=== PATIENT | male | born 1970 | race Caucasian/White ===

== ENCOUNTER → 2016-10-27 | Outpatient (CLI) | payer OTHER ==
--- NOTE | 2016-10-29 10:43 | PE ---
Nuclear medicine PET/CT HISTORY: Esophageal carcinoma Patient received 9.8 mCi F-18 FDG intravenously and delayed scanning performed from the skull base th rough the mid thighs. Localization and attenuation correction CT scan was performed Correlation to previous nuclear medicine PET/CT July FINDINGS: Neck and chest: There is a nodular density seen at the left costophrenic angle measuring 12 mm not pr esent on previous exam, no uptake seen. Some postinflammatory change present at the right lung base m edially similar to prior and may be postinflammatory and shows only mild uptake, SUV less than 2. Sim ilarly in the lingula peripherally there is a somewhat nodular area present measuring 11 mm not seen on prior PET/CT, no uptake seen. Distal esophageal thickening extending into the stomach is again not ed SUV 4-5. No mediastinal, axillary, or hilar adenopathy. Abdomen pelvis: No retroperitoneal adenopathy. There is a jejunal tube present in the left lower quad rant. Uptake in the anal region is likely physiologic. IMPRESSION: Metastatic disease is not evident. Hypermetabolic uptake compatible with patient's known esophageal carcinoma.
== END | disposition home or self-care (01) ==
LOC: RADPETMAIN 12:35
PROVIDERS: ATTEND Radiology Radiation Oncology
DX: C15.5 Malignant neoplasm of lower third of esophagus (principal)
CPT/HCPCS: 78815; A9552

== ENCOUNTER → 2016-11-20 | Outpatient (CLI) | payer OTHER ==
--- NOTE | 2016-11-20 17:28 | CT ---
EXAMINATION TYPE: CT abdomen pelvis w con DATE OF EXAM: 11/20/2016 5:02 PM COMPARISON: PET/CT October 27, 2016 HISTORY: History of esophageal cancer. Right upper quadrant pain x [address] DLP: 805.20 mGycm. Automated exposure control for dose reduction was used. TECHNIQUE: Helical acquisition of images was performed from the lung bases through the pelvis. CONTRAST: Performed with Oral Contrast and with IV Contrast, patient injected with 100 mL of Omnipaqu e 300. FINDINGS: The previously seen distal esophageal mural thickening extending into the stomach has incre ased in its dimensions, previously measuring 2.5 cm serosa to serosa in the AP dimension, now measuri ng 3.6 cm from serosa to serosa in the AP dimension. The transverse measurement exceeds 7 cm presentl y, showing mural thickening of the gastric cardia; this transverse dimension previously measured appr oximately 5.5 cm. There are small ill-defined opacities at the left lung base both anteriorly and posteriorly. Nonspeci fic, these appear to represent inflammatory change without aleksandr consolidation. Visualized pleural an d pericardial spaces are negative. The stomach is moderately distended, mildly more so than the previous study. The liver, biliary tree, pancreas, spleen, kidneys, adrenals, bowel and vasculature are unremarkable. Jejunostomy tube apprec iated, and unremarkable in appearance. In the pelvis, the vasculature is unremarkable. The solid and hollow viscera are also unremarkable. N o mass or mass effect. No adenopathy. Skeletal structures are unremarkable. IMPRESSION: 1. INTERVAL WORSENING WITH DISTAL ESOPHAGEAL THICKENING INCREASED SINCE THE PRIOR STUDY. 2. Mild inflammatory changes at the left lung base.
== END ==
LOC: RADCTMAIN 14:58
PROVIDERS: ATTEND Internal Medicine Hematology & Oncology
DX: R10.84 Generalized abdominal pain (principal)
CPT/HCPCS: 74177; Q9967

== ENCOUNTER 2016-11-23 11:27 | Day surgery (SDC) | payer OTHER ==
[2016-11-22 12:17] VITALS: BMI 25.7
[~2016-11-23 11:27] MED LIST: DEXAMETHASONE SOD PHOSPHATE 10 MG/ML 1 ML VIAL IV ONE; LACTATED RINGERS 1,000 ML IV SCH; MIDAZOLAM 2 MG/2 ML VIAL IV PRN; ONDANSETRON 4 MG/2 ML VIAL IVP ONE; SCOPOLAMINE 1.5MG/72HR PATCH TRANSDERM ONE; fentaNYL (PF) 50 MCG/ML 2 ML AMP IV PRN
[2016-11-23] MEDS ORDERED: LACTATED RINGERS 1,000 ML IV ONE (11:50)
[2016-11-23] MEDS ORDERED: LIDOCAINE 1% 20 ML VIAL (10MG/ML) FOR IV START INTRADERMA ONE (11:51)
[2016-11-23] MEDS ORDERED: ONDANSETRON 4 MG/2 ML VIAL IVP ONE (11:53)
[2016-11-23 11:59] VITALS: TEMP 98
[2016-11-23] MEDS ORDERED: PROPOFOL 10 MG/ML 20 ML VIAL IV ONE (12:48)
[2016-11-23] MEDS ORDERED: LIDOCAINE 1% INJ 10MG/ML (20 ML MDV) ONE (12:48)
--- NOTE | 2016-11-23 13:07 | P.PCN ---
Date of Procedure: 11/23/16 Procedure(s) Performed: BRIEF HISTORY: Patient is a 45-year-old, pleasant, white male, scheduled for an upper endoscopy as a part of follow-up of esophageal adenocarcinoma diagnosed in July 2016. He is status post neoadjuvant chemoradiation which ended about a month ago. He lost 40 pounds since the onset of his symptoms. He has been complaining of epigastric and right upper quadrant abdominal pain. He had a CT of the abdomen and pelvis done in the last week and was noted to have thickening of the distal esophagus. He is hence scheduled for an upper endoscopy as a follow-up. PROCEDURE PERFORMED: Esophagogastroduodenoscopy with biopsy. PREOPERATIVE DIAGNOSIS: Follow-up distal esophageal adenocarcinoma diagnosed in July 2016 status post chemoradiation therapy that ended a month ago. IV sedation per anesthesia. PROCEDURE: After informed consent was obtained, the patient was brought into the endoscopy unit. IV sedation was administered by Anesthesia under continuous monitoring. Initially the Olympus GIF-140 video endoscope was inserted into the mouth. Esophagus intubated without any difficulty. It was gradually advanced into the stomach and duodenum and carefully examined. The bulb and the second part of the duodenum appeared normal. The scope at this time was withdrawn to the stomach, adequately insufflated with air, and upon careful examination, mucosa of the antrum, body, cardia and the fundus appeared normal. The scope was then withdrawn into the esophagus. The GE junction was located at 40 cm from the incisors. There was a 1.5 cm polypoid mass noted in the distal esophagus just above the GE junction which was biopsied. There were changes consistent with radiation induced esophagitis extending from 30-40 cm from the incisors with mucosal erythema and exudates. At 25 cm from the incisors there were 2 small nodular areas identified and this was also biopsied. The proximal esophagus appeared normal and the patient tolerated the procedure well. IMPRESSION: 1. Distal esophageal polypoid mass measuring 1 cm in size, status post biopsies. 2. Radiation esophagitis. 3. 2 small nodules noted in the mid esophagus at 25 cm from the incisors status post biopsies. RECOMMENDATIONS: The findings of this examination were discussed with the patient as well as his family. He was advised to follow with the biopsy results and follow with , as scheduled.
[2016-11-23 13:35] VITALS: RESP 16
[2016-11-23 13:44] VITALS: BP 115/80; PULSE 99
== END 2016-11-23 13:51 | disposition home or self-care (01) ==
LOC: ORWHC2ENDO 11:27
PROVIDERS: ATTEND Internal Medicine Gastroenterology
DX: C15.5 Malignant neoplasm of lower third of esophagus (principal); K21.0 Gastro-esophageal reflux disease with esophagitis; K22.10 Ulcer of esophagus without bleeding; Z92.21 Personal history of antineoplastic chemotherapy; Z92.3 Personal history of irradiation; Z79.899 Other long term (current) drug therapy; Z88.5 Allergy status to narcotic agent; Z88.8 Allergy status to other drugs, medicaments and biological substances; Z93.1 Gastrostomy status
CPT/HCPCS: 88305; 88342; 43239; J2405; J2001; J2704

== ENCOUNTER → 2017-02-23 | Outpatient (CLI) | payer OTHER ==
--- NOTE | 2017-02-23 12:21 | PE ---
EXAMINATION TYPE: PET CT fusion skull to thigh DATE OF EXAM: 02/23/2017 CLINICAL HISTORY: EXAMINATION TYPE: PET CT fusion skull to thigh CLINICAL HISTORY: Esophageal cancer progress study with interval surgery December 21, 2016. TECHNIQUE: Following the intravenous administration of 13.78 mCi of F-18 FDG, whole body images are performed from the skull base to the midthigh. Images are reviewed on the computer in the coronal, axial, and sagittal planes. Reconstructed rotating images are created on independent workstation and reviewed on the computer. A non-contrast CT is performed in conjunction with the PET scan. COMPARISON: Prior PET/CT October [address] abdomen and pelvis November 20, 2016. FINDINGS: SKULL BASE AND NECK: No suspicious hypermetabolic uptake is seen in the neck suggest neck adenopathy . CHEST, MEDIASTINUM, AND HILAR REGION: There are postsurgical changes from total esophagectomy and gas tric pull-up procedure identified. No areas of suspicious hypermetabolic uptake are present in the th orax. ABDOMEN AND PELVIS: No suspicious hypermetabolic uptake is seen in the abdomen or pelvis. OSSEOUS STRUCTURES: No suspicious hypermetabolic uptake is seen in osseous structures. OTHER CT: Some coronary artery calcification is redemonstrated. There is tiny pericardial effusion an teriorly and inferiorly seen slightly more prominent versus prior studies. Small degree of bilateral gynecomastia is redemonstrated. Some central zone calcifications are seen in normal size prostate gland. There is some facet arthropathy in the lower lumbar spine. IMPRESSION: Interval surgery without abnormal hypermetabolic uptake to suggest residual or metastatic malignancy.
== END | disposition home or self-care (01) ==
LOC: RADPETMAIN 09:13
PROVIDERS: ATTEND Radiology Radiation Oncology
DX: C15.5 Malignant neoplasm of lower third of esophagus (principal); Z98.890 Other specified postprocedural states
CPT/HCPCS: 78815; A9552

== ENCOUNTER 2017-04-10 07:34 | Day surgery (SDC) | payer OTHER ==
[~2017-04-10 07:34] MED LIST changes: -DEXAMETHASONE SOD PHOSPHATE 10 MG/ML 1 ML VIAL IV ONE; -MIDAZOLAM 2 MG/2 ML VIAL IV PRN; -ONDANSETRON 4 MG/2 ML VIAL IVP ONE; -SCOPOLAMINE 1.5MG/72HR PATCH TRANSDERM ONE; -fentaNYL (PF) 50 MCG/ML 2 ML AMP IV PRN
[2017-04-10] MEDS ORDERED: DEXAMETHASONE SOD PHOSPHATE 10 MG/ML 1 ML VIAL IV ONE (08:49)
[2017-04-10 08:52] VITALS: TEMP 97.9
[2017-04-10] MEDS ORDERED: ONDANSETRON 4 MG/2 ML VIAL IVP STA (08:53)
[2017-04-10] MEDS ORDERED: fentaNYL (PF) 50 MCG/ML 2 ML AMP ONE (09:06)
[2017-04-10] MEDS ORDERED: PROPOFOL 10 MG/ML 20 ML VIAL IV ONE (09:06)
[2017-04-10] MEDS ORDERED: LIDOCAINE 1% INJ 10MG/ML (20 ML MDV) ONE (09:06)
[2017-04-10] MEDS ORDERED: LIDOCAINE 1% 20 ML VIAL (10MG/ML) FOR IV START INTRADERMA ONE (09:07)
--- NOTE | 2017-04-10 09:28 | P.PCN ---
Date of Procedure: 04/10/17 Preoperative Diagnosis: Postoperative Diagnosis: Procedure(s) Performed: BRIEF HISTORY: Patient is a 46-year-old, pleasant, white male, diagnosed with distal esophageal signet cell type adenocarcinoma in July 2016 following which she underwent neoadjuvant chemoradiation and subsequently total esophagectomy with gastric pull-through at [facility] in December 2016. According to the patient, the surgical margins at the anastomosis were positive for malignant cells. He was recently seen by Dr. Coyle, thoracic surgeon at [facility] who recommended an upper endoscopy with biopsies to evaluate further. Patient presently is asymptomatic. Denies any dysphagia. He has occasional passive regurgitation. PROCEDURE PERFORMED: Esophagogastroduodenoscopy with biopsy. PREOPERATIVE DIAGNOSIS: Follow-up distal esophageal adenocarcinoma diagnosed in July 2016 status post neoadjuvant chemoradiation and surgery in 2069. IV sedation per anesthesia. PROCEDURE: After informed consent was obtained, the patient was brought into the endoscopy unit. IV sedation was administered by Anesthesia under continuous monitoring. Initially the Olympus GIF-140 video endoscope was inserted into the mouth. Esophagus intubated without any difficulty. It was gradually advanced and at 19 cm from the incisors the gastroesophageal anastomosis was identified. The anastomotic site appeared normal. There was no mucosal abnormality, friability or masses identified. However multiple biopsies were done from the anastomosis. The scope at this time was advanced through the gastric pull- through into the antrum and to the duodenum. The bulb and the second part of the duodenum appeared normal. The scope at this time was withdrawn to the stomach, adequately insufflated with air, and upon careful examination, mucosa of the antrum, body, appeared normal. There was small amount of retained food noted in the stomach. Retroflexion was performed in the stomach and the gastroesophageal anastomosis was once again visualized and the mucosa just distal to the anastomosis including the gastric folds appeared normal. The scope was then withdrawn into the esophagus. The GE anastomosis was located at 19 cm from the incisors. The rest of the proximal esophagus appeared normal and the patient tolerated the procedure well. IMPRESSION: 1. Normal-appearing esophagogastric anastomosis at 19 cm from the incisors with no tumor recurrence, status post multiple biopsies. 2. Small amount of retained food in the stomach. RECOMMENDATIONS: The findings of this examination were discussed with the patient as well as his family. As requested by the patient said be sent to Dr. Coyle at [facility] directly. Implants: Indications for Procedure: Operative Findings: Description of Procedure:
[2017-04-10 09:49] VITALS: BP 110/71; PULSE 78; RESP 18
== END 2017-04-10 09:59 | disposition home or self-care (01) ==
LOC: ORWHC2ENDO 07:34
PROVIDERS: ATTEND Internal Medicine Gastroenterology
DX: Z09 Encounter for follow-up examination after completed treatment for conditions other than malignant neoplasm (principal); Z85.01 Personal history of malignant neoplasm of esophagus; K21.0 Gastro-esophageal reflux disease with esophagitis; K29.50 Unspecified chronic gastritis without bleeding; Z90.49 Acquired absence of other specified parts of digestive tract; J45.990 Exercise induced bronchospasm; Z79.891 Long term (current) use of opiate analgesic; Z79.899 Other long term (current) drug therapy; Z88.5 Allergy status to narcotic agent; Z88.8 Allergy status to other drugs, medicaments and biological substances
CPT/HCPCS: 88305; 88342; 43239; J1100; J2405; J2001; J3010; J2704

== ENCOUNTER → 2017-06-22 | Outpatient (CLI) | payer OTHER ==
--- NOTE | 2017-06-22 13:59 | PE ---
Nuclear medicine PET/CT HISTORY: Esophageal carcinoma subsequent Patient received 13 mCi F-18 FDG intravenously in delayed scanning performed from the skull base to t he mid thighs. Localization and attenuation correction CT scan was performed. Correlation to prior nuclear medicine PET/CT 02/23/2017 Neck and chest: Patient shows esophagectomy and gastric pull-through change. No evident adenopathy or suspicious hypermetabolic uptake. Subcentimeter nodularity in the left lower lobe is no longer evide nt. Subpleural nodule in the left upper lobe on axial image 79 is subcentimeter in size and stable. S ome left lower lobe atelectatic change is present. Minimal left pleural effusion may be present. Abdomen pelvis: No suspicious hypermetabolic uptake. The previously identified left-sided hydronephro sis and distal left ureteral calculus has resolved. Osseous structures are stable and unremarkable. IMPRESSION: Postop changes, recurrence is not evident. Additional findings above.
== END | disposition home or self-care (01) ==
LOC: RADPETMAIN 08:36
PROVIDERS: ATTEND Internal Medicine Hematology & Oncology
DX: C15.9 Malignant neoplasm of esophagus, unspecified (principal); Z98.890 Other specified postprocedural states
CPT/HCPCS: 78815; A9552

== ENCOUNTER 2017-06-27 11:54 | Day surgery (SDC) | payer OTHER ==
[2017-06-25 16:52] VITALS: BMI 26.6
[2017-06-27 12:17] VITALS: TEMP 97.9
[2017-06-27] MEDS ORDERED: LIDOCAINE 1% 20 ML VIAL (10MG/ML) FOR IV START INTRADERMA ONE (12:33)
[2017-06-27] MEDS ORDERED: LIDOCAINE 1% INJ 10MG/ML (20 ML MDV) ONE (12:42)
[2017-06-27] MEDS ORDERED: ONDANSETRON 4 MG/2 ML VIAL IVP ONE (12:42)
[2017-06-27] MEDS ORDERED: PROPOFOL 10 MG/ML 20 ML VIAL IV ONE (12:42)
[2017-06-27 13:14] VITALS: RESP 18
--- NOTE | 2017-06-27 13:30 | P.PCN ---
Date of Procedure: 06/27/17 Procedure(s) Performed: BRIEF HISTORY: Patient is a 46-year-old, pleasant, white male who was diagnosed with distal esophageal adenocarcinoma in July 2016, status post neoadjuvant chemoradiation followed by surgery in November of this year. He presents with the intermittent dysphagia to solids as well as passive regurgitation and hence is An upper endoscopy with a possible dilation today. PROCEDURE PERFORMED: Esophagogastroduodenoscopy. PREOPERATIVE DIAGNOSIS: Follow-up esophageal cancer status post surgery in November of this year, intermittent dysphagia and passive regurgitation. IV sedation per anesthesia. PROCEDURE: After informed consent was obtained, the patient was brought into the endoscopy unit. IV sedation was administered by Anesthesia under continuous monitoring. Initially the Olympus GIF-140 video endoscope was inserted into the mouth. Esophagus intubated without any difficulty. It was gradually advanced and there was evidence of a anastomosis located at 20 cm from the incisors which appeared widely patent. There was evidence of gastric pull-through surgery but there was large amount of retained food noted. The scope was advanced into the stomach and duodenum. The bulb and the second part of the duodenum appeared normal. The scope at this time was withdrawn to the stomach, adequately insufflated with air, and upon careful examination, mucosa of the antrum, body, had large amount of food consistent with gastroparesis. The scope was then withdrawn into the esophagus. The anastomosis appeared widely patent. The proximal to Bi esophagus appeared normal and the patient tolerated the procedure well. IMPRESSION: 1. Patent esophagogastric anastomosis with no evidence of stricture. 2. Gastroparesis related to recent esophageal surgery.. RECOMMENDATIONS: The findings of this examination were discussed with the patient as well as his family. He was advised to be on small frequent meals and Prilosec 20 mg daily..
[2017-06-27 13:31] VITALS: BP 101/68; PULSE 94
== END 2017-06-27 13:44 | disposition home or self-care (01) ==
LOC: ORWHC2ENDO 11:54
PROVIDERS: ATTEND Internal Medicine Gastroenterology
DX: K31.84 Gastroparesis (principal); R13.10 Dysphagia, unspecified; Z85.01 Personal history of malignant neoplasm of esophagus; Z92.21 Personal history of antineoplastic chemotherapy; Z92.3 Personal history of irradiation; J45.909 Unspecified asthma, uncomplicated; K21.9 Gastro-esophageal reflux disease without esophagitis; Z88.5 Allergy status to narcotic agent; Z88.8 Allergy status to other drugs, medicaments and biological substances; Z79.891 Long term (current) use of opiate analgesic; Z79.899 Other long term (current) drug therapy
CPT/HCPCS: 43235; J2405; J2001; J2704

== ENCOUNTER 2017-06-27 16:23 | Emergency (ER) | payer OTHER ==
[2017-06-27] MEDS ORDERED: SODIUM CHLORIDE 0.9% 500 ML IV STA (16:30)
[2017-06-27] MEDS ORDERED: ONDANSETRON 4 MG/2 ML VIAL IVP STA (16:42)
--- NOTE | 2017-06-27 16:53 | ED ---
Overdose HPI - General Chief Complaint: Overdose Stated Complaint: overdose Time Seen by Provider: 06/27/17 16:23 Source: patient, EMS, RN notes reviewed Mode of arrival: EMS Limitations: no limitations - History of Present Illness Initial Comments: This is a 46-year-old male with a history of esophageal and stomach cancer who just had a scope earlier today he went home after the scope procedure and did smoke some marijuana and took that a lot of pain medication. He apparently became unresponsive. EMS was called. Patient was found be pulseless and apneic per the initial caregivers CPR was started for about one to one half minutes. Patient was assisted by paramedics on 11 room through a narrow hallway he sat up by himself. He was given Narcan 1 mg in each nostril apparently prior to this. He was brought in for evaluation patient denies any intentional harm to himself. He is not recall some of the events. He denies any fevers chills or sweats he does have some nausea he was given Zofran and route. Also complains chest pain where the CPR was performed. He has no other complaints at this time. MD Complaint: accidental overdose - Related Data Home Medications Medication Instructions Recorded Confirmed ALPRAZolam [Xanax] 1 mg PO Q6HR PRN 11/22/16 06/27/17 Famotidine [Pepcid] 20 mg PO BID 11/22/16 06/27/17 traZODone HCL 150 mg PO HS 11/22/16 06/27/17 HYDROmorphone [Dilaudid] 2 mg PO Q4H PRN 04/05/17 06/27/17 Dexlansoprazole [Dexilant] 60 mg PO DAILY 06/25/17 06/27/17 fentaNYL 100MCG/HR PATCH 100 mcg TRANSDERM Q72H 06/25/17 06/27/17 [Duragesic 100MCG/HR] Prochlorperazine [Compazine] 10 mg PO Q6H PRN 06/27/17 06/27/17 Pseudoephedrine HCl [Sudafed] 60 mg PO Q6HR PRN 06/27/17 06/27/17 Allergies Allergy/AdvReac Type Severity Reaction Status Date / Time hydrocodone [From [place]] Allergy Nausea & Verified 06/27/17 16:54 Vomiting metoclopramide [From Reglan] Allergy body Verified 06/27/17 16:54 jerks, suicidal thoughts Review of Systems ROS Statement: Those systems with pertinent positive or pertinent negative responses have been documented in the HPI. ROS Other: All systems not noted in ROS Statement are negative. Past Medical History Past Medical History: Cancer Additional Past Medical History / Comment(s): EXCERCISE INDUCED ASTHMA. esophageal cancer, stomach cancer. History of Any Multi-Drug Resistant Organisms: None Reported Additional Past Surgical History / Comment(s): MULT SX FOR CLEFT LIP. GAGAN LASIK. BONE GRAFT Past Anesthesia/Blood Transfusion Reactions: Postoperative Nausea & Vomiting ( PONV) Past Psychological History: No Psychological Hx Reported Smoking Status: Never smoker Past Alcohol Use History: None Reported Past Drug Use History: Marijuana - Past Family History Mother Family Medical History: No Reported History General Exam - General Exam Comments Initial Comments: This is a well-developed well-nourished awake alert but somewhat lethargic male he is oriented 3 Limitations: no limitations General appearance: alert, in no apparent distress Head exam: Present: atraumatic, normocephalic, normal inspection Eye exam: Present: normal appearance, PERRL, EOMI. Absent: scleral icterus, conjunctival injection, periorbital swelling ENT exam: Present: normal exam, mucous membranes moist Neck exam: Present: normal inspection. Absent: tenderness, meningismus, lymphadenopathy Respiratory exam: Present: normal lung sounds bilaterally, chest wall tenderness. Absent: respiratory distress, wheezes, rales, rhonchi, stridor Cardiovascular Exam: Present: regular rate, normal rhythm, normal heart sounds. Absent: systolic murmur, diastolic murmur, rubs, gallop, clicks GI/Abdominal exam: Present: soft, normal bowel sounds. Absent: distended, tenderness, guarding, rebound, rigid Extremities exam: Present: normal inspection, full ROM, normal capillary refill. Absent: tenderness, pedal edema, joint swelling, calf tenderness Back exam: Present: normal inspection Neurological exam: Present: alert, oriented X3, CN II-XII intact Psychiatric exam: Present: normal affect, normal mood Skin exam: Present: warm, dry, intact, normal color. Absent: rash Course Vital Signs 06/27/17 06/27/17 06/27/17 16:25 17:35 19:05 Temperature 97.6 F Pulse Rate 100 104 H 97 Respiratory 18 18 18 Rate Blood Pressure 146/81 125/73 114/74 O2 Sat by Pulse 98 100 96 Oximetry Medical Decision Making - Medical Decision Making I did discuss the findings with the patient he is awake alert oriented 3 he will be discharged with family. - Lab Data Result diagrams: 06/27/17 16:37 06/27/17 16:37 Lab Results 06/27/17 06/27/17 06/27/17 Range/Units 16:37 16:37 16:37 WBC 4.0 (3.8-10.6) k/uL RBC 3.98 L (4.30-5.90) m/uL Hgb 10.2 L (13.0-17.5) gm/dL Hct 32.3 L (39.0-53.0) % MCV 80.9 (80.0-100.0) fL MCH 25.7 (25.0-35.0) pg MCHC 31.7 (31.0-37.0) g/dL RDW 17.1 H (11.5-15.5) % Plt Count 178 (150-450) k/uL Neutrophils % 72 % Lymphocytes % 21 % Monocytes % 4 % Eosinophils % 1 % Basophils % 0 % Neutrophils # 2.9 (1.3-7.7) k/uL Lymphocytes # 0.9 L (1.0-4.8) k/uL Monocytes # 0.2 (0-1.0) k/uL Eosinophils # 0.1 (0-0.7) k/uL Basophils # 0.0 (0-0.2) k/uL Hypochromasia Marked Anisocytosis Slight Sodium 138 (137-145) mmol/L Potassium 3.6 (3.5-5.1) mmol/L Chloride 104 (98-107) mmol/L Carbon Dioxide 25 (22-30) mmol/L Anion Gap 9 mmol/L BUN 12 (9-20) mg/dL Creatinine 0.80 (0.66-1.25) mg/dL Est GFR (MDRD) Af Amer >60 (>60 ml/min/1.73 sqM) Est GFR (MDRD) Non-Af >60 (>60 ml/min/1.73 sqM) Glucose 169 H (74-99) mg/dL Calcium 8.7 (8.4-10.2) mg/dL Magnesium 1.8 (1.6-2.3) mg/dL Total Bilirubin 0.2 (0.2-1.3) mg/dL AST 21 (17-59) U/L ALT 27 (21-72) U/L Alkaline Phosphatase 79 (38-126) U/L Total Creatine Kinase 45 L (55-170) U/L CK-MB (CK-2) <0.2 (0.0-2.4) ng/mL CK-MB (CK-2) Rel Index Troponin I <0.012 (0.000-0.034) ng/mL Total Protein 6.3 (6.3-8.2) g/dL Albumin 3.7 (3.5-5.0) g/dL Amylase <30 L (30-110) U/L Lipase 35 (23-300) U/L Salicylates <1.0 mg/dL Urine Opiates Screen (NotDetected) Ur Oxycodone Screen (NotDetected) Urine Methadone Screen (NotDetected) Ur Propoxyphene Screen (NotDetected) Acetaminophen <10.0 ug/mL Ur Barbiturates Screen (NotDetected) U Tricyclic Antidepress (NotDetected) Ur Phencyclidine Scrn (NotDetected) Ur Amphetamines Screen (NotDetected) U Methamphetamines Scrn (NotDetected) U Benzodiazepines Scrn (NotDetected) Urine Cocaine Screen (NotDetected) U Marijuana (THC) Screen (NotDetected) Serum Alcohol <10 mg/dL 06/27/17 Range/Units 18:00 WBC (3.8-10.6) k/uL RBC (4.30-5.90) m/uL Hgb (13.0-17.5) gm/dL Hct (39.0-53.0) % MCV (80.0-100.0) fL MCH (25.0-35.0) pg MCHC (31.0-37.0) g/dL RDW (11.5-15.5) % Plt Count (150-450) k/uL Neutrophils % % Lymphocytes % % Monocytes % % Eosinophils % % Basophils % % Neutrophils # (1.3-7.7) k/uL Lymphocytes # (1.0-4.8) k/uL Monocytes # (0-1.0) k/uL Eosinophils # (0-0.7) k/uL Basophils # (0-0.2) k/uL Hypochromasia Anisocytosis Sodium (137-145) mmol/L Potassium (3.5-5.1) mmol/L Chloride (98-107) mmol/L Carbon Dioxide (22-30) mmol/L Anion Gap mmol/L BUN (9-20) mg/dL Creatinine (0.66-1.25) mg/dL Est GFR (MDRD) Af Amer (>60 ml/min/1.73 sqM) Est GFR (MDRD) Non-Af (>60 ml/min/1.73 sqM) Glucose (74-99) mg/dL Calcium (8.4-10.2) mg/dL Magnesium (1.6-2.3) mg/dL Total Bilirubin (0.2-1.3) mg/dL AST (17-59) U/L ALT (21-72) U/L Alkaline Phosphatase (38-126) U/L Total Creatine Kinase (55-170) U/L CK-MB (CK-2) (0.0-2.4) ng/mL CK-MB (CK-2) Rel Index Troponin I (0.000-0.034) ng/mL Total Protein (6.3-8.2) g/dL Albumin (3.5-5.0) g/dL Amylase (30-110) U/L Lipase (23-300) U/L Salicylates mg/dL Urine Opiates Screen Not Detected (NotDetected) Ur Oxycodone Screen Not Detected (NotDetected) Urine Methadone Screen Not Detected (NotDetected) Ur Propoxyphene Screen Not Detected (NotDetected) Acetaminophen ug/mL Ur Barbiturates Screen Not Detected (NotDetected) U Tricyclic Antidepress Not Detected (NotDetected) Ur Phencyclidine Scrn Not Detected (NotDetected) Ur Amphetamines Screen Not Detected (NotDetected) U Methamphetamines Scrn Not Detected (NotDetected) U Benzodiazepines Scrn Detected H (NotDetected) Urine Cocaine Screen Not Detected (NotDetected) U Marijuana (THC) Screen Detected H (NotDetected) Serum Alcohol mg/dL - EKG Data EKG shows normal: sinus rhythm (Sinus tachycardia rate of 113. A 144 QRS 90 QT since QTC of 340/[address]-T wave changes.) - Radiology Data Radiology results: image reviewed Interpreted by me: I did review the imaging and reports no acute findings. Disposition Clinical Impression: Accidental medication overdose, Chest wall pain Disposition: HOME SELF-CARE Condition: Good Instructions: Opioid Overdose (ED), Chest Wall Pain (ED) Referrals: Suman Perez MD [Primary Care Provider] - 1-2 days
[2017-06-27 16:56] LABS: Anisocytosis Slight; Basophils % (A) 0 %; CH 24.7; CHCM 30.6; Eosinophils # (A) 0.1 k/uL (0-0.7); Eosinophils % (A) 1 %; HCT 32.3 % (39.0-53.0); HGB 10.2 gm/dL (13.0-17.5); Hypochromasia Marked; Luc # (Auto) 0.05; Luc % (Auto) 1; Lymphocytes # (A) 0.9 k/uL (1.0-4.8); Lymphocytes % (A) 21 %; MCH 25.7 pg (25.0-35.0); MCHC 31.7 g/dL (31.0-37.0); MCV 80.9 fL (80.0-100.0); Mean Platelet Volume 7.6; Monocytes # (A) 0.2 k/uL (0-1.0); Monocytes % (A) 4 %; Neutrophils # (A) 2.9 k/uL (1.3-7.7); Neutrophils % (A) 72 %; RBC 3.98 m/uL (4.30-5.90); RDW 17.1 % (11.5-15.5); WBC (Perox) 3.93
[2017-06-27 16:59] VITALS: RESP 18
[2017-06-27 17:00] LABS: ALT 27 U/L (21-72); AST 21 U/L (17-59); Acetaminophen <10.0 ug/mL; Alcohol <10 mg/dL; Alkaline Phosphatase 79 U/L (38-126); Amylase <30 U/L (30-110); Anion Gap 9 mmol/L; Blood Urea Nitrogen 12 mg/dL (9-20); Calcium 8.7 mg/dL (8.4-10.2); Carbon Dioxide 25 mmol/L (22-30); Chloride 104 mmol/L (98-107); Glucose 169 mg/dL (74-99); Magnesium 1.8 mg/dL (1.6-2.3); Non-African American GFR(MDRD) >60 (>60 ml/min/1.73 sqM); Potassium 3.6 mmol/L (3.5-5.1); Salicylate <1.0 mg/dL; Sodium 138 mmol/L (137-145); Total Bilirubin 0.2 mg/dL (0.2-1.3); Total Protein 6.3 g/dL (6.3-8.2)
[2017-06-27 17:02] LABS: Creatine Kinase 45 U/L (55-170)
[2017-06-27 17:16] LABS: Creatine Kinase MB <0.2 ng/mL (0.0-2.4); Troponin I <0.012 ng/mL (0.000-0.034)
--- NOTE | 2017-06-27 18:09 | XR ---
EXAMINATION TYPE: XR chest 2V DATE OF EXAM: 06/27/2017 HISTORY: cough. REFERENCE: NONE. FINDINGS: The heart is upper limits of normal in size. There is some linear stranding in the left reuben g base, likely representing platelike atelectasis. The lungs are otherwise clear. Pleural spaces are clear. IMPRESSION: 1. BORDERLINE CARDIOMEGALY. 2. PLATELIKE ATELECTASIS, LEFT LUNG BASE.
[2017-06-27 19:36] VITALS: BP 129/72; PULSE 103; TEMP 98
== END 2017-06-27 19:36 | disposition home or self-care (01) ==
LOC: EC 16:23
DX: T50.7X1A Poisoning by analeptics and opioid receptor antagonists, accidental (unintentional), initial encounter (principal); R07.89 Other chest pain; R11.0 Nausea; Z85.01 Personal history of malignant neoplasm of esophagus; Z85.028 Personal history of other malignant neoplasm of stomach; Z79.899 Other long term (current) drug therapy; Z88.5 Allergy status to narcotic agent; Z88.8 Allergy status to other drugs, medicaments and biological substances
CPT/HCPCS: 36415; 93005; 80053; 82150; 82550; 82553; 83690; 83735; 84484; 85025; 80306; 83520 ×2; 80320; 71020; 99284; 96374; 96361 ×2; J2405

== ENCOUNTER → 2017-10-26 | Outpatient (CLI) | payer OTHER ==
--- NOTE | 2017-10-29 07:26 | PE ---
EXAMINATION TYPE: PET CT fusion skull to thigh DATE OF EXAM: 10/26/2017 COMPARISON: 10/26/2017, 06/22/2017, 02/23/2017, 10/27/2016 and 08/04/2016. HISTORY: Esophageal carcinoma treated with gastric pull-through, radiation therapy most recently in 2016 and chemotherapy most recently in September 2016. Subsequent treatment strategy (PS) a re staging or treatment monitoring. TECHNIQUE: Following the intravenous administration of 13.082 mCi of F-18 FDG, whole body images are performed from the skull base to the midthigh. Images are reviewed on the computer in the coronal, axial, and sagittal planes. Reconstructed rotating images are created on independent workstation and reviewed on the computer. A localization and attenuation correction CT is performed in conjunction with the PET scan. SCAN: 5 FINDINGS: Background mediastinum: 1.73 Background abdomen: 2.66 SKULL BASE AND NECK: Uptake within the left true vocal cord with a maximum SUV of 2.35 is likely due to usage during the examination is versus only slightly above mediastinal background. No suspicious h ypermetabolic uptake. CHEST, MEDIASTINUM, AND HILAR REGION: New stopped solid pulmonary masses and more vague areas of grou ndglass consolidation are now seen throughout the lungs predominating within the right upper lobe wit h the largest measuring up to 3.5 x 2.5 cm in the right upper lobe on series 3 image 82 with a maximu m SUV of 5.67. Anterior to this another elongated opacity within the right upper lobe measures 3.7 x 1.9 cm with a maximum SUV of 5.46. At the level of the raul within the superior segment of the righ t lower lobe another opacity measures 2.7 x 2.1 cm and has a maximum SUV of 4.5. The subsolid nodule/ patchy opacities within the left lung are more ill-defined and most confluent anteriorly within the l eft upper lobe such as on series 3 image 83 with a maximum SUV of 2.82. No adenopathy or suspicious uptake within the gastric pull-through is seen within the mediastinum or chest. ABDOMEN AND PELVIS: A single loop of small bowel within the right paracentral mid abdomen at the leve l of the umbilicus has a maximum SUV of 4.58 but may relate to physiologic bowel uptake peristalsis. Bowel is nondilated with no evidence of obstruction. Prostate gland is heterogenous containing centra l zone calcifications. OSSEOUS STRUCTURES: No suspicious hypermetabolic uptake. OTHER CT: There is a Bochdalek hernia present with herniation of colon and mesenteric fat that appear s nonentrapped on CT with no proximal dilatation or bowel wall thickening. Again there is evidence of prior gastric pull-through surgery. Few calcifications are noted at the carotid bifurcations. Cardia c size, ascending thoracic aorta and main pulmonary artery are within normal limits. No suspicious hepatic lesions are identified given limitation of noncontrast CT. Gallbladder is unrem arkable. The spleen, adrenal glands, and pancreas have an unremarkable unenhanced morphology of the p ancreas displays severe parenchymal atrophy. Kidneys are symmetric without hydronephrosis. Abdominal aorta is of normal course and caliber. No suspicious osseous lesions are seen. IMPRESSION: 1. New bilateral multifocal subsolid pulmonary nodules and areas of groundglass opacity are seen chantel uring up to 3.7 cm on the right considering the hypermetabolic activity an morphology, more conspicuo us on the right, are concerning for metastasis. Other considerations are for less likely multifocal p neumonia/pneumonitis. Bronchoscopy should be considered for further evaluation. 2. No evidence of adenopathy within the chest, abdomen, or pelvis or suspicious uptake surrounding th e gastric pull-through. 3. Incidentally noted hypermetabolic activity within the left vocal cord and right paracentral small bowel may be related to usage during the examination and peristalsis respectively.
== END | disposition home or self-care (01) ==
LOC: RADPETMAIN 08:19
PROVIDERS: ATTEND Internal Medicine Hematology & Oncology
DX: C15.9 Malignant neoplasm of esophagus, unspecified (principal); R91.8 Other nonspecific abnormal finding of lung field
CPT/HCPCS: 78815; A9552

== ENCOUNTER → 2017-12-27 | Outpatient (CLI) | payer OTHER ==
--- NOTE | 2017-12-28 11:17 | CT ---
EXAMINATION TYPE: CT chest wo con DATE OF EXAM: 12/27/2017 COMPARISON: Nuclear medicine PET/CT 10/26/2017 HISTORY: Patient complains of mild chest pain on deep inspiration. CT DLP: 503 mGycm. Automated Exposure Control for Dose Reduction was Utilized. TECHNIQUE: CT scan of the thorax is performed without IV contrast. FINDINGS: Lack of contrast could compromise sensitivity. LUNGS: The lungs are remarkable for scattered areas of groundglass opacity bilaterally within the reuben gs which are present peripherally and is somewhat less confluent or resolved in some areas, new and a dditional areas. There is no pleural effusion or pneumothorax seen. The tracheobronchial tree is pat ent. MEDIASTINUM: Lack of IV contrast is noted to limit evaluation for mediastinal and especially hilar ad enopathy. There are no definitive greater than 1 cm hilar or mediastinal lymph nodes. No cardiomega ly or pericardial effusion is seen. Patient's neoesophagus and gastric pull-through procedure changes are again noted. OTHER: No additional significant abnormality is seen. IMPRESSION: Indeterminate areas of groundglass opacity are again scattered throughout the lungs, meta stasis, allergic alveolitis, multifocal pneumonia are all considerations.
== END ==
LOC: RADCTMAIN 19:19
PROVIDERS: ATTEND Thoracic Surgery (Cardiothoracic Vascular Surgery)
DX: R91.1 Solitary pulmonary nodule (principal)
CPT/HCPCS: 71250

== ENCOUNTER → 2018-04-28 | Outpatient (CLI) | payer OTHER ==
--- NOTE | 2018-04-28 13:43 | CT ---
EXAMINATION TYPE: CT chest w con DATE OF EXAM: 04/28/2018 COMPARISON: 12/27/2017 HISTORY: Follow up scan per patient. CT DLP: 274.5 mGycm Automated exposure control for dose reduction was used. CONTRAST: CT scan of the chest is performed with IV Contrast, patient injected with 100 mL of Isovue 300. FINDINGS: LUNGS: There is resolution of previously noted scattered groundglass infiltrates. Left basilar atelec tasis or parenchymal scarring noted. No evidence for a confluent infiltrate. No nodule or mass identi fied. There is no pleural effusion or pneumothorax seen. The tracheobronchial tree is patent. MEDIASTINUM: Esophagectomy with gastric pull-through again noted. No evidence for recurrent or residu al mass. There are no greater than 1 cm hilar or mediastinal lymph nodes. No pericardial effusion i s seen. Thoracic aorta is of normal caliber. The heart is not enlarged. UPPER ABDOMEN: No significant abnormality appreciated. OTHER: No additional significant abnormality is seen. IMPRESSION: 1. Postoperative changes of the gastric pull-through procedure without recurrent or residual disease. 2. Resolution of previously noted groundglass infiltrates throughout both lung martínez.
== END | disposition home or self-care (01) ==
LOC: RADCTMAIN 13:01
PROVIDERS: ATTEND Radiology Radiation Oncology
DX: C15.5 Malignant neoplasm of lower third of esophagus (principal); Z92.21 Personal history of antineoplastic chemotherapy; Z98.890 Other specified postprocedural states
CPT/HCPCS: 71260; Q9967

== ENCOUNTER 2018-06-27 09:36 | Day surgery (SDC) | payer OTHER ==
[2018-06-24 10:34] VITALS: BMI 25.5
[~2018-06-27 09:36] MED LIST changes: +LIDOCAINE 1% 20 ML VIAL (10MG/ML) FOR IV START INTRADERMA PRN
[2018-06-27 09:58] VITALS: RESP 16; TEMP 97.9
[2018-06-27] MEDS ORDERED: ONDANSETRON 4 MG/2 ML VIAL IVP ONE (10:08)
[2018-06-27] MEDS ORDERED: PROPOFOL 10 MG/ML 20 ML VIAL IV ONE (10:22)
[2018-06-27] MEDS ORDERED: LIDOCAINE 1% INJ 10MG/ML (20 ML MDV) ONE (10:22)
[2018-06-27] MEDS ORDERED: ePHEDrine SULFATE/0.9% NACL/PF 50 MG/5 ML SYRINGE IV ONE (10:22)
--- NOTE | 2018-06-27 10:39 | P.PCN ---
Date of Procedure: 06/27/18 Procedure(s) Performed: BRIEF HISTORY: Patient is a 47-year-old, pleasant, white male, scheduled for an upper endoscopy as a part of follow-up of esophageal adenocarcinoma diagnosed in July 2016. He status post neoadjuvant chemoradiation followed by distal esophagectomy with gastric pull-through in December 2016. Lately has been having intermittent episodes of nausea vomiting. He denies any dysphagia.. PROCEDURE PERFORMED: Esophagogastroduodenoscopy with biopsy. PREOPERATIVE DIAGNOSIS: Intermittent episodes of nausea/vomiting of 2 months duration/history of esophageal cancer status post neoadjuvant chemoradiation followed by surgery in December 2069. IV sedation per anesthesia. PROCEDURE: After informed consent was obtained, the patient was brought into the endoscopy unit. IV sedation was administered by Anesthesia under continuous monitoring. Initially the Olympus GIF-140 video endoscope was inserted into the mouth. Esophagus intubated without any difficulty. It was gradually advanced into the anastomosis that was located at 20 cm from the incisors which appeared normal. There was evidence of gastric pull-through surgery noted. Scope was advanced into the stomach and there was large amount of retained solid food noted suggestive of gastric varices. Despite multiple attempts I was not able to advance the scope into the duodenum because of retained food in the stomach. At this time stomach was adequately insufflated with air, and upon careful e xamination, the visualized mucosa of the antrum, body appeared normal. there were 2 small polyps noted in the proximal body of the stomach measuring about 3 mm and 5 mm in sizes actively both of which were biopsied. he scope was then withdrawn into the esophagus. The GE anastomosis as located at 20 cm from the incisors. There was no evidence of esophageal stricture. The rest of theesophagus appeared normal. There were no erosions or ulcerations seen and the patient tolerated the procedure well. IMPRESSION: 1. Normal-appearing GE anastomosis with no evidence of stricture or recurrent neoplasm 2. Retained food in the stomach suggestive of gastroparesis 3. Small polyps measuring 3 mm and 5 mm the proximal body the stomach status post biopsy. RECOMMENDATIONS: The findings of this examination were discussed with the patient as his f. He was advised to follow with the biopsy results. Intermittent nausea vomiting most likely is from gastroparesis related to esophageal surgery and he was advised to try small frequent meals And follow antireflux measures.
[2018-06-27 11:10] VITALS: BP 112/73; PULSE 89
== END 2018-06-27 11:31 | disposition home or self-care (01) ==
LOC: ORWHC2ENDO 09:36
PROVIDERS: ATTEND Internal Medicine Gastroenterology
DX: C16.9 Malignant neoplasm of stomach, unspecified (principal); K31.7 Polyp of stomach and duodenum; Z08 Encounter for follow-up examination after completed treatment for malignant neoplasm; K21.9 Gastro-esophageal reflux disease without esophagitis; J45.909 Unspecified asthma, uncomplicated; Z85.01 Personal history of malignant neoplasm of esophagus; Z92.21 Personal history of antineoplastic chemotherapy; Z92.3 Personal history of irradiation; Z79.899 Other long term (current) drug therapy; Z88.5 Allergy status to narcotic agent; Z79.891 Long term (current) use of opiate analgesic
CPT/HCPCS: 88305; 88342; 88341; 43239; J2405; J2001; J2704

== ENCOUNTER → 2018-06-27 | Outpatient (CLI) | payer OTHER ==
--- NOTE | 2018-06-28 17:25 | MR ---
EXAMINATION TYPE: MR brain wo/w con DATE OF EXAM: 06/27/2018 COMPARISON: NONE HISTORY: Espophageal CA, Syncope TECHNIQUE: Multiplanar, multisequence images of the brain and brainstem is performed without and with IV contras t, utilizing 7.5 mL intravenous Gadavist . FINDINGS: Diffusion weighted images demonstrate no evidence of a recent infarct or other diffusion ab normality. There is no extra-axial fluid collection or significant white matter signal abnormality. The ventricular system and cisternal spaces are normal in size and appearance. The brain volume is age appropriate. Midline structures demonstrate normal morphology. The craniocervical junction appears within normal limits. Post contrast images demonstrate no abnormal enhancement. The dural venous sinuses appear pa tent. The visualized sinuses display mild mucosal thickening of the ethmoid and maxillary sinuses and moderate mucosal thickening of the frontal sinuses. The sphenoid sinus and mastoid air cells are wel l aerated. Are clear and the globes are intact. IMPRESSION: 1. No abnormal postcontrast enhancement to suggest intracranial metastasis. 2. Moderate paranasal sinus disease. 3. No evidence of restricted diffusion to indicate acute or subacute infarct. No significant white ma tter change.
== END | disposition home or self-care (01) ==
LOC: RADMRIMAIN 13:49
PROVIDERS: ATTEND Nurse Practitioner Adult Health
DX: R55 Syncope and collapse (principal); C15.5 Malignant neoplasm of lower third of esophagus
CPT/HCPCS: 70553; A9585

== ENCOUNTER → 2018-06-28 | Outpatient (CLI) | payer OTHER ==
--- NOTE | 2018-07-01 13:15 | PE ---
Nuclear medicine PET/CT HISTORY: Esophageal carcinoma, subsequent Patient received 14.1 mCi F-18 FDG intravenously in delayed scanning was performed from the skull bas e to the mid thighs. Localization and attenuation correction CT scan was performed. Correlation to prior nuclear medicine PET/CT dated 10/26/2017 Neck And chest: Patient is status post esophagus projected December with gastric pull-through as on previo us exam. Groundglass opacities in the lungs are again noted, in the right lower lobe there is a decre ase in the extent, in the right upper lobe the apical abnormalities extend peripherally to the anteri or pleural surface, there is elevated SUV 5.9, more inferiorly there is some improvement in the right upper lobe, in the left upper lobe more confluent focus is present with SUV 4.2 although less extens norm as compared to prior exam, no pleural or pericardial effusion. Lower lobe subpleural hypermetabol ic uptake shows SUV of only 2.1-2.8 posteriorly. No mediastinal, axillary, or hilar adenopathy. Abdomen pelvis: No evident liver mass, no retroperitoneal adenopathy or ascites. No suspicious hyperm etabolic uptake. Diverticular change associated with the colon. Retained contrast material present wi thin the colon. Hydronephrosis noted within the left kidney has developed in the interval. Difficult to exclude a distal ureteral calculus. Right testis show some mild increased uptake, SUV 3.3, simila r to prior exam. Osseous structures: Focus of increased uptake is noted within the proximal right humerus medullary as pect, SUV is 2.3. Small focus of increased uptake at the medial aspect of the left clavicle shows an SUV of only 2.1. IMPRESSION: There is improvement in the volume of airspace abnormality seen within the lungs as veronkia red to prior exam. Interval left-sided hydronephrosis. Focal bone abnormalities are indeterminate, fo llow-up.
== END | disposition home or self-care (01) ==
LOC: RADPETMAIN 11:04
PROVIDERS: ATTEND Radiology Radiation Oncology
DX: M89.9 Disorder of bone, unspecified (principal); R91.8 Other nonspecific abnormal finding of lung field; N13.30 Unspecified hydronephrosis; C15.5 Malignant neoplasm of lower third of esophagus; Z92.21 Personal history of antineoplastic chemotherapy
CPT/HCPCS: 78815; A9552

== ENCOUNTER 2018-07-11 09:28 | Day surgery (SDC) | payer OTHER ==
[2018-07-09 17:09] VITALS: BMI 25.4
--- NOTE | 2018-07-11 07:41 | P.GSHP ---
History of Present Illness H&P Date: 07/11/18 Chief Complaint: Esophageal cancer 47-year-old male recently diagnosed with esophageal cancer. Patient undergoing chemotherapy for that. Here today for Port-A-Cath placement. Patient with worsening IV access. Past Medical History Past Medical History: Asthma, Cancer, GERD/Reflux Additional Past Medical History / Comment(s): EXCERCISE INDUCED ASTHMA (no current meds), ESOPHAGEAL & STOMACH CANCER (DIAGNOSED 07/2016, RECEIVED CHEMO & RADIATION - SEP TO OCTOBER 2016)., STOMACH PAIN. , PTS STATES NEW DIAGNOSIS OF STOMACH CANCER AND CANCER IN THE SPINE., SPITS UP SALIVA. History of Any Multi-Drug Resistant Organisms: None Reported Additional Past Surgical History / Comment(s): MULT SX FOR CLEFT LIP, LASIK , BONE GRAFT TAKEN FROM HIP TO HIS JAW (14YRS OLD), 1/4 OF STOMACH REMOVED AND ESOPHAGUS SURGERY FOR CANCER-(DECEMBER 2016 [facility]), EGD (06/27/18) Past Anesthesia/Blood Transfusion Reactions: Motion Sickness, Postoperative Nausea & Vomiting (PONV) Past Psychological History: Anxiety, Depression Smoking Status: Never smoker Past Alcohol Use History: Occasional Past Drug Use History: Marijuana Additional Drug Use History / Comment(s): uses marinol and RSO - Past Family History Mother Family Medical History: No Reported History Medications and Allergies Home Medications Medication Instructions Recorded Confirmed Type HYDROmorphone [Dilaudid] 2 mg PO BID PRN 04/05/17 07/09/18 History ALPRAZolam [Xanax] 0.5 mg PO TID PRN 06/24/18 07/09/18 History fentaNYL 25MCG/HR PATCH [Duragesic 25 mcg TRANSDERM Q72H 06/24/18 07/09/18 History 25MCG/HR] traZODone HCL 150 mg PO HS 06/24/18 07/09/18 History Esomeprazole Magnesium [NexIUM] 40 mg PO DAILY 07/09/18 07/09/18 History Famotidine [Pepcid AC] 10 mg PO BID 07/09/18 07/09/18 History Allergies Allergy/AdvReac Type Severity Reaction Status Date / Time hydrocodone [From Wendell] Allergy Nausea & Verified 07/09/18 16:44 Vomiting metoclopramide [From Reglan] Allergy body Verified 07/09/18 16:44 jerks, suicidal thoughts Surgical - Exam Physical exam: General: Well-developed, well-nourished HEENT: Normocephalic, sclerae nonicteric Abdomen: Nontender, nondistended Extremities: No edema Neuro: Alert and oriented Assessment and Plan (1) Esophageal cancer Narrative/Plan: Will proceed with Port-A-Cath placement at this time. Risks of bleeding, infection, DVT, pneumothorax, catheter malfunction, anesthesia related complications were discussed. The patient understands and wishes to proceed. Status: Acute Code(s): C15.9 - MALIGNANT NEOPLASM OF ESOPHAGUS, UNSPECIFIED SNOMED Code(s): 987724219
[~2018-07-11 09:28] MED LIST changes: +HEPARIN SODIUM,PORCINE 5,000 UNIT/ML 1 ML VIAL SQ ONE; -LIDOCAINE 1% 20 ML VIAL (10MG/ML) FOR IV START INTRADERMA PRN; +MORPHINE SULFATE 2 MG/ML SYRINGE IV PRN; +Pre Op ABX Message 1 EACH MISC MISCELLANE ONE
[2018-07-11 09:59] VITALS: TEMP 98.4
[2018-07-11] MEDS ORDERED: LIDOCAINE 1% 20 ML VIAL (10MG/ML) FOR IV START INTRADERMA ONE (10:30)
[2018-07-11] MEDS ORDERED: MIDAZOLAM 2 MG/2 ML VIAL IVP ONE (10:43)
[2018-07-11] MEDS ORDERED: ONDANSETRON 4 MG/2 ML VIAL IVP ONE (10:45)
[2018-07-11] MEDS ORDERED: SUCCINYLCHOLINE CHLORIDE 100 MG/5 ML SYR IV ONE (11:23)
[2018-07-11] MEDS ORDERED: LIDOCAINE 1% INJ 10MG/ML (20 ML MDV) ONE (11:23)
[2018-07-11] MEDS ORDERED: MIDAZOLAM 2 MG/2 ML VIAL ONE (11:23)
[2018-07-11] MEDS ORDERED: fentaNYL (PF) 50 MCG/ML 2 ML AMP ONE (11:23)
[2018-07-11] MEDS ORDERED: PROPOFOL 10 MG/ML 20 ML VIAL IV ONE (11:23)
[2018-07-11] MEDS ORDERED: LIDOCAINE 1% INJ 10MG/ML (20 ML MDV) SQ ONE (11:57)
[2018-07-11] MEDS ORDERED: HYDROcodone/APAP 5-325MG 1 EACH TAB PO PRN (12:32)
[2018-07-11] MEDS ORDERED: NALOXONE 0.4 MG/ML 1 ML VIAL IV PRN (12:32)
--- NOTE | 2018-07-11 12:33 | P.OP ---
Date of Procedure: 07/11/18 Procedure(s) Performed: PREOPERATIVE DIAGNOSIS: Esophageal cancer POSTOPERATIVE DIAGNOSIS: Same PROCEDURE: Port-A-Cath placement SURGEON: Randy EBL: Minimal ANESTHESIA: Sedation COMPLICATIONS: None OPERATIVE PROCEDURE: Patient was brought and placed on the operative table in the supine position. The patient was sedated per anesthesia that time. The chest and neck were prepped and draped in usual sterile fashion. The ultrasound probe was used to identify the location of the right internal jugular vein. The skin was localized with lidocaine. The Seldinger needle was advanced into the IJ under ultrasound guidance. The wire was advanced through the needle under fluoroscopic guidance into the superior vena cava. A port pocket was created in the right infraclavicular location. The catheter was tunneled from the wire entrance site to the port pocket. The port was then connected to the catheter. The dilator introducer was threaded over the guidewire. The guidewire and dilator were then removed. The catheter was advanced through the introducer and introducer was then removed. The tip was seen to be in the right atrial junction. Port was flushed with both saline and a Hep-Lock solution. There was good flow both in and out of the port. The port was sutured in underlying tissues using 3-0 silk sutures. The subcutaneous tissues were reapproximated using 3-0 Vicryl sutures and the skin at both locations using 4-0 Monocryl sutures. Skin glue was then then applied. DISPOSITION: Stable to recovery room
--- NOTE | 2018-07-11 12:41 | FL ---
EXAMINATION TYPE: FL guided central line placemt DATE OF EXAM: 07/11/2018 CLINICAL HISTORY: Esophageal cancer TECHNIQUE: Fluoroscopy. COMPARISON: None. FINDINGS: Fluoroscopic guidance was provided during Mediport catheter insertion procedure performed by Dr. Padilla. A total of 1 secs. Of fluoroscopic time was utilized during the procedure and single s pot fluoroscopic image is acquired. Single image acquired shows tip of catheter near cavoatrial junct ion. IMPRESSION: As Above.
--- NOTE | 2018-07-11 12:55 | XR ---
EXAMINATION TYPE: XR chest 1V confirm line [facility] DATE OF EXAM: 07/11/2018 COMPARISON: Chest x-ray June 27, 2017. CT chest April 28, 2018 HISTORY: Esophageal cancer status post Mediport placement TECHNIQUE: Single frontal view of the chest is obtained. FINDINGS: There is new right internal jugular Mediport catheter with tip terminating at cavoatrial ju nction. There is no focal air space opacity, pleural effusion, or pneumothorax seen. There is left i nfrahilar linear scarring redemonstrated The cardiac silhouette size is stable and upper limits of no rmal. Surgical clip right hilar region from esophagectomy and gastric pull-up is redemonstrated. The osseous structures are intact. IMPRESSION: New right internal jugular Mediport catheter terminating at cavoatrial junction. No siza ble pneumothorax.
[2018-07-11 13:10] VITALS: RESP 16
[2018-07-11 13:36] VITALS: BP 118/87; PULSE 99
== END 2018-07-11 14:03 | disposition home or self-care (01) ==
LOC: OR 09:28
PROVIDERS: ATTEND Surgery
DX: C15.9 Malignant neoplasm of esophagus, unspecified (principal); C79.51 Secondary malignant neoplasm of bone; Z85.028 Personal history of other malignant neoplasm of stomach; Z92.21 Personal history of antineoplastic chemotherapy; Z92.3 Personal history of irradiation; Z90.49 Acquired absence of other specified parts of digestive tract; Z90.3 Acquired absence of stomach [part of]; K21.9 Gastro-esophageal reflux disease without esophagitis; J45.909 Unspecified asthma, uncomplicated; F41.9 Anxiety disorder, unspecified; F32.9 Major depressive disorder, single episode, unspecified; Z79.899 Other long term (current) drug therapy; Z88.5 Allergy status to narcotic agent; Z88.8 Allergy status to other drugs, medicaments and biological substances
CPT/HCPCS: 77001; 36561; C1788; J2250; J1644; J2405; J2001; J3010; J1642; J0330; J2704

== ENCOUNTER → 2018-09-25 | Outpatient (CLI) | payer OTHER ==
--- NOTE | 2018-09-25 09:51 | MR ---
EXAMINATION TYPE: MR brain wo/w con DATE OF EXAM: 09/25/2018 COMPARISON: Prior brain MRI 06/27/2018 HISTORY: Nausea with vomiting / Esophageal Ca TECHNIQUE: Multiplanar, multisequence images of the brain and brainstem is performed without and with IV contras t, utilizing 7 mL intravenous Gadavist . FINDINGS: Diffusion weighted images demonstrate no evidence of a recent infarct or other diffusion ab normality. There is no extra-axial fluid collection or significant white matter signal abnormality. The ventricular system and cisternal spaces are normal in size and appearance. The brain volume is age appropriate. Midline structures demonstrate normal morphology. The craniocervical junction appears within normal limits. Post contrast images demonstrate no abnormal enhancement. The dural venous sinuses appear pa tent. The visualized sinuses are remarkable for inflammatory change in the maxillary sinuses, possibl e mucus retention cyst on the left, mucosal thickening in the ethmoid air cells and frontal sinuses a lso show inflammatory change similar to prior, and the globes are intact. IMPRESSION: Sinus disease. Stable unremarkable brain MRI
== END | disposition home or self-care (01) ==
LOC: RADMRIMAIN 08:41
PROVIDERS: ATTEND Internal Medicine Hematology & Oncology
DX: R11.2 Nausea with vomiting, unspecified (principal); C15.9 Malignant neoplasm of esophagus, unspecified
CPT/HCPCS: 70553; A9585

== ENCOUNTER → 2018-10-22 | Outpatient (CLI) | payer OTHER ==
[2018-10-22 14:36] LABS: Blood Urea Nitrogen 11 mg/dL (9-20)
--- NOTE | 2018-10-23 07:10 | CT ---
EXAMINATION TYPE: CT ChestAbdPelvis w con DATE OF EXAM: 10/22/2018 COMPARISON: Most recent PET/CT June 28, 2018 and older PETs. Most recent CT abdomen and pelvis No 2017. Most recent chest CT April 28, 2018. Older CTs. HISTORY: Esophageal cancer diagnosed July 2016 currently undergoing chemotherapy per patient. CT DLP: 765.7 mGycm. Automated Exposure Control for Dose Reduction was Utilized. CONTRAST: CT scan of the thorax, abdomen and pelvis is performed with oral and with IV Contrast, patient inject ed with 100 mL of Isovue M300. FINDINGS: LUNGS: Scattered throughout the lung there is redemonstration of multifocal areas of groundglass opac ity bilaterally with some progression from most recent PET/CT. These areas are new from the most rece nt chest CT April 28, 2018. No pleural effusion or pneumothorax is identified. No suspicious nodu les or masses are seen. MEDIASTINUM: There are no greater than 1 cm hilar or mediastinal lymph nodes. No cardiomegaly or p ericardial effusion is seen. There is redemonstration of surgical changes from total esophagectomy a nd gastric pull-up procedure with contrast pooling in the thoracic stomach which appears dilated with air debris level near thoracic inlet shows even more prominent most recent PET/CT. Debris appears ab ove the sutures. OTHER: There is new right-sided internal jugular Mediport catheter terminating near cavoatrial juncti on. LIVER/GB: No significant abnormality is appreciated. PANCREAS: No significant abnormality is seen. SPLEEN: No significant abnormality is seen. ADRENALS: No significant abnormality is seen. KIDNEYS: There is symmetric cortical medullary uptake and excretion from both kidneys on current stud y without hydronephrosis. BOWEL: The oral contrast only reaches level of mid jejunal loops in the left mid to lower abdomen. Th ere is some linear density redemonstrated near diaphragmatic hiatus for reference axial image 56. The re is transition near diaphragmatic hiatus to compressed antrum and first portion of duodenal sweep. Second through fourth portion of duodenal sweep show contrast opacification without narrowing or dila tation. Remainder of small and large bowel show no suspicious dilatation. GENITAL ORGANS: No gross abnormality seen. LYMPH NODES: No greater than 1cm abdominal or pelvic lymph nodes are appreciated. OSSEOUS STRUCTURES: Vague sclerotic focus L3 vertebra coronal image 60 for reference corresponding to axial image 79 is felt more prominent from most recent CT and new from November 20, 2016 CT and is PET positive. OTHER: No significant additional abnormality is seen. IMPRESSION: 1. Continued progression of multifocal groundglass opacities in bilateral lungs is suspicious for mul tifocal edema and/or infiltrates. Correlate clinically. Perhaps reflects abnormal response or reacti on to chemotherapy. 2. Continued dilatation of intrathoracic gastric pull-up after esophagectomy with debris in the most proximal portion near thoracic inlet, stenosis near diaphragmatic hiatus needs to BE considered. Adrienne elate clinically. 3. Osseous metastatic disease suspected as there is increasing sclerotic focus L3 vertebra that in re trospect is PET positive.
== END | disposition home or self-care (01) ==
LOC: RADPROMAIN 14:14
PROVIDERS: ATTEND Internal Medicine Hematology & Oncology
DX: J98.4 Other disorders of lung (principal); K31.89 Other diseases of stomach and duodenum; C15.9 Malignant neoplasm of esophagus, unspecified; Z90.49 Acquired absence of other specified parts of digestive tract
CPT/HCPCS: 82565; 84520; 71260; 74177; J1642; Q9967

== ENCOUNTER 2018-12-24 08:18 | Inpatient (IN) | payer OTHER ==
--- NOTE | 2018-12-24 09:05 | XR ---
EXAMINATION TYPE: XR chest 2V DATE OF EXAM: 12/24/2018 COMPARISON: 07/11/2018 HISTORY: Hypoxemia TECHNIQUE: Frontal and lateral views of the chest are obtained. FINDINGS: New multifocal airspace disease is seen within the right lung base, right infrahilar regio n, and perihilar regions. Small hiatal hernia suspected. Right-sided Mediport terminates in the right atrium. No sizable pneumothorax. Trace pleural effusions blunt the costophrenic angles. Minimal dege nerative changes of the thoracic spine are seen. IMPRESSION: New multifocal airspace disease concerning for multifocal pneumonia versus less likely c onfluent pulmonary edema.
[2018-12-24] MEDS ORDERED: ONDANSETRON 4 MG/2 ML VIAL IVP PRN (09:58)
[2018-12-24] MEDS ORDERED: VANCOMYCIN IV PER PHARMACY 1 EACH MISC MISCELLANE PRN (10:00)
[2018-12-24] MEDS: ACETAMINOPHEN TAB 325 MG TAB PO PRN (10:11)
[2018-12-24] MEDS: DEXTROSE 5%-0.45% NACL 1,000 ML IV SCH ×2 (10:12→16:09)
[2018-12-24 10:13] LABS: Anisocytosis Slight; Basophils % (A) 0 %; Eosinophils # (A) 0.1 k/uL (0-0.7); Eosinophils % (A) 0 %; HCT 32.4 % (39.0-53.0); HGB 10.4 gm/dL (13.0-17.5); Hypochromasia Slight; Lymphocytes # (A) 0.5 k/uL (1.0-4.8); Lymphocytes % (A) 4 %; MCH 30.1 pg (25.0-35.0); MCHC 32.2 g/dL (31.0-37.0); MCV 93.5 fL (80.0-100.0); Mean Platelet Volume 7.7; Monocytes # (A) 0.5 k/uL (0-1.0); Monocytes % (A) 3 %; Neutrophils # (A) 13.4 k/uL (1.3-7.7); Neutrophils % (A) 92 %; Platelet Count 169 k/uL (150-450); Poikilocytosis Slight; RBC 3.46 m/uL (4.30-5.90); RDW 18.1 % (11.5-15.5); WBC 14.6 k/uL (3.8-10.6)
[2018-12-24] MEDS ORDERED: VANCOMYCIN 1,250 MG in SODIUM CHLORIDE 0.9% 250 ML IVPB ONE ×2 (10:30→12:30)
[2018-12-24 10:36] LABS: ALT 25 U/L (21-72); AST 38 U/L (17-59); African American GFR (CKD) >90 (>60 ml/min/1.73 sqM); Albumin 3.4 g/dL (3.5-5.0); Alkaline Phosphatase 130 U/L (38-126); Anion Gap 6 mmol/L; Blood Urea Nitrogen 9 mg/dL (9-20); Calcium 8.3 mg/dL (8.4-10.2); Carbon Dioxide 28 mmol/L (22-30); Chloride 99 mmol/L (98-107); Glucose 117 mg/dL (74-99); Magnesium 2.1 mg/dL (1.6-2.3); Potassium 4.4 mmol/L (3.5-5.1); Sodium 133 mmol/L (137-145); Total Protein 6.1 g/dL (6.3-8.2)
[2018-12-24 10:39] LABS: Partial Thromboplastin Time 25.3 sec (22.0-30.0); Prothrombin Time 10.7 sec (9.0-12.0)
[2018-12-24] MEDS: CEFEPIME 2 GM in SODIUM CHLORIDE 0.9% 100 ML IVPB SCH ×2 (11:38→16:08)
[2018-12-24 12:44] LABS: Appearance,Urine Clear (Clear); Bilirubin,Urine Negative (Negative); Blood,Urine Negative (Negative); Color,Urine Yellow; Glucose,Urine (UA) Negative (Negative); Ketones,Urine Negative (Negative); Leukocyte Esterase,Urine Negative (Negative); Nitrite,Urine Negative (Negative); Protein,Urine Trace (Negative); Specific Gravity,Urine 1.008 (1.001-1.035)
[2018-12-24] MEDS ORDERED: IPRATROPIUM-ALBUTEROL 3 ML NEB INHALATION PRN (13:37)
--- NOTE | 2018-12-24 13:49 | P.HPIM ---
History of Present Illness H&P Date: 12/24/18 Chief Complaint: Fever on Chemotherapy Robe is a 48 year old patient of Dr. Lockwood who recently showed recurrent esophageal cancer. He presented to office this am for follow-up and was found febrile and hypoxic and sent to [facility] for further evaluation and management. Review of Systems A 14 point review of systems was assessed and completed and are all negative except for HPI Past Medical History Past Medical History: Asthma, Cancer, GERD/Reflux Additional Past Medical History / Comment(s): EXCERCISE INDUCED ASTHMA (no current meds), ESOPHAGEAL & STOMACH CANCER (DIAGNOSED 07/2016, RECEIVED CHEMO & RADIATION - SEP TO OCTOBER 2016)., STOMACH PAIN. , PTS STATES NEW DIAGNOSIS OF STOMACH CANCER AND CANCER IN THE SPINE., SPITS UP SALIVA. History of Any Multi-Drug Resistant Organisms: None Reported Additional Past Surgical History / Comment(s): MULT SX FOR CLEFT LIP, LASIK , BONE GRAFT TAKEN FROM HIP TO HIS JAW (14YRS OLD), 1/4 OF STOMACH REMOVED AND ESOPHAGUS SURGERY FOR CANCER-(DECEMBER 2016 [facility]), EGD (06/27/18) Past Anesthesia/Blood Transfusion Reactions: Motion Sickness, Postoperative Nausea & Vomiting (PONV) Past Psychological History: Anxiety, Depression Smoking Status: Never smoker Past Alcohol Use History: Occasional Past Drug Use History: Marijuana Additional Drug Use History / Comment(s): uses marinol and RSO - Past Family History Mother Family Medical History: No Reported History Medications and Allergies Home Medications Medication Instructions Recorded Confirmed Type traZODone HCL 150 mg PO HS 06/24/18 12/24/18 History Famotidine [Pepcid AC] 10 mg PO BID 07/09/18 12/24/18 History Esomeprazole Magnesium [NexIUM] 40 mg PO BID 12/24/18 12/24/18 History HYDROmorphone [Dilaudid] 2 mg PO TID 12/24/18 12/24/18 History LORazepam [Ativan] 0.5 mg PO TID 12/24/18 12/24/18 History Ondansetron Odt [Zofran ODT] 4 mg SL Q6HR 12/24/18 12/24/18 History Prochlorperazine [Compazine] 10 mg PO Q6H 12/24/18 12/24/18 History fentaNYL 75MCG/HR PATCH [Duragesic 75 mcg PO Q72H 12/24/18 12/24/18 History 75MCG/HR] Allergies Allergy/AdvReac Type Severity Reaction Status Date / Time hydrocodone [From [place]] Allergy Nausea & Verified 12/24/18 10:23 Vomiting metoclopramide [From [place]lan] Allergy body Verified 12/24/18 10:23 jerks, suicidal thoughts Physical Exam Vitals: Vital Signs Temp Pulse Resp BP Pulse Ox 12/24/18 12:43 100.4 F H 12/24/18 11:07 102.2 F H 12/24/18 09:13 103.1 F H 78 18 93/54 98 Intake and Output 12/23/18 12/24/18 12/24/18 22:59 06:59 14:59 Other: Voiding Method Urinal Weight 71.817 kg General: Alert and Oriented x3, No Acute Distress Head: Normocytic, Atraumatic Neck: Supple Mouth: No Lesions, No Thrush Eyes: Non-sclerotic No Palpable cervical, supraclavicular, axillary adenopathy Heart: Tachy Lungs: Clear to Ausculations, increased respiratory effort noted Abdomen: Soft, Non-Distended, Non-Tended, BSx4 Extremities: No Edema, Equal Strength Neurological: No Focal Defects: No sensory or motor deficits noted Psych: Calm and cooperative Results CBC & Chem 7: 12/25/18 06:37 12/25/18 06:37 Labs: Abnormal Lab Results - Last 24 Hours (Table) 12/24/18 12/24/18 12/24/18 Range/Units 10:00 10:00 11:45 WBC 14.6 H (3.8-10.6) k/uL RBC 3.46 L (4.30-5.90) m/uL Hgb 10.4 L (13.0-17.5) gm/dL Hct 32.4 L (39.0-53.0) % RDW 18.1 H (11.5-15.5) % Neutrophils # 13.4 H (1.3-7.7) k/uL Lymphocytes # 0.5 L (1.0-4.8) k/uL Sodium 133 L (137-145) mmol/L Creatinine 0.65 L (0.66-1.25) mg/dL Glucose 117 H (74-99) mg/dL Calcium 8.3 L (8.4-10.2) mg/dL Alkaline Phosphatase 130 H (38-126) U/L Total Protein 6.1 L (6.3-8.2) g/dL Albumin 3.4 L (3.5-5.0) g/dL Urine Protein Trace H (Negative) Thrombosis Risk Factor Assmnt - DVT/VTE Prophylaxis DVT/VTE Prophylaxis: Pharmacologic Prophylaxis ordered - Choose All That Apply Each Factor Represents 1 point: Age 41-60 years Thrombosis Risk Factor Assessment Total Risk Factor Score: 1 Thrombosis Risk Factor Assessment Level: Low Risk Assessment and Plan Plan: Assessment and Plan: Febrile on Chemotherapy: - Reeves Culture - Infectious Disease Consultation - Broad Spectrum antibiotics, concern for possible aspiration, swallow evaluation - Chest Xray Esophageal Cancer: Recurrent: - Currently on Chemotherapy with primary Oncologist Dr. Lockwood - He was due for chemo yesterday but did not feel well so did not receive - Treatment on hold until acute situation resolves Acute Hypoxic Respiratory Failure: - Component of Aspiration versus pneumonia versus lymphangenic spread - Chest xray ordered - Pulmonary consulted CBC and CMP daily Pain Medication from home reordered with bowel protocol VTE prophylaxis
[2018-12-24] MEDS: LORazepam 0.5 MG TAB PO SCH ×2 (16:07→22:03)
[2018-12-24] MEDS: PANTOPRAZOLE 40 MG TABLET PO SCH (16:07)
[2018-12-24] MEDS: HEPARIN SODIUM,PORCINE 5,000 UNIT/ML 1 ML VIAL SQ SCH (16:08)
[2018-12-24] MEDS: IPRATROPIUM-ALBUTEROL 3 ML NEB INHALATION SCH ×2 (16:45→19:15)
[2018-12-24] MEDS ORDERED: FUROSEMIDE 10 MG/ML 4 ML VIAL IV STA (19:22)
[2018-12-24] MEDS ORDERED: traZODone HCL 100 MG TAB PO SCH (21:00)
[2018-12-24] MEDS: FAMOTIDINE 20 MG TAB PO SCH (22:03)
[2018-12-24] MEDS: VANCOMYCIN 1,250 MG in SODIUM CHLORIDE 0.9% 250 ML IVPB SCH (22:03)
--- NOTE | 2018-12-24 22:59 | P.CONS ---
History of Present Illness - Reason for Consult Consult date: 12/24/18 - Chief Complaint Increasing weakness - History of Present Illness 48-year-old male who is known history of esophageal cancer status post the gastric pull-through procedure. Has completed his original course of chemotherapy and radiation therapy. Was having increasing difficulties and recent biopsies continue to show evidence of adenocarcinoma. He is receiving further courses of chemotherapy at this time. He however now presents to hospital with fever of 103 with chills and rigors and feeling poorly. He has minimal pulmonary symptoms with some cough without much sputum production and no hemoptysis. He relates since coming to Hospital his fever and chills are starting to improve. Does feel quite poorly overall. Review of Systems Has noted fever and chill HEENT:Denies headache or acute visual change. Denies sinus or mouth discomforts. Denies neck stiffness or pain. Denies significant oral cavity pain. Denies difficulty on swallowing. Lungs: Denies significant shortness of breath, cough, sputum production, or hemoptysis. Cardiovascular: Denies significant shortness of breath, chest pain, chest wall pain, orthopnea, dyspnea on exertion, syncope Gastrointestinal:Denies diarrhea, constipation, hematemesis, melena, hematochezia. No no significant change of bowel habit noticed. Did have a PEG tube for feedings at first. Is now on a regular diet. He does sleep with his head elevated and does not recall awakening with evidence of reflux. Did have emesis on a couple of occasions just within the last 24 hours. Musculoskeletal: denies significant myalgias or arthralgias. No new joint swelling. Denies new back pain. Skin: Denies new rash or lesions. No new ulcers or wounds are related.. Neuro: Denies headache or visual change. Denies any new onset weakness or difficulty with ambulation. Denies falls or seizures. Psychiatric:Denies anxiety or depression. Endocrine: 80 pound weight loss to date has fatigue Past Medical History Past Medical History: Asthma, Cancer, GERD/Reflux Additional Past Medical History / Comment(s): EXCERCISE INDUCED ASTHMA (no current meds), ESOPHAGEAL & STOMACH CANCER (DIAGNOSED 07/2016, RECEIVED CHEMO & RADIATION - SEP TO OCTOBER 2016)., STOMACH PAIN. , PTS STATES NEW DIAGNOSIS OF STOMACH CANCER AND CANCER IN THE SPINE., SPITS UP SALIVA. History of Any Multi-Drug Resistant Organisms: None Reported Additional Past Surgical History / Comment(s): MULT SX FOR CLEFT LIP, LASIK , BONE GRAFT TAKEN FROM HIP TO HIS JAW (14YRS OLD), 1/4 OF STOMACH REMOVED AND ESOPHAGUS SURGERY FOR CANCER-(DECEMBER 2016 [facility]), EGD (06/27/18) Past Anesthesia/Blood Transfusion Reactions: Motion Sickness, Postoperative Nausea & Vomiting (PONV) Past Psychological History: Anxiety, Depression Additional Psychological History / Comment(s): 48-year-old male. . Lives with his and they have 5 children. Is not a tobacco smoker. Medically disabled. Used to work as a channel sales director. No experience. Multiple tattoos Smoking Status: Never smoker Past Alcohol Use History: Occasional Past Drug Use History: Marijuana Additional Drug Use History / Comment(s): uses marinol and RSO - Past Family History Mother Family Medical History: No Reported History Medications and Allergies Home Medications and Allergies Comment(s): Current Medications Acetaminophen (Tylenol Tab) 650 mg PO Q6HR PRN PRN Reason: Fever and/ or Pain Last Admin: 12/24/18 10:11 Dose: 650 mg Documented by: Albuterol/Ipratropium (Duoneb 0.5 Mg-3 Mg/3 Ml Soln) 3 ml INHALATION RT-QID PRN PRN Reason: Shortness Of Breath Or Wheezing Albuterol/Ipratropium (Duoneb 0.5 Mg-3 Mg/3 Ml Soln) 3 ml INHALATION RT-QID [facility] Last Admin: 12/24/18 19:15 Dose: 3 ml Documented by: Famotidine (Pepcid) 10 mg PO BID [facility] Last Admin: 12/24/18 22:03 Dose: 10 mg Documented by: Fentanyl (Duragesic 75mcg/Hr Patch) 1 patch TRANSDERM Q72H [facility] Last Admin: 12/24/18 14:44 Dose: 1 patch Documented by: Heparin Sodium (Porcine) (Heparin) 5,000 unit SQ Q8HR [facility] Last Admin: 12/24/18 16:08 Dose: 5,000 unit Documented by: Dextrose/Sodium Chloride (Dextrose 5%-1/2ns Iv Soln) 1,000 mls @ 150 mls/hr IV .Q6H40M [facility] Last Admin: 12/24/18 16:09 Dose: 150 mls/hr Documented by: Cefepime HCl 2 gm/ Sodium (Chloride) 100 mls @ 200 mls/hr IVPB Q8HR [facility] Last Admin: 12/24/18 16:08 Dose: 200 mls/hr Documented by: Vancomycin HCl 1,250 mg/ (Sodium Chloride) 250 mls @ 125 mls/hr IVPB Q8H [facility] Last Admin: 12/24/18 22:03 Dose: 125 mls/hr Documented by: Lorazepam (Ativan) 0.5 mg PO TID [facility] Last Admin: 12/24/18 22:03 Dose: 0.5 mg Documented by: Ondansetron HCl (Zofran) 4 mg IVP Q6HR PRN PRN Reason: Nausea And Vomiting Last Admin: 12/24/18 10:11 Dose: 4 mg Documented by: Pantoprazole Sodium (Protonix) 40 mg PO AC-BID [facility] Last Admin: 12/24/18 16:07 Dose: 40 mg Documented by: Senna/Docusate Sodium (Senokot-S) 1 each PO BID [facility] Trazodone HCl (Desyrel) 150 mg PO [facility] Last Admin: 12/24/18 22:02 Dose: 150 mg Documented by: Home Medications Medication Instructions Recorded Confirmed Type traZODone HCL 150 mg PO 06/24/18 12/24/18 History Famotidine [Pepcid AC] 10 mg PO BID 07/09/18 12/24/18 History Esomeprazole Magnesium [NexIUM] 40 mg PO BID 12/24/18 12/24/18 History HYDROmorphone [Dilaudid] 2 mg PO TID 12/24/18 12/24/18 History LORazepam [Ativan] 0.5 mg PO TID 12/24/18 12/24/18 History Ondansetron Odt [Zofran ODT] 4 mg SL Q6HR 12/24/18 12/24/18 History Prochlorperazine [Compazine] 10 mg PO Q6H 12/24/18 12/24/18 History fentaNYL 75MCG/HR PATCH [Duragesic 75 mcg PO Q72H 12/24/18 12/24/18 History 75MCG/HR] Allergies Allergy/AdvReac Type Severity Reaction Status Date / Time hydrocodone [From [place]] Allergy Nausea & Verified 12/24/18 10:23 Vomiting metoclopramide [From Reglan] Allergy body Verified 12/24/18 10:23 jerks, suicidal thoughts Physical Exam Vitals: Vital Signs Temp Pulse Pulse Resp BP Pulse Ox 12/24/18 19:35 132 H 26 H 12/24/18 19:25 125 H 30 H 12/24/18 18:49 98.3 F 122 H 20 118/77 87 L 12/24/18 16:58 80 12/24/18 16:52 93 L 12/24/18 16:45 82 12/24/18 14:20 98.1 F 89 92/55 91 L 12/24/18 12:43 100.4 F H 12/24/18 11:07 102.2 F H 12/24/18 09:13 103.1 F H 78 18 93/54 98 Intake and Output 12/24/18 12/24/18 12/24/18 06:59 14:59 22:59 Output Total 1050 Balance -1050 Output: Urine 1050 Other: Voiding Method Urinal Weight 71.817 kg 48-year-old male feeling slightly better since admission since fever is starting to improve HEENT: Anicteric conjunctiva are pink and moist nasal mucosa grossly intact without significant lesions, there is no thrush. Neck: The neck is supple without significant lymphadenopathy or thyromegaly. Lungs: Symmetrical air entry is noted few basilar crackles few expiratory wheezes no bronchial sounds. Heart: Regular rate and rhythm with an audible S1-S2, no S3 no S4. There is no significant murmur click or rub, PMI was nondisplaced. Abdomen: Positive bowel sounds soft and nontender without palpable masses or organomegaly. There was no guarding or rebound. Prior PEG tube site is well- healed Extremities: The upper extremities have excellent pulses they are symmetric, no significant petechiae or telangiectasia. No splinter hemorrhages were noted. The lower extremities are free from significant edema. The peripheral pulses were 2+ and symmetric. Evidence of muscular wasting Neuro: Awake alert oriented to person place and time. There are no acute new gross focal sensory motor deficits. Results CBC & Chem 7: 12/24/18 10:00 12/24/18 10:00 Labs: Abnormal Lab Results - Last 24 Hours (Table) 12/24/18 12/24/18 12/24/18 Range/Units 10:00 10:00 11:45 WBC 14.6 H (3.8-10.6) k/uL RBC 3.46 L (4.30-5.90) m/uL Hgb 10.4 L (13.0-17.5) gm/dL Hct 32.4 L (39.0-53.0) % RDW 18.1 H (11.5-15.5) % Neutrophils # 13.4 H (1.3-7.7) k/uL Lymphocytes # 0.5 L (1.0-4.8) k/uL Sodium 133 L (137-145) mmol/L Creatinine 0.65 L (0.66-1.25) mg/dL Glucose 117 H (74-99) mg/dL Calcium 8.3 L (8.4-10.2) mg/dL Alkaline Phosphatase 130 H (38-126) U/L Total Protein 6.1 L (6.3-8.2) g/dL Albumin 3.4 L (3.5-5.0) g/dL Urine Protein Trace H (Negative) Laboratory Results WBC 14.6 k/uL (3.8-10.6) H 12/24/18 10:00 RBC 3.46 m/uL (4.30-5.90) L 12/24/18 10:00 Hgb 10.4 gm/dL (13.0-17.5) L 12/24/18 10:00 Hct 32.4 % (39.0-53.0) L 12/24/18 10:00 MCV 93.5 fL (80.0-100.0) 12/24/18 10:00 MCH 30.1 pg (25.0-35.0) 12/24/18 10:00 MCHC 32.2 g/dL (31.0-37.0) 12/24/18 10:00 RDW 18.1 % (11.5-15.5) H 12/24/18 10:00 Plt Count 169 k/uL (150-450) 12/24/18 10:00 Neutrophils % 92 % 12/24/18 10:00 Lymphocytes % 4 % 12/24/18 10:00 Monocytes % 3 % 12/24/18 10:00 Eosinophils % 0 % 12/24/18 10:00 Basophils % 0 % 12/24/18 10:00 Neutrophils # 13.4 k/uL (1.3-7.7) H 12/24/18 10:00 Lymphocytes # 0.5 k/uL (1.0-4.8) L 12/24/18 10:00 Monocytes # 0.5 k/uL (0-1.0) 12/24/18 10:00 Eosinophils # 0.1 k/uL (0-0.7) 12/24/18 10:00 Basophils # 0.0 k/uL (0-0.2) 12/24/18 10:00 Hypochromasia Slight 12/24/18 10:00 Poikilocytosis Slight 12/24/18 10:00 Anisocytosis Slight 12/24/18 10:00 PT 10.7 sec (9.0-12.0) 12/24/18 10:00 INR 1.0 (<1.2) 12/24/18 10:00 APTT 25.3 sec (22.0-30.0) 12/24/18 10:00 Sodium 133 mmol/L (137-145) L 12/24/18 10:00 Potassium 4.4 mmol/L (3.5-5.1) 12/24/18 10:00 Chloride 99 mmol/L (98-107) 12/24/18 10:00 Carbon Dioxide 28 mmol/L (22-30) 12/24/18 10:00 Anion Gap 6 mmol/L 12/24/18 10:00 BUN 9 mg/dL (9-20) 12/24/18 10:00 Creatinine 0.65 mg/dL (0.66-1.25) L 12/24/18 10:00 Est GFR (CKD-EPI)AfAm >90 (>60 ml/min/1.73 sqM) 12/24/18 10:00 Est GFR (CKD-EPI)NonAf >90 (>60 ml/min/1.73 sqM) 12/24/18 10:00 Glucose 117 mg/dL (74-99) H 12/24/18 10:00 Calcium 8.3 mg/dL (8.4-10.2) L 12/24/18 10:00 Magnesium 2.1 mg/dL (1.6-2.3) 12/24/18 10:00 Total Bilirubin 1.0 mg/dL (0.2-1.3) 12/24/18 10:00 AST 38 U/L (17-59) 12/24/18 10:00 ALT 25 U/L (21-72) 12/24/18 10:00 Alkaline Phosphatase 130 U/L (38-126) H 12/24/18 10:00 Total Protein 6.1 g/dL (6.3-8.2) L 12/24/18 10:00 Albumin 3.4 g/dL (3.5-5.0) L 12/24/18 10:00 Urine Color Yellow 12/24/18 11:45 Urine Appearance Clear (Clear) 12/24/18 11:45 Urine pH 7.0 (5.0-8.0) 12/24/18 11:45 Ur Specific [place] 1.008 (1.001-1.035) 12/24/18 11:45 Urine Protein Trace (Negative) H 12/24/18 11:45 Urine Glucose (UA) Negative (Negative) 12/24/18 11:45 Urine Ketones Negative (Negative) 12/24/18 11:45 Urine Blood Negative (Negative) 12/24/18 11:45 Urine Nitrite Negative (Negative) 12/24/18 11:45 Urine Bilirubin Negative (Negative) 12/24/18 11:45 Urine Urobilinogen 2.0 mg/dL (<2.0) 12/24/18 11:45 Ur Leukocyte Esterase Negative (Negative) 12/24/18 11:45 Influenza Type A RNA Not Detected (Not Detectd) 12/24/18 10:15 Influenza Type B (PCR) Not Detected (Not Detectd) 12/24/18 10:15 Assessment and Plan (1) Esophageal cancer Current Visit: No Status: Acute Code(s): C15.9 - MALIGNANT NEOPLASM OF ESOPHAGUS, UNSPECIFIED SNOMED Code(s): 272191806 (2) Fever Narrative/Plan: 48 -year-old male presents to Hospital feeling poorly with onset of increasing fever malaise and chills. The patient has a known history of esophageal cancer, status post gastric pull-through who has already received his original course of chemotherapy and radiation. But is now receiving further chemotherapy with evidence of ongoing adenocarcinoma. The patient is starting to feel somewhat better since admission and initiation of fluids and antibiotic therapy. The patient has had imaging studies including the computed tomography scan that is revealing some ongoing difficulties with pulmonary infiltrates. Patient is currently receiving cefepime and vancomycin and tolerating that well. We'll need to have further cultures to help further define his antibiotic therapy. He however is not neutropenic at this time. Would like to have the speech pathologist to evaluate the possibility of silent aspiration or reflux that could be causing the current pulmonary changes by computed tomography scan. Leukocytosis appears to be in the bases of the current infectious process. Current Visit: Yes Status: Acute Code(s): R50.9 - FEVER, UNSPECIFIED SNOMED Code(s): 872884591 (3) Pulmonary infiltrates Current Visit: Yes Status: Acute Code(s): R91.8 - OTHER NONSPECIFIC ABNORMAL FINDING OF LUNG FIELD SNOMED Code(s): 931956053
--- NOTE | 2018-12-24 23:56 | CONS ---
CONSULTATION DATE OF SERVICE: 12/24/2018 This is a pulmonary/critical care consultation for possible aspiration pneumonia. DATE: 12/24/2018 This is a patient was sent over to the hospital by Dr. Lockwood from the [facility]. He apparently was there to possibly have chemotherapy with but was too sick to receive chemotherapy. According to his or significant other, the patient has been having nausea and vomiting for the last 3 or 4 days and then possibly thought to have aspirated. The patient also develops profound shortness of breath. For that reason, the patient was sent to the hospital for admission. Chest x-ray reveals diffuse bilateral infiltrates and the thought was that he may have developed aspiration pneumonia. The patient states that the shortness of breath developed shortly after he started having nausea and vomiting about 3 or 4 days ago. He is coughing a bit. Not producing much phlegm. There has been some fever. He has also had some chills. Temperature up to about [address] Lockwood admitted the patient with orders. He started the patient on meropenem and vancomycin. I added some updrafts. I told the patient that he might have aspiration pneumonia. Another option would be fluid overload state or the possibility of a lymphangitic carcinomatosis throughout his lungs. Another option coarse to be chemotherapy induced lung injury. Nonetheless, the patient is feeling better. He is on oxygen therapy, receiving some IV fluids and some antibiotics. He is not currently nauseated. He states his shortness of breath is much improved. PAST MEDICAL HISTORY: Includes chronic bronchial asthma, gastroesophageal reflux disease and esophageal cancer. The patient apparently was diagnosed in late 2015, underwent surgery after some radiation therapy. The surgery was done by Dr. Poncho Infante at [facility]. He had an esophagectomy and gastric pull-through surgery. He has received chemo and radiation. More recently, the cancer is returned in the spine at L3 and also on the stomach. The patient apparently chronically does aspirate. SURGICAL HISTORY: Includes a multiple surgeries for cleft lip, Lasik eye surgery, bone graft taken from his hip at the area to his jaw when he was young and the major esophagectomy with gastric pull-through surgery. He also has had an EGD. He suffers from anxiety and depression as well. SOCIAL HISTORY: Negative for tobacco use. Denies alcohol. Denies significant alcohol. He does use marijuana. He also uses Marinol for appetite enhancement. Family history is not documented. . HOME MEDICATIONS: Apparently include trazodone, famotidine, Nexium, Dilaudid, Ativan. Zofran, Compazine, a fentanyl patch. ALLERGIES: Are REGLAN AND NOR[place]. REVIEW OF SYSTEMS: CONSTITUTIONAL: Weakness. NEUROLOGIC: Negative. HEENT negative. CARDIOVASCULAR: Negative. PULMONARY: Shortness of breath and possible aspiration. GASTROINTESTINAL: Chronic aspiration. negative. RHEUMATOLOGIC negative. IMMUNOLOGIC negative. ENDOCRINOLOGIC: Negative. DERMATOLOGIC negative. PHYSICAL EXAMINATION: VITAL SIGNS: Current vital signs are reviewed. Temperature is 100.4, T-max 103.1, heart rate 78, respiratory rate 18, blood pressure 93/54, mean 67 and room air saturation 98%. On 2 L he is 100%. GENERAL: Appears in no acute distress. HEENT examination is grossly unremarkable. Mucous membranes are dry. Nasal O2 was noted. NECK: Supple. Full range of motion. CARDIOVASCULAR EXAMINATION: Reveals regular rhythm and rate. S1, S2 normal. No S3 or S4 murmur. Heart rate 78. LUNGS: Diffuse coarse rhonchi. No wheezes. A few scattered crackles. Breath sounds equal. ABDOMEN: Soft. EXTREMITIES are intact. No cyanosis, clubbing, or edema. SKIN without rash. NEUROLOGIC EXAMINATION: Is brief but nonfocal. LABORATORY DATA: Includes a white count of 14.6, hemoglobin 10.4, hematocrit 32.4, platelet count 169,000. PT, INR is 10.7 and 1.0, PTT 25.3. Sodium 133, potassium is 4.4, chloride 99, CO2 28, anion gap is 6, BUN and creatinine were 9 and 0.65, glucose 117, calcium 8.3, alkaline phosphatase 130, albumin 3.4. The urine is negative. The influenza studies were negative. Chest x-ray shows multifocal airspace disease consistent with either pneumonia and/or fluid overload. In addition, the patient did have a chest x-ray. The chest CT scan on October 22 of this year which showed continued progression of multifocal ground-glass opacities in bilateral lung, suspicious for multifocal edema and/or infiltrates. The radiologist also thought this could relate to chemotherapy reaction and certainly lymphangitic metastasis would have to be considered as well. Medications are reviewed. We put him on some updrafts. He was placed on some Maxipime and vancomycin by Dr. Lockwood. His other medications are appropriate including proton pump inhibitor and antacid medications. ASSESSMENT: . 1. Shortness of breath, which may relate to underlying aspiration pneumonia and/or other etiologies such as chemotherapy induced lung injury and/or lymphangitic metastasis of this primary esophageal cancer. Another possibility will be fluid overload. The patient is currently being treated for all of that at this time. 2. Status post esophageal cancer diagnosed in late 2016. Subsequent to the esophagectomy with gastric pull-through surgery and chemo radiation therapy. The patient does have recurrent esophageal cancer in his stomach and L3 spine. 3. History of gastroesophageal reflux disease. 4. History of exercise-induced asthma. 5. History of acid reflux disease. PLAN: The patient is currently on good antibiotics and updrafts. He is on nasal O2. We will continue to follow. A repeat chest x-ray in the morning. No additional recommendations are made. I did have a long discussion with the patient and the patient's . CLAUDETTEL / MARINN: [id number] /
[2018-12-25] MEDS: CEFEPIME 2 GM in SODIUM CHLORIDE 0.9% 100 ML IVPB SCH ×4 (01:33→23:50)
[2018-12-25] MEDS: HEPARIN SODIUM,PORCINE 5,000 UNIT/ML 1 ML VIAL SQ SCH ×4 (01:34→23:50)
[2018-12-25] MEDS: ACETAMINOPHEN TAB 325 MG TAB PO PRN ×2 (01:34→22:32)
[2018-12-25] MEDS: VANCOMYCIN 1,250 MG in SODIUM CHLORIDE 0.9% 250 ML IVPB SCH ×3 (04:38→22:28)
[2018-12-25] MEDS: DEXTROSE 5%-0.45% NACL 1,000 ML IV SCH (05:40)
[2018-12-25] MEDS: LORazepam 0.5 MG TAB PO SCH ×2 (07:14→16:30)
[2018-12-25] MEDS: PANTOPRAZOLE 40 MG TABLET PO SCH ×2 (07:14→16:31)
[2018-12-25] MEDS: FAMOTIDINE 20 MG TAB PO SCH ×2 (07:15→21:55)
[2018-12-25] MEDS: SENNOSIDES-DOCUSATE SODIUM 1 EACH TAB PO SCH ×2 (07:15→21:55)
[2018-12-25 07:21] LABS: Anisocytosis Slight; Basophils % (A) 0 %; Eosinophils # (A) 0.1 k/uL (0-0.7); Eosinophils % (A) 1 %; HCT 32.2 % (39.0-53.0); HGB 9.9 gm/dL (13.0-17.5); Hypochromasia Slight; Lymphocytes # (A) 1.1 k/uL (1.0-4.8); Lymphocytes % (A) 9 %; MCH 29.1 pg (25.0-35.0); MCHC 30.9 g/dL (31.0-37.0); Monocytes # (A) 0.3 k/uL (0-1.0); Monocytes % (A) 3 %; Neutrophils # (A) 10.8 k/uL (1.3-7.7); Neutrophils % (A) 87 %; Platelet Count 179 k/uL (150-450); RBC 3.42 m/uL (4.30-5.90); RDW 17.7 % (11.5-15.5); WBC 12.4 k/uL (3.8-10.6)
[2018-12-25 07:39] LABS: Potassium 4.5 mmol/L (3.5-5.1)
[2018-12-25 07:40] LABS: ALT 24 U/L (21-72); AST 37 U/L (17-59); African American GFR (CKD) >90 (>60 ml/min/1.73 sqM); Albumin 3.1 g/dL (3.5-5.0); Alkaline Phosphatase 113 U/L (38-126); Anion Gap 4 mmol/L; Blood Urea Nitrogen 9 mg/dL (9-20); Carbon Dioxide 31 mmol/L (22-30); Chloride 102 mmol/L (98-107); Glucose 105 mg/dL (74-99); Sodium 137 mmol/L (137-145); Total Bilirubin 0.8 mg/dL (0.2-1.3); Total Protein 5.8 g/dL (6.3-8.2)
--- NOTE | 2018-12-25 08:11 | XR ---
EXAMINATION TYPE: XR chest 2V DATE OF EXAM: 12/25/2018 COMPARISON: 12/24/2018 HISTORY: 48 year-old male shortness of breath, pneumonia TECHNIQUE: PA and lateral views FINDINGS: Heart normal size. Multifocal patchy and confluent airspace opacities, right greater than left are mi nimally improved at the right base. Nodularity at the right base suspected nipple shadow but should b e reassessed at follow-up. Right anterior chest wall injection port catheter tip in the upper right a trium. IMPRESSION: Persistent multifocal airspace disease. Stable to slightly improved at the right base.
[2018-12-25] MEDS: IPRATROPIUM-ALBUTEROL 3 ML NEB INHALATION SCH ×6 (08:18→23:19)
[2018-12-25] MEDS ORDERED: FUROSEMIDE 10 MG/ML 4 ML VIAL IV STA ×2 (08:44→17:47)
--- NOTE | 2018-12-25 12:08 | P.HPIM ---
History of Present Illness H&P Date: 12/25/18 Chief Complaint: Fever, nausea, vomiting, on chemotherapy This is a 48-year-old gentleman with history of esophageal cancer, completed radiation and chemotherapy, history of gastric pull-through, recent biopsy reporting adenocarcinoma with chemotherapy resumed. T-max on admission 100.3, WBC 14.6, neutrophils normal, hemoglobin ,platelets, electrolytes essentially normal.Currently T-max 100.2, WBC improving, down to 12.4.. Maintained on IV fluid hydration of D5.45 MLS per hour, cefepime, vancomycin. Speech consulted to evaluate for silent aspiration(prior history of PEG tube which has been discontinued). Chest x-ray reported new multifocal airspace disease possible multifocal pneumonia versus pulmonary edema. F/U chest x-ray this morning with no significant change. On admission patient had been satting high 90s on room air. During the afternoon patient sats decreased to 93-94%. Last night, patient desatted to 70s to 80s %, A teamed called, received a dose of Lasix 40 IV push and placed on BiPAP. BiPAP weaned off currently on 15 L high flow nasal cannula this morning, maintaining O2 sats of 93%. No further nausea vomiting or diarrhea. Tolerating clear liquid diet. Review of Systems Review of systems: CONSTITUTIONAL: positive fever, malaise, and fatigue. HEENT: No recent visual problems or hearing problems. Denied any sore throat. CARDIOVASCULAR: No chest pain, no palpitations, no syncope. PULMONARY: Positive shortness of breath, occasional cough, no hemoptysis. Possible aspiration. GASTROINTESTINAL: No diarrhea, positive nausea, positive vomiting, no abdominal pain. Normoactive bowel sounds. NEUROLOGICAL: No headaches, diffuse weakness, no numbness. HEMATOLOGICAL: Denies any bleeding or petechiae. GENITOURINARY: Denies any burning micturition, frequency, or urgency. MUSCULOSKELETAL/RHEUMATOLOGICAL: Denies any joint pain, swelling, or any muscle pain. ENDOCRINE: Denies any polyuria or polydipsia. PSYCHIATRIC: anxiety, depression The rest of the 14 point review of systems is negative Past Medical History Past Medical History: Asthma, Cancer, GERD/Reflux Additional Past Medical History / Comment(s): EXCERCISE INDUCED ASTHMA (no current meds), ESOPHAGEAL & STOMACH CANCER (DIAGNOSED 07/2016, RECEIVED CHEMO & RADIATION - SEP TO OCTOBER 2016)., STOMACH PAIN. , PTS STATES NEW DIAGNOSIS OF STOMACH CANCER AND CANCER IN THE SPINE., SPITS UP SALIVA. History of Any Multi-Drug Resistant Organisms: None Reported Additional Past Surgical History / Comment(s): MULT SX FOR CLEFT LIP, LASIK , BONE GRAFT TAKEN FROM HIP TO HIS JAW (14YRS OLD), 1/4 OF STOMACH REMOVED AND ESOPHAGUS SURGERY FOR CANCER-(DECEMBER 2016 [facility] EGD (06/27/18) Past Anesthesia/Blood Transfusion Reactions: Motion Sickness, Postoperative Nausea & Vomiting (PONV) Past Psychological History: Anxiety, Depression Additional Psychological History / Comment(s): 48-year-old male. . Lives with his and they have 5 children. Is not a tobacco smoker. Medically disabled. Used to work as a superintendent maintenance. No experience. Multiple tattoos Smoking Status: Never smoker Past Alcohol Use History: Occasional Past Drug Use History: Marijuana Additional Drug Use History / Comment(s): uses marinol and RSO - Past Family History Mother Family Medical History: No Reported History Medications and Allergies Home Medications Medication Instructions Recorded Confirmed Type traZODone HCL 150 mg PO HS 06/24/18 12/24/18 History Famotidine [Pepcid AC] 10 mg PO BID 07/09/18 12/24/18 History Esomeprazole Magnesium [NexIUM] 40 mg PO BID 12/24/18 12/24/18 History HYDROmorphone [Dilaudid] 2 mg PO TID 12/24/18 12/24/18 History LORazepam [Ativan] 0.5 mg PO TID 12/24/18 12/24/18 History Ondansetron Odt [Zofran ODT] 4 mg SL Q6HR 12/24/18 12/24/18 History Prochlorperazine [Compazine] 10 mg PO Q6H 12/24/18 12/24/18 History fentaNYL 75MCG/HR PATCH [Duragesic 75 mcg PO Q72H 12/24/18 12/24/18 History 75MCG/HR] Allergies Allergy/AdvReac Type Severity Reaction Status Date / Time hydrocodone [From [place]] Allergy Nausea & Verified 12/24/18 10:23 Vomiting metoclopramide [From Reglan] Allergy body Verified 12/24/18 10:23 jerks, suicidal thoughts Physical Exam Vitals: Vital Signs Temp Pulse Pulse Resp BP Pulse Ox 12/25/18 06:55 99.2 F 95 20 117/73 93 L 12/25/18 04:17 98.4 F 12/25/18 01:06 100.2 F H 107 H 18 102/68 95 12/24/18 21:30 38 H 12/24/18 19:35 132 H 26 H 12/24/18 19:25 125 H 30 H 12/24/18 18:49 98.3 F 122 H 20 118/77 87 L 12/24/18 16:58 80 12/24/18 16:52 93 L 12/24/18 16:45 82 12/24/18 14:20 98.1 F 89 92/55 91 L 12/24/18 12:43 100.4 F H 12/24/18 11:07 102.2 F H 12/24/18 09:13 103.1 F H 78 18 93/54 98 Intake and Output 12/24/18 12/25/18 12/25/18 22:59 06:59 14:59 Output Total 1050 Balance -1050 Output: Urine 1050 Other: Voiding Method Urinal PHYSICAL EXAM: VITAL SIGNS: As above GENERAL: Sitting up in bed, respiratory effort increased HEENT: Conjunctivae normal. eyes normal. no oral sores, no thrush. NECK: No JVD. No thyroid enlargement. No LNs CARDIOVASCULAR: S1, S2 muffled. No murmur RESPIRATION: Breath sounds diminished in the bases. Fine right basilar crac kles. Occasional coarse rhonchi, no wheezing. ABDOMEN: Soft, nontender . No guarding. no masses palpable. Bowel sounds heard. LEGS: No edema. no swelling, no cyanosis, no clubbing. PSYCHIATRY: Alert and oriented -3, mood and affect normal. NERVOUS SYSTEM: Cranial N 2-12 grossly normal. Moves all 4 limbs. Diffuse weakness No focal deficits. Skin: no lesions, no rash Joints: No active swelling. No inflammation. Lymphatic system. No LN neck axilla or groin. Results CBC & Chem 7: 12/25/18 06:37 12/25/18 06:37 Labs: Abnormal Lab Results - Last 24 Hours (Table) 12/24/18 12/24/18 12/24/18 Range/Units 10:00 10:00 11:45 WBC 14.6 H (3.8-10.6) k/uL RBC 3.46 L (4.30-5.90) m/uL Hgb 10.4 L (13.0-17.5) gm/dL Hct 32.4 L (39.0-53.0) % MCHC (31.0-37.0) g/dL RDW 18.1 H (11.5-15.5) % Neutrophils # 13.4 H (1.3-7.7) k/uL Lymphocytes # 0.5 L (1.0-4.8) k/uL Sodium 133 L (137-145) mmol/L Carbon Dioxide (22-30) mmol/L Creatinine 0.65 L (0.66-1.25) mg/dL Glucose 117 H (74-99) mg/dL Calcium 8.3 L (8.4-10.2) mg/dL Alkaline Phosphatase 130 H (38-126) U/L Total Protein 6.1 L (6.3-8.2) g/dL Albumin 3.4 L (3.5-5.0) g/dL Urine Protein Trace H (Negative) 12/25/18 12/25/18 Range/Units 06:37 06:37 WBC 12.4 H (3.8-10.6) k/uL RBC 3.42 L (4.30-5.90) m/uL Hgb 9.9 L (13.0-17.5) gm/dL Hct 32.2 L (39.0-53.0) % MCHC 30.9 L (31.0-37.0) g/dL RDW 17.7 H (11.5-15.5) % Neutrophils # 10.8 H (1.3-7.7) k/uL Lymphocytes # (1.0-4.8) k/uL Sodium (137-145) mmol/L Carbon Dioxide 31 H (22-30) mmol/L Creatinine (0.66-1.25) mg/dL Glucose 105 H (74-99) mg/dL Calcium 8.0 L (8.4-10.2) mg/dL Alkaline Phosphatase (38-126) U/L Total Protein 5.8 L (6.3-8.2) g/dL Albumin 3.1 L (3.5-5.0) g/dL Urine Protein (Negative) Thrombosis Risk Factor Assmnt - Choose All That Apply Each Factor Represents 1 point: Age 41-60 years Thrombosis Risk Factor Assessment Total Risk Factor Score: 1 Thrombosis Risk Factor Assessment Level: Low Risk Assessment and Plan Assessment: -Shortness of breath, possibly aspiration pneumonia, possible PE, possible fluid overload-chemotherapy induced, possibly metastatic. -Hypoxic respiratory failure secondary to the above -Status post esophageal cancer with esophagectomy and gastric pull-through, status post chemo therapy and radiation. Recent biopsy reporting adenocarcinoma with chemotherapy resumed. -Fevers, -Leukocytosis, possibly infectious. Plan: Continue current medication regime ,monitoring and symptomatic treatment. Maintain nebulized bronchodilators, antibiotics .If swallow evaluation cleared, advance diet as tolerated. Additional Lasix 40 IV push [address] ordered, pending. Prognosis guarded given multiple complex medical issues. The impression and plan of care has been dictated as directed. : I performed a history and examination of this patient, discussed the same with the dictator. I agree with the dictator's note ,documented as a scribe. Any additional findings or plans will be noted. Time taken: 35 minutes
--- NOTE | 2018-12-25 12:08 | P.PN ---
Subjective Progress Note Date: 12/25/18 Principal diagnosis: Shortness of breath, factorial, related to suspected aspiration pneumonia, acute lung injury related to chemotherapy, or lymphangitic metastasis of the primary esophageal cancer On 12/25/2018 patient seen in follow-up on the medical surgical floor. Overnig ht patient's condition worsened, and his oxygen requirement has increased, last night rapid response team was called for worsening hypoxemia, and shortness of breath, patient was given a dose of IV Lasix, and placed on BiPAP support. His morning patient was switched over to a high flow nasal cannula, on which he remains at 15 L/m. He diuresed well overnight, and put out over a liter of urine, pulse ox on 15 L is 93%, patient is more comfortable, he is awake and alert, sitting up in the bed, in no acute distress. Afebrile, hemodynamically patient is stable, chest x-ray was obtained this morning showed persistent multifocal airspace disease, stable to slightly improved at the right base. A ntibiotics in the form of cefepime and vancomycin, and has not been able to produce a sputum sample, blood culture so far is negative. Blood work has been reviewed, showing a white blood cell count of 12.4, hemoglobin of 9.9, electrolytes were in medical with the exception of CO2 which has gone up to 31, B1 at 9 and creatinine is 0.67, patient was given additional dose of IV Lasix this morning, her clinical exam she looks fairly comfortable, no use of accessory muscles of breathing, no wheezing, no significant chest congestion. His proBNP came back at 787, not significantly elevated to suggest acute exacerbation of congestive heart failure. Influenza screen was negative, urinalysis was negative. Objective - Vital Signs Vital signs: Vital Signs Temp 99.2 F 12/25/18 06:55 Pulse 99 12/25/18 11:48 Resp 20 12/25/18 07:20 BP 117/73 12/25/18 06:55 Pulse Ox 93 L 12/25/18 06:55 Intake & Output 12/24/18 12/25/18 12/25/18 18:59 06:59 18:59 Output Total 1050 Balance -1050 Weight 71.817 kg Output: Urine 1050 Other: Voiding Method Urinal Urinal Urinal - Exam GENERAL EXAM: Alert, pleasant, 48-year-old white male seen liters per high flow nasal cannula comfortable in no apparent distress. HEAD: Normocephalic/atraumatic. EYES: Normal reaction of pupils, equal size. Conjunctiva pink, sclera white. NOSE: Clear with pink turbinates. THROAT: No erythema or exudates. NECK: No masses, no JVD, no thyroid enlargement, no adenopathy. CHEST: No chest wall deformity. Symmetrical expansion. LUNGS: Equal air entry with no crackles, wheeze, a few scattered rhonchi CVS: Regular rate and rhythm, normal S1 and S2, no gallops, no murmurs, no rubs ABDOMEN: Soft, nontender. No hepatosplenomegaly, normal bowel sounds, no guarding or rigidity. EXTREMITIES: No clubbing, no edema, no cyanosis, 2+ pulses and upper and lower extremities. MUSCULOSKELETAL: Muscle strength and tone normal. SPINE: No scoliosis or deformity SKIN: No rashes CENTRAL NERVOUS SYSTEM: Alert and oriented -3. No focal deficits, tone is normal in all 4 extremities. PSYCHIATRIC: Alert and oriented -3. Appropriate affect. Intact judgment and insight. - Labs CBC & Chem 7: 12/25/18 06:37 12/25/18 06:37 Labs: Abnormal Lab Results - Last 24 Hours (Table) 12/24/18 12/25/18 12/25/18 Range/Units 11:45 06:37 06:37 WBC 12.4 H (3.8-10.6) k/uL RBC 3.42 L (4.30-5.90) m/uL Hgb 9.9 L (13.0-17.5) gm/dL Hct 32.2 L (39.0-53.0) % MCHC 30.9 L (31.0-37.0) g/dL RDW 17.7 H (11.5-15.5) % Neutrophils # 10.8 H (1.3-7.7) k/uL Carbon Dioxide 31 H (22-30) mmol/L Glucose 105 H (74-99) mg/dL Calcium 8.0 L (8.4-10.2) mg/dL Total Protein 5.8 L (6.3-8.2) g/dL Albumin 3.1 L (3.5-5.0) g/dL Urine Protein Trace H (Negative) Microbiology - Last 24 Hours (Table) 12/24/18 09:40 Blood Culture - Preliminary Blood No Growth after 24 hours Assessment and Plan Plan: Assessment: #1. Acute hypoxemic respiratory failure related to possibility of underlying aspiration pneumonia, acute lung injury from chemotherapy, or metastatic esopha geal cancer. #2. Esophageal cancer diagnosed in 2016 status post esophagectomy with gastric pull-through and chemoradiation therapy #3. Sent recurrence of esophageal cancer with metastasis in his stomach and L3 spine #4. History of GERD #5. History of exercise-induced asthma #6. History of acid reflux disease #7. Mildly elevated BNP, patient was given a couple doses of Lasix, but clin ically does not look fluid overloaded. Doubt exacerbation of congestive heart failure Plan: Continue current antibiotic coverage, ID service is following and making recommendations, no significant chest congestion or phlegm production, not significantly bronchospastic on physical exam, will continue breathing treatments, today's chest x-ray has been reviewed, and shows slight improvement in the appearance of the right lower lung infiltrate, but for the most part it is stable, with the multifocal infiltrates, that could relate to underlying pneumonia, acute lung injury, possibility of metastatic esophageal cancer. ProBNP was noted, is not significantly elevated and doubt underlying heart failure or significant fluid overload. Maintain aspiration precautions, patient is awaiting CT angiogram of the chest to rule out pulmonary embolism, will await the results of those. Continue to follow I performed a history & physical examination of the patient and discussed their management with my nurse practitioner, Jennifer Rodriguez. I reviewed the nurse practitioner's note and agree with the documented findings and plan of care. Lung sounds are positive for scattered rhonchi. The findings and the impression was discussed with the patient. I attest to the documentation by the nurse pra ctitioner. Time with Patient: Less than 30
--- NOTE | 2018-12-25 13:11 | CT ---
EXAMINATION TYPE: CT angio chest DATE OF EXAM: 12/25/2018 COMPARISON: 10/22/2018 HISTORY: 48-year-old male hypoxia, Shortness of breath TECHNIQUE: Contiguous axial scanning of the chest performed with IV Contrast, patient injected with 1 00 mL of Isovue 370. Coronal and sagittal MIP reconstructions performed. CT DLP: 252.2 mGycm Automated exposure control for dose reduction was used. FINDINGS: Heart normal size without pericardial effusion. No flattening of the interventricular septum or reflu x of contrast into the hepatic veins. Aorta normal caliber with conventional arch vessel branching anatomy. Some prominent hilar lymph nodes measuring up to 1.1 cm, new from 10/22/2018 likely reactive. Satisfactory opacification of the pulmonary system. Excessive respiratory motion in the lower lungs. No definite pulmonary embolism is identified. Evidence of prior esophagectomy and gastric pull-through procedure. There is prominent retained fluid and debris within the gastric pull-through with moderate to severe edematous wall thickening. There is a subtle pneumatosis of difficult to exclude. Along the right posterior gastric wall, some curvili near hyperdensity demonstrated. Some type of ingested high-density material versus active bleeding. R efer to axial image 90 and sagittal image 64. Along with the pull-through, there is a sizable hernia containing the distal half of the transverse c olon and accompanying mesenteric fat. Moderate circumferential wall thickening of the proximal portion of the herniated transverse colon, r eference axial image 121. There is a new small right pleural effusion with extensive progression in patchy and confluent ground glass septal lines throughout the lungs. Right anterior chest wall injection port catheter near the cavoatrial junction. Visualized upper abdomen shows borderline size spleen at 13.5 cm. Bones: Endplate spondylosis mid to lower thoracic spine with accentuated lower thoracic kyphosis. IMPRESSION: 1. SOME RESPIRATORY MOTION IN THE LOWER LUNGS. NO DEFINITE PULMONARY EMBOLUS. 2. STATUS POST ESOPHAGECTOMY WITH GASTRIC PULL-THROUGH. THE PULL-THROUGH CONTAINS EXTENSIVE FLUID AND INGESTED DEBRIS AND THERE IS MODERATE TO SEVERE WALL THICKENING AND QUESTIONABLE AREAS OF PNEUMATOSI S. CONSIDER UNDERLYING INFECTIOUS GASTRITIS OR GASTRIC OUTLET OBSTRUCTION. AN ISCHEMIC ETIOLOGY CAN B E CORRELATED WITH LACTIC ACID LEVELS. 3. THERE IS CURVILINEAR HIGH DENSITY MATERIAL ALONG THE RIGHT POSTERIOR ASPECT OF THE GASTRIC PULL-TH ROUGH. UNCLEAR IF THIS REPRESENTS HIGH DENSITY INGESTED MATERIAL OR A FOCUS OF ACTIVE EXTRAVASATION/B LEEDING. CORRELATE WITH H&H. 4. NEW SMALL RIGHT PLEURAL EFFUSION AND SEVERE DIFFUSE GROUNDGLASS AND INTERSTITIAL LUNG DISEASE, FLO QUIROZ PROGRESSED FROM 10/22/2018. SOME DIFFERENTIAL CONSIDERATIONS INCLUDE NONCARDIOGENIC PULMONARY ED POLY, DAH/VASCULITIS, NSIP, HYPERSENSITIVITY PNEUMONITIS, DRUG REACTION, CHEMICAL PNEUMONITIS IN THE S ETTING OF ASPIRATION, AND ATYPICAL PNEUMONIAS. FURTHER CLINICAL CORRELATION WILL BE NEEDED. 5. ALONG WITH THE GASTRIC PULL-THROUGH, THERE IS A STABLE SIZABLE HERNIA INVOLVING THE DISTAL HALF OF THE TRANSVERSE COLON AND ACCOMPANYING MESENTERIC FAT. THE PROXIMAL HALF OF THIS HERNIATED COLON NOW SHOWS MODERATE WALL THICKENING SUGGESTING A NONSPECIFIC COLITIS. Critical findings called to nurse Moore on 4SSUR at 1:07pm.
--- NOTE | 2018-12-25 16:05 | P.PN ---
Subjective Progress Note Date: 12/25/18 Principal diagnosis: Hypoxia fever Robe had an a team called overnight for acute hypoxic respiratory failure requiring increased oxygen and bipap. he is now on hi flow. at bedside. CT scan chest ordered. Objective - Vital Signs Vital signs: Vital Signs Temp 99.2 F 12/25/18 06:55 Pulse 108 H 12/25/18 11:59 Resp 20 12/25/18 07:20 BP 117/73 12/25/18 06:55 Pulse Ox 93 L 12/25/18 06:55 Intake & Output 12/24/18 12/25/18 12/25/18 18:59 06:59 18:59 Intake Total 118 Output Total 1050 Balance -1050 118 Weight 71.817 kg Intake: Oral 118 Output: Urine 1050 Other: Voiding Method Urinal Urinal Urinal - Exam General: Alert and Oriented x3, No Acute Distress Head: Normocytic, Atraumatic Neck: Supple Mouth: No Lesions, No Thrush Eyes: Non-sclerotic No Palpable cervical, supraclavicular, axillary adenopathy Heart: Tachy Lungs:Diminished throughout , increased respiratory effort noted Abdomen: Soft, Non-Distended, Non-Tended, BSx4 Extremities: No Edema, Equal Strength Neurological: No Focal Defects: No sensory or motor deficits noted Psych: Calm and cooperative - Labs CBC & Chem 7: 12/25/18 06:37 12/25/18 06:37 Labs: Abnormal Lab Results - Last 24 Hours (Table) 12/25/18 12/25/18 Range/Units 06:37 06:37 WBC 12.4 H (3.8-10.6) k/uL RBC 3.42 L (4.30-5.90) m/uL Hgb 9.9 L (13.0-17.5) gm/dL Hct 32.2 L (39.0-53.0) % MCHC 30.9 L (31.0-37.0) g/dL RDW 17.7 H (11.5-15.5) % Neutrophils # 10.8 H (1.3-7.7) k/uL Carbon Dioxide 31 H (22-30) mmol/L Glucose 105 H (74-99) mg/dL Calcium 8.0 L (8.4-10.2) mg/dL Total Protein 5.8 L (6.3-8.2) g/dL Albumin 3.1 L (3.5-5.0) g/dL Microbiology - Last 24 Hours (Table) 12/24/18 11:30 Blood Culture - Preliminary Blood No Growth after 24 hours 12/24/18 09:40 Blood Culture - Preliminary Blood No Growth after 24 hours Assessment and Plan Plan: Assessment and Plan: Febrile on Chemotherapy: - Reeves Culture - Infectious Disease Consultation - Broad Spectrum antibiotics, concern for possible aspiration, swallow evaluation - Chest Xray Esophageal Cancer: Recurrent: - Currently on Chemotherapy with primary Oncologist Dr. Lockwood - He was due for chemo yesterday but did not feel well so did not receive - Treatment on hold until acute situation resolves Acute Hypoxic Respiratory Failure: Worsening - Component of Aspiration versus pneumonia versus lymphangenic spread - Chest xray ordered - Pulmonary consulted CT chest ordered to evaluate for PE versus spread CBC and CMP daily
[2018-12-25 19:22] LABS: Glucose,Whole Blood 147 mg/dL (75-99)
--- NOTE | 2018-12-25 23:31 | P.PN ---
Subjective Progress Note Date: 12/25/18 48-year-old male who is known history of esophageal cancer status post the gastric pull-through procedure. Has completed his original course of chemotherapy and radiation therapy. Was having increasing difficulties and recent biopsies continue to show evidence of adenocarcinoma. He is receiving further courses of chemotherapy at this time. He however now presents to hospital with fever of 103 with chills and rigors and feeling poorly. He has minimal pulmonary symptoms with some cough without much sputum production and no hemoptysis. He relates since coming to Hospital his fever and chills are starting to improve. 12/25/2018 Does feel quite poorly overall. Status has worsened he is more short of breath feels worse today. Requiring increasing amounts of oxygen. Patient still feels very poorly. Objective - Vital Signs Vital signs: Vital Signs Temp 99.7 F H 12/25/18 19:05 Pulse 100 12/25/18 23:20 Resp 27 H 12/25/18 19:05 BP 94/65 12/25/18 19:05 Pulse Ox 75 L 12/25/18 19:05 Intake & Output 12/25/18 12/25/18 12/26/18 06:59 18:59 06:59 Intake Total 118 Output Total 1050 Balance -1050 118 Intake: Oral 118 Output: Urine 1050 Other: Voiding Method Urinal Urinal Urinal - Exam 48-year-old male feeling now worse since admission with increasing shortness of breath HEENT: Anicteric conjunctiva are pink and moist nasal mucosa grossly intact without significant lesions, there is no thrush. Neck: The neck is supple without significant lymphadenopathy or thyromegaly. Lungs: Symmetrical air entry is noted few basilar crackles few expiratory wheezes no bronchial sounds. Heart: Regular rate and rhythm with an audible S1-S2, no S3 no S4. There is no significant murmur click or rub, PMI was nondisplaced. Abdomen: Positive bowel sounds soft and nontender without palpable masses or organomegaly. There was no guarding or rebound. Prior PEG tube site is well- healed Extremities: The upper extremities have excellent pulses they are symmetric, no significant petechiae or telangiectasia. No splinter hemorrhages were noted. The lower extremities are free from significant edema. The peripheral pulses we re 2+ and symmetric. Evidence of muscular wasting Neuro: Mildly sedated feeling poorly - Labs CBC & Chem 7: 12/25/18 06:37 12/25/18 06:37 Labs: Abnormal Lab Results - Last 24 Hours (Table) 12/25/18 12/25/18 12/25/18 Range/Units 06:37 06:37 19:07 WBC 12.4 H (3.8-10.6) k/uL RBC 3.42 L (4.30-5.90) m/uL Hgb 9.9 L (13.0-17.5) gm/dL Hct 32.2 L (39.0-53.0) % MCHC 30.9 L (31.0-37.0) g/dL RDW 17.7 H (11.5-15.5) % Neutrophils # 10.8 H (1.3-7.7) k/uL Carbon Dioxide 31 H (22-30) mmol/L Glucose 105 H (74-99) mg/dL POC Glucose (mg/dL) 147 H (75-99) mg/dL Calcium 8.0 L (8.4-10.2) mg/dL Total Protein 5.8 L (6.3-8.2) g/dL Albumin 3.1 L (3.5-5.0) g/dL Microbiology - Last 24 Hours (Table) 12/24/18 11:30 Blood Culture - Preliminary Blood No Growth after 24 hours 12/24/18 09:40 Blood Culture - Preliminary Blood No Growth after 24 hours Laboratory Results WBC 12.4 k/uL (3.8-10.6) H 12/25/18 06:37 RBC 3.42 m/uL (4.30-5.90) L 12/25/18 06:37 Hgb 9.9 gm/dL (13.0-17.5) L 12/25/18 06:37 Hct 32.2 % (39.0-53.0) L 12/25/18 06:37 MCV 94.0 fL (80.0-100.0) 12/25/18 06:37 MCH 29.1 pg (25.0-35.0) 12/25/18 06:37 MCHC 30.9 g/dL (31.0-37.0) L 12/25/18 06:37 RDW 17.7 % (11.5-15.5) H 12/25/18 06:37 Plt Count 179 k/uL (150-450) 12/25/18 06:37 Neutrophils % 87 % 12/25/18 06:37 Lymphocytes % 9 % 12/25/18 06:37 Monocytes % 3 % 12/25/18 06:37 Eosinophils % 1 % 12/25/18 06:37 Basophils % 0 % 12/25/18 06:37 Neutrophils # 10.8 k/uL (1.3-7.7) H 12/25/18 06:37 Lymphocytes # 1.1 k/uL (1.0-4.8) 12/25/18 06:37 Monocytes # 0.3 k/uL (0-1.0) 12/25/18 06:37 Eosinophils # 0.1 k/uL (0-0.7) 12/25/18 06:37 Basophils # 0.0 k/uL (0-0.2) 12/25/18 06:37 Hypochromasia Slight 12/25/18 06:37 Poikilocytosis Slight 12/24/18 10:00 Anisocytosis Slight 12/25/18 06:37 PT 10.7 sec (9.0-12.0) 12/24/18 10:00 INR 1.0 (<1.2) 12/24/18 10:00 APTT 25.3 sec (22.0-30.0) 12/24/18 10:00 Sodium 137 mmol/L (137-145) 12/25/18 06:37 Potassium 4.5 mmol/L (3.5-5.1) 12/25/18 06:37 Chloride 102 mmol/L (98-107) 12/25/18 06:37 Carbon Dioxide 31 mmol/L (22-30) H 12/25/18 06:37 Anion Gap 4 mmol/L 12/25/18 06:37 BUN 9 mg/dL (9-20) 12/25/18 06:37 Creatinine 0.67 mg/dL (0.66-1.25) 12/25/18 06:37 Est GFR (CKD-EPI)AfAm >90 (>60 ml/min/1.73 sqM) 12/25/18 06:37 Est GFR (CKD-EPI)NonAf >90 (>60 ml/min/1.73 sqM) 12/25/18 06:37 Glucose 105 mg/dL (74-99) H 12/25/18 06:37 POC Glucose (mg/dL) 147 mg/dL (75-99) H 12/25/18 19:07 POC Glu Bond Analyst Lois Sol 12/25/18 19:07 Calcium 8.0 mg/dL (8.4-10.2) L 12/25/18 06:37 Magnesium 2.0 mg/dL (1.6-2.3) 12/25/18 06:37 Total Bilirubin 0.8 mg/dL (0.2-1.3) 12/25/18 06:37 AST 37 U/L (17-59) 12/25/18 06:37 ALT 24 U/L (21-72) 12/25/18 06:37 Alkaline Phosphatase 113 U/L (38-126) 12/25/18 06:37 NT-Pro-B Natriuret Pep 787 pg/mL 12/25/18 06:37 Total Protein 5.8 g/dL (6.3-8.2) L 12/25/18 06:37 Albumin 3.1 g/dL (3.5-5.0) L 12/25/18 06:37 Urine Color Yellow 12/24/18 11:45 Urine Appearance Clear (Clear) 12/24/18 11:45 Urine pH 7.0 (5.0-8.0) 12/24/18 11:45 Ur Specific [place] 1.008 (1.001-1.035) 12/24/18 11:45 Urine Protein Trace (Negative) H 12/24/18 11:45 Urine Glucose (UA) Negative (Negative) 12/24/18 11:45 Urine Ketones Negative (Negative) 12/24/18 11:45 Urine Blood Negative (Negative) 12/24/18 11:45 Urine Nitrite Negative (Negative) 12/24/18 11:45 Urine Bilirubin Negative (Negative) 12/24/18 11:45 Urine Urobilinogen 2.0 mg/dL (<2.0) 12/24/18 11:45 Ur Leukocyte Esterase Negative (Negative) 12/24/18 11:45 Influenza Type A RNA Not Detected (Not Detectd) 12/24/18 10:15 Influenza Type B (PCR) Not Detected (Not Detectd) 12/24/18 10:15 Microbiology 12/24/18 11:30 Blood Blood Culture - Preliminary No Growth after 24 hours 12/24/18 09:40 Blood Blood Culture - Preliminary No Growth after 24 hours Assessment and Plan (1) Esophageal cancer Current Visit: No Status: Acute Code(s): C15.9 - MALIGNANT NEOPLASM OF ESOPHAGUS, UNSPECIFIED SNOMED Code(s): 205486579 (2) Fever Narrative/Plan: 48 -year-old male presents to Hospital feeling poorly with onset of increasing fever malaise and chills. The patient has a known history of esophageal cancer, status post gastric pull-through who has already received his original course of chemotherapy and radiation. But is now receiving further chemotherapy with evidence of ongoing adenocarcinoma. The patient is starting to feel somewhat better since admission and initiation of fluids and antibiotic therapy. The patient has had imaging studies including the computed tomography scan that is revealing some ongoing difficulties with pulmonary infiltrates. Patient is currently receiving cefepime and vancomycin and tolerating that well. We'll need to have further cultures to help further define his antibiotic therapy. He however is not neutropenic at this time. Would like to have the speech pathologist to evaluate the possibility of silent aspiration or reflux that could be causing the current pulmonary changes by computed tomography scan. Leukocytosis appears to be in the bases of the current infectious process. 12/25/2018 patient is had worsening of his status. Respiratory status is worsening. Concern as to ongoing aspiration as etiology for his current respiratory distress and pulmonary changes. CT angiogram requested. Pulmonary critical care evaluating There are multiple other concerns including lymphangitic spread of his malignancy, acute lung injury, acute lung injury from chemotherapy. We've asked for speech therapy to evaluate if he is having ongoing significant aspiration. Fever has responded antibiotic therapy await cultures to further direct antibiotic therapy. Current Visit: Yes Status: Acute Code(s): R50.9 - FEVER, UNSPECIFIED SNOMED Code(s): 588386445 (3) Pulmonary infiltrates Current Visit: Yes Status: Acute Code(s): R91.8 - OTHER NONSPECIFIC ABNORMAL FINDING OF LUNG FIELD SNOMED Code(s): 999356724
[2018-12-26] MEDS: IPRATROPIUM-ALBUTEROL 3 ML NEB INHALATION SCH ×6 (03:13→23:08)
[2018-12-26] MEDS ORDERED: VANCOMYCIN TROUGH DUE 1 EACH MISC MISCELLANE ONE (04:00)
[2018-12-26] MEDS: ACETAMINOPHEN TAB 325 MG TAB PO PRN ×2 (04:10→20:30)
[2018-12-26 04:21] LABS: Anisocytosis Slight; Basophils % (A) 0 %; Eosinophils # (A) 0.2 k/uL (0-0.7); Eosinophils % (A) 2 %; HCT 30.7 % (39.0-53.0); HGB 9.5 gm/dL (13.0-17.5); Hypochromasia Slight; Lymphocytes # (A) 0.8 k/uL (1.0-4.8); Lymphocytes % (A) 7 %; MCH 28.8 pg (25.0-35.0); MCHC 30.9 g/dL (31.0-37.0); MCV 93.2 fL (80.0-100.0); Mean Platelet Volume 8.3; Monocytes # (A) 0.2 k/uL (0-1.0); Monocytes % (A) 2 %; Neutrophils # (A) 9.1 k/uL (1.3-7.7); Neutrophils % (A) 88 %; Platelet Count 159 k/uL (150-450); RBC 3.29 m/uL (4.30-5.90); RDW 17.5 % (11.5-15.5); WBC 10.4 k/uL (3.8-10.6)
[2018-12-26 04:38] LABS: ALT 17 U/L (21-72); AST 35 U/L (17-59); African American GFR (CKD) >90 (>60 ml/min/1.73 sqM); Albumin 2.9 g/dL (3.5-5.0); Alkaline Phosphatase 108 U/L (38-126); Anion Gap 3 mmol/L; Blood Urea Nitrogen 9 mg/dL (9-20); Calcium 8.3 mg/dL (8.4-10.2); Carbon Dioxide 33 mmol/L (22-30); Chloride 98 mmol/L (98-107); Glucose 109 mg/dL (74-99); Magnesium 2.1 mg/dL (1.6-2.3); Potassium 4.3 mmol/L (3.5-5.1); Sodium 134 mmol/L (137-145); Total Bilirubin 0.7 mg/dL (0.2-1.3); Total Protein 5.5 g/dL (6.3-8.2)
[2018-12-26] MEDS: VANCOMYCIN 1,250 MG in SODIUM CHLORIDE 0.9% 250 ML IVPB SCH (06:43)
[2018-12-26] MEDS: PANTOPRAZOLE 40 MG TABLET PO SCH ×2 (06:44→17:11)
--- NOTE | 2018-12-26 07:26 | PN ---
PROGRESS NOTE DATE OF SERVICE: 12/26/2018 This is a pleasant 48-year-old gentleman with a history of esophageal cancer. He is status post esophagectomy and gastric pull-through surgery back in 2017. It was done by Dr. Poncho Mack at [facility]. Unfortunately, the patient has recurrence of his esophageal cancer with disease noted in his stomach and also in his L3 spine. Anyway, we have been seeing the patient for worsening respiratory status. His chest x- ray shows progressive diffuse interstitial and alveolar infiltrates with of unclear etiology. This could relate to aspiration pneumonia, chemotherapy induced lung injury, lymphangitic carcinomatosis or chemotherapy induced lung injury. Nonetheless, the patient's overall situation has declined and last night, I spoke to the charge nurse, Anabela, and we decided to move the patient to the ICU. We attempted BiPAP on the patient, but he could not tolerate it. For that reason, we used the AIRVO. Currently he is on AIRVO at 50 L/minute and his estimated FiO2 is 75%. With that, he seemed to be saturating relatively well and he does feel better. The patient does have a history of acid reflux disease, exercise-induced asthma, and history of esophageal cancer with mets as I mentioned to the stomach and L3 spine. The patient's chest x-ray does show diffuse pattern and we attempted use some Lasix thinking that some of what we are seeing was fluid overload, but I do not believe that was really the actual situation. Again, today he is feeling a bit better. I also did a CT angiogram to rule out PE and that was ruled out. Current vital signs are reviewed. His temperature is a 100 degrees, heart rate 97, respiratory rate 25, blood pressure 99/61, mean 73 and saturations are between 90% and 94% up to 97% on the AIRVO. He appears much more comfortable. In no acute distress. Occasionally he will have coughing episodes. HEENT: Examination is grossly unremarkable. The AIRVO cannulae are noted. NECK: Supple. Full range of motion. No adenopathy. CARDIOVASCULAR: Examination reveals heart rate hanging right around 100 beats per minute. It is regular. S1, S2 normal. LUNGS: Reveal diffuse coarse rhonchi. There is some bibasilar crackles. No wheezes. ABDOMEN: Soft. EXTREMITIES: Are intact. No cyanosis, clubbing, or edema. SKIN: Without rash. NEUROLOGIC: Examination is brief but nonfocal. Labs are reviewed. White count 10.4, hemoglobin 9.5, hematocrit 30.7, platelet count is a 159,000. Sodium 134, potassium 4.3, chloride 98, CO2 of 33, anion gap 3. BUN and creatinine were 9 and 0.54. Calcium 8.3. The rest of the labs look okay. Influenza studies were negative. A CT scan is reviewed. Medications are reviewed. Currently, he is on Maxipime, updrafts, and vancomycin. The other medications are all appropriate. ASSESSMENT: 1. Acute hypoxemic respiratory failure, possibly secondary to chronic aspiration pneumonia versus chemotherapy induced acute lung injury versus lymphangitic carcinomatosis. 2. History of esophageal cancer diagnosed back in 2016, status post esophagectomy with gastric pull-through surgery in 2017, followed by chemoradiation. 3. History of recurrent esophageal cancer with metastases to the stomach and L3 spine. 4. History of gastroesophageal reflux disease. 5. Exercise-induced asthma. 6. Probable chronic aspiration syndrome. PLAN: The patient is under aspiration precautions. Head of bed will be maintained at all times. The patient is currently on Maxipime and vancomycin. ID is seeing the patient. He is on updrafts as well. His overall prognosis is poor. We did move him here to the ICU because of deterioration last night. Additional recommendations and suggestions forthcoming. He is maintained on the AIRVO. The charge nurse did talk him about the intubation and mechanical ventilation. I believe he would also agree to a tracheostomy if it came to that. Again, his prognosis is poor in my opinion. A bronchoscopy might help elucidate was going on his lungs, but I think would end up requiring him to be intubated and mechanically ventilated. We will continue to follow. MMODL / IJN: [id number] /
[2018-12-26] MEDS: CEFEPIME 2 GM in SODIUM CHLORIDE 0.9% 100 ML IVPB SCH ×3 (09:35→23:23)
[2018-12-26] MEDS: HEPARIN SODIUM,PORCINE 5,000 UNIT/ML 1 ML VIAL SQ SCH ×3 (09:37→23:22)
[2018-12-26] MEDS: SENNOSIDES-DOCUSATE SODIUM 1 EACH TAB PO SCH ×2 (09:37→20:38)
[2018-12-26] MEDS: FAMOTIDINE 20 MG TAB PO SCH ×2 (09:37→20:32)
--- NOTE | 2018-12-26 10:06 | P.PN ---
Subjective Progress Note Date: 12/26/18 This is a 48-year-old gentleman with history of esophageal cancer, completed radiation and chemotherapy, history of gastric pull-through, recent biopsy reporting adenocarcinoma with chemotherapy resumed. T-max on admission 100.3, WBC 14.6, neutrophils normal, hemoglobin ,platelets, electrolytes essentially normal.Currently T-max 100.2, WBC improving, down to 12.4.. Maintained on IV fluid hydration of D5.45 MLS per hour, cefepime, vancomycin. Speech consulted to evaluate for silent aspiration(prior history of PEG tube which has been discontinued). Chest x-ray reported new multifocal airspace disease possible multifocal pneumonia versus pulmonary edema. F/U chest x-ray this morning with no significant change. On admission patient had been satting high 90s on room air. During the afternoon patient sats decreased to 93-94%. Last night, patient desatted to 70s to 80s %, A teamed called, received a dose of Lasix 40 IV push and placed on BiPAP. BiPAP weaned off currently on 15 L high flow nasal cannula this morning, maintaining O2 sats of 93%. No further nausea vomiting or diarrhea. Tolerating clear liquid diet. 12/26/2018 Tested negative for influenza, CT negative for PE, received a couple doses of Lasix for potential pulmonary edema, Swallow evaluation per speech therapy with no aspiration observed, universal aspiration precautions recommended..During the night, patient desatted, did not respond to BiPAP, transferred to ICU and placed on Airvo. Maintaining O2 sats of low 90s on 80% airvo. Maintained on IV antibiotics of vancomycin, Maxipime as per infectious disease. T-max 100.4,WBC WNL. Preliminary blood cultures negative at 24 hours .Continues on nebulized bronchodilators. Feels better this morning. Objective - Vital Signs Vital signs: Vital Signs Temp 100 F H 12/26/18 05:00 Pulse 98 12/26/18 07:46 Resp 21 12/26/18 07:00 BP 94/57 12/26/18 07:00 Pulse Ox 92 L 12/26/18 07:46 Intake & Output 12/25/18 12/26/18 12/26/18 18:59 06:59 18:59 Intake Total 118 660 10 Output Total 1150 Balance 118 -490 10 Weight 78.9 kg Intake: IV 660 10 .9 60 10 Cefepime 2 gm In Sodium 100 Chloride 0.9% 100 ml @ 200 mls/hr IVPB Q8HR [facility] Rx#:[id number] Vancomycin 1,250 mg In 500 Sodium Chloride 0.9% 250 ml @ 125 mls/hr IVPB Q8H [facility] Rx#:[id number] Oral 118 Output: Urine 1150 Other: Voiding Method Urinal Urinal - Exam VITAL SIGNS: As above GENERAL: Sitting up in bed, no acute distress, on AIRVO HEENT: Conjunctivae normal. eyes normal. NECK: Supple, No thyroid enlargement. No LNs CARDIOVASCULAR: S1, S2 regular. Mild tachycardia, No murmur RESPIRATION: Breath sounds diminished in the bases. Scattered Coarse rhonchi with fine bibasilar crackles, greater in the right. ABDOMEN: Soft, nontender . No guarding. no masses palpable. Bowel sounds heard. LEGS: No edema. no swelling, no cyanosis, no clubbing. PSYCHIATRY: Alert and oriented -3, mood and affect normal. NERVOUS SYSTEM: Cranial N 2-12 grossly normal. Moves all 4 limbs. Diffuse weakness No focal deficits. Skin: no lesions, no rash - Labs CBC & Chem 7: 12/26/18 04:07 12/26/18 04:07 Labs: Abnormal Lab Results - Last 24 Hours (Table) 12/25/18 12/26/18 12/26/18 Range/Units 19:07 04:07 04:07 RBC 3.29 L (4.30-5.90) m/uL Hgb 9.5 L (13.0-17.5) gm/dL Hct 30.7 L (39.0-53.0) % MCHC 30.9 L (31.0-37.0) g/dL RDW 17.5 H (11.5-15.5) % Neutrophils # 9.1 H (1.3-7.7) k/uL Lymphocytes # 0.8 L (1.0-4.8) k/uL Sodium 134 L (137-145) mmol/L Carbon Dioxide 33 H (22-30) mmol/L Creatinine 0.54 L (0.66-1.25) mg/dL Glucose 109 H (74-99) mg/dL POC Glucose (mg/dL) 147 H (75-99) mg/dL Calcium 8.3 L (8.4-10.2) mg/dL ALT 17 L (21-72) U/L Total Protein 5.5 L (6.3-8.2) g/dL Albumin 2.9 L (3.5-5.0) g/dL Microbiology - Last 24 Hours (Table) 12/24/18 11:30 Blood Culture - Preliminary Blood No Growth after 24 hours 12/24/18 09:40 Blood Culture - Preliminary Blood No Growth after 24 hours Assessment and Plan Assessment: -Acute Hypoxic respiratory failure secondary to chronic aspiration pneumonia, possible chemotherapy induced injury, possibly metastatic-lymphangitic -History of esophageal cancer with esophagectomy and gastric pull-through, status post chemo therapy and radiation. Recurrent esophageal cancer, Recent biopsy reporting adenocarcinoma with metastases to L3 spine and to the stomach, chemotherapy resumed. -Fevers, -Leukocytosis, possibly infectious. -Exercise-induced asthma Plan: Continue current medication regime ,monitoring and symptomatic treatment. Maintain nebulized bronchodilators, antibiotics . Follow cultures closely. Invasive Cardiologist/pulmonary discussing potential bronchoscopy with intubation/tracheostomy being discussed with patient. Prognosis guarded given multiple complex medical issues. The impression and plan of care has been dictated as directed. : I performed a history and examination of this patient, discussed the same with the dictator. I agree with the dictator's note ,documented as a scribe. Any additional findings or plans will be noted. Time taken: 35 minutes
--- NOTE | 2018-12-26 12:24 | P.PN ---
Subjective Progress Note Date: 12/26/18 Principal diagnosis: Hypoxia fever Patient has been transferred to ICU overnight for worsening hypoxia. Diuresis ordered per pulm and BNP monitoring. Objective - Vital Signs Vital signs: Vital Signs Temp 99.6 F 12/26/18 08:00 Pulse 100 12/26/18 11:50 Resp 19 12/26/18 11:00 BP 103/64 12/26/18 11:00 Pulse Ox 94 L 12/26/18 11:39 Intake & Output 12/25/18 12/26/18 12/26/18 18:59 06:59 18:59 Intake Total 118 660 250 Output Total 1150 500 Balance 118 -490 -250 Weight 78.9 kg Intake: IV 660 50 .9 60 50 Cefepime 2 gm In Sodium 100 Chloride 0.9% 100 ml @ 200 mls/hr IVPB Q8HR [facility] Rx#:[id number] Vancomycin 1,250 mg In 500 Sodium Chloride 0.9% 250 ml @ 125 mls/hr IVPB Q8H [facility] Rx#:[id number] Intake, IV Titration 100 Amount Cefepime 2 gm In Sodium 100 Chloride 0.9% 100 ml @ 200 mls/hr IVPB Q8HR [facility] Rx#:[id number] Oral 118 100 Output: Urine 1150 500 Other: Voiding Method Urinal Urinal Urinal # Voids 1 - Exam General: Alert and Oriented x3, mod distress Head: Normocytic, Atraumatic Neck: Supple Mouth: No Lesions, No Thrush Eyes: Non-sclerotic No Palpable cervical, supraclavicular, axillary adenopathy Heart: Tachy Lungs:Diminished throughout , increased respiratory effort noted Abdomen: Soft, Non-Distended, Non-Tended, BSx4 Extremities: No Edema, Equal Strength Neurological: No Focal Defects: No sensory or motor deficits noted Psych: Calm and cooperative - Labs CBC & Chem 7: 12/26/18 04:07 12/26/18 04:07 Labs: Abnormal Lab Results - Last 24 Hours (Table) 12/25/18 12/26/18 12/26/18 Range/Units 19:07 04:07 04:07 RBC 3.29 L (4.30-5.90) m/uL Hgb 9.5 L (13.0-17.5) gm/dL Hct 30.7 L (39.0-53.0) % MCHC 30.9 L (31.0-37.0) g/dL RDW 17.5 H (11.5-15.5) % Neutrophils # 9.1 H (1.3-7.7) k/uL Lymphocytes # 0.8 L (1.0-4.8) k/uL Sodium 134 L (137-145) mmol/L Carbon Dioxide 33 H (22-30) mmol/L Creatinine 0.54 L (0.66-1.25) mg/dL Glucose 109 H (74-99) mg/dL POC Glucose (mg/dL) 147 H (75-99) mg/dL Calcium 8.3 L (8.4-10.2) mg/dL ALT 17 L (21-72) U/L Total Protein 5.5 L (6.3-8.2) g/dL Albumin 2.9 L (3.5-5.0) g/dL Microbiology - Last 24 Hours (Table) 12/24/18 09:40 Blood Culture - Preliminary Blood No Growth after 48 hours 12/24/18 11:30 Blood Culture - Preliminary Blood No Growth after 24 hours Assessment and Plan Plan: Assessment and Plan: Febrile on Chemotherapy: - Reeves Culture - Infectious Disease Consultation - Broad Spectrum antibiotics, concern for possible aspiration, swallow evaluation - Chest Xray Esophageal Cancer: Recurrent: - Currently on Chemotherapy with primary Oncologist Dr. Lockwood - He was due for chemo yesterday but did not feel well so did not receive - Treatment on hold until acute situation resolves Acute Hypoxic Respiratory Failure: Worsening - Component of Aspiration versus pneumonia versus lymphangenic spread - Chest xray ordered - Pulmonary consulted CT chest reviewd Plan: - ICU and PUlm Care - Diuresis per ICU and Pulm - Aggressive Supportive Care CBC and CMP daily
[2018-12-26] MEDS: VANCOMYCIN 1,500 MG in SODIUM CHLORIDE 0.9% 250 ML IVPB SCH ×2 (15:44→23:23)
[2018-12-26] MEDS: methylPREDNISolone SOD SUCCI 125 MG/2 ML VIAL IV SCH ×2 (19:01→23:22)
[2018-12-26] MEDS: traZODone HCL 50 MG TAB PO SCH (20:32)
[2018-12-26] MEDS: HYDROmorphone 2 MG TAB PO PRN (21:05)
--- NOTE | 2018-12-26 22:29 | P.PN ---
Subjective Progress Note Date: 12/26/18 48-year-old male who is known history of esophageal cancer status post the gastric pull-through procedure. Has completed his original course of chemotherapy and radiation therapy. Was having increasing difficulties and recent biopsies continue to show evidence of adenocarcinoma. He is receiving further courses of chemotherapy at this time. He however now presents to hospital with fever of 103 with chills and rigors and feeling poorly. He has minimal pulmonary symptoms with some cough without much sputum production and no hemoptysis. He relates since coming to Hospital his fever and chills are starting to improve. 12/25/2018 Does feel quite poorly overall. Status has worsened he is more short of breath feels worse today. Requiring increasing amounts of oxygen. Patient still feels very poorly. 12/26/2018 patient's feeling better today off of BiPAP and on Airvo it's much more comfortable and is less short of breath. The BiPAP positive pressure causing nausea and emesis, now improved. Objective - Vital Signs Vital signs: Vital Signs Temp 99.3 F 12/26/18 16:00 Pulse 116 H 12/26/18 19:59 Resp 19 12/26/18 19:00 BP 99/64 12/26/18 19:00 Pulse Ox 93 L 12/26/18 21:16 Intake & Output 12/26/18 12/26/18 12/27/18 06:59 18:59 06:59 Intake Total 660 1295 10 Output Total 1150 800 650 Balance -490 495 -640 Weight 78.9 kg Intake: IV 660 470 10 .9 60 120 10 Cefepime 2 gm In Sodium 100 100 Chloride 0.9% 100 ml @ 200 mls/hr IVPB Q8HR [facility] Rx#:[id number] Vancomycin 1,250 mg In 500 250 Sodium Chloride 0.9% 250 ml @ 125 mls/hr IVPB Q8H [facility] Rx#:[id number] Intake, IV Titration 100 Amount Cefepime 2 gm In Sodium 100 Chloride 0.9% 100 ml @ 200 mls/hr IVPB Q8HR [facility] Rx#:[id number] Oral 725 Output: Urine 1150 500 650 Emesis 300 Other: Voiding Method Urinal Urinal # Voids 1 - Exam 48-year-old male feeling improved today less short of breath HEENT: Anicteric conjunctiva are pink and moist nasal mucosa grossly intact without significant lesions, there is no thrush. Neck: The neck is supple without significant lymphadenopathy or thyromegaly. Lungs: Symmetrical air entry is noted few basilar crackles few expiratory wheezes no bronchial sounds. Heart: Regular rate and rhythm with an audible S1-S2, no S3 no S4. There is no significant murmur click or rub, PMI was nondisplaced. Abdomen: Positive bowel sounds soft and nontender without palpable masses or organomegaly. There was no guarding or rebound. Prior PEG tube site is well- healed Extremities: The upper extremities have excellent pulses they are symmetric, no significant petechiae or telangiectasia. No splinter hemorrhages were noted. The lower extremities are free from significant edema. The peripheral pulses were 2+ and symmetric. Evidence of muscular wasting Neuro:feeling better today - Labs CBC & Chem 7: 12/26/18 04:07 12/26/18 04:07 Labs: Abnormal Lab Results - Last 24 Hours (Table) 12/26/18 12/26/18 Range/Units 04:07 04:07 RBC 3.29 L (4.30-5.90) m/uL Hgb 9.5 L (13.0-17.5) gm/dL Hct 30.7 L (39.0-53.0) % MCHC 30.9 L (31.0-37.0) g/dL RDW 17.5 H (11.5-15.5) % Neutrophils # 9.1 H (1.3-7.7) k/uL Lymphocytes # 0.8 L (1.0-4.8) k/uL Sodium 134 L (137-145) mmol/L Carbon Dioxide 33 H (22-30) mmol/L Creatinine 0.54 L (0.66-1.25) mg/dL Glucose 109 H (74-99) mg/dL Calcium 8.3 L (8.4-10.2) mg/dL ALT 17 L (21-72) U/L Total Protein 5.5 L (6.3-8.2) g/dL Albumin 2.9 L (3.5-5.0) g/dL Microbiology - Last 24 Hours (Table) 12/24/18 11:30 Blood Culture - Preliminary Blood No Growth after 48 hours 12/24/18 09:40 Blood Culture - Preliminary Blood No Growth after 48 hours Laboratory Results WBC 10.4 k/uL (3.8-10.6) 12/26/18 04:07 RBC 3.29 m/uL (4.30-5.90) L 12/26/18 04:07 Hgb 9.5 gm/dL (13.0-17.5) L 12/26/18 04:07 Hct 30.7 % (39.0-53.0) L 12/26/18 04:07 MCV 93.2 fL (80.0-100.0) 12/26/18 04:07 MCH 28.8 pg (25.0-35.0) 12/26/18 04:07 MCHC 30.9 g/dL (31.0-37.0) L 12/26/18 04:07 RDW 17.5 % (11.5-15.5) H 12/26/18 04:07 Plt Count 159 k/uL (150-450) 12/26/18 04:07 Neutrophils % 88 % 12/26/18 04:07 Lymphocytes % 7 % 12/26/18 04:07 Monocytes % 2 % 12/26/18 04:07 Eosinophils % 2 % 12/26/18 04:07 Basophils % 0 % 12/26/18 04:07 Neutrophils # 9.1 k/uL (1.3-7.7) H 12/26/18 04:07 Lymphocytes # 0.8 k/uL (1.0-4.8) L 12/26/18 04:07 Monocytes # 0.2 k/uL (0-1.0) 12/26/18 04:07 Eosinophils # 0.2 k/uL (0-0.7) 12/26/18 04:07 Basophils # 0.0 k/uL (0-0.2) 12/26/18 04:07 Hypochromasia Slight 12/26/18 04:07 Poikilocytosis Slight 12/24/18 10:00 Anisocytosis Slight 12/26/18 04:07 PT 10.7 sec (9.0-12.0) 12/24/18 10:00 INR 1.0 (<1.2) 12/24/18 10:00 APTT 25.3 sec (22.0-30.0) 12/24/18 10:00 Sodium 134 mmol/L (137-145) L 12/26/18 04:07 Potassium 4.3 mmol/L (3.5-5.1) 12/26/18 04:07 Chloride 98 mmol/L (98-107) 12/26/18 04:07 Carbon Dioxide 33 mmol/L (22-30) H 12/26/18 04:07 Anion Gap 3 mmol/L 12/26/18 04:07 BUN 9 mg/dL (9-20) 12/26/18 04:07 Creatinine 0.54 mg/dL (0.66-1.25) L 12/26/18 04:07 Est GFR (CKD-EPI)AfAm >90 (>60 ml/min/1.73 sqM) 12/26/18 04:07 Est GFR (CKD-EPI)NonAf >90 (>60 ml/min/1.73 sqM) 12/26/18 04:07 Glucose 109 mg/dL (74-99) H 12/26/18 04:07 POC Glucose (mg/dL) 147 mg/dL (75-99) H 12/25/18 19:07 POC Glu Chip Unloader Lois Sol 12/25/18 19:07 Calcium 8.3 mg/dL (8.4-10.2) L 12/26/18 04:07 Magnesium 2.1 mg/dL (1.6-2.3) 12/26/18 04:07 Total Bilirubin 0.7 mg/dL (0.2-1.3) 12/26/18 04:07 AST 35 U/L (17-59) 12/26/18 04:07 ALT 17 U/L (21-72) L 12/26/18 04:07 Alkaline Phosphatase 108 U/L (38-126) 12/26/18 04:07 NT-Pro-B Natriuret Pep 787 pg/mL 12/25/18 06:37 Total Protein 5.5 g/dL (6.3-8.2) L 12/26/18 04:07 Albumin 2.9 g/dL (3.5-5.0) L 12/26/18 04:07 Urine Color Yellow 12/24/18 11:45 Urine Appearance Clear (Clear) 12/24/18 11:45 Urine pH 7.0 (5.0-8.0) 12/24/18 11:45 Ur Specific Corn[place] 1.008 (1.001-1.035) 12/24/18 11:45 Urine Protein Trace (Negative) H 12/24/18 11:45 Urine Glucose (UA) Negative (Negative) 12/24/18 11:45 Urine Ketones Negative (Negative) 12/24/18 11:45 Urine Blood Negative (Negative) 12/24/18 11:45 Urine Nitrite Negative (Negative) 12/24/18 11:45 Urine Bilirubin Negative (Negative) 12/24/18 11:45 Urine Urobilinogen 2.0 mg/dL (<2.0) 12/24/18 11:45 Ur Leukocyte Esterase Negative (Negative) 12/24/18 11:45 Vancomycin Trough 13.3 ug/mL 12/26/18 04:07 Influenza Type A RNA Not Detected (Not Detectd) 12/24/18 10:15 Influenza Type B (PCR) Not Detected (Not Detectd) 12/24/18 10:15 Microbiology 12/24/18 11:30 Blood Blood Culture - Preliminary No Growth after 48 hours 12/24/18 09:40 Blood Blood Culture - Preliminary No Growth after 48 hours Assessment and Plan (1) Esophageal cancer Current Visit: No Status: Acute Code(s): C15.9 - MALIGNANT NEOPLASM OF ESOPHAGUS, UNSPECIFIED SNOMED Code(s): 354808818 (2) Fever Narrative/Plan: 48 -year-old male presents to Hospital feeling poorly with onset of increasing fever malaise and chills. The patient has a known history of es ophageal cancer, status post gastric pull-through who has already received his original course of chemotherapy and radiation. But is now receiving further chemotherapy with evidence of ongoing adenocarcinoma. The patient is starting to feel somewhat better since admission and initiation of fluids and antibiotic therapy. The patient has had imaging studies including the computed tomography scan that is revealing some ongoing difficulties with pulmonary infiltrates. Patient is currently receiving cefepime and vancomycin and tolerating that well. We'll need to have further cultures to help further define his antibiotic therapy. He however is not neutropenic at this time. Would like to have the speech pathologist to evaluate the possibility of silent aspiration or reflux that could be causing the current pulmonary changes by computed tomography scan. Leukocytosis appears to be in the bases of the current infectious process. 12/25/2018 patient is had worsening of his status. Respiratory status is worsening. Concern as to ongoing aspiration as etiology for his current respiratory distress and pulmonary changes. CT angiogram requested. Pulmonary critical care evaluating There are multiple other concerns including lymphangitic spread of his malignancy, acute lung injury, acute lung injury from chemotherapy. We've asked for speech therapy to evaluate if he is having ongoing significant aspiration. Fever has responded antibiotic therapy await cultures to further direct anti biotic therapy. 12/26/2018 patient's respiratory status is now stabilized on high flow oxygen. His nausea is improved no further emesis. Ongoing evaluation as to the etiology of his pulmonary infiltrates, however ongoing aspiration is of great concern. His fevers improved. We'll continue current antibiotic therapy while evaluations continue. Current Visit: Yes Status: Acute Code(s): R50.9 - FEVER, UNSPECIFIED SNOMED Code(s): 460135676 (3) Pulmonary infiltrates Current Visit: Yes Status: Acute Code(s): R91.8 - OTHER NONSPECIFIC ABNORMAL FINDING OF LUNG FIELD SNOMED Code(s): 397081238
[2018-12-27] MEDS: IPRATROPIUM-ALBUTEROL 3 ML NEB INHALATION SCH ×6 (03:07→23:11)
[2018-12-27 05:11] LABS: Anisocytosis Slight; Basophils % (A) 0 %; Eosinophils % (A) 0 %; HCT 32.4 % (39.0-53.0); Hypochromasia Moderate; Lymphocytes # (A) 0.3 k/uL (1.0-4.8); Lymphocytes % (A) 4 %; MCH 29.2 pg (25.0-35.0); Mean Platelet Volume 7.6; Monocytes # (A) 0.1 k/uL (0-1.0); Monocytes % (A) 1 %; Neutrophils # (A) 9.1 k/uL (1.3-7.7); Neutrophils % (A) 95 %; Platelet Count 167 k/uL (150-450); Poikilocytosis Slight; RBC 3.44 m/uL (4.30-5.90); RDW 17.6 % (11.5-15.5); WBC 9.6 k/uL (3.8-10.6)
[2018-12-27] MEDS: HYDROmorphone 2 MG TAB PO PRN ×2 (05:13→13:29)
[2018-12-27 05:27] LABS: ALT 19 U/L (21-72); AST 32 U/L (17-59); African American GFR (CKD) >90 (>60 ml/min/1.73 sqM); Albumin 2.9 g/dL (3.5-5.0); Alkaline Phosphatase 117 U/L (38-126); Anion Gap 5 mmol/L; Blood Urea Nitrogen 11 mg/dL (9-20); Calcium 8.6 mg/dL (8.4-10.2); Carbon Dioxide 31 mmol/L (22-30); Chloride 102 mmol/L (98-107); Glucose 139 mg/dL (74-99); Magnesium 2.4 mg/dL (1.6-2.3); Sodium 138 mmol/L (137-145); Total Bilirubin 0.5 mg/dL (0.2-1.3); Total Protein 5.7 g/dL (6.3-8.2)
--- NOTE | 2018-12-27 06:32 | XR ---
EXAMINATION TYPE: XR chest 1V portable DATE OF EXAM: 12/27/2018 HISTORY: SOB. REFERENCE: Previous study dated 12/25/2018. FINDINGS: The right internal jugular catheter is in place. Its tip is at the cavoatrial junction. Artifact projects over the left upper chest. There is worsening alveolar and interstitial airspace disease present bilaterally. There are small ef fusions. The heart is mildly enlarged. IMPRESSION: WORSENING INTERSTITIAL AND AIRSPACE DISEASE MAY REFLECT PULMONARY EDEMA OR ATYPICAL PNEUMONIA.
[2018-12-27] MEDS: VANCOMYCIN 1,500 MG in SODIUM CHLORIDE 0.9% 250 ML IVPB SCH ×3 (07:00→22:36)
[2018-12-27] MEDS: PANTOPRAZOLE 40 MG TABLET PO SCH ×2 (07:01→17:34)
[2018-12-27] MEDS: CEFEPIME 2 GM in SODIUM CHLORIDE 0.9% 100 ML IVPB SCH ×3 (07:01→23:59)
[2018-12-27] MEDS: SENNOSIDES-DOCUSATE SODIUM 1 EACH TAB PO SCH ×2 (08:36→20:44)
[2018-12-27] MEDS: methylPREDNISolone SOD SUCCI 125 MG/2 ML VIAL IV SCH ×3 (08:36→23:57)
[2018-12-27] MEDS: FAMOTIDINE 20 MG TAB PO SCH ×2 (08:36→20:45)
[2018-12-27] MEDS: HEPARIN SODIUM,PORCINE 5,000 UNIT/ML 1 ML VIAL SQ SCH ×3 (08:36→23:57)
--- NOTE | 2018-12-27 10:24 | PN ---
PROGRESS NOTE DATE OF SERVICE: 12/27/2018 Mr. Pearce is a 48-year-old gentleman with a history of esophageal cancer. He is status post esophagectomy with gastric pull-through surgery back in [address] Poncho Mack at [facility]. Unfortunately, the patient has developed recurrence of his cancer in the stomach and also the L3 spine. He was admitted with a diagnosis of worsening respiratory status, thought to be secondary to aspiration. Another possibility would be lymphangitic carcinomatosis versus chemotherapy induced lung injury. Anyway, the patient developed worsening respiratory status on the floor. He was moved to the ICU a couple days ago. He could not tolerate BiPAP. He is currently on AIRVO at 60 L/minute with an estimated FiO2 of 90%. We did keep him n.p.o. He was seen by Oncology and they thought he might have chemotherapy induced acute lung injury and started him on steroids. Since that time, he seems to be doing a bit better. Yesterday, we made him n.p.o. because he was having chronic aspiration. He remains on vancomycin and Maxipime. His O2 as mentioned above. He is on a 0.9 IV at KVO. We are going to increase that to 75 mL an hour. I told the nurse that we could start feeding Robe again but to go slow with clear liquids or full liquid diet. The patient himself thinks he is feeling better. PHYSICAL EXAMINATION: VITAL SIGNS: Current vital signs include temperature 98, heart rate 95, respiratory rate 20, blood pressure 102/70, mean 80 and saturations in the mid 90s. Appears in no acute distress. Mildly tachypneic. No audible wheezing. No conversational dyspnea. AIRVO cannula in place. HEENT examination is grossly unremarkable. NECK: Supple. Full range of motion. No adenopathy. Cardiovascular examination reveals regular rhythm rate. S1, S2 normal. Heart rate 95. LUNGS: Reveal diffuse coarse rhonchi and crackles. Breath sounds equal bilaterally but diminished throughout. He is mildly restricted in his breathing. ABDOMEN: Soft. Bowel sounds are heard. EXTREMITIES are intact. No cyanosis, clubbing, or edema. SKIN without rash. NEUROLOGIC examination is brief but nonfocal. LABORATORY DATA: White count 9.6, hemoglobin 10, hematocrit 32.4, platelet count normal. Sodium 138, potassium 4, chloride 102, CO2 31, anion gap is 5, BUN and creatinine were 11 and 0.43. Magnesium 2.4, ALT 19. The rest of his labs look okay. Microbiologic studies including blood and sputum are negative. Chest x-ray shows worsening bilateral infiltrates. Medications are reviewed. Everything seems to be appropriate. He is on Solu-Medrol 60 mg q.8. He is on a fentanyl patch. He is getting cefepime and vancomycin. He is on breathing treatments. ASSESSMENT: 1. Acute hypoxemic respiratory failure, possibly secondary to either chronic aspiration pneumonia versus chemotherapy induced acute lung injury versus lymphangitic carcinomatosis. 2. History of esophageal cancer diagnosed back in 2016, status post esophagectomy with gastric pull-through surgery in 2017 followed by chemo radiation. 3. History of recurrent esophageal cancer with METS to the stomach and L3 spine. 4. History of gastroesophageal reflux disease. 5. History of exercise-induced asthma. 6. Probable chronic aspiration syndrome. PLAN: We will attempt to feed the patient again. Will increase a 0.9 IV to 75 mL an hour. He will remain on vancomycin and Maxipime. He is on Solu-Medrol 60 mg q.8h. No additional recommendations are made. He is currently on the AIRVO. Clinically, he feels better although physiologically he is no better. Additional recommendations and suggestions are forthcoming. Prognosis is guarded. MMODL / IJN: [id number] /
[2018-12-27] MEDS: SODIUM CHLORIDE 0.9% 1,000 ML IV SCH ×2 (11:26→23:57)
--- NOTE | 2018-12-27 12:06 | P.PN ---
Subjective This is a 48-year-old gentleman with history of esophageal cancer, completed radiation and chemotherapy, history of gastric pull-through, recent biopsy reporting adenocarcinoma with chemotherapy resumed. T-max on admission 100.3, WBC 14.6, neutrophils normal, hemoglobin ,platelets, electrolytes essentially normal.Currently T-max 100.2, WBC improving, down to 12.4.. Maintained on IV fluid hydration of D5.45 MLS per hour, cefepime, vancomycin. Speech consulted to evaluate for silent aspiration(prior history of PEG tube which has been discontinued). Chest x-ray reported new multifocal airspace disease possible multifocal pneumonia versus pulmonary edema. F/U chest x-ray this morning with no significant change. On admission patient had been satting high 90s on room air. During the afternoon patient sats decreased to 93-94%. Last night, patient desatted to 70s to 80s %, A teamed called, received a dose of Lasix 40 IV push and placed on BiPAP. BiPAP weaned off currently on 15 L high flow nasal cannula this morning, maintaining O2 sats of 93%. No further nausea vomiting or diarrhea. Tolerating clear liquid diet. 12/26/2018 Tested negative for influenza, CT negative for PE, received a couple doses of Lasix for potential pulmonary edema, Swallow evaluation per speech therapy with no aspiration observed, universal aspiration precautions recommended..During the night, patient desatted, did not respond to BiPAP, transferred to ICU and placed on Airvo. Maintaining O2 sats of low 90s on 80% airvo. Maintained on IV antibiotics of vancomycin, Maxipime as per infectious disease. T-max 100.4,WBC WNL. Preliminary blood cultures negative at 24 hours .Continues on nebulized bronchodilators. Feels better this morning. Above notes per nurse practitioner. 12/27/2018: She remains on high flow nasal cannula oxygen. Pulse ox is 92%. He remains on IV vancomycin plus Maxipime for antibiotic coverage. Solu-Medrol was started yesterday and seems to help. He remains nothing by mouth for suspected chronic aspiration. His is at bedside. Chest x-ray today shows worsening interstitial airspace disease. Clinically he feels better. Staff report he is doing better. Objective - Vital Signs Vital signs: Vital Signs Temp 98.0 F 12/27/18 08:00 Pulse 91 12/27/18 11:45 Resp 23 12/27/18 11:00 BP 96/79 12/27/18 11:00 Pulse Ox 92 L 12/27/18 11:07 Intake & Output 12/26/18 12/27/18 12/27/18 18:59 06:59 18:59 Intake Total 1295 470 595 Output Total 800 1250 0 Balance 495 -780 595 Weight 78 kg Intake: IV 470 470 595 .9 120 120 245 Cefepime 2 gm In Sodium 100 100 100 Chloride 0.9% 100 ml @ 200 mls/hr IVPB Q8HR [facility] Rx#:[id number] Vancomycin 1,250 mg In 250 250 250 Sodium Chloride 0.9% 250 ml @ 125 mls/hr IVPB Q8H [facility] Rx#:[id number] Intake, IV Titration 100 Amount Cefepime 2 gm In Sodium 100 Chloride 0.9% 100 ml @ 200 mls/hr IVPB Q8HR [facility] Rx#:[id number] Oral 725 Output: Urine 500 1250 0 Emesis 300 Other: Voiding Method Urinal Urinal # Voids 1 - Exam General: The patient is awake and alert, in minimal distress with high flow oxygen in place. Neck: The neck is supple, there is no thyromegaly, lymphadenopathy, tenderness or JVD. Cardiovascular: S1S2 is normal, There is a regular rate and rhythm. No murmur, rub or gallop is appreciated. Respiratory: Lungs are coarse with the bilateral rhonchi. There is improved aeration of the left lung today. Breath sounds are generally diminished. Gastrointestinal: Soft, non-distended, non-tender abdomen without masses or organomegaly noted. There is no rebound or guarding present. Bowel sounds are unremarkable. Musculoskeletal: Normal ROM, no tenderness, There is no pedal edema. There is no calf tenderness or swelling. No cords were appreciated. Neurological: CN II-XII intact, there are no obvious motor or sensory deficits. Coordination appears grossly intact. Speech is normal. Skin: Skin is warm and dry and no rashes or lesions are noted. - Labs CBC & Chem 7: 12/27/18 04:45 12/27/18 04:45 Labs: Abnormal Lab Results - Last 24 Hours (Table) 12/27/18 12/27/18 Range/Units 04:45 04:45 RBC 3.44 L (4.30-5.90) m/uL Hgb 10.0 L (13.0-17.5) gm/dL Hct 32.4 L (39.0-53.0) % RDW 17.6 H (11.5-15.5) % Neutrophils # 9.1 H (1.3-7.7) k/uL Lymphocytes # 0.3 L (1.0-4.8) k/uL Carbon Dioxide 31 H (22-30) mmol/L Creatinine 0.43 L (0.66-1.25) mg/dL Glucose 139 H (74-99) mg/dL Magnesium 2.4 H (1.6-2.3) mg/dL ALT 19 L (21-72) U/L Total Protein 5.7 L (6.3-8.2) g/dL Albumin 2.9 L (3.5-5.0) g/dL Microbiology - Last 24 Hours (Table) 12/24/18 09:40 Blood Culture - Preliminary Blood No Growth after 72 hours 12/26/18 03:35 Sputum Culture - Preliminary Sputum 12/24/18 11:30 Blood Culture - Preliminary Blood No Growth after 48 hours Assessment and Plan (1) Acute respiratory failure with hypoxia Current Visit: Yes Status: Acute Code(s): J96.01 - ACUTE RESPIRATORY FAILURE WITH HYPOXIA SNOMED Code(s): 52760656 (2) Acute pneumonitis Current Visit: Yes Status: Acute Code(s): J18.9 - PNEUMONIA, UNSPECIFIED ORGANISM SNOMED Code(s): 482544114 (3) Aspiration pneumonia Current Visit: Yes Status: Acute Code(s): J69.0 - PNEUMONITIS DUE TO INHALATION OF FOOD AND VOMIT SNOMED Code(s): 071408927 (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 Wait on further recommendations from hematology/oncology., Infectious disease He'll be reevaluated in the next 24 hours.
--- NOTE | 2018-12-27 13:38 | P.PN ---
Subjective Progress Note Date: 12/27/18 The pt feels better subjectively, but FiO2 requirement continues to be high. he is tolerating clears. No obvious bleeding/f/n/v Objective - Vital Signs Vital signs: Vital Signs Temp 98.2 F 12/27/18 12:00 Pulse 101 H 12/27/18 13:00 Resp 21 12/27/18 13:00 BP 110/73 12/27/18 13:00 Pulse Ox 92 L 12/27/18 13:00 Intake & Output 12/26/18 12/27/18 12/27/18 18:59 06:59 18:59 Intake Total 1295 470 845 Output Total 800 1250 450 Balance 495 -780 395 Weight 78 kg Intake: IV 470 470 745 .9 120 120 395 Cefepime 2 gm In Sodium 100 100 100 Chloride 0.9% 100 ml @ 200 mls/hr IVPB Q8HR [facility] Rx#:[id number] Vancomycin 1,250 mg In 250 250 250 Sodium Chloride 0.9% 250 ml @ 125 mls/hr IVPB Q8H [facility] Rx#:[id number] Intake, IV Titration 100 Amount Cefepime 2 gm In Sodium 100 Chloride 0.9% 100 ml @ 200 mls/hr IVPB Q8HR [facility] Rx#:[id number] Oral 725 100 Output: Urine 500 1250 450 Emesis 300 Other: Voiding Method Urinal Urinal # Voids 1 - Constitutional General appearance: Present: no acute distress - EENT Eyes: Present: EOMI ENT: Present: hearing grossly normal, normal oropharynx - Respiratory Respiratory: bilateral: diminished, rales (R > L) - Cardiovascular Rhythm: regular Heart sounds: normal: S1, S2 - Gastrointestinal General gastrointestinal: Present: normal bowel sounds, soft - Integumentary Integumentary: Present: normal - Neurologic Neurologic: Present: CNII-XII intact - Musculoskeletal Musculoskeletal: Present: generalized weakness, strength equal bilaterally - Psychiatric Psychiatric: Present: A&O x's 3, appropriate affect - Labs CBC & Chem 7: 12/27/18 04:45 12/27/18 04:45 Labs: Abnormal Lab Results - Last 24 Hours (Table) 12/27/18 12/27/18 Range/Units 04:45 04:45 RBC 3.44 L (4.30-5.90) m/uL Hgb 10.0 L (13.0-17.5) gm/dL Hct 32.4 L (39.0-53.0) % RDW 17.6 H (11.5-15.5) % Neutrophils # 9.1 H (1.3-7.7) k/uL Lymphocytes # 0.3 L (1.0-4.8) k/uL Carbon Dioxide 31 H (22-30) mmol/L Creatinine 0.43 L (0.66-1.25) mg/dL Glucose 139 H (74-99) mg/dL Magnesium 2.4 H (1.6-2.3) mg/dL ALT 19 L (21-72) U/L Total Protein 5.7 L (6.3-8.2) g/dL Albumin 2.9 L (3.5-5.0) g/dL Microbiology - Last 24 Hours (Table) 12/24/18 09:40 Blood Culture - Preliminary Blood No Growth after 72 hours 12/26/18 03:35 Sputum Culture - Preliminary Sputum 12/24/18 11:30 Blood Culture - Preliminary Blood No Growth after 48 hours Assessment and Plan (1) Acute pneumonitis Narrative/Plan: The pt feels better, but FiO2 requirement is still high. CXR shows persistent b/l infiltrate with possibly progression. Thus fluid overload is less likely as the pt has had diuresis. Aspiration pneumonia is more likely, with chemo induced pneumonitis another possibility. At this time, it is not possible to dictinguish between the 2 , but the former is clinically more likely. In addition, pneumonitis with his regimen is overall rare. Case d/w pt, Nsg, and ID. Continue Abx, per ID. Continue steroids to cover for the latter possibility Current Visit: Yes Status: Acute Code(s): J18.9 - PNEUMONIA, UNSPECIFIED ORGANISM SNOMED Code(s): 246511530 (2) Acute respiratory failure with hypoxia Narrative/Plan: As above. Continue current management per Pulm Current Visit: Yes Status: Acute Code(s): J96.01 - ACUTE RESPIRATORY FAILURE WITH HYPOXIA SNOMED Code(s): 29897521 (3) Esophageal cancer Narrative/Plan: Treatment on hold till acute condition resolves sufficiently. If pt is not responding to current treatment, then lymphangitic spread will need to be considered Current Visit: No Status: Acute Code(s): C15.9 - MALIGNANT NEOPLASM OF [place], UNSPECIFIED SNOMED Code(s): 895466466
--- NOTE | 2018-12-27 17:03 | P.PN ---
Subjective Progress Note Date: 12/27/18 48-year-old male who is known history of esophageal cancer status post the gastric pull-through procedure. Has completed his original course of chemotherapy and radiation therapy. Was having increasing difficulties and recent biopsies continue to show evidence of adenocarcinoma. He is receiving further courses of chemotherapy at this time. He however now presents to hospital with fever of 103 with chills and rigors and feeling poorly. He has minimal pulmonary symptoms with some cough without much sputum production and no hemoptysis. He relates since coming to Hospital his fever and chills are starting to improve. 12/25/2018 Does feel quite poorly overall. Status has worsened he is more short of breath feels worse today. Requiring increasing amounts of oxygen. Patient still feels very poorly. 12/26/2018 patient's feeling better today off of BiPAP and on Airvo it's much more comfortable and is less short of breath. The BiPAP positive pressure causing nausea and emesis, now improved. 12/27/2018 patient has bouts of nausea which worsens the SOB. Denies fever ,Airvo is well tolerated. Objective - Vital Signs Vital signs: Vital Signs Temp 98.2 F 12/27/18 12:00 Pulse 100 12/27/18 15:00 Resp 21 12/27/18 15:00 BP 101/73 12/27/18 15:00 Pulse Ox 90 L 12/27/18 15:00 Intake & Output 12/26/18 12/27/18 12/27/18 18:59 06:59 18:59 Intake Total 5977 901 1732 Output Total 800 1250 850 Balance 495 -780 245 Weight 78 kg Intake: IV 470 470 995 .9 120 120 545 Cefepime 2 gm In Sodium 100 100 200 Chloride 0.9% 100 ml @ 200 mls/hr IVPB Q8HR [facility] Rx#:[id number] Vancomycin 1,250 mg In 250 250 250 Sodium Chloride 0.9% 250 ml @ 125 mls/hr IVPB Q8H [facility] Rx#:[id number] Intake, IV Titration 100 Amount Cefepime 2 gm In Sodium 100 Chloride 0.9% 100 ml @ 200 mls/hr IVPB Q8HR [facility] Rx#:[id number] Oral 725 100 Output: Urine 500 1250 850 Emesis 300 Other: Voiding Method Urinal Urinal # Voids 1 - Exam 48-year-old male feeling improved today less short of breath HEENT: Anicteric conjunctiva are pink and moist nasal mucosa grossly intact without significant lesions, there is no thrush. Neck: The neck is supple without significant lymphadenopathy or thyromegaly. Lungs: Symmetrical air entry is noted few basilar crackles few expiratory wheezes no bronchial sounds. Heart: Regular rate and rhythm with an audible S1-S2, no S3 no S4. There is no significant murmur click or rub, PMI was nondisplaced. Abdomen: Positive bowel sounds soft and nontender without palpable masses or organomegaly. There was no guarding or rebound. Prior PEG tube site is well- healed Extremities: The upper extremities have excellent pulses they are symmetric, no significant petechiae or telangiectasia. No splinter hemorrhages were noted. The lower extremities are free from significant edema. The peripheral pulses were 2+ and symmetric. Evidence of muscular wasting Neuro:feeling better today - Labs CBC & Chem 7: 12/27/18 04:45 12/27/18 04:45 Labs: Abnormal Lab Results - Last 24 Hours (Table) 12/27/18 12/27/18 Range/Units 04:45 04:45 RBC 3.44 L (4.30-5.90) m/uL Hgb 10.0 L (13.0-17.5) gm/dL Hct 32.4 L (39.0-53.0) % RDW 17.6 H (11.5-15.5) % Neutrophils # 9.1 H (1.3-7.7) k/uL Lymphocytes # 0.3 L (1.0-4.8) k/uL Carbon Dioxide 31 H (22-30) mmol/L Creatinine 0.43 L (0.66-1.25) mg/dL Glucose 139 H (74-99) mg/dL Magnesium 2.4 H (1.6-2.3) mg/dL ALT 19 L (21-72) U/L Total Protein 5.7 L (6.3-8.2) g/dL Albumin 2.9 L (3.5-5.0) g/dL Microbiology - Last 24 Hours (Table) 12/26/18 03:35 Gram Stain - Final Sputum Sputum Culture - Final 12/24/18 11:30 Blood Culture - Preliminary Blood No Growth after 72 hours 12/24/18 09:40 Blood Culture - Preliminary Blood No Growth after 72 hours Laboratory Results WBC 9.6 k/uL (3.8-10.6) 12/27/18 04:45 RBC 3.44 m/uL (4.30-5.90) L 12/27/18 04:45 Hgb 10.0 gm/dL (13.0-17.5) L 12/27/18 04:45 Hct 32.4 % (39.0-53.0) L 12/27/18 04:45 MCV 94.0 fL (80.0-100.0) 12/27/18 04:45 MCH 29.2 pg (25.0-35.0) 12/27/18 04:45 MCHC 31.0 g/dL (31.0-37.0) 12/27/18 04:45 RDW 17.6 % (11.5-15.5) H 12/27/18 04:45 Plt Count 167 k/uL (150-450) 12/27/18 04:45 Neutrophils % 95 % 12/27/18 04:45 Lymphocytes % 4 % 12/27/18 04:45 Monocytes % 1 % 12/27/18 04:45 Eosinophils % 0 % 12/27/18 04:45 Basophils % 0 % 12/27/18 04:45 Neutrophils # 9.1 k/uL (1.3-7.7) H 12/27/18 04:45 Lymphocytes # 0.3 k/uL (1.0-4.8) L 12/27/18 04:45 Monocytes # 0.1 k/uL (0-1.0) 12/27/18 04:45 Eosinophils # 0.0 k/uL (0-0.7) 12/27/18 04:45 Basophils # 0.0 k/uL (0-0.2) 12/27/18 04:45 Hypochromasia Moderate 12/27/18 04:45 Poikilocytosis Slight 12/27/18 04:45 Anisocytosis Slight 12/27/18 04:45 PT 10.7 sec (9.0-12.0) 12/24/18 10:00 INR 1.0 (<1.2) 12/24/18 10:00 APTT 25.3 sec (22.0-30.0) 12/24/18 10:00 Sodium 138 mmol/L (137-145) 12/27/18 04:45 Potassium 4.0 mmol/L (3.5-5.1) 12/27/18 04:45 Chloride 102 mmol/L (98-107) 12/27/18 04:45 Carbon Dioxide 31 mmol/L (22-30) H 12/27/18 04:45 Anion Gap 5 mmol/L 12/27/18 04:45 BUN 11 mg/dL (9-20) 12/27/18 04:45 Creatinine 0.43 mg/dL (0.66-1.25) L 12/27/18 04:45 Est GFR (CKD-EPI)AfAm >90 (>60 ml/min/1.73 sqM) 12/27/18 04:45 Est GFR (CKD-EPI)NonAf >90 (>60 ml/min/1.73 sqM) 12/27/18 04:45 Glucose 139 mg/dL (74-99) H 12/27/18 04:45 POC Glucose (mg/dL) 147 mg/dL (75-99) H 12/25/18 19:07 POC Glu Chest Painting Leader Lois Sol 12/25/18 19:07 Calcium 8.6 mg/dL (8.4-10.2) 12/27/18 04:45 Magnesium 2.4 mg/dL (1.6-2.3) H 12/27/18 04:45 Total Bilirubin 0.5 mg/dL (0.2-1.3) 12/27/18 04:45 AST 32 U/L (17-59) 12/27/18 04:45 ALT 19 U/L (21-72) L 12/27/18 04:45 Alkaline Phosphatase 117 U/L (38-126) 12/27/18 04:45 NT-Pro-B Natriuret Pep 787 pg/mL 12/25/18 06:37 Total Protein 5.7 g/dL (6.3-8.2) L 12/27/18 04:45 Albumin 2.9 g/dL (3.5-5.0) L 12/27/18 04:45 Urine Color Yellow 12/24/18 11:45 Urine Appearance Clear (Clear) 12/24/18 11:45 Urine pH 7.0 (5.0-8.0) 12/24/18 11:45 Ur Specific [place] 1.008 (1.001-1.035) 12/24/18 11:45 Urine Protein Trace (Negative) H 12/24/18 11:45 Urine Glucose (UA) Negative (Negative) 12/24/18 11:45 Urine Ketones Negative (Negative) 12/24/18 11:45 Urine Blood Negative (Negative) 12/24/18 11:45 Urine Nitrite Negative (Negative) 12/24/18 11:45 Urine Bilirubin Negative (Negative) 12/24/18 11:45 Urine Urobilinogen 2.0 mg/dL (<2.0) 12/24/18 11:45 Ur Leukocyte Esterase Negative (Negative) 12/24/18 11:45 Vancomycin Trough 13.3 ug/mL 12/26/18 04:07 Influenza Type A RNA Not Detected (Not Detectd) 12/24/18 10:15 Influenza Type B (PCR) Not Detected (Not Detectd) 12/24/18 10:15 Microbiology 12/26/18 03:35 Sputum Gram Stain - Final 12/26/18 03:35 Sputum Sputum Culture - Final 12/24/18 11:30 Blood Blood Culture - Preliminary No Growth after 72 hours 12/24/18 09:40 Blood Blood Culture - Preliminary No Growth after 72 hours Assessment and Plan (1) Esophageal cancer Current Visit: No Status: Acute Code(s): C15.9 - MALIGNANT NEOPLASM OF ESOPHAGUS, UNSPECIFIED SNOMED Code(s): 797146695 (2) Fever Narrative/Plan: 48 -year-old male presents to Hospital feeling poorly with onset of increasing fever malaise and chills. The patient has a known history of esophageal cancer, status post gastric pull-through who has already received his original course of chemotherapy and radiation. But is now receiving further chemotherapy with evidence of ongoing adenocarcinoma. The patient is starting to feel somewhat better since admission and initiation of fluids and antibiotic therapy. The patient has had imaging studies including the computed tomography scan that is revealing some ongoing difficulties with pulmonary infiltrates. Patient is currently receiving cefepime and vancomycin and tolerating that well. We'll need to have further cultures to help further define his antibiotic therapy. He however is not neutropenic at this time. Would like to have the speech pathologist to evaluate the possibility of silent aspiration or reflux that could be causing the current pulmonary changes by computed tomography scan. Leukocytosis appears to be in the bases of the current infectious process. 12/25/2018 patient is had worsening of his status. Respiratory status is worsening. Concern as to ongoing aspiration as etiology for his current respir atory distress and pulmonary changes. CT angiogram requested. Pulmonary critical care evaluating There are multiple other concerns including lymphangitic spread of his malignancy, acute lung injury, acute lung injury from chemotherapy. We've asked for speech therapy to evaluate if he is having ongoing significant aspiration. Fever has responded antibiotic therapy await cultures to further direct antibiotic therapy. 12/26/2018 patient's respiratory status is now stabilized on high flow oxygen. His nausea is improved no further emesis. Ongoing evaluation as to the etiology of his pulmonary infiltrates, however ongoing aspiration is of great concern. His fevers improved. We'll continue current antibiotic therapy while evaluations continue. December 27, 2018 patient is stable today. He is without other new acute complaints. Does have occasional waves of nausea which became more short of breath other than this he has no new complaints today. He is afebrile. Continues to struggle with his intake. We have asked for protein supplements to try to improve his strength. Current Visit: Yes Status: Acute Code(s): R50.9 - FEVER, UNSPECIFIED SNOMED Code(s): 602603136 (3) Pulmonary infiltrates Current Visit: Yes Status: Acute Code(s): R91.8 - OTHER NONSPECIFIC ABNORMAL FINDING OF LUNG FIELD SNOMED Code(s): 487102193
[2018-12-27] MEDS: SYMBICORT 160-4.5 MCG INHALER INHALATION SCH (19:28)
[2018-12-27] MEDS: traZODone HCL 50 MG TAB PO SCH ×2 (20:44→22:35)
[2018-12-28] MEDS: LORazepam 2 MG/ML INJ IV PRN ×3 (02:12→21:45)
[2018-12-28] MEDS: IPRATROPIUM-ALBUTEROL 3 ML NEB INHALATION SCH ×6 (03:12→23:16)
[2018-12-28 04:04] LABS: Anisocytosis Slight; Basophils % (A) 0 %; Eosinophils % (A) 0 %; HCT 34.4 % (39.0-53.0); HGB 10.8 gm/dL (13.0-17.5); Hypochromasia Moderate; Lymphocytes # (A) 0.6 k/uL (1.0-4.8); Lymphocytes % (A) 3 %; MCH 29.5 pg (25.0-35.0); MCHC 31.3 g/dL (31.0-37.0); MCV 94.3 fL (80.0-100.0); Mean Platelet Volume 7.6; Monocytes # (A) 0.4 k/uL (0-1.0); Monocytes % (A) 2 %; Neutrophils # (A) 17.1 k/uL (1.3-7.7); Neutrophils % (A) 95 %; Platelet Count 208 k/uL (150-450); Poikilocytosis Slight; RBC 3.65 m/uL (4.30-5.90); RDW 17.7 % (11.5-15.5); WBC 18.1 k/uL (3.8-10.6)
[2018-12-28 04:15] LABS: ALT 13 U/L (21-72); AST 33 U/L (17-59); African American GFR (CKD) >90 (>60 ml/min/1.73 sqM); Albumin 3.1 g/dL (3.5-5.0); Alkaline Phosphatase 134 U/L (38-126); Anion Gap 5 mmol/L; Blood Urea Nitrogen 13 mg/dL (9-20); Calcium 8.8 mg/dL (8.4-10.2); Carbon Dioxide 29 mmol/L (22-30); Chloride 105 mmol/L (98-107); Glucose 134 mg/dL (74-99); Magnesium 2.5 mg/dL (1.6-2.3); Potassium 4.1 mmol/L (3.5-5.1); Sodium 139 mmol/L (137-145); Total Bilirubin 0.4 mg/dL (0.2-1.3); Total Protein 5.9 g/dL (6.3-8.2)
[2018-12-28] MEDS ORDERED: VANCOMYCIN TROUGH DUE 1 EACH MISC MISCELLANE ONE (06:00)
--- NOTE | 2018-12-28 06:29 | XR ---
EXAMINATION TYPE: XR chest 1V portable DATE OF EXAM: 12/28/2018 HISTORY: SOB. REFERENCE: Previous study dated 12/27/2018. FINDINGS: Right internal jugular catheter remains in place, unchanged in appearance. There is worsening airspace disease present on the right. There may be mild worsening on the left. He art size is obscured. Both CP angles are blunted. IMPRESSION: WORSENING BIBASILAR AIRSPACE DISEASE.
[2018-12-28] MEDS: VANCOMYCIN 1,500 MG in SODIUM CHLORIDE 0.9% 250 ML IVPB SCH ×3 (06:40→22:00)
[2018-12-28 07:01] LABS: ABG Base Excess 5.3 mmol/L; ABG HCO3 29 mmol/L (21-25); ABG Oxygen Saturation 84.2 % (94-97); ABG PCO2 40 mmHg (35-45); ABG PH 7.47 (7.35-7.45); ABG TCO2 30 mmol/L (19-24); Allen Test Performed? Yes
[2018-12-28 07:03] LABS: ABG PO2 49 mmHg (83-108)
[2018-12-28] MEDS: PANTOPRAZOLE 40 MG TABLET PO SCH ×2 (07:31→16:41)
[2018-12-28] MEDS ORDERED: VANCOMYCIN 1,500 MG in SODIUM CHLORIDE 0.9% 250 ML IVPB ONE (08:15)
[2018-12-28] MEDS: HEPARIN SODIUM,PORCINE 5,000 UNIT/ML 1 ML VIAL SQ SCH ×3 (08:16→23:39)
[2018-12-28] MEDS: CEFEPIME 2 GM in SODIUM CHLORIDE 0.9% 100 ML IVPB SCH ×3 (08:16→23:35)
[2018-12-28] MEDS: methylPREDNISolone SOD SUCCI 125 MG/2 ML VIAL IV SCH ×3 (08:16→23:39)
[2018-12-28] MEDS: SENNOSIDES-DOCUSATE SODIUM 1 EACH TAB PO SCH ×2 (08:17→21:33)
[2018-12-28] MEDS: FAMOTIDINE 20 MG TAB PO SCH ×2 (08:17→21:33)
[2018-12-28] MEDS: SYMBICORT 160-4.5 MCG INHALER INHALATION SCH (08:46)
--- NOTE | 2018-12-28 10:34 | P.PN ---
Subjective This is a 48-year-old gentleman with history of esophageal cancer, completed radiation and chemotherapy, history of gastric pull-through, recent biopsy reporting adenocarcinoma with chemotherapy resumed. T-max on admission 100.3, WBC 14.6, neutrophils normal, hemoglobin ,platelets, electrolytes essentially normal.Currently T-max 100.2, WBC improving, down to 12.4.. Maintained on IV fluid hydration of D5.45 MLS per hour, cefepime, vancomycin. Speech consulted to evaluate for silent aspiration(prior history of PEG tube which has been discontinued). Chest x-ray reported new multifocal airspace disease possible multifocal pneumonia versus pulmonary edema. F/U chest x-ray this morning with no significant change. On admission patient had been satting high 90s on room air. During the afternoon patient sats decreased to 93-94%. Last night, patient desatted to 70s to 80s %, A teamed called, received a dose of Lasix 40 IV push and placed on BiPAP. BiPAP weaned off currently on 15 L high flow nasal cannula this morning, maintaining O2 sats of 93%. No further nausea vomiting or diarrhea. Tolerating clear liquid diet. 12/26/2018 Tested negative for influenza, CT negative for PE, received a couple doses of Lasix for potential pulmonary edema, Swallow evaluation per speech therapy with no aspiration observed, universal aspiration precautions recommended..During the night, patient desatted, did not respond to BiPAP, transferred to ICU and placed on Airvo. Maintaining O2 sats of low 90s on 80% airvo. Maintained on IV antibiotics of vancomycin, Maxipime as per infectious disease. T-max 100.4,WBC WNL. Preliminary blood cultures negative at 24 hours .Continues on nebulized bronchodilators. Feels better this morning. Above notes per nurse practitioner. 12/27/2018: She remains on high flow nasal cannula oxygen. Pulse ox is 92%. He remains on IV vancomycin plus Maxipime for antibiotic coverage. Solu-Medrol was started yesterday and seems to help. He remains nothing by mouth for suspected chronic aspiration. His is at bedside. Chest x-ray today shows worsening interstitial airspace disease. Clinically he feels better. Staff report he is doing better. 12/28/2018: Patient's chest x-ray shortness of breath continue worsen. He is unable to move significantly not descending. He remains on Airvo. His remains at bedside. I discussed this case with Dr. Wade, he is considering bronchoscopy, but fears that he would end up being intubated and unable to ween.Exact cause of his symptoms are unknown without multifactorial due to aspiration pneumonia, chemical pneumonitis due to chemotherapy, and other factors. Objective - Vital Signs Vital signs: Vital Signs Temp 98.2 F 12/28/18 08:00 Pulse 102 H 12/28/18 10:00 Resp 26 H 12/28/18 10:00 BP 132/88 12/28/18 10:00 Pulse Ox 87 L 12/28/18 10:00 Intake & Output 12/27/18 12/28/18 12/28/18 18:59 06:59 18:59 Intake Total 1570 1025 650 Output Total 850 850 0 Balance 720 175 650 Weight 78.4 kg Intake: IV 1470 1025 400 .9 770 675 300 Cefepime 2 gm In Sodium 200 100 100 Chloride 0.9% 100 ml @ 200 mls/hr IVPB Q8HR [facility] Rx#:[id number] Vanco 250 250 Vancomycin 1,250 mg In 250 Sodium Chloride 0.9% 250 ml @ 125 mls/hr IVPB Q8H [facility] Rx#:[id number] Intake, IV Titration 250 Amount Vancomycin 1,500 mg In 250 Sodium Chloride 0.9% 250 ml @ 125 mls/hr IVPB ONCE [facility] Rx#:[id number] Oral 100 Output: Urine 850 850 0 Other: Voiding Method Urinal Urinal - Exam General: The patient is somnolent in minimal distress with high flow oxygen in place. Neck: The neck is supple, there is no thyromegaly, lymphadenopathy, tenderness or JVD. Cardiovascular: S1S2 is normal, There is a regular rate and rhythm. No murmur, rub or gallop is appreciated. Respiratory: Lungs are coarse with the bilateral rhonchi. There is improved aeration of the left lung today. Breath sounds are generally diminished. Gastrointestinal: Soft, non-distended, non-tender abdomen without masses or organomegaly noted. There is no rebound or guarding present. Bowel sounds are unremarkable. Musculoskeletal: Normal ROM, no tenderness, There is no pedal edema. There is no calf tenderness or swelling. No cords were appreciated. Neurological: CN II-XII intact, there are no obvious motor or sensory deficits. Coordination appears grossly intact. Speech is normal. Skin: Skin is warm and dry and no rashes or lesions are noted. - Labs CBC & Chem 7: 12/28/18 03:30 12/28/18 03:30 Labs: Abnormal Lab Results - Last 24 Hours (Table) 12/28/18 12/28/18 12/28/18 Range/Units 03:30 03:30 06:59 WBC 18.1 H (3.8-10.6) k/uL RBC 3.65 L (4.30-5.90) m/uL Hgb 10.8 L (13.0-17.5) gm/dL Hct 34.4 L (39.0-53.0) % RDW 17.7 H (11.5-15.5) % Neutrophils # 17.1 H (1.3-7.7) k/uL Lymphocytes # 0.6 L (1.0-4.8) k/uL ABG pH 7.47 H (7.35-7.45) ABG pO2 49 L* (83-108) mmHg ABG HCO3 29 H (21-25) mmol/L ABG Total CO2 30 H (19-24) mmol/L ABG O2 Saturation 84.2 L (94-97) % Creatinine 0.47 L (0.66-1.25) mg/dL Glucose 134 H (74-99) mg/dL Magnesium 2.5 H (1.6-2.3) mg/dL ALT 13 L (21-72) U/L Alkaline Phosphatase 134 H (38-126) U/L Total Protein 5.9 L (6.3-8.2) g/dL Albumin 3.1 L (3.5-5.0) g/dL Microbiology - Last 24 Hours (Table) 12/26/18 03:35 Gram Stain - Final Sputum Sputum Culture - Final 12/24/18 11:30 Blood Culture - Preliminary Blood No Growth after 72 hours 12/24/18 09:40 Blood Culture - Preliminary Blood No Growth after 72 hours Assessment and Plan (1) Acute respiratory failure with hypoxia Current Visit: Yes Status: Acute Code(s): J96.01 - ACUTE RESPIRATORY FAILURE WITH HYPOXIA SNOMED Code(s): 51589889 (2) Acute pneumonitis Current Visit: Yes Status: Acute Code(s): J18.9 - PNEUMONIA, UNSPECIFIED O RGANISM SNOMED Code(s): 149661293 (3) Aspiration pneumonia Current Visit: Yes Status: Acute Code(s): J69.0 - PNEUMONITIS DUE TO INHALATION OF FOOD AND VOMIT SNOMED Code(s): 517737653 (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 Wait on further recommendations from hematology/oncology., Infectious disease He'll be reevaluated in the next 24 hours. Currently, he seems to be deteriorating, despite maximum medical interventions.
--- NOTE | 2018-12-28 10:38 | PN ---
PROGRESS NOTE DATE OF SERVICE: December 28, 2018. A 48-year-old male with a history of esophageal cancer. He is status post esophagectomy with gastric pull-through surgery back in 2017. The diagnosis was made in 2015. He was sent to [facility] and saw Dr. Poncho Mack who did the surgery. Unfortunately, more recently, the patient has developed recurrence of his esophageal cancer with metastasis to the stomach and L3 spine. The patient was admitted to the hospital on December 24 with a diagnosis of worsening respiratory status. Initially, it was thought to be related to aspiration and still probably is to some extent. Other possibilities would include lymphangitic carcinomatosis versus chemotherapy induced acute lung injury. Anyway, the patient is doing worse on the floor and I moved him to the ICU. He could not tolerate BiPAP. We chose instead the patient use AIRVO. Currently, he is at 60 L/minute with an estimated FiO2 of 94%. The patient is getting a 0.9 IV at 75 mL an hour. Blood gases done earlier today showed a PO2 of 49, pCO2 of 40 and a pH 7.47. He is currently on cefepime and vancomycin. His culture data has all been negative thus far. He clinically does not look horrible. The patient actually states that he is feeling a bit better. He just has these coughing jags at which time he desaturates. Yesterday, he seemed to be doing better on the steroids. PHYSICAL EXAMINATION: VITAL SIGNS: Current vital signs reviewed. Temperature is 98.2. Heart rate 99, respiratory rate 26, blood pressure 108/73, mean 84. Saturation 93% on the AIRVO. GENERAL: Appears in no acute distress. HEENT examination is grossly unremarkable. Mucous membranes are moist. No oral lesions. NECK: Supple. Full range of motion. No adenopathy or thyromegaly. NECK veins are flat. CARDIOVASCULAR examination reveals regular rhythm and rate. S1, S2 normal. No S3, S4, or murmur. LUNGS: Diminished breath sounds throughout. He has got some coarse rhonchi bilaterally. Some mild expiratory wheezes are appreciated as well. No crackles. Breath sounds are equal but diminished throughout. ABDOMEN: Soft. Bowel sounds are heard. EXTREMITIES are intact. No cyanosis, clubbing, or edema. SKIN without rash. NEUROLOGIC examination is brief but nonfocal. LABS: Reviewed. White count 18.1, hemoglobin 10.8, hematocrit 34.4, platelet count 208,000. Sodium 139, potassium 4.1, chloride 105, CO2 29, BUN and creatinine were 13 and 0.47. The rest of the labs are reviewed. Chest x-ray shows worsening infiltrate. Medications are reviewed. The samson medications include Symbicort, albuterol and Atrovent updrafts, cefepime and vancomycin and Solu-Medrol. ASSESSMENT: 1. Acute hypoxemic respiratory failure, possibly secondary to either chronic aspiration pneumonia versus chemotherapy induced acute lung injury versus lymphangitic carcinomatosis. 2. History of esophageal cancer diagnosed back in 2016, status post status post esophagectomy with gastric pull-through surgery done in 2017, followed by chemo/radiation. 3. History of recurrent esophageal cancer with METS to the stomach and L3 spine. 4. History of gastroesophageal reflux disease. 5. History of exercise-induced asthma. 6. Chronic aspiration syndrome. PLAN: The patient's Symbicort will be switched to Perforomist and Pulmicort. The patient will continue on all the other medications. Additional recommendations and suggestions are forthcoming. The Solu-Medrol has seemed to help a bit. Microbiologic studies including blood and sputum are all negative. We will continue to follow. Prognosis is guarded. MMODL / IJN: [id number] /
[2018-12-28] MEDS: SODIUM CHLORIDE 0.9% 1,000 ML IV SCH (13:39)
--- NOTE | 2018-12-28 16:22 | P.PN ---
Subjective Progress Note Date: 12/28/18 48-year-old male who is known history of esophageal cancer status post the gastric pull-through procedure. Has completed his original course of chemotherapy and radiation therapy. Was having increasing difficulties and recent biopsies continue to show evidence of adenocarcinoma. He is receiving further courses of chemotherapy at this time. He however now presents to hospital with fever of 103 with chills and rigors and feeling poorly. He has minimal pulmonary symptoms with some cough without much sputum production and no hemoptysis. He relates since coming to Hospital his fever and chills are starting to improve. 12/25/2018 Does feel quite poorly overall. Status has worsened he is more short of breath feels worse today. Requiring increasing amounts of oxygen. Patient still feels very poorly. 12/26/2018 patient's feeling better today off of BiPAP and on Airvo it's much more comfortable and is less short of breath. The BiPAP positive pressure causing nausea and emesis, now improved. 12/27/2018 patient has bouts of nausea which worsens the SOB. Denies fever ,Airvo is well tolerated. December 28, 2018 patient remains on high flow oxygen, is very tired and is easily agitated. Status is not showing much improvement. Patient's is present. Objective - Vital Signs Vital signs: Vital Signs Temp 98.0 F 12/28/18 16:00 Pulse 106 H 12/28/18 16:00 Resp 25 H 12/28/18 16:00 BP 133/84 12/28/18 16:00 Pulse Ox 91 L 12/28/18 16:00 Intake & Output 12/27/18 12/28/18 12/28/18 18:59 06:59 18:59 Intake Total 1570 1025 1200 Output Total 850 850 400 Balance 720 175 800 Weight 78.4 kg 78.4 kg Intake: IV 1470 1025 950 .9 770 675 750 Cefepime 2 gm In Sodium 200 100 200 Chloride 0.9% 100 ml @ 200 mls/hr IVPB Q8HR [facility] Rx#:[id number] Vanco 250 250 Vancomycin 1,250 mg In 250 Sodium Chloride 0.9% 250 ml @ 125 mls/hr IVPB Q8H [facility] Rx#:[id number] Intake, IV Titration 250 Amount Vancomycin 1,500 mg In 250 Sodium Chloride 0.9% 250 ml @ 125 mls/hr IVPB ONCE ONE Rx#:[id number] Oral 100 Output: Urine 850 850 400 Other: Voiding Method Urinal Urinal - Exam 48-year-old male ot improved still very short of breath dyspneic with talking or any motion HEENT: Anicteric conjunctiva are pink and moist nasal mucosa grossly intact without significant lesions, there is no thrush. Neck: The neck is supple without significant lymphadenopathy or thyromegaly. Lungs: Symmetrical air entry is noted few basilar crackles few expiratory wheezes no bronchial sounds. Heart: Regular rate and rhythm with an audible S1-S2, no S3 no S4. There is no significant murmur click or rub, PMI was nondisplaced. Abdomen: Positive bowel sounds soft and nontender without palpable masses or organomegaly. There was no guarding or rebound. Prior PEG tube site is well- healed Extremities: The upper extremities have excellent pulses they are symmetric, no significant petechiae or telangiectasia. No splinter hemorrhages were noted. The lower extremities are free from significant edema. The peripheral pulses were 2+ and symmetric. Evidence of muscular wasting Neuro:feeling better today - Labs CBC & Chem 7: 12/28/18 03:30 12/28/18 03:30 Labs: Abnormal Lab Results - Last 24 Hours (Table) 12/28/18 12/28/18 12/28/18 Range/Units 03:30 03:30 06:59 WBC 18.1 H (3.8-10.6) k/uL RBC 3.65 L (4.30-5.90) m/uL Hgb 10.8 L (13.0-17.5) gm/dL Hct 34.4 L (39.0-53.0) % RDW 17.7 H (11.5-15.5) % Neutrophils # 17.1 H (1.3-7.7) k/uL Lymphocytes # 0.6 L (1.0-4.8) k/uL ABG pH 7.47 H (7.35-7.45) ABG pO2 49 L* (83-108) mmHg ABG HCO3 29 H (21-25) mmol/L ABG Total CO2 30 H (19-24) mmol/L ABG O2 Saturation 84.2 L (94-97) % Creatinine 0.47 L (0.66-1.25) mg/dL Glucose 134 H (74-99) mg/dL Magnesium 2.5 H (1.6-2.3) mg/dL ALT 13 L (21-72) U/L Alkaline Phosphatase 134 H (38-126) U/L Total Protein 5.9 L (6.3-8.2) g/dL Albumin 3.1 L (3.5-5.0) g/dL Microbiology - Last 24 Hours (Table) 12/24/18 11:30 Blood Culture - Preliminary Blood No Growth after 96 hours 12/24/18 09:40 Blood Culture - Preliminary Blood No Growth after 96 hours 12/26/18 03:35 Gram Stain - Final Sputum Sputum Culture - Final Laboratory Results WBC 18.1 k/uL (3.8-10.6) H 12/28/18 03:30 RBC 3.65 m/uL (4.30-5.90) L 12/28/18 03:30 Hgb 10.8 gm/dL (13.0-17.5) L 12/28/18 03:30 Hct 34.4 % (39.0-53.0) L 12/28/18 03:30 MCV 94.3 fL (80.0-100.0) 12/28/18 03:30 MCH 29.5 pg (25.0-35.0) 12/28/18 03:30 MCHC 31.3 g/dL (31.0-37.0) 12/28/18 03:30 RDW 17.7 % (11.5-15.5) H 12/28/18 03:30 Plt Count 208 k/uL (150-450) 12/28/18 03:30 Neutrophils % 95 % 12/28/18 03:30 Lymphocytes % 3 % 12/28/18 03:30 Monocytes % 2 % 12/28/18 03:30 Eosinophils % 0 % 12/28/18 03:30 Basophils % 0 % 12/28/18 03:30 Neutrophils # 17.1 k/uL (1.3-7.7) H 12/28/18 03:30 Lymphocytes # 0.6 k/uL (1.0-4.8) L 12/28/18 03:30 Monocytes # 0.4 k/uL (0-1.0) 12/28/18 03:30 Eosinophils # 0.0 k/uL (0-0.7) 12/28/18 03:30 Basophils # 0.0 k/uL (0-0.2) 12/28/18 03:30 Hypochromasia Moderate 12/28/18 03:30 Poikilocytosis Slight 12/28/18 03:30 Anisocytosis Slight 12/28/18 03:30 PT 10.7 sec (9.0-12.0) 12/24/18 10:00 INR 1.0 (<1.2) 12/24/18 10:00 APTT 25.3 sec (22.0-30.0) 12/24/18 10:00 Sample Site LRAD 12/28/18 06:59 ABG pH 7.47 (7.35-7.45) H 12/28/18 06:59 ABG pCO2 40 mmHg (35-45) 12/28/18 06:59 ABG pO2 49 mmHg (83-108) L* 12/28/18 06:59 ABG HCO3 29 mmol/L (21-25) H 12/28/18 06:59 ABG Total CO2 30 mmol/L (19-24) H 12/28/18 06:59 ABG O2 Saturation 84.2 % (94-97) L 12/28/18 06:59 ABG Base Excess 5.3 mmol/L 12/28/18 06:59 Jose Test Yes 12/28/18 06:59 FiO2 95 % 12/28/18 06:59 Sodium 139 mmol/L (137-145) 12/28/18 03:30 Potassium 4.1 mmol/L (3.5-5.1) 12/28/18 03:30 Chloride 105 mmol/L (98-107) 12/28/18 03:30 Carbon Dioxide 29 mmol/L (22-30) 12/28/18 03:30 Anion Gap 5 mmol/L 12/28/18 03:30 BUN 13 mg/dL (9-20) 12/28/18 03:30 Creatinine 0.47 mg/dL (0.66-1.25) L 12/28/18 03:30 Est GFR (CKD-EPI)AfAm >90 (>60 ml/min/1.73 sqM) 12/28/18 03:30 Est GFR (CKD-EPI)NonAf >90 (>60 ml/min/1.73 sqM) 12/28/18 03:30 Glucose 134 mg/dL (74-99) H 12/28/18 03:30 POC Glucose (mg/dL) 147 mg/dL (75-99) H 12/25/18 19:07 POC Glu Outpatient Admitting Clerk Lois Sol 12/25/18 19:07 Calcium 8.8 mg/dL (8.4-10.2) 12/28/18 03:30 Magnesium 2.5 mg/dL (1.6-2.3) H 12/28/18 03:30 Total Bilirubin 0.4 mg/dL (0.2-1.3) 12/28/18 03:30 AST 33 U/L (17-59) 12/28/18 03:30 ALT 13 U/L (21-72) L 12/28/18 03:30 Alkaline Phosphatase 134 U/L (38-126) H 12/28/18 03:30 NT-Pro-B Natriuret Pep 787 pg/mL 12/25/18 06:37 Total Protein 5.9 g/dL (6.3-8.2) L 12/28/18 03:30 Albumin 3.1 g/dL (3.5-5.0) L 12/28/18 03:30 Urine Color Yellow 12/24/18 11:45 Urine Appearance Clear (Clear) 12/24/18 11:45 Urine pH 7.0 (5.0-8.0) 12/24/18 11:45 Ur Specific [place] 1.008 (1.001-1.035) 12/24/18 11:45 Urine Protein Trace (Negative) H 12/24/18 11:45 Urine Glucose (UA) Negative (Negative) 12/24/18 11:45 Urine Ketones Negative (Negative) 12/24/18 11:45 Urine Blood Negative (Negative) 12/24/18 11:45 Urine Nitrite Negative (Negative) 12/24/18 11:45 Urine Bilirubin Negative (Negative) 12/24/18 11:45 Urine Urobilinogen 2.0 mg/dL (<2.0) 12/24/18 11:45 Ur Leukocyte Esterase Negative (Negative) 12/24/18 11:45 Vancomycin Trough 19.1 ug/mL 12/28/18 03:30 Influenza Type A RNA Not Detected (Not Detectd) 12/24/18 10:15 Influenza Type B (PCR) Not Detected (Not Detectd) 12/24/18 10:15 Microbiology 12/24/18 11:30 Blood Blood Culture - Preliminary No Growth after 96 hours 12/24/18 09:40 Blood Blood Culture - Preliminary No Growth after 96 hours 12/26/18 03:35 Sputum Gram Stain - Final 12/26/18 03:35 Sputum Sputum Culture - Final Assessment and Plan (1) Esophageal cancer Current Visit: No Status: Acute Code(s): C15.9 - MALIGNANT NEOPLASM OF ESOPHAGUS, UNSPECIFIED SNOMED Code(s): 488997616 (2) Fever Narrative/Plan: 48 -year-old male presents to Hospital feeling poorly with onset of increasing fever malaise and chills. The patient has a known history of esophageal cancer, status post gastric pull-through who has already received his original course of chemotherapy and radiation. But is now receiving further ch emotherapy with evidence of ongoing adenocarcinoma. The patient is starting to feel somewhat better since admission and initiation of fluids and antibiotic therapy. The patient has had imaging studies including the computed tomography scan that is revealing some ongoing difficulties with pulmonary infiltrates. Patient is currently receiving cefepime and vancomycin and tolerating that well. We'll need to have further cultures to help further define his antibiotic therapy. He however is not neutropenic at this time. Would like to have the speech pathologist to evaluate the possibility of silent aspiration or reflux that could be causing the current pulmonary changes by computed tomography scan. Leukocytosis appears to be in the bases of the current infectious process. 12/25/2018 patient is had worsening of his status. Respiratory status is worsening. Concern as to ongoing aspiration as etiology for his current respiratory distress and pulmonary changes. CT angiogram requested. Pulmonary critical care evaluating There are multiple other concerns including lymphangitic spread of his malignancy, acute lung injury, acute lung injury from chemotherapy. We've asked for speech therapy to evaluate if he is having ongoing significant aspiration. Fever has responded antibiotic therapy await cultures to further direct antibiotic therapy. 12/26/2018 patient's respiratory status is now stabilized on high flow oxygen. His nausea is improved no further emesis. Ongoing evaluation as to the etiology of his pulmonary infiltrates, however ongoing aspiration is of great concern. His fevers improved. We'll continue current antibiotic therapy while evaluations continue. December 27, 2018 patient is stable today. He is without other new acute complaints. Does have occasional waves of nausea which became more short of breath other than this he has no new complaints today. He is afebrile. Continues to struggle with his intake. We have asked for protein supplements to try to improve his strength. December 28, 2018 patient is not improving. He's been made fully nothing by mouth again. Respiratory status is not improving despite the high flow oxygen which is now been increased to even a higher level. The patient is dyspneic with any activity. I did discuss with the that it is likely in the next short period of time if he does not improve he will require intubation mechanical ve ntilation. And with his status likely would not be able to come well enough to ever come off the ventilator. She does understand relates that would give her an opportunity to be able to say goodbye as well as the family. Current Visit: Yes Status: Acute Code(s): R50.9 - FEVER, UNSPECIFIED SNOMED Code(s): 675916010 (3) Pulmonary infiltrates Current Visit: Yes Status: Acute Code(s): R91.8 - OTHER NONSPECIFIC ABNORMAL FINDING OF LUNG FIELD SNOMED Code(s): 724325138
--- NOTE | 2018-12-28 17:01 | P.PN ---
Subjective Progress Note Date: 12/28/18 The patient continues to be quite symptomatically in terms of his respiration. He has not had any significant improvement in terms of oxygenation. He continues to desaturate very quickly with even conversation. Generalized weakness persists. Oral intake is quite poor. No obvious bleeding. Objective - Vital Signs Vital signs: Vital Signs Temp 98.0 F 12/28/18 16:00 Pulse 116 H 12/28/18 16:26 Resp 25 H 12/28/18 16:00 BP 133/84 12/28/18 16:00 Pulse Ox 91 L 12/28/18 16:00 Intake & Output 12/27/18 12/28/18 12/28/18 18:59 06:59 18:59 Intake Total 1570 1025 1200 Output Total 850 850 400 Balance 720 175 800 Weight 78.4 kg 78.4 kg Intake: IV 1470 1025 950 .9 770 675 750 Cefepime 2 gm In Sodium 200 100 200 Chloride 0.9% 100 ml @ 200 mls/hr IVPB Q8HR [facility] Rx#:[id number] Vanco 250 250 Vancomycin 1,250 mg In 250 Sodium Chloride 0.9% 250 ml @ 125 mls/hr IVPB Q8H [facility] Rx#:[id number] Intake, IV Titration 250 Amount Vancomycin 1,500 mg In 250 Sodium Chloride 0.9% 250 ml @ 125 mls/hr IVPB ONCE ONE Rx#:[id number] Oral 100 Output: Urine 850 850 400 Other: Voiding Method Urinal Urinal - Constitutional General appearance: Present: mild distress - EENT Eyes: Present: EOMI ENT: Present: hearing grossly normal, normal oropharynx - Respiratory Respiratory: bilateral: diminished, rales - Cardiovascular Rhythm: regular Heart sounds: normal: S1, S2 - Gastrointestinal General gastrointestinal: Present: normal bowel sounds, soft - Integumentary Integumentary: Present: normal - Neurologic Neurologic: Present: CNII-XII intact - Musculoskeletal Musculoskeletal: Present: generalized weakness, strength equal bilaterally - Psychiatric Psychiatric Comment(s): Patient is oriented, but is quite anxious. Focus and Comprehension may be somewhat diminished. Psychiatric: Present: A&O x's 3 - Labs CBC & Chem 7: 12/28/18 03:30 12/28/18 03:30 Labs: Abnormal Lab Results - Last 24 Hours (Table) 12/28/18 12/28/18 12/28/18 Range/Units 03:30 03:30 06:59 WBC 18.1 H (3.8-10.6) k/uL RBC 3.65 L (4.30-5.90) m/uL Hgb 10.8 L (13.0-17.5) gm/dL Hct 34.4 L (39.0-53.0) % RDW 17.7 H (11.5-15.5) % Neutrophils # 17.1 H (1.3-7.7) k/uL Lymphocytes # 0.6 L (1.0-4.8) k/uL ABG pH 7.47 H (7.35-7.45) ABG pO2 49 L* (83-108) mmHg ABG HCO3 29 H (21-25) mmol/L ABG Total CO2 30 H (19-24) mmol/L ABG O2 Saturation 84.2 L (94-97) % Creatinine 0.47 L (0.66-1.25) mg/dL Glucose 134 H (74-99) mg/dL Magnesium 2.5 H (1.6-2.3) mg/dL ALT 13 L (21-72) U/L Alkaline Phosphatase 134 H (38-126) U/L Total Protein 5.9 L (6.3-8.2) g/dL Albumin 3.1 L (3.5-5.0) g/dL Microbiology - Last 24 Hours (Table) 12/24/18 11:30 Blood Culture - Preliminary Blood No Growth after 96 hours 12/24/18 09:40 Blood Culture - Preliminary Blood No Growth after 96 hours 12/26/18 03:35 Gram Stain - Final Sputum Sputum Culture - Final Assessment and Plan (1) Acute pneumonitis Narrative/Plan: The patient's history status continues to be quite tenuous despite aggressive management, including high flow oxygen, antibiotics, breathing treatments, and high-dose steroids. Chest x-rays continued to show some worsening infiltrative changes. I discussed with the patient, that if he is not responding to current care, then he may not have acutely reversible conditions such as aspiration pneumonia, or hypersensitivity pneumonitis due to chemotherapy. In that case t here would be significant concern for rapidly progressive lymphangitic carcinomatosis. To confirm diagnosis the patient would need a bronchoscopy, but that procedure would likely have a high risk of progressive respiratory failure and need for ventilation. 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 The patient stated that he understood the above, but his responses indicated that comprehension may not be totally satisfactory. Continue current aggressive care. If The patient is not improving, would need to discuss CODE STATUS and wishes regarding ventilator support with him and his family. Current Visit: Yes Status: Acute Code(s): J18.9 - PNEUMONIA, UNSPECIFIED ORGANISM SNOMED Code(s): 631805681 (2) Acute respiratory failure with hypoxia Narrative/Plan: As above Current Visit: Yes Status: Acute Code(s): J96.01 - ACUTE RESPIRATORY FAILURE WITH HYPOXIA SNOMED Code(s): 79570168 (3) Esophageal cancer Narrative/Plan: The patient has recurrent, stage IV disease. He was on FOLFOX most recently. As noted, there was some concern for hypersensitivity pneumonitis due to chemotherapy but this is quite red. He was empirically placed on high-dose IV antibiotics for the same. If the patient does have rapidly progressive lymphangitic carcinomatosis, then effective treatment options can be quite limited. I will review his prior treatment regimens, to see what options there may be, if any, in that case. Current Visit: No Status: Acute Code(s): C15.9 - MALIGNANT NEOPLASM OF ESOPHAGUS, UNSPECIFIED SNOMED Code(s): 512208895
[2018-12-28] MEDS: FORMOTEROL FUMARATE 20 MCG/2 ML NEBU INHALATION SCH (19:25)
[2018-12-28] MEDS ORDERED: BUDESONIDE 0.5 MG/2 ML NEBU INHALATION SCH (20:00)
[2018-12-28] MEDS: traZODone HCL 50 MG TAB PO SCH (21:39)
[2018-12-28] MEDS: BUDESONIDE 1 MG/2 ML NEBU INHALATION SCH (22:57)
[2018-12-29] MEDS: SODIUM CHLORIDE 0.9% 1,000 ML IV SCH ×2 (02:00→15:42)
[2018-12-29] MEDS: IPRATROPIUM-ALBUTEROL 3 ML NEB INHALATION SCH ×6 (03:17→23:40)
[2018-12-29 03:43] LABS: Anisocytosis Slight; Basophils % (A) 0 %; Eosinophils # (A) 0.1 k/uL (0-0.7); Eosinophils % (A) 1 %; HCT 34.3 % (39.0-53.0); HGB 10.5 gm/dL (13.0-17.5); Hypochromasia Moderate; Lymphocytes # (A) 0.4 k/uL (1.0-4.8); Lymphocytes % (A) 2 %; MCH 28.5 pg (25.0-35.0); MCHC 30.5 g/dL (31.0-37.0); MCV 93.6 fL (80.0-100.0); Mean Platelet Volume 7.5; Monocytes # (A) 0.4 k/uL (0-1.0); Monocytes % (A) 2 %; Neutrophils # (A) 14.2 k/uL (1.3-7.7); Neutrophils % (A) 94 %; Platelet Count 184 k/uL (150-450); Poikilocytosis Slight; RBC 3.67 m/uL (4.30-5.90); RDW 17.6 % (11.5-15.5); WBC 15.1 k/uL (3.8-10.6)
[2018-12-29 03:52] LABS: ALT 18 U/L (21-72); AST 30 U/L (17-59); African American GFR (CKD) >90 (>60 ml/min/1.73 sqM); Alkaline Phosphatase 141 U/L (38-126); Anion Gap 3 mmol/L; Blood Urea Nitrogen 21 mg/dL (9-20); Calcium 8.6 mg/dL (8.4-10.2); Carbon Dioxide 29 mmol/L (22-30); Chloride 109 mmol/L (98-107); Glucose 122 mg/dL (74-99); Magnesium 2.7 mg/dL (1.6-2.3); Potassium 4.3 mmol/L (3.5-5.1); Sodium 141 mmol/L (137-145); Total Bilirubin 0.4 mg/dL (0.2-1.3); Total Protein 5.7 g/dL (6.3-8.2)
[2018-12-29] MEDS: VANCOMYCIN 1,500 MG in SODIUM CHLORIDE 0.9% 250 ML IVPB SCH ×3 (06:01→23:58)
[2018-12-29] MEDS: LORazepam 2 MG/ML INJ IV PRN ×2 (06:32→10:00)
[2018-12-29] MEDS ORDERED: PROPOFOL 10 MG/ML 20 ML VIAL IV ONE (07:28)
[2018-12-29] MEDS ORDERED: SUCCINYLCHOLINE CHLORIDE VIAL 200 MG/10 ML VIAL IV ONE (07:28)
[2018-12-29] MEDS: FORMOTEROL FUMARATE 20 MCG/2 ML NEBU INHALATION SCH ×2 (08:04→19:23)
[2018-12-29] MEDS: BUDESONIDE 1 MG/2 ML NEBU INHALATION SCH ×2 (08:04→19:23)
[2018-12-29] MEDS: CEFEPIME 2 GM in SODIUM CHLORIDE 0.9% 100 ML IVPB SCH ×2 (08:11→16:47)
[2018-12-29] MEDS: methylPREDNISolone SOD SUCCI 125 MG/2 ML VIAL IV SCH ×2 (08:14→18:12)
[2018-12-29] MEDS: HEPARIN SODIUM,PORCINE 5,000 UNIT/ML 1 ML VIAL SQ SCH ×2 (08:19→18:11)
--- NOTE | 2018-12-29 08:32 | XR ---
EXAMINATION TYPE: XR chest 1V portable DATE OF EXAM: 12/29/2018 COMPARISON: 12/28/2018 INDICATION: Short of breath TECHNIQUE: Single frontal view of the chest is obtained. FINDINGS: The heart size is mildly prominent. The pulmonary vasculature is prominent and somewhat indistinct. There is diffuse increase in bowel opacification through the right lung. Left mid and lower lung fiel d infiltrate is present. Findings can be related to pulmonary edema. Pneumonia could be considered. S ome air bronchograms are present. Consider ARDS. Right central venous catheter is present with the tip in the proximal right atrium. EKG leads overlie the chest. IMPRESSION: 1. Clinical correlation recommended for stable bilateral pneumonia, ARDS, or pulmonary edema
[2018-12-29] MEDS: PANTOPRAZOLE 40 MG TABLET PO SCH (09:34)
[2018-12-29] MEDS: SENNOSIDES-DOCUSATE SODIUM 1 EACH TAB PO SCH ×2 (09:34→21:05)
[2018-12-29] MEDS: FLUCONAZOLE IN NACL,ISO-OSM 100 MG in SALINE 1 50ML.BAG IVPB SCH (10:39)
--- NOTE | 2018-12-29 11:46 | P.PN ---
Subjective Progress Note Date: 12/29/18 Principal diagnosis: Difficulty in breathing, nausea and vomiting. Metastatic esophageal adenocarcinoma In follow-up today patient's significant other is at the bedside, he continues on high flow O2, difficulty completing a sentence without shortness of breath, no appetite, no recent vomiting, abdominal distention, no recent bowel movement, weak and fatigued. Objective - Vital Signs Vital signs: Vital Signs Temp 97.4 F L 12/29/18 08:00 Pulse 112 H 12/29/18 11:00 Resp 27 H 12/29/18 11:00 BP 146/100 12/29/18 11:00 Pulse Ox 86 L 12/29/18 11:00 Intake & Output 12/28/18 12/29/18 12/29/18 18:59 06:59 18:59 Intake Total 1600 1250 450 Output Total 400 550 200 Balance 1200 700 250 Weight 78.4 kg 79.3 kg 79.3 kg Intake: IV 1100 1250 400 .9 900 900 300 Cefepime 2 gm In Sodium 200 100 100 Chloride 0.9% 100 ml @ 200 mls/hr IVPB Q8HR [facility] Rx#:[id number] Vanco 250 Intake, IV Titration 500 50 Amount Fluconazole in NaCl,Iso- 50 Osm 100 mg In Saline 1 50ml.bag @ 50 mls/hr IVPB DAILY [facility] Rx#:[id number] Vancomycin 1,500 mg In 500 Sodium Chloride 0.9% 250 ml @ 125 mls/hr IVPB ONCE ONE Rx#:[id number] Output: Urine 400 550 200 Other: Voiding Method Urinal Urinal # Voids 1 - Constitutional General appearance: Present: cooperative, severe distress, thin - EENT Eyes: Present: anicteric sclerae, EOMI ENT: Present: hearing grossly normal - Respiratory Details: High flow O2, weak inspiratory effort. Respiratory: bilateral: diminished - Cardiovascular Heart sounds: normal: S1, S2 Abnormal Heart Sounds: Absent: systolic murmur, diastolic murmur, rub, S3 Gallop, S4 Gallop, click, other - Gastrointestinal General gastrointestinal: Present: normal bowel sounds, soft. Absent: absent bowel sounds, decreased bowel sounds, distended, hepatomegaly, hyperactive bowel sounds, organomegaly, rigid, scaphoid, splenomegaly, tenderness, umbilical hernia, ventral hernia - Integumentary Integumentary: Present: pale - Neurologic Neurologic: Present: CNII-XII intact - Musculoskeletal Musculoskeletal: Present: generalized weakness - Psychiatric Psychiatric: Present: A&O x's 3, appropriate affect, intact judgment & insight - Labs CBC & Chem 7: 12/29/18 03:30 12/29/18 03:30 Labs: Abnormal Lab Results - Last 24 Hours (Table) 12/29/18 12/29/18 Range/Units 03:30 03:30 WBC 15.1 H (3.8-10.6) k/uL RBC 3.67 L (4.30-5.90) m/uL Hgb 10.5 L (13.0-17.5) gm/dL Hct 34.3 L (39.0-53.0) % MCHC 30.5 L (31.0-37.0) g/dL RDW 17.6 H (11.5-15.5) % Neutrophils # 14.2 H (1.3-7.7) k/uL Lymphocytes # 0.4 L (1.0-4.8) k/uL Chloride 109 H (98-107) mmol/L BUN 21 H (9-20) mg/dL Creatinine 0.52 L (0.66-1.25) mg/dL Glucose 122 H (74-99) mg/dL Magnesium 2.7 H (1.6-2.3) mg/dL ALT 18 L (21-72) U/L Alkaline Phosphatase 141 H (38-126) U/L Total Protein 5.7 L (6.3-8.2) g/dL Albumin 3.0 L (3.5-5.0) g/dL Microbiology - Last 24 Hours (Table) 12/24/18 11:30 Blood Culture - Preliminary Blood No Growth after 96 hours 12/24/18 09:40 Blood Culture - Preliminary Blood No Growth after 96 hours - Imaging and Cardiology Chest x-ray: report reviewed Assessment and Plan (1) Acute respiratory failure with hypoxia Narrative/Plan: Differential diagnosis includes aspiration pneumonia versus chemotherapy induced pneumonitis versus lymphangitic spread of malignancy. Patient is being treated for aspiration pneumonia with antibiotics, Infectious Disease is following. Patient is on steroids for possible pneumonitis. Patient's chest x-ray today is reported as stable. On examination though, patient status appears unchanged. Continue on high flow O2. Critical care team closely monitoring patient. Current Visit: Yes Status: Acute Priority: High Code(s): J96.01 - ACUTE RESPIRATORY FAILURE WITH HYPOXIA SNOMED Code(s): 89262877 (2) Metastasis from esophageal cancer Narrative/Plan: It was discussed with patient and concerns about his slow response to therapies for treatment of aspiration pneumonia or pneumonitis, and the concern for a lymphangitic carcinomatosis type spread of disease in the lungs. Patient would require bronchoscopy and biopsy to confirm the latter. Patient is in no condition for procedure at this time. While it is reasonable to continue treatment for both at this time it was recommended that they discuss CODE STATUS and medical interventions that they would want should patient require mechanical ventilation. Reviewed the lack of response of lymphangitic carcinomatosis to treatments as they are unable to treat malignancy fast enough to provide a person with any meaningful relief of symptoms or quality of life. All questions answered to the best of our ability. Patient's stated that at this time they would prefer intubation to allow family to visit patient. We encouraged visitation now while patient is alert and mostly oriented. Current Visit: Yes Status: Acute Priority: High Code(s): C79.9 - SECONDARY MALIGNANT NEOPLASM OF UNSPECIFIED SITE; C15.9 - MALIGNANT NEOPLASM OF ESOPHAGUS, UNSPECIFIED SNOMED Code(s): 645908355 Plan: Doctor attests: I performed a history and physical examination of this patient with dictator. I have developed impression and plan, I agree with dictators note, documented as a scribe.
[2018-12-29 12:04] LABS: Glucose,Whole Blood 108 mg/dL (75-99)
[2018-12-29 12:36] LABS: ALT 23 U/L (21-72); AST 36 U/L (17-59); African American GFR (CKD) >90 (>60 ml/min/1.73 sqM); Albumin 3.2 g/dL (3.5-5.0); Alkaline Phosphatase 145 U/L (38-126); Anion Gap 6 mmol/L; Blood Urea Nitrogen 22 mg/dL (9-20); Calcium 8.7 mg/dL (8.4-10.2); Carbon Dioxide 27 mmol/L (22-30); Chloride 109 mmol/L (98-107); Glucose 117 mg/dL (74-99); Magnesium 2.6 mg/dL (1.6-2.3); Phosphorus 3.2 mg/dL (2.5-4.5); Potassium 4.2 mmol/L (3.5-5.1); Sodium 142 mmol/L (137-145); Total Bilirubin 0.6 mg/dL (0.2-1.3); Triglycerides 160 mg/dL (<150)
[2018-12-29] MEDS ORDERED: [UNRECOGNIZED DRUG - REMARK] IV ONE ×7 (13:00)
[2018-12-29] MEDS ORDERED: LORazepam 2 MG/ML INJ IV ONE (14:18)
--- NOTE | 2018-12-29 14:37 | P.PN ---
Subjective Progress Note Date: 12/29/18 This is a 48-year-old male patient with known history of esophageal cancer status post gastric pull-through procedure that was done back in 2016. The patient has completed systemic chemotherapy and radiation therapy. The patient was having on and off issues with aspiration. The patient is in the [facility] unit because of an acute hypoxic respiratory failure and development of diffuse bilateral pulmonary infiltrates that has obviously progressed and gotten worse since 2 months ago and furthermore since he came into the hospital. Currently the patient is nothing by mouth. A bedside swallow evaluation was done and the patient was cleared for swallowing. Nevertheless after being given a small portion he had another emesis and emesis during which she would've had aspirated and the patient's toxemia got worse to the point where the patient desaturated low 70s. At the same time he is having on and off panic attacks. We managed to give this patient a high flow oxygen and the patient is currently on Airvo and 100% nonrebreather mask was also added to maintain a saturation of 88% and above . I had a lengthy discussion with the patient and his and I am very close and suggesting intubation mechanical ventilation. I kept the patient nothing by mouth. Due to his recurrent emesis and concern of aspiration, I'm suggesting initiating TPN on this patient for enteral feeding and nutritional support. Meanwhile, he has some oropharyngeal candidiasis for which she will be started on Diflucan. He is on a combination of cefepime and vancomycin. ID is on the case. Cultures of been all negative. Chest x-ray showing diffuse bilateral pulmonary infiltrates consistent with bilateral pulmonary pneumonia. The white cell count is at 15.1. T Objective - Vital Signs Vital signs: Vital Signs Temp 97.4 F L 12/29/18 12:00 Pulse 110 H 12/29/18 14:00 Resp 36 H 12/29/18 14:00 BP 146/103 12/29/18 14:00 Pulse Ox 89 L 12/29/18 14:00 Intake & Output 12/28/18 12/29/18 12/29/18 18:59 06:59 18:59 Intake Total 1600 1250 750 Output Total 400 550 200 Balance 1200 700 550 Weight 78.4 kg 79.3 kg 79.3 kg Intake: IV 1100 1250 700 .9 900 900 600 Cefepime 2 gm In Sodium 200 100 100 Chloride 0.9% 100 ml @ 200 mls/hr IVPB Q8HR [facility] Rx#:[id number] Vanco 250 Intake, IV Titration 500 50 Amount Fluconazole in NaCl,Iso- 50 Osm 100 mg In Saline 1 50ml.bag @ 50 mls/hr IVPB DAILY [facility] Rx#:[id number] Vancomycin 1,500 mg In 500 Sodium Chloride 0.9% 250 ml @ 125 mls/hr IVPB ONCE ONE Rx#:[id number] Output: Urine 400 550 200 Other: Voiding Method Urinal Urinal # Voids 1 - Exam General: Alert and Oriented x3, the patient is currently in a consider amount of respiratory distress especially with limited amount of activity. While at rest, he is able to tolerate the high flow oxygen and the 100% nonrebreather without any major difficulties. He is not using accessory muscles of breathing. Head: Normocytic, Atraumatic Neck: Supple, Neck was supple and without jugular venous distension, thyromegal y, or carotid bruits. Carotids were easily palpable bilaterally. There was no adenopathy., There is oropharyngeal candidiasis Mouth: No Lesions, No Thrush, the mucous membranes are extremely dry Eyes: Non-sclerotic No Palpable cervical, supraclavicular, axillary adenopathy Heart: Cardiac exam revealed the PMI to be normally situated and sized. The rhythm was regular and no extrasystoles were noted during several minutes of auscultation. The first and second heart sounds were normal and physiologic splitting of the second heart sound was noted. There were no murmurs, rubs, clicks, or gallops. Lungs: The patient is crackles in the mid and lower lung martínez bilaterally left base more than right. Vessels are equal and symmetrical otherwise. Abdomen: Soft, Non-Distended, Non-Tended, BSx4 Extremities: No Edema, Equal Strength Neurological: No Focal Defects: No sensory or motor deficits noted Psych: Calm and cooperative - Labs CBC & Chem 7: 12/29/18 03:30 12/29/18 11:45 Labs: Abnormal Lab Results - Last 24 Hours (Table) 12/29/18 12/29/18 12/29/18 Range/Units 03:30 03:30 11:45 WBC 15.1 H (3.8-10.6) k/uL RBC 3.67 L (4.30-5.90) m/uL Hgb 10.5 L (13.0-17.5) gm/dL Hct 34.3 L (39.0-53.0) % MCHC 30.5 L (31.0-37.0) g/dL RDW 17.6 H (11.5-15.5) % Neutrophils # 14.2 H (1.3-7.7) k/uL Lymphocytes # 0.4 L (1.0-4.8) k/uL Chloride 109 H 109 H (98-107) mmol/L BUN 21 H 22 H (9-20) mg/dL Creatinine 0.52 L 0.47 L (0.66-1.25) mg/dL Glucose 122 H 117 H (74-99) mg/dL POC Glucose (mg/dL) (75-99) mg/dL Magnesium 2.7 H 2.6 H (1.6-2.3) mg/dL ALT 18 L (21-72) U/L Alkaline Phosphatase 141 H 145 H (38-126) U/L Total Protein 5.7 L 6.0 L (6.3-8.2) g/dL Albumin 3.0 L 3.2 L (3.5-5.0) g/dL Triglycerides 160 H (<150) mg/dL 12/29/18 Range/Units 12:00 WBC (3.8-10.6) k/uL RBC (4.30-5.90) m/uL Hgb (13.0-17.5) gm/dL Hct (39.0-53.0) % MCHC (31.0-37.0) g/dL RDW (11.5-15.5) % Neutrophils # (1.3-7.7) k/uL Lymphocytes # (1.0-4.8) k/uL Chloride (98-107) mmol/L BUN (9-20) mg/dL Creatinine (0.66-1.25) mg/dL Glucose (74-99) mg/dL POC Glucose (mg/dL) 108 H (75-99) mg/dL Magnesium (1.6-2.3) mg/dL ALT (21-72) U/L Alkaline Phosphatase (38-126) U/L Total Protein (6.3-8.2) g/dL Albumin (3.5-5.0) g/dL Triglycerides (<150) mg/dL Microbiology - Last 24 Hours (Table) 12/24/18 11:30 Blood Culture - Preliminary Blood No Growth after 120 hours 12/24/18 09:40 Blood Culture - Preliminary Blood No Growth after 120 hours Assessment and Plan Plan: 1 acute hypoxic respiratory failure with development of diffuse breath and pulmonary infiltrates, most likely secondary to recurrent aspiration/aspiration pneumonia/acute lung injury secondary to aspiration. Malignancy is felt to be less likely due to the rapid progression of this pulmonary infiltrates. The patient is currently on high flow oxygen in addition to 100% nonrebreather facemask to maintain a saturation above 88% 2 metastatic esophageal cancer currently on FOLFOX systemic chemotherapy 3 recurrent aspiration with poor tolerability of oral intake and the patient is having frequent emesis 4 patient remains nothing by mouth, unable to meet caloric requirements secondary to above 5 leukocytosis 6 oropharyngeal candidiasis 7 severe generalized anxiety contributing to his ongoing shortness of breath Plan Condition is extremely critical. There is a high likelihood that the patient will fail high flow oxygen and he may require intubation mechanical ventilation. I made this very clear to the patient and his family. Meanwhile, we'll going to continue current antibiotic coverage. We'll add Diflucan. Continued IV Solu-Medrol. Aspiration precautions. We'll keep the patient nothing by mouth for now. Bedside swallow evaluation was done. However, in regards to his recurrent emesis and aspiration, I would hold off on any oral intake to prevent any ongoing aspiration proceed with TPN for nutritional support. Dietary consultation will place for TPN recommendations. The patient has a portable use the port for TPN administration. We'll monitor the white count. Condition is critical and the patient will be kept in ICU for further monitoring. Evaluation was on a more than 30 minutes. Time with Patient: Greater than 30
[2018-12-29] MEDS: INSULIN ASPART (NovoLOG) 100 UNIT/ML VIAL SQ SCH ×2 (14:55→18:33)
[2018-12-29] MEDS: PANTOPRAZOLE 40 MG/10 ML VIAL IVP SCH ×2 (15:00→21:05)
--- NOTE | 2018-12-29 15:52 | P.PN ---
Subjective Progress Note Date: 12/29/18 This is a 48-year-old gentleman with history of esophageal cancer, completed radiation and chemotherapy, history of gastric pull-through, recent biopsy reporting adenocarcinoma with chemotherapy resumed. T-max on admission 100.3, WBC 14.6, neutrophils normal, hemoglobin ,platelets, electrolytes essentially normal.Currently T-max 100.2, WBC improving, down to 12.4.. Maintained on IV fluid hydration of D5.45 MLS per hour, cefepime, vancomycin. Speech consulted to evaluate for silent aspiration(prior history of PEG tube which has been discontinued). Chest x-ray reported new multifocal airspace disease possible multifocal pneumonia versus pulmonary edema. F/U chest x-ray this morning with no significant change. On admission patient had been satting high 90s on room air. During the afternoon patient sats decreased to 93-94%. Last night, patient desatted to 70s to 80s %, A teamed called, received a dose of Lasix 40 IV push and placed on BiPAP. BiPAP weaned off currently on 15 L high flow nasal cannula this morning, maintaining O2 sats of 93%. No further nausea vomiting or diarrhea. Tolerating clear liquid diet. 12/26/2018 Tested negative for influenza, CT negative for PE, received a couple doses of Lasix for potential pulmonary edema, Swallow evaluation per speech therapy with no aspiration observed, universal aspiration precautions recommended..During the night, patient desatted, did not respond to BiPAP, transferred to ICU and placed on Airvo. Maintaining O2 sats of low 90s on 80% airvo. Maintained on IV antibiotics of vancomycin, Maxipime as per infectious disease. T-max 100.4,WBC WNL. Preliminary blood cultures negative at 24 hours .Continues on nebulized bronchodilators. Feels better this morning. 12/27/2018: She remains on high flow nasal cannula oxygen. Pulse ox is 92%. He remains on IV vancomycin plus Maxipime for antibiotic coverage. Solu-Medrol was started yesterday and seems to help. He remains nothing by mouth for suspected chronic aspiration. His is at bedside. Chest x-ray today shows worsening interstitial airspace disease. Clinically he feels better. Staff report he is doing better. 12/28/2018: Patient's chest x-ray shortness of breath continue worsen. He is unable to move significantly not descending. He remains on Airvo. His remains at bedside. I discussed this case with Dr. Wade, he is considering bronchoscopy, but fears that he would end up being intubated and unable to ween.Exact cause of his symptoms are unknown without multifactorial due to aspiration pneumonia, chemical pneumonitis due to chemotherapy, and other factors. 12/29/2018 Maintained on vancomycin and cefepime as per ID. Remains airvo de pendent, maintaining O2 sats of 95% on 60%. chest x-ray reporting stable bilateral pneumonia, ARDS, or pulmonary edema; diffuse increase in opacification to the right lung. Recurrent emesis , aspiration risks changed to NPO, TPN ordered. Blood sugars controlled. Oral thrush, Diflucan initiated. T-max 99.9, WBC down to 15.1. Objective - Vital Signs Vital signs: Vital Signs Temp 99.3 F 12/29/18 04:00 Pulse 113 H 12/29/18 08:05 Resp 34 H 12/29/18 07:00 BP 142/97 12/29/18 07:00 Pulse Ox 92 L 12/29/18 07:09 Intake & Output 12/28/18 12/29/18 12/29/18 18:59 06:59 18:59 Intake Total 1600 1250 75 Output Total 400 550 0 Balance 1200 700 75 Weight 78.4 kg 79.3 kg Intake: IV 1100 1250 75 .9 900 900 75 Cefepime 2 gm In Sodium 200 100 Chloride 0.9% 100 ml @ 200 mls/hr IVPB Q8HR [facility] Rx#:[id number] Vanco 250 Intake, IV Titration 500 Amount Vancomycin 1,500 mg In 500 Sodium Chloride 0.9% 250 ml @ 125 mls/hr IVPB ONCE ONE Rx#:[id number] Output: Urine 400 550 0 Other: Voiding Method Urinal Urinal - Exam VITAL SIGNS: As above GENERAL: Sitting up in bed, minimal distress, on AIRVO HEENT: Conjunctivae normal. eyes normal. NECK: Supple, No thyroid enlargement. No LNs CARDIOVASCULAR: S1, S2 regular. Mild tachycardia, No murmur, no rub, no gallop RESPIRATION: Breath sounds diminished with Scattered Coarse rhonchi with fine bibasilar crackles, greater in the left ABDOMEN: Soft, nondistended, nontender . No guarding. no masses palpable. Bowel sounds heard. LEGS: No edema. no swelling, no cyanosis, no clubbing. No calf tenderness. PSYCHIATRY: Alert and oriented -3, mood and affect normal. NERVOUS SYSTEM: Cranial N 2-12 grossly normal. Moves all 4 limbs. Diffuse weakness No focal deficits. Skin: Warm, dry, no lesions, no rash - Labs CBC & Chem 7: 12/29/18 03:30 12/29/18 11:45 Labs: Abnormal Lab Results - Last 24 Hours (Table) 12/29/18 12/29/18 Range/Units 03:30 03:30 WBC 15.1 H (3.8-10.6) k/uL RBC 3.67 L (4.30-5.90) m/uL Hgb 10.5 L (13.0-17.5) gm/dL Hct 34.3 L (39.0-53.0) % MCHC 30.5 L (31.0-37.0) g/dL RDW 17.6 H (11.5-15.5) % Neutrophils # 14.2 H (1.3-7.7) k/uL Lymphocytes # 0.4 L (1.0-4.8) k/uL Chloride 109 H (98-107) mmol/L BUN 21 H (9-20) mg/dL Creatinine 0.52 L (0.66-1.25) mg/dL Glucose 122 H (74-99) mg/dL Magnesium 2.7 H (1.6-2.3) mg/dL ALT 18 L (21-72) U/L Alkaline Phosphatase 141 H (38-126) U/L Total Protein 5.7 L (6.3-8.2) g/dL Albumin 3.0 L (3.5-5.0) g/dL Microbiology - Last 24 Hours (Table) 12/24/18 11:30 Blood Culture - Preliminary Blood No Growth after 96 hours 12/24/18 09:40 Blood Culture - Preliminary Blood No Growth after 96 hours Assessment and Plan Assessment: (1) Acute respiratory failure with hypoxia, multifactorial, secondary to recurrent aspiration, acute pneumonitis, chronic aspiration pneumonia, possible chemotherapy induced injury, possible metastatic lymphangitic Current Visit: Yes Status: Acute Code(s): J96.01 - ACUTE RESPIRATORY FAILURE WITH HYPOXIA SNOMED Code(s): 23376960 (2) Acute pneumonitis Current Visit: Yes Status: Acute Code(s): J18.9 - PNEUMONIA, UNSPECIFIED ORGANISM SNOMED Code(s): 287688785 (3) Aspiration pneumonia Current Visit: Yes Status: Acute Code(s): J69.0 - PNEUMONITIS DUE TO INHALATION OF FOOD AND VOMIT SNOMED Code(s): 159435981 (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 Recurrent esophageal cancer recent biopsy reporting adenocarcinoma with metastasis to L3 spine; reports and to the stomach, chemotherapy resumed Current Visit: No Status: Acute Code(s): C15.9 - MALIGNANT NEOPLASM OF ESOPHAGUS, UNSPECIFIED SNOMED Code(s): 869041328 (7) Exercise-induced asthma (8) oral candidiasis (9) anxiety Plan: Continue current medication regime ,monitoring and symptomatic treatment. Strict aspiration precautions .Continue on antibiotics, nebulized bronc hodilators, IV steroids. TPN ordered with NovoLog sliding scale ordered accordingly .IVPB Diflucan. Follow cultures closely. Follow closely with multiple consults .Prognosis guarded given multiple complex medical issues. The impression and plan of care has been dictated as directed. : I performed a history and examination of this patient, discussed the same with the dictator. I agree with the dictator's note ,documented as a scribe. Any additional findings or plans will be noted. Time taken: 35 minutes
--- NOTE | 2018-12-29 17:24 | XR ---
EXAMINATION TYPE: XR chest 1V portable DATE OF EXAM: 12/29/2018 COMPARISON: Today HISTORY: Intubation TECHNIQUE: Single frontal view of the chest is obtained. FINDINGS: There is right-sided central venous catheter with the tip in the right atrium. There is pu lmonary edema. There is mild blunting of the costophrenic angles. There is nasogastric tube with the tip behind the heart. There is possible hiatal hernia. NG tube is not clearly in the stomach. There i s endotracheal tube with the tip 5 cm from the raul. IMPRESSION: Pulmonary edema is moderately severe and not significantly different than exam this morn ing at 6:00 PM. I would consider both RDS and congestive heart failure.
[2018-12-29] MEDS ORDERED: CISATRACURIUM 2 MG/ML 5 ML VIAL IV ONE ×2 (17:46→18:36)
--- NOTE | 2018-12-29 17:52 | XR ---
EXAMINATION TYPE: XR chest 1V portable DATE OF EXAM: 12/29/2018 COMPARISON: Today HISTORY: Central line placement TECHNIQUE: Single frontal view of the chest is obtained. FINDINGS: There is severe pulmonary edema. There is right central venous catheter with the tip over the right atrium. There is left jugular catheter with tip in the superior vena cava. Endotracheal tub e is 5 cm from the raul. There is slight blunting of the costophrenic angles. There are chest leads . IMPRESSION: Pulmonary edema. No change compared to exam half-hour ago. Small pleural effusions.
[2018-12-29 17:56] LABS: Glucose,Whole Blood 179 mg/dL (75-99)
[2018-12-29] MEDS ORDERED: FAT EMULSION 20% 250 ML in EMPTY BAG 1 BAG IV SCH (18:00)
[2018-12-29 18:01] LABS: Allen Test Performed? Yes
[2018-12-29 18:03] LABS: ABG Base Excess 10.7 mmol/L; ABG HCO3 15 mmol/L (21-25); ABG PO2 133 mmHg (83-108); ABG TCO2 15 mmol/L (19-24)
[2018-12-29 18:04] LABS: ABG Oxygen Saturation 98.1 % (94-97); ABG PCO2 26 mmHg (35-45); ABG PH 7.36 (7.35-7.45)
--- NOTE | 2018-12-29 18:20 | PCN ---
PROCEDURE NOTE TRIPLE LUMEN CATHETER PLACEMENT: PREOP DIAGNOSES: Acute bilateral pneumonia/aspiration/hypoxic respiratory failure. POSTOP DIAGNOSES: Acute bilateral pneumonia/aspiration/hypoxic respiratory failure. Indication Hemodynamic monitoring/Intravenous access. A time-out was completed verifying correct patient, procedure, site, positioning, and implant(s) or special equipment if applicable. The patient was placed in a dependent position appropriate for triple lumen catheter placement based on the vein to be cannulated. The patient's left neck was prepped and draped in sterile fashion. 1% Lidocaine was used to anesthetize the surrounding skin area. A triple lumen 9F Cordis catheter was introduced into the internal jugular vein using Seldinger technique. The catheter was threaded smoothly over the guide wire and appropriate blood return was obtained. Each lumen of the catheter was evacuated of air and flushed with sterile saline. The catheter was then sutured in place to the skin and a sterile dressing applied. Perfusion to the extremity distal to the point of catheter insertion was checked and found to be adequate. The procedure was done without any complications. MMODL / IJN: [id number] /
--- NOTE | 2018-12-29 18:20 | PCN ---
PROCEDURE NOTE PREOP DIAGNOSES: Acute bilateral pneumonia/aspiration/hypoxic respiratory failure. POSTOP DIAGNOSES: Acute bilateral pneumonia/aspiration/hypoxic respiratory failure. PROCEDURE PERFORMED: Intubation ENDOTRACHEAL INTUBATION: Respiratory compromise. A time-out was completed verifying correct patient, procedure, site, positioning, and implant(s) or special equipment if applicable. The patient was positioned appropriately and a #4 MAC blade and a #7.5 endotracheal tube was placed under direct laryngoscopy. The tube was anchored at 22 cm at the teeth. Correct placement was confirmed by presence of bilateral breath sounds without air sounds in the abdomen on auscultation. An end-tidal CO2 monitor was also used to confirm tracheal placement of the ET tube. A chest x-ray was ordered to assess for pneumothorax and verify endotracheal tube placement. The patient tolerated the procedure well and there were no complications. MMODL / IJN: [id number] /
--- NOTE | 2018-12-29 18:26 | PCN ---
PROCEDURE NOTE ARTERIAL LINE PLACEMENT: PREOP DIAGNOSES: Acute bilateral pneumonia/aspiration/hypoxic respiratory failure. POSTOP DIAGNOSES: Acute bilateral pneumonia/aspiration/hypoxic respiratory failure. Indications: Hemodynamic monitoring. A time-out was completed verifying correct patient, procedure, site, positioning, and implant(s) or special equipment if applicable. Jose's test was performed to ensure adequate perfusion. The patient's left wrist was prepped and draped in sterile fashion. 1% Lidocaine was used to anesthetize the area. An 18G Arrow arterial line was introduced into the radial artery. The catheter was threaded over the guide wire and the needle was removed with appropriate pulsatile blood return. Blood loss was minimal. The catheter was then sutured in place to the skin and a sterile dressing applied. Perfusion to the extremity distal to the point of catheter insertion was checked and found to be adequate. The patient tolerated the procedure well and there were no complications. MMODL / IJN: [id number] /
[2018-12-29] MEDS: MEROPENEM 1 GM in SODIUM CHLORIDE 0.9% 100 ML IVPB SCH (18:34)
[2018-12-29] MEDS: CISATRACURIUM 200 MG in SODIUM CHLORIDE 0.9% 180 ML IV SCH (19:11)
[2018-12-29] MEDS: PROPOFOL 1,000 MG in EMPTY BAG 1 BAG IV SCH ×2 (20:15→23:16)
[2018-12-29] MEDS: traZODone HCL 50 MG TAB PO SCH (20:59)
[2018-12-29] MEDS ORDERED: FAMOTIDINE 20 MG/2 ML VIAL IV SCH (21:00)
[2018-12-29] MEDS: ARTIFICIAL TEARS-HYPROMELLOSE DROPS 15 ML BTL BOTH EYES SCH (21:04)
[2018-12-29] MEDS: HYDROmorphone 1 MG/ML 1 ML SYRINGE IVP PRN (21:05)
--- NOTE | 2018-12-29 21:31 | P.PN ---
Subjective Progress Note Date: 12/29/18 48-year-old male who is known history of esophageal cancer status post the gastric pull-through procedure. Has completed his original course of chemotherapy and radiation therapy. Was having increasing difficulties and recent biopsies continue to show evidence of adenocarcinoma. He is receiving further courses of chemotherapy at this time. He however now presents to hospital with fever of 103 with chills and rigors and feeling poorly. He has minimal pulmonary symptoms with some cough without much sputum production and no hemoptysis. He relates since coming to Hospital his fever and chills are starting to improve. 12/25/2018 Does feel quite poorly overall. Status has worsened he is more short of breath feels worse today. Requiring increasing amounts of oxygen. Patient still feels very poorly. 12/26/2018 patient's feeling better today off of BiPAP and on Airvo it's much more comfortable and is less short of breath. The BiPAP positive pressure causing nausea and emesis, now improved. 12/27/2018 patient has bouts of nausea which worsens the SOB. Denies fever ,Airvo is well tolerated. December 28, 2018 patient remains on high flow oxygen, is very tired and is easily agitated. Status is not showing much improvement. Patient's is present. 12/29/2018 patient's status has worsened and is now been intubated he sedated and mechanically ventilated, A-line and central line had been placed. Despite 100% oxygen, PEEP of 15 oxygenation is still marginal. Objective - Vital Signs Vital signs: Vital Signs Temp 97.4 F L 12/29/18 12:00 Pulse 140 H 12/29/18 19:45 Resp 9 L 12/29/18 19:45 BP 155/104 12/29/18 19:45 Pulse Ox 94 L 12/29/18 19:45 Intake & Output 12/29/18 12/29/18 12/30/18 06:59 18:59 06:59 Intake Total 1250 1460 315 Output Total 550 425 395 Balance 700 1035 -80 Weight 79.3 kg 79.3 kg Intake: IV 1250 1350 285 .9 900 900 225 Cefepime 2 gm In Sodium 100 200 Chloride 0.9% 100 ml @ 200 mls/hr IVPB Q8HR [facility] Rx#:[id number] Mvi, Adult No.4 with Vit 60 K 10 ml Trace (Conc-1Ml/ Dose) 1 ml Sodium Acetate 35 meq Potassium Chloride 10 meq Potassium Phosphate 15 mmol Calcium Gluconate 1 gm In Amino Acid 5%-D15w 1,000 ml @ 30 mls/hr IV .Q24H [facility] Rx#:[id number] Vanco 250 250 Intake, IV Titration 110 30 Amount Fluconazole in NaCl,Iso- 50 Osm 100 mg In Saline 1 50ml.bag @ 50 mls/hr IVPB DAILY [facility] Rx#:[id number] Mvi, Adult No.4 with Vit 30 K 10 ml Trace (Conc-1Ml/ Dose) 1 ml Sodium Acetate 35 meq Potassium Chloride 10 meq Potassium Phosphate 15 mmol Calcium Gluconate 1 gm In Amino Acid 5%-D15w 1,000 ml @ 30 mls/hr IV .Q24H [facility] Rx#:[id number] Sodium Acetate 35 meq 60 Potassium Chloride 10 meq Potassium Phosphate 15 mmol Calcium Gluconate 1 gm In Amino Acid 5%-D15w 1,000 ml @ 85 mls/hr IV . BY DURATION [facility] Rx#: [id number] Output: Urine 550 425 395 Other: Voiding Method Urinal Indwelling Catheter # Voids 1 ABP, PAP, CO, CI - Last Documented Arterial Blood Pressure 117/66 - Exam 48-year-old male has now been intubated is sedated and mechanically Ventilated HEENT: Anicteric conjunctiva are pink and moist nasal mucosa grossly intact without significant lesions, there is no thrush. Neck: no lymphadenopathy endotracheal tube Lungs: Symmetrical air entry is noted coarse scattered crackles patient is h aving some gasping respirations with each breath Heart: Regular rate and rhythm with an audible S1-S2, no S3 no S4. There is no significant murmur click or rub, PMI was nondisplaced. Abdomen: Positive bowel sounds soft and nontender without palpable masses or organomegaly. There was no guarding or rebound. Prior PEG tube site is well- healed Extremities: The upper extremities have excellent pulses they are symmetric, no significant petechiae or telangiectasia. No splinter hemorrhages were noted. The lower extremities are free from significant edema. The peripheral pulses were 2+ and symmetric. Evidence of muscular wasting Neuro:sedated - Labs CBC & Chem 7: 12/29/18 03:30 12/29/18 11:45 Labs: Abnormal Lab Results - Last 24 Hours (Table) 12/29/18 12/29/18 12/29/18 Range/Units 03:30 03:30 11:45 WBC 15.1 H (3.8-10.6) k/uL RBC 3.67 L (4.30-5.90) m/uL Hgb 10.5 L (13.0-17.5) gm/dL Hct 34.3 L (39.0-53.0) % MCHC 30.5 L (31.0-37.0) g/dL RDW 17.6 H (11.5-15.5) % Neutrophils # 14.2 H (1.3-7.7) k/uL Lymphocytes # 0.4 L (1.0-4.8) k/uL ABG pCO2 (35-45) mmHg ABG pO2 (83-108) mmHg ABG HCO3 (21-25) mmol/L ABG Total CO2 (19-24) mmol/L ABG O2 Saturation (94-97) % Chloride 109 H 109 H (98-107) mmol/L BUN 21 H 22 H (9-20) mg/dL Creatinine 0.52 L 0.47 L (0.66-1.25) mg/dL Glucose 122 H 117 H (74-99) mg/dL POC Glucose (mg/dL) (75-99) mg/dL Magnesium 2.7 H 2.6 H (1.6-2.3) mg/dL ALT 18 L (21-72) U/L Alkaline Phosphatase 141 H 145 H (38-126) U/L Total Protein 5.7 L 6.0 L (6.3-8.2) g/dL Albumin 3.0 L 3.2 L (3.5-5.0) g/dL Triglycerides 160 H (<150) mg/dL 12/29/18 12/29/18 12/29/18 Range/Units 12:00 17:54 17:58 WBC (3.8-10.6) k/uL RBC (4.30-5.90) m/uL Hgb (13.0-17.5) gm/dL Hct (39.0-53.0) % MCHC (31.0-37.0) g/dL RDW (11.5-15.5) % Neutrophils # (1.3-7.7) k/uL Lymphocytes # (1.0-4.8) k/uL ABG pCO2 26 L (35-45) mmHg ABG pO2 133 H (83-108) mmHg ABG HCO3 15 L (21-25) mmol/L ABG Total CO2 15 L (19-24) mmol/L ABG O2 Saturation 98.1 H (94-97) % Chloride (98-107) mmol/L BUN (9-20) mg/dL Creatinine (0.66-1.25) mg/dL Glucose (74-99) mg/dL POC Glucose (mg/dL) 108 H 179 H (75-99) mg/dL Magnesium (1.6-2.3) mg/dL ALT (21-72) U/L Alkaline Phosphatase (38-126) U/L Total Protein (6.3-8.2) g/dL Albumin (3.5-5.0) g/dL Triglycerides (<150) mg/dL Microbiology - Last 24 Hours (Table) 12/24/18 11:30 Blood Culture - Preliminary Blood No Growth after 120 hours 12/24/18 09:40 Blood Culture - Preliminary l ood No Growth after 120 hours Microbiology 12/24/18 11:30 Blood Blood Culture - Preliminary No Growth after 120 hours 12/24/18 09:40 Blood Blood Culture - Preliminary No Growth after 120 hours 12/26/18 03:35 Sputum Gram Stain - Final 12/26/18 03:35 Sputum Sputum Culture - Final Assessment and Plan (1) Esophageal cancer Current Visit: No Status: Acute Code(s): C15.9 - MALIGNANT NEOPLASM OF ESOPHAGUS, UNSPECIFIED SNOMED Code(s): 158566010 (2) Fever Narrative/Plan: 48 -year-old male presents to Hospital feeling poorly with onset of increasing fever malaise and chills. The patient has a known history of esophageal cancer, status post gastric pull-through who has already received his original course of chemotherapy and radiation. But is now receiving further chemotherapy with evidence of ongoing adenocarcinoma. The patient is starting to feel somewhat better since admission and initiation of fluids and antibiotic therapy. The patient has had imaging studies including the computed tomography scan that is revealing some ongoing difficulties with pulmonary infiltrates. Patient is currently receiving cefepime and vancomycin and tolerating that well. We'll need to have further cultures to help further define his antibiotic thera py. He however is not neutropenic at this time. Would like to have the speech pathologist to evaluate the possibility of silent aspiration or reflux that could be causing the current pulmonary changes by computed tomography scan. Leukocytosis appears to be in the bases of the current infectious process. 12/25/2018 patient is had worsening of his status. Respiratory status is worsening. Concern as to ongoing aspiration as etiology for his current respiratory distress and pulmonary changes. CT angiogram requested. Pulmonary critical care evaluating There are multiple other concerns including lymphangitic spread of his malignancy, acute lung injury, acute lung injury from chemotherapy. We've asked for speech therapy to evaluate if he is having ongoing significant aspiration. Fever has responded antibiotic therapy await cultures to further direct antibiotic therapy. 12/26/2018 patient's respiratory status is now stabilized on high flow oxygen. His nausea is improved no further emesis. Ongoing evaluation as to the etiology of his pulmonary infiltrates, however ongoing aspiration is of great concern. His fevers improved. We'll continue current antibiotic therapy while evalua tions continue. December 27, 2018 patient is stable today. He is without other new acute complaints. Does have occasional waves of nausea which became more short of breath other than this he has no new complaints today. He is afebrile. Continues to struggle with his intake. We have asked for protein supplements to try to improve his strength. December 28, 2018 patient is not improving. He's been made fully nothing by mouth again. Respiratory status is not improving despite the high flow oxygen which is now been increased to even a higher level. The patient is dyspneic with any activity. I did discuss with the that it is likely in the next short period of time if he does not improve he will require intubation mechanical ventilation. And with his status likely would not be able to come well enough to ever come off the ventilator. She does understand relates that would give her an opportunity to be able to say goodbye as well as the family. 12/29/2018 the patient continues to decline. He is now been intubated, sedated and mechanically ventilated. Marginal oxygenation only is being achieved with 100% oxygen PEEP of 15. Pulmonary critical care is hopeful that once he is stabilized his oxygenation will start to improve. given the patient is likely having ongoing aspiration event Prognosis is very poor. Current Visit: Yes Status: Acute Code(s): R50.9 - FEVER, UNSPECIFIED SNOMED Code(s): 182137277 (3) Pulmonary infiltrates Current Visit: Yes Status: Acute Code(s): R91.8 - OTHER NONSPECIFIC ABNORMAL FINDING OF LUNG FIELD SNOMED Code(s): 759148629
[2018-12-29] MEDS ORDERED: SODIUM CHLORIDE 0.9% 1,000 ML IV ONE ×2 (22:27→23:15)
[2018-12-29] MEDS: NOREPINEPHRINE 4 MG in SODIUM CHLORIDE 0.9% 250 ML IV SCH (23:58)
[2018-12-29 23:59] LABS: Glucose,Whole Blood 172 mg/dL (75-99)
[2018-12-30] MEDS: HEPARIN SODIUM,PORCINE 5,000 UNIT/ML 1 ML VIAL SQ SCH ×4 (00:16→23:08)
[2018-12-30] MEDS: methylPREDNISolone SOD SUCCI 125 MG/2 ML VIAL IV SCH ×4 (00:17→23:08)
[2018-12-30] MEDS: INSULIN ASPART (NovoLOG) 100 UNIT/ML VIAL SQ SCH ×5 (00:17→23:35)
[2018-12-30] MEDS: MEROPENEM 1 GM in SODIUM CHLORIDE 0.9% 100 ML IVPB SCH ×5 (00:33→23:37)
[2018-12-30] MEDS: IPRATROPIUM-ALBUTEROL 3 ML NEB INHALATION SCH ×6 (03:26→23:15)
[2018-12-30 05:13] LABS: ABG Oxygen Saturation 97.8 % (94-97); ABG PO2 229 mmHg (83-108); Allen Test Performed? Yes
[2018-12-30] MEDS: NOREPINEPHRINE 4 MG in SODIUM CHLORIDE 0.9% 250 ML IV SCH (05:27)
[2018-12-30] MEDS: PROPOFOL 1,000 MG in EMPTY BAG 1 BAG IV SCH ×4 (05:27→23:07)
[2018-12-30] MEDS: ARTIFICIAL TEARS-HYPROMELLOSE DROPS 15 ML BTL BOTH EYES SCH ×7 (05:28→23:08)
[2018-12-30 05:30] LABS: ABG PCO2 >120 mmHg (35-45); ABG PH <7.00 (7.35-7.45)
[2018-12-30] MEDS: SODIUM CHLORIDE 0.9% 1,000 ML IV SCH ×2 (05:30→21:26)
[2018-12-30 05:56] LABS: Glucose,Whole Blood 170 mg/dL (75-99)
[2018-12-30 06:03] LABS: African American GFR (CKD) >90 (>60 ml/min/1.73 sqM); Anion Gap 0 mmol/L; Blood Urea Nitrogen 24 mg/dL (9-20); Calcium 8.3 mg/dL (8.4-10.2); Carbon Dioxide 33 mmol/L (22-30); Chloride 110 mmol/L (98-107); Glucose 191 mg/dL (74-99); Magnesium 2.7 mg/dL (1.6-2.3); Phosphorus 6.5 mg/dL (2.5-4.5); Sodium 143 mmol/L (137-145)
[2018-12-30 06:13] LABS: ABG Oxygen Saturation 97.2 % (94-97); ABG PO2 139 mmHg (83-108); Allen Test Performed? Yes
--- NOTE | 2018-12-30 06:16 | XR ---
EXAM: XR Chest, 1 View. CLINICAL HISTORY: Tube placement TECHNIQUE: Frontal view of the chest. COMPARISON: 12/29/18 at 1714 hrs. FINDINGS: Endotracheal tube appears retracted or repositioned, with the tip approximately 7.5 cm above the raul. Enteric tube is unchanged in position, with the tip above the diaphragm, likely in a large hiatal hernia. Left IJ central venous catheter tip is in the distal SVC. Right anterior chest wall Port-A-Cath with catheter tip at SVC/RA junction. Slight interval improvement in diffuse pulmonary edema when compared to the prior exam performed yesterday evening. Persistent interstitial opacities are seen bilaterally, right more than left. Bibasilar atelectasis, without evidence of acute airspace consolidation. Small bilateral pleural effusions. No pneumothorax. Heart size normal. No mediastinal widening or shift. No acute osseous abnormality. IMPRESSION: Retracted or repositioned endotracheal tube with tip now 7.5 cm above the raul. Remaining tubes and catheters are unchanged in position. Interval improvement in pulmonary edema.
[2018-12-30] MEDS: VANCOMYCIN 1,500 MG in SODIUM CHLORIDE 0.9% 250 ML IVPB SCH ×3 (06:17→23:06)
[2018-12-30 06:18] LABS: ABG PCO2 >120 mmHg (35-45); ABG PH <7.00 (7.35-7.45)
[2018-12-30 06:25] LABS: Potassium 6.2 mmol/L (3.5-5.1)
[2018-12-30] MEDS ORDERED: SODIUM BICARB 8.4% 50 ML SYR (1 MEQ/ML) IV STA (06:32)
[2018-12-30] MEDS ORDERED: DEXTROSE 50% SYRINGE 50 ML IVP STA (06:33)
[2018-12-30] MEDS ORDERED: INSULIN REGULAR 100 UNIT/ML VIAL IV ONE (06:33)
[2018-12-30 06:37] LABS: Anisocytosis Slight; HCT 39.7 % (39.0-53.0); HGB 11.2 gm/dL (13.0-17.5); Hypochromasia Marked; MCH 28.7 pg (25.0-35.0); MCHC 28.2 g/dL (31.0-37.0); Macrocytosis Moderate; Mean Platelet Volume 8.6; Platelet Count 233 k/uL (150-450); Poikilocytosis Slight; RBC 3.91 m/uL (4.30-5.90); RDW 17.9 % (11.5-15.5)
[2018-12-30 06:46] LABS: MCV 101.7 fL (80.0-100.0); WBC 52.7 k/uL (3.8-10.6)
[2018-12-30 06:58] LABS: Allen Test Performed? Yes
[2018-12-30 07:03] LABS: ABG Base Excess 3.9 mmol/L; ABG HCO3 33 mmol/L (21-25); ABG Oxygen Saturation 97.3 % (94-97); ABG PO2 122 mmHg (83-108); ABG TCO2 36 mmol/L (19-24)
[2018-12-30 07:05] LABS: ABG PCO2 101 mmHg (35-45); ABG PH 7.12 (7.35-7.45)
[2018-12-30] MEDS: BUDESONIDE 1 MG/2 ML NEBU INHALATION SCH ×2 (07:26→20:12)
[2018-12-30] MEDS: FORMOTEROL FUMARATE 20 MCG/2 ML NEBU INHALATION SCH ×2 (07:26→20:12)
--- NOTE | 2018-12-30 07:59 | P.PN ---
Subjective Progress Note Date: 12/30/18 On 12/30/2018 I'm seeing this patient for a follow-up. The patient got intubated yesterday afternoon and he was placed on propofol for sedation, Nimbex for paralysis and the patient was laced on a volume control mode of ventilation with tidal volume of 325 with a rate of 24 and an FiO2 of 20% with a PEEP of 15. Initial blood gases were satisfactory. Subsequent blood gas from earlier this morning showed severe respiratory acidosis with a pH of 6.88 and a pCO2 of about 100. PO2 was adequate at above 200. At that point further adjustments were done on the mechanical ventilator. His current vent setting includes a tidal volume of 400 which was subsequently dropped down to 380 cc with a respiratory rate of 38. PEEP currently is at 14 with an FiO2 of 80%. Chest x-ray showing diffuse but the pulmonary infiltrates typical of bilateral pneumonia/ARDS. Static pressures around 34-35. A son this severe metabolic acidosis, the patient had developed some acute hyperkalemia. Potassium level came up to 6.2 and this was treated with 2 A of sodium bicarb and the patient was given D50 and insulin and repeat potassium level is pending for now. No EKG changes. He was in sinus tachycardia with gradually improved. He is hypotensive. The hypertension involved throughout the night and the patient became progressively more hypotensive and currently is on 0.2 g per KG per minute of norepinephrine infusion. Also, his white cell count came up to 52. Meanwhile, the patient was modified in terms of antibiotic coverage and placed on a combination of Merrem and vancomycin. The patient was also started on Diflucan regarding some oropharyngeal candidiasis. TPN is running through his MediPort he had the patient also has a left IJ triple-lumen catheter. This was inserted yesterday post intubation. ET tube was on and off leaking and the cuff was reinflated an adequate positioning has been done. ET tube is still high in the trachea and this is to be further pushed in. He is on IV Solu-Medrol 60 mg every 8 hours. No diarrhea. Abdomen is soft. Afebrile. Repeat cultures are to be sent today. Family has been updated on his condition. Conditions remains extremely critical for now. Objective - Vital Signs Vital signs: Vital Signs Temp 97.4 F L 12/30/18 05:45 Pulse 106 H 12/30/18 07:26 Resp 38 H 12/30/18 07:00 BP 90/63 12/29/18 23:15 Pulse Ox 97 12/30/18 07:00 Intake & Output 12/29/18 12/30/18 12/30/18 18:59 06:59 18:59 Intake Total 1460 4406.263 105 Output Total 425 832 27 Balance 1035 3574.263 78 Weight 79.3 kg 77.1 kg Intake: IV 1350 3755 105 .9 900 2825 75 Cefepime 2 gm In Sodium 200 Chloride 0.9% 100 ml @ 200 mls/hr IVPB Q8HR [facility] Rx#:[id number] Meropenem 1 gm In Sodium 100 Chloride 0.9% 100 ml @ 200 mls/hr IVPB Q8HR [facility] Rx#:[id number] Mvi, Adult No.4 with Vit 330 30 K 10 ml Trace (Conc-1Ml/ Dose) 1 ml Sodium Acetate 35 meq Potassium Chloride 10 meq Potassium Phosphate 15 mmol Calcium Gluconate 1 gm In Amino Acid 5%-D15w 1,000 ml @ 30 mls/hr IV .Q24H [facility] Rx#:[id number] Vanco 250 500 Intake, IV Titration 110 621.263 Amount Cisatracurium 200 mg In 55.034 Sodium Chloride 0.9% 180 ml @ 1 MCG/KG/MIN 4.758 mls/hr IV .Q24H [facility] Rx#: [id number] Fluconazole in NaCl,Iso- 50 Osm 100 mg In Saline 1 50ml.bag @ 50 mls/hr IVPB DAILY [facility] Rx#:[id number] Mvi, Adult No.4 with Vit 30 K 10 ml Trace (Conc-1Ml/ Dose) 1 ml Sodium Acetate 35 meq Potassium Chloride 10 meq Potassium Phosphate 15 mmol Calcium Gluconate 1 gm In Amino Acid 5%-D15w 1,000 ml @ 30 mls/hr IV .Q24H [facility] Rx#:[id number] Norepinephrine 4 mg In 336.229 Sodium Chloride 0.9% 250 ml @ 0.05 MCG/KG/MIN 15. 107 mls/hr IV .[id number] [facility] Rx#:[id number] Propofol 1,000 mg In 200 Empty Bag 1 bag @ Titrate IV .Q0M [facility] Rx#: [id number] Sodium Acetate 35 meq 60 Potassium Chloride 10 meq Potassium Phosphate 15 mmol Calcium Gluconate 1 gm In Amino Acid 5%-D15w 1,000 ml @ 85 mls/hr IV . BY DURATION [facility] Rx#: [id number] Other 30 Output: Urine 425 832 27 Other: Voiding Method Indwelling Catheter Indwelling Catheter # Voids 1 ABP, PAP, CO, CI - Last Documented Arterial Blood Pressure 92/53 - Exam General: Intubated, sedated, paralyzed, calm and comfortable and symptoms with the mechanical ventilator. Orogastric and orotracheal tube are both in place. The patient also has a left IJ triple-lumen catheter and a Mediport over the anterior chest area. No evidence of any leaks around the oral tracheal tube at this point in time. Head: Normocytic, Atraumatic Neck: Supple, Neck was supple and without jugular venous distension, thyromegaly, or carotid bruits. Carotids were easily palpable bilaterally. There was no adenopathy., There is oropharyngeal candidiasis Mouth: No Lesions, No Thrush, the mucous membranes are extremely dry Eyes: Non-sclerotic No Palpable cervical, supraclavicular, axillary adenopathy Heart: Cardiac exam revealed the PMI to be normally situated and sized. The rhythm was regular and no extrasystoles were noted during several minutes of auscultation. The first and second heart sounds were normal and physiologic splitting of the second heart sound was noted. There were no murmurs, rubs, clicks, or gallops. Lungs: The patient is crackles in the mid and lower lung martínez bilaterally left base more than right. Vessels are equal and symmetrical otherwise. Abdomen: Soft, Non-Distended, Non-Tended, BSx4 Extremities: No Edema, Equal Strength Neurological: An adequate neurologic exam cannot be done as the patient is currently sedated intubated paralyzed Psych: Unable to perform due to the above-mentioned Examination of the skin revealed no evidence of significant rashes, suspicious appearing nevi or other concerning lesions. - Labs CBC & Chem 7: 12/30/18 05:20 12/30/18 05:20 Labs: Abnormal Lab Results - Last 24 Hours (Table) 12/29/18 12/29/18 12/29/18 Range/Units 11:45 12:00 17:54 WBC (3.8-10.6) k/uL RBC (4.30-5.90) m/uL Hgb (13.0-17.5) gm/dL MCV (80.0-100.0) fL MCHC (31.0-37.0) g/dL RDW (11.5-15.5) % ABG pH (7.35-7.45) ABG pCO2 (35-45) mmHg ABG pO2 (83-108) mmHg ABG HCO3 (21-25) mmol/L ABG Total CO2 (19-24) mmol/L ABG O2 Saturation (94-97) % Potassium (3.5-5.1) mmol/L Chloride 109 H (98-107) mmol/L Carbon Dioxide (22-30) mmol/L BUN 22 H (9-20) mg/dL Creatinine 0.47 L (0.66-1.25) mg/dL Glucose 117 H (74-99) mg/dL POC Glucose (mg/dL) 108 H 179 H (75-99) mg/dL Calcium (8.4-10.2) mg/dL Phosphorus (2.5-4.5) mg/dL Magnesium 2.6 H (1.6-2.3) mg/dL Alkaline Phosphatase 145 H (38-126) U/L Total Protein 6.0 L (6.3-8.2) g/dL Albumin 3.2 L (3.5-5.0) g/dL Triglycerides 160 H (<150) mg/dL 12/29/18 12/29/18 12/30/18 Range/Units 17:58 23:55 05:11 WBC (3.8-10.6) k/uL RBC (4.30-5.90) m/uL Hgb (13.0-17.5) gm/dL MCV (80.0-100.0) fL MCHC (31.0-37.0) g/dL RDW (11.5-15.5) % ABG pH <7.00 L* (7.35-7.45) ABG pCO2 26 L >120 H* (35-45) mmHg ABG pO2 133 H 229 H (83-108) mmHg ABG HCO3 15 L (21-25) mmol/L ABG Total CO2 15 L (19-24) mmol/L ABG O2 Saturation 98.1 H 97.8 H (94-97) % Potassium (3.5-5.1) mmol/L Chloride (98-107) mmol/L Carbon Dioxide (22-30) mmol/L BUN (9-20) mg/dL Creatinine (0.66-1.25) mg/dL Glucose (74-99) mg/dL POC Glucose (mg/dL) 172 H (75-99) mg/dL Calcium (8.4-10.2) mg/dL Phosphorus (2.5-4.5) mg/dL Magnesium (1.6-2.3) mg/dL Alkaline Phosphatase (38-126) U/L Total Protein (6.3-8.2) g/dL Albumin (3.5-5.0) g/dL Triglycerides (<150) mg/dL 12/30/18 12/30/18 12/30/18 Range/Units 05:20 05:20 05:42 WBC 52.7 H* (3.8-10.6) k/uL RBC 3.91 L (4.30-5.90) m/uL Hgb 11.2 L (13.0-17.5) gm/dL MCV 101.7 H D (80.0-100.0) fL MCHC 28.2 L (31.0-37.0) g/dL RDW 17.9 H (11.5-15.5) % ABG pH (7.35-7.45) ABG pCO2 (35-45) mmHg ABG pO2 (83-108) mmHg ABG HCO3 (21-25) mmol/L ABG Total CO2 (19-24) mmol/L ABG O2 Saturation (94-97) % Potassium 6.2 H* (3.5-5.1) mmol/L Chloride 110 H (98-107) mmol/L Carbon Dioxide 33 H (22-30) mmol/L BUN 24 H (9-20) mg/dL Creatinine (0.66-1.25) mg/dL Glucose 191 H (74-99) mg/dL POC Glucose (mg/dL) 170 H (75-99) mg/dL Calcium 8.3 L (8.4-10.2) mg/dL Phosphorus 6.5 H (2.5-4.5) mg/dL Magnesium 2.7 H (1.6-2.3) mg/dL Alkaline Phosphatase (38-126) U/L Total Protein (6.3-8.2) g/dL Albumin (3.5-5.0) g/dL Triglycerides (<150) mg/dL 12/30/18 12/30/18 Range/Units 06:05 06:55 WBC (3.8-10.6) k/uL RBC (4.30-5.90) m/uL Hgb (13.0-17.5) gm/dL MCV (80.0-100.0) fL MCHC (31.0-37.0) g/dL RDW (11.5-15.5) % ABG pH <7.00 L* 7.12 L* (7.35-7.45) ABG pCO2 >120 H* 101 H* (35-45) mmHg ABG pO2 139 H 122 H (83-108) mmHg ABG HCO3 33 H (21-25) mmol/L ABG Total CO2 36 H (19-24) mmol/L ABG O2 Saturation 97.2 H 97.3 H (94-97) % Potassium (3.5-5.1) mmol/L Chloride (98-107) mmol/L Carbon Dioxide (22-30) mmol/L BUN (9-20) mg/dL Creatinine (0.66-1.25) mg/dL Glucose (74-99) mg/dL POC Glucose (mg/dL) (75-99) mg/dL Calcium (8.4-10.2) mg/dL Phosphorus (2.5-4.5) mg/dL Magnesium (1.6-2.3) mg/dL Alkaline Phosphatase (38-126) U/L Total Protein (6.3-8.2) g/dL Albumin (3.5-5.0) g/dL Triglycerides (<150) mg/dL Microbiology - Last 24 Hours (Table) 12/29/18 23:54 Sputum Culture - Preliminary Sputum 12/24/18 11:30 Blood Culture - Preliminary Blood No Growth after 120 hours 12/24/18 09:40 Blood Culture - Preliminary Blood No Growth after 120 hours Assessment and Plan Plan: 1 acute hypoxic respiratory failure/ARDS with diffuse bilateral pulmonary infiltrates currently intubated on a mechanical ventilator. The patient presented with ongoing aspiration and subsequently developed diffuse bilateral pulmonary infiltrates and currently the patient is intubated sedated and paralyzed on a mechanical ventilator. Repeat cultures is pending for now. The patient on low tidal volume ventilation with permissive hypercapnia. 2 metastatic esophageal cancer currently on FOLFOX systemic chemotherapy might the patient has local recurrence in his stomach and metastases to his lumbar spine right 3 recurrent aspiration with poor tolerability of oral intake and the patient is having frequent emesis 4 patient remains nothing by mouth, unable to meet caloric requirements secondary to above 5 leukocytosis, severe in the white cell count is up to 52 6 oropharyngeal candidiasis, currently on IV Diflucan 7 severe respiratory acidosis improved with some further adjustments in the tidal volume and the respiratory rate. Currently the patient is undergoing permissive hypercapnia. 8 acute hyperkalemia secondary to severe metabolic acidosis, potassium level is being followed up 9 generalized anxiety disorder 10 shock with profound hypotension and patient is currently pressor dependent. Consider septic shock secondary to above-mentioned comorbidities. Plan Condition is extremely critical. Intubated, sedated, paralyzed, undergoing permissive hypercapnia with low tidal volume ventilation, we'll monitor the acid-base status. We'll monitored acidosis. We'll monitor the potassium level and bicarb was given. Continue current antibiotic coverage. Obtain daniel cultures including sputum and blood. Continue Merrem vancomycin and Diflucan for now. Continue TPN for now. The patient was given IV fluids and currently normal saline is running at the rate of 75 mL hour. Patient is currently on pressors which are going to try to gradually wean. He is currently running at high-dose pressors. He is on IV Solu Medrol which will be continued. He is on broad-spectrum antibiotics. He is on TPN. Condition is critical. High mortality risk based above-mentioned morbidities. We'll continue to follow. And based on echocardiogram was ordered for today to assess his LV function. This evaluation was on a more than 30 minutes. Case was discussed with the family and the at the bedside. She is aware of his poor prognosis. Time with Patient: Greater than 30
[2018-12-30] MEDS: NOREPINEPHRINE 32 MG in SODIUM CHLORIDE 0.9% 218 ML IV SCH (08:30)
[2018-12-30] MEDS: PANTOPRAZOLE 40 MG/10 ML VIAL IVP SCH ×2 (09:30→21:25)
[2018-12-30] MEDS: CHLORHEXIDINE GLUCONATE 15 ML CUP MUCOUS MEM SCH ×2 (09:31→21:28)
[2018-12-30] MEDS: SENNOSIDES-DOCUSATE SODIUM 1 EACH TAB PO SCH ×2 (09:36→21:23)
[2018-12-30] MEDS: FLUCONAZOLE IN NACL,ISO-OSM 100 MG in SALINE 1 50ML.BAG IVPB SCH (09:49)
[2018-12-30 11:54] LABS: Glucose,Whole Blood 199 mg/dL (75-99)
--- NOTE | 2018-12-30 14:16 | P.PN ---
Subjective Progress Note Date: 12/30/18 Principal diagnosis: Difficulty in breathing, nausea and vomiting. Metastatic esophageal adenocarcinoma. Respiratory failure In follow-up today patient is sedated and mechanically ventilated. His is at the bedside. Patient is not demonstrating any signs or symptoms of pain or discomfort. Objective - Vital Signs Vital signs: Vital Signs Temp 35.8 F L 12/30/18 11:30 Pulse 110 H 12/30/18 13:30 Resp 38 H 12/30/18 13:30 BP 90/63 12/30/18 09:45 Pulse Ox 97 12/30/18 13:30 Intake & Output 12/29/18 12/30/18 12/30/18 18:59 06:59 18:59 Intake Total 1460 4406.263 943.153 Output Total 425 832 437 Balance 1035 3574.263 506.153 Weight 79.3 kg 77.1 kg 77.1 kg Intake: IV 1350 3755 855 .9 900 2825 450 Cefepime 2 gm In Sodium 200 Chloride 0.9% 100 ml @ 200 mls/hr IVPB Q8HR [facility] Rx#:[id number] Fluconazole in NaCl,Iso- 50 Osm 100 mg In Saline 1 50ml.bag @ 50 mls/hr IVPB DAILY [facility] Rx#:[id number] Meropenem 1 gm In Sodium 100 100 Chloride 0.9% 100 ml @ 200 mls/hr IVPB Q8HR [facility] Rx#:[id number] Mvi, Adult No.4 with Vit 330 180 K 10 ml Trace (Conc-1Ml/ Dose) 1 ml Sodium Acetate 35 meq Potassium Chloride 10 meq Potassium Phosphate 15 mmol Calcium Gluconate 1 gm In Amino Acid 5%-D15w 1,000 ml @ 30 mls/hr IV .Q24H [facility] Rx#:[id number] Sodium Chloride 0.9% 1, 75 000 ml @ 75 mls/hr IV . [id number] [facility] Rx#:[id number] Vanco 250 500 Intake, IV Titration 110 621.263 28.153 Amount Cisatracurium 200 mg In 55.034 Sodium Chloride 0.9% 180 ml @ 1 MCG/KG/MIN 4.758 mls/hr IV .Q24H [facility] Rx#: [id number] Fluconazole in NaCl,Iso- 50 Osm 100 mg In Saline 1 50ml.bag @ 50 mls/hr IVPB DAILY [facility] Rx#:[id number] Mvi, Adult No.4 with Vit 30 K 10 ml Trace (Conc-1Ml/ Dose) 1 ml Sodium Acetate 35 meq Potassium Chloride 10 meq Potassium Phosphate 15 mmol Calcium Gluconate 1 gm In Amino Acid 5%-D15w 1,000 ml @ 30 mls/hr IV .Q24H [facility] Rx#:[id number] Norepinephrine 32 mg In 28.153 Sodium Chloride 0.9% 218 ml @ 0.05 MCG/KG/MIN 1. 807 mls/hr IV .Q24H [facility] Rx#:[id number] Norepinephrine 4 mg In 336.229 Sodium Chloride 0.9% 250 ml @ 0.05 MCG/KG/MIN 15. 107 mls/hr IV .[id number] [facility] Rx#:[id number] Propofol 1,000 mg In 200 Empty Bag 1 bag @ Titrate IV .Q0M [facility] Rx#: [id number] Sodium Acetate 35 meq 60 Potassium Chloride 10 meq Potassium Phosphate 15 mmol Calcium Gluconate 1 gm In Amino Acid 5%-D15w 1,000 ml @ 85 mls/hr IV . BY DURATION [facility] Rx#: [id number] Oral 60 Other 30 Output: Urine 425 832 437 Other: Voiding Method Indwelling Catheter Indwelling Catheter Indwelling Catheter # Voids 1 ABP, PAP, CO, CI - Last Documented Arterial Blood Pressure 95/58 - Exam Well-developed, thin male laying in bed, he is sedated, no significant edema in the lower extremities is noted, S1 and S2, peripheral pulses are palpable, weak. - Labs CBC & Chem 7: 12/30/18 05:20 12/30/18 09:03 Labs: Abnormal Lab Results - Last 24 Hours (Table) 12/29/18 12/29/18 12/29/18 Range/Units 17:54 17:58 23:55 WBC (3.8-10.6) k/uL RBC (4.30-5.90) m/uL Hgb (13.0-17.5) gm/dL MCV (80.0-100.0) fL MCHC (31.0-37.0) g/dL RDW (11.5-15.5) % ABG pH (7.35-7.45) ABG pCO2 26 L (35-45) mmHg ABG pO2 133 H (83-108) mmHg ABG HCO3 15 L (21-25) mmol/L ABG Total CO2 15 L (19-24) mmol/L ABG O2 Saturation 98.1 H (94-97) % Potassium (3.5-5.1) mmol/L Chloride (98-107) mmol/L Carbon Dioxide (22-30) mmol/L BUN (9-20) mg/dL Glucose (74-99) mg/dL POC Glucose (mg/dL) 179 H 172 H (75-99) mg/dL Calcium (8.4-10.2) mg/dL Phosphorus (2.5-4.5) mg/dL Magnesium (1.6-2.3) mg/dL Triglycerides (<150) mg/dL 12/30/18 12/30/18 12/30/18 Range/Units 05:11 05:20 05:20 WBC 52.7 H* (3.8-10.6) k/uL RBC 3.91 L (4.30-5.90) m/uL Hgb 11.2 L (13.0-17.5) gm/dL MCV 101.7 H D (80.0-100.0) fL MCHC 28.2 L (31.0-37.0) g/dL RDW 17.9 H (11.5-15.5) % ABG pH <7.00 L* (7.35-7.45) ABG pCO2 >120 H* (35-45) mmHg ABG pO2 229 H (83-108) mmHg ABG HCO3 (21-25) mmol/L ABG Total CO2 (19-24) mmol/L ABG O2 Saturation 97.8 H (94-97) % Potassium 6.2 H* (3.5-5.1) mmol/L Chloride 110 H (98-107) mmol/L Carbon Dioxide 33 H (22-30) mmol/L BUN 24 H (9-20) mg/dL Glucose 191 H (74-99) mg/dL POC Glucose (mg/dL) (75-99) mg/dL Calcium 8.3 L (8.4-10.2) mg/dL Phosphorus 6.5 H (2.5-4.5) mg/dL Magnesium 2.7 H (1.6-2.3) mg/dL Triglycerides (<150) mg/dL 12/30/18 12/30/18 12/30/18 Range/Units 05:20 05:42 06:05 WBC (3.8-10.6) k/uL RBC (4.30-5.90) m/uL Hgb (13.0-17.5) gm/dL MCV (80.0-100.0) fL MCHC (31.0-37.0) g/dL RDW (11.5-15.5) % ABG pH <7.00 L* (7.35-7.45) ABG pCO2 >120 H* (35-45) mmHg ABG pO2 139 H (83-108) mmHg ABG HCO3 (21-25) mmol/L ABG Total CO2 (19-24) mmol/L ABG O2 Saturation 97.2 H (94-97) % Potassium (3.5-5.1) mmol/L Chloride (98-107) mmol/L Carbon Dioxide (22-30) mmol/L BUN (9-20) mg/dL Glucose (74-99) mg/dL POC Glucose (mg/dL) 170 H (75-99) mg/dL Calcium (8.4-10.2) mg/dL Phosphorus (2.5-4.5) mg/dL Magnesium (1.6-2.3) mg/dL Triglycerides 278 H (<150) mg/dL 12/30/18 12/30/18 12/30/18 Range/Units 06:55 09:03 11:52 WBC (3.8-10.6) k/uL RBC (4.30-5.90) m/uL Hgb (13.0-17.5) gm/dL MCV (80.0-100.0) fL MCHC (31.0-37.0) g/dL RDW (11.5-15.5) % ABG pH 7.12 L* (7.35-7.45) ABG pCO2 101 H* (35-45) mmHg ABG pO2 122 H (83-108) mmHg ABG HCO3 33 H (21-25) mmol/L ABG Total CO2 36 H (19-24) mmol/L ABG O2 Saturation 97.3 H (94-97) % Potassium 5.8 H (3.5-5.1) mmol/L Chloride (98-107) mmol/L Carbon Dioxide (22-30) mmol/L BUN (9-20) mg/dL Glucose (74-99) mg/dL POC Glucose (mg/dL) 199 H (75-99) mg/dL Calcium (8.4-10.2) mg/dL Phosphorus (2.5-4.5) mg/dL Magnesium (1.6-2.3) mg/dL Triglycerides (<150) mg/dL Microbiology - Last 24 Hours (Table) 12/24/18 11:30 Blood Culture - Final Blood No Growth after 144 hours 12/24/18 09:40 Blood Culture - Final Blood No Growth after 144 hours 12/29/18 23:54 Gram Stain - Preliminary Sputum Sputum Culture - Preliminary Assessment and Plan (1) Acute respiratory failure with hypoxia Narrative/Plan: Patient is now mechanically ventilated. Defer management to the Critical Care team. Differential diagnosis includes aspiration pneumonia versus chemotherapy induced pneumonitis versus lymphangitic spread of malignancy. Patient is being treated for aspiration pneumonia with antibiotics, Infectious Disease is following. Patient is on steroids for possible pneumonitis. Patient's chest x-ray today is reported as stable. On examination though, patient status appears unchanged. Current Visit: Yes Status: Acute Priority: High Code(s): J96.01 - ACUTE RESPIRATORY FAILURE WITH HYPOXIA SNOMED Code(s): 54479249 (2) Metastasis from esophageal cancer Narrative/Plan: Yesterday's discussion: It was discussed with patient and concerns about slow response to therapies for treatment of aspiration pneumonia or pneumonitis, and the concern for a lymphangitic carcinomatosis type spread of disease in the lungs. Patient would require bronchoscopy and biopsy to confirm the latter. Patient is in no condition for procedure at this time. While it is reasonable to continue treatment for both at this time it was recommended that they discuss CODE STATUS and medical interventions that they would want should patient require mechanical ventilation. Reviewed the lack of response of lymphangitic carcinomatosis to treatments as they are unable to treat malignancy fast enough to provide a person with any meaningful relief of symptoms or quality of life. This discussion was reinforced today. Patient's is requesting 48 hours of critical care treatment and observation with further decisions to be made at that time. Agree with patient's . Current Visit: Yes Status: Acute Priority: High Code(s): C79.9 - SECONDARY MALIGNANT NEOPLASM OF UNSPECIFIED SITE; C15.9 - MALIGNANT NEOPLASM OF ESOPHAGUS, UNSPECIFIED SNOMED Code(s): 775045323
[2018-12-30 17:04] LABS: ABG Base Excess 1.9 mmol/L; ABG HCO3 31 mmol/L (21-25); ABG PO2 126 mmHg (83-108); ABG TCO2 34 mmol/L (19-24); Allen Test Performed? Yes
[2018-12-30 17:10] LABS: ABG PCO2 93 mmHg (35-45); ABG PH 7.13 (7.35-7.45)
[2018-12-30 17:24] LABS: Glucose,Whole Blood 184 mg/dL (75-99)
--- NOTE | 2018-12-30 17:24 | P.PN ---
Subjective Progress Note Date: 12/30/18 This is a 48-year-old gentleman with history of esophageal cancer, completed radiation and chemotherapy, history of gastric pull-through, recent biopsy reporting adenocarcinoma with chemotherapy resumed. T-max on admission 100.3, WBC 14.6, neutrophils normal, hemoglobin ,platelets, electrolytes essentially normal.Currently T-max 100.2, WBC improving, down to 12.4.. Maintained on IV fluid hydration of D5.45 MLS per hour, cefepime, vancomycin. Speech consulted to evaluate for silent aspiration(prior history of PEG tube which has been discontinued). Chest x-ray reported new multifocal airspace disease possible multifocal pneumonia versus pulmonary edema. F/U chest x-ray this morning with no significant change. On admission patient had been satting high 90s on room air. During the afternoon patient sats decreased to 93-94%. Last night, patient desatted to 70s to 80s %, A teamed called, received a dose of Lasix 40 IV push and placed on BiPAP. BiPAP weaned off currently on 15 L high flow nasal cannula this morning, maintaining O2 sats of 93%. No further nausea vomiting or diarrhea. Tolerating clear liquid diet. 12/26/2018 Tested negative for influenza, CT negative for PE, received a couple doses of Lasix for potential pulmonary edema, Swallow evaluation per speech therapy with no aspiration observed, universal aspiration precautions recommended..During the night, patient desatted, did not respond to BiPAP, transferred to ICU and placed on Airvo. Maintaining O2 sats of low 90s on 80% airvo. Maintained on IV antibiotics of vancomycin, Maxipime as per infectious disease. T-max 100.4,WBC WNL. Preliminary blood cultures negative at 24 hours .Continues on nebulized bronchodilators. Feels better this morning. 12/27/2018: She remains on high flow nasal cannula oxygen. Pulse ox is 92%. He remains on IV vancomycin plus Maxipime for antibiotic coverage. Solu-Medrol was started yesterday and seems to help. He remains nothing by mouth for suspected chronic aspiration. His is at bedside. Chest x-ray today shows worsening interstitial airspace disease. Clinically he feels better. Staff report he is doing better. 12/28/2018: Patient's chest x-ray shortness of breath continue worsen. He is unable to move significantly not descending. He remains on Airvo. His remains at bedside. I discussed this case with Dr. Wade, he is considering bronchoscopy, but fears that he would end up being intubated and unable to ween.Exact cause of his symptoms are unknown without multifactorial due to aspiration pneumonia, chemical pneumonitis due to chemotherapy, and other factors. 12/29/2018 Maintained on vancomycin and cefepime as per ID. Remains airvo de pendent, maintaining O2 sats of 95% on 60%. chest x-ray reporting stable bilateral pneumonia, ARDS, or pulmonary edema; diffuse increase in opacification to the right lung. Recurrent emesis , aspiration risks changed to NPO, TPN ordered. Blood sugars controlled. Oral thrush, Diflucan initiated. T-max 99.9, WBC down to 15.1. 12/30/2018 respiratory status continued to deteriorate yesterday and patient required intubation yesterday afternoon. Chest x-ray reporting slight improvement in diffuse pulmonary edema, persistent interstitial opacity's bilaterally right more than left, bibasilar atelectasis. ABGs reflected severe respiratory acidosis this morning. FiO2 has been weaned down to 70%, PEEP has been weaned down to 14. Mild sinus tachycardia. Currently on pressor support of Levophed 40 mcgs, and on chemical paralysis with Nimbex. Right pupil fixed and dilated, unstable at this time for transfer to CT. potassium elevated at 6.2 received sodium bicarb D50, insulin, down to 5.8. Afebrile, White count up to 52, on Merrem ,Vancomycin and Diflucan. Repeat cultures sent. Maintained on TPN. Continues on nebulized bronchodilators, IV steroids. Objective - Vital Signs Vital signs: Vital Signs Temp 35.1 F L 12/30/18 09:45 Pulse 105 H 12/30/18 10:55 Resp 38 H 12/30/18 10:30 BP 90/63 12/30/18 09:45 Pulse Ox 98 12/30/18 10:30 Intake & Output 12/29/18 12/30/18 12/30/18 18:59 06:59 18:59 Intake Total 1460 4406.263 658.153 Output Total 425 832 202 Balance 1035 3574.263 456.153 Weight 79.3 kg 77.1 kg Intake: IV 1350 3755 570 .9 900 2825 300 Cefepime 2 gm In Sodium 200 Chloride 0.9% 100 ml @ 200 mls/hr IVPB Q8HR [facility] Rx#:[id number] Fluconazole in NaCl,Iso- 50 Osm 100 mg In Saline 1 50ml.bag @ 50 mls/hr IVPB DAILY [facility] Rx#:[id number] Meropenem 1 gm In Sodium 100 100 Chloride 0.9% 100 ml @ 200 mls/hr IVPB Q8HR [facility] Rx#:[id number] Mvi, Adult No.4 with Vit 330 120 K 10 ml Trace (Conc-1Ml/ Dose) 1 ml Sodium Acetate 35 meq Potassium Chloride 10 meq Potassium Phosphate 15 mmol Calcium Gluconate 1 gm In Amino Acid 5%-D15w 1,000 ml @ 30 mls/hr IV .Q24H [facility] Rx#:[id number] Vanco 250 500 Intake, IV Titration 110 621.263 28.153 Amount Cisatracurium 200 mg In 55.034 Sodium Chloride 0.9% 180 ml @ 1 MCG/KG/MIN 4.758 mls/hr IV .Q24H [facility] Rx#: [id number] Fluconazole in NaCl,Iso- 50 Osm 100 mg In Saline 1 50ml.bag @ 50 mls/hr IVPB DAILY [facility] Rx#:[id number] Mvi, Adult No.4 with Vit 30 K 10 ml Trace (Conc-1Ml/ Dose) 1 ml Sodium Acetate 35 meq Potassium Chloride 10 meq Potassium Phosphate 15 mmol Calcium Gluconate 1 gm In Amino Acid 5%-D15w 1,000 ml @ 30 mls/hr IV .Q24H [facility] Rx#:[id number] Norepinephrine 32 mg In 28.153 Sodium Chloride 0.9% 218 ml @ 0.05 MCG/KG/MIN 1. 807 mls/hr IV .Q24H [facility] Rx#:[id number] Norepinephrine 4 mg In 336.229 Sodium Chloride 0.9% 250 ml @ 0.05 MCG/KG/MIN 15. 107 mls/hr IV .[id number] [facility] Rx#:[id number] Propofol 1,000 mg In 200 Empty Bag 1 bag @ Titrate IV .Q0M [facility] Rx#: [id number] Sodium Acetate 35 meq 60 Potassium Chloride 10 meq Potassium Phosphate 15 mmol Calcium Gluconate 1 gm In Amino Acid 5%-D15w 1,000 ml @ 85 mls/hr IV . BY DURATION [facility] Rx#: [id number] Oral 60 Other 30 Output: Urine 425 832 202 Other: Voiding Method Indwelling Catheter Indwelling Catheter # Voids 1 ABP, PAP, CO, CI - Last Documented Arterial Blood Pressure 105/65 - Exam VITAL SIGNS: As above GENERAL: Lying in bed, calm, intubated, sedated and chemically paralyzed HEENT: Conjunctivae normal. Right pupil > left, responds to light. OG present, oral mucosa dry NECK: Supple, No JVD,No LNs CARDIOVASCULAR: S1, S2 regular. Mild tachycardia, No murmur, no rub, no gallop RESPIRATION: Breath sounds diminished with bibasilar crackles, greater in the left ABDOMEN: Soft, nondistended, nontender. No guarding. no masses palpable. Bowel sounds heard. LEGS: No edema. no swelling, no cyanosis, no clubbing. NERVOUS SYSTEM: Unable to evaluate at this time, as patient intubated sedated and paralyzed Skin: Warm, dry, no lesions, no rash - Labs CBC & Chem 7: 12/30/18 05:20 12/30/18 15:46 Labs: Abnormal Lab Results - Last 24 Hours (Table) 12/29/18 12/29/18 12/29/18 Range/Units 11:45 12:00 17:54 WBC (3.8-10.6) k/uL RBC (4.30-5.90) m/uL Hgb (13.0-17.5) gm/dL MCV (80.0-100.0) fL MCHC (31.0-37.0) g/dL RDW (11.5-15.5) % ABG pH (7.35-7.45) ABG pCO2 (35-45) mmHg ABG pO2 (83-108) mmHg ABG HCO3 (21-25) mmol/L ABG Total CO2 (19-24) mmol/L ABG O2 Saturation (94-97) % Potassium (3.5-5.1) mmol/L Chloride 109 H (98-107) mmol/L Carbon Dioxide (22-30) mmol/L BUN 22 H (9-20) mg/dL Creatinine 0.47 L (0.66-1.25) mg/dL Glucose 117 H (74-99) mg/dL POC Glucose (mg/dL) 108 H 179 H (75-99) mg/dL Calcium (8.4-10.2) mg/dL Phosphorus (2.5-4.5) mg/dL Magnesium 2.6 H (1.6-2.3) mg/dL Alkaline Phosphatase 145 H (38-126) U/L Total Protein 6.0 L (6.3-8.2) g/dL Albumin 3.2 L (3.5-5.0) g/dL Triglycerides 160 H (<150) mg/dL 12/29/18 12/29/18 12/30/18 Range/Units 17:58 23:55 05:11 WBC (3.8-10.6) k/uL RBC (4.30-5.90) m/uL Hgb (13.0-17.5) gm/dL MCV (80.0-100.0) fL MCHC (31.0-37.0) g/dL RDW (11.5-15.5) % ABG pH <7.00 L* (7.35-7.45) ABG pCO2 26 L >120 H* (35-45) mmHg ABG pO2 133 H 229 H (83-108) mmHg ABG HCO3 15 L (21-25) mmol/L ABG Total CO2 15 L (19-24) mmol/L ABG O2 Saturation 98.1 H 97.8 H (94-97) % Potassium (3.5-5.1) mmol/L Chloride (98-107) mmol/L Carbon Dioxide (22-30) mmol/L BUN (9-20) mg/dL Creatinine (0.66-1.25) mg/dL Glucose (74-99) mg/dL POC Glucose (mg/dL) 172 H (75-99) mg/dL Calcium (8.4-10.2) mg/dL Phosphorus (2.5-4.5) mg/dL Magnesium (1.6-2.3) mg/dL Alkaline Phosphatase (38-126) U/L Total Protein (6.3-8.2) g/dL Albumin (3.5-5.0) g/dL Triglycerides (<150) mg/dL 12/30/18 12/30/18 12/30/18 Range/Units 05:20 05:20 05:20 WBC 52.7 H* (3.8-10.6) k/uL RBC 3.91 L (4.30-5.90) m/uL Hgb 11.2 L (13.0-17.5) gm/dL MCV 101.7 H D (80.0-100.0) fL MCHC 28.2 L (31.0-37.0) g/dL RDW 17.9 H (11.5-15.5) % ABG pH (7.35-7.45) ABG pCO2 (35-45) mmHg ABG pO2 (83-108) mmHg ABG HCO3 (21-25) mmol/L ABG Total CO2 (19-24) mmol/L ABG O2 Saturation (94-97) % Potassium 6.2 H* (3.5-5.1) mmol/L Chloride 110 H (98-107) mmol/L Carbon Dioxide 33 H (22-30) mmol/L BUN 24 H (9-20) mg/dL Creatinine (0.66-1.25) mg/dL Glucose 191 H (74-99) mg/dL POC Glucose (mg/dL) (75-99) mg/dL Calcium 8.3 L (8.4-10.2) mg/dL Phosphorus 6.5 H (2.5-4.5) mg/dL Magnesium 2.7 H (1.6-2.3) mg/dL Alkaline Phosphatase (38-126) U/L Total Protein (6.3-8.2) g/dL Albumin (3.5-5.0) g/dL Triglycerides 278 H (<150) mg/dL 12/30/18 12/30/18 12/30/18 Range/Units 05:42 06:05 06:55 WBC (3.8-10.6) k/uL RBC (4.30-5.90) m/uL Hgb (13.0-17.5) gm/dL MCV (80.0-100.0) fL MCHC (31.0-37.0) g/dL RDW (11.5-15.5) % ABG pH <7.00 L* 7.12 L* (7.35-7.45) ABG pCO2 >120 H* 101 H* (35-45) mmHg ABG pO2 139 H 122 H (83-108) mmHg ABG HCO3 33 H (21-25) mmol/L ABG Total CO2 36 H (19-24) mmol/L ABG O2 Saturation 97.2 H 97.3 H (94-97) % Potassium (3.5-5.1) mmol/L Chloride (98-107) mmol/L Carbon Dioxide (22-30) mmol/L BUN (9-20) mg/dL Creatinine (0.66-1.25) mg/dL Glucose (74-99) mg/dL POC Glucose (mg/dL) 170 H (75-99) mg/dL Calcium (8.4-10.2) mg/dL Phosphorus (2.5-4.5) mg/dL Magnesium (1.6-2.3) mg/dL Alkaline Phosphatase (38-126) U/L Total Protein (6.3-8.2) g/dL Albumin (3.5-5.0) g/dL Triglycerides (<150) mg/dL 12/30/18 Range/Units 09:03 WBC (3.8-10.6) k/uL RBC (4.30-5.90) m/uL Hgb (13.0-17.5) gm/dL MCV (80.0-100.0) fL MCHC (31.0-37.0) g/dL RDW (11.5-15.5) % ABG pH (7.35-7.45) ABG pCO2 (35-45) mmHg ABG pO2 (83-108) mmHg ABG HCO3 (21-25) mmol/L ABG Total CO2 (19-24) mmol/L ABG O2 Saturation (94-97) % Potassium 5.8 H (3.5-5.1) mmol/L Chloride (98-107) mmol/L Carbon Dioxide (22-30) mmol/L BUN (9-20) mg/dL Creatinine (0.66-1.25) mg/dL Glucose (74-99) mg/dL POC Glucose (mg/dL) (75-99) mg/dL Calcium (8.4-10.2) mg/dL Phosphorus (2.5-4.5) mg/dL Magnesium (1.6-2.3) mg/dL Alkaline Phosphatase (38-126) U/L Total Protein (6.3-8.2) g/dL Albumin (3.5-5.0) g/dL Triglycerides (<150) mg/dL Microbiology - Last 24 Hours (Table) 12/29/18 23:54 Gram Stain - Preliminary Sputum Sputum Culture - Preliminary 12/24/18 11:30 Blood Culture - Preliminary Blood No Growth after 120 hours 12/24/18 09:40 Blood Culture - Preliminary Blood No Growth after 120 hours Assessment and Plan Assessment: (1) Acute hypoxic respiratory failure, ARDS, ventilator dependent, chemically paralyzed, secondary to aspiration pneumonia,possible chemotherapy induced injury, possible metastatic lymphangitic (2) septic shock with severe leukocytosis, pressor dependent, multi-factorial; related to multiple comorbidities Current Visit: Yes Status: Acute Code(s): J96.01 - ACUTE RESPIRATORY FAILURE WITH HYPOXIA SNOMED Code(s): 94919049 (3) Acute pneumonitis, chemotherapy induced Current Visit: Yes Status: Acute Code(s): J18.9 - PNEUMONIA, UNSPECIFIED ORGANISM SNOMED Code(s): 909912092 (3) Aspiration pneumonia Current Visit: Yes Status: Acute Code(s): J69.0 - PNEUMONITIS DUE TO INHALATION OF FOOD AND VOMIT SNOMED Code(s): 772844666 (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 Recurrent esophageal cancer recent biopsy reporting adenocarcinoma with metastasis to L3 spine and to the stomach, chemotherapy resumed Current Visit: No Status: Acute Code(s): C15.9 - MALIGNANT NEOPLASM OF ESOPHAGUS, UNSPECIFIED SNOMED Code(s): 632800619 (7) Exercise-induced asthma (8) oral candidiasis (9) anxiety (10) hyperkalemia, secondary to metabolic acidosis (11) TPN Plan: Continue current medication regime ,monitoring and symptomatic treatment. Pancultured, maintain IV antibiotics of Merrem, vancomycin and Diflucan as per infectious disease. Continue nebulized bronchodilators, IV steroids, TPN. IV fluid hydration with weaning of pressors in progress.Continues on chemical paralysis with nimbex. Unstable for travel for brain CT/radiology studies. Prognosis is extremely guarded at this time. Currently dealing with a cuff leak/ETT very positional.Strict aspiration precautions . Follow closely with multiple consults . Discussed poor prognosis with at bedside, requesting full support for another 24 hours. The impression and plan of care has been dictated as directed. : I performed a history and examination of this patient, discussed the same with the dictator. I agree with the dictator's note ,documented as a scribe. Any additional findings or plans will be noted. Time taken: 35 minutes
[2018-12-30 19:50] LABS: Glucose,Whole Blood 190 mg/dL (75-99)
--- NOTE | 2018-12-30 20:17 | XR ---
EXAMINATION TYPE: XR chest 1V portable DATE OF EXAM: 12/30/2018 COMPARISON: Today HISTORY: Check tube placement TECHNIQUE: Single frontal view of the chest is obtained. FINDINGS: Endotracheal tube is approximately 1.5 cm from the raul. There is pulmonary edema. There is right central venous catheter with tip in the superior vena cava. There is nasogastric tube in th e tip is probably in the gastric fundus. There are chest leads. There is no pneumothorax. IMPRESSION: Endotracheal tube is low and could be pulled back 2 cm. There is pulmonary edema slightly improved compared to exam this morning at 6:00 AM.
[2018-12-30 20:57] LABS: ABG Base Excess 4.5 mmol/L; ABG HCO3 32 mmol/L (21-25); ABG PCO2 69 mmHg (35-45); ABG PH 7.27 (7.35-7.45); ABG PO2 101 mmHg (83-108); ABG TCO2 34 mmol/L (19-24)
[2018-12-30] MEDS: traZODone HCL 50 MG TAB PO SCH (21:23)
[2018-12-30] MEDS: CISATRACURIUM 200 MG in SODIUM CHLORIDE 0.9% 180 ML IV SCH (21:28)
--- NOTE | 2018-12-30 21:42 | P.PN ---
Subjective Progress Note Date: 12/30/18 48-year-old male who is known history of esophageal cancer status post the gastric pull-through procedure. Has completed his original course of chemotherapy and radiation therapy. Was having increasing difficulties and recent biopsies continue to show evidence of adenocarcinoma. He is receiving further courses of chemotherapy at this time. He however now presents to hospital with fever of 103 with chills and rigors and feeling poorly. He has minimal pulmonary symptoms with some cough without much sputum production and no hemoptysis. He relates since coming to Hospital his fever and chills are starting to improve. 12/25/2018 Does feel quite poorly overall. Status has worsened he is more short of breath feels worse today. Requiring increasing amounts of oxygen. Patient still feels very poorly. 12/26/2018 patient's feeling better today off of BiPAP and on Airvo it's much more comfortable and is less short of breath. The BiPAP positive pressure causing nausea and emesis, now improved. 12/27/2018 patient has bouts of nausea which worsens the SOB. Denies fever ,Airvo is well tolerated. December 28, 2018 patient remains on high flow oxygen, is very tired and is easily agitated. Status is not showing much improvement. Patient's is present. 12/29/2018 patient's status has worsened and is now been intubated he sedated and mechanically ventilated, A-line and central line had been placed. Despite 100% oxygen, PEEP of 15 oxygenation is still marginal. 12/30/2018 patient remains critically ill, intubated sedated and mechanically ventilated on vasopressor therapy. However FiO2 has decreased from last night. Objective - Vital Signs Vital signs: Vital Signs Temp 35.8 F L 12/30/18 11:30 Pulse 104 H 12/30/18 20:14 Resp 19 12/30/18 19:15 BP 90/63 12/30/18 18:30 Pulse Ox 94 L 12/30/18 19:15 Intake & Output 12/30/18 12/30/18 12/31/18 06:59 18:59 06:59 Intake Total 4406.263 2151.790 145 Output Total 832 1007 150 Balance 3574.263 1144.790 -5 Weight 77.1 kg 77.1 kg Intake: IV 3755 1830 145 .9 2825 450 Fluconazole in NaCl,Iso- 50 Osm 100 mg In Saline 1 50ml.bag @ 50 mls/hr IVPB DAILY [facility] Rx#:[id number] Meropenem 1 gm In Sodium 100 100 Chloride 0.9% 100 ml @ 200 mls/hr IVPB Q8HR [facility] Rx#:[id number] Mvi, Adult No.4 with Vit 280 70 K 10 ml Trace (Conc-1Ml/ Dose) 1 ml Sodium Acetate 35 meq Calcium Gluconate 1 gm In Amino Acid 5%- D15w 1,000 ml @ 70 mls/hr IV .BY DURATION [facility] Rx#: [id number] Mvi, Adult No.4 with Vit 330 250 K 10 ml Trace (Conc-1Ml/ Dose) 1 ml Sodium Acetate 35 meq Potassium Chloride 10 meq Potassium Phosphate 15 mmol Calcium Gluconate 1 gm In Amino Acid 5%-D15w 1,000 ml @ 30 mls/hr IV .Q24H [facility] Rx#:[id number] Sodium Chloride 0.9% 1, 450 75 000 ml @ 75 mls/hr IV . [id number] [facility] Rx#:[id number] Vanco 500 250 Intake, IV Titration 621.263 261.790 Amount Cisatracurium 200 mg In 55.034 11.895 Sodium Chloride 0.9% 180 ml @ 1 MCG/KG/MIN 4.758 mls/hr IV .Q24H [facility] Rx#: [id number] Mvi, Adult No.4 with Vit 30 K 10 ml Trace (Conc-1Ml/ Dose) 1 ml Sodium Acetate 35 meq Potassium Chloride 10 meq Potassium Phosphate 15 mmol Calcium Gluconate 1 gm In Amino Acid 5%-D15w 1,000 ml @ 30 mls/hr IV .Q24H [facility] Rx#:[id number] Norepinephrine 32 mg In 103.194 Sodium Chloride 0.9% 218 ml @ 0.05 MCG/KG/MIN 1. 807 mls/hr IV .Q24H [facility] Rx#:[id number] Norepinephrine 4 mg In 336.229 Sodium Chloride 0.9% 250 ml @ 0.05 MCG/KG/MIN 15. 107 mls/hr IV .[id number] [facility] Rx#:[id number] Propofol 1,000 mg In 200 146.701 Empty Bag 1 bag @ Titrate IV .Q0M [facility] Rx#: [id number] Oral 60 Other 30 Output: Urine 832 1007 150 Other: Voiding Method Indwelling Catheter Indwelling Catheter ABP, PAP, CO, CI - Last Documented Arterial Blood Pressure 110/61 - Exam 48-year-old male has now been intubated is sedated and mechanically Ventilated now paralyzed HEENT: Anicteric conjunctiva are pink and moist nasal mucosa grossly intact without significant lesions, there is no thrush. Neck: no lymphadenopathy endotracheal tube Lungs: Symmetrical air entry is noted coarse scattered crackles patient is having some gasping respirations with each breath Heart: Regular rate and rhythm with an audible S1-S2, no S3 no S4. There is no significant murmur click or rub, PMI was nondisplaced. Abdomen: Positive bowel sounds soft and nontender without palpable masses or o rganomegaly. There was no guarding or rebound. Prior PEG tube site is well- healed Extremities: The upper extremities have excellent pulses they are symmetric, no significant petechiae or telangiectasia. No splinter hemorrhages were noted. The lower extremities are free from significant edema. The peripheral pulses were 2+ and symmetric. Evidence of muscular wasting Neuro:sedated, paralyzed - Labs CBC & Chem 7: 12/30/18 05:20 12/30/18 15:46 Labs: Abnormal Lab Results - Last 24 Hours (Table) 12/29/18 12/30/18 12/30/18 Range/Units 23:55 05:11 05:20 WBC (3.8-10.6) k/uL RBC (4.30-5.90) m/uL Hgb (13.0-17.5) gm/dL MCV (80.0-100.0) fL MCHC (31.0-37.0) g/dL RDW (11.5-15.5) % ABG pH <7.00 L* (7.35-7.45) ABG pCO2 >120 H* (35-45) mmHg ABG pO2 229 H (83-108) mmHg ABG HCO3 (21-25) mmol/L ABG Total CO2 (19-24) mmol/L ABG O2 Saturation 97.8 H (94-97) % Potassium 6.2 H* (3.5-5.1) mmol/L Chloride 110 H (98-107) mmol/L Carbon Dioxide 33 H (22-30) mmol/L BUN 24 H (9-20) mg/dL Glucose 191 H (74-99) mg/dL POC Glucose (mg/dL) 172 H (75-99) mg/dL Calcium 8.3 L (8.4-10.2) mg/dL Phosphorus 6.5 H (2.5-4.5) mg/dL Magnesium 2.7 H (1.6-2.3) mg/dL Triglycerides (<150) mg/dL 12/30/18 12/30/18 12/30/18 Range/Units 05:20 05:20 05:42 WBC 52.7 H* (3.8-10.6) k/uL RBC 3.91 L (4.30-5.90) m/uL Hgb 11.2 L (13.0-17.5) gm/dL MCV 101.7 H D (80.0-100.0) fL MCHC 28.2 L (31.0-37.0) g/dL RDW 17.9 H (11.5-15.5) % ABG pH (7.35-7.45) ABG pCO2 (35-45) mmHg ABG pO2 (83-108) mmHg ABG HCO3 (21-25) mmol/L ABG Total CO2 (19-24) mmol/L ABG O2 Saturation (94-97) % Potassium (3.5-5.1) mmol/L Chloride (98-107) mmol/L Carbon Dioxide (22-30) mmol/L BUN (9-20) mg/dL Glucose (74-99) mg/dL POC Glucose (mg/dL) 170 H (75-99) mg/dL Calcium (8.4-10.2) mg/dL Phosphorus (2.5-4.5) mg/dL Magnesium (1.6-2.3) mg/dL Triglycerides 278 H (<150) mg/dL 12/30/18 12/30/18 12/30/18 Range/Units 06:05 06:55 09:03 WBC (3.8-10.6) k/uL RBC (4.30-5.90) m/uL Hgb (13.0-17.5) gm/dL MCV (80.0-100.0) fL MCHC (31.0-37.0) g/dL RDW (11.5-15.5) % ABG pH <7.00 L* 7.12 L* (7.35-7.45) ABG pCO2 >120 H* 101 H* (35-45) mmHg ABG pO2 139 H 122 H (83-108) mmHg ABG HCO3 33 H (21-25) mmol/L ABG Total CO2 36 H (19-24) mmol/L ABG O2 Saturation 97.2 H 97.3 H (94-97) % Potassium 5.8 H (3.5-5.1) mmol/L Chloride (98-107) mmol/L Carbon Dioxide (22-30) mmol/L BUN (9-20) mg/dL Glucose (74-99) mg/dL POC Glucose (mg/dL) (75-99) mg/dL Calcium (8.4-10.2) mg/dL Phosphorus (2.5-4.5) mg/dL Magnesium (1.6-2.3) mg/dL Triglycerides (<150) mg/dL 12/30/18 12/30/18 12/30/18 Range/Units 11:52 15:46 17:02 WBC (3.8-10.6) k/uL RBC (4.30-5.90) m/uL Hgb (13.0-17.5) gm/dL MCV (80.0-100.0) fL MCHC (31.0-37.0) g/dL RDW (11.5-15.5) % ABG pH 7.13 L* (7.35-7.45) ABG pCO2 93 H* (35-45) mmHg ABG pO2 126 H (83-108) mmHg ABG HCO3 31 H (21-25) mmol/L ABG Total CO2 34 H (19-24) mmol/L ABG O2 Saturation (94-97) % Potassium 5.3 H (3.5-5.1) mmol/L Chloride (98-107) mmol/L Carbon Dioxide (22-30) mmol/L BUN (9-20) mg/dL Glucose (74-99) mg/dL POC Glucose (mg/dL) 199 H (75-99) mg/dL Calcium (8.4-10.2) mg/dL Phosphorus (2.5-4.5) mg/dL Magnesium (1.6-2.3) mg/dL Triglycerides (<150) mg/dL 12/30/18 12/30/18 Range/Units 17:09 19:46 WBC (3.8-10.6) k/uL RBC (4.30-5.90) m/uL Hgb (13.0-17.5) gm/dL MCV (80.0-100.0) fL MCHC (31.0-37.0) g/dL RDW (11.5-15.5) % ABG pH (7.35-7.45) ABG pCO2 (35-45) mmHg ABG pO2 (83-108) mmHg ABG HCO3 (21-25) mmol/L ABG Total CO2 (19-24) mmol/L ABG O2 Saturation (94-97) % Potassium (3.5-5.1) mmol/L Chloride (98-107) mmol/L Carbon Dioxide (22-30) mmol/L BUN (9-20) mg/dL Glucose (74-99) mg/dL POC Glucose (mg/dL) 184 H 190 H (75-99) mg/dL Calcium (8.4-10.2) mg/dL Phosphorus (2.5-4.5) mg/dL Magnesium (1.6-2.3) mg/dL Triglycerides (<150) mg/dL Microbiology - Last 24 Hours (Table) 12/24/18 11:30 Blood Culture - Final Blood No Growth after 144 hours 12/24/18 09:40 Blood Culture - Final Blood No Growth after 144 hours 12/29/18 23:54 Gram Stain - Preliminary Sputum Sputum Culture - Preliminary Laboratory Results WBC 52.7 k/uL (3.8-10.6) H* 12/30/18 05:20 RBC 3.91 m/uL (4.30-5.90) L 12/30/18 05:20 Hgb 11.2 gm/dL (13.0-17.5) L 12/30/18 05:20 Hct 39.7 % (39.0-53.0) 12/30/18 05:20 MCV 101.7 fL (80.0-100.0) H D 12/30/18 05:20 MCH 28.7 pg (25.0-35.0) 12/30/18 05:20 MCHC 28.2 g/dL (31.0-37.0) L 12/30/18 05:20 RDW 17.9 % (11.5-15.5) H 12/30/18 05:20 Plt Count 233 k/uL (150-450) 12/30/18 05:20 Neutrophils % 94 % 12/29/18 03:30 Lymphocytes % 2 % 12/29/18 03:30 Monocytes % 2 % 12/29/18 03:30 Eosinophils % 1 % 12/29/18 03:30 Basophils % 0 % 12/29/18 03:30 Neutrophils # 14.2 k/uL (1.3-7.7) H 12/29/18 03:30 Lymphocytes # 0.4 k/uL (1.0-4.8) L 12/29/18 03:30 Monocytes # 0.4 k/uL (0-1.0) 12/29/18 03:30 Eosinophils # 0.1 k/uL (0-0.7) 12/29/18 03:30 Basophils # 0.0 k/uL (0-0.2) 12/29/18 03:30 Hypochromasia Marked 12/30/18 05:20 Poikilocytosis Slight 12/30/18 05:20 Anisocytosis Slight 12/30/18 05:20 Macrocytosis Moderate 12/30/18 05:20 PT 10.7 sec (9.0-12.0) 12/24/18 10:00 INR 1.0 (<1.2) 12/24/18 10:00 APTT 25.3 sec (22.0-30.0) 12/24/18 10:00 Sample Site derek 12/30/18 20:52 ABG pH 7.27 (7.35-7.45) L 12/30/18 20:52 ABG pCO2 69 mmHg (35-45) H 12/30/18 20:52 ABG pO2 101 mmHg (83-108) 12/30/18 20:52 ABG HCO3 32 mmol/L (21-25) H 12/30/18 20:52 ABG Total CO2 34 mmol/L (19-24) H 12/30/18 20:52 ABG O2 Saturation 97.0 % (94-97) 12/30/18 20:52 ABG Base Excess 4.5 mmol/L 12/30/18 20:52 Jose Test n/a 12/30/18 20:52 FiO2 60 % 12/30/18 20:52 Sodium 143 mmol/L (137-145) 12/30/18 05:20 Potassium 5.3 mmol/L (3.5-5.1) H 12/30/18 15:46 Chloride 110 mmol/L (98-107) H 12/30/18 05:20 Carbon Dioxide 33 mmol/L (22-30) H 12/30/18 05:20 Anion Gap 0 mmol/L 12/30/18 05:20 BUN 24 mg/dL (9-20) H 12/30/18 05:20 Creatinine 0.71 mg/dL (0.66-1.25) 12/30/18 05:20 Est GFR (CKD-EPI)AfAm >90 (>60 ml/min/1.73 sqM) 12/30/18 05:20 Est GFR (CKD-EPI)NonAf >90 (>60 ml/min/1.73 sqM) 12/30/18 05:20 Glucose 191 mg/dL (74-99) H 12/30/18 05:20 POC Glucose (mg/dL) 190 mg/dL (75-99) H 12/30/18 19:46 POC Glu Spindle Frame Carver ID Angy Bowden 12/30/18 19:46 Calcium 8.3 mg/dL (8.4-10.2) L 12/30/18 05:20 Ionized Calcium Darron 4.9 mg/dL (4.5-5.3) 12/29/18 11:45 Phosphorus 6.5 mg/dL (2.5-4.5) H 12/30/18 05:20 Magnesium 2.7 mg/dL (1.6-2.3) H 12/30/18 05:20 Total Bilirubin 0.6 mg/dL (0.2-1.3) 12/29/18 11:45 AST 36 U/L (17-59) 12/29/18 11:45 ALT 23 U/L (21-72) 12/29/18 11:45 Alkaline Phosphatase 145 U/L (38-126) H 12/29/18 11:45 NT-Pro-B Natriuret Pep 787 pg/mL 12/25/18 06:37 Total Protein 6.0 g/dL (6.3-8.2) L 12/29/18 11:45 Albumin 3.2 g/dL (3.5-5.0) L 12/29/18 11:45 Triglycerides 278 mg/dL (<150) H 12/30/18 05:20 Urine Color Yellow 12/24/18 11:45 Urine Appearance Clear (Clear) 12/24/18 11:45 Urine pH 7.0 (5.0-8.0) 12/24/18 11:45 Ur Specific Byron 1.008 (1.001-1.035) 12/24/18 11:45 Urine Protein Trace (Negative) H 12/24/18 11:45 Urine Glucose (UA) Negative (Negative) 12/24/18 11:45 Urine Ketones Negative (Negative) 12/24/18 11:45 Urine Blood Negative (Negative) 12/24/18 11:45 Urine Nitrite Negative (Negative) 12/24/18 11:45 Urine Bilirubin Negative (Negative) 12/24/18 11:45 Urine Urobilinogen 2.0 mg/dL (<2.0) 12/24/18 11:45 Ur Leukocyte Esterase Negative (Negative) 12/24/18 11:45 Vancomycin Trough 19.1 ug/mL 12/28/18 03:30 Influenza Type A RNA Not Detected (Not Detectd) 12/24/18 10:15 Influenza Type B (PCR) Not Detected (Not Detectd) 12/24/18 10:15 Microbiology 12/24/18 11:30 Blood Blood Culture - Final No Growth after 144 hours 12/24/18 09:40 Blood Blood Culture - Final No Growth after 144 hours 12/29/18 23:54 Sputum Gram Stain - Preliminary 12/29/18 23:54 Sputum Sputum Culture - Preliminary 12/26/18 03:35 Sputum Gram Stain - Final 12/26/18 03:35 Sputum Sputum Culture - Final Assessment and Plan (1) Esophageal cancer Current Visit: No Status: Acute Code(s): C15.9 - MALIGNANT NEOPLASM OF ESOPHAGUS, UNSPECIFIED SNOMED Code(s): 155117407 (2) Fever Narrative/Plan: 48 -year-old male presents to Hospital feeling poorly with onset of increasing fever malaise and chills. The patient has a known history of esophageal cancer, status post gastric pull-through who has already received his original course of chemotherapy and radiation. But is now receiving further chemotherapy with evidence of ongoing adenocarcinoma. The patient is starting to feel somewhat better since admission and initiation of fluids and antibiotic therapy. The patient has had imaging studies including the computed tomography scan that is revealing some ongoing difficulties with pulmonary infiltrates. Patient is currently receiving cefepime and vancomycin and tolerating that well. We'll need to have further cultures to help further define his antibiotic therapy. He however is not neutropenic at this time. Would like to have the speech pathologist to evaluate the possibility of silent aspiration or reflux that could be causing the current pulmonary changes by computed tomography scan. Leukocytosis appears to be in the bases of the current infectious process. 12/25/2018 patient is had worsening of his status. Respiratory status is worsening. Concern as to ongoing aspiration as etiology for his current re spiratory distress and pulmonary changes. CT angiogram requested. Pulmonary critical care evaluating There are multiple other concerns including lymphangitic spread of his malignancy, acute lung injury, acute lung injury from chemotherapy. We've asked for speech therapy to evaluate if he is having ongoing significant aspiration. Fever has responded antibiotic therapy await cultures to further direct antibiotic therapy. 12/26/2018 patient's respiratory status is now stabilized on high flow oxygen. His nausea is improved no further emesis. Ongoing evaluation as to the etiology of his pulmonary infiltrates, however ongoing aspiration is of great concern. His fevers improved. We'll continue current antibiotic therapy while evaluations continue. December 27, 2018 patient is stable today. He is without other new acute complaints. Does have occasional waves of nausea which became more short of breath other than this he has no new complaints today. He is afebrile. Continues to struggle with his intake. We have asked for protein supplements to try to improve his strength. December 28, 2018 patient is not improving. He's been made fully nothing by mouth again. Respiratory status is not improving despite the high flow oxygen which is now been increased to even a higher level. The patient is dyspneic with any activity. I did discuss with the that it is likely in the next short period of time if he does not improve he will require intubation mechanical ventilation. And with his status likely would not be able to come well enough to ever come off the ventilator. She does understand relates that would give her an opportunity to be able to say goodbye as well as the family. 12/29/2018 the patient continues to decline. He is now been intubated, sedated and mechanically ventilated. Marginal oxygenation only is being achieved with 100% oxygen PEEP of 15. Pulmonary critical care is hopeful that once he is stabilized his oxygenation will start to improve. given the patient is likely having ongoing aspiration event Prognosis is very poor. 12/30/2018 patient's status has further decline. He is now paralyzed and on vasopressor therapy. Family will monitor for a day or so. If there is no improvement we'll likely discontinue current aggressive therapy in face of his progressive malignancy. Continue current antimicrobials with meropenem, fluconazole. Current Visit: Yes Status: Acute Code(s): R50.9 - FEVER, UNSPECIFIED SNOMED Code(s): 531570376 (3) Pulmonary infiltrates Current Visit: Yes Status: Acute Code(s): R91.8 - OTHER NONSPECIFIC ABNORMAL FINDING OF LUNG FIELD SNOMED Code(s): 202840673
[2018-12-30 23:35] LABS: Glucose,Whole Blood 210 mg/dL (75-99)
[2018-12-31] MEDS: PROPOFOL 1,000 MG in EMPTY BAG 1 BAG IV SCH ×6 (02:30→23:42)
[2018-12-31] MEDS: IPRATROPIUM-ALBUTEROL 3 ML NEB INHALATION SCH ×5 (03:10→19:52)
[2018-12-31 04:16] LABS: ABG Base Excess 5.9 mmol/L; ABG HCO3 32 mmol/L (21-25); ABG Oxygen Saturation 97.3 % (94-97); ABG PCO2 64 mmHg (35-45); ABG PH 7.31 (7.35-7.45); ABG PO2 115 mmHg (83-108); ABG TCO2 34 mmol/L (19-24)
[2018-12-31 04:27] LABS: Anisocytosis Slight; Basophils % (A) 0 %; Eosinophils % (A) 0 %; HCT 35.6 % (39.0-53.0); HGB 10.4 gm/dL (13.0-17.5); Hypochromasia Marked; Lymphocytes # (A) 0.4 k/uL (1.0-4.8); Lymphocytes % (A) 2 %; MCH 28.7 pg (25.0-35.0); MCHC 29.1 g/dL (31.0-37.0); MCV 98.4 fL (80.0-100.0); Macrocytosis Slight; Mean Platelet Volume 9.7; Monocytes # (A) 0.7 k/uL (0-1.0); Monocytes % (A) 3 %; Neutrophils # (A) 18.1 k/uL (1.3-7.7); Neutrophils % (A) 94 %; Platelet Count 128 k/uL (150-450); Poikilocytosis Slight; RBC 3.62 m/uL (4.30-5.90); RDW 18.4 % (11.5-15.5); WBC 19.4 k/uL (3.8-10.6)
[2018-12-31 04:36] LABS: African American GFR (CKD) >90 (>60 ml/min/1.73 sqM); Anion Gap -1 mmol/L; Blood Urea Nitrogen 23 mg/dL (9-20); Calcium 8.2 mg/dL (8.4-10.2); Carbon Dioxide 35 mmol/L (22-30); Chloride 110 mmol/L (98-107); Glucose 186 mg/dL (74-99); Magnesium 2.5 mg/dL (1.6-2.3); Phosphorus 2.1 mg/dL (2.5-4.5); Potassium 4.7 mmol/L (3.5-5.1); Sodium 144 mmol/L (137-145)
[2018-12-31 04:42] LABS: Allen Test Performed? no
[2018-12-31] MEDS: ARTIFICIAL TEARS-HYPROMELLOSE DROPS 15 ML BTL BOTH EYES SCH ×6 (04:53→23:26)
[2018-12-31] MEDS ORDERED: VANCOMYCIN TROUGH DUE 1 EACH MISC MISCELLANE ONE (06:00)
[2018-12-31] MEDS ORDERED: Phosphorus Replacement Protoco 1 EACH MISC MISCELLANE PRN (06:00)
[2018-12-31 06:31] LABS: Glucose,Whole Blood 221 mg/dL (75-99)
[2018-12-31] MEDS: NOREPINEPHRINE 32 MG in SODIUM CHLORIDE 0.9% 218 ML IV SCH (06:44)
[2018-12-31] MEDS ORDERED: SODIUM PHOSPHATE 10 MMOL in SODIUM CHLORIDE 0.9% 100 ML IVPB ONE (07:00)
[2018-12-31] MEDS: FORMOTEROL FUMARATE 20 MCG/2 ML NEBU INHALATION SCH ×2 (07:20→19:52)
[2018-12-31] MEDS: BUDESONIDE 1 MG/2 ML NEBU INHALATION SCH ×2 (07:20→19:52)
[2018-12-31] MEDS: INSULIN ASPART (NovoLOG) 100 UNIT/ML VIAL SQ SCH ×4 (08:05→23:48)
[2018-12-31] MEDS: VANCOMYCIN 1,500 MG in SODIUM CHLORIDE 0.9% 250 ML IVPB SCH ×3 (08:22→23:25)
[2018-12-31 08:23] LABS: Glucose,Whole Blood 161 mg/dL (75-99)
[2018-12-31] MEDS: HEPARIN SODIUM,PORCINE 5,000 UNIT/ML 1 ML VIAL SQ SCH ×3 (08:40→23:43)
[2018-12-31] MEDS: methylPREDNISolone SOD SUCCI 125 MG/2 ML VIAL IV SCH ×3 (08:43→23:44)
[2018-12-31] MEDS: PANTOPRAZOLE 40 MG/10 ML VIAL IVP SCH ×2 (08:48→20:24)
[2018-12-31] MEDS: MEROPENEM 1 GM in SODIUM CHLORIDE 0.9% 100 ML IVPB SCH ×3 (08:51→23:28)
[2018-12-31] MEDS: SENNOSIDES-DOCUSATE SODIUM 1 EACH TAB PO SCH ×2 (08:57→20:23)
[2018-12-31] MEDS: CHLORHEXIDINE GLUCONATE 15 ML CUP MUCOUS MEM SCH ×2 (08:58→20:24)
[2018-12-31] MEDS ORDERED: BISACODYL 10 MG SUPP RECTAL STA (09:08)
[2018-12-31] MEDS: FLUCONAZOLE IN NACL,ISO-OSM 100 MG in SALINE 1 50ML.BAG IVPB SCH (10:31)
[2018-12-31 11:47] LABS: Glucose,Whole Blood 165 mg/dL (75-99)
--- NOTE | 2018-12-31 13:08 | P.PN ---
Subjective Progress Note Date: 12/31/18 Principal diagnosis: Difficulty in breathing, nausea and vomiting. Metastatic esophageal adenocarcinoma. Respiratory failure In follow-up today patient remains sedated and mechanically ventilated, no signs or symptoms of distress or pain noted, family is at bedside Objective - Vital Signs Vital signs: Vital Signs Temp 98.8 F 12/31/18 00:00 Pulse 99 12/31/18 11:43 Resp 38 H 12/31/18 10:00 BP 90/63 12/31/18 08:45 Pulse Ox 98 12/31/18 10:00 Intake & Output 12/30/18 12/31/18 12/31/18 18:59 06:59 18:59 Intake Total 2151.790 3422.767 832.497 Output Total 1207 980 495 Balance 899.759 9522.767 337.497 Weight 77.1 kg Intake: IV 1830 1940 780 .9 450 Fluconazole in NaCl,Iso- 50 Osm 100 mg In Saline 1 50ml.bag @ 50 mls/hr IVPB DAILY [facility] Rx#:[id number] Meropenem 1 gm In Sodium 100 100 200 Chloride 0.9% 100 ml @ 200 mls/hr IVPB Q8HR [facility] Rx#:[id number] Mvi, Adult No.4 with Vit 280 840 280 K 10 ml Trace (Conc-1Ml/ Dose) 1 ml Sodium Acetate 35 meq Calcium Gluconate 1 gm In Amino Acid 5%- D15w 1,000 ml @ 70 mls/hr IV .BY DURATION [facility] Rx#: [id number] Mvi, Adult No.4 with Vit 250 K 10 ml Trace (Conc-1Ml/ Dose) 1 ml Sodium Acetate 35 meq Potassium Chloride 10 meq Potassium Phosphate 15 mmol Calcium Gluconate 1 gm In Amino Acid 5%-D15w 1,000 ml @ 30 mls/hr IV .Q24H [facility] Rx#:[id number] Sodium Chloride 0.9% 1, 450 750 300 000 ml @ 75 mls/hr IV . [id number] [facility] Rx#:[id number] Vanco 250 250 Intake, IV Titration 828.922 5825.767 52.497 Amount Cisatracurium 200 mg In 11.895 64.074 52.497 Sodium Chloride 0.9% 180 ml @ 1 MCG/KG/MIN 4.758 mls/hr IV .Q24H [facility] Rx#: [id number] Mvi, Adult No.4 with Vit 1038.5 K 10 ml Trace (Conc-1Ml/ Dose) 1 ml Sodium Acetate 35 meq Calcium Gluconate 1 gm In Amino Acid 5%- D15w 1,000 ml @ 70 mls/hr IV .BY DURATION [facility] Rx#: [id number] Norepinephrine 32 mg In 103.194 109.531 Sodium Chloride 0.9% 218 ml @ 0.05 MCG/KG/MIN 1. 807 mls/hr IV .Q24H [facility] Rx#:[id number] Propofol 1,000 mg In 146.701 270.662 Empty Bag 1 bag @ Titrate IV .Q0M [facility] Rx#: [id number] Oral 60 Output: Gastric Drainage 200 Urine 1007 980 295 Oral Regurgitation 200 Other: Voiding Method Indwelling Catheter Indwelling Catheter Indwelling Catheter ABP, PAP, CO, CI - Last Documented Arterial Blood Pressure 125/74 - Exam Well-developed, thin male laying in bed, he is sedated, no significant edema in the lower extremities is noted, S1 and S2, peripheral pulses are palpable, skin is warm and dry, bowel sounds are hypoactive, mild distention - Labs CBC & Chem 7: 12/31/18 04:00 12/31/18 04:00 Labs: Abnormal Lab Results - Last 24 Hours (Table) 12/30/18 12/30/18 12/30/18 Range/Units 15:46 17:02 17:09 WBC (3.8-10.6) k/uL RBC (4.30-5.90) m/uL Hgb (13.0-17.5) gm/dL Hct (39.0-53.0) % MCHC (31.0-37.0) g/dL RDW (11.5-15.5) % Plt Count (150-450) k/uL Neutrophils # (1.3-7.7) k/uL Lymphocytes # (1.0-4.8) k/uL ABG pH 7.13 L* (7.35-7.45) ABG pCO2 93 H* (35-45) mmHg ABG pO2 126 H (83-108) mmHg ABG HCO3 31 H (21-25) mmol/L ABG Total CO2 34 H (19-24) mmol/L ABG O2 Saturation (94-97) % Potassium 5.3 H (3.5-5.1) mmol/L Chloride (98-107) mmol/L Carbon Dioxide (22-30) mmol/L BUN (9-20) mg/dL Creatinine (0.66-1.25) mg/dL Glucose (74-99) mg/dL POC Glucose (mg/dL) 184 H (75-99) mg/dL Calcium (8.4-10.2) mg/dL Phosphorus (2.5-4.5) mg/dL Magnesium (1.6-2.3) mg/dL 12/30/18 12/30/18 12/30/18 Range/Units 19:46 20:52 23:31 WBC (3.8-10.6) k/uL RBC (4.30-5.90) m/uL Hgb (13.0-17.5) gm/dL Hct (39.0-53.0) % MCHC (31.0-37.0) g/dL RDW (11.5-15.5) % Plt Count (150-450) k/uL Neutrophils # (1.3-7.7) k/uL Lymphocytes # (1.0-4.8) k/uL ABG pH 7.27 L (7.35-7.45) ABG pCO2 69 H (35-45) mmHg ABG pO2 (83-108) mmHg ABG HCO3 32 H (21-25) mmol/L ABG Total CO2 34 H (19-24) mmol/L ABG O2 Saturation (94-97) % Potassium (3.5-5.1) mmol/L Chloride (98-107) mmol/L Carbon Dioxide (22-30) mmol/L BUN (9-20) mg/dL Creatinine (0.66-1.25) mg/dL Glucose (74-99) mg/dL POC Glucose (mg/dL) 190 H 210 H (75-99) mg/dL Calcium (8.4-10.2) mg/dL Phosphorus (2.5-4.5) mg/dL Magnesium (1.6-2.3) mg/dL 12/31/18 12/31/18 12/31/18 Range/Units 04:00 04:00 04:14 WBC 19.4 H (3.8-10.6) k/uL RBC 3.62 L (4.30-5.90) m/uL Hgb 10.4 L (13.0-17.5) gm/dL Hct 35.6 L (39.0-53.0) % MCHC 29.1 L (31.0-37.0) g/dL RDW 18.4 H (11.5-15.5) % Plt Count 128 L (150-450) k/uL Neutrophils # 18.1 H (1.3-7.7) k/uL Lymphocytes # 0.4 L (1.0-4.8) k/uL ABG pH 7.31 L (7.35-7.45) ABG pCO2 64 H (35-45) mmHg ABG pO2 115 H (83-108) mmHg ABG HCO3 32 H (21-25) mmol/L ABG Total CO2 34 H (19-24) mmol/L ABG O2 Saturation 97.3 H (94-97) % Potassium (3.5-5.1) mmol/L Chloride 110 H (98-107) mmol/L Carbon Dioxide 35 H (22-30) mmol/L BUN 23 H (9-20) mg/dL Creatinine 0.60 L (0.66-1.25) mg/dL Glucose 186 H (74-99) mg/dL POC Glucose (mg/dL) (75-99) mg/dL Calcium 8.2 L (8.4-10.2) mg/dL Phosphorus 2.1 L (2.5-4.5) mg/dL Magnesium 2.5 H (1.6-2.3) mg/dL 12/31/18 12/31/18 12/31/18 Range/Units 06:04 08:03 11:45 WBC (3.8-10.6) k/uL RBC (4.30-5.90) m/uL Hgb (13.0-17.5) gm/dL Hct (39.0-53.0) % MCHC (31.0-37.0) g/dL RDW (11.5-15.5) % Plt Count (150-450) k/uL Neutrophils # (1.3-7.7) k/uL Lymphocytes # (1.0-4.8) k/uL ABG pH (7.35-7.45) ABG pCO2 (35-45) mmHg ABG pO2 (83-108) mmHg ABG HCO3 (21-25) mmol/L ABG Total CO2 (19-24) mmol/L ABG O2 Saturation (94-97) % Potassium (3.5-5.1) mmol/L Chloride (98-107) mmol/L Carbon Dioxide (22-30) mmol/L BUN (9-20) mg/dL Creatinine (0.66-1.25) mg/dL Glucose (74-99) mg/dL POC Glucose (mg/dL) 221 H 161 H 165 H (75-99) mg/dL Calcium (8.4-10.2) mg/dL Phosphorus (2.5-4.5) mg/dL Magnesium (1.6-2.3) mg/dL Microbiology - Last 24 Hours (Table) 12/24/18 11:30 Blood Culture - Final Blood No Growth after 144 hours 12/24/18 09:40 Blood Culture - Final Blood No Growth after 144 hours Assessment and Plan (1) Acute respiratory failure with hypoxia Narrative/Plan: Defer management to the Critical Care team. Blood gases significantly improved. Differential diagnosis includes aspiration pneumonia versus chemotherapy induced pneumonitis versus lymphangitic spread of malignancy. Patient is being treated for aspiration pneumonia with antibiotics, Infectious Disease is following. Patient is on steroids for possible pneumonitis. Patient's chest x-ray today is, once again, reported as stable. Pending patient's recovery to see if bronchoscopy with lung biopsy is appropriate to rule out lymphangitic spread of malignancy. 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 Await recommendations of Critical Care team. On 12/30/18 Patient's requested 48 hours of critical care treatment and observation with further decisions to be made. Agree with patient's . Current Visit: Yes Status: Acute Priority: High Code(s): C79.9 - SECONDARY MALIGNANT NEOPLASM OF UNSPECIFIED SITE; C15.9 - MALIGNANT NEOPLASM OF ESOPHAGUS, UNSPECIFIED SNOMED Code(s): 931053971
[2018-12-31 13:54] LABS: Glucose,Whole Blood 189 mg/dL (75-99)
--- NOTE | 2018-12-31 15:29 | P.PN ---
Subjective Progress Note Date: 12/31/18 On 12/31/2018 I'm seeing patient for a follow-up. The patient remains intubated sedated and paralyzed. ET tube was repositioned yesterday and the leak is completed subsided. The patient is intubated by #7.5 ET tube. The patient remains on mechanical ventilation. Was still doing permissive hypercapnia. Earlier this morning the patient wasn't tidal volume of 380 with a rate of 38, November 23 with an FiO2 of 60%. Chest x-ray from today shows no interval change. The patient could use of diffuse breath and pulmonary infiltrates and no evidence of any pneumothorax. ET tube is around a 1 cm above the raul. The patient's blood gases from today showed a pH of 7.31 with a pCO2 of 64 and pO2 of 115. Based on this, I dropped the FiO2 down to 50% and PEEP down to 12. He is still maintaining a saturation above 90%. Hemodynamically is doing better. The patient is currently off pressors. In fact norepinephrine infusion was discontinued this morning at a later stage had to be placed back on 2 mics per minute of norepinephrine infusion to support his blood pressure. He is afebrile. He is on broad-spectrum antibiotic coverage with a combination of Merrem and vancomycin. He is also on IV Diflucan. Cultures of been all negative. The white cell count is 19. Normal electrolytes. Normal and adequate urine output. IV fluids are running at 100 mL an hour which will be cut down to KVO. The patient is in a positive fluid balance for now. And there has been at least several liters fluid positivity over the past 24-48 hours. The patient is on TPN for nutritional support. He remains nothing by mouth for now based on his ability to tolerate oral feeds due to ongoing regurgitation aspiration. He remains on IV Solu-Medrol. Repeat cultures of been all negative. Objective - Vital Signs Vital signs: Vital Signs Temp 98.8 F 12/31/18 00:00 Pulse 106 H 12/31/18 15:11 Resp 38 H 12/31/18 13:30 BP 90/63 12/31/18 13:30 Pulse Ox 93 L 12/31/18 13:30 Intake & Output 12/30/18 12/31/18 12/31/18 18:59 06:59 18:59 Intake Total 2151.790 3422.767 1202.497 Output Total 1207 980 815 Balance 888.649 3867.767 387.497 Weight 77.1 kg Intake: IV 1830 1940 1050 .9 450 Fluconazole in NaCl,Iso- 50 Osm 100 mg In Saline 1 50ml.bag @ 50 mls/hr IVPB DAILY [facility] Rx#:[id number] Meropenem 1 gm In Sodium 100 100 200 Chloride 0.9% 100 ml @ 200 mls/hr IVPB Q8HR [facility] Rx#:[id number] Mvi, Adult No.4 with Vit 280 840 490 K 10 ml Trace (Conc-1Ml/ Dose) 1 ml Sodium Acetate 35 meq Calcium Gluconate 1 gm In Amino Acid 5%- D15w 1,000 ml @ 70 mls/hr IV .BY DURATION [facility] Rx#: [id number] Mvi, Adult No.4 with Vit 250 K 10 ml Trace (Conc-1Ml/ Dose) 1 ml Sodium Acetate 35 meq Potassium Chloride 10 meq Potassium Phosphate 15 mmol Calcium Gluconate 1 gm In Amino Acid 5%-D15w 1,000 ml @ 30 mls/hr IV .Q24H [facility] Rx#:[id number] Sodium Chloride 0.9% 1, 450 750 360 000 ml @ 20 mls/hr IV . Q24H [facility] Rx#:[id number] Vanco 250 250 Intake, IV Titration 373.549 2090.767 152.497 Amount Cisatracurium 200 mg In 11.895 64.074 52.497 Sodium Chloride 0.9% 180 ml @ 1 MCG/KG/MIN 4.758 mls/hr IV .Q24H [facility] Rx#: [id number] Mvi, Adult No.4 with Vit 1038.5 K 10 ml Trace (Conc-1Ml/ Dose) 1 ml Sodium Acetate 35 meq Calcium Gluconate 1 gm In Amino Acid 5%- D15w 1,000 ml @ 70 mls/hr IV .BY DURATION [facility] Rx#: [id number] Norepinephrine 32 mg In 103.194 109.531 Sodium Chloride 0.9% 218 ml @ 0.05 MCG/KG/MIN 1. 807 mls/hr IV .Q24H [facility] Rx#:[id number] Propofol 1,000 mg In 146.701 270.662 100 Empty Bag 1 bag @ Titrate IV .Q0M [facility] Rx#: [id number] Oral 60 Output: Gastric Drainage 200 Urine 1007 980 615 Oral Regurgitation 200 Other: Voiding Method Indwelling Catheter Indwelling Catheter Indwelling Catheter ABP, PAP, CO, CI - Last Documented Arterial Blood Pressure 84/54 - Exam General: Intubated, sedated, paralyzed, calm and comfortable and symptoms with the mechanical ventilator. Orogastric and orotracheal tube are both in place. The patient also has a left IJ triple-lumen catheter and a Mediport over the anterior chest area. No evidence of any leaks around the oral tracheal tube at this point in time. Head: Normocytic, Atraumatic Neck: Supple, Neck was supple and without jugular venous distension, thyromegaly, or carotid bruits. Carotids were easily palpable bilaterally. There was no adenopathy., There is oropharyngeal candidiasis Mouth: No Lesions, No Thrush, the mucous membranes are extremely dry Eyes: Non-sclerotic No Palpable cervical, supraclavicular, axillary adenopathy Heart: Cardiac exam revealed the PMI to be normally situated and sized. The rhythm was regular and no extrasystoles were noted during several minutes of auscultation. The first and second heart sounds were normal and physiologic splitting of the second heart sound was noted. There were no murmurs, rubs, clicks, or gallops. Lungs: The patient is crackles in the mid and lower lung martínez bilaterally left base more than right. Vessels are equal and symmetrical otherwise. Abdomen: Soft, Non-Distended, Non-Tended, BSx4 Extremities: There is development of edema in the upper and lower extremity is bilaterally, there is some limited edema, pulses are equal and symmetrical in all 4 extremities without any cyanosis or clubbing. Neurological: An adequate neurologic exam cannot be done as the patient is currently sedated intubated paralyzed Psych: Unable to perform due to the above-mentioned Examination of the skin revealed no evidence of significant rashes, suspicious appearing nevi or other concerning lesions. - Labs CBC & Chem 7: 12/31/18 04:00 12/31/18 04:00 Labs: Abnormal Lab Results - Last 24 Hours (Table) 12/30/18 12/30/18 12/30/18 Range/Units 15:46 17:02 17:09 WBC (3.8-10.6) k/uL RBC (4.30-5.90) m/uL Hgb (13.0-17.5) gm/dL Hct (39.0-53.0) % MCHC (31.0-37.0) g/dL RDW (11.5-15.5) % Plt Count (150-450) k/uL Neutrophils # (1.3-7.7) k/uL Lymphocytes # (1.0-4.8) k/uL ABG pH 7.13 L* (7.35-7.45) ABG pCO2 93 H* (35-45) mmHg ABG pO2 126 H (83-108) mmHg ABG HCO3 31 H (21-25) mmol/L ABG Total CO2 34 H (19-24) mmol/L ABG O2 Saturation (94-97) % Potassium 5.3 H (3.5-5.1) mmol/L Chloride (98-107) mmol/L Carbon Dioxide (22-30) mmol/L BUN (9-20) mg/dL Creatinine (0.66-1.25) mg/dL Glucose (74-99) mg/dL POC Glucose (mg/dL) 184 H (75-99) mg/dL Calcium (8.4-10.2) mg/dL Phosphorus (2.5-4.5) mg/dL Magnesium (1.6-2.3) mg/dL 12/30/18 12/30/18 12/30/18 Range/Units 19:46 20:52 23:31 WBC (3.8-10.6) k/uL RBC (4.30-5.90) m/uL Hgb (13.0-17.5) gm/dL Hct (39.0-53.0) % MCHC (31.0-37.0) g/dL RDW (11.5-15.5) % Plt Count (150-450) k/uL Neutrophils # (1.3-7.7) k/uL Lymphocytes # (1.0-4.8) k/uL ABG pH 7.27 L (7.35-7.45) ABG pCO2 69 H (35-45) mmHg ABG pO2 (83-108) mmHg ABG HCO3 32 H (21-25) mmol/L ABG Total CO2 34 H (19-24) mmol/L ABG O2 Saturation (94-97) % Potassium (3.5-5.1) mmol/L Chloride (98-107) mmol/L Carbon Dioxide (22-30) mmol/L BUN (9-20) mg/dL Creatinine (0.66-1.25) mg/dL Glucose (74-99) mg/dL POC Glucose (mg/dL) 190 H 210 H (75-99) mg/dL Calcium (8.4-10.2) mg/dL Phosphorus (2.5-4.5) mg/dL Magnesium (1.6-2.3) mg/dL 12/31/18 12/31/18 12/31/18 Range/Units 04:00 04:00 04:14 WBC 19.4 H (3.8-10.6) k/uL RBC 3.62 L (4.30-5.90) m/uL Hgb 10.4 L (13.0-17.5) gm/dL Hct 35.6 L (39.0-53.0) % MCHC 29.1 L (31.0-37.0) g/dL RDW 18.4 H (11.5-15.5) % Plt Count 128 L (150-450) k/uL Neutrophils # 18.1 H (1.3-7.7) k/uL Lymphocytes # 0.4 L (1.0-4.8) k/uL ABG pH 7.31 L (7.35-7.45) ABG pCO2 64 H (35-45) mmHg ABG pO2 115 H (83-108) mmHg ABG HCO3 32 H (21-25) mmol/L ABG Total CO2 34 H (19-24) mmol/L ABG O2 Saturation 97.3 H (94-97) % Potassium (3.5-5.1) mmol/L Chloride 110 H (98-107) mmol/L Carbon Dioxide 35 H (22-30) mmol/L BUN 23 H (9-20) mg/dL Creatinine 0.60 L (0.66-1.25) mg/dL Glucose 186 H (74-99) mg/dL POC Glucose (mg/dL) (75-99) mg/dL Calcium 8.2 L (8.4-10.2) mg/dL Phosphorus 2.1 L (2.5-4.5) mg/dL Magnesium 2.5 H (1.6-2.3) mg/dL 12/31/18 12/31/18 12/31/18 Range/Units 06:04 08:03 11:45 WBC (3.8-10.6) k/uL RBC (4.30-5.90) m/uL Hgb (13.0-17.5) gm/dL Hct (39.0-53.0) % MCHC (31.0-37.0) g/dL RDW (11.5-15.5) % Plt Count (150-450) k/uL Neutrophils # (1.3-7.7) k/uL Lymphocytes # (1.0-4.8) k/uL ABG pH (7.35-7.45) ABG pCO2 (35-45) mmHg ABG pO2 (83-108) mmHg ABG HCO3 (21-25) mmol/L ABG Total CO2 (19-24) mmol/L ABG O2 Saturation (94-97) % Potassium (3.5-5.1) mmol/L Chloride (98-107) mmol/L Carbon Dioxide (22-30) mmol/L BUN (9-20) mg/dL Creatinine (0.66-1.25) mg/dL Glucose (74-99) mg/dL POC Glucose (mg/dL) 221 H 161 H 165 H (75-99) mg/dL Calcium (8.4-10.2) mg/dL Phosphorus (2.5-4.5) mg/dL Magnesium (1.6-2.3) mg/dL 12/31/18 Range/Units 13:52 WBC (3.8-10.6) k/uL RBC (4.30-5.90) m/uL Hgb (13.0-17.5) gm/dL Hct (39.0-53.0) % MCHC (31.0-37.0) g/dL RDW (11.5-15.5) % Plt Count (150-450) k/uL Neutrophils # (1.3-7.7) k/uL Lymphocytes # (1.0-4.8) k/uL ABG pH (7.35-7.45) ABG pCO2 (35-45) mmHg ABG pO2 (83-108) mmHg ABG HCO3 (21-25) mmol/L ABG Total CO2 (19-24) mmol/L ABG O2 Saturation (94-97) % Potassium (3.5-5.1) mmol/L Chloride (98-107) mmol/L Carbon Dioxide (22-30) mmol/L BUN (9-20) mg/dL Creatinine (0.66-1.25) mg/dL Glucose (74-99) mg/dL POC Glucose (mg/dL) 189 H (75-99) mg/dL Calcium (8.4-10.2) mg/dL Phosphorus (2.5-4.5) mg/dL Magnesium (1.6-2.3) mg/dL Microbiology - Last 24 Hours (Table) 12/29/18 23:54 Gram Stain - Preliminary Sputum Sputum Culture - Preliminary Yeast species 12/24/18 11:30 Blood Culture - Final Blood No Growth after 144 hours 12/24/18 09:40 Blood Culture - Final Blood No Growth after 144 hours Assessment and Plan Plan: 1 acute hypoxic respiratory failure/ARDS with diffuse bilateral pulmonary infiltrates currently intubated on a mechanical ventilator. The patient presented with ongoing aspiration and subsequently developed diffuse bilateral pulmonary infiltrates and currently the patient is intubated sedated and paralyzed on a mechanical ventilator. The patient remains on low tidal volume ventilation with permissive hypercapnia. There is been some limited improvement in the oxygenation. The necessity ventilator changes will be done for today. Chest x-ray findings are essentially unchanged and the patient has no significan t repositioning of the orotracheal tube. 2 metastatic esophageal cancer currently on FOLFOX systemic chemotherapy might the patient has local recurrence in his stomach and metastases to his lumbar sp ine 3 recurrent aspiration with poor tolerability of oral intake and the patient is having frequent emesis 4 patient remains nothing by mouth, unable to meet caloric requirements secondary to above, currently on TPN for nutritional support 5 leukocytosis, with a white cell count of 19 6 oropharyngeal candidiasis, currently on IV Diflucan 7 severe respiratory acidosis improved with some further adjustments in the tidal volume and the respiratory rate. Currently the patient is undergoing pe rmissive hypercapnia. 8 acute hyperkalemia secondary to severe metabolic acidosis, potassium level is being followed up 9 generalized anxiety disorder 10 shock with profound hypotension improved on few mics of norepinephrine infusion for blood pressure support. Plan Condition is extremely critical. Down the FiO2 down to 50%. The PEEP down to 12. Keep the Patient Sedated and Paralyzed for Now. Cut down the IV Fluids to KVO. Wean off Pressors and Discontinue the Norepinephrine Infusion. Continue TPN for Nutritional Support. Continue Same Antibiotic Coverage. Continue IV Solu Medrol. Echocardiogram Was Ordered for Today and There Is Also Still Pending for Now. Condition Remains Extremely Critical. Prognosis Poor Based on the Above-Mentioned Comorbidities Specially the Presence of Ascitic Esophageal Cancer. Family Is Updated. We'll Continue to Follow. This Evaluation Was Done and the More Than 30 Minutes.
[2018-12-31] MEDS: SODIUM CHLORIDE 0.9% 1,000 ML IV SCH ×2 (15:51→20:10)
--- NOTE | 2018-12-31 17:21 | P.PN ---
Subjective Progress Note Date: 12/31/18 This is a 48-year-old gentleman with history of esophageal cancer, completed radiation and chemotherapy, history of gastric pull-through, recent biopsy reporting adenocarcinoma with chemotherapy resumed. T-max on admission 100.3, WBC 14.6, neutrophils normal, hemoglobin ,platelets, electrolytes essentially normal.Currently T-max 100.2, WBC improving, down to 12.4.. Maintained on IV fluid hydration of D5.45 MLS per hour, cefepime, vancomycin. Speech consulted to evaluate for silent aspiration(prior history of PEG tube which has been discontinued). Chest x-ray reported new multifocal airspace disease possible multifocal pneumonia versus pulmonary edema. F/U chest x-ray this morning with no significant change. On admission patient had been satting high 90s on room air. During the afternoon patient sats decreased to 93-94%. Last night, patient desatted to 70s to 80s %, A teamed called, received a dose of Lasix 40 IV push and placed on BiPAP. BiPAP weaned off currently on 15 L high flow nasal cannula this morning, maintaining O2 sats of 93%. No further nausea vomiting or diarrhea. Tolerating clear liquid diet. 12/26/2018 Tested negative for influenza, CT negative for PE, received a couple doses of Lasix for potential pulmonary edema, Swallow evaluation per speech therapy with no aspiration observed, universal aspiration precautions recommended..During the night, patient desatted, did not respond to BiPAP, transferred to ICU and placed on Airvo. Maintaining O2 sats of low 90s on 80% airvo. Maintained on IV antibiotics of vancomycin, Maxipime as per infectious disease. T-max 100.4,WBC WNL. Preliminary blood cultures negative at 24 hours .Continues on nebulized bronchodilators. Feels better this morning. 12/27/2018: She remains on high flow nasal cannula oxygen. Pulse ox is 92%. He remains on IV vancomycin plus Maxipime for antibiotic coverage. Solu-Medrol was started yesterday and seems to help. He remains nothing by mouth for suspected chronic aspiration. His is at bedside. Chest x-ray today shows worsening interstitial airspace disease. Clinically he feels better. Staff report he is doing better. 12/28/2018: Patient's chest x-ray shortness of breath continue worsen. He is unable to move significantly not descending. He remains on Airvo. His remains at bedside. I discussed this case with Dr. Wade, he is considering bronchoscopy, but fears that he would end up being intubated and unable to ween.Exact cause of his symptoms are unknown without multifactorial due to aspiration pneumonia, chemical pneumonitis due to chemotherapy, and other factors. 12/29/2018 Maintained on vancomycin and cefepime as per ID. Remains airvo de pendent, maintaining O2 sats of 95% on 60%. chest x-ray reporting stable bilateral pneumonia, ARDS, or pulmonary edema; diffuse increase in opacification to the right lung. Recurrent emesis , aspiration risks changed to NPO, TPN ordered. Blood sugars controlled. Oral thrush, Diflucan initiated. T-max 99.9, WBC down to 15.1. 12/30/2018 respiratory status continued to deteriorate yesterday and patient required intubation yesterday afternoon. Chest x-ray reporting slight improvement in diffuse pulmonary edema, persistent interstitial opacity's bilaterally right more than left, bibasilar atelectasis. ABGs reflected severe respiratory acidosis this morning. FiO2 has been weaned down to 70%, PEEP has been weaned down to 14. Mild sinus tachycardia. Currently on pressor support of Levophed 40 mcgs, and on chemical paralysis with Nimbex. Right pupil fixed and dilated, unstable at this time for transfer to CT. potassium elevated at 6.2 received sodium bicarb D50, insulin, down to 5.8. Afebrile, White count up to 52, on Merrem ,Vancomycin and Diflucan. Repeat cultures sent. Maintained on TPN. Continues on nebulized bronchodilators, IV steroids 12/31/18 Maintained on Nimbex drip, ABGs improved with FiO2 decreased to 50% and PEEP down to 12%,cuff leak resolved with ETT repositioned.Levophed weaned down to 2 mcgs. Maintained on TPN. Continues on nebulized bronchodilators, IV s teroids. Aggressive fluid resuscitation decreased, positive fluid balance with extremity edema .Afebrile,cultures negative. Objective - Vital Signs Vital signs: Vital Signs Temp 98.8 F 12/31/18 00:00 Pulse 104 H 12/31/18 13:30 Resp 38 H 12/31/18 13:30 BP 90/63 12/31/18 13:30 Pulse Ox 93 L 12/31/18 13:30 Intake & Output 12/30/18 12/31/18 12/31/18 18:59 06:59 18:59 Intake Total 2151.790 3422.767 1202.497 Output Total 1207 980 815 Balance 846.738 5722.767 387.497 Weight 77.1 kg Intake: IV 1830 1940 1050 .9 450 Fluconazole in NaCl,Iso- 50 Osm 100 mg In Saline 1 50ml.bag @ 50 mls/hr IVPB DAILY [facility] Rx#:[id number] Meropenem 1 gm In Sodium 100 100 200 Chloride 0.9% 100 ml @ 200 mls/hr IVPB Q8HR [facility] Rx#:[id number] Mvi, Adult No.4 with Vit 280 840 490 K 10 ml Trace (Conc-1Ml/ Dose) 1 ml Sodium Acetate 35 meq Calcium Gluconate 1 gm In Amino Acid 5%- D15w 1,000 ml @ 70 mls/hr IV .BY DURATION [facility] Rx#: [id number] Mvi, Adult No.4 with Vit 250 K 10 ml Trace (Conc-1Ml/ Dose) 1 ml Sodium Acetate 35 meq Potassium Chloride 10 meq Potassium Phosphate 15 mmol Calcium Gluconate 1 gm In Amino Acid 5%-D15w 1,000 ml @ 30 mls/hr IV .Q24H [facility] Rx#:[id number] Sodium Chloride 0.9% 1, 450 750 360 000 ml @ 20 mls/hr IV . Q24H [facility] Rx#:[id number] Vanco 250 250 Intake, IV Titration 299.006 0443.767 152.497 Amount Cisatracurium 200 mg In 11.895 64.074 52.497 Sodium Chloride 0.9% 180 ml @ 1 MCG/KG/MIN 4.758 mls/hr IV .Q24H [facility] Rx#: [id number] Mvi, Adult No.4 with Vit 1038.5 K 10 ml Trace (Conc-1Ml/ Dose) 1 ml Sodium Acetate 35 meq Calcium Gluconate 1 gm In Amino Acid 5%- D15w 1,000 ml @ 70 mls/hr IV .BY DURATION [facility] Rx#: [id number] Norepinephrine 32 mg In 103.194 109.531 Sodium Chloride 0.9% 218 ml @ 0.05 MCG/KG/MIN 1. 807 mls/hr IV .Q24H [facility] Rx#:[id number] Propofol 1,000 mg In 146.701 270.662 100 Empty Bag 1 bag @ Titrate IV .Q0M [facility] Rx#: [id number] Oral 60 Output: Gastric Drainage 200 Urine 1007 980 615 Oral Regurgitation 200 Other: Voiding Method Indwelling Catheter Indwelling Catheter Indwelling Catheter ABP, PAP, CO, CI - Last Documented Arterial Blood Pressure 84/54 - Exam VITAL SIGNS: As above GENERAL: Lying in bed, calm, intubated, sedated and chemically paralyzed HEENT: Conjunctivae normal. Pupils equal, reactive. OG present, oral mucosa dry NECK: Supple, No JVD,No LNs CARDIOVASCULAR: S1, S2 regular. Mild tachycardia, No murmur, no rub, no gallop RESPIRATION: Breath sounds diminished with bibasilar crackles, greater in the left ABDOMEN: Soft, nondistended, nontender. no masses palpable. Bowel sounds heard. LEGS: positive edema. no cyanosis, no clubbing. NERVOUS SYSTEM: Unable to evaluate at this time, as patient intubated sedated and paralyzed Microbiology 12/29/18 23:54 Sputum Gram Stain - Preliminary 12/29/18 23:54 Sputum Sputum Culture - Preliminary Yeast species 12/24/18 11:30 Blood Blood Culture - Final No Growth after 144 hours 12/24/18 09:40 Blood Blood Culture - Final No Growth after 144 hours 12/26/18 03:35 Sputum Gram Stain - Final 12/26/18 03:35 Sputum Sputum Culture - Final - Labs CBC & Chem 7: 12/31/18 04:00 12/31/18 04:00 Labs: Abnormal Lab Results - Last 24 Hours (Table) 12/30/18 12/30/18 12/30/18 Range/Units 15:46 17:02 17:09 WBC (3.8-10.6) k/uL RBC (4.30-5.90) m/uL Hgb (13.0-17.5) gm/dL Hct (39.0-53.0) % MCHC (31.0-37.0) g/dL RDW (11.5-15.5) % Plt Count (150-450) k/uL Neutrophils # (1.3-7.7) k/uL Lymphocytes # (1.0-4.8) k/uL ABG pH 7.13 L* (7.35-7.45) ABG pCO2 93 H* (35-45) mmHg ABG pO2 126 H (83-108) mmHg ABG HCO3 31 H (21-25) mmol/L ABG Total CO2 34 H (19-24) mmol/L ABG O2 Saturation (94-97) % Potassium 5.3 H (3.5-5.1) mmol/L Chloride (98-107) mmol/L Carbon Dioxide (22-30) mmol/L BUN (9-20) mg/dL Creatinine (0.66-1.25) mg/dL Glucose (74-99) mg/dL POC Glucose (mg/dL) 184 H (75-99) mg/dL Calcium (8.4-10.2) mg/dL Phosphorus (2.5-4.5) mg/dL Magnesium (1.6-2.3) mg/dL 12/30/18 12/30/18 12/30/18 Range/Units 19:46 20:52 23:31 WBC (3.8-10.6) k/uL RBC (4.30-5.90) m/uL Hgb (13.0-17.5) gm/dL Hct (39.0-53.0) % MCHC (31.0-37.0) g/dL RDW (11.5-15.5) % Plt Count (150-450) k/uL Neutrophils # (1.3-7.7) k/uL Lymphocytes # (1.0-4.8) k/uL ABG pH 7.27 L (7.35-7.45) ABG pCO2 69 H (35-45) mmHg ABG pO2 (83-108) mmHg ABG HCO3 32 H (21-25) mmol/L ABG Total CO2 34 H (19-24) mmol/L ABG O2 Saturation (94-97) % Potassium (3.5-5.1) mmol/L Chloride (98-107) mmol/L Carbon Dioxide (22-30) mmol/L BUN (9-20) mg/dL Creatinine (0.66-1.25) mg/dL Glucose (74-99) mg/dL POC Glucose (mg/dL) 190 H 210 H (75-99) mg/dL Calcium (8.4-10.2) mg/dL Phosphorus (2.5-4.5) mg/dL Magnesium (1.6-2.3) mg/dL 12/31/18 12/31/18 12/31/18 Range/Units 04:00 04:00 04:14 WBC 19.4 H (3.8-10.6) k/uL RBC 3.62 L (4.30-5.90) m/uL Hgb 10.4 L (13.0-17.5) gm/dL Hct 35.6 L (39.0-53.0) % MCHC 29.1 L (31.0-37.0) g/dL RDW 18.4 H (11.5-15.5) % Plt Count 128 L (150-450) k/uL Neutrophils # 18.1 H (1.3-7.7) k/uL Lymphocytes # 0.4 L (1.0-4.8) k/uL ABG pH 7.31 L (7.35-7.45) ABG pCO2 64 H (35-45) mmHg ABG pO2 115 H (83-108) mmHg ABG HCO3 32 H (21-25) mmol/L ABG Total CO2 34 H (19-24) mmol/L ABG O2 Saturation 97.3 H (94-97) % Potassium (3.5-5.1) mmol/L Chloride 110 H (98-107) mmol/L Carbon Dioxide 35 H (22-30) mmol/L BUN 23 H (9-20) mg/dL Creatinine 0.60 L (0.66-1.25) mg/dL Glucose 186 H (74-99) mg/dL POC Glucose (mg/dL) (75-99) mg/dL Calcium 8.2 L (8.4-10.2) mg/dL Phosphorus 2.1 L (2.5-4.5) mg/dL Magnesium 2.5 H (1.6-2.3) mg/dL 12/31/18 12/31/18 12/31/18 Range/Units 06:04 08:03 11:45 WBC (3.8-10.6) k/uL RBC (4.30-5.90) m/uL Hgb (13.0-17.5) gm/dL Hct (39.0-53.0) % MCHC (31.0-37.0) g/dL RDW (11.5-15.5) % Plt Count (150-450) k/uL Neutrophils # (1.3-7.7) k/uL Lymphocytes # (1.0-4.8) k/uL ABG pH (7.35-7.45) ABG pCO2 (35-45) mmHg ABG pO2 (83-108) mmHg ABG HCO3 (21-25) mmol/L ABG Total CO2 (19-24) mmol/L ABG O2 Saturation (94-97) % Potassium (3.5-5.1) mmol/L Chloride (98-107) mmol/L Carbon Dioxide (22-30) mmol/L BUN (9-20) mg/dL Creatinine (0.66-1.25) mg/dL Glucose (74-99) mg/dL POC Glucose (mg/dL) 221 H 161 H 165 H (75-99) mg/dL Calcium (8.4-10.2) mg/dL Phosphorus (2.5-4.5) mg/dL Magnesium (1.6-2.3) mg/dL 12/31/18 Range/Units 13:52 WBC (3.8-10.6) k/uL RBC (4.30-5.90) m/uL Hgb (13.0-17.5) gm/dL Hct (39.0-53.0) % MCHC (31.0-37.0) g/dL RDW (11.5-15.5) % Plt Count (150-450) k/uL Neutrophils # (1.3-7.7) k/uL Lymphocytes # (1.0-4.8) k/uL ABG pH (7.35-7.45) ABG pCO2 (35-45) mmHg ABG pO2 (83-108) mmHg ABG HCO3 (21-25) mmol/L ABG Total CO2 (19-24) mmol/L ABG O2 Saturation (94-97) % Potassium (3.5-5.1) mmol/L Chloride (98-107) mmol/L Carbon Dioxide (22-30) mmol/L BUN (9-20) mg/dL Creatinine (0.66-1.25) mg/dL Glucose (74-99) mg/dL POC Glucose (mg/dL) 189 H (75-99) mg/dL Calcium (8.4-10.2) mg/dL Phosphorus (2.5-4.5) mg/dL Magnesium (1.6-2.3) mg/dL Microbiology - Last 24 Hours (Table) 12/29/18 23:54 Gram Stain - Preliminary Sputum Sputum Culture - Preliminary Yeast species 12/24/18 11:30 Blood Culture - Final Blood No Growth after 144 hours 12/24/18 09:40 Blood Culture - Final Blood No Growth after 144 hours Assessment and Plan Assessment: (1) Acute hypoxic respiratory failure, ARDS, ventilator dependent, chemically paralyzed, secondary to aspiration pneumonia,possible chemotherapy induced injury, possible metastatic lymphangitic (2) septic shock with severe leukocytosis, pressor dependent, multi-factorial; related to multiple comorbidities Current Visit: Yes Status: Acute Code(s): J96.01 - ACUTE RESPIRATORY FAILURE WITH HYPOXIA SNOMED Code(s): 92731861 (3) Acute pneumonitis, chemotherapy induced Current Visit: Yes Status: Acute Code(s): J18.9 - PNEUMONIA, UNSPECIFIED ORGANISM SNOMED Code(s): 453890409 (3) Aspiration pneumonia Current Visit: Yes Status: Acute Code(s): J69.0 - PNEUMONITIS DUE TO INHALATION OF FOOD AND VOMIT SNOMED Code(s): 258101102 (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 Recurrent esophageal cancer recent biopsy reporting adenocarcinoma with metastasis to L3 spine and to the stomach, chemotherapy resumed Current Visit: No Status: Acute Code(s): C15.9 - MALIGNANT NEOPLASM OF ESOPHAGUS, UNSPECIFIED SNOMED Code(s): 405589502 (7) Exercise-induced asthma (8) oral candidiasis (9) anxiety (10) hyperkalemia, secondary to metabolic acidosis (11) TPN Plan: Continue current medication regime ,monitoring and symptomatic treatment. Echo pending. Follow cultures closely, maintain IV antibiotics as per infecti ous disease. Continue nebulized bronchodilators, IV steroids, TPN. IV fluids decreased. Weaning of pressors in progress.Continues on chemical paralysis with nimbex. Prognosis is extremely guarded at this time. Strict aspiration precautions . Follow closely with multiple consults. Prognosis extremely guarded given multiple complex medical issues. The impression and plan of care has been dictated as directed. : I performed a history and examination of this patient, discussed the same with the dictator. I agree with the dictator's note ,documented as a scribe. Any additional findings or plans will be noted. Time taken: 35 minutes
[2018-12-31 17:55] LABS: Glucose,Whole Blood 197 mg/dL (75-99)
[2018-12-31] MEDS: CISATRACURIUM 200 MG in SODIUM CHLORIDE 0.9% 180 ML IV SCH (19:02)
[2018-12-31] MEDS: traZODone HCL 50 MG TAB PO SCH (20:23)
[2018-12-31] MEDS: HYDROmorphone 1 MG/ML 1 ML SYRINGE IVP PRN (20:25)
[2018-12-31 23:59] LABS: Glucose,Whole Blood 146 mg/dL (75-99)
[2019-01-01] MEDS: IPRATROPIUM-ALBUTEROL 3 ML NEB INHALATION SCH ×7 (00:47→23:55)
[2019-01-01] MEDS: HYDROmorphone 1 MG/ML 1 ML SYRINGE IVP PRN ×5 (01:27→20:03)
[2019-01-01] MEDS: PROPOFOL 1,000 MG in EMPTY BAG 1 BAG IV SCH ×8 (01:29→23:54)
[2019-01-01] MEDS: ARTIFICIAL TEARS-HYPROMELLOSE DROPS 15 ML BTL BOTH EYES SCH ×6 (04:03→23:39)
[2019-01-01 04:39] LABS: Anisocytosis Slight; Basophils % (A) 0 %; Eosinophils % (A) 0 %; HCT 31.9 % (39.0-53.0); HGB 9.6 gm/dL (13.0-17.5); Hypochromasia Marked; Lymphocytes # (A) 0.4 k/uL (1.0-4.8); Lymphocytes % (A) 4 %; MCH 29.1 pg (25.0-35.0); MCHC 29.9 g/dL (31.0-37.0); MCV 97.3 fL (80.0-100.0); Macrocytosis Slight; Mean Platelet Volume 9.6; Monocytes # (A) 0.3 k/uL (0-1.0); Monocytes % (A) 2 %; Neutrophils # (A) 11.9 k/uL (1.3-7.7); Neutrophils % (A) 94 %; Platelet Count 104 k/uL (150-450); Poikilocytosis Slight; RBC 3.28 m/uL (4.30-5.90); RDW 18.6 % (11.5-15.5); WBC 12.7 k/uL (3.8-10.6)
[2019-01-01 04:48] LABS: African American GFR (CKD) >90 (>60 ml/min/1.73 sqM); Anion Gap 0 mmol/L; Blood Urea Nitrogen 26 mg/dL (9-20); Calcium 8.3 mg/dL (8.4-10.2); Carbon Dioxide 34 mmol/L (22-30); Chloride 108 mmol/L (98-107); Glucose 167 mg/dL (74-99); Magnesium 2.6 mg/dL (1.6-2.3); Phosphorus 1.9 mg/dL (2.5-4.5); Potassium 4.4 mmol/L (3.5-5.1); Sodium 142 mmol/L (137-145)
[2019-01-01 05:20] LABS: ABG Base Excess 8.7 mmol/L; ABG HCO3 34 mmol/L (21-25); ABG Oxygen Saturation 91.8 % (94-97); ABG PCO2 60 mmHg (35-45); ABG PH 7.36 (7.35-7.45); ABG PO2 67 mmHg (83-108); ABG TCO2 36 mmol/L (19-24); Allen Test Performed? Yes
[2019-01-01] MEDS: VANCOMYCIN 1,500 MG in SODIUM CHLORIDE 0.9% 250 ML IVPB SCH ×3 (06:18→23:38)
[2019-01-01] MEDS: NOREPINEPHRINE 32 MG in SODIUM CHLORIDE 0.9% 218 ML IV SCH (06:24)
[2019-01-01 06:25] LABS: Glucose,Whole Blood 174 mg/dL (75-99)
[2019-01-01] MEDS: INSULIN ASPART (NovoLOG) 100 UNIT/ML VIAL SQ SCH ×4 (06:30→23:41)
[2019-01-01] MEDS: HEPARIN SODIUM,PORCINE 5,000 UNIT/ML 1 ML VIAL SQ SCH ×3 (07:02→23:40)
[2019-01-01] MEDS: FORMOTEROL FUMARATE 20 MCG/2 ML NEBU INHALATION SCH ×2 (07:38→19:48)
[2019-01-01] MEDS: BUDESONIDE 1 MG/2 ML NEBU INHALATION SCH ×2 (07:38→19:48)
--- NOTE | 2019-01-01 07:51 | XR ---
EXAMINATION TYPE: XR chest 1V portable DATE OF EXAM: 01/01/2019 COMPARISON: 12/30/2018 INDICATION: Pneumonitis TECHNIQUE: Single frontal view of the chest is obtained. FINDINGS: The heart size is normal. The pulmonary vasculature is prominent. There is diffuse increased lung markings at the lung bases. Correlate for pneumonia. Pulmonary edema could be considered. There is some improvement from the comparison study. Small left pleural effusion is suspected. Endotracheal tube tip is 1.4 cm from the raul and can be pulled back from this location. A left anam tral venous catheter is present with the tip in the superior vena cava region. A right central venous catheter port has tip within the right atrium. Nasogastric tube is present with the tip near the gas troesophageal junction which is stable in position from prior study. This could be advanced for more typical placement. IMPRESSION: 1. Mild improvement of bibasilar infiltrates. 2. Small left pleural effusion. 3. Endotracheal tube tip appears to be low-lying and can be pulled back from this location. 4. Nasogastric tube tip in the distal esophagus region and could be advanced for more typical for [employer]. A [place] level critical message alert has been initiated for Asa Ortiz via the [employer] Critical Results System on 01/01/2019 7:49 AM. This message alert has been sent to Asa Ortiz via the preferences provided by the clinician for the receipt of Radiology Critical Findings. Message ID [id number].
[2019-01-01] MEDS ORDERED: FUROSEMIDE 10 MG/ML 4 ML VIAL IV STA (08:50)
[2019-01-01] MEDS: SODIUM PHOSPHATE 10 MMOL in SODIUM CHLORIDE 0.9% 100 ML IVPB SCH ×2 (09:40→09:41)
[2019-01-01] MEDS: FLUCONAZOLE IN NACL,ISO-OSM 100 MG in SALINE 1 50ML.BAG IVPB SCH (09:56)
[2019-01-01] MEDS: CHLORHEXIDINE GLUCONATE 15 ML CUP MUCOUS MEM SCH ×2 (09:56→20:38)
[2019-01-01] MEDS: methylPREDNISolone SOD SUCCI 125 MG/2 ML VIAL IV SCH ×3 (09:57→23:39)
[2019-01-01] MEDS: PANTOPRAZOLE 40 MG/10 ML VIAL IVP SCH ×2 (09:57→20:37)
[2019-01-01] MEDS: SENNOSIDES-DOCUSATE SODIUM 1 EACH TAB PO SCH ×2 (09:58→20:38)
[2019-01-01] MEDS: MEROPENEM 1 GM in SODIUM CHLORIDE 0.9% 100 ML IVPB SCH ×3 (09:59→23:39)
[2019-01-01] MEDS: CISATRACURIUM 200 MG in SODIUM CHLORIDE 0.9% 180 ML IV SCH ×2 (10:09→23:54)
--- NOTE | 2019-01-01 11:08 | P.PN ---
Subjective Progress Note Date: 01/01/19 The patient remains sedated on the ventilator. He is still requiring PEEP of 12 mm, with FiO2 now 50%. No fevers or chills. Mild generalized anasarca noted. He is tolerating tube feeds Objective - Vital Signs Vital signs: Vital Signs Temp 98.1 F 01/01/19 08:00 Pulse 100 01/01/19 10:00 Resp 33 H 01/01/19 10:00 BP 90/63 01/01/19 10:00 Pulse Ox 93 L 01/01/19 10:00 Intake & Output 12/31/18 01/01/19 01/01/19 18:59 06:59 18:59 Intake Total 2258.167 2841.746 929.094 Output Total 1190 865 235 Balance 9264.707 1885.746 694.094 Weight 86 kg Intake: IV 1850 1430 740 Fluconazole in NaCl,Iso- 50 Osm 100 mg In Saline 1 50ml.bag @ 50 mls/hr IVPB DAILY [facility] Rx#:[id number] Meropenem 1 gm In Sodium 300 100 100 Chloride 0.9% 100 ml @ 200 mls/hr IVPB Q8HR [facility] Rx#:[id number] Mvi, Adult No.4 with Vit 840 840 280 K 10 ml Trace (Conc-1Ml/ Dose) 1 ml Sodium Acetate 35 meq Calcium Gluconate 1 gm In Amino Acid 5%- D15w 1,000 ml @ 70 mls/hr IV .BY DURATION [facility] Rx#: [id number] Sodium Chloride 0.9% 1, 460 240 60 000 ml @ 20 mls/hr IV . Q24H [facility] Rx#:[id number] Vanco 250 250 250 Intake, IV Titration 284.212 0720.746 189.094 Amount Cisatracurium 200 mg In 52.497 75.176 89.094 Sodium Chloride 0.9% 180 ml @ 1 MCG/KG/MIN 4.758 mls/hr IV .Q24H [facility] Rx#: [id number] Mvi, Adult No.4 with Vit 1038.5 K 10 ml Trace (Conc-1Ml/ Dose) 1 ml Sodium Acetate 35 meq Calcium Gluconate 1 gm In Amino Acid 5%- D15w 1,000 ml @ 70 mls/hr IV .BY DURATION [facility] Rx#: [id number] Norepinephrine 32 mg In 60.143 Sodium Chloride 0.9% 218 ml @ 0.05 MCG/KG/MIN 1. 807 mls/hr IV .Q24H [facility] Rx#:[id number] Propofol 1,000 mg In 295.527 298.070 100 Empty Bag 1 bag @ Titrate IV .Q0M [facility] Rx#: [id number] Output: Gastric Drainage 200 Urine 990 865 235 Other: Voiding Method Indwelling Catheter Indwelling Catheter # Bowel Movements 1 ABP, PAP, CO, CI - Last Documented Arterial Blood Pressure 134/71 - Constitutional General appearance: Present: no acute distress - Respiratory Respiratory: bilateral: diminished, rales - Cardiovascular Rhythm: regular Heart sounds: normal: S1, S2 - Gastrointestinal General gastrointestinal: Present: normal bowel sounds, soft - Integumentary Integumentary: Present: normal - Musculoskeletal Musculoskeletal Comment(s): 1+ upper and lower extremity edema Musculoskeletal: Present: generalized weakness - Labs CBC & Chem 7: 01/01/19 04:00 01/01/19 04:00 Labs: Abnormal Lab Results - Last 24 Hours (Table) 12/31/18 12/31/18 12/31/18 Range/Units 11:45 13:52 17:40 WBC (3.8-10.6) k/uL RBC (4.30-5.90) m/uL Hgb (13.0-17.5) gm/dL Hct (39.0-53.0) % MCHC (31.0-37.0) g/dL RDW (11.5-15.5) % Plt Count (150-450) k/uL Neutrophils # (1.3-7.7) k/uL Lymphocytes # (1.0-4.8) k/uL ABG pCO2 (35-45) mmHg ABG pO2 (83-108) mmHg ABG HCO3 (21-25) mmol/L ABG Total CO2 (19-24) mmol/L ABG O2 Saturation (94-97) % Chloride (98-107) mmol/L Carbon Dioxide (22-30) mmol/L BUN (9-20) mg/dL Creatinine (0.66-1.25) mg/dL Glucose (74-99) mg/dL POC Glucose (mg/dL) 165 H 189 H 197 H (75-99) mg/dL Calcium (8.4-10.2) mg/dL Phosphorus (2.5-4.5) mg/dL Magnesium (1.6-2.3) mg/dL 12/31/18 01/01/19 01/01/19 Range/Units 23:45 04:00 04:00 WBC 12.7 H (3.8-10.6) k/uL RBC 3.28 L (4.30-5.90) m/uL Hgb 9.6 L (13.0-17.5) gm/dL Hct 31.9 L (39.0-53.0) % MCHC 29.9 L (31.0-37.0) g/dL RDW 18.6 H (11.5-15.5) % Plt Count 104 L (150-450) k/uL Neutrophils # 11.9 H (1.3-7.7) k/uL Lymphocytes # 0.4 L (1.0-4.8) k/uL ABG pCO2 (35-45) mmHg ABG pO2 (83-108) mmHg ABG HCO3 (21-25) mmol/L ABG Total CO2 (19-24) mmol/L ABG O2 Saturation (94-97) % Chloride 108 H (98-107) mmol/L Carbon Dioxide 34 H (22-30) mmol/L BUN 26 H (9-20) mg/dL Creatinine 0.46 L (0.66-1.25) mg/dL Glucose 167 H (74-99) mg/dL POC Glucose (mg/dL) 146 H (75-99) mg/dL Calcium 8.3 L (8.4-10.2) mg/dL Phosphorus 1.9 L (2.5-4.5) mg/dL Magnesium 2.6 H (1.6-2.3) mg/dL 01/01/19 01/01/19 Range/Units 05:15 06:21 WBC (3.8-10.6) k/uL RBC (4.30-5.90) m/uL Hgb (13.0-17.5) gm/dL Hct (39.0-53.0) % MCHC (31.0-37.0) g/dL RDW (11.5-15.5) % Plt Count (150-450) k/uL Neutrophils # (1.3-7.7) k/uL Lymphocytes # (1.0-4.8) k/uL ABG pCO2 60 H (35-45) mmHg ABG pO2 67 L (83-108) mmHg ABG HCO3 34 H (21-25) mmol/L ABG Total CO2 36 H (19-24) mmol/L ABG O2 Saturation 91.8 L (94-97) % Chloride (98-107) mmol/L Carbon Dioxide (22-30) mmol/L BUN (9-20) mg/dL Creatinine (0.66-1.25) mg/dL Glucose (74-99) mg/dL POC Glucose (mg/dL) 174 H (75-99) mg/dL Calcium (8.4-10.2) mg/dL Phosphorus (2.5-4.5) mg/dL Magnesium (1.6-2.3) mg/dL Microbiology - Last 24 Hours (Table) 12/31/18 20:40 Gram Stain - Preliminary Sputum Sputum Culture - Preliminary 12/29/18 23:54 Gram Stain - Preliminary Sputum Sputum Culture - Preliminary Yeast species Assessment and Plan (1) Acute respiratory failure with hypoxia Narrative/Plan: Patient is currently on the ventilator. The case discussed [facility]. Initially under pressures was quite high and the patient is requiring higher FiO2 was and PEEP. This has improved though PEEP is still 12 mm. FiO2 was down to 50%. Chest x-ray shows mild improvement especially in the bases office infiltrative changes. Continue current management according to the critical care service. Current Visit: Yes Status: Acute Priority: High Code(s): J96.01 - ACUTE RESPIRATORY FAILURE WITH HYPOXIA SNOMED Code(s): 28119916 (2) Acute pneumonitis Narrative/Plan: Case discussed with the patient's , as well as critical care service. The differentials, as noted, were aspiration pneumonitis with ARDS, chemotherapy related pneumonitis, or lymphangitic carcinomatosis. DR Ortiz feels that based on the clinical picture, aspiration pneumonitis with ARDS is most likely. In that situation, there is a higher likelihood that the patient's especially failure can be reversed. Rapidly progressive lymphangitic carcinomatosis would carry the worse prognosis. If the patient's parameters are not improving, it was discussed that bronchoscopy would be considered to check for malignancy. Current Visit: Yes Status: Acute Code(s): J18.9 - PNEUMONIA, UNSPECIFIED ORGANISM SNOMED Code(s): 424187541 (3) Esophageal cancer Narrative/Plan: Treatment on hold, until and unless acute situation resolves sufficiently. Current Visit: No Status: Acute Code(s): C15.9 - MALIGNANT NEOPLASM OF ESOPHAGUS, UNSPECIFIED SNOMED Code(s): 100965964
[2019-01-01 12:17] LABS: Creatine Kinase <20 U/L (55-170); Triglycerides 110 mg/dL (<150)
[2019-01-01 12:54] LABS: Glucose,Whole Blood 157 mg/dL (75-99)
--- NOTE | 2019-01-01 15:10 | P.PN ---
Subjective Progress Note Date: 01/01/19 This is a 48-year-old gentleman with history of esophageal cancer, completed radiation and chemotherapy, history of gastric pull-through, recent biopsy reporting adenocarcinoma with chemotherapy resumed. T-max on admission 100.3, WBC 14.6, neutrophils normal, hemoglobin ,platelets, electrolytes essentially normal.Currently T-max 100.2, WBC improving, down to 12.4.. Maintained on IV fluid hydration of D5.45 MLS per hour, cefepime, vancomycin. Speech consulted to evaluate for silent aspiration(prior history of PEG tube which has been discontinued). Chest x-ray reported new multifocal airspace disease possible multifocal pneumonia versus pulmonary edema. F/U chest x-ray this morning with no significant change. On admission patient had been satting high 90s on room air. During the afternoon patient sats decreased to 93-94%. Last night, patient desatted to 70s to 80s %, A teamed called, received a dose of Lasix 40 IV push and placed on BiPAP. BiPAP weaned off currently on 15 L high flow nasal cannula this morning, maintaining O2 sats of 93%. No further nausea vomiting or diarrhea. Tolerating clear liquid diet. 12/26/2018 Tested negative for influenza, CT negative for PE, received a couple doses of Lasix for potential pulmonary edema, Swallow evaluation per speech therapy with no aspiration observed, universal aspiration precautions recommended..During the night, patient desatted, did not respond to BiPAP, transferred to ICU and placed on Airvo. Maintaining O2 sats of low 90s on 80% airvo. Maintained on IV antibiotics of vancomycin, Maxipime as per infectious disease. T-max 100.4,WBC WNL. Preliminary blood cultures negative at 24 hours .Continues on nebulized bronchodilators. Feels better this morning. 12/27/2018: She remains on high flow nasal cannula oxygen. Pulse ox is 92%. He remains on IV vancomycin plus Maxipime for antibiotic coverage. Solu-Medrol was started yesterday and seems to help. He remains nothing by mouth for suspected chronic aspiration. His is at bedside. Chest x-ray today shows worsening interstitial airspace disease. Clinically he feels better. Staff report he is doing better. 12/28/2018: Patient's chest x-ray shortness of breath continue worsen. He is unable to move significantly not descending. He remains on Airvo. His remains at bedside. I discussed this case with Dr. Wade, he is considering bronchoscopy, but fears that he would end up being intubated and unable to ween.Exact cause of his symptoms are unknown without multifactorial due to aspiration pneumonia, chemical pneumonitis due to chemotherapy, and other factors. 12/29/2018 Maintained on vancomycin and cefepime as per ID. Remains airvo de pendent, maintaining O2 sats of 95% on 60%. chest x-ray reporting stable bilateral pneumonia, ARDS, or pulmonary edema; diffuse increase in opacification to the right lung. Recurrent emesis , aspiration risks changed to NPO, TPN ordered. Blood sugars controlled. Oral thrush, Diflucan initiated. T-max 99.9, WBC down to 15.1. 12/30/2018 respiratory status continued to deteriorate yesterday and patient required intubation yesterday afternoon. Chest x-ray reporting slight improvement in diffuse pulmonary edema, persistent interstitial opacity's bilaterally right more than left, bibasilar atelectasis. ABGs reflected severe respiratory acidosis this morning. FiO2 has been weaned down to 70%, PEEP has been weaned down to 14. Mild sinus tachycardia. Currently on pressor support of Levophed 40 mcgs, and on chemical paralysis with Nimbex. Right pupil fixed and dilated, unstable at this time for transfer to CT. potassium elevated at 6.2 received sodium bicarb D50, insulin, down to 5.8. Afebrile, White count up to 52, on Merrem ,Vancomycin and Diflucan. Repeat cultures sent. Maintained on TPN. Continues on nebulized bronchodilators, IV steroids 12/31/18 Maintained on Nimbex drip, ABGs improved with FiO2 decreased to 50% and PEEP down to 12%,cuff leak resolved with ETT repositioned.Levophed weaned down to 2 mcgs. Maintained on TPN. Continues on nebulized bronchodilators, IV s teroids. Aggressive fluid resuscitation decreased, positive fluid balance with extremity edema .Afebrile,cultures negative. 01/01/2019 sputum culture report and Fabi glabrata and Fabi albicans, repeat sputum culture pending. Maintained on IV antibiotics of vancomycin and Merrem.afebrile,WBC decreased to 12.7.Attempted Nimbex weaning, not tolerated, peak pressure reading, and oxygenating, desatted into the 80s.Nimbex resumed. patient was maintaining O2 sats in the high 80s, ABGs noted, including PO2 of 67. Vent changes: Rate decreased, FiO2 increased to 60%,complete maintained and 12. chest x-ray reporting mild improvement of bibasilar infiltrates. IV fluids decreased yesterday,continues on 0.9 at KVO, as well as TPN.24 hour I&O reflecting a negative fluid balance.Positive bowel movement this morning. Objective - Vital Signs Vital signs: Vital Signs Temp 98.1 F 01/01/19 08:00 Pulse 97 01/01/19 08:30 Resp 38 H 01/01/19 08:30 BP 90/63 01/01/19 08:30 Pulse Ox 91 L 01/01/19 08:30 Intake & Output 12/31/18 01/01/19 01/01/19 18:59 06:59 18:59 Intake Total 2258.167 2841.746 430 Output Total 1190 865 135 Balance 6079.912 9838.746 295 Weight 86 kg Intake: IV 1850 1430 430 Meropenem 1 gm In Sodium 300 100 Chloride 0.9% 100 ml @ 200 mls/hr IVPB Q8HR [facility] Rx#:[id number] Mvi, Adult No.4 with Vit 840 840 140 K 10 ml Trace (Conc-1Ml/ Dose) 1 ml Sodium Acetate 35 meq Calcium Gluconate 1 gm In Amino Acid 5%- D15w 1,000 ml @ 70 mls/hr IV .BY DURATION [facility] Rx#: [id number] Sodium Chloride 0.9% 1, 460 240 40 000 ml @ 20 mls/hr IV . Q24H [facility] Rx#:[id number] Vanco 250 250 250 Intake, IV Titration 400.099 4298.746 Amount Cisatracurium 200 mg In 52.497 75.176 Sodium Chloride 0.9% 180 ml @ 1 MCG/KG/MIN 4.758 mls/hr IV .Q24H [facility] Rx#: [id number] Mvi, Adult No.4 with Vit 1038.5 K 10 ml Trace (Conc-1Ml/ Dose) 1 ml Sodium Acetate 35 meq Calcium Gluconate 1 gm In Amino Acid 5%- D15w 1,000 ml @ 70 mls/hr IV .BY DURATION [facility] Rx#: [id number] Norepinephrine 32 mg In 60.143 Sodium Chloride 0.9% 218 ml @ 0.05 MCG/KG/MIN 1. 807 mls/hr IV .Q24H [facility] Rx#:[id number] Propofol 1,000 mg In 295.527 298.070 Empty Bag 1 bag @ Titrate IV .Q0M [facility] Rx#: [id number] Output: Gastric Drainage 200 Urine 990 865 135 Other: Voiding Method Indwelling Catheter Indwelling Catheter # Bowel Movements 1 ABP, PAP, CO, CI - Last Documented Arterial Blood Pressure 112/60 - Exam VITAL SIGNS: As above GENERAL: Lying in bed, calm, intubated, sedated and chemically paralyzed HEENT: Conjunctivae normal. Pupils equal, OG present, oral mucosa dry NECK: Supple, No JVD,No LNs CARDIOVASCULAR: S1, S2 regular. Mild tachycardia, No murmur, no rub, no gallop RESPIRATION: Breath sounds diminished with bibasilar crackles, greater in the left ABDOMEN: Soft, nondistended, nontender. no masses palpable. Bowel sounds heard. LEGS: positive edema. no cyanosis, no clubbing. NERVOUS SYSTEM: Unable to evaluate at this time, as patient intubated sedated and paralyzed Microbiology 12/29/18 23:54 Sputum Gram Stain - Final 12/29/18 23:54 Sputum Sputum Culture - Final Fabi glabrata Fabi albicans 12/31/18 20:40 Sputum Gram Stain - Preliminary 12/31/18 20:40 Sputum Sputum Culture - Preliminary 12/24/18 11:30 Blood Blood Culture - Final No Growth after 144 hours 12/24/18 09:40 Blood Blood Culture - Final No Growth after 144 hours 12/26/18 03:35 Sputum Gram Stain - Final 12/26/18 03:35 Sputum Sputum Culture - Final - Labs CBC & Chem 7: 01/01/19 04:00 01/01/19 04:00 Labs: Abnormal Lab Results - Last 24 Hours (Table) 12/31/18 12/31/18 12/31/18 Range/Units 11:45 13:52 17:40 WBC (3.8-10.6) k/uL RBC (4.30-5.90) m/uL Hgb (13.0-17.5) gm/dL Hct (39.0-53.0) % MCHC (31.0-37.0) g/dL RDW (11.5-15.5) % Plt Count (150-450) k/uL Neutrophils # (1.3-7.7) k/uL Lymphocytes # (1.0-4.8) k/uL ABG pCO2 (35-45) mmHg ABG pO2 (83-108) mmHg ABG HCO3 (21-25) mmol/L ABG Total CO2 (19-24) mmol/L ABG O2 Saturation (94-97) % Chloride (98-107) mmol/L Carbon Dioxide (22-30) mmol/L BUN (9-20) mg/dL Creatinine (0.66-1.25) mg/dL Glucose (74-99) mg/dL POC Glucose (mg/dL) 165 H 189 H 197 H (75-99) mg/dL Calcium (8.4-10.2) mg/dL Phosphorus (2.5-4.5) mg/dL Magnesium (1.6-2.3) mg/dL 12/31/18 01/01/19 01/01/19 Range/Units 23:45 04:00 04:00 WBC 12.7 H (3.8-10.6) k/uL RBC 3.28 L (4.30-5.90) m/uL Hgb 9.6 L (13.0-17.5) gm/dL Hct 31.9 L (39.0-53.0) % MCHC 29.9 L (31.0-37.0) g/dL RDW 18.6 H (11.5-15.5) % Plt Count 104 L (150-450) k/uL Neutrophils # 11.9 H (1.3-7.7) k/uL Lymphocytes # 0.4 L (1.0-4.8) k/uL ABG pCO2 (35-45) mmHg ABG pO2 (83-108) mmHg ABG HCO3 (21-25) mmol/L ABG Total CO2 (19-24) mmol/L ABG O2 Saturation (94-97) % Chloride 108 H (98-107) mmol/L Carbon Dioxide 34 H (22-30) mmol/L BUN 26 H (9-20) mg/dL Creatinine 0.46 L (0.66-1.25) mg/dL Glucose 167 H (74-99) mg/dL POC Glucose (mg/dL) 146 H (75-99) mg/dL Calcium 8.3 L (8.4-10.2) mg/dL Phosphorus 1.9 L (2.5-4.5) mg/dL Magnesium 2.6 H (1.6-2.3) mg/dL 01/01/19 01/01/19 Range/Units 05:15 06:21 WBC (3.8-10.6) k/uL RBC (4.30-5.90) m/uL Hgb (13.0-17.5) gm/dL Hct (39.0-53.0) % MCHC (31.0-37.0) g/dL RDW (11.5-15.5) % Plt Count (150-450) k/uL Neutrophils # (1.3-7.7) k/uL Lymphocytes # (1.0-4.8) k/uL ABG pCO2 60 H (35-45) mmHg ABG pO2 67 L (83-108) mmHg ABG HCO3 34 H (21-25) mmol/L ABG Total CO2 36 H (19-24) mmol/L ABG O2 Saturation 91.8 L (94-97) % Chloride (98-107) mmol/L Carbon Dioxide (22-30) mmol/L BUN (9-20) mg/dL Creatinine (0.66-1.25) mg/dL Glucose (74-99) mg/dL POC Glucose (mg/dL) 174 H (75-99) mg/dL Calcium (8.4-10.2) mg/dL Phosphorus (2.5-4.5) mg/dL Magnesium (1.6-2.3) mg/dL Microbiology - Last 24 Hours (Table) 12/31/18 20:40 Gram Stain - Preliminary Sputum Sputum Culture - Preliminary 12/29/18 23:54 Gram Stain - Preliminary Sputum Sputum Culture - Preliminary Yeast species Assessment and Plan Assessment: (1) Acute hypoxic respiratory failure, ARDS, ventilator dependent, chemically paralyzed, secondary to aspiration pneumonia,possible chemotherapy induced injury, possible metastatic lymphangitic (2) septic shock with severe leukocytosis, pressor dependent, multi-factorial; related to multiple comorbidities Current Visit: Yes Status: Acute Code(s): J96.01 - ACUTE RESPIRATORY FAILURE WITH HYPOXIA SNOMED Code(s): 72439506 (3) Acute pneumonitis, chemotherapy induced Current Visit: Yes Status: Acute Code(s): J18.9 - PNEUMONIA, UNSPECIFIED OR GANISM SNOMED Code(s): 709519068 (3) Aspiration pneumonia,sputum culture reporting Fabi glabrata and Fabi albicans, repeat sputum culture pending Current Visit: Yes Status: Acute Code(s): J69.0 - PNEUMONITIS DUE TO INHALATION OF FOOD AND VOMIT SNOMED Code(s): 466581351 (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 Recurrent esophageal cancer recent biopsy reporting adenocarcinoma with metastasis to L3 spine and to the stomach, chemotherapy resumed Current Visit: No Status: Acute Code(s): C15.9 - MALIGNANT NEOPLASM OF ESOPHAGUS, UNSPECIFIED SNOMED Code(s): 773724711 (7) Exercise-induced asthma (8) oral candidiasis (9) anxiety (10) hyperkalemia, secondary to metabolic acidosis (11) TPN Plan: Continue current medication regime ,monitoring and symptomatic treatment. strict aspiration precautions. TPN,IV antibiotics. Continue nebulized bronchodilators, IV steroids. Continues on chemical paralysis with nimbex. Prognosis is extremely guarded at this time. Follow closely with multiple consults. Prognosis extremely guarded given multiple complex medical issues. The impression and plan of care has been dictated as directed. : I performed a history and examination of this patient, discussed the same with the dictator. I agree with the dictator's note ,documented as a scribe. Any additional findings or plans will be noted. Time taken: 35 minutes
--- NOTE | 2019-01-01 17:03 | P.PN ---
Subjective Progress Note Date: 01/01/19 On 01/01/2019 I'm seeing this patient for a follow-up. The patient remains intubated sedated and paralyzed. The patient is on Nimbex infusion. The patient is also on a propofol infusion. The patient is intubated. The patient is on a tidal volume of 380 with a rate of 78 with an FiO2 of 60% and a PEEP of 12. Morning blood gases showed a pH of 7.36 with a pCO2 of 60 and pO2 of 67. As such, I do not see any further room for weaning especially that his oxygenation is borderline at this point in time. Chest x-ray findings are stable. There is diffuse breath and pulmonary infiltrates. ET tube was seen around 1 cm above the raul and for that reason I detected to 2 by another 1 cm. There is no evidence of any air leak around the 2. The patient is synchronous with the mechanical ventilator. He was given a brief trial of paralytics during which she became somewhat asynchronous and he had a episode of desaturation. Based on this, the paralytic was restarted and the patient is back on Nimbex with a [id number]-yx-emla being 4 out of 4. The patient is on TPN for nutritional support at the rate of 70 mL an hour. Propofol is running at 70 g per KG per minute. His triglyceride levels and CPK will be checked. The patient is off levo fed for now. He is hemodynamically stable. Afebrile. He is on IV Merrem, vancomycin and Diflucan. Family is at the bedside. There've been updated on a regular basis. The net fluid balance over the past 24 hours is +3.3 L. He is going to be started on diuretics today and I gave her the first dose of Lasix 40 mg IV and I'm going to maintain on 40 mg IV push Lasix every 12 hours. Note that he is hemodynamically improved and the patient is not requiring any pressors for now. His sputum and out the 20s. Because of the negative. White blood count of 12.7. Hemoglobin is at 9.6. Renal with Function is stable with a creatinine of 0.4. Objective - Vital Signs Vital signs: Vital Signs Temp 97.5 F L 01/01/19 16:00 Pulse 99 01/01/19 16:00 Resp 17 01/01/19 16:00 BP 90/63 01/01/19 14:30 Pulse Ox 93 L 01/01/19 16:00 Intake & Output 12/31/18 01/01/19 01/01/19 18:59 06:59 18:59 Intake Total 2258.167 2841.746 1977.459 Output Total 1917 908 8703 Balance 8824.017 9636.746 -92.541 Weight 86 kg Intake: IV 1850 1430 1630 Fluconazole in NaCl,Iso- 50 Osm 100 mg In Saline 1 50ml.bag @ 50 mls/hr IVPB DAILY [facility] Rx#:[id number] Meropenem 1 gm In Sodium 300 100 200 Chloride 0.9% 100 ml @ 200 mls/hr IVPB Q8HR [facility] Rx#:[id number] Mvi, Adult No.4 with Vit 840 840 700 K 10 ml Trace (Conc-1Ml/ Dose) 1 ml Sodium Acetate 35 meq Calcium Gluconate 1 gm In Amino Acid 5%- D15w 1,000 ml @ 70 mls/hr IV .BY DURATION [facility] Rx#: [id number] Sodium Chloride 0.9% 1, 460 240 180 000 ml @ 20 mls/hr IV . Q24H [facility] Rx#:[id number] Vanco 250 250 500 Intake, IV Titration 530.865 7674.746 347.459 Amount Cisatracurium 200 mg In 52.497 75.176 94.724 Sodium Chloride 0.9% 180 ml @ 1 MCG/KG/MIN 4.758 mls/hr IV .Q24H [facility] Rx#: [id number] Mvi, Adult No.4 with Vit 1038.5 K 10 ml Trace (Conc-1Ml/ Dose) 1 ml Sodium Acetate 35 meq Calcium Gluconate 1 gm In Amino Acid 5%- D15w 1,000 ml @ 70 mls/hr IV .BY DURATION [facility] Rx#: [id number] Norepinephrine 32 mg In 60.143 Sodium Chloride 0.9% 218 ml @ 0.05 MCG/KG/MIN 1. 807 mls/hr IV .Q24H [facility] Rx#:[id number] Propofol 1,000 mg In 295.527 298.070 252.735 Empty Bag 1 bag @ Titrate IV .Q0M [facility] Rx#: [id number] Output: Gastric Drainage 200 Urine 604 686 6326 Other: Voiding Method Indwelling Catheter Indwelling Catheter Indwelling Catheter # Bowel Movements 1 ABP, PAP, CO, CI - Last Documented Arterial Blood Pressure 117/60 - Exam General: Intubated, sedated, paralyzed, calm and comfortable and symptoms with the mechanical ventilator. Orogastric and orotracheal tube are both in place. The patient also has a left IJ triple-lumen catheter and a Mediport over the anterior chest area. No evidence of any leaks around the oral tracheal tube at this point in time. Head: Normocytic, Atraumatic Neck: Supple, Neck was supple and without jugular venous distension, thyromegaly, or carotid bruits. Carotids were easily palpable bilaterally. There was no adenopathy., There is oropharyngeal candidiasis Mouth: No Lesions, No Thrush, the mucous membranes are extremely dry Eyes: Non-sclerotic No Palpable cervical, supraclavicular, axillary adenopathy Heart: Cardiac exam revealed the PMI to be normally situated and sized. The rhythm was regular and no extrasystoles were noted during several minutes of auscultation. The first and second heart sounds were normal and physiologic splitting of the second heart sound was noted. There were no murmurs, rubs, clicks, or gallops. Lungs: The patient is crackles in the mid and lower lung martínez bilaterally left base more than right. Vessels are equal and symmetrical otherwise. Abdomen: Soft, Non-Distended, Non-Tended, BSx4 Extremities: There is development of edema in the upper and lower extremity is bilaterally, there is some limited edema, pulses are equal and symmetrical in all 4 extremities without any cyanosis or clubbing. Neurological: An adequate neurologic exam cannot be done as the patient is currently sedated intubated paralyzed Psych: Unable to perform due to the above-mentioned Examination of the skin revealed no evidence of significant rashes, suspicious appearing nevi or other concerning lesions. - Labs CBC & Chem 7: 01/01/19 04:00 01/01/19 04:00 Labs: Abnormal Lab Results - Last 24 Hours (Table) 12/31/18 12/31/18 01/01/19 Range/Units 17:40 23:45 04:00 WBC (3.8-10.6) k/uL RBC (4.30-5.90) m/uL Hgb (13.0-17.5) gm/dL Hct (39.0-53.0) % MCHC (31.0-37.0) g/dL RDW (11.5-15.5) % Plt Count (150-450) k/uL Neutrophils # (1.3-7.7) k/uL Lymphocytes # (1.0-4.8) k/uL ABG pCO2 (35-45) mmHg ABG pO2 (83-108) mmHg ABG HCO3 (21-25) mmol/L ABG Total CO2 (19-24) mmol/L ABG O2 Saturation (94-97) % Chloride 108 H (98-107) mmol/L Carbon Dioxide 34 H (22-30) mmol/L BUN 26 H (9-20) mg/dL Creatinine 0.46 L (0.66-1.25) mg/dL Glucose 167 H (74-99) mg/dL POC Glucose (mg/dL) 197 H 146 H (75-99) mg/dL Calcium 8.3 L (8.4-10.2) mg/dL Phosphorus 1.9 L (2.5-4.5) mg/dL Magnesium 2.6 H (1.6-2.3) mg/dL Creatine Kinase (55-170) U/L 01/01/19 01/01/19 01/01/19 Range/Units 04:00 04:00 05:15 WBC 12.7 H (3.8-10.6) k/uL RBC 3.28 L (4.30-5.90) m/uL Hgb 9.6 L (13.0-17.5) gm/dL Hct 31.9 L (39.0-53.0) % MCHC 29.9 L (31.0-37.0) g/dL RDW 18.6 H (11.5-15.5) % Plt Count 104 L (150-450) k/uL Neutrophils # 11.9 H (1.3-7.7) k/uL Lymphocytes # 0.4 L (1.0-4.8) k/uL ABG pCO2 60 H (35-45) mmHg ABG pO2 67 L (83-108) mmHg ABG HCO3 34 H (21-25) mmol/L ABG Total CO2 36 H (19-24) mmol/L ABG O2 Saturation 91.8 L (94-97) % Chloride (98-107) mmol/L Carbon Dioxide (22-30) mmol/L BUN (9-20) mg/dL Creatinine (0.66-1.25) mg/dL Glucose (74-99) mg/dL POC Glucose (mg/dL) (75-99) mg/dL Calcium (8.4-10.2) mg/dL Phosphorus (2.5-4.5) mg/dL Magnesium (1.6-2.3) mg/dL Creatine Kinase <20 L (55-170) U/L 01/01/19 01/01/19 Range/Units 06:21 12:50 WBC (3.8-10.6) k/uL RBC (4.30-5.90) m/uL Hgb (13.0-17.5) gm/dL Hct (39.0-53.0) % MCHC (31.0-37.0) g/dL RDW (11.5-15.5) % Plt Count (150-450) k/uL Neutrophils # (1.3-7.7) k/uL Lymphocytes # (1.0-4.8) k/uL ABG pCO2 (35-45) mmHg ABG pO2 (83-108) mmHg ABG HCO3 (21-25) mmol/L ABG Total CO2 (19-24) mmol/L ABG O2 Saturation (94-97) % Chloride (98-107) mmol/L Carbon Dioxide (22-30) mmol/L BUN (9-20) mg/dL Creatinine (0.66-1.25) mg/dL Glucose (74-99) mg/dL POC Glucose (mg/dL) 174 H 157 H (75-99) mg/dL Calcium (8.4-10.2) mg/dL Phosphorus (2.5-4.5) mg/dL Magnesium (1.6-2.3) mg/dL Creatine Kinase (55-170) U/L Microbiology - Last 24 Hours (Table) 12/29/18 23:54 Gram Stain - Final Sputum Sputum Culture - Final Fabi glabrata Fabi albicans 12/31/18 20:40 Gram Stain - Preliminary Sputum Sputum Culture - Preliminary Assessment and Plan Plan: 1 acute hypoxic respiratory failure/ARDS with diffuse bilateral pulmonary infiltrates currently intubated on a mechanical ventilator. The patient presented with ongoing aspiration and subsequently developed diffuse bilateral pulmonary infiltrates and currently the patient is intubated sedated and paralyzed on a mechanical ventilator. The patient remains on low tidal volume ventilation with permissive hypercapnia. The patient remains on the same vent setting. Not a whole lot of improvement since yesterday and that has been s omewhat stability and his pulmonary status with I'm unable to wean down the FiO2 over the PEEP any further. Chest x-ray findings are stable. He is in significant positive fluid overload and the patient will be started on diuretics for now. He was given a dose of diuretics in the form of IV Lasix 40 mg artery this morning with good response. Hemodynamically stable and his off pressors for now. 2 metastatic esophageal cancer currently on FOLFOX systemic chemotherapy might the patient has local recurrence in his stomach and metastases to his lumbar spine 3 recurrent aspiration with poor tolerability of oral intake and the patient is having frequent emesis 4 patient remains nothing by mouth, unable to meet caloric requirements secondary to above, currently on TPN for nutritional support 5 leukocytosis, with a white cell count of 12 6 oropharyngeal candidiasis, currently on IV Diflucan 7 severe respiratory acidosis improved with some further adjustments in the tidal volume and the respiratory rate. Currently the patient is undergoing permissive hypercapnia. 8 acute hyperkalemia secondary to severe metabolic acidosis, potassium level is being followed up 9 generalized anxiety disorder 10 shock with profound hypotension, recovered and the patient his normalized and the patient is off pressors. Plan Condition is extremely critical. She was given a paralytic holiday which failed. The patient became hypoxic and he desaturated. Based on that, he was placed back on Nimbex infusion. Continue no propofol. Check CPK. Check triglycerides. Start Lasix 40 mg every 8 hours. Repeat gas in the morning pH chest x-ray in the morning. ET tube was pulled up by around 1 cm. No evidence of any air leak. Continue same antibiotic coverage. Continue TPN. We'll continue to follow. Condition is critical. Prognosis poor based on the above- mentioned comorbidities. We'll continue to follow. Critically care evaluation that was done more than 30 minutes. Time with Patient: Greater than 30
[2019-01-01] MEDS: FUROSEMIDE 10 MG/ML 4 ML VIAL IV SCH ×2 (17:50→23:39)
[2019-01-01 18:41] LABS: Glucose,Whole Blood 188 mg/dL (75-99)
[2019-01-01] MEDS: SODIUM CHLORIDE 0.9% 1,000 ML IV SCH (20:38)
[2019-01-01] MEDS: traZODone HCL 50 MG TAB PO SCH (20:43)
[2019-01-01 23:29] LABS: Glucose,Whole Blood 159 mg/dL (75-99)
[2019-01-02] MEDS: HYDROmorphone 1 MG/ML 1 ML SYRINGE IVP PRN ×6 (02:29→20:50)
[2019-01-02] MEDS: PROPOFOL 1,000 MG in EMPTY BAG 1 BAG IV SCH ×3 (02:31→20:35)
[2019-01-02] MEDS: IPRATROPIUM-ALBUTEROL 3 ML NEB INHALATION SCH ×6 (04:20→23:33)
[2019-01-02] MEDS: ARTIFICIAL TEARS-HYPROMELLOSE DROPS 15 ML BTL BOTH EYES SCH ×6 (04:22→23:34)
[2019-01-02 05:22] LABS: ABG Base Excess 18.7 mmol/L; ABG Oxygen Saturation 94.3 % (94-97); ABG PCO2 70 mmHg (35-45); ABG PO2 78 mmHg (83-108); ABG TCO2 46 mmol/L (19-24); Allen Test Performed? Yes
[2019-01-02 05:24] LABS: ABG HCO3 44 mmol/L (21-25)
[2019-01-02] MEDS ORDERED: VANCOMYCIN TROUGH DUE 1 EACH MISC MISCELLANE ONE (06:00)
[2019-01-02 06:21] LABS: Glucose,Whole Blood 168 mg/dL (75-99)
[2019-01-02] MEDS: INSULIN ASPART (NovoLOG) 100 UNIT/ML VIAL SQ SCH ×3 (06:27→18:20)
[2019-01-02 06:39] LABS: Anisocytosis Slight; Basophils % (A) 0 %; Eosinophils # (A) 0.1 k/uL (0-0.7); Eosinophils % (A) 0 %; HCT 34.6 % (39.0-53.0); HGB 10.6 gm/dL (13.0-17.5); Hypochromasia Marked; Lymphocytes # (A) 0.4 k/uL (1.0-4.8); Lymphocytes % (A) 3 %; MCH 29.2 pg (25.0-35.0); MCHC 30.6 g/dL (31.0-37.0); MCV 95.5 fL (80.0-100.0); Macrocytosis Slight; Mean Platelet Volume 10.4; Monocytes # (A) 0.4 k/uL (0-1.0); Monocytes % (A) 3 %; Neutrophils # (A) 13.8 k/uL (1.3-7.7); Neutrophils % (A) 94 %; Platelet Count 121 k/uL (150-450); Poikilocytosis Slight; RBC 3.63 m/uL (4.30-5.90); RDW 18.5 % (11.5-15.5); WBC 14.7 k/uL (3.8-10.6)
[2019-01-02] MEDS: NOREPINEPHRINE 32 MG in SODIUM CHLORIDE 0.9% 218 ML IV SCH (06:47)
[2019-01-02 06:52] LABS: African American GFR (CKD) >90 (>60 ml/min/1.73 sqM); Albumin 2.7 g/dL (3.5-5.0); Blood Urea Nitrogen 29 mg/dL (9-20); Calcium 8.5 mg/dL (8.4-10.2); Chloride 99 mmol/L (98-107); Glucose 158 mg/dL (74-99); Magnesium 2.4 mg/dL (1.6-2.3); Phosphorus 3.1 mg/dL (2.5-4.5); Potassium 4.2 mmol/L (3.5-5.1); Sodium 142 mmol/L (137-145)
[2019-01-02 06:59] LABS: Anion Gap 2 mmol/L
[2019-01-02 07:03] LABS: Carbon Dioxide 41 mmol/L (22-30)
[2019-01-02] MEDS: FORMOTEROL FUMARATE 20 MCG/2 ML NEBU INHALATION SCH ×2 (07:57→20:05)
[2019-01-02] MEDS: BUDESONIDE 1 MG/2 ML NEBU INHALATION SCH ×2 (07:57→20:07)
[2019-01-02] MEDS: FLUCONAZOLE IN NACL,ISO-OSM 100 MG in SALINE 1 50ML.BAG IVPB SCH (08:07)
[2019-01-02] MEDS: VANCOMYCIN 1,500 MG in SODIUM CHLORIDE 0.9% 250 ML IVPB SCH (08:07)
[2019-01-02] MEDS: MEROPENEM 1 GM in SODIUM CHLORIDE 0.9% 100 ML IVPB SCH ×3 (08:07→23:33)
[2019-01-02] MEDS: methylPREDNISolone SOD SUCCI 125 MG/2 ML VIAL IV SCH ×3 (08:08→23:33)
[2019-01-02] MEDS: PANTOPRAZOLE 40 MG/10 ML VIAL IVP SCH ×2 (08:08→20:49)
[2019-01-02] MEDS: HEPARIN SODIUM,PORCINE 5,000 UNIT/ML 1 ML VIAL SQ SCH ×3 (08:08→23:33)
[2019-01-02] MEDS: FUROSEMIDE 10 MG/ML 4 ML VIAL IV SCH ×3 (08:08→23:35)
[2019-01-02] MEDS: SENNOSIDES-DOCUSATE SODIUM 1 EACH TAB PO SCH ×2 (08:09→20:49)
--- NOTE | 2019-01-02 08:13 | XR ---
EXAMINATION TYPE: XR chest 1V portable DATE OF EXAM: 01/02/2019 COMPARISON: 01/01/2019 HISTORY: SOB, Follow Up FINDINGS: Indwelling tubes and catheters are unchanged. Reticular nodular infiltrates persist bilaterally as well as bilateral pleural effusions. Stable appearance of the cardio-mediastinal structures at this time. Pleural effusion unchanged. IMPRESSION: 1. Stable portable chest. Clinical correlation and follow up until resolution is recommended.
[2019-01-02] MEDS: CHLORHEXIDINE GLUCONATE 15 ML CUP MUCOUS MEM SCH ×2 (08:15→20:51)
[2019-01-02 12:06] LABS: Glucose,Whole Blood 152 mg/dL (75-99)
--- NOTE | 2019-01-02 12:43 | P.GSCN ---
History of Present Illness Consult date: 01/02/19 Reason for Consult: Respiratory failure History of present illness: Patient somewhat known to my service. I'm familiar with the patient's history from the patient's who is a patient of mine. He was admitted with respiratory failure. Etiology thought to represent aspiration pneumonia with subsequent ARDS. We're consulted for tracheostomy placement. Patient currently on 60% FiO2 with a PEEP of 12. Some air leak from the endotracheal tube currently. Review of Systems ROS unobtainable: due to endotracheal tube Past Medical History Past Medical History: Asthma, Cancer, GERD/Reflux Additional Past Medical History / Comment(s): EXCERCISE INDUCED ASTHMA (no current meds), ESOPHAGEAL & STOMACH CANCER (DIAGNOSED 07/2016, RECEIVED CHEMO & RADIATION - SEP TO OCTOBER 2016)., STOMACH PAIN. , PTS STATES NEW DIAGNOSIS OF STOMACH CANCER AND CANCER IN THE SPINE., SPITS UP SALIVA. History of Any Multi-Drug Resistant Organisms: None Reported Additional Past Surgical History / Comment(s): MULT SX FOR CLEFT LIP, LASIK , BONE GRAFT TAKEN FROM HIP TO HIS JAW (14YRS OLD), 1/4 OF STOMACH REMOVED AND ESOPHAGUS SURGERY FOR CANCER-(DECEMBER 2016 [facility]), EGD (06/27/18) Past Anesthesia/Blood Transfusion Reactions: Motion Sickness, Postoperative Nausea & Vomiting (PONV) Past Psychological History: Anxiety, Depression Smoking Status: Never smoker Past Alcohol Use History: Occasional Past Drug Use History: Marijuana Additional Drug Use History / Comment(s): uses marinol and RSO - Past Family History Mother Family Medical History: No Reported History Medications and Allergies Home Medications Medication Instructions Recorded Confirmed Type traZODone HCL 150 mg PO HS 06/24/18 12/24/18 History Famotidine [Pepcid AC] 10 mg PO BID 07/09/18 12/24/18 History Esomeprazole Magnesium [NexIUM] 40 mg PO BID 12/24/18 12/24/18 History HYDROmorphone [Dilaudid] 2 mg PO TID 12/24/18 12/24/18 History LORazepam [Ativan] 0.5 mg PO TID 12/24/18 12/24/18 History Ondansetron Odt [Zofran ODT] 4 mg SL Q6HR 12/24/18 12/24/18 History Prochlorperazine [Compazine] 10 mg PO Q6H 12/24/18 12/24/18 History fentaNYL 75MCG/HR PATCH [Duragesic 75 mcg PO Q72H 12/24/18 12/24/18 History 75MCG/HR] Allergies Allergy/AdvReac Type Severity Reaction Status Date / Time hydrocodone [From [place]] Allergy Nausea & Verified 12/24/18 10:23 Vomiting metoclopramide [From [place]] Allergy body Verified 12/24/18 10:23 jerks, suicidal thoughts Surgical - Exam Vital Signs Temp Pulse Resp BP Pulse Ox 103.1 F H 78 18 93/54 98 12/24/18 09:13 12/24/18 09:13 12/24/18 09:13 12/24/18 09:13 12/24/18 09:13 Physical exam: General: Well-developed, well-nourished HEENT: Normocephalic, sclerae nonicteric Abdomen: Nontender, nondistended, previous laparoscopic scars Extremities: No edema Neuro: Alert and oriented Results - Labs 01/02/19 06:30 01/02/19 06:30 Abnormal Lab Results - Last 24 Hours (Table) 01/01/19 01/01/19 01/01/19 Range/Units 12:50 18:39 23:26 WBC (3.8-10.6) k/uL RBC (4.30-5.90) m/uL Hgb (13.0-17.5) gm/dL Hct (39.0-53.0) % MCHC (31.0-37.0) g/dL RDW (11.5-15.5) % Plt Count (150-450) k/uL Neutrophils # (1.3-7.7) k/uL Lymphocytes # (1.0-4.8) k/uL ABG pCO2 (35-45) mmHg ABG pO2 (83-108) mmHg ABG HCO3 (21-25) mmol/L ABG Total CO2 (19-24) mmol/L Carbon Dioxide (22-30) mmol/L BUN (9-20) mg/dL Creatinine (0.66-1.25) mg/dL Glucose (74-99) mg/dL POC Glucose (mg/dL) 157 H 188 H 159 H (75-99) mg/dL Magnesium (1.6-2.3) mg/dL Albumin (3.5-5.0) g/dL 01/02/19 01/02/19 01/02/19 Range/Units 05:18 06:18 06:30 WBC (3.8-10.6) k/uL RBC (4.30-5.90) m/uL Hgb (13.0-17.5) gm/dL Hct (39.0-53.0) % MCHC (31.0-37.0) g/dL RDW (11.5-15.5) % Plt Count (150-450) k/uL Neutrophils # (1.3-7.7) k/uL Lymphocytes # (1.0-4.8) k/uL ABG pCO2 70 H (35-45) mmHg ABG pO2 78 L (83-108) mmHg ABG HCO3 44 H* (21-25) mmol/L ABG Total CO2 46 H (19-24) mmol/L Carbon Dioxide 41 H* (22-30) mmol/L BUN 29 H (9-20) mg/dL Creatinine 0.47 L (0.66-1.25) mg/dL Glucose 158 H (74-99) mg/dL POC Glucose (mg/dL) 168 H (75-99) mg/dL Magnesium 2.4 H (1.6-2.3) mg/dL Albumin 2.7 L (3.5-5.0) g/dL 01/02/19 01/02/19 Range/Units 06:30 12:01 WBC 14.7 H (3.8-10.6) k/uL RBC 3.63 L (4.30-5.90) m/uL Hgb 10.6 L (13.0-17.5) gm/dL Hct 34.6 L (39.0-53.0) % MCHC 30.6 L (31.0-37.0) g/dL RDW 18.5 H (11.5-15.5) % Plt Count 121 L (150-450) k/uL Neutrophils # 13.8 H (1.3-7.7) k/uL Lymphocytes # 0.4 L (1.0-4.8) k/uL ABG pCO2 (35-45) mmHg ABG pO2 (83-108) mmHg ABG HCO3 (21-25) mmol/L ABG Total CO2 (19-24) mmol/L Carbon Dioxide (22-30) mmol/L BUN (9-20) mg/dL Creatinine (0.66-1.25) mg/dL Glucose (74-99) mg/dL POC Glucose (mg/dL) 152 H (75-99) mg/dL Magnesium (1.6-2.3) mg/dL Albumin (3.5-5.0) g/dL Microbiology - Last 24 Hours (Table) 12/31/18 20:40 Gram Stain - Preliminary Sputum Sputum Culture - Preliminary Fabi albicans Yeast species 12/29/18 23:54 Gram Stain - Final Sputum Sputum Culture - Final Fabi glabrata Fabi albicans Diabetes panel 01/02/19 Range/Units 06:30 Sodium 142 (137-145) mmol/L Potassium 4.2 (3.5-5.1) mmol/L Chloride 99 (98-107) mmol/L Carbon Dioxide 41 H* (22-30) mmol/L BUN 29 H (9-20) mg/dL Creatinine 0.47 L (0.66-1.25) mg/dL Glucose 158 H (74-99) mg/dL Calcium 8.5 (8.4-10.2) mg/dL Albumin 2.7 L (3.5-5.0) g/dL Calcium panel 01/02/19 Range/Units 06:30 Calcium 8.5 (8.4-10.2) mg/dL Phosphorus 3.1 (2.5-4.5) mg/dL Albumin 2.7 L (3.5-5.0) g/dL Pituitary panel 01/02/19 Range/Units 06:30 Sodium 142 (137-145) mmol/L Potassium 4.2 (3.5-5.1) mmol/L Chloride 99 (98-107) mmol/L Carbon Dioxide 41 H* (22-30) mmol/L BUN 29 H (9-20) mg/dL Creatinine 0.47 L (0.66-1.25) mg/dL Glucose 158 H (74-99) mg/dL Calcium 8.5 (8.4-10.2) mg/dL Adrenal panel 01/02/19 Range/Units 06:30 Sodium 142 (137-145) mmol/L Potassium 4.2 (3.5-5.1) mmol/L Chloride 99 (98-107) mmol/L Carbon Dioxide 41 H* (22-30) mmol/L BUN 29 H (9-20) mg/dL Creatinine 0.47 L (0.66-1.25) mg/dL Glucose 158 H (74-99) mg/dL Calcium 8.5 (8.4-10.2) mg/dL Albumin 2.7 L (3.5-5.0) g/dL Assessment and Plan (1) Acute respiratory failure with hypoxia Narrative/Plan: 48-year-old male with ARDS related to aspiration pneumonia. Patient with history of recurrent esophageal cancer. We'll plan tracheostomy. Final decision on timing of the procedure will be based on discussions between anesthesia and pulmonary. We may decide to hold off until the patient's respiratory status improved slightly. Risks of bleeding, infection, malposition, pneumothorax, tracheal injury, and . The patient's understands and wishes to proceed. Current Visit: Yes Status: Acute Priority: High Code(s): J96.01 - ACUTE RESPIRATORY FAILURE WITH HYPOXIA SNOMED Code(s): 69792219
--- NOTE | 2019-01-02 13:27 | P.PN ---
Subjective Progress Note Date: 01/02/19 This is a 48-year-old gentleman with history of esophageal cancer, completed radiation and chemotherapy, history of gastric pull-through, recent biopsy reporting adenocarcinoma with chemotherapy resumed. T-max on admission 100.3, WBC 14.6, neutrophils normal, hemoglobin ,platelets, electrolytes essentially normal.Currently T-max 100.2, WBC improving, down to 12.4.. Maintained on IV fluid hydration of D5.45 MLS per hour, cefepime, vancomycin. Speech consulted to evaluate for silent aspiration(prior history of PEG tube which has been discontinued). Chest x-ray reported new multifocal airspace disease possible multifocal pneumonia versus pulmonary edema. F/U chest x-ray this morning with no significant change. On admission patient had been satting high 90s on room air. During the afternoon patient sats decreased to 93-94%. Last night, patient desatted to 70s to 80s %, A teamed called, received a dose of Lasix 40 IV push and placed on BiPAP. BiPAP weaned off currently on 15 L high flow nasal cannula this morning, maintaining O2 sats of 93%. No further nausea vomiting or diarrhea. Tolerating clear liquid diet. 12/26/2018 Tested negative for influenza, CT negative for PE, received a couple doses of Lasix for potential pulmonary edema, Swallow evaluation per speech therapy with no aspiration observed, universal aspiration precautions recommended..During the night, patient desatted, did not respond to BiPAP, transferred to ICU and placed on Airvo. Maintaining O2 sats of low 90s on 80% airvo. Maintained on IV antibiotics of vancomycin, Maxipime as per infectious disease. T-max 100.4,WBC WNL. Preliminary blood cultures negative at 24 hours .Continues on nebulized bronchodilators. Feels better this morning. 12/27/2018: She remains on high flow nasal cannula oxygen. Pulse ox is 92%. He remains on IV vancomycin plus Maxipime for antibiotic coverage. Solu-Medrol was started yesterday and seems to help. He remains nothing by mouth for suspected chronic aspiration. His is at bedside. Chest x-ray today shows worsening interstitial airspace disease. Clinically he feels better. Staff report he is doing better. 12/28/2018: Patient's chest x-ray shortness of breath continue worsen. He is unable to move significantly not descending. He remains on Airvo. His remains at bedside. I discussed this case with Dr. Wade, he is considering bronchoscopy, but fears that he would end up being intubated and unable to ween.Exact cause of his symptoms are unknown without multifactorial due to aspiration pneumonia, chemical pneumonitis due to chemotherapy, and other factors. 12/29/2018 Maintained on vancomycin and cefepime as per ID. Remains airvo de pendent, maintaining O2 sats of 95% on 60%. chest x-ray reporting stable bilateral pneumonia, ARDS, or pulmonary edema; diffuse increase in opacification to the right lung. Recurrent emesis , aspiration risks changed to NPO, TPN ordered. Blood sugars controlled. Oral thrush, Diflucan initiated. T-max 99.9, WBC down to 15.1. 12/30/2018 respiratory status continued to deteriorate yesterday and patient required intubation yesterday afternoon. Chest x-ray reporting slight improvement in diffuse pulmonary edema, persistent interstitial opacity's bilaterally right more than left, bibasilar atelectasis. ABGs reflected severe respiratory acidosis this morning. FiO2 has been weaned down to 70%, PEEP has been weaned down to 14. Mild sinus tachycardia. Currently on pressor support of Levophed 40 mcgs, and on chemical paralysis with Nimbex. Right pupil fixed and dilated, unstable at this time for transfer to CT. potassium elevated at 6.2 received sodium bicarb D50, insulin, down to 5.8. Afebrile, White count up to 52, on Merrem ,Vancomycin and Diflucan. Repeat cultures sent. Maintained on TPN. Continues on nebulized bronchodilators, IV steroids 12/31/18 Maintained on Nimbex drip, ABGs improved with FiO2 decreased to 50% and PEEP down to 12%,cuff leak resolved with ETT repositioned.Levophed weaned down to 2 mcgs. Maintained on TPN. Continues on nebulized bronchodilators, IV s teroids. Aggressive fluid resuscitation decreased, positive fluid balance with extremity edema .Afebrile,cultures negative. 01/01/2019 sputum culture report and Fabi glabrata and Fabi albicans, repeat sputum culture pending. Maintained on IV antibiotics of vancomycin and Merrem.afebrile,WBC decreased to 12.7.Attempted Nimbex weaning, not tolerated, peak pressure reading, and oxygenating, desatted into the 80s.Nimbex resumed. patient was maintaining O2 sats in the high 80s, ABGs noted, including PO2 of 67. Vent changes: Rate decreased, FiO2 increased to 60%,complete maintained and 12. chest x-ray reporting mild improvement of bibasilar infiltrates. IV fluids decreased yesterday,continues on 0.9 at KVO, as well as TPN.24 hour I&O reflecting a negative fluid balance.Positive bowel movement this morning. 01/02/2019 Remains vent dependent on FiO2 of 60%/+12 Peep. Maintained on Nimbex and Diprovan. Dr. Padilla consulted regarding tracheostomy. Telemetry sinus rhythm to sinus tach. Objective - Vital Signs Vital signs: Vital Signs Temp 97.8 F 01/02/19 08:00 Pulse 96 01/02/19 08:38 Resp 34 H 01/02/19 08:30 BP 90/63 01/02/19 00:30 Pulse Ox 95 01/02/19 08:30 Intake & Output 01/01/19 01/02/19 01/02/19 18:59 06:59 18:59 Intake Total 2257.459 1781.585 580 Output Total 2480 2535 475 Balance -222.541 -753.415 105 Weight 83.9 kg Intake: IV 1810 1340 580 Fluconazole in NaCl,Iso- 50 50 Osm 100 mg In Saline 1 50ml.bag @ 50 mls/hr IVPB DAILY [facility] Rx#:[id number] Meropenem 1 gm In Sodium 200 100 100 Chloride 0.9% 100 ml @ 200 mls/hr IVPB Q8HR [facility] Rx#:[id number] Mvi, Adult No.4 with Vit 840 910 140 K 10 ml Trace (Conc-1Ml/ Dose) 1 ml Sodium Acetate 35 meq Calcium Gluconate 1 gm In Amino Acid 5%- D15w 1,000 ml @ 70 mls/hr IV .BY DURATION [facility] Rx#: [id number] Sodium Chloride 0.9% 1, 220 80 40 000 ml @ 20 mls/hr IV . Q24H [facility] Rx#:[id number] Vanco 500 250 250 Intake, IV Titration 447.459 381.585 Amount Cisatracurium 200 mg In 94.724 87.071 Sodium Chloride 0.9% 180 ml @ 1 MCG/KG/MIN 4.758 mls/hr IV .Q24H [facility] Rx#: [id number] Propofol 1,000 mg In 352.735 294.514 Empty Bag 1 bag @ Titrate IV .Q0M [facility] Rx#: [id number] Oral 60 Output: Urine 2480 8755 475 Other: Voiding Method Indwelling Catheter Indwelling Catheter ABP, PAP, CO, CI - Last Documented Arterial Blood Pressure 133/65 - Exam VITAL SIGNS: As above GENERAL: Lying in bed, calm, intubated, sedated and chemically paralyzed HEENT: Conjunctivae normal. Pupils equal, OG present, oral mucosa dry NECK: Supple, No JVD,No LNs CARDIOVASCULAR: S1, S2 regular. Mild tachycardia, No murmur, no rub, no gallop RESPIRATION: Breath sounds diminished with improving bibasilar crackles, greater in the left ABDOMEN: Soft, nondistended, nontender. no masses palpable. Bowel sounds heard. EXTREMITIES: positive edema. no cyanosis, no clubbing. Mild anasarca NERVOUS SYSTEM: Unable to evaluate at this time, as patient intubated sedated and paralyzed Microbiology 12/29/18 23:54 Sputum Gram Stain - Final 12/29/18 23:54 Sputum Sputum Culture - Final Fabi glabrata Fabi albicans 12/31/18 20:40 Sputum Gram Stain - Preliminary 12/31/18 20:40 Sputum Sputum Culture - Preliminary 12/24/18 11:30 Blood Blood Culture - Final No Growth after 144 hours 12/24/18 09:40 Blood Blood Culture - Final No Growth after 144 hours 12/26/18 03:35 Sputum Gram Stain - Final 12/26/18 03:35 Sputum Sputum Culture - Final - Labs CBC & Chem 7: 01/02/19 06:30 01/02/19 06:30 Labs: Abnormal Lab Results - Last 24 Hours (Table) 01/01/19 01/01/19 01/01/19 Range/Units 04:00 12:50 18:39 WBC (3.8-10.6) k/uL RBC (4.30-5.90) m/uL Hgb (13.0-17.5) gm/dL Hct (39.0-53.0) % MCHC (31.0-37.0) g/dL RDW (11.5-15.5) % Plt Count (150-450) k/uL Neutrophils # (1.3-7.7) k/uL Lymphocytes # (1.0-4.8) k/uL ABG pCO2 (35-45) mmHg ABG pO2 (83-108) mmHg ABG HCO3 (21-25) mmol/L ABG Total CO2 (19-24) mmol/L Carbon Dioxide (22-30) mmol/L BUN (9-20) mg/dL Creatinine (0.66-1.25) mg/dL Glucose (74-99) mg/dL POC Glucose (mg/dL) 157 H 188 H (75-99) mg/dL Magnesium (1.6-2.3) mg/dL Creatine Kinase <20 L (55-170) U/L Albumin (3.5-5.0) g/dL 01/01/19 01/02/19 01/02/19 Range/Units 23:26 05:18 06:18 WBC (3.8-10.6) k/uL RBC (4.30-5.90) m/uL Hgb (13.0-17.5) gm/dL Hct (39.0-53.0) % MCHC (31.0-37.0) g/dL RDW (11.5-15.5) % Plt Count (150-450) k/uL Neutrophils # (1.3-7.7) k/uL Lymphocytes # (1.0-4.8) k/uL ABG pCO2 70 H (35-45) mmHg ABG pO2 78 L (83-108) mmHg ABG HCO3 44 H* (21-25) mmol/L ABG Total CO2 46 H (19-24) mmol/L Carbon Dioxide (22-30) mmol/L BUN (9-20) mg/dL Creatinine (0.66-1.25) mg/dL Glucose (74-99) mg/dL POC Glucose (mg/dL) 159 H 168 H (75-99) mg/dL Magnesium (1.6-2.3) mg/dL Creatine Kinase (55-170) U/L Albumin (3.5-5.0) g/dL 01/02/19 01/02/19 Range/Units 06:30 06:30 WBC 14.7 H (3.8-10.6) k/uL RBC 3.63 L (4.30-5.90) m/uL Hgb 10.6 L (13.0-17.5) gm/dL Hct 34.6 L (39.0-53.0) % MCHC 30.6 L (31.0-37.0) g/dL RDW 18.5 H (11.5-15.5) % Plt Count 121 L (150-450) k/uL Neutrophils # 13.8 H (1.3-7.7) k/uL Lymphocytes # 0.4 L (1.0-4.8) k/uL ABG pCO2 (35-45) mmHg ABG pO2 (83-108) mmHg ABG HCO3 (21-25) mmol/L ABG Total CO2 (19-24) mmol/L Carbon Dioxide 41 H* (22-30) mmol/L BUN 29 H (9-20) mg/dL Creatinine 0.47 L (0.66-1.25) mg/dL Glucose 158 H (74-99) mg/dL POC Glucose (mg/dL) (75-99) mg/dL Magnesium 2.4 H (1.6-2.3) mg/dL Creatine Kinase (55-170) U/L Albumin 2.7 L (3.5-5.0) g/dL Microbiology - Last 24 Hours (Table) 12/29/18 23:54 Gram Stain - Final Sputum Sputum Culture - Final Fabi glabrata Fabi albicans Assessment and Plan Assessment: (1) Acute hypoxic respiratory failure, ventilator dependent, chemically paralyzed, secondary to aspiration pneumonia, acute pneumonitis with ARDS, possible chemotherapy induced injury, possible metastatic lymphangitic (2) septic shock with severe leukocytosis, pressor dependent, multi-factorial; related to multiple comorbidities Current Visit: Yes Status: Acute Code(s): J96.01 - ACUTE RESPIRATORY FAILURE WITH HYPOXIA SNOMED Code(s): 21109630 (3) Acute pneumonitis with ARDS, possibly chemotherapy induced Current Visit: Yes Status: Acute Code(s): J18.9 - PNEUMONIA, UNSPECIFIED ORGANISM SNOMED Code(s): 984391885 (3) Aspiration pneumonia,sputum culture reporting Fabi glabrata and Fabi albicans, repeat sputum culture pending Current Visit: Yes Status: Acute Code(s): J69.0 - PNEUMONITIS DUE TO INHALATION OF FOOD AND VOMIT SNOMED Code(s): 368155209 (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 Recurrent esophageal cancer recent biopsy reporting adenocarcinoma with metastasis to L3 spine and to the stomach, chemotherapy resumed Current Visit: No Status: Acute Code(s): C15.9 - MALIGNANT NEOPLASM OF ESOPHAGUS, UNSPECIFIED SNOMED Code(s): 227656793 (7) Exercise-induced asthma (8) oral candidiasis (9) anxiety (10) hyperkalemia, secondary to metabolic acidosis (11) chronic recurrent aspiration , on TPN (12) leukocytosis (13) oral candidasis Plan: Continue current medication regime ,monitoring and symptomatic treatment. strict aspiration precautions. Tracheostomy pending. Maintain IV antibiotics,nebulized bronchodilators, IV steroids and IV diuretics. Continues on chemical paralysis with nimbex. at bedside, updated, questions addressed, support given. Follow closely with multiple consults. Prognosis extremely guarded given multiple complex medical issues. The impression and plan of care has been dictated as directed. : I performed a history and examination of this patient, discussed the same with the dictator. I agree with the dictator's note ,documented as a scribe. Any additional findings or plans will be noted. Time taken: 35 minutes
--- NOTE | 2019-01-02 13:59 | P.PN ---
Subjective Progress Note Date: 01/02/19 On 01/02/2019, the patient remains intubated in the mechanical ventilator and he remains sedated and paralyzed. No major improvement or change since yesterday. He remains on a low tidal volume ventilation with a tidal volume of 380 and FiO2 of percent with a PEEP of 12 and the rate of 34. Blood gases showed a pH of 7.4 with a pCO2 of 70 and pO2 of 78. Chest x-ray findings are essentially unchanged . Airway Pressures remain unchanged. The patient was started on diuretics. He is on IV Lasix 40 mg every 12 hours. Is producing good urine output and he is in a negative fluid balance. He has already achieved a liter of negativity since yesterday. I'm hoping that we will going to achieve a more negative fluid balance over the next 24 hours. He is not on any pressors. He is hemodynamically stable. He is afebrile. Remains on the same antibiotic coverage. He is on a combination of Merrem, vancomycin and Diflucan. He remains on propofol. He remains on Nimbex drip. He is receiving TPN for nutritional support. Cardiac rhythm is sinus. We are contemplating a tracheostomy tube insertion and for that reason a surgical consultation was placed. Discussed this with the family and they seem to be quite agreeable regarding this procedure. Objective - Vital Signs Vital signs: Vital Signs Temp 36.6 F L 01/02/19 12:00 Pulse 100 01/02/19 12:00 Resp 34 H 01/02/19 12:00 BP 90/63 01/02/19 00:30 Pulse Ox 94 L 01/02/19 12:00 Intake & Output 01/01/19 01/02/19 01/02/19 18:59 06:59 18:59 Intake Total 2257.459 1781.585 836.842 Output Total 2480 7515 1175 Balance -222.541 -753.415 -338.158 Weight 83.9 kg 83.9 kg Intake: IV 1810 1340 760 Fluconazole in NaCl,Iso- 50 50 Osm 100 mg In Saline 1 50ml.bag @ 50 mls/hr IVPB DAILY [facility] Rx#:[id number] Meropenem 1 gm In Sodium 200 100 100 Chloride 0.9% 100 ml @ 200 mls/hr IVPB Q8HR [facility] Rx#:[id number] Mvi, Adult No.4 with Vit 840 910 280 K 10 ml Trace (Conc-1Ml/ Dose) 1 ml Sodium Acetate 35 meq Calcium Gluconate 1 gm In Amino Acid 5%- D15w 1,000 ml @ 70 mls/hr IV .BY DURATION [facility] Rx#: [id number] Sodium Chloride 0.9% 1, 220 80 80 000 ml @ 20 mls/hr IV . Q24H [facility] Rx#:[id number] Vanco 500 250 250 Intake, IV Titration 447.459 381.585 76.842 Amount Cisatracurium 200 mg In 94.724 87.071 76.842 Sodium Chloride 0.9% 180 ml @ 1 MCG/KG/MIN 4.758 mls/hr IV .Q24H [facility] Rx#: [id number] Propofol 1,000 mg In 352.735 294.514 Empty Bag 1 bag @ Titrate IV .Q0M [facility] Rx#: [id number] Oral 60 Output: Urine 2480 2535 1175 Other: Voiding Method Indwelling Catheter Indwelling Catheter Indwelling Catheter ABP, PAP, CO, CI - Last Documented Arterial Blood Pressure 169/82 - Exam General: Intubated, sedated, paralyzed, calm and comfortable and symptoms with the mechanical ventilator. Orogastric and orotracheal tube are both in place. The patient also has a left IJ triple-lumen catheter and a Mediport over the anterior chest area. No evidence of any leaks around the oral tracheal tube at this point in time. Head: Normocytic, Atraumatic Neck: Supple, Neck was supple and without jugular venous distension, thyromegaly, or carotid bruits. Carotids were easily palpable bilaterally. There was no adenopathy., There is oropharyngeal candidiasis Mouth: No Lesions, No Thrush, the mucous membranes are extremely dry Eyes: Non-sclerotic No Palpable cervical, supraclavicular, axillary adenopathy Heart: Cardiac exam revealed the PMI to be normally situated and sized. The rhythm was regular and no extrasystoles were noted during several minutes of auscultation. The first and second heart sounds were normal and physiologic splitting of the second heart sound was noted. There were no murmurs, rubs, clicks, or gallops. Lungs: The patient is crackles in the mid and lower lung martínez bilaterally left base more than right. Vessels are equal and symmetrical otherwise. Abdomen: Soft, Non-Distended, Non-Tended, BSx4 Extremities: There is development of edema in the upper and lower extremity is bilaterally, there is some limited edema, pulses are equal and symmetrical in all 4 extremities without any cyanosis or clubbing. Neurological: An adequate neurologic exam cannot be done as the patient is currently sedated intubated paralyzed Psych: Unable to perform due to the above-mentioned Examination of the skin revealed no evidence of significant rashes, suspicious appearing nevi or other concerning lesions. - Labs CBC & Chem 7: 01/02/19 06:30 01/02/19 06:30 Labs: Abnormal Lab Results - Last 24 Hours (Table) 01/01/19 01/01/19 01/02/19 Range/Units 18:39 23:26 05:18 WBC (3.8-10.6) k/uL RBC (4.30-5.90) m/uL Hgb (13.0-17.5) gm/dL Hct (39.0-53.0) % MCHC (31.0-37.0) g/dL RDW (11.5-15.5) % Plt Count (150-450) k/uL Neutrophils # (1.3-7.7) k/uL Lymphocytes # (1.0-4.8) k/uL ABG pCO2 70 H (35-45) mmHg ABG pO2 78 L (83-108) mmHg ABG HCO3 44 H* (21-25) mmol/L ABG Total CO2 46 H (19-24) mmol/L Carbon Dioxide (22-30) mmol/L BUN (9-20) mg/dL Creatinine (0.66-1.25) mg/dL Glucose (74-99) mg/dL POC Glucose (mg/dL) 188 H 159 H (75-99) mg/dL Magnesium (1.6-2.3) mg/dL Albumin (3.5-5.0) g/dL 01/02/19 01/02/19 01/02/19 Range/Units 06:18 06:30 06:30 WBC 14.7 H (3.8-10.6) k/uL RBC 3.63 L (4.30-5.90) m/uL Hgb 10.6 L (13.0-17.5) gm/dL Hct 34.6 L (39.0-53.0) % MCHC 30.6 L (31.0-37.0) g/dL RDW 18.5 H (11.5-15.5) % Plt Count 121 L (150-450) k/uL Neutrophils # 13.8 H (1.3-7.7) k/uL Lymphocytes # 0.4 L (1.0-4.8) k/uL ABG pCO2 (35-45) mmHg ABG pO2 (83-108) mmHg ABG HCO3 (21-25) mmol/L ABG Total CO2 (19-24) mmol/L Carbon Dioxide 41 H* (22-30) mmol/L BUN 29 H (9-20) mg/dL Creatinine 0.47 L (0.66-1.25) mg/dL Glucose 158 H (74-99) mg/dL POC Glucose (mg/dL) 168 H (75-99) mg/dL Magnesium 2.4 H (1.6-2.3) mg/dL Albumin 2.7 L (3.5-5.0) g/dL 01/02/19 Range/Units 12:01 WBC (3.8-10.6) k/uL RBC (4.30-5.90) m/uL Hgb (13.0-17.5) gm/dL Hct (39.0-53.0) % MCHC (31.0-37.0) g/dL RDW (11.5-15.5) % Plt Count (150-450) k/uL Neutrophils # (1.3-7.7) k/uL Lymphocytes # (1.0-4.8) k/uL ABG pCO2 (35-45) mmHg ABG pO2 (83-108) mmHg ABG HCO3 (21-25) mmol/L ABG Total CO2 (19-24) mmol/L Carbon Dioxide (22-30) mmol/L BUN (9-20) mg/dL Creatinine (0.66-1.25) mg/dL Glucose (74-99) mg/dL POC Glucose (mg/dL) 152 H (75-99) mg/dL Magnesium (1.6-2.3) mg/dL Albumin (3.5-5.0) g/dL Microbiology - Last 24 Hours (Table) 12/31/18 20:40 Gram Stain - Preliminary Sputum Sputum Culture - Preliminary Fabi albicans Yeast species 12/29/18 23:54 Gram Stain - Final Sputum Sputum Culture - Final Fabi glabrata Fabi albicans Assessment and Plan Plan: 1 acute hypoxic respiratory failure/ARDS with diffuse bilateral pulmonary infiltrates currently intubated on a mechanical ventilator. The patient prese nted with ongoing aspiration and subsequently developed diffuse bilateral pulmonary infiltrates and currently the patient is intubated sedated and paralyzed on a mechanical ventilator. The patient remains on low tidal volume ventilation with permissive hypercapnia. No significant changes condition compared to yesterday. The patient remains borderline oxygenation while being on an FiO2 of 60 with a PEEP of 12. Remains sedated and paralyzed. Contemplating tracheostomy tube insertion and surgical consultation will be obtained. Chest x-ray findings are stable. Remains on low tidal volume ve ntilation. Remains on systemic steroids. 2 metastatic esophageal cancer currently on FOLFOX systemic chemotherapy might the patient has local recurrence in his stomach and metastases to his lumbar s pine 3 recurrent aspiration with poor tolerability of oral intake and the patient is having frequent emesis 4 patient remains nothing by mouth, unable to meet caloric requirements secondary to above, currently on TPN for nutritional support 5 leukocytosis,, improved 6 oropharyngeal candidiasis, currently on IV Diflucan 7 severe respiratory acidosis improved with some further adjustments in the tidal volume and the respiratory rate. Currently the patient is undergoing permissive hypercapnia. 8 acute hyperkalemia secondary to severe metabolic acidosis, potassium level is being followed up 9 generalized anxiety disorder 10 shock with profound hypotension, recovered rs. Plan Condition is extremely critical. We'll give the patient paralytic holiday. Keep sedation. Surgical consultation for a to consider insertion. Continue TPN. Continue vent support. Continue same antibiotic coverage. Continue diuretics. We'll continue to follow. Prognosis poor based above-mentioned co morbidities. Evaluation was done and more than 30 minutes including discussion with the family, oncology, general surgery and anesthesia. Time with Patient: Greater than 30
[2019-01-02] MEDS: VANCOMYCIN 1,250 MG in SODIUM CHLORIDE 0.9% 250 ML IVPB SCH ×2 (15:04→23:33)
--- NOTE | 2019-01-02 15:57 | P.PN ---
Subjective Progress Note Date: 01/02/19 The patient remains sedated on the vent. He continues to require high PEEP, and is currently on FiO2 of 60%. No obvious bleeding, fevers or chills. Objective - Vital Signs Vital signs: Vital Signs Temp 36.6 F L 01/02/19 12:00 Pulse 95 01/02/19 15:29 Resp 34 H 01/02/19 12:00 BP 90/63 01/02/19 00:30 Pulse Ox 94 L 01/02/19 12:00 Intake & Output 01/01/19 01/02/19 01/02/19 18:59 06:59 18:59 Intake Total 2257.459 1781.585 836.842 Output Total 2480 2535 1175 Balance -222.541 -753.415 -338.158 Weight 83.9 kg 83.9 kg Intake: IV 1810 1340 760 Fluconazole in NaCl,Iso- 50 50 Osm 100 mg In Saline 1 50ml.bag @ 50 mls/hr IVPB DAILY [facility] Rx#:[id number] Meropenem 1 gm In Sodium 200 100 100 Chloride 0.9% 100 ml @ 200 mls/hr IVPB Q8HR [facility] Rx#:[id number] Mvi, Adult No.4 with Vit 840 910 280 K 10 ml Trace (Conc-1Ml/ Dose) 1 ml Sodium Acetate 35 meq Calcium Gluconate 1 gm In Amino Acid 5%- D15w 1,000 ml @ 70 mls/hr IV .BY DURATION [facility] Rx#: [id number] Sodium Chloride 0.9% 1, 220 80 80 000 ml @ 20 mls/hr IV . Q24H [facility] Rx#:[id number] Vanco 500 250 250 Intake, IV Titration 447.459 381.585 76.842 Amount Cisatracurium 200 mg In 94.724 87.071 76.842 Sodium Chloride 0.9% 180 ml @ 1 MCG/KG/MIN 4.758 mls/hr IV .Q24H [facility] Rx#: [id number] Propofol 1,000 mg In 352.735 294.514 Empty Bag 1 bag @ Titrate IV .Q0M [facility] Rx#: [id number] Oral 60 Output: Urine 2480 2535 1175 Other: Voiding Method Indwelling Catheter Indwelling Catheter Indwelling Catheter ABP, PAP, CO, CI - Last Documented Arterial Blood Pressure 169/82 - Constitutional General appearance: Present: no acute distress - Respiratory Respiratory: bilateral: rales - Cardiovascular Rhythm: regular Heart sounds: normal: S1, S2 - Gastrointestinal General gastrointestinal: Present: normal bowel sounds, soft - Integumentary Integumentary: Present: normal - Musculoskeletal Musculoskeletal: Present: generalized weakness - Psychiatric Psychiatric Comment(s): Sedated, on ventilator - Labs CBC & Chem 7: 01/02/19 06:30 01/02/19 06:30 Labs: Abnormal Lab Results - Last 24 Hours (Table) 01/01/19 01/01/19 01/02/19 Range/Units 18:39 23:26 05:18 WBC (3.8-10.6) k/uL RBC (4.30-5.90) m/uL Hgb (13.0-17.5) gm/dL Hct (39.0-53.0) % MCHC (31.0-37.0) g/dL RDW (11.5-15.5) % Plt Count (150-450) k/uL Neutrophils # (1.3-7.7) k/uL Lymphocytes # (1.0-4.8) k/uL ABG pCO2 70 H (35-45) mmHg ABG pO2 78 L (83-108) mmHg ABG HCO3 44 H* (21-25) mmol/L ABG Total CO2 46 H (19-24) mmol/L Carbon Dioxide (22-30) mmol/L BUN (9-20) mg/dL Creatinine (0.66-1.25) mg/dL Glucose (74-99) mg/dL POC Glucose (mg/dL) 188 H 159 H (75-99) mg/dL Magnesium (1.6-2.3) mg/dL Albumin (3.5-5.0) g/dL 01/02/19 01/02/19 01/02/19 Range/Units 06:18 06:30 06:30 WBC 14.7 H (3.8-10.6) k/uL RBC 3.63 L (4.30-5.90) m/uL Hgb 10.6 L (13.0-17.5) gm/dL Hct 34.6 L (39.0-53.0) % MCHC 30.6 L (31.0-37.0) g/dL RDW 18.5 H (11.5-15.5) % Plt Count 121 L (150-450) k/uL Neutrophils # 13.8 H (1.3-7.7) k/uL Lymphocytes # 0.4 L (1.0-4.8) k/uL ABG pCO2 (35-45) mmHg ABG pO2 (83-108) mmHg ABG HCO3 (21-25) mmol/L ABG Total CO2 (19-24) mmol/L Carbon Dioxide 41 H* (22-30) mmol/L BUN 29 H (9-20) mg/dL Creatinine 0.47 L (0.66-1.25) mg/dL Glucose 158 H (74-99) mg/dL POC Glucose (mg/dL) 168 H (75-99) mg/dL Magnesium 2.4 H (1.6-2.3) mg/dL Albumin 2.7 L (3.5-5.0) g/dL 01/02/19 Range/Units 12:01 WBC (3.8-10.6) k/uL RBC (4.30-5.90) m/uL Hgb (13.0-17.5) gm/dL Hct (39.0-53.0) % MCHC (31.0-37.0) g/dL RDW (11.5-15.5) % Plt Count (150-450) k/uL Neutrophils # (1.3-7.7) k/uL Lymphocytes # (1.0-4.8) k/uL ABG pCO2 (35-45) mmHg ABG pO2 (83-108) mmHg ABG HCO3 (21-25) mmol/L ABG Total CO2 (19-24) mmol/L Carbon Dioxide (22-30) mmol/L BUN (9-20) mg/dL Creatinine (0.66-1.25) mg/dL Glucose (74-99) mg/dL POC Glucose (mg/dL) 152 H (75-99) mg/dL Magnesium (1.6-2.3) mg/dL Albumin (3.5-5.0) g/dL Microbiology - Last 24 Hours (Table) 12/31/18 20:40 Gram Stain - Preliminary Sputum Sputum Culture - Preliminary Fabi albicans Yeast species 12/29/18 23:54 Gram Stain - Final Sputum Sputum Culture - Final Fabi glabrata Fabi albicans Assessment and Plan (1) Acute respiratory failure with hypoxia Narrative/Plan: The patient continues on ventilator support. He is on FiO2 of 60% today, ve rsus 50% yesterday, he continues to require PEEP greater than 10 mm. Case again discussed with pulmonary medicine. Clinically the picture is most consistent with ARDS, likely due to aspiration. Clinically lymphangitic cancer is supposed to be less likely and therefore it is felt that bronchoscopy, at this time, would not change attendant and would have some risk of causing decompensation. Multiple discussions have been had with the family, but this time want to continue aggressive supportive care. Therefore surgery has been consulted for possible tracheostomy placement Current Visit: Yes Status: Acute Priority: High Code(s): J96.01 - ACUTE RESPIRATORY FAILURE WITH HYPOXIA SNOMED Code(s): 27571445 (2) Acute pneumonitis Narrative/Plan: The possible differentials as noted previously, with ARDS due to aspiration being most likely. Continue current management for CCM, with aggressive ventilator support, and antibiotics. Current Visit: Yes Status: Acute Code(s): J18.9 - PNEUMONIA, UNSPECIFIED ORGANISM SNOMED Code(s): 338649640 (3) Esophageal cancer Narrative/Plan: Her treatment on hold until the patient is able to recover sufficiently from his acute condition Current Visit: No Status: Acute Code(s): C15.9 - MALIGNANT NEOPLASM OF ESOPHAGUS, UNSPECIFIED SNOMED Code(s): 708480926
[2019-01-02 18:13] LABS: Glucose,Whole Blood 162 mg/dL (75-99)
[2019-01-02] MEDS: CISATRACURIUM 200 MG in SODIUM CHLORIDE 0.9% 180 ML IV SCH (20:42)
[2019-01-02] MEDS: SODIUM CHLORIDE 0.9% 1,000 ML IV SCH (20:42)
[2019-01-02] MEDS: traZODone HCL 50 MG TAB PO SCH (20:50)
[2019-01-02] MEDS: 1: MVI, ADULT NO.4 WITH VIT K 10 ML, TRACE (CONC-1ML/DOSE) 1 ML, CALCIUM GLUCONATE 1 GM, IV SCH ×5 (21:44)
[2019-01-03 00:05] LABS: Glucose,Whole Blood 146 mg/dL (75-99)
[2019-01-03] MEDS: INSULIN ASPART (NovoLOG) 100 UNIT/ML VIAL SQ SCH ×4 (00:08→19:13)
[2019-01-03] MEDS: HYDROmorphone 1 MG/ML 1 ML SYRINGE IVP PRN ×8 (00:13→21:22)
[2019-01-03] MEDS: PROPOFOL 1,000 MG in EMPTY BAG 1 BAG IV SCH ×5 (00:33→21:00)
[2019-01-03] MEDS: NOREPINEPHRINE 32 MG in SODIUM CHLORIDE 0.9% 218 ML IV SCH ×3 (01:53→23:52)
[2019-01-03] MEDS: IPRATROPIUM-ALBUTEROL 3 ML NEB INHALATION SCH ×6 (03:53→23:26)
[2019-01-03] MEDS: ARTIFICIAL TEARS-HYPROMELLOSE DROPS 15 ML BTL BOTH EYES SCH ×6 (04:19→23:33)
[2019-01-03 04:37] LABS: Anisocytosis Slight; Basophils % (A) 0 %; Eosinophils % (A) 0 %; HCT 30.9 % (39.0-53.0); HGB 9.2 gm/dL (13.0-17.5); Hypochromasia Marked; Lymphocytes # (A) 0.4 k/uL (1.0-4.8); Lymphocytes % (A) 4 %; MCH 28.2 pg (25.0-35.0); MCHC 29.9 g/dL (31.0-37.0); MCV 94.4 fL (80.0-100.0); Mean Platelet Volume 10.4; Monocytes # (A) 0.4 k/uL (0-1.0); Monocytes % (A) 4 %; Neutrophils # (A) 9.3 k/uL (1.3-7.7); Neutrophils % (A) 91 %; Platelet Count 118 k/uL (150-450); RBC 3.28 m/uL (4.30-5.90); RDW 18.5 % (11.5-15.5); WBC 10.3 k/uL (3.8-10.6)
[2019-01-03 04:51] LABS: African American GFR (CKD) >90 (>60 ml/min/1.73 sqM); Blood Urea Nitrogen 31 mg/dL (9-20); Calcium 8.2 mg/dL (8.4-10.2); Chloride 94 mmol/L (98-107); Glucose 162 mg/dL (74-99); Magnesium 2.3 mg/dL (1.6-2.3); Phosphorus 3.3 mg/dL (2.5-4.5); Potassium 4.1 mmol/L (3.5-5.1); Sodium 140 mmol/L (137-145)
[2019-01-03 04:57] LABS: Anion Gap -2 mmol/L
[2019-01-03 04:58] LABS: Carbon Dioxide 48 mmol/L (22-30)
[2019-01-03 05:23] LABS: ABG Base Excess 24.5 mmol/L; ABG PCO2 70 mmHg (35-45); ABG PH 7.45 (7.35-7.45); ABG PO2 81 mmHg (83-108); ABG TCO2 51 mmol/L (19-24); Allen Test Performed? Yes
[2019-01-03 05:25] LABS: ABG HCO3 49 mmol/L (21-25)
[2019-01-03 06:27] LABS: Glucose,Whole Blood 153 mg/dL (75-99)
[2019-01-03] MEDS: VANCOMYCIN 1,250 MG in SODIUM CHLORIDE 0.9% 250 ML IVPB SCH ×3 (06:42→22:37)
[2019-01-03] MEDS: FORMOTEROL FUMARATE 20 MCG/2 ML NEBU INHALATION SCH ×2 (07:29→19:35)
[2019-01-03] MEDS: BUDESONIDE 1 MG/2 ML NEBU INHALATION SCH ×2 (07:29→19:35)
[2019-01-03] MEDS: FUROSEMIDE 10 MG/ML 4 ML VIAL IV SCH (09:29)
[2019-01-03] MEDS: SENNOSIDES-DOCUSATE SODIUM 1 EACH TAB PO SCH ×2 (09:29→20:31)
[2019-01-03] MEDS: HEPARIN SODIUM,PORCINE 5,000 UNIT/ML 1 ML VIAL SQ SCH ×3 (09:31→23:33)
[2019-01-03] MEDS: methylPREDNISolone SOD SUCCI 125 MG/2 ML VIAL IV SCH ×2 (09:34→16:13)
[2019-01-03] MEDS: FLUCONAZOLE IN NACL,ISO-OSM 100 MG in SALINE 1 50ML.BAG IVPB SCH (09:40)
[2019-01-03] MEDS: MEROPENEM 1 GM in SODIUM CHLORIDE 0.9% 100 ML IVPB SCH ×3 (09:41→23:34)
[2019-01-03] MEDS: CHLORHEXIDINE GLUCONATE 15 ML CUP MUCOUS MEM SCH ×2 (10:00→20:31)
[2019-01-03] MEDS: PANTOPRAZOLE 40 MG/10 ML VIAL IVP SCH ×2 (10:00→20:31)
[2019-01-03] MEDS ORDERED: ALTEPLASE 2 MG VIAL (CATHFLO) IV STA ×2 (10:07→11:17)
--- NOTE | 2019-01-03 10:37 | P.PN ---
Subjective Stable on ventilator, paralyzed and sedated Objective - Vital Signs Vital signs: Vital Signs Temp 36.5 F L 01/03/19 08:00 Pulse 94 01/03/19 10:00 Resp 35 H 01/03/19 10:00 BP 114/81 01/03/19 10:00 Pulse Ox 90 L 01/03/19 10:00 Intake & Output 01/02/19 01/03/19 01/03/19 18:59 06:59 18:59 Intake Total 2102.993 1767.263 456.475 Output Total 2800 4135 565 Balance -697.007 -2367.737 -108.525 Weight 83.9 kg 82.1 kg Intake: IV 1830 1373 312 Calcium Gluconate 1 gm 560 770 70 Potassium Phosphate 15 mmol In Amino Acid 5%- D15w 1,000 ml @ 70 mls/hr IV .BY DURATION [facility] Rx#: [id number] Fluconazole in NaCl,Iso- 50 50 Osm 100 mg In Saline 1 50ml.bag @ 50 mls/hr IVPB DAILY [facility] Rx#:[id number] Meropenem 1 gm In Sodium 200 100 100 Chloride 0.9% 100 ml @ 200 mls/hr IVPB Q8HR [facility] Rx#:[id number] Mvi, Adult No.4 with Vit 280 K 10 ml Trace (Conc-1Ml/ Dose) 1 ml Sodium Acetate 35 meq Calcium Gluconate 1 gm In Amino Acid 5%- D15w 1,000 ml @ 70 mls/hr IV .BY DURATION [facility] Rx#: [id number] Sodium Chloride 0.9% 1, 240 220 80 000 ml @ 20 mls/hr IV . Q24H [facility] Rx#:[id number] Vanco 500 Vancomycin 1,250 mg In 250 Sodium Chloride 0.9% 250 ml @ 125 mls/hr IVPB Q8H [facility] Rx#:[id number] pressure bag 33 12 Intake, IV Titration 272.993 394.263 144.475 Amount Cisatracurium 200 mg In 172.993 119.902 66.89 Sodium Chloride 0.9% 180 ml @ 1 MCG/KG/MIN 4.758 mls/hr IV .Q24H [facility] Rx#: [id number] Propofol 1,000 mg In 100 274.361 77.585 Empty Bag 1 bag @ Titrate IV .Q0M [facility] Rx#: [id number] Output: Urine 2800 3235 565 Emesis 900 Other: Voiding Method Indwelling Catheter Indwelling Catheter # Bowel Movements 1 ABP, PAP, CO, CI - Last Documented Arterial Blood Pressure 108/53 - Constitutional General appearance: Present: thin - EENT Eyes: Present: PERRLA - Respiratory Respiratory: bilateral: CTA - Cardiovascular Heart sounds: normal: S1, S2 - Gastrointestinal General gastrointestinal: Present: soft - Additional findings Additional findings: Extremities warm & perfused - Labs CBC & Chem 7: 01/03/19 04:30 01/03/19 04:30 Labs: Abnormal Lab Results - Last 24 Hours (Table) 01/02/19 01/02/19 01/03/19 Range/Units 12:01 18:11 00:01 RBC (4.30-5.90) m/uL Hgb (13.0-17.5) gm/dL Hct (39.0-53.0) % MCHC (31.0-37.0) g/dL RDW (11.5-15.5) % Plt Count (150-450) k/uL Neutrophils # (1.3-7.7) k/uL Lymphocytes # (1.0-4.8) k/uL ABG pCO2 (35-45) mmHg ABG pO2 (83-108) mmHg ABG HCO3 (21-25) mmol/L ABG Total CO2 (19-24) mmol/L Chloride (98-107) mmol/L Carbon Dioxide (22-30) mmol/L BUN (9-20) mg/dL Creatinine (0.66-1.25) mg/dL Glucose (74-99) mg/dL POC Glucose (mg/dL) 152 H 162 H 146 H (75-99) mg/dL Calcium (8.4-10.2) mg/dL 01/03/19 01/03/19 01/03/19 Range/Units 04:30 04:30 05: RBC 3.28 L (4.30-5.90) m/uL Hgb 9.2 L (13.0-17.5) gm/dL Hct 30.9 L (39.0-53.0) % MCHC 29.9 L (31.0-37.0) g/dL RDW 18.5 H (11.5-15.5) % Plt Count 118 L (150-450) k/uL Neutrophils # 9.3 H (1.3-7.7) k/uL Lymphocytes # 0.4 L (1.0-4.8) k/uL ABG pCO2 70 H (35-45) mmHg ABG pO2 81 L (83-108) mmHg ABG HCO3 49 H* (21-25) mmol/L ABG Total CO2 51 H (19-24) mmol/L Chloride 94 L (98-107) mmol/L Carbon Dioxide 48 H* (22-30) mmol/L BUN 31 H (9-20) mg/dL Creatinine 0.54 L (0.66-1.25) mg/dL Glucose 162 H (74-99) mg/dL POC Glucose (mg/dL) (75-99) mg/dL Calcium 8.2 L (8.4-10.2) mg/dL 01/03/19 Range/Units 06:13 RBC (4.30-5.90) m/uL Hgb (13.0-17.5) gm/dL Hct (39.0-53.0) % MCHC (31.0-37.0) g/dL RDW (11.5-15.5) % Plt Count (150-450) k/uL Neutrophils # (1.3-7.7) k/uL Lymphocytes # (1.0-4.8) k/uL ABG pCO2 (35-45) mmHg ABG pO2 (83-108) mmHg ABG HCO3 (21-25) mmol/L ABG Total CO2 (19-24) mmol/L Chloride (98-107) mmol/L Carbon Dioxide (22-30) mmol/L BUN (9-20) mg/dL Creatinine (0.66-1.25) mg/dL Glucose (74-99) mg/dL POC Glucose (mg/dL) 153 H (75-99) mg/dL Calcium (8.4-10.2) mg/dL Microbiology - Last 24 Hours (Table) 12/31/18 20:40 Gram Stain - Preliminary Sputum Sputum Culture - Preliminary Fabi albicans Yeast species - Imaging and Cardiology Chest x-ray: image reviewed Assessment and Plan (1) Acute respiratory failure with hypoxia Narrative/Plan: Stable , on 60% FIO2 and ventilator, paralyzed and sedated Current Visit: Yes Status: Acute Priority: High Code(s): J96.01 - ACUTE RESPIRATORY FAILURE WITH HYPOXIA SNOMED Code(s): 82492820 (2) Fever Narrative/Plan: Resolved, on Meropenam+Vancomycin Current Visit: Yes Status: Acute Code(s): R50.9 - FEVER, UNSPECIFIED SNOMED Code(s): 026186769 (3) Pulmonary infiltrates Narrative/Plan: ARDS, no definate infectious process Current Visit: Yes Status: Acute Code(s): R91.8 - OTHER NONSPECIFIC ABNORMAL FINDING OF LUNG FIELD SNOMED Code(s): 913581525 (4) Esophageal cancer Narrative/Plan: Metastatic, on FOLFOX Chemotherapy. The patient has incurable disease and overall prognosis is poor Current Visit: No Status: Acute Code(s): C15.9 - MALIGNANT NEOPLASM OF ESOPHAGUS, UNSPECIFIED SNOMED Code(s): 620159456 Plan: 1- Continue ventilator per Dr Ortiz 2- Continue Antibiotics for now 3- Reviewed lab results with 4- Continue TPN 5- Tracheostomy placement soon 6- No treatment of cancer at present 7- Overall prognosis remains poor , has incurable metastatic Esophageal carcinoma
--- NOTE | 2019-01-03 10:58 | P.PN ---
Progress Note - Text Progress Note Date: 01/03/19 The patient range in the ICU. Apparently his sedation has been held today. His condition has remained stable. We will remain on standby in case trach and PEG as needed.
--- NOTE | 2019-01-03 11:25 | P.PN ---
Subjective PER MY BAGGAGE PORTER HEAD This is a 48-year-old gentleman with history of esophageal cancer, completed radiation and chemotherapy, history of gastric pull-through, recent biopsy reporting adenocarcinoma with chemotherapy resumed. T-max on admission 100.3, WBC 14.6, neutrophils normal, hemoglobin ,platelets, electrolytes essentially normal.Currently T-max 100.2, WBC improving, down to 12.4.. Maintained on IV fluid hydration of D5.45 MLS per hour, cefepime, vancomycin. Speech consulted to evaluate for silent aspiration(prior history of PEG tube which has been discontinued). Chest x-ray reported new multifocal airspace disease possible multifocal pneumonia versus pulmonary edema. F/U chest x-ray this morning with no significant change. On admission patient had been satting high 90s on room air. During the afternoon patient sats decreased to 93-94%. Last night, patient desatted to 70s to 80s %, A teamed called, received a dose of Lasix 40 IV push and placed on BiPAP. BiPAP weaned off currently on 15 L high flow nasal cannula this morning, maintaining O2 sats of 93%. No further nausea vomiting or diarrhea. Tolerating clear liquid diet. 12/26/2018 Tested negative for influenza, CT negative for PE, received a couple doses of Lasix for potential pulmonary edema, Swallow evaluation per speech therapy with no aspiration observed, universal aspiration precautions recommended..During the night, patient desatted, did not respond to BiPAP, t ransferred to ICU and placed on Airvo. Maintaining O2 sats of low 90s on 80% airvo. Maintained on IV antibiotics of vancomycin, Maxipime as per infectious disease. T-max 100.4,WBC WNL. Preliminary blood cultures negative at 24 hours .Continues on nebulized bronchodilators. Feels better this morning. BY DR Louis 12/27/2018: She remains on high flow nasal cannula oxygen. Pulse ox is 92%. He remains on IV vancomycin plus Maxipime for antibiotic coverage. Solu-Medrol was started yesterday and seems to help. He remains nothing by mouth for suspected chronic aspiration. His is at bedside. Chest x-ray today shows worsening interstitial airspace disease. Clinically he feels better. Staff report he is doing better. 12/28/2018: Patient's chest x-ray shortness of breath continue worsen. He is unable to move significantly not descending. He remains on Airvo. His remains at bedside. I discussed this case with Dr. Wade, he is considering bronchoscopy, but fears that he would end up being intubated and unable to ween.Exact cause of his symptoms are unknown without multifactorial due to aspiration pneumonia, chemical pneumonitis due to chemotherapy, and other factors. 12/29/2018 Maintained on vancomycin and cefepime as per ID. Remains airvo dependent, maintaining O2 sats of 95% on 60%. chest x-ray reporting stable bilateral pneumonia, ARDS, or pulmonary edema; diffuse increase in opacification to the right lung. Recurrent emesis , aspiration risks changed to NPO, TPN ordered. Blood sugars controlled. Oral thrush, Diflucan initiated. T-max 99.9, WBC down to 15.1. PER MY BAGGAGE PORTER HEAD 12/30/2018 respiratory status continued to deteriorate yesterday and patient required intubation yesterday afternoon. Chest x-ray reporting slight improvement in diffuse pulmonary edema, persistent interstitial opacity's bilaterally right more than left, bibasilar atelectasis. ABGs reflected severe respiratory acidosis this morning. FiO2 has been weaned down to 70%, PEEP has been weaned down to 14. Mild sinus tachycardia. Currently on pressor support of Levophed 40 mcgs, and on chemical paralysis with Nimbex. Right pupil fixed and dilated, unstable at this time for transfer to CT. potassium elevated at 6.2 received sodium bicarb D50, insulin, down to 5.8. Afebrile, White count up to 52, on Merrem ,Vancomycin and Diflucan. Repeat cultures sent. Maintained on TPN. Continues on nebulized bronchodilators, IV steroids 12/31/18 Maintained on Nimbex drip, ABGs improved with FiO2 decreased to 50% and PEEP down to 12%,cuff leak resolved with ETT repositioned.Levophed weaned down to 2 mcgs. Maintained on TPN. Continues on nebulized bronchodilators, IV steroids. Aggressive fluid resuscitation decreased, positive fluid balance with extremity edema .Afebrile,cultures negative. 01/01/2019 sputum culture report and Fabi glabrata and Fabi albicans, repeat sputum culture pending. Maintained on IV antibiotics of vancomycin and Merrem.afebrile,WBC decreased to 12.7.Attempted Nimbex weaning, not tolerated, peak pressure reading, and oxygenating, desatted into the 80s.Nimbex resumed. patient was maintaining O2 sats in the high 80s, ABGs noted, including PO2 of 67. Vent changes: Rate decreased, FiO2 increased to 60%,complete maintained and 12. chest x-ray reporting mild improvement of bibasilar infiltrates. IV fluids decreased yesterday,continues on 0.9 at KVO, as well as TPN.24 hour I&O reflecting a negative fluid balance.Positive bowel movement this morning. 01/02/2019 Remains vent dependent on FiO2 of 60%/+12 Peep. Maintained on Nimbex and Diprovan. Dr. Padilla consulted regarding tracheostomy. Telemetry sinus rhythm to sinus tach. BY DR Louis 01/03/2019: Patient remains in the intensive care unit, intubated, sedated and mechanically ventilated. His current PEEP is 12. FiO2 is still 60%. HEENT been able to wean off the paralytic agent. He remains on fluconazole, meropenem and vancomycin for antibiotic coverage. His is at bedside. Telemetry continues to show sinus rhythm. Achy ostomy is planned for the near future based on his status. He is slightly improved today compared to yesterday. Objective - Vital Signs Vital signs: Vital Signs Temp 36.5 F L 01/03/19 08:00 Pulse 94 01/03/19 10:00 Resp 35 H 01/03/19 10:00 BP 114/81 01/03/19 10:00 Pulse Ox 90 L 01/03/19 10:00 Intake & Output 01/02/19 01/03/19 01/03/19 18:59 06:59 18:59 Intake Total 2102.993 1767.263 456.475 Output Total 2800 4135 565 Balance -697.007 -2367.737 -108.525 Weight 83.9 kg 82.1 kg Intake: IV 1830 1373 312 Calcium Gluconate 1 gm 560 770 70 Potassium Phosphate 15 mmol In Amino Acid 5%- D15w 1,000 ml @ 70 mls/hr IV .BY DURATION [facility] Rx#: [id number] Fluconazole in NaCl,Iso- 50 50 Osm 100 mg In Saline 1 50ml.bag @ 50 mls/hr IVPB DAILY [facility] Rx#:[id number] Meropenem 1 gm In Sodium 200 100 100 Chloride 0.9% 100 ml @ 200 mls/hr IVPB Q8HR [facility] Rx#:[id number] Mvi, Adult No.4 with Vit 280 K 10 ml Trace (Conc-1Ml/ Dose) 1 ml Sodium Acetate 35 meq Calcium Gluconate 1 gm In Amino Acid 5%- D15w 1,000 ml @ 70 mls/hr IV .BY DURATION [facility] Rx#: [id number] Sodium Chloride 0.9% 1, 240 220 80 000 ml @ 20 mls/hr IV . Q24H [facility] Rx#:[id number] Vanco 500 Vancomycin 1,250 mg In 250 Sodium Chloride 0.9% 250 ml @ 125 mls/hr IVPB Q8H [facility] Rx#:[id number] pressure bag 33 12 Intake, IV Titration 272.993 394.263 144.475 Amount Cisatracurium 200 mg In 172.993 119.902 66.89 Sodium Chloride 0.9% 180 ml @ 1 MCG/KG/MIN 4.758 mls/hr IV .Q24H [facility] Rx#: [id number] Propofol 1,000 mg In 100 274.361 77.585 Empty Bag 1 bag @ Titrate IV .Q0M [facility] Rx#: [id number] Output: Urine 2800 3235 565 Emesis 900 Other: Voiding Method Indwelling Catheter Indwelling Catheter # Bowel Movements 1 ABP, PAP, CO, CI - Last Documented Arterial Blood Pressure 108/53 - Exam HEENT: Conjunctivae normal. Pupils equal, OG present, oral mucosa dry NECK: Supple, No JVD,No LNs CARDIOVASCULAR: S1, S2 regular. Sinus rhythm at this time No murmur, no rub, no gallop RESPIRATION: Breath sounds diminished with improving bibasilar crackles, seen equal today ABDOMEN: Soft, nondistended, nontender. no masses palpable. Bowel sounds heard. EXTREMITIES: positive edema. no cyanosis, no clubbing. Mild anasarca NERVOUS SYSTEM: Unable to evaluate at this time, as patient intubated sedated and paralyzed - Labs CBC & Chem 7: 01/03/19 04:30 01/03/19 04:30 Labs: Abnormal Lab Results - Last 24 Hours (Table) 01/02/19 01/02/19 01/03/19 Range/Units 12:01 18:11 00:01 RBC (4.30-5.90) m/uL Hgb (13.0-17.5) gm/dL Hct (39.0-53.0) % MCHC (31.0-37.0) g/dL RDW (11.5-15.5) % Plt Count (150-450) k/uL Neutrophils # (1.3-7.7) k/uL Lymphocytes # (1.0-4.8) k/uL ABG pCO2 (35-45) mmHg ABG pO2 (83-108) mmHg ABG HCO3 (21-25) mmol/L ABG Total CO2 (19-24) mmol/L Chloride (98-107) mmol/L Carbon Dioxide (22-30) mmol/L BUN (9-20) mg/dL Creatinine (0.66-1.25) mg/dL Glucose (74-99) mg/dL POC Glucose (mg/dL) 152 H 162 H 146 H (75-99) mg/dL Calcium (8.4-10.2) mg/dL 01/03/19 01/03/19 01/03/19 Range/Units 04:30 04:30 05:19 RBC 3.28 L (4.30-5.90) m/uL Hgb 9.2 L (13.0-17.5) gm/dL Hct 30.9 L (39.0-53.0) % MCHC 29.9 L (31.0-37.0) g/dL RDW 18.5 H (11.5-15.5) % Plt Count 118 L (150-450) k/uL Neutrophils # 9.3 H (1.3-7.7) k/uL Lymphocytes # 0.4 L (1.0-4.8) k/uL ABG pCO2 70 H (35-45) mmHg ABG pO2 81 L (83-108) mmHg ABG HCO3 49 H* (21-25) mmol/L ABG Total CO2 51 H (19-24) mmol/L Chloride 94 L (98-107) mmol/L Carbon Dioxide 48 H* (22-30) mmol/L BUN 31 H (9-20) mg/dL Creatinine 0.54 L (0.66-1.25) mg/dL Glucose 162 H (74-99) mg/dL POC Glucose (mg/dL) (75-99) mg/dL Calcium 8.2 L (8.4-10.2) mg/dL 01/03/19 Range/Units 06:13 RBC (4.30-5.90) m/uL Hgb (13.0-17.5) gm/dL Hct (39.0-53.0) % MCHC (31.0-37.0) g/dL RDW (11.5-15.5) % Plt Count (150-450) k/uL Neutrophils # (1.3-7.7) k/uL Lymphocytes # (1.0-4.8) k/uL ABG pCO2 (35-45) mmHg ABG pO2 (83-108) mmHg ABG HCO3 (21-25) mmol/L ABG Total CO2 (19-24) mmol/L Chloride (98-107) mmol/L Carbon Dioxide (22-30) mmol/L BUN (9-20) mg/dL Creatinine (0.66-1.25) mg/dL Glucose (74-99) mg/dL POC Glucose (mg/dL) 153 H (75-99) mg/dL Calcium (8.4-10.2) mg/dL Microbiology - Last 24 Hours (Table) 12/31/18 20:40 Gram Stain - Preliminary Sputum Sputum Culture - Preliminary Fabi albicans Yeast species Assessment and Plan (1) Acute respiratory failure with hypoxia Current Visit: Yes Status: Acute Priority: High Code(s): J96.01 - ACUTE RESPIRATORY FAILURE WITH HYPOXIA SNOMED Code(s): 97854955 (2) Acute pneumonitis Current Visit: Yes Status: Acute Code(s): J18.9 - PNEUMONIA, UNSPECIFIED ORGANISM SNOMED Code(s): 089865137 (3) Aspiration pneumonia Current Visit: Yes Status: Acute Code(s): J69.0 - PNEUMONITIS DUE TO INHALATION OF FOOD AND VOMIT SNOMED Code(s): 091181172 (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 Current Visit: Yes Status: Acute Code(s): C79.89 - SECONDARY MALIGNANT NEOPLASM OF OTHER SPECIFIED SITES SNOMED Code(s): 474258053 (5) Metastasis from esophageal cancer Current Visit: Yes Status: Acute Priority: High Code(s): C79.9 - SECONDARY MALIGNANT NEOPLASM OF UNSPECIFIED SITE; C15.9 - MALIGNANT NEOPLASM OF ESOPHAGUS, UNSPECIFIED SNOMED Code(s): 248532489 (6) Esophageal cancer Current Visit: No Status: Acute Code(s): C15.9 - MALIGNANT NEOPLASM OF ESOPHAGUS, UNSPECIFIED SNOMED Code(s): 787976917 (7) ARDS (adult respiratory distress syndrome) Current Visit: Yes Status: Acute Code(s): J80 - ACUTE RESPIRATORY DISTRESS SYNDROME SNOMED Code(s): 44747788 (8) Oral candidiasis Current Visit: Yes Status: Acute Code(s): B37.0 - CANDIDAL STOMATITIS SNOMED Code(s): 41907431 Plan: Continue on antibiotics per infectious disease and oxygenation treatment per critical care/pulmonology. Wait on further recommendations from hematology/oncology., Infectious disease/ genreral surgery for possible trach He'll be reevaluated in the next 24 hours.
[2019-01-03 12:14] LABS: Glucose,Whole Blood 106 mg/dL (75-99)
--- NOTE | 2019-01-03 12:25 | XR ---
EXAMINATION TYPE: XR chest 1V portable DATE OF EXAM: 01/03/2019 COMPARISON: 01/02/2019 INDICATION: Tube placement TECHNIQUE: Single frontal view of the chest is obtained. FINDINGS: The heart size is normal. The pulmonary vasculature is normal. There is diffuse increased lung markings lower lung martínez. This is stable from comparison. Small le ft pleural effusion is stable. Endotracheal tube tip is above the raul. Nasogastric tube is within the distal esophagus, stable in position from prior study. Left central venous catheter is present with tip in superior vena cava re gion. Port is present on the right with the superior vena cava region. IMPRESSION: 1. Bilateral lower lobe infiltrates, stable. 2. Multiple lines and catheters discussed above. 3. Small left pleural effusion
[2019-01-03] MEDS ORDERED: predniSONE 20 MG TAB PO SCH (12:30)
--- NOTE | 2019-01-03 12:31 | P.PN ---
Subjective Progress Note Date: 01/03/19 On 01/03/2019, the patient was seen in follow-up. Doing essentially the same without any significant interval warp changer the past 24 hours. Afebrile hemodynamically stable. Remains sedated and paralyzed. Unable to wean off the paralytic as the patient becomes a significant stenosis with a mechanical ventilator and he would desaturate. He is still on the same vent setting with a PEEP of 12 with an FiO2 of 60% tidal volume of 380 the rate of 34. He remains sedated with propofol and paralyzed. He is receiving TPN for nutritional support. No significant orotracheal secretions. Chest x-ray findings are essentially the same with diffuse breath and pulmonary infiltrates. No evidence of any pneumothorax. He is diuresing with IV Lasix. He is receiving Lasix 40 mg every 12 hours. The patient is not fluid balance over the past 24 hours has been -3.064 L and he still reducing adequate amount of urine output. His blood gases from this morning showed a pH of 7.45 with a pCO2 of 70 and pO2 of 81 and this was not an FiO2 of 60%. Static airway pressure is 35. No orotracheal secretions. He is on a combination of meropenem and vancomycin and Diflucan. OG tube is in place without any significant output at this point in time. Edema in the lower extremities is improving. Cardiac rhythm is sinus. Objective - Vital Signs Vital signs: Vital Signs Temp 36.5 F L 01/03/19 08:00 Pulse 89 01/03/19 12:00 Resp 35 H 01/03/19 10:00 BP 114/81 01/03/19 10:00 Pulse Ox 90 L 01/03/19 10:00 Intake & Output 01/02/19 01/03/19 01/03/19 18:59 06:59 18:59 Intake Total 2102.993 1767.263 456.475 Output Total 2800 4135 565 Balance -697.007 -2367.737 -108.525 Weight 83.9 kg 82.1 kg Intake: IV 1830 1373 312 Calcium Gluconate 1 gm 560 770 70 Potassium Phosphate 15 mmol In Amino Acid 5%- D15w 1,000 ml @ 70 mls/hr IV .BY DURATION [facility] Rx#: [id number] Fluconazole in NaCl,Iso- 50 50 Osm 100 mg In Saline 1 50ml.bag @ 50 mls/hr IVPB DAILY [facility] Rx#:[id number] Meropenem 1 gm In Sodium 200 100 100 Chloride 0.9% 100 ml @ 200 mls/hr IVPB Q8HR [facility] Rx#:[id number] Mvi, Adult No.4 with Vit 280 K 10 ml Trace (Conc-1Ml/ Dose) 1 ml Sodium Acetate 35 meq Calcium Gluconate 1 gm In Amino Acid 5%- D15w 1,000 ml @ 70 mls/hr IV .BY DURATION [facility] Rx#: [id number] Sodium Chloride 0.9% 1, 240 220 80 000 ml @ 20 mls/hr IV . Q24H [facility] Rx#:[id number] Vanco 500 Vancomycin 1,250 mg In 250 Sodium Chloride 0.9% 250 ml @ 125 mls/hr IVPB Q8H [facility] Rx#:[id number] pressure bag 33 12 Intake, IV Titration 272.993 394.263 144.475 Amount Cisatracurium 200 mg In 172.993 119.902 66.89 Sodium Chloride 0.9% 180 ml @ 1 MCG/KG/MIN 4.758 mls/hr IV .Q24H [facility] Rx#: [id number] Norepinephrine 32 mg In 0 Sodium Chloride 0.9% 218 ml @ 0.05 MCG/KG/MIN 1. 807 mls/hr IV .Q24H [facility] Rx#:[id number] Propofol 1,000 mg In 100 274.361 77.585 Empty Bag 1 bag @ Titrate IV .Q0M [facility] Rx#: [id number] Output: Urine 2800 3235 565 Emesis 900 Other: Voiding Method Indwelling Catheter Indwelling Catheter # Bowel Movements 1 ABP, PAP, CO, CI - Last Documented Arterial Blood Pressure 108/53 - Exam General: Intubated, sedated, paralyzed, calm and comfortable and symptoms with the mechanical ventilator. Orogastric and orotracheal tube are both in place. The patient also has a left IJ triple-lumen catheter and a Mediport over the anterior chest area. No evidence of any leaks around the oral tracheal tube at this point in time. Head: Normocytic, Atraumatic Neck: Supple, Neck was supple and without jugular venous distension, thyromegaly, or carotid bruits. Carotids were easily palpable bilaterally. There was no adenopathy., There is oropharyngeal candidiasis Mouth: No Lesions, No Thrush, the mucous membranes are extremely dry Eyes: Non-sclerotic No Palpable cervical, supraclavicular, axillary adenopathy Heart: Cardiac exam revealed the PMI to be normally situated and sized. The rhythm was regular and no extrasystoles were noted during several minutes of auscultation. The first and second heart sounds were normal and physiologic splitting of the second heart sound was noted. There were no murmurs, rubs, clicks, or gallops. Lungs: The patient is crackles in the mid and lower lung martínez bilaterally left base more than right. Vessels are equal and symmetrical otherwise. Abdomen: Soft, Non-Distended, Non-Tended, BSx4 Extremities: There is development of edema in the upper and lower extremity is bilaterally, there is some limited edema, pulses are equal and symmetrical in all 4 extremities without any cyanosis or clubbing. Neurological: An adequate neurologic exam cannot be done as the patient is curre ntly sedated intubated paralyzed Psych: Unable to perform due to the above-mentioned Examination of the skin revealed no evidence of significant rashes, suspicious appearing nevi or other concerning lesions. - Labs CBC & Chem 7: 01/03/19 04:30 01/03/19 04:30 Labs: Abnormal Lab Results - Last 24 Hours (Table) 01/02/19 01/03/19 01/03/19 Range/Units 18:11 00:01 04:30 RBC 3.28 L (4.30-5.90) m/uL Hgb 9.2 L (13.0-17.5) gm/dL Hct 30.9 L (39.0-53.0) % MCHC 29.9 L (31.0-37.0) g/dL RDW 18.5 H (11.5-15.5) % Plt Count 118 L (150-450) k/uL Neutrophils # 9.3 H (1.3-7.7) k/uL Lymphocytes # 0.4 L (1.0-4.8) k/uL ABG pCO2 (35-45) mmHg ABG pO2 (83-108) mmHg ABG HCO3 (21-25) mmol/L ABG Total CO2 (19-24) mmol/L Chloride (98-107) mmol/L Carbon Dioxide (22-30) mmol/L BUN (9-20) mg/dL Creatinine (0.66-1.25) mg/dL Glucose (74-99) mg/dL POC Glucose (mg/dL) 162 H 146 H (75-99) mg/dL Calcium (8.4-10.2) mg/dL 01/03/19 01/03/19 01/03/19 Range/Units 04:30 05:19 06:13 RBC (4.30-5.90) m/uL Hgb (13.0-17.5) gm/dL Hct (39.0-53.0) % MCHC (31.0-37.0) g/dL RDW (11.5-15.5) % Plt Count (150-450) k/uL Neutrophils # (1.3-7.7) k/uL Lymphocytes # (1.0-4.8) k/uL ABG pCO2 70 H (35-45) mmHg ABG pO2 81 L (83-108) mmHg ABG HCO3 49 H* (21-25) mmol/L ABG Total CO2 51 H (19-24) mmol/L Chloride 94 L (98-107) mmol/L Carbon Dioxide 48 H* (22-30) mmol/L BUN 31 H (9-20) mg/dL Creatinine 0.54 L (0.66-1.25) mg/dL Glucose 162 H (74-99) mg/dL POC Glucose (mg/dL) 153 H (75-99) mg/dL Calcium 8.2 L (8.4-10.2) mg/dL 01/03/19 Range/Units 12:10 RBC (4.30-5.90) m/uL Hgb (13.0-17.5) gm/dL Hct (39.0-53.0) % MCHC (31.0-37.0) g/dL RDW (11.5-15.5) % Plt Count (150-450) k/uL Neutrophils # (1.3-7.7) k/uL Lymphocytes # (1.0-4.8) k/uL ABG pCO2 (35-45) mmHg ABG pO2 (83-108) mmHg ABG HCO3 (21-25) mmol/L ABG Total CO2 (19-24) mmol/L Chloride (98-107) mmol/L Carbon Dioxide (22-30) mmol/L BUN (9-20) mg/dL Creatinine (0.66-1.25) mg/dL Glucose (74-99) mg/dL POC Glucose (mg/dL) 106 H (75-99) mg/dL Calcium (8.4-10.2) mg/dL Microbiology - Last 24 Hours (Table) 12/31/18 20:40 Gram Stain - Final Sputum Sputum Culture - Final Fabi albicans Fabi glabrata Assessment and Plan Plan: 1 acute hypoxic respiratory failure/ARDS with diffuse bilateral pulmonary infiltrates currently intubated on a mechanical ventilator. The patient presented with ongoing aspiration and subsequently developed diffuse bilateral pulmonary infiltrates and currently the patient is intubated sedated and paral yzed on a mechanical ventilator. The patient remains on low tidal volume ventilation with permissive hypercapnia. No significant changes condition compared to yesterday. The patient remains borderline oxygenation while being on an FiO2 of 60 with a PEEP of 12. Remains sedated and paralyzed. Con templating tracheostomy tube insertion and surgical consultation will be obtained. A surgical consultation has been obtained. Nevertheless, he was deemed to be high risk for tracheostomy and operating room because of his high PEEP and FiO2 requirements. Based on that, the procedure was postponed. Surgeries on the case and was still contemplating tracheostomy tube insertion once his FiO2 is further lowered. The blood gases from today, the chest x-ray from today, the airway and the lung mechanics remain unchanged the patient continues to be in ARDS, sedated and paralyzed. 2 metastatic esophageal cancer currently on FOLFOX systemic chemotherapy might the patient has local recurrence in his stomach and metastases to his lumbar spine 3 recurrent aspiration with poor tolerability of oral intake and the patient is having frequent emesis 4 patient remains nothing by mouth, unable to meet caloric requirements secondary to above, currently on TPN for nutritional support 5 leukocytosis,, improved 6 oropharyngeal candidiasis, currently on IV Diflucan 7 severe respiratory acidosis improved with some further adjustments in the tidal volume and the respiratory rate. Currently the patient is undergoing permissive hypercapnia. 8 metabolic alkalosis. 2 hypercapnic respiratory failure 9 generalized anxiety disorder 10 shock with profound hypotension, recovered and the patient is currently being diuresed with IV Lasix attempting a negative fluid balance. Plan Condition is extremely critical. Continue same treatment. Unable to wean off paralytics. Continue vent support. Attempt to wean down the FiO2 as possible. Tracheostomy tube once the FiO2 is further lowers. Continue vent support for now. Continue IV diuretics. Continue IV antibiotics. We'll continue to karen toth. Evaluation was done and more than 30 minutes. This is a critically care evaluation. Prognosis poor. We'll continue treatment based on family's wishes. Time with Patient: Greater than 30
[2019-01-03] MEDS: CISATRACURIUM 200 MG in SODIUM CHLORIDE 0.9% 180 ML IV SCH ×2 (12:33→22:40)
[2019-01-03 12:54] LABS: ABG Base Excess 26.4 mmol/L; ABG Oxygen Saturation 96.3 % (94-97); ABG PCO2 64 mmHg (35-45); ABG PO2 86 mmHg (83-108); ABG TCO2 52 mmol/L (19-24); Allen Test Performed? Yes
[2019-01-03 12:57] LABS: ABG HCO3 50 mmol/L (21-25)
[2019-01-03] MEDS: 1: MVI, ADULT NO.4 WITH VIT K 10 ML, TRACE (CONC-1ML/DOSE) 1 ML, CALCIUM GLUCONATE 1 GM, IV SCH ×11 (13:00→17:37)
[2019-01-03 18:57] LABS: Glucose,Whole Blood 150 mg/dL (75-99)
[2019-01-03] MEDS: SODIUM CHLORIDE 0.9% 1,000 ML IV SCH (20:30)
[2019-01-03] MEDS: traZODone HCL 50 MG TAB PO SCH (20:31)
[2019-01-03] MEDS ORDERED: FUROSEMIDE 10 MG/ML 4 ML VIAL IV SCH (21:00)
[2019-01-04 00:07] LABS: Glucose,Whole Blood 136 mg/dL (75-99)
[2019-01-04] MEDS: INSULIN ASPART (NovoLOG) 100 UNIT/ML VIAL SQ SCH ×4 (00:09→19:07)
[2019-01-04] MEDS: methylPREDNISolone SOD SUCCI 125 MG/2 ML VIAL IV SCH ×3 (00:09→16:41)
[2019-01-04] MEDS: PROPOFOL 1,000 MG in EMPTY BAG 1 BAG IV SCH ×6 (00:39→22:52)
[2019-01-04] MEDS: HYDROmorphone 1 MG/ML 1 ML SYRINGE IVP PRN ×6 (02:37→22:54)
[2019-01-04] MEDS: IPRATROPIUM-ALBUTEROL 3 ML NEB INHALATION SCH ×7 (03:43→22:57)
[2019-01-04 04:20] LABS: ABG Base Excess 16.6 mmol/L; ABG Oxygen Saturation 94.6 % (94-97); ABG PH 7.34 (7.35-7.45); ABG PO2 86 mmHg (83-108); ABG TCO2 45 mmol/L (19-24); Allen Test Performed? Yes
[2019-01-04 04:21] LABS: ABG HCO3 42 mmol/L (21-25); ABG PCO2 79 mmHg (35-45)
[2019-01-04] MEDS: ARTIFICIAL TEARS-HYPROMELLOSE DROPS 15 ML BTL BOTH EYES SCH ×5 (04:59→20:15)
[2019-01-04 05:05] LABS: African American GFR (CKD) >90 (>60 ml/min/1.73 sqM); Blood Urea Nitrogen 27 mg/dL (9-20); Calcium 8.5 mg/dL (8.4-10.2); Chloride 97 mmol/L (98-107); Glucose 157 mg/dL (74-99); Magnesium 2.5 mg/dL (1.6-2.3); Phosphorus 3.8 mg/dL (2.5-4.5); Sodium 140 mmol/L (137-145)
[2019-01-04 05:11] LABS: Anion Gap 1 mmol/L
[2019-01-04 05:12] LABS: Carbon Dioxide 42 mmol/L (22-30)
[2019-01-04 05:14] LABS: Anisocytosis Slight; HCT 34.2 % (39.0-53.0); HGB 10.3 gm/dL (13.0-17.5); Hypochromasia Marked; MCH 29.4 pg (25.0-35.0); MCV 97.9 fL (80.0-100.0); Macrocytosis Slight; Mean Platelet Volume 8.9; Platelet Count 127 k/uL (150-450); RBC 3.49 m/uL (4.30-5.90); RDW 18.6 % (11.5-15.5)
[2019-01-04 05:39] LABS: Band Neutrophils % 3 %; Neutrophils % (M) 82 %; Nucleated Red Blood Cells 0 /100 WBC (0-0); Total Cells Counted 100
[2019-01-04 05:50] LABS: Glucose,Whole Blood 156 mg/dL (75-99)
[2019-01-04] MEDS ORDERED: VANCOMYCIN TROUGH DUE 1 EACH MISC MISCELLANE ONE (06:00)
[2019-01-04] MEDS: VANCOMYCIN 1,250 MG in SODIUM CHLORIDE 0.9% 250 ML IVPB SCH ×3 (06:19→22:51)
[2019-01-04] MEDS: 1: MVI, ADULT NO.4 WITH VIT K 10 ML, TRACE (CONC-1ML/DOSE) 1 ML, CALCIUM GLUCONATE 1 GM, IV SCH ×12 (07:14→22:22)
[2019-01-04] MEDS: FORMOTEROL FUMARATE 20 MCG/2 ML NEBU INHALATION SCH ×2 (07:25→19:37)
[2019-01-04] MEDS: BUDESONIDE 1 MG/2 ML NEBU INHALATION SCH ×2 (07:25→19:37)
--- NOTE | 2019-01-04 07:51 | XR ---
EXAMINATION TYPE: XR chest 1V portable DATE OF EXAM: 01/04/2019 COMPARISON: Prior chest x-ray 01/03/2019 HISTORY: Intubated TECHNIQUE: Single frontal view of the chest is obtained. FINDINGS: Endotracheal tube is overlying the tracheal air column, Port-A-Cath and left jugular centr al venous catheter are stable. Gastric tube shows the distal tip above the level of the hemidiaphragm , there may be hiatal hernia present. Basilar increased density with blunting the costophrenic angles persists. Bilateral airspace disease, mixed interstitial pattern noted. No pneumothorax. IMPRESSION: Correlate for pneumonia, congestive heart failure, ARDS and interstitial pneumonitis
[2019-01-04] MEDS: MEROPENEM 1 GM in SODIUM CHLORIDE 0.9% 100 ML IVPB SCH ×2 (08:56→16:40)
[2019-01-04] MEDS: SENNOSIDES-DOCUSATE SODIUM 1 EACH TAB PO SCH ×2 (09:00→20:13)
[2019-01-04] MEDS: HEPARIN SODIUM,PORCINE 5,000 UNIT/ML 1 ML VIAL SQ SCH ×2 (09:02→16:40)
[2019-01-04] MEDS: PANTOPRAZOLE 40 MG/10 ML VIAL IVP SCH ×2 (09:04→20:15)
[2019-01-04] MEDS: FUROSEMIDE 10 MG/ML 4 ML VIAL IV SCH (09:08)
[2019-01-04] MEDS: CHLORHEXIDINE GLUCONATE 15 ML CUP MUCOUS MEM SCH ×2 (09:12→20:15)
[2019-01-04] MEDS: FLUCONAZOLE IN NACL,ISO-OSM 100 MG in SALINE 1 50ML.BAG IVPB SCH (09:17)
[2019-01-04] MEDS ORDERED: PHENYLEPHRINE-0.9% NACL SYG 1 MG/10 ML SYRINGE ONE (09:47)
[2019-01-04] MEDS ORDERED: ROCURONIUM BROMIDE 10 MG/ML 10 ML VIAL IV ONE (09:47)
[2019-01-04] MEDS ORDERED: fentaNYL (PF) 50 MCG/ML 2 ML AMP ONE (09:47)
[2019-01-04] MEDS ORDERED: LACTATED RINGERS 1,000 ML IV ONE (10:17)
--- NOTE | 2019-01-04 11:29 | P.PN ---
Subjective Progress Note Date: 01/04/19 I'm also covering Dr. Lockwood in this evaluation On 01/03/2019, the patient is still on a mechanical ventilator. I'm going to recommend proceeding with a tracheostomy tube today and I discussed this with the anesthesiologist in general surgery. I think it's important to proceed with a tracheostomy knowing that the patient seems to be vent dependent and he is not doing any significant progress over the past 3 days. He remains in the same mechanical ventilator setting and is in a volume cycled with a tidal volume of 380 at the rate of 34 with an FiO2 of 60% and PEEP of 12. Blood gases from [facility] was noted and there is no much room for improvement or weaning. His peak pressures around 36. Static airway pressures are 34. Unchanged from yesterday's evaluation. The pH is at 7.34 with a pCO2 of 79 and pO2 of 86. He has developed some metabolic alkalosis as the patient is being diuresis with IV Lasix. He is receiving Lasix 40 mg IV push every 12 hours. The neck fluid balance is -2.4 liters over the past 24 hours. The patient is developing a component of metabolic alkalosis. Diamox will be even to counteract this metabolic alkalosis. ET tube is in a good location. Chest x-ray findings are unchanged. Receiving TPN for nutritional support. Receiving IV Solu Medrol. Receiving a combination but open and vancomycin and Diflucan. Cardiac rhythm is sinus. He is afebrile. Remains sedated with propofol and paralyzed with Nimbex. No other significant policy change clerk the past 24 hours. The plan is to proceed with a tracheostomy tube insertion today Objective - Vital Signs Vital signs: Vital Signs Temp 97.6 F 01/04/19 04:00 Pulse 101 H 01/04/19 09:30 Resp 34 H 01/04/19 09:30 BP 108/68 01/03/19 18:30 Pulse Ox 92 L 01/04/19 09:30 Intake & Output 01/03/19 01/04/19 01/04/19 18:59 06:59 18:59 Intake Total 4052.146 1166.746 1102 Output Total 1720 3930 1187 Balance -339.807 -2083.254 -85 Weight 79.8 kg Intake: IV 1103 1466 1102 Calcium Gluconate 1 gm 70 Potassium Phosphate 15 mmol In Amino Acid 5%- D15w 1,000 ml @ 70 mls/hr IV .BY DURATION [facility] Rx#: [id number] Fluconazole in NaCl,Iso- 50 Osm 100 mg In Saline 1 50ml.bag @ 50 mls/hr IVPB DAILY [facility] Rx#:[id number] Meropenem 1 gm In Sodium 200 100 Chloride 0.9% 100 ml @ 200 mls/hr IVPB Q8HR [facility] Rx#:[id number] Mvi, Adult No.4 with Vit 70 770 280 K 10 ml Trace (Conc-1Ml/ Dose) 1 ml Calcium Gluconate 1 gm Potassium Phosphate 15 mmol In Amino Acid 5%-D15w 1,000 ml @ 70 mls/hr IV .BY DURATION [facility] Rx#: [id number] Mvi, Adult No.4 with Vit 140 K 10 ml Trace (Conc-1Ml/ Dose) 1 ml Sodium Acetate 35 meq Calcium Gluconate 1 gm In Amino Acid 5%- D15w 1,000 ml @ 70 mls/hr IV .BY DURATION [facility] Rx#: [id number] Mvi, Adult No.4 with Vit 70 70 K 10 ml Trace (Conc-1Ml/ Dose) 1 ml Sodium Acetate 35 meq Potassium Chloride 10 meq Potassium Phosphate 15 mmol Calcium Gluconate 1 gm In Amino Acid 5%-D15w 1,000 ml @ 30 mls/hr IV .Q24H [facility] Rx#:[id number] Sodium Chloride 0.9% 1, 220 240 60 000 ml @ 20 mls/hr IV . Q24H [facility] Rx#:[id number] Vanco 250 Vancomycin 1,250 mg In 250 Sodium Chloride 0.9% 250 ml @ 125 mls/hr IVPB Q8H [facility] Rx#:[id number] pressure bag 33 36 12 Intake, IV Titration 277.193 380.746 Amount Cisatracurium 200 mg In 76.049 168.473 Sodium Chloride 0.9% 180 ml @ 1 MCG/KG/MIN 4.758 mls/hr IV .Q24H [facility] Rx#: [id number] Norepinephrine 32 mg In 1.144 12.273 Sodium Chloride 0.9% 218 ml @ 0.05 MCG/KG/MIN 1. 807 mls/hr IV .Q24H [facility] Rx#:[id number] Propofol 1,000 mg In 200.000 200.000 Empty Bag 1 bag @ Titrate IV .Q0M [facility] Rx#: [id number] Output: Gastric Drainage 140 Urine 1720 3790 1185 Estimated Blood Loss 2 Other: Voiding Method Indwelling Catheter Indwelling Catheter # Voids 1 # Bowel Movements 1 ABP, PAP, CO, CI - Last Documented Arterial Blood Pressure 146/69 - Exam General: Intubated, sedated, paralyzed, calm and comfortable and symptoms with the mechanical ventilator. Orogastric and orotracheal tube are both in place. The patient also has a left IJ triple-lumen catheter and a Mediport over the anterior chest area. No evidence of any leaks around the oral tracheal tube at this point in time. Head: Normocytic, Atraumatic Neck: Supple, Neck was supple and without jugular venous distension, thyromegaly, or carotid bruits. Carotids were easily palpable bilaterally. There was no adenopathy., There is oropharyngeal candidiasis Mouth: No Lesions, No Thrush, the mucous membranes are extremely dry Eyes: Non-sclerotic No Palpable cervical, supraclavicular, axillary adenopathy Heart: Cardiac exam revealed the PMI to be normally situated and sized. The rhythm was regular and no extrasystoles were noted during several minutes of auscultation. The first and second heart sounds were normal and physiologic splitting of the second heart sound was noted. There were no murmurs, rubs, clicks, or gallops. Lungs: The patient is crackles in the mid and lower lung martínez bilaterally left base more than right. Vessels are equal and symmetrical otherwise. Abdomen: Soft, Non-Distended, Non-Tended, BSx4 Extremities: There is development of edema in the upper and lower extremity is bilaterally, there is some limited edema, pulses are equal and symmetrical in all 4 extremities without any cyanosis or clubbing. Neurological: An adequate neurologic exam cannot be done as the patient is currently sedated intubated paralyzed Psych: Unable to perform due to the above-mentioned Examination of the skin revealed no evidence of significant rashes, suspicious appearing nevi or other concerning lesions. - Labs CBC & Chem 7: 01/04/19 04:26 01/04/19 04:26 Labs: Abnormal Lab Results - Last 24 Hours (Table) 01/03/19 01/03/19 01/03/19 Range/Units 12:10 12:45 18:54 WBC (3.8-10.6) k/uL RBC (4.30-5.90) m/uL Hgb (13.0-17.5) gm/dL Hct (39.0-53.0) % MCHC (31.0-37.0) g/dL RDW (11.5-15.5) % Plt Count (150-450) k/uL Neutrophils # (Manual) (1.3-7.7) k/uL ABG pH 7.50 H (7.35-7.45) ABG pCO2 64 H (35-45) mmHg ABG HCO3 50 H* (21-25) mmol/L ABG Total CO2 52 H (19-24) mmol/L Chloride (98-107) mmol/L Carbon Dioxide (22-30) mmol/L BUN (9-20) mg/dL Creatinine (0.66-1.25) mg/dL Glucose (74-99) mg/dL POC Glucose (mg/dL) 106 H 150 H (75-99) mg/dL Magnesium (1.6-2.3) mg/dL 01/04/19 01/04/19 01/04/19 Range/Units 00:04 04:14 04:26 WBC 12.0 H (3.8-10.6) k/uL RBC 3.49 L (4.30-5.90) m/uL Hgb 10.3 L (13.0-17.5) gm/dL Hct 34.2 L (39.0-53.0) % MCHC 30.0 L (31.0-37.0) g/dL RDW 18.6 H (11.5-15.5) % Plt Count 127 L (150-450) k/uL Neutrophils # (Manual) 10.20 H (1.3-7.7) k/uL ABG pH 7.34 L (7.35-7.45) ABG pCO2 79 H* (35-45) mmHg ABG HCO3 42 H* (21-25) mmol/L ABG Total CO2 45 H (19-24) mmol/L Chloride (98-107) mmol/L Carbon Dioxide (22-30) mmol/L BUN (9-20) mg/dL Creatinine (0.66-1.25) mg/dL Glucose (74-99) mg/dL POC Glucose (mg/dL) 136 H (75-99) mg/dL Magnesium (1.6-2.3) mg/dL 01/04/19 01/04/19 Range/Units 04:26 05:47 WBC (3.8-10.6) k/uL RBC (4.30-5.90) m/uL Hgb (13.0-17.5) gm/dL Hct (39.0-53.0) % MCHC (31.0-37.0) g/dL RDW (11.5-15.5) % Plt Count (150-450) k/uL Neutrophils # (Manual) (1.3-7.7) k/uL ABG pH (7.35-7.45) ABG pCO2 (35-45) mmHg ABG HCO3 (21-25) mmol/L ABG Total CO2 (19-24) mmol/L Chloride 97 L (98-107) mmol/L Carbon Dioxide 42 H* (22-30) mmol/L BUN 27 H (9-20) mg/dL Creatinine 0.60 L (0.66-1.25) mg/dL Glucose 157 H (74-99) mg/dL POC Glucose (mg/dL) 156 H (75-99) mg/dL Magnesium 2.5 H (1.6-2.3) mg/dL Microbiology - Last 24 Hours (Table) 12/31/18 20:40 Gram Stain - Final Sputum Sputum Culture - Final Fabi albicans Fabi glabrata Assessment and Plan Plan: 1 acute hypoxic respiratory failure/ARDS with diffuse bilateral pulmonary infiltrates currently intubated on a mechanical ventilator. The patient is sedated. The patient is paralyzed. The patient is on low volume ventilation with permissive hypercapnia and secondary metabolic alkalosis which has gotten worse and the patient is being diuresis with IV Lasix. Blood gas was noted. Chest x-ray was noted. No improvement in the airway pressures including peak and static. No improvement a chest x-ray findings. No significant change in his oxygenation. We are going to proceed with a tracheostomy tube insertion. 2 metastatic esophageal cancer currently on FOLFOX systemic chemotherapy might the patient has local recurrence in his stomach and metastases to his lumbar spine 3 recurrent aspiration with poor tolerability of oral intake and the patient is having frequent emesis 4 patient remains nothing by mouth, unable to meet caloric requirements secondar y to above, currently on TPN for nutritional support 5 leukocytosis,, improved 6 oropharyngeal candidiasis, currently on IV Diflucan 7 severe respiratory acidosis improved with some further adjustments in the tidal volume and the respiratory rate. Currently the patient is undergoing permissive hypercapnia. 8 metabolic alkalosis. 2 hypercapnic respiratory failure 9 generalized anxiety disorder 10 shock with profound hypotension, recovered and the patient is currently being diuresed with IV Lasix attempting a negative fluid balance. Plan Condition is extremely critical. Continue same treatment. Drop down the IV Lasix to once a day. Give the patient Diamox to 250 mg every 12 hours. Keep the patient sedated. Keep the patient paralyzed. Continue TPN. Continue IV Solu Medrol. Continue same antibiotic coverage. We will going to proceed with a tracheostomy tube today and further recommendations are to follow. Family has been updated on the condition. Discussed the case with anesthesia. Discussed the case with general surgery. Condition is still critical. We'll continue to follow and make further recommendations. Evaluation was done more than 30 minutes. There is a critically care evaluation.
[2019-01-04 12:03] LABS: Glucose,Whole Blood 167 mg/dL (75-99)
[2019-01-04 13:31] LABS: ABG Base Excess 11.6 mmol/L; ABG HCO3 38 mmol/L (21-25); ABG Oxygen Saturation 93.8 % (94-97); ABG PH 7.32 (7.35-7.45); ABG PO2 82 mmHg (83-108); ABG TCO2 40 mmol/L (19-24); Allen Test Performed? Yes
[2019-01-04 13:34] LABS: ABG PCO2 73 mmHg (35-45)
[2019-01-04] MEDS: LORazepam 2 MG/ML INJ IV PRN ×2 (14:26→22:35)
--- NOTE | 2019-01-04 14:34 | XR ---
EXAMINATION TYPE: XR chest 1V portable DATE OF EXAM: 01/04/2019 COMPARISON: 01/04/2019 INDICATION: Status post tracheostomy TECHNIQUE: Single frontal view of the chest is obtained. FINDINGS: The heart size is normal. The pulmonary vasculature is normal. Bibasilar infiltrates are present. Endotracheal tube is been removed. Tracheostomy is been placed at T2. Tip is above the raul. Left c entral venous catheter is present with tip in superior vena cava region. A right central venous anselmo ter port is present with the tip near the proximal right atrium. Small left pleural effusion is prese nt. IMPRESSION: 1. Bibasilar infiltrates and small left pleural effusion. 2. Lines and catheters discussed above. 3. Tracheostomy tube placement
[2019-01-04] MEDS: CISATRACURIUM 200 MG in SODIUM CHLORIDE 0.9% 180 ML IV SCH (16:36)
[2019-01-04 18:15] LABS: Glucose,Whole Blood 128 mg/dL (75-99)
[2019-01-04] MEDS: traZODone HCL 50 MG TAB PO SCH (20:13)
[2019-01-04] MEDS: SODIUM CHLORIDE 0.9% 1,000 ML IV SCH (20:15)
[2019-01-04 20:56] LABS: ABG Base Excess 9.4 mmol/L; ABG HCO3 37 mmol/L (21-25); ABG Oxygen Saturation 92.5 % (94-97); ABG PH 7.25 (7.35-7.45); ABG PO2 77 mmHg (83-108); ABG TCO2 39 mmol/L (19-24); Allen Test Performed? Yes
[2019-01-04 21:06] LABS: ABG PCO2 84 mmHg (35-45)
[2019-01-04] MEDS ORDERED: 1: MVI, ADULT NO.4 WITH VIT K 10 ML, TRACE (CONC-1ML/DOSE) 1 ML, CALCIUM GLUCONATE 1 GM, IV SCH ×7 (23:00)
[2019-01-04 23:53] LABS: Glucose,Whole Blood 141 mg/dL (75-99)
[2019-01-05] MEDS: HEPARIN SODIUM,PORCINE 5,000 UNIT/ML 1 ML VIAL SQ SCH ×4 (00:19→23:59)
[2019-01-05] MEDS: methylPREDNISolone SOD SUCCI 125 MG/2 ML VIAL IV SCH ×4 (00:19→23:57)
[2019-01-05] MEDS: MEROPENEM 1 GM in SODIUM CHLORIDE 0.9% 100 ML IVPB SCH ×4 (00:19→23:57)
[2019-01-05] MEDS: INSULIN ASPART (NovoLOG) 100 UNIT/ML VIAL SQ SCH ×5 (00:20→23:57)
[2019-01-05] MEDS: ARTIFICIAL TEARS-HYPROMELLOSE DROPS 15 ML BTL BOTH EYES SCH ×7 (00:21→23:59)
[2019-01-05] MEDS: HYDROmorphone 1 MG/ML 1 ML SYRINGE IVP PRN ×6 (00:27→20:31)
[2019-01-05] MEDS: PROPOFOL 1,000 MG in EMPTY BAG 1 BAG IV SCH ×7 (01:42→21:00)
[2019-01-05] MEDS: NOREPINEPHRINE 32 MG in SODIUM CHLORIDE 0.9% 218 ML IV SCH (01:45)
[2019-01-05] MEDS: IPRATROPIUM-ALBUTEROL 3 ML NEB INHALATION SCH ×6 (02:45→23:25)
[2019-01-05 03:53] LABS: ABG Base Excess 7.7 mmol/L; ABG HCO3 36 mmol/L (21-25); ABG Oxygen Saturation 92.2 % (94-97); ABG PO2 81 mmHg (83-108); ABG TCO2 39 mmol/L (19-24)
[2019-01-05 04:19] LABS: Allen Test Performed? no
[2019-01-05 04:55] LABS: Anisocytosis Slight; Basophils # (A) 0.1 k/uL (0-0.2); Basophils % (A) 1 %; Eosinophils # (A) 0.1 k/uL (0-0.7); Eosinophils % (A) 1 %; HCT 37.1 % (39.0-53.0); HGB 10.7 gm/dL (13.0-17.5); Hypochromasia Marked; Lymphocytes # (A) 0.3 k/uL (1.0-4.8); Lymphocytes % (A) 1 %; MCHC 28.9 g/dL (31.0-37.0); MCV 100.5 fL (80.0-100.0); Macrocytosis Slight; Mean Platelet Volume 9.5; Monocytes # (A) 0.5 k/uL (0-1.0); Monocytes % (A) 2 %; Neutrophils % (A) 95 %; Platelet Count 154 k/uL (150-450); RBC 3.69 m/uL (4.30-5.90); RDW 18.3 % (11.5-15.5); WBC 21.1 k/uL (3.8-10.6)
[2019-01-05 05:16] LABS: African American GFR (CKD) >90 (>60 ml/min/1.73 sqM); Blood Urea Nitrogen 27 mg/dL (9-20); Chloride 104 mmol/L (98-107); Glucose 145 mg/dL (74-99); Sodium 142 mmol/L (137-145)
[2019-01-05 05:17] LABS: Magnesium 2.5 mg/dL (1.6-2.3); Phosphorus 3.4 mg/dL (2.5-4.5); Potassium 4.7 mmol/L (3.5-5.1)
[2019-01-05] MEDS: LORazepam 2 MG/ML INJ IV PRN (05:46)
[2019-01-05 05:49] LABS: Anion Gap 0 mmol/L; Calcium 8.8 mg/dL (8.4-10.2); Carbon Dioxide 38 mmol/L (22-30)
[2019-01-05 05:50] LABS: Glucose,Whole Blood 137 mg/dL (75-99)
[2019-01-05] MEDS ORDERED: VANCOMYCIN TROUGH DUE 1 EACH MISC MISCELLANE ONE (06:00)
[2019-01-05] MEDS: BUDESONIDE 1 MG/2 ML NEBU INHALATION SCH ×2 (07:11→19:25)
[2019-01-05] MEDS: FORMOTEROL FUMARATE 20 MCG/2 ML NEBU INHALATION SCH ×2 (07:11→19:25)
[2019-01-05] MEDS: VANCOMYCIN 1,250 MG in SODIUM CHLORIDE 0.9% 250 ML IVPB SCH ×3 (07:24→23:22)
--- NOTE | 2019-01-05 08:28 | XR ---
EXAMINATION TYPE: XR chest 1V portable DATE OF EXAM: 01/05/2019 COMPARISON: 01/04/2019 INDICATION: Tube placement TECHNIQUE: Single frontal view of the chest is obtained. FINDINGS: The heart size is normal. The pulmonary vasculature is normal. Mild increased bibasilar infiltrates are present. Small left pleural effusion is present. These findi ngs are stable from the comparison. Tracheostomy tube left central venous catheter and right central venous port are stable in position IMPRESSION: 1. Bibasilar infiltrates and small left pleural effusion stable from comparison
[2019-01-05 08:41] LABS: ABG Base Excess 10.4 mmol/L; ABG HCO3 38 mmol/L (21-25); ABG Oxygen Saturation 94.4 % (94-97); ABG PH 7.26 (7.35-7.45); ABG PO2 81 mmHg (83-108); ABG TCO2 40 mmol/L (19-24); Allen Test Performed? Yes
[2019-01-05] MEDS: FUROSEMIDE 10 MG/ML 4 ML VIAL IV SCH (09:03)
[2019-01-05] MEDS: CHLORHEXIDINE GLUCONATE 15 ML CUP MUCOUS MEM SCH ×2 (09:03→20:58)
[2019-01-05] MEDS: SENNOSIDES-DOCUSATE SODIUM 1 EACH TAB PO SCH ×2 (09:03→19:45)
[2019-01-05] MEDS: PANTOPRAZOLE 40 MG/10 ML VIAL IVP SCH ×2 (09:03→20:59)
[2019-01-05] MEDS: FLUCONAZOLE IN NACL,ISO-OSM 100 MG in SALINE 1 50ML.BAG IVPB SCH (11:06)
--- NOTE | 2019-01-05 11:24 | P.PN ---
Subjective Progress Note Date: 01/05/19 I'm also covering Dr. Lockwood in this evaluation On 01/05/2019, I'm seeing this patient for a follow-up. The patient is post tracheostomy tube insertion that was done yesterday without any complications. We are trying to wean him off the Nimbex for now. We were able to get it off yesterday yet briefly he required minimal paralysis to maintain synchrony. Note that this morning, the patient was quite comfortable. I changed him to VC loss mode with a tidal volume of 400 and the rate of 34 with an FiO2 of 55% and PEEP of 12. He is I time is 1. the patient is having some leaks around the trac heostomy tube and he is losing some volumes. This is probably in the form of 50 mL and for that reason I increased the tidal volume to counteract for that. His static pressures remains below 35. His blood gases on the current vent settings shows a pH of 7. episodes of 84 and pO2 of 81. The patient's chest x-ray shows no changes. Tracheostomy tube is in a good location. White cell count is up to 21. Nevertheless he does not have any fever. The orogastric tube has been removed. The patient has TPN for nutritional support. We will still being diuresis with IV Lasix. He was given Diamox for metabolic alkalosis. His serum bicarbs at 38. He is on IV Lasix. The fluid balance is -2.4 L over the past 24 hours. The patient is receiving Lasix 40 mg IV push every 24 hours. He remains on broad-spectrum antibiotics. He remains on IV Solu-Medrol. His cardiac rhythm is sinus. He is on a combination of propofol for sedation index was being is less for paralysis. Tracheostomy tube is in place for now. This is a Bivona tracheostomy tube #8 with a foamy cuff Objective - Vital Signs Vital signs: Vital Signs Temp 98.0 F 01/05/19 08:00 Pulse 98 01/05/19 11:16 Resp 35 H 01/05/19 11:00 BP 108/68 01/03/19 18:30 Pulse Ox 92 L 01/05/19 11:00 Intake & Output 01/04/19 01/05/19 01/05/19 18:59 06:59 18:59 Intake Total 3208.327 1913.917 707.738 Output Total 2617 1605 940 Balance 591.327 308.917 -232.262 Weight 79.8 kg Intake: IV 2800 1466 615 Fluconazole in NaCl,Iso- 50 Osm 100 mg In Saline 1 50ml.bag @ 50 mls/hr IVPB DAILY [facility] Rx#:[id number] Meropenem 1 gm In Sodium 100 100 Chloride 0.9% 100 ml @ 200 mls/hr IVPB Q8HR [facility] Rx#:[id number] Mvi, Adult No.4 with Vit 1194 840 350 K 10 ml Trace (Conc-1Ml/ Dose) 1 ml Calcium Gluconate 1 gm Potassium Chloride 20 meq Sodium Chloride 2.5MEQ/ml Vial 30 meq In Amino Acid 5%- D15w 1,000 ml @ 70 mls/hr IV .BY DURATION [facility] Rx#: [id number] Mvi, Adult No.4 with Vit 280 K 10 ml Trace (Conc-1Ml/ Dose) 1 ml Calcium Gluconate 1 gm Potassium Phosphate 15 mmol In Amino Acid 5%-D15w 1,000 ml @ 70 mls/hr IV .BY DURATION [facility] Rx#: [id number] Mvi, Adult No.4 with Vit 70 K 10 ml Trace (Conc-1Ml/ Dose) 1 ml Sodium Acetate 35 meq Calcium Gluconate 1 gm In Amino Acid 5%- D15w 1,000 ml @ 70 mls/hr IV .BY DURATION [facility] Rx#: [id number] Sodium Chloride 0.9% 1, 220 240 100 000 ml @ 20 mls/hr IV . Q24H [facility] Rx#:[id number] Vancomycin 1,250 mg In 250 250 Sodium Chloride 0.9% 250 ml @ 125 mls/hr IVPB Q8H [facility] Rx#:[id number] pressure bag 36 36 15 Intake, IV Titration 408.327 447.917 92.738 Amount Cisatracurium 200 mg In 208.327 60.587 4.758 Sodium Chloride 0.9% 180 ml @ 1 MCG/KG/MIN 4.758 mls/hr IV .Q24H [facility] Rx#: [id number] Propofol 1,000 mg In 200.000 387.330 87.98 Empty Bag 1 bag @ Titrate IV .Q0M [facility] Rx#: [id number] Output: Urine 2615 1605 940 Estimated Blood Loss 2 Other: Voiding Method Indwelling Catheter Indwelling Catheter Indwelling Catheter ABP, PAP, CO, CI - Last Documented Arterial Blood Pressure 140/63 - Exam General: The patient has a Bivona #8 tracheostomy tube in his neck. There is some minimal amount of leak around the tracheostomy tube. Otherwise the patient is calm and comfortable and symptoms with the mechanical ventilator. Orogastric and orotracheal tube are both in place. The patient also has a left IJ triple- lumen catheter and a Mediport over the anterior chest area. No evidence of any leaks around the oral tracheal tube at this point in time. Head: Normocytic, Atraumatic Neck: Supple, Neck was supple and without jugular venous distension, thyromegaly , or carotid bruits. Carotids were easily palpable bilaterally. There was no adenopathy., There is oropharyngeal candidiasis Mouth: No Lesions, No Thrush, the mucous membranes are extremely dry Eyes: Non-sclerotic No Palpable cervical, supraclavicular, axillary adenopathy Heart: Cardiac exam revealed the PMI to be normally situated and sized. The rhythm was regular and no extrasystoles were noted during several minutes of auscultation. The first and second heart sounds were normal and physiologic splitting of the second heart sound was noted. There were no murmurs, rubs, clicks, or gallops. Lungs: The patient is crackles in the mid and lower lung martínez bilaterally left base more than right. Vessels are equal and symmetrical otherwise. Abdomen: Soft, Non-Distended, Non-Tended, BSx4 Extremities: There is development of edema in the upper and lower extremity is bilaterally, there is some limited edema, pulses are equal and symmetrical in all 4 extremities without any cyanosis or clubbing. Neurological: An adequate neurologic exam cannot be done as the patient is currently sedated intubated paralyzed Psych: Unable to perform due to the above-mentioned Examination of the skin revealed no evidence of significant rashes, suspicious appearing nevi or other concerning lesions. - Labs CBC & Chem 7: 01/05/19 04:50 01/05/19 04:50 Labs: Abnormal Lab Results - Last 24 Hours (Table) 01/04/19 01/04/19 01/04/19 Range/Units 11:59 13:21 18:12 WBC (3.8-10.6) k/uL RBC (4.30-5.90) m/uL Hgb (13.0-17.5) gm/dL Hct (39.0-53.0) % MCV (80.0-100.0) fL MCHC (31.0-37.0) g/dL RDW (11.5-15.5) % Neutrophils # (1.3-7.7) k/uL Lymphocytes # (1.0-4.8) k/uL ABG pH 7.32 L (7.35-7.45) ABG pCO2 73 H* (35-45) mmHg ABG pO2 82 L (83-108) mmHg ABG HCO3 38 H (21-25) mmol/L ABG Total CO2 40 H (19-24) mmol/L ABG O2 Saturation 93.8 L (94-97) % Carbon Dioxide (22-30) mmol/L BUN (9-20) mg/dL Creatinine (0.66-1.25) mg/dL Glucose (74-99) mg/dL POC Glucose (mg/dL) 167 H 128 H (75-99) mg/dL Magnesium (1.6-2.3) mg/dL Albumin (3.5-5.0) g/dL 01/04/19 01/04/19 01/05/19 Range/Units 20:53 23:49 03:51 WBC (3.8-10.6) k/uL RBC (4.30-5.90) m/uL Hgb (13.0-17.5) gm/dL Hct (39.0-53.0) % MCV (80.0-100.0) fL MCHC (31.0-37.0) g/dL RDW (11.5-15.5) % Neutrophils # (1.3-7.7) k/uL Lymphocytes # (1.0-4.8) k/uL ABG pH 7.25 L 7.17 L* (7.35-7.45) ABG pCO2 84 H* 100 H* (35-45) mmHg ABG pO2 77 L 81 L (83-108) mmHg ABG HCO3 37 H 36 H (21-25) mmol/L ABG Total CO2 39 H 39 H (19-24) mmol/L ABG O2 Saturation 92.5 L 92.2 L (94-97) % Carbon Dioxide (22-30) mmol/L BUN (9-20) mg/dL Creatinine (0.66-1.25) mg/dL Glucose (74-99) mg/dL POC Glucose (mg/dL) 141 H (75-99) mg/dL Magnesium (1.6-2.3) mg/dL Albumin (3.5-5.0) g/dL 01/05/19 01/05/19 01/05/19 Range/Units 04:50 04:50 04:50 WBC 21.1 H (3.8-10.6) k/uL RBC 3.69 L (4.30-5.90) m/uL Hgb 10.7 L (13.0-17.5) gm/dL Hct 37.1 L (39.0-53.0) % MCV 100.5 H (80.0-100.0) fL MCHC 28.9 L (31.0-37.0) g/dL RDW 18.3 H (11.5-15.5) % Neutrophils # 20.0 H (1.3-7.7) k/uL Lymphocytes # 0.3 L (1.0-4.8) k/uL ABG pH (7.35-7.45) ABG pCO2 (35-45) mmHg ABG pO2 (83-108) mmHg ABG HCO3 (21-25) mmol/L ABG Total CO2 (19-24) mmol/L ABG O2 Saturation (94-97) % Carbon Dioxide 38 H (22-30) mmol/L BUN 27 H (9-20) mg/dL Creatinine 0.53 L (0.66-1.25) mg/dL Glucose 145 H (74-99) mg/dL POC Glucose (mg/dL) (75-99) mg/dL Magnesium 2.5 H (1.6-2.3) mg/dL Albumin 2.8 L (3.5-5.0) g/dL 01/05/19 01/05/19 Range/Units 05:48 08:38 WBC (3.8-10.6) k/uL RBC (4.30-5.90) m/uL Hgb (13.0-17.5) gm/dL Hct (39.0-53.0) % MCV (80.0-100.0) fL MCHC (31.0-37.0) g/dL RDW (11.5-15.5) % Neutrophils # (1.3-7.7) k/uL Lymphocytes # (1.0-4.8) k/uL ABG pH 7.26 L (7.35-7.45) ABG pCO2 84 H* (35-45) mmHg ABG pO2 81 L (83-108) mmHg ABG HCO3 38 H (21-25) mmol/L ABG Total CO2 40 H (19-24) mmol/L ABG O2 Saturation (94-97) % Carbon Dioxide (22-30) mmol/L BUN (9-20) mg/dL Creatinine (0.66-1.25) mg/dL Glucose (74-99) mg/dL POC Glucose (mg/dL) 137 H (75-99) mg/dL Magnesium (1.6-2.3) mg/dL Albumin (3.5-5.0) g/dL Assessment and Plan Plan: 1 acute hypoxic respiratory failure/ARDS with diffuse bilateral pulmonary infiltrates currently intubated on a mechanical ventilator. The patient is postop tracheostomy tube insertion and the patient has a #[address] Bivona [address] tube in place. Necessity ventilator changes been done. Currently the patient is in a FiO2 of 55% with a PEEP of 12. He is able to maintain adequate oxygenation and ventilation. We'll attempt to completely discontinue the Prilo sec for now. No may need to use fentanyl in combination with propofol to achieve the sedation. The chest x-ray findings are essentially unchanged for now. He remains hemodynamics is stable. 2 metastatic esophageal cancer currently on FOLFOX systemic chemotherapy might the patient has local recurrence in his stomach and metastases to his lumbar spine 3 recurrent aspiration with poor tolerability of oral intake and the patient is having frequent emesis 4 patient remains nothing by mouth, unable to meet caloric requirements secondary to above, currently on TPN for nutritional support 5 leukocytosis, 6 oropharyngeal candidiasis, currently on IV Diflucan 7 severe respiratory acidosis improved with some further adjustments in the tidal volume and the respiratory rate. Currently the patient is undergoing permissive hypercapnia. 8 metabolic alkalosis chest secondary to hypercapnic respiratory failure. The patient also developed worsening metabolic alkalosis because of diuresis and the patient was given Diamox. 9 generalized anxiety disorder 10 shock with profound hypotension, recovered and the patient is currently being diuresed with IV Lasix attempting a negative fluid balance. Plan Condition is extremely critical. Continue same treatment. Drop down the IV Lasix to once a day. Continue TPN. Continue same antibiotic coverage. Continue IV Solu-Medrol. Necessity vent changes were done. Repeat chest x-ray in the morning. Attempt to wean off and completely discontinue the Nimbex and will use fentanyl in combination with propofol for sedation. We'll continue to follow. Condition is extremely critical patient's outcome is poor baseline above-mentioned comorbidities. This critically care evaluation was done and more than 30 minutes. Time with Patient: Greater than 30
--- NOTE | 2019-01-05 11:50 | XR ---
EXAMINATION TYPE: XR chest 1V DATE OF EXAM: 01/05/2019 COMPARISON: 01/05/2019 earlier exam INDICATION: Trach placement TECHNIQUE: Single frontal view of the chest is obtained. FINDINGS: The heart size is normal. The pulmonary vasculature is normal. Mild bibasilar infiltrates are present. Small loculated effusion may be on the left. Port is present on the right with the tip in the proximal right atrium. Left central venous catheter is present with the tip in superior vena cava region. Tracheostomy tube is in the midline. Tip is 4.7 cm above the raul. IMPRESSION: 1. Bibasilar infiltrates. Small left and minimal right pleural effusions may be present. 2. Tracheostomy tube appears in the midline. 3. Lines and catheters discussed above
--- NOTE | 2019-01-05 12:10 | P.PN ---
Subjective PER MY SEAMER This is a 48-year-old gentleman with history of esophageal cancer, completed radiation and chemotherapy, history of gastric pull-through, recent biopsy reporting adenocarcinoma with chemotherapy resumed. T-max on admission 100.3, WBC 14.6, neutrophils normal, hemoglobin ,platelets, electrolytes essentially normal.Currently T-max 100.2, WBC improving, down to 12.4.. Maintained on IV fluid hydration of D5.45 MLS per hour, cefepime, vancomycin. Speech consulted to evaluate for silent aspiration(prior history of PEG tube which has been discontinued). Chest x-ray reported new multifocal airspace disease possible multifocal pneumonia versus pulmonary edema. F/U chest x-ray this morning with no significant change. On admission patient had been satting high 90s on room air. During the afternoon patient sats decreased to 93-94%. Last night, patient desatted to 70s to 80s %, A teamed called, received a dose of Lasix 40 IV push and placed on BiPAP. BiPAP weaned off currently on 15 L high flow nasal cannula this morning, maintaining O2 sats of 93%. No further nausea vomiting or diarrhea. Tolerating clear liquid diet. 12/26/2018 Tested negative for influenza, CT negative for PE, received a couple doses of Lasix for potential pulmonary edema, Swallow evaluation per speech therapy with no aspiration observed, universal aspiration precautions recommended..During the night, patient desatted, did not respond to BiPAP, t ransferred to ICU and placed on Airvo. Maintaining O2 sats of low 90s on 80% airvo. Maintained on IV antibiotics of vancomycin, Maxipime as per infectious disease. T-max 100.4,WBC WNL. Preliminary blood cultures negative at 24 hours .Continues on nebulized bronchodilators. Feels better this morning. BY DR Louis 12/27/2018: She remains on high flow nasal cannula oxygen. Pulse ox is 92%. He remains on IV vancomycin plus Maxipime for antibiotic coverage. Solu-Medrol was started yesterday and seems to help. He remains nothing by mouth for suspected chronic aspiration. His is at bedside. Chest x-ray today shows worsening interstitial airspace disease. Clinically he feels better. Staff report he is doing better. 12/28/2018: Patient's chest x-ray shortness of breath continue worsen. He is unable to move significantly not descending. He remains on Airvo. His remains at bedside. I discussed this case with Dr. Wade, he is considering bronchoscopy, but fears that he would end up being intubated and unable to ween.Exact cause of his symptoms are unknown without multifactorial due to aspiration pneumonia, chemical pneumonitis due to chemotherapy, and other factors. 12/29/2018 Maintained on vancomycin and cefepime as per ID. Remains airvo dependent, maintaining O2 sats of 95% on 60%. chest x-ray reporting stable bilateral pneumonia, ARDS, or pulmonary edema; diffuse increase in opacification to the right lung. Recurrent emesis , aspiration risks changed to NPO, TPN ordered. Blood sugars controlled. Oral thrush, Diflucan initiated. T-max 99.9, WBC down to 15.1. PER MY SEAMER 12/30/2018 respiratory status continued to deteriorate yesterday and patient required intubation yesterday afternoon. Chest x-ray reporting slight improvement in diffuse pulmonary edema, persistent interstitial opacity's bilaterally right more than left, bibasilar atelectasis. ABGs reflected severe respiratory acidosis this morning. FiO2 has been weaned down to 70%, PEEP has been weaned down to 14. Mild sinus tachycardia. Currently on pressor support of Levophed 40 mcgs, and on chemical paralysis with Nimbex. Right pupil fixed and dilated, unstable at this time for transfer to CT. potassium elevated at 6.2 received sodium bicarb D50, insulin, down to 5.8. Afebrile, White count up to 52, on Merrem ,Vancomycin and Diflucan. Repeat cultures sent. Maintained on TPN. Continues on nebulized bronchodilators, IV steroids 12/31/18 Maintained on Nimbex drip, ABGs improved with FiO2 decreased to 50% and PEEP down to 12%,cuff leak resolved with ETT repositioned.Levophed weaned down to 2 mcgs. Maintained on TPN. Continues on nebulized bronchodilators, IV steroids. Aggressive fluid resuscitation decreased, positive fluid balance with extremity edema .Afebrile,cultures negative. 01/01/2019 sputum culture report and Fabi glabrata and Fabi albicans, repeat sputum culture pending. Maintained on IV antibiotics of vancomycin and Merrem.afebrile,WBC decreased to 12.7.Attempted Nimbex weaning, not tolerated, peak pressure reading, and oxygenating, desatted into the 80s.Nimbex resumed. patient was maintaining O2 sats in the high 80s, ABGs noted, including PO2 of 67. Vent changes: Rate decreased, FiO2 increased to 60%,complete maintained and 12. chest x-ray reporting mild improvement of bibasilar infiltrates. IV fluids decreased yesterday,continues on 0.9 at KVO, as well as TPN.24 hour I&O reflecting a negative fluid balance.Positive bowel movement this morning. 01/02/2019 Remains vent dependent on FiO2 of 60%/+12 Peep. Maintained on Nimbex and Diprovan. Dr. Padilla consulted regarding tracheostomy. Telemetry sinus rhythm to sinus tach. BY DR Louis 01/03/2019: Patient remains in the intensive care unit, intubated, sedated and mechanically ventilated. His current PEEP is 12. FiO2 is still 60%. HEENT been able to wean off the paralytic agent. He remains on fluconazole, meropenem and vancomycin for antibiotic coverage. His is at bedside. Telemetry continues to show sinus rhythm. Achy ostomy is planned for the near future based on his status. He is slightly improved today compared to yesterday. 01/05/2019: Patient remains in intensive care unit. He is sedated and paralyzed once again. He remains on mechanical ventilation, now through the tracheostomy tube. Tracheostomy was placed yesterday. His is at bedside, care disc ussed with her briefly. ICU nurse was also present. He remains on fluconazole, meropenem, and vancomycin for antibiotic coverage. propofol, Cistacuium and fentanyl for sedation and paralyzation. He also is now on TPN Objective - Vital Signs Vital signs: Vital Signs Temp 98.0 F 01/05/19 08:00 Pulse 98 01/05/19 11:16 Resp 35 H 01/05/19 11:00 BP 108/68 01/03/19 18:30 Pulse Ox 92 L 01/05/19 11:00 Intake & Output 01/04/19 01/05/19 01/05/19 18:59 06:59 18:59 Intake Total 3208.327 1913.917 707.738 Output Total 2617 1605 940 Balance 591.327 308.917 -232.262 Weight 79.8 kg Intake: IV 2800 1466 615 Fluconazole in NaCl,Iso- 50 Osm 100 mg In Saline 1 50ml.bag @ 50 mls/hr IVPB DAILY [facility] Rx#:[id number] Meropenem 1 gm In Sodium 100 100 Chloride 0.9% 100 ml @ 200 mls/hr IVPB Q8HR [facility] Rx#:[id number] Mvi, Adult No.4 with Vit 1194 840 350 K 10 ml Trace (Conc-1Ml/ Dose) 1 ml Calcium Gluconate 1 gm Potassium Chloride 20 meq Sodium Chloride 2.5MEQ/ml Vial 30 meq In Amino Acid 5%- D15w 1,000 ml @ 70 mls/hr IV .BY DURATION [facility] Rx#: [id number] Mvi, Adult No.4 with Vit 280 K 10 ml Trace (Conc-1Ml/ Dose) 1 ml Calcium Gluconate 1 gm Potassium Phosphate 15 mmol In Amino Acid 5%-D15w 1,000 ml @ 70 mls/hr IV .BY DURATION [facility] Rx#: [id number] Mvi, Adult No.4 with Vit 70 K 10 ml Trace (Conc-1Ml/ Dose) 1 ml Sodium Acetate 35 meq Calcium Gluconate 1 gm In Amino Acid 5%- D15w 1,000 ml @ 70 mls/hr IV .BY DURATION [facility] Rx#: [id number] Sodium Chloride 0.9% 1, 220 240 100 000 ml @ 20 mls/hr IV . Q24H [facility] Rx#:[id number] Vancomycin 1,250 mg In 250 250 Sodium Chloride 0.9% 250 ml @ 125 mls/hr IVPB Q8H [facility] Rx#:[id number] pressure bag 36 36 15 Intake, IV Titration 408.327 447.917 92.738 Amount Cisatracurium 200 mg In 208.327 60.587 4.758 Sodium Chloride 0.9% 180 ml @ 1 MCG/KG/MIN 4.758 mls/hr IV .Q24H [facility] Rx#: [id number] Propofol 1,000 mg In 200.000 387.330 87.98 Empty Bag 1 bag @ Titrate IV .Q0M [facility] Rx#: [id number] Output: Urine 2615 1605 940 Estimated Blood Loss 2 Other: Voiding Method Indwelling Catheter Indwelling Catheter Indwelling Catheter ABP, PAP, CO, CI - Last Documented Arterial Blood Pressure 140/63 - Exam HEENT: Conjunctivae normal. Pupils equal, oral mucosa dry NECK: Supple, No JVD, tracheostomy tube is intact CARDIOVASCULAR: S1, S2 regular. Sinus rhythm at this time No murmur, no rub, no gallop RESPIRATION: Breath sounds diminished with improving bibasilar crackles, seen equal today ABDOMEN: Soft, nondistended, nontender. no masses palpable. Bowel sounds heard. EXTREMITIES: positive edema. no cyanosis, no clubbing. Mild anasarca NERVOUS SYSTEM: Unable to evaluate at this time, as patient intubated sedated and paralyzed - Labs CBC & Chem 7: 01/05/19 04:50 01/05/19 04:50 Labs: Abnormal Lab Results - Last 24 Hours (Table) 01/04/19 01/04/19 01/04/19 Range/Units 13:21 18:12 20:53 WBC (3.8-10.6) k/uL RBC (4.30-5.90) m/uL Hgb (13.0-17.5) gm/dL Hct (39.0-53.0) % MCV (80.0-100.0) fL MCHC (31.0-37.0) g/dL RDW (11.5-15.5) % Neutrophils # (1.3-7.7) k/uL Lymphocytes # (1.0-4.8) k/uL ABG pH 7.32 L 7.25 L (7.35-7.45) ABG pCO2 73 H* 84 H* (35-45) mmHg ABG pO2 82 L 77 L (83-108) mmHg ABG HCO3 38 H 37 H (21-25) mmol/L ABG Total CO2 40 H 39 H (19-24) mmol/L ABG O2 Saturation 93.8 L 92.5 L (94-97) % Carbon Dioxide (22-30) mmol/L BUN (9-20) mg/dL Creatinine (0.66-1.25) mg/dL Glucose (74-99) mg/dL POC Glucose (mg/dL) 128 H (75-99) mg/dL Magnesium (1.6-2.3) mg/dL Albumin (3.5-5.0) g/dL 01/04/19 01/05/19 01/05/19 Range/Units 23:49 03:51 04:50 WBC (3.8-10.6) k/uL RBC (4.30-5.90) m/uL Hgb (13.0-17.5) gm/dL Hct (39.0-53.0) % MCV (80.0-100.0) fL MCHC (31.0-37.0) g/dL RDW (11.5-15.5) % Neutrophils # (1.3-7.7) k/uL Lymphocytes # (1.0-4.8) k/uL ABG pH 7.17 L* (7.35-7.45) ABG pCO2 100 H* (35-45) mmHg ABG pO2 81 L (83-108) mmHg ABG HCO3 36 H (21-25) mmol/L ABG Total CO2 39 H (19-24) mmol/L ABG O2 Saturation 92.2 L (94-97) % Carbon Dioxide 38 H (22-30) mmol/L BUN 27 H (9-20) mg/dL Creatinine 0.53 L (0.66-1.25) mg/dL Glucose 145 H (74-99) mg/dL POC Glucose (mg/dL) 141 H (75-99) mg/dL Magnesium 2.5 H (1.6-2.3) mg/dL Albumin (3.5-5.0) g/dL 01/05/19 01/05/19 01/05/19 Range/Units 04:50 04:50 05:48 WBC 21.1 H (3.8-10.6) k/uL RBC 3.69 L (4.30-5.90) m/uL Hgb 10.7 L (13.0-17.5) gm/dL Hct 37.1 L (39.0-53.0) % MCV 100.5 H (80.0-100.0) fL MCHC 28.9 L (31.0-37.0) g/dL RDW 18.3 H (11.5-15.5) % Neutrophils # 20.0 H (1.3-7.7) k/uL Lymphocytes # 0.3 L (1.0-4.8) k/uL ABG pH (7.35-7.45) ABG pCO2 (35-45) mmHg ABG pO2 (83-108) mmHg ABG HCO3 (21-25) mmol/L ABG Total CO2 (19-24) mmol/L ABG O2 Saturation (94-97) % Carbon Dioxide (22-30) mmol/L BUN (9-20) mg/dL Creatinine (0.66-1.25) mg/dL Glucose (74-99) mg/dL POC Glucose (mg/dL) 137 H (75-99) mg/dL Magnesium (1.6-2.3) mg/dL Albumin 2.8 L (3.5-5.0) g/dL 01/05/19 Range/Units 08:38 WBC (3.8-10.6) k/uL RBC (4.30-5.90) m/uL Hgb (13.0-17.5) gm/dL Hct (39.0-53.0) % MCV (80.0-100.0) fL MCHC (31.0-37.0) g/dL RDW (11.5-15.5) % Neutrophils # (1.3-7.7) k/uL Lymphocytes # (1.0-4.8) k/uL ABG pH 7.26 L (7.35-7.45) ABG pCO2 84 H* (35-45) mmHg ABG pO2 81 L (83-108) mmHg ABG HCO3 38 H (21-25) mmol/L ABG Total CO2 40 H (19-24) mmol/L ABG O2 Saturation (94-97) % Carbon Dioxide (22-30) mmol/L BUN (9-20) mg/dL Creatinine (0.66-1.25) mg/dL Glucose (74-99) mg/dL POC Glucose (mg/dL) (75-99) mg/dL Magnesium (1.6-2.3) mg/dL Albumin (3.5-5.0) g/dL Assessment and Plan (1) Acute respiratory failure with hypoxia Current Visit: Yes Status: Acute Priority: High Code(s): J96.01 - ACUTE RESPIRATORY FAILURE WITH HYPOXIA SNOMED Code(s): 58895531 (2) Acute pneumonitis Current Visit: Yes Status: Acute Code(s): J18.9 - PNEUMONIA, UNSPECIFIED ORGANISM SNOMED Code(s): 018455482 (3) Aspiration pneumonia Current Visit: Yes Status: Acute Code(s): J69.0 - PNEUMONITIS DUE TO INHALATION OF FOOD AND VOMIT SNOMED Code(s): 309381758 (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 Current Visit: Yes Status: Acute Code(s): C79.89 - SECONDARY MALIGNANT NEOPLASM OF OTHER SPECIFIED SITES SNOMED Code(s): 231399474 (5) Metastasis from esophageal cancer Current Visit: Yes Status: Acute Priority: High Code(s): C79.9 - SECONDARY MALIGNANT NEOPLASM OF UNSPECIFIED SITE; C15.9 - MALIGNANT NEOPLASM OF ESOPHAGUS, UNSPECIFIED SNOMED Code(s): 276268742 (6) Esophageal cancer Current Visit: No Status: Acute Code(s): C15.9 - MALIGNANT NEOPLASM OF ESOPHAGUS, UNSPECIFIED SNOMED Code(s): 999863492 (7) ARDS (adult respiratory distress syndrome) Current Visit: Yes Status: Acute Code(s): J80 - ACUTE RESPIRATORY DISTRESS SYNDROME SNOMED Code(s): 18506740 (8) Oral candidiasis Current Visit: Yes Status: Acute Code(s): B37.0 - CANDIDAL STOMATITIS SNOMED Code(s): 75042948 Plan: Continue on antibiotics per infectious disease and oxygenation treatment per critical care/pulmonology. He'll be reevaluated in the next 24 hours. We will continue to follow him through his
[2019-01-05 12:12] LABS: Glucose,Whole Blood 142 mg/dL (75-99)
--- NOTE | 2019-01-05 13:06 | P.PN ---
Subjective Progress Note Date: 01/05/19 Principal diagnosis: Hypoxia fever Remains stable on ventilator, trach. and parents at bedside. Remains sedated Objective - Vital Signs Vital signs: Vital Signs Temp 98.0 F 01/05/19 08:00 Pulse 98 01/05/19 08:00 Resp 34 H 01/05/19 08:00 BP 108/68 01/03/19 18:30 Pulse Ox 93 L 01/05/19 08:00 Intake & Output 01/04/19 01/05/19 01/05/19 18:59 06:59 18:59 Intake Total 3208.327 1913.917 278.738 Output Total 2617 1605 230 Balance 591.327 308.917 48.738 Weight 79.8 kg Intake: IV 2800 1466 186 Meropenem 1 gm In Sodium 100 Chloride 0.9% 100 ml @ 200 mls/hr IVPB Q8HR [facility] Rx#:[id number] Mvi, Adult No.4 with Vit 1194 840 140 K 10 ml Trace (Conc-1Ml/ Dose) 1 ml Calcium Gluconate 1 gm Potassium Chloride 20 meq Sodium Chloride 2.5MEQ/ml Vial 30 meq In Amino Acid 5%- D15w 1,000 ml @ 70 mls/hr IV .BY DURATION [facility] Rx#: [id number] Mvi, Adult No.4 with Vit 280 K 10 ml Trace (Conc-1Ml/ Dose) 1 ml Calcium Gluconate 1 gm Potassium Phosphate 15 mmol In Amino Acid 5%-D15w 1,000 ml @ 70 mls/hr IV .BY DURATION [facility] Rx#: [id number] Mvi, Adult No.4 with Vit 70 K 10 ml Trace (Conc-1Ml/ Dose) 1 ml Sodium Acetate 35 meq Calcium Gluconate 1 gm In Amino Acid 5%- D15w 1,000 ml @ 70 mls/hr IV .BY DURATION [facility] Rx#: [id number] Sodium Chloride 0.9% 1, 220 240 40 000 ml @ 20 mls/hr IV . Q24H [facility] Rx#:[id number] Vancomycin 1,250 mg In 250 250 Sodium Chloride 0.9% 250 ml @ 125 mls/hr IVPB Q8H [facility] Rx#:[id number] pressure bag 36 36 6 Intake, IV Titration 408.327 447.917 92.738 Amount Cisatracurium 200 mg In 208.327 60.587 4.758 Sodium Chloride 0.9% 180 ml @ 1 MCG/KG/MIN 4.758 mls/hr IV .Q24H [facility] Rx#: [id number] Propofol 1,000 mg In 200.000 387.330 87.98 Empty Bag 1 bag @ Titrate IV .Q0M [facility] Rx#: [id number] Output: Urine 2615 1605 230 Estimated Blood Loss 2 Other: Voiding Method Indwelling Catheter Indwelling Catheter ABP, PAP, CO, CI - Last Documented Arterial Blood Pressure 119/52 - Exam General: Trach and intubated Sedated Head: Normocytic, Atraumatic Neck: Supple Mouth: No Lesions, No Thrush Eyes: Non-sclerotic Heart: Tachy Lungs:Diminished throughout Abdomen: Soft Extremities: Upper and lower edema - Labs CBC & Chem 7: 01/05/19 04:50 01/05/19 04:50 Labs: Abnormal Lab Results - Last 24 Hours (Table) 01/04/19 01/04/19 01/04/19 Range/Units 11:59 13:21 18:12 WBC (3.8-10.6) k/uL RBC (4.30-5.90) m/uL Hgb (13.0-17.5) gm/dL Hct (39.0-53.0) % MCV (80.0-100.0) fL MCHC (31.0-37.0) g/dL RDW (11.5-15.5) % Neutrophils # (1.3-7.7) k/uL Lymphocytes # (1.0-4.8) k/uL ABG pH 7.32 L (7.35-7.45) ABG pCO2 73 H* (35-45) mmHg ABG pO2 82 L (83-108) mmHg ABG HCO3 38 H (21-25) mmol/L ABG Total CO2 40 H (19-24) mmol/L ABG O2 Saturation 93.8 L (94-97) % Carbon Dioxide (22-30) mmol/L BUN (9-20) mg/dL Creatinine (0.66-1.25) mg/dL Glucose (74-99) mg/dL POC Glucose (mg/dL) 167 H 128 H (75-99) mg/dL Magnesium (1.6-2.3) mg/dL 01/04/19 01/04/19 01/05/19 Range/Units 20:53 23:49 03:51 WBC (3.8-10.6) k/uL RBC (4.30-5.90) m/uL Hgb (13.0-17.5) gm/dL Hct (39.0-53.0) % MCV (80.0-100.0) fL MCHC (31.0-37.0) g/dL RDW (11.5-15.5) % Neutrophils # (1.3-7.7) k/uL Lymphocytes # (1.0-4.8) k/uL ABG pH 7.25 L 7.17 L* (7.35-7.45) ABG pCO2 84 H* 100 H* (35-45) mmHg ABG pO2 77 L 81 L (83-108) mmHg ABG HCO3 37 H 36 H (21-25) mmol/L ABG Total CO2 39 H 39 H (19-24) mmol/L ABG O2 Saturation 92.5 L 92.2 L (94-97) % Carbon Dioxide (22-30) mmol/L BUN (9-20) mg/dL Creatinine (0.66-1.25) mg/dL Glucose (74-99) mg/dL POC Glucose (mg/dL) 141 H (75-99) mg/dL Magnesium (1.6-2.3) mg/dL 01/05/19 01/05/19 01/05/19 Range/Units 04:50 04:50 05:48 WBC 21.1 H (3.8-10.6) k/uL RBC 3.69 L (4.30-5.90) m/uL Hgb 10.7 L (13.0-17.5) gm/dL Hct 37.1 L (39.0-53.0) % MCV 100.5 H (80.0-100.0) fL MCHC 28.9 L (31.0-37.0) g/dL RDW 18.3 H (11.5-15.5) % Neutrophils # 20.0 H (1.3-7.7) k/uL Lymphocytes # 0.3 L (1.0-4.8) k/uL ABG pH (7.35-7.45) ABG pCO2 (35-45) mmHg ABG pO2 (83-108) mmHg ABG HCO3 (21-25) mmol/L ABG Total CO2 (19-24) mmol/L ABG O2 Saturation (94-97) % Carbon Dioxide 38 H (22-30) mmol/L BUN 27 H (9-20) mg/dL Creatinine 0.53 L (0.66-1.25) mg/dL Glucose 145 H (74-99) mg/dL POC Glucose (mg/dL) 137 H (75-99) mg/dL Magnesium 2.5 H (1.6-2.3) mg/dL 01/05/19 Range/Units 08:38 WBC (3.8-10.6) k/uL RBC (4.30-5.90) m/uL Hgb (13.0-17.5) gm/dL Hct (39.0-53.0) % MCV (80.0-100.0) fL MCHC (31.0-37.0) g/dL RDW (11.5-15.5) % Neutrophils # (1.3-7.7) k/uL Lymphocytes # (1.0-4.8) k/uL ABG pH 7.26 L (7.35-7.45) ABG pCO2 84 H* (35-45) mmHg ABG pO2 81 L (83-108) mmHg ABG HCO3 38 H (21-25) mmol/L ABG Total CO2 40 H (19-24) mmol/L ABG O2 Saturation (94-97) % Carbon Dioxide (22-30) mmol/L BUN (9-20) mg/dL Creatinine (0.66-1.25) mg/dL Glucose (74-99) mg/dL POC Glucose (mg/dL) (75-99) mg/dL Magnesium (1.6-2.3) mg/dL Assessment and Plan Plan: Assessment and Plan: Febrile on Chemotherapy: - Reeves Culture - Infectious Disease Consultation - Broad Spectrum antibiotics, concern for possible aspiration, swallow evaluation - Chest Xray Esophageal Cancer: Recurrent: - Currently on Chemotherapy with primary Oncologist Dr. Lockwood - He was due for chemo yesterday but did not feel well so did not receive - Treatment on hold until acute situation resolves Vent-Dependent Respiratory Failure Acute Hypoxic Respiratory Failure: - Per ICU Care - Intubated sedated trach collar Plan: - Trach, Vent support - Emotional support provided to and will have social services from [place] discuss finacial worries with her tomorrow - ICU and PUlm Care - Aggressive Supportive Care
[2019-01-05] MEDS: fentaNYL (PF) 1,000 MCG in SODIUM CHLORIDE 0.9% 80 ML IV SCH ×2 (13:15→23:15)
[2019-01-05] MEDS: 1: MVI, ADULT NO.4 WITH VIT K 10 ML, TRACE (CONC-1ML/DOSE) 1 ML, CALCIUM GLUCONATE 1 GM, IV SCH ×18 (13:23→15:31)
[2019-01-05 15:43] LABS: ABG Base Excess 14.7 mmol/L; ABG Oxygen Saturation 95.4 % (94-97); ABG PH 7.31 (7.35-7.45); ABG PO2 85 mmHg (83-108); ABG TCO2 44 mmol/L (19-24); Allen Test Performed? Yes
[2019-01-05 15:45] LABS: ABG HCO3 41 mmol/L (21-25); ABG PCO2 82 mmHg (35-45)
[2019-01-05 17:58] LABS: Glucose,Whole Blood 139 mg/dL (75-99)
[2019-01-05] MEDS: CISATRACURIUM 200 MG in SODIUM CHLORIDE 0.9% 180 ML IV SCH (19:02)
[2019-01-05] MEDS: traZODone HCL 50 MG TAB PO SCH (19:45)
[2019-01-05] MEDS: SODIUM CHLORIDE 0.9% 1,000 ML IV SCH (20:59)
[2019-01-05 23:38] LABS: Glucose,Whole Blood 158 mg/dL (75-99)
[2019-01-06] MEDS: HYDROmorphone 1 MG/ML 1 ML SYRINGE IVP PRN ×3 (00:08→13:52)
[2019-01-06] MEDS: PROPOFOL 1,000 MG in EMPTY BAG 1 BAG IV SCH ×6 (00:08→21:26)
[2019-01-06] MEDS: IPRATROPIUM-ALBUTEROL 3 ML NEB INHALATION SCH ×6 (03:09→23:28)
[2019-01-06] MEDS: ARTIFICIAL TEARS-HYPROMELLOSE DROPS 15 ML BTL BOTH EYES SCH ×3 (03:32→12:29)
[2019-01-06] MEDS: 1: MVI, ADULT NO.4 WITH VIT K 10 ML, TRACE (CONC-1ML/DOSE) 1 ML, CALCIUM GLUCONATE 1 GM, IV SCH ×12 (04:31→21:29)
[2019-01-06 04:46] LABS: Anisocytosis Slight; Basophils # (A) 0.1 k/uL (0-0.2); Basophils % (A) 1 %; Eosinophils # (A) 0.1 k/uL (0-0.7); Eosinophils % (A) 0 %; HCT 34.3 % (39.0-53.0); HGB 10.2 gm/dL (13.0-17.5); Hypochromasia Marked; Lymphocytes # (A) 0.5 k/uL (1.0-4.8); Lymphocytes % (A) 3 %; MCH 29.6 pg (25.0-35.0); MCHC 29.8 g/dL (31.0-37.0); MCV 99.5 fL (80.0-100.0); Macrocytosis Slight; Mean Platelet Volume 9.7; Monocytes # (A) 0.5 k/uL (0-1.0); Monocytes % (A) 3 %; Neutrophils # (A) 15.9 k/uL (1.3-7.7); Neutrophils % (A) 93 %; Platelet Count 152 k/uL (150-450); RBC 3.45 m/uL (4.30-5.90); RDW 18.3 % (11.5-15.5); WBC 17.1 k/uL (3.8-10.6)
[2019-01-06 04:48] LABS: ABG Base Excess 16.3 mmol/L; ABG Oxygen Saturation 95.5 % (94-97); ABG PH 7.28 (7.35-7.45); ABG PO2 92 mmHg (83-108); ABG TCO2 46 mmol/L (19-24); Allen Test Performed? Yes
[2019-01-06 05:09] LABS: ABG PCO2 93 mmHg (35-45)
[2019-01-06 05:24] LABS: Ionized Calcium 5.2 mg/dL (4.5-5.3)
[2019-01-06 05:32] LABS: African American GFR (CKD) >90 (>60 ml/min/1.73 sqM); Blood Urea Nitrogen 28 mg/dL (9-20); Calcium 8.9 mg/dL (8.4-10.2); Chloride 100 mmol/L (98-107); Glucose 154 mg/dL (74-99); Magnesium 2.5 mg/dL (1.6-2.3); Phosphorus 2.8 mg/dL (2.5-4.5); Potassium 4.5 mmol/L (3.5-5.1); Sodium 141 mmol/L (137-145)
[2019-01-06 05:36] LABS: Glucose,Whole Blood 145 mg/dL (75-99)
[2019-01-06 05:39] LABS: Anion Gap -1 mmol/L
[2019-01-06 05:45] LABS: Carbon Dioxide 42 mmol/L (22-30)
[2019-01-06] MEDS: INSULIN ASPART (NovoLOG) 100 UNIT/ML VIAL SQ SCH ×3 (05:46→18:26)
[2019-01-06] MEDS: NOREPINEPHRINE 32 MG in SODIUM CHLORIDE 0.9% 218 ML IV SCH (06:21)
[2019-01-06] MEDS: VANCOMYCIN 1,250 MG in SODIUM CHLORIDE 0.9% 250 ML IVPB SCH ×3 (06:43→23:28)
[2019-01-06] MEDS: BUDESONIDE 1 MG/2 ML NEBU INHALATION SCH ×2 (07:16→19:10)
[2019-01-06] MEDS: FORMOTEROL FUMARATE 20 MCG/2 ML NEBU INHALATION SCH ×2 (07:16→19:10)
[2019-01-06] MEDS: MEROPENEM 1 GM in SODIUM CHLORIDE 0.9% 100 ML IVPB SCH ×2 (08:20→15:51)
[2019-01-06] MEDS: methylPREDNISolone SOD SUCCI 125 MG/2 ML VIAL IV SCH ×2 (08:20→15:51)
[2019-01-06] MEDS: HEPARIN SODIUM,PORCINE 5,000 UNIT/ML 1 ML VIAL SQ SCH ×2 (08:20→15:51)
--- NOTE | 2019-01-06 08:20 | XR ---
EXAMINATION TYPE: XR chest 1V portable DATE OF EXAM: 01/06/2019 CLINICAL HISTORY: Difficulty breathing progress study. TECHNIQUE: Single AP portable upright view of the chest is obtained. COMPARISON: Chest x-ray from one day earlier and older studies. FINDINGS: A tracheostomy tube, left internal jugular central venous catheter, and right internal jug ular Mediport catheter all stable in appearance. Cardiac silhouette size is stable and within normal limits. There is bibasilar reticulonodular opacit ies with left-sided effusion redemonstrated. Osseous structures are intact. IMPRESSION: Overall stable findings, persistent small left pleural effusion and bibasilar reticulon odular infiltrate and/or edema.
[2019-01-06] MEDS: FUROSEMIDE 10 MG/ML 4 ML VIAL IV SCH (08:21)
[2019-01-06] MEDS: CHLORHEXIDINE GLUCONATE 15 ML CUP MUCOUS MEM SCH ×2 (08:21→21:28)
[2019-01-06] MEDS: SENNOSIDES-DOCUSATE SODIUM 1 EACH TAB PO SCH ×2 (08:21→22:15)
[2019-01-06] MEDS: FLUCONAZOLE IN NACL,ISO-OSM 100 MG in SALINE 1 50ML.BAG IVPB SCH (08:21)
[2019-01-06] MEDS: PANTOPRAZOLE 40 MG/10 ML VIAL IVP SCH ×2 (08:21→21:28)
[2019-01-06 08:37] LABS: ABG PCO2 100 mmHg (35-45); ABG PH 7.17 (7.35-7.45)
[2019-01-06 08:38] LABS: ABG PCO2 84 mmHg (35-45)
[2019-01-06] MEDS: fentaNYL (PF) 1,000 MCG in SODIUM CHLORIDE 0.9% 80 ML IV SCH ×2 (08:40→22:49)
[2019-01-06 10:17] LABS: ABG Base Excess 21.8 mmol/L; ABG Oxygen Saturation 92.7 % (94-97); ABG PO2 65 mmHg (83-108); ABG TCO2 49 mmol/L (19-24); Allen Test Performed? Yes
[2019-01-06] MEDS ORDERED: ANIDULAFUNGIN 200 MG in SODIUM CHLORIDE 0.9% 200 ML IVPB ONE (10:30)
[2019-01-06 10:38] LABS: ABG HCO3 47 mmol/L (21-25)
[2019-01-06 12:17] LABS: Glucose,Whole Blood 167 mg/dL (75-99)
--- NOTE | 2019-01-06 13:37 | P.PN ---
Subjective Progress Note Date: 01/06/19 This is a 48-year-old gentleman with history of esophageal cancer, completed radiation and chemotherapy, history of gastric pull-through, recent biopsy reporting adenocarcinoma with chemotherapy resumed. T-max on admission 100.3, WBC 14.6, neutrophils normal, hemoglobin ,platelets, electrolytes essentially normal.Currently T-max 100.2, WBC improving, down to 12.4.. Maintained on IV fluid hydration of D5.45 MLS per hour, cefepime, vancomycin. Speech consulted to evaluate for silent aspiration(prior history of PEG tube which has been discontinued). Chest x-ray reported new multifocal airspace disease possible multifocal pneumonia versus pulmonary edema. F/U chest x-ray this morning with no significant change. On admission patient had been satting high 90s on room air. During the afternoon patient sats decreased to 93-94%. Last night, patient desatted to 70s to 80s %, A teamed called, received a dose of Lasix 40 IV push and placed on BiPAP. BiPAP weaned off currently on 15 L high flow nasal cannula this morning, maintaining O2 sats of 93%. No further nausea vomiting or diarrhea. Tolerating clear liquid diet. 12/26/2018 Tested negative for influenza, CT negative for PE, received a couple doses of Lasix for potential pulmonary edema, Swallow evaluation per speech therapy with no aspiration observed, universal aspiration precautions recommended..During the night, patient desatted, did not respond to BiPAP, transferred to ICU and placed on Airvo. Maintaining O2 sats of low 90s on 80% airvo. Maintained on IV antibiotics of vancomycin, Maxipime as per infectious disease. T-max 100.4,WBC WNL. Preliminary blood cultures negative at 24 hours .Continues on nebulized bronchodilators. Feels better this morning. 12/27/2018: She remains on high flow nasal cannula oxygen. Pulse ox is 92%. He remains on IV vancomycin plus Maxipime for antibiotic coverage. Solu-Medrol was started yesterday and seems to help. He remains nothing by mouth for suspected chronic aspiration. His is at bedside. Chest x-ray today shows worsening interstitial airspace disease. Clinically he feels better. Staff report he is doing better. 12/28/2018: Patient's chest x-ray shortness of breath continue worsen. He is unable to move significantly not descending. He remains on Airvo. His remains at bedside. I discussed this case with Dr. Wade, he is considering bronchoscopy, but fears that he would end up being intubated and unable to ween.Exact cause of his symptoms are unknown without multifactorial due to aspiration pneumonia, chemical pneumonitis due to chemotherapy, and other factors. 12/29/2018 Maintained on vancomycin and cefepime as per ID. Remains airvo de pendent, maintaining O2 sats of 95% on 60%. chest x-ray reporting stable bilateral pneumonia, ARDS, or pulmonary edema; diffuse increase in opacification to the right lung. Recurrent emesis , aspiration risks changed to NPO, TPN ordered. Blood sugars controlled. Oral thrush, Diflucan initiated. T-max 99.9, WBC down to 15.1. 12/30/2018 respiratory status continued to deteriorate yesterday and patient required intubation yesterday afternoon. Chest x-ray reporting slight improvement in diffuse pulmonary edema, persistent interstitial opacity's bilaterally right more than left, bibasilar atelectasis. ABGs reflected severe respiratory acidosis this morning. FiO2 has been weaned down to 70%, PEEP has been weaned down to 14. Mild sinus tachycardia. Currently on pressor support of Levophed 40 mcgs, and on chemical paralysis with Nimbex. Right pupil fixed and dilated, unstable at this time for transfer to CT. potassium elevated at 6.2 received sodium bicarb D50, insulin, down to 5.8. Afebrile, White count up to 52, on Merrem ,Vancomycin and Diflucan. Repeat cultures sent. Maintained on TPN. Continues on nebulized bronchodilators, IV steroids 12/31/18 Maintained on Nimbex drip, ABGs improved with FiO2 decreased to 50% and PEEP down to 12%,cuff leak resolved with ETT repositioned.Levophed weaned down to 2 mcgs. Maintained on TPN. Continues on nebulized bronchodilators, IV s teroids. Aggressive fluid resuscitation decreased, positive fluid balance with extremity edema .Afebrile,cultures negative. 01/01/2019 sputum culture report and Fabi glabrata and Fabi albicans, repeat sputum culture pending. Maintained on IV antibiotics of vancomycin and Merrem.afebrile,WBC decreased to 12.7.Attempted Nimbex weaning, not tolerated, peak pressure reading, and oxygenating, desatted into the 80s.Nimbex resumed. patient was maintaining O2 sats in the high 80s, ABGs noted, including PO2 of 67. Vent changes: Rate decreased, FiO2 increased to 60%,complete maintained and 12. chest x-ray reporting mild improvement of bibasilar infiltrates. IV fluids decreased yesterday,continues on 0.9 at KVO, as well as TPN.24 hour I&O reflecting a negative fluid balance.Positive bowel movement this morning. 01/02/2019 Remains vent dependent on FiO2 of 60%/+12 Peep. Maintained on Nimbex and Diprovan. Dr. Padilla consulted regarding tracheostomy. Telemetry sinus rhythm to sinus tach. 01/03/2019: Patient remains in the intensive care unit, intubated, sedated and mechanically ventilated. His current PEEP is 12. FiO2 is still 60%. HEENT been able to wean off the paralytic agent. He remains on fluconazole, meropenem and vancomycin for antibiotic coverage. His is at bedside. Telemetry continues to show sinus rhythm. Achy ostomy is planned for the near future ba sed on his status. He is slightly improved today compared to yesterday. 01/05/2019: Patient remains in intensive care unit. He is sedated and paralyzed once again. He remains on mechanical ventilation, now through the tracheostomy tube. Tracheostomy was placed yesterday. His is at bedside, care discussed with her briefly. ICU nurse was also present. He remains on fluconazole, meropenem, and vancomycin for antibiotic coverage. propofol, Cistacuium and fentanyl for sedation and paralyzation. He also is now on TPN 01/06/19 maintained on vent support with FiO2 50%/+12 of PEEP via trach.. ABGs noted, rate and tidal volume adjusted ,mild cuff leak. Chest x-ray reporting stable persistent small left pleural effusion and bibasilar reticulonodular infiltrates/edema. Nimbex has been weaned off, maintained on both Diprovan and fentanyl. Continues on fluconazole, vancomycin and Maxipime as per ID. telemetry sinus rhythm to sinus tach. Afebrile. Objective - Vital Signs Vital signs: Vital Signs Temp 98.3 F 01/06/19 08:00 Pulse 98 01/06/19 08:30 Resp 31 H 01/06/19 08:30 BP 108/68 01/03/19 18:30 Pulse Ox 95 01/06/19 08:30 Intake & Output 01/05/19 01/06/19 01/06/19 18:59 06:59 18:59 Intake Total 2027.078 3188.309 854.145 Output Total 2195 1530 650 Balance -233.245 364.309 204.145 Weight 79.8 kg 79.3 kg Intake: IV 1596 1466 679 Calcium Gluconate 1 gm 210 210 Potassium Phosphate 10 mmol Sodium Chloride 2. 5MEQ/ml Vial 25 meq In Amino Acid 5%-D15w 1,000 ml @ 70 mls/hr IV .BY DURATION [facility] Rx#: [id number] Fluconazole in NaCl,Iso- 50 50 Osm 100 mg In Saline 1 50ml.bag @ 50 mls/hr IVPB DAILY [facility] Rx#:[id number] Meropenem 1 gm In Sodium 200 100 100 Chloride 0.9% 100 ml @ 200 mls/hr IVPB Q8HR [facility] Rx#:[id number] Mvi, Adult No.4 with Vit 840 630 K 10 ml Trace (Conc-1Ml/ Dose) 1 ml Calcium Gluconate 1 gm Potassium Chloride 20 meq Sodium Chloride 2.5MEQ/ml Vial 30 meq In Amino Acid 5%- D15w 1,000 ml @ 70 mls/hr IV .BY DURATION [facility] Rx#: [id number] Sodium Chloride 0.9% 1, 220 240 60 000 ml @ 20 mls/hr IV . Q24H [facility] Rx#:[id number] Vancomycin 1,250 mg In 250 250 250 Sodium Chloride 0.9% 250 ml @ 125 mls/hr IVPB Q8H [facility] Rx#:[id number] pressure bag 36 36 9 Intake, IV Titration 365.755 428.309 175.145 Amount Cisatracurium 200 mg In 4.758 Sodium Chloride 0.9% 180 ml @ 1 MCG/KG/MIN 4.758 mls/hr IV .Q24H [facility] Rx#: [id number] Propofol 1,000 mg In 334.663 374.843 100.000 Empty Bag 1 bag @ Titrate IV .Q0M [facility] Rx#: [id number] fentaNYL (PF) 1,000 mcg 26.334 53.466 75.145 In Sodium Chloride 0.9% 80 ml @ 1 MCG/KG/HR 7.98 mls/hr IV .[id number] [facility] Rx #:[id number] Output: Urine 2195 1530 650 Other: Voiding Method Indwelling Catheter Indwelling Catheter ABP, PAP, CO, CI - Last Documented Arterial Blood Pressure 141/56 - Exam VITAL SIGNS: As above GENERAL: Lying in bed, calm, intubated, sedated HEENT: Conjunctivae normal. Pupils equal, oral mucosa dry NECK: Supple, tracheostomy tube present CARDIOVASCULAR: S1, S2 regular. Mild tachycardia, No murmur, no rub, no gallop RESPIRATION: Breath sounds diminished with improving bibasilar crackles ABDOMEN: Soft, nondistended, nontender. no masses palpable. Bowel sounds heard. EXTREMITIES: positive edema. no cyanosis, no clubbing. Mild anasarca NERVOUS SYSTEM: Unable to evaluate at this time, as patient intubated sedated Microbiology 12/31/18 20:40 Sputum Gram Stain - Final 12/31/18 20:40 Sputum Sputum Culture - Final Fabi albicans Fabi glabrata 12/29/18 23:54 Sputum Gram Stain - Final 12/29/18 23:54 Sputum Sputum Culture - Final Fabi glabrata Fabi albicans 12/24/18 11:30 Blood Blood Culture - Final No Growth after 144 hours 12/24/18 09:40 Blood Blood Culture - Final No Growth after 144 hours 12/26/18 03:35 Sputum Gram Stain - Final 12/26/18 03:35 Sputum Sputum Culture - Final - Labs CBC & Chem 7: 01/06/19 04:40 01/06/19 04:40 Labs: Abnormal Lab Results - Last 24 Hours (Table) 01/05/19 01/05/19 01/05/19 Range/Units 03:51 04:50 08:38 WBC (3.8-10.6) k/uL RBC (4.30-5.90) m/uL Hgb (13.0-17.5) gm/dL Hct (39.0-53.0) % MCHC (31.0-37.0) g/dL RDW (11.5-15.5) % Neutrophils # (1.3-7.7) k/uL Lymphocytes # (1.0-4.8) k/uL ABG pH 7.17 L* (7.35-7.45) ABG pCO2 100 H* 84 H* (35-45) mmHg ABG HCO3 (21-25) mmol/L ABG Total CO2 (19-24) mmol/L Carbon Dioxide (22-30) mmol/L BUN (9-20) mg/dL Creatinine (0.66-1.25) mg/dL Glucose (74-99) mg/dL POC Glucose (mg/dL) (75-99) mg/dL Magnesium (1.6-2.3) mg/dL Albumin 2.8 L (3.5-5.0) g/dL 01/05/19 01/05/19 01/05/19 Range/Units 12:08 15:34 17:55 WBC (3.8-10.6) k/uL RBC (4.30-5.90) m/uL Hgb (13.0-17.5) gm/dL Hct (39.0-53.0) % MCHC (31.0-37.0) g/dL RDW (11.5-15.5) % Neutrophils # (1.3-7.7) k/uL Lymphocytes # (1.0-4.8) k/uL ABG pH 7.31 L (7.35-7.45) ABG pCO2 82 H* (35-45) mmHg ABG HCO3 41 H* (21-25) mmol/L ABG Total CO2 44 H (19-24) mmol/L Carbon Dioxide (22-30) mmol/L BUN (9-20) mg/dL Creatinine (0.66-1.25) mg/dL Glucose (74-99) mg/dL POC Glucose (mg/dL) 142 H 139 H (75-99) mg/dL Magnesium (1.6-2.3) mg/dL Albumin (3.5-5.0) g/dL 01/05/19 01/06/19 01/06/19 Range/Units 23:35 04:40 04:40 WBC 17.1 H (3.8-10.6) k/uL RBC 3.45 L (4.30-5.90) m/uL Hgb 10.2 L (13.0-17.5) gm/dL Hct 34.3 L (39.0-53.0) % MCHC 29.8 L (31.0-37.0) g/dL RDW 18.3 H (11.5-15.5) % Neutrophils # 15.9 H (1.3-7.7) k/uL Lymphocytes # 0.5 L (1.0-4.8) k/uL ABG pH (7.35-7.45) ABG pCO2 (35-45) mmHg ABG HCO3 (21-25) mmol/L ABG Total CO2 (19-24) mmol/L Carbon Dioxide 42 H* (22-30) mmol/L BUN 28 H (9-20) mg/dL Creatinine 0.43 L (0.66-1.25) mg/dL Glucose 154 H (74-99) mg/dL POC Glucose (mg/dL) 158 H (75-99) mg/dL Magnesium 2.5 H (1.6-2.3) mg/dL Albumin (3.5-5.0) g/dL 01/06/19 01/06/19 Range/Units 04:45 05:35 WBC (3.8-10.6) k/uL RBC (4.30-5.90) m/uL Hgb (13.0-17.5) gm/dL Hct (39.0-53.0) % MCHC (31.0-37.0) g/dL RDW (11.5-15.5) % Neutrophils # (1.3-7.7) k/uL Lymphocytes # (1.0-4.8) k/uL ABG pH 7.28 L (7.35-7.45) ABG pCO2 93 H* (35-45) mmHg ABG HCO3 43 H* (21-25) mmol/L ABG Total CO2 46 H (19-24) mmol/L Carbon Dioxide (22-30) mmol/L BUN (9-20) mg/dL Creatinine (0.66-1.25) mg/dL Glucose (74-99) mg/dL POC Glucose (mg/dL) 145 H (75-99) mg/dL Magnesium (1.6-2.3) mg/dL Albumin (3.5-5.0) g/dL Assessment and Plan Assessment: (1) Acute hypoxic respiratory failure, ventilator dependent, chemically paralyzed, secondary to aspiration pneumonia, acute pneumonitis with ARDS, possible chemotherapy induced injury, possible metastatic lymphangitic (2) septic shock with severe leukocytosis, pressor dependent, multi-factorial; related to multiple comorbidities Current Visit: Yes Status: Acute Code(s): J96.01 - ACUTE RESPIRATORY FAILURE WITH HYPOXIA SNOMED Code(s): 18145160 (3) Acute pneumonitis with ARDS, possibly chemotherapy induced Current Visit: Yes Status: Acute Code(s): J18.9 - PNEUMONIA, UNSPECIFIED ORGANISM SNOMED Code(s): 004316416 (3) Aspiration pneumonia,sputum culture reporting Fabi glabrata and Fabi albicans Current Visit: Yes Status: Acute Code(s): J69.0 - PNEUMONITIS DUE TO INHALATION OF FOOD AND VOMIT SNOMED Code(s): 023935545 (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 Recurrent esophageal cancer recent biopsy reporting adenocarcinoma with metastasis to L3 spine and to the stomach, chemotherapy resumed Current Visit: No Status: Acute Code(s): C15.9 - MALIGNANT NEOPLASM OF ESOPHAGUS, UNSPECIFIED SNOMED Code(s): 198752278 (7) oral candidiasis (8) anxiety (9) chronic recurrent aspiration , on TPN (10) leukocytosis (11) oral candidasis Plan: Continue current medication regime ,monitoring and symptomatic treatment. strict aspiration precautions. Continue on IV antibiotics as per ID. Nebulized bronchodilators, IV steroids ,IV diuretics,as per Intentivist. at bedside, updated, questions addressed, support given. Follow closely with multiple consults. Prognosis extremely guarded given multiple complex medical issues.Maintain supportive care. The impression and plan of care has been dictated as directed. : I performed a history and examination of this patient, discussed the same with the dictator. I agree with the dictator's note ,documented as a scribe. Any additional findings or plans will be noted. Time taken: 35 minutes
--- NOTE | 2019-01-06 13:42 | P.PN ---
Subjective Progress Note Date: 01/06/19 Principal diagnosis: Acute hypoxic respiratory failure/ARDS with diffuse bilateral pulmonary infiltrates. On 01/05/2019, I'm seeing this patient for a follow-up. The patient is post tracheostomy tube insertion that was done yesterday without any complications. We are trying to wean him off the Nimbex for now. We were able to get it off yesterday yet briefly he required minimal paralysis to maintain synchrony. Note that this morning, the patient was quite comfortable. I changed him to VC loss mode with a tidal volume of 400 and the rate of 34 with an FiO2 of 55% and PEEP of 12. He is I time is 1. the patient is having some leaks around the tracheostomy tube and he is losing some volumes. This is probably in the form of 50 mL and for that reason I increased the tidal volume to counteract for that. His static pressures remains below 35. His blood gases on the current vent settings shows a pH of 7. episodes of 84 and pO2 of 81. The patient's chest x-ray shows no changes. Tracheostomy tube is in a good location. White cell count is up to 21. Nevertheless he does not have any fever. The orogastric tube has been removed. The patient has TPN for nutritional support. We will still being diuresis with IV Lasix. He was given Diamox for metabolic alkalosis. His serum bicarbs at 38. He is on IV Lasix. The fluid balance is - 2.4 L over the past 24 hours. The patient is receiving Lasix 40 mg IV push every 24 hours. He remains on broad-spectrum antibiotics. He remains on IV Solu-Medrol. His cardiac rhythm is sinus. He is on a combination of propofol for sedation index was being is less for paralysis. Tracheostomy tube is in place for now. This is a Bivona tracheostomy tube #8 with a foamy cuff Reevaluated today on 01/06/2019, patient remains on mechanical ventilation, off levo fed, off Nimbex, ventilator settings are tidal volume of 500, assist control rate of 30, FiO2 55%, and PEEP of 12. Patient is on fentanyl at 75 mcg/h, his also on propofol at 75 mcg/kg/m. He is also on TPN, continues to have significant leak from the tracheostomy site, and were making up for the leak by increasing his tidal volume from 400-500. He is actually getting about 400 mL of tidal volume. Repeat ABG showed a pO2 of 65 is CO2 of 76 pH of 7.40. CBC showed WBC count of 17 hemoglobin of 10.2. Chest x-ray showed small left pleural effusion and bibasilar reticulonodular infiltrates and/or edema. Patient is fully sedated, and his ventilator settings were adjusted accordingly. Objective - Vital Signs Vital signs: Vital Signs Temp 98.3 F 01/06/19 08:00 Pulse 90 01/06/19 12:00 Resp 32 H 01/06/19 12:00 BP 108/68 01/03/19 18:30 Pulse Ox 95 01/06/19 12:00 Intake & Output 01/05/19 01/06/19 01/06/19 18:59 06:59 18:59 Intake Total 7621.702 8400.309 1393.145 Output Total 2195 1530 2350 Balance -233.245 364.309 -956.855 Weight 79.8 kg 79.3 kg Intake: IV 1596 1466 1218 Anidulafungin 200 mg In 260 Sodium Chloride 0.9% 200 ml @ 84 mls/hr IVPB ONCE ONE Rx#:[id number] Calcium Gluconate 1 gm 210 420 Potassium Phosphate 10 mmol Sodium Chloride 2. 5MEQ/ml Vial 25 meq In Amino Acid 5%-D15w 1,000 ml @ 70 mls/hr IV .BY DURATION [facility] Rx#: [id number] Fluconazole in NaCl,Iso- 50 50 Osm 100 mg In Saline 1 50ml.bag @ 50 mls/hr IVPB DAILY [facility] Rx#:[id number] Meropenem 1 gm In Sodium 200 100 100 Chloride 0.9% 100 ml @ 200 mls/hr IVPB Q8HR [facility] Rx#:[id number] Mvi, Adult No.4 with Vit 840 630 K 10 ml Trace (Conc-1Ml/ Dose) 1 ml Calcium Gluconate 1 gm Potassium Chloride 20 meq Sodium Chloride 2.5MEQ/ml Vial 30 meq In Amino Acid 5%- D15w 1,000 ml @ 70 mls/hr IV .BY DURATION [facility] Rx#: [id number] Sodium Chloride 0.9% 1, 220 240 120 000 ml @ 20 mls/hr IV . Q24H [facility] Rx#:[id number] Vancomycin 1,250 mg In 250 250 250 Sodium Chloride 0.9% 250 ml @ 125 mls/hr IVPB Q8H [facility] Rx#:[id number] pressure bag 36 36 18 Intake, IV Titration 365.755 428.309 175.145 Amount Cisatracurium 200 mg In 4.758 Sodium Chloride 0.9% 180 ml @ 1 MCG/KG/MIN 4.758 mls/hr IV .Q24H [facility] Rx#: [id number] Propofol 1,000 mg In 334.663 374.843 100.000 Empty Bag 1 bag @ Titrate IV .Q0M [facility] Rx#: [id number] fentaNYL (PF) 1,000 mcg 26.334 53.466 75.145 In Sodium Chloride 0.9% 80 ml @ 1 MCG/KG/HR 7.98 mls/hr IV .[id number] [facility] Rx #:[id number] Output: Urine 2195 1530 2350 Other: Voiding Method Indwelling Catheter Indwelling Catheter Indwelling Catheter ABP, PAP, CO, CI - Last Documented Arterial Blood Pressure 143/60 - Exam General: Revealed a 48-year-old white male sedated, on propofol and on fentanyl drip, on mechanical ventilation, in no distres Head: Normocytic, Atraumatic Neck: Supple, Neck was supple and without jugular venous distension, thyromegaly, or carotid bruits. Carotids were easily palpable bilaterally. Tracheostomy seems to be intact, Mouth: Normal mucous membranes, moist, no thrush noted. Neck: No Palpable cervical, tracheostomy is intact. No neck masses. Heart: Normal S1 and S2, no gallop. No murmur. heart sound was noted. There were no murmurs, rubs, clicks, or gallops. Lungs: Crackles and rhonchi at the bases. No wheezing. Symmetrical chest expansion. No chest wall tenderness Abdomen: Soft nontender no megaly no rebound no guarding. Extremities: No clubbing edema or cyanosis, good pulses bilaterally Neurological: Cannot be assessed, patient is fully sedated Psych: Unable to perform due to the above-mentioned Examination of the skin revealed no evidence of significant rashes, suspicious appearing nevi or other concerning lesions. - Labs CBC & Chem 7: 01/06/19 04:40 01/06/19 04:40 Labs: Abnormal Lab Results - Last 24 Hours (Table) 01/05/19 01/05/19 01/05/19 Range/Units 03:51 08:38 15:34 WBC (3.8-10.6) k/uL RBC (4.30-5.90) m/uL Hgb (13.0-17.5) gm/dL Hct (39.0-53.0) % MCHC (31.0-37.0) g/dL RDW (11.5-15.5) % Neutrophils # (1.3-7.7) k/uL Lymphocytes # (1.0-4.8) k/uL ABG pH 7.17 L* 7.31 L (7.35-7.45) ABG pCO2 100 H* 84 H* 82 H* (35-45) mmHg ABG pO2 (83-108) mmHg ABG HCO3 41 H* (21-25) mmol/L ABG Total CO2 44 H (19-24) mmol/L ABG O2 Saturation (94-97) % Carbon Dioxide (22-30) mmol/L BUN (9-20) mg/dL Creatinine (0.66-1.25) mg/dL Glucose (74-99) mg/dL POC Glucose (mg/dL) (75-99) mg/dL Magnesium (1.6-2.3) mg/dL 01/05/19 01/05/19 01/06/19 Range/Units 17:55 23:35 04:40 WBC (3.8-10.6) k/uL RBC (4.30-5.90) m/uL Hgb (13.0-17.5) gm/dL Hct (39.0-53.0) % MCHC (31.0-37.0) g/dL RDW (11.5-15.5) % Neutrophils # (1.3-7.7) k/uL Lymphocytes # (1.0-4.8) k/uL ABG pH (7.35-7.45) ABG pCO2 (35-45) mmHg ABG pO2 (83-108) mmHg ABG HCO3 (21-25) mmol/L ABG Total CO2 (19-24) mmol/L ABG O2 Saturation (94-97) % Carbon Dioxide 42 H* (22-30) mmol/L BUN 28 H (9-20) mg/dL Creatinine 0.43 L (0.66-1.25) mg/dL Glucose 154 H (74-99) mg/dL POC Glucose (mg/dL) 139 H 158 H (75-99) mg/dL Magnesium 2.5 H (1.6-2.3) mg/dL 01/06/19 01/06/19 01/06/19 Range/Units 04:40 04:45 05:35 WBC 17.1 H (3.8-10.6) k/uL RBC 3.45 L (4.30-5.90) m/uL Hgb 10.2 L (13.0-17.5) gm/dL Hct 34.3 L (39.0-53.0) % MCHC 29.8 L (31.0-37.0) g/dL RDW 18.3 H (11.5-15.5) % Neutrophils # 15.9 H (1.3-7.7) k/uL Lymphocytes # 0.5 L (1.0-4.8) k/uL ABG pH 7.28 L (7.35-7.45) ABG pCO2 93 H* (35-45) mmHg ABG pO2 (83-108) mmHg ABG HCO3 43 H* (21-25) mmol/L ABG Total CO2 46 H (19-24) mmol/L ABG O2 Saturation (94-97) % Carbon Dioxide (22-30) mmol/L BUN (9-20) mg/dL Creatinine (0.66-1.25) mg/dL Glucose (74-99) mg/dL POC Glucose (mg/dL) 145 H (75-99) mg/dL Magnesium (1.6-2.3) mg/dL 01/06/19 01/06/19 Range/Units 10:15 12:01 WBC (3.8-10.6) k/uL RBC (4.30-5.90) m/uL Hgb (13.0-17.5) gm/dL Hct (39.0-53.0) % MCHC (31.0-37.0) g/dL RDW (11.5-15.5) % Neutrophils # (1.3-7.7) k/uL Lymphocytes # (1.0-4.8) k/uL ABG pH (7.35-7.45) ABG pCO2 76 H* (35-45) mmHg ABG pO2 65 L (83-108) mmHg ABG HCO3 47 H* (21-25) mmol/L ABG Total CO2 49 H (19-24) mmol/L ABG O2 Saturation 92.7 L (94-97) % Carbon Dioxide (22-30) mmol/L BUN (9-20) mg/dL Creatinine (0.66-1.25) mg/dL Glucose (74-99) mg/dL POC Glucose (mg/dL) 167 H (75-99) mg/dL Magnesium (1.6-2.3) mg/dL Assessment and Plan Assessment: Impression: 1 acute hypoxic respiratory failure/ARDS with bilateral pulmonary infiltrates, underlying pneumonia/aspiration pneumonia is not entirely ruled out. It is very likely considering his presentation. 2 metastatic esophageal cancer 3 recurrent episodes of aspiration pneumonia 4 oropharyngeal candidiasis, improving on Diflucan. 5 history of generalized anxiety disorder 6 acute septic shock and acute hypotension on presentation, most likely related to sepsis, most likely source is pneumonia. Recommendation: Continue present supportive care measures including mechanical ventilation, nutritional support/TPN, continue same antibiotics coverage, continue Solu- Medrol, adjust ventilator settings on a daily basis based on the ABG and based on the overall clinical picture. Continue propofol and fentanyl for now, patient is not ready for any form of weaning at this point. Family was updated on his condition, even touch bases on CODE STATUS, however no decision was made at this point Regarding CODE STATUS. We'll continue to follow. Prognosis is extremely poor and guarded. Critical care time is 40 minutes. Time with Patient: Greater than 30
[2019-01-06] MEDS ORDERED: VANCOMYCIN TROUGH DUE 1 EACH MISC MISCELLANE ONE (14:00)
[2019-01-06 18:37] LABS: Glucose,Whole Blood 160 mg/dL (75-99)
--- NOTE | 2019-01-06 19:05 | P.PN ---
Subjective Progress Note Date: 01/06/19 Principal diagnosis: Difficulty in breathing, nausea and vomiting. Metastatic esophageal adenocarcinoma. Respiratory failure Patient seen today in follow-up. is at the bedside. Patient has had a trach placed, remains sedated and mechanically ventilated, vasopressors dosing has waned and waxed per nursing, patient is on PPN Objective - Vital Signs Vital signs: Vital Signs Temp 98.6 F 01/06/19 16:00 Pulse 81 01/06/19 18:00 Resp 30 H 01/06/19 18:00 BP 108/68 01/03/19 18:30 Pulse Ox 94 L 01/06/19 18:00 Intake & Output 01/05/19 01/06/19 01/06/19 18:59 06:59 18:59 Intake Total 7561.315 5896.309 2401.145 Output Total 2195 1530 2875 Balance -233.245 364.309 -473.855 Weight 79.8 kg 79.3 kg Intake: IV 1596 1466 2126 Anidulafungin 200 mg In 260 Sodium Chloride 0.9% 200 ml @ 84 mls/hr IVPB ONCE ONE Rx#:[id number] Calcium Gluconate 1 gm 210 840 Potassium Phosphate 10 mmol Sodium Chloride 2. 5MEQ/ml Vial 25 meq In Amino Acid 5%-D15w 1,000 ml @ 70 mls/hr IV .BY DURATION [facility] Rx#: [id number] Fluconazole in NaCl,Iso- 50 50 Osm 100 mg In Saline 1 50ml.bag @ 50 mls/hr IVPB DAILY [facility] Rx#:[id number] Meropenem 1 gm In Sodium 200 100 200 Chloride 0.9% 100 ml @ 200 mls/hr IVPB Q8HR [facility] Rx#:[id number] Mvi, Adult No.4 with Vit 840 630 K 10 ml Trace (Conc-1Ml/ Dose) 1 ml Calcium Gluconate 1 gm Potassium Chloride 20 meq Sodium Chloride 2.5MEQ/ml Vial 30 meq In Amino Acid 5%- D15w 1,000 ml @ 70 mls/hr IV .BY DURATION [facility] Rx#: [id number] Sodium Chloride 0.9% 1, 220 240 240 000 ml @ 20 mls/hr IV . Q24H [facility] Rx#:[id number] Vancomycin 1,250 mg In 250 250 500 Sodium Chloride 0.9% 250 ml @ 125 mls/hr IVPB Q8H [facility] Rx#:[id number] pressure bag 36 36 36 Intake, IV Titration 365.755 428.309 275.145 Amount Cisatracurium 200 mg In 4.758 Sodium Chloride 0.9% 180 ml @ 1 MCG/KG/MIN 4.758 mls/hr IV .Q24H [facility] Rx#: [id number] Norepinephrine 32 mg In 0 Sodium Chloride 0.9% 218 ml @ 0.05 MCG/KG/MIN 1. 807 mls/hr IV .Q24H [facility] Rx#:[id number] Propofol 1,000 mg In 334.663 374.843 200.000 Empty Bag 1 bag @ Titrate IV .Q0M [facility] Rx#: [id number] fentaNYL (PF) 1,000 mcg 26.334 53.466 75.145 In Sodium Chloride 0.9% 80 ml @ 1 MCG/KG/HR 7.98 mls/hr IV .[id number] [facility] Rx #:[id number] Output: Urine 2195 1530 2875 Other: Voiding Method Indwelling Catheter Indwelling Catheter Indwelling Catheter ABP, PAP, CO, CI - Last Documented Arterial Blood Pressure 134/58 - Exam Well-developed, thin male laying in bed, he is sedated, no significant edema in the lower extremities is noted, S1 and S2, peripheral pulses are palpable, skin is warm and dry, bowel sounds are hypoactive, abdomen is soft - Labs CBC & Chem 7: 01/06/19 04:40 01/06/19 04:40 Labs: Abnormal Lab Results - Last 24 Hours (Table) 01/05/19 01/05/19 01/05/19 Range/Units 03:51 08:38 23:35 WBC (3.8-10.6) k/uL RBC (4.30-5.90) m/uL Hgb (13.0-17.5) gm/dL Hct (39.0-53.0) % MCHC (31.0-37.0) g/dL RDW (11.5-15.5) % Neutrophils # (1.3-7.7) k/uL Lymphocytes # (1.0-4.8) k/uL ABG pH 7.17 L* (7.35-7.45) ABG pCO2 100 H* 84 H* (35-45) mmHg ABG pO2 (83-108) mmHg ABG HCO3 (21-25) mmol/L ABG Total CO2 (19-24) mmol/L ABG O2 Saturation (94-97) % Carbon Dioxide (22-30) mmol/L BUN (9-20) mg/dL Creatinine (0.66-1.25) mg/dL Glucose (74-99) mg/dL POC Glucose (mg/dL) 158 H (75-99) mg/dL Magnesium (1.6-2.3) mg/dL 01/06/19 01/06/19 01/06/19 Range/Units 04:40 04:40 04:45 WBC 17.1 H (3.8-10.6) k/uL RBC 3.45 L (4.30-5.90) m/uL Hgb 10.2 L (13.0-17.5) gm/dL Hct 34.3 L (39.0-53.0) % MCHC 29.8 L (31.0-37.0) g/dL RDW 18.3 H (11.5-15.5) % Neutrophils # 15.9 H (1.3-7.7) k/uL Lymphocytes # 0.5 L (1.0-4.8) k/uL ABG pH 7.28 L (7.35-7.45) ABG pCO2 93 H* (35-45) mmHg ABG pO2 (83-108) mmHg ABG HCO3 43 H* (21-25) mmol/L ABG Total CO2 46 H (19-24) mmol/L ABG O2 Saturation (94-97) % Carbon Dioxide 42 H* (22-30) mmol/L BUN 28 H (9-20) mg/dL Creatinine 0.43 L (0.66-1.25) mg/dL Glucose 154 H (74-99) mg/dL POC Glucose (mg/dL) (75-99) mg/dL Magnesium 2.5 H (1.6-2.3) mg/dL 01/06/19 01/06/19 01/06/19 Range/Units 05:35 10:15 12:01 WBC (3.8-10.6) k/uL RBC (4.30-5.90) m/uL Hgb (13.0-17.5) gm/dL Hct (39.0-53.0) % MCHC (31.0-37.0) g/dL RDW (11.5-15.5) % Neutrophils # (1.3-7.7) k/uL Lymphocytes # (1.0-4.8) k/uL ABG pH (7.35-7.45) ABG pCO2 76 H* (35-45) mmHg ABG pO2 65 L (83-108) mmHg ABG HCO3 47 H* (21-25) mmol/L ABG Total CO2 49 H (19-24) mmol/L ABG O2 Saturation 92.7 L (94-97) % Carbon Dioxide (22-30) mmol/L BUN (9-20) mg/dL Creatinine (0.66-1.25) mg/dL Glucose (74-99) mg/dL POC Glucose (mg/dL) 145 H 167 H (75-99) mg/dL Magnesium (1.6-2.3) mg/dL 01/06/19 Range/Units 18:22 WBC (3.8-10.6) k/uL RBC (4.30-5.90) m/uL Hgb (13.0-17.5) gm/dL Hct (39.0-53.0) % MCHC (31.0-37.0) g/dL RDW (11.5-15.5) % Neutrophils # (1.3-7.7) k/uL Lymphocytes # (1.0-4.8) k/uL ABG pH (7.35-7.45) ABG pCO2 (35-45) mmHg ABG pO2 (83-108) mmHg ABG HCO3 (21-25) mmol/L ABG Total CO2 (19-24) mmol/L ABG O2 Saturation (94-97) % Carbon Dioxide (22-30) mmol/L BUN (9-20) mg/dL Creatinine (0.66-1.25) mg/dL Glucose (74-99) mg/dL POC Glucose (mg/dL) 160 H (75-99) mg/dL Magnesium (1.6-2.3) mg/dL Assessment and Plan (1) Acute respiratory failure with hypoxia Narrative/Plan: Patient is now had a trach placed, remains in respiratory failure and mechanically ventilated. Defer management to the Critical Care team. Current Visit: Yes Status: Acute Priority: High Code(s): J96.01 - ACUTE RESPIRATORY FAILURE WITH HYPOXIA SNOMED Code(s): 34690795 (2) Metastasis from esophageal cancer Narrative/Plan: I had a long discussion today with patient's . We reviewed, again, the differential diagnoses. Differential diagnosis includes aspiration pneumonia, chemotherapy induced pneumonitis or lymphangitic spread of malignancy. Patient is being treated for aspiration pneumonia with antibiotics, Infectious Disease is following. Patient is on steroids for possible pneumonitis and he is getting further away from treatment. Unfortunately, patient's has not had any significant improvement in his overall condition. This was discussed previously that if patient was treated for aspiration pneumonia and treated for pneumonitis without significant improvement then the likely reasoning for his respiratory failure would be lymphangitic spread of malignancy. We had discussed bronchoscopy with lung biopsy to definitively define if the patient has lymphangitic spread of malignancy but, he is not improved enough over the last 1 3 days to have that procedure. I reminded patient that when we first discussed his case, just prior to his being intubated, she had wanted to do what was best for patient. At that time agreed to 48 hours of critical care treatment then she was going to make further decisions. Patient was bringing different concerns, I will address these. I will also review the case with all of the providers involved to get their opinion on what is being seen. I will meet again with tomorrow and summarize. Current Visit: Yes Status: Acute Priority: High Code(s): C79.9 - SECONDARY MALIGNANT NEOPLASM OF UNSPECIFIED SITE; C15.9 - MALIGNANT NEOPLASM OF ESOPHAGUS, UNSPECIFIED SNOMED Code(s): 956213152
[2019-01-06] MEDS: traZODone HCL 50 MG TAB PO SCH (22:16)
--- NOTE | 2019-01-06 22:35 | P.PN ---
Subjective Progress Note Date: 01/06/19 48-year-old male who is known history of esophageal cancer status post the gastric pull-through procedure. Has completed his original course of chemotherapy and radiation therapy. Was having increasing difficulties and recent biopsies continue to show evidence of adenocarcinoma. He is receiving further courses of chemotherapy at this time. He however now presents to hospital with fever of 103 with chills and rigors and feeling poorly. He has minimal pulmonary symptoms with some cough without much sputum production and no hemoptysis. He relates since coming to Hospital his fever and chills are starting to improve. 12/25/2018 Does feel quite poorly overall. Status has worsened he is more short of breath feels worse today. Requiring increasing amounts of oxygen. Patient still feels very poorly. 12/26/2018 patient's feeling better today off of BiPAP and on Airvo it's much more comfortable and is less short of breath. The BiPAP positive pressure causing nausea and emesis, now improved. 12/27/2018 patient has bouts of nausea which worsens the SOB. Denies fever ,Airvo is well tolerated. December 28, 2018 patient remains on high flow oxygen, is very tired and is easily agitated. Status is not showing much improvement. Patient's is present. 12/29/2018 patient's status has worsened and is now been intubated he sedated and mechanically ventilated, A-line and central line had been placed. Despite 100% oxygen, PEEP of 15 oxygenation is still marginal. 12/30/2018 patient remains critically ill, intubated sedated and mechanically ventilated on vasopressor therapy. However FiO2 has decreased from last night. 01/06/2019 patient has now had tracheotomy placed and remains sedated, FiO2 has decreased. However Little improvement overall has been noted. Objective - Vital Signs Vital signs: Vital Signs Temp 98.6 F 01/06/19 16:00 Pulse 87 01/06/19 19:35 Resp 30 H 01/06/19 19:00 BP 108/68 01/03/19 18:30 Pulse Ox 93 L 01/06/19 19:00 Intake & Output 01/06/19 01/06/19 01/07/19 06:59 18:59 06:59 Intake Total 0035.052 6907.145 93 Output Total 1530 2875 75 Balance 364.309 -473.855 18 Weight 79.3 kg Intake: IV 1466 2126 93 Anidulafungin 200 mg In 260 Sodium Chloride 0.9% 200 ml @ 84 mls/hr IVPB ONCE ONE Rx#:[id number] Calcium Gluconate 1 gm 210 840 70 Potassium Phosphate 10 mmol Sodium Chloride 2. 5MEQ/ml Vial 25 meq In Amino Acid 5%-D15w 1,000 ml @ 70 mls/hr IV .BY DURATION [facility] Rx#: [id number] Fluconazole in NaCl,Iso- 50 Osm 100 mg In Saline 1 50ml.bag @ 50 mls/hr IVPB DAILY [facility] Rx#:[id number] Meropenem 1 gm In Sodium 100 200 Chloride 0.9% 100 ml @ 200 mls/hr IVPB Q8HR [facility] Rx#:[id number] Mvi, Adult No.4 with Vit 630 K 10 ml Trace (Conc-1Ml/ Dose) 1 ml Calcium Gluconate 1 gm Potassium Chloride 20 meq Sodium Chloride 2.5MEQ/ml Vial 30 meq In Amino Acid 5%- D15w 1,000 ml @ 70 mls/hr IV .BY DURATION [facility] Rx#: [id number] Sodium Chloride 0.9% 1, 240 240 20 000 ml @ 20 mls/hr IV . Q24H [facility] Rx#:[id number] Vancomycin 1,250 mg In 250 500 Sodium Chloride 0.9% 250 ml @ 125 mls/hr IVPB Q8H [facility] Rx#:[id number] pressure bag 36 36 3 Intake, IV Titration 428.309 275.145 Amount Norepinephrine 32 mg In 0 Sodium Chloride 0.9% 218 ml @ 0.05 MCG/KG/MIN 1. 807 mls/hr IV .Q24H [facility] Rx#:[id number] Propofol 1,000 mg In 374.843 200.000 Empty Bag 1 bag @ Titrate IV .Q0M [facility] Rx#: [id number] fentaNYL (PF) 1,000 mcg 53.466 75.145 In Sodium Chloride 0.9% 80 ml @ 1 MCG/KG/HR 7.98 mls/hr IV .[id number] [facility] Rx #:[id number] Output: Urine 1530 2875 75 Other: Voiding Method Indwelling Catheter Indwelling Catheter ABP, PAP, CO, CI - Last Documented Arterial Blood Pressure 134/56 - Exam 48-year-old male has now been intubated is sedated and mechanically Ventilated HEENT: Anicteric conjunctiva are pink and moist nasal mucosa grossly intact without significant lesions, there is no thrush. Neck: no lymphadenopathy tracheostomy tube in place Lungs: Symmetrical air entry is noted coarse scattered crackles patient is having some gasping respirations with each breath Heart: Regular rate and rhythm with an audible S1-S2, no S3 no S4. There is no significant murmur click or rub, PMI was nondisplaced. Abdomen: Positive bowel sounds soft and nontender without palpable masses or organomegaly. There was no guarding or rebound. Prior PEG tube site is well- healed Extremities: The upper extremities have excellent pulses they are symmetric, no significant petechiae or telangiectasia. No splinter hemorrhages were noted. The lower extremities are free from significant edema. The peripheral pulses were 2+ and symmetric. Evidence of muscular wasting Neuro:sedated, no longer paralyzed - Labs CBC & Chem 7: 01/06/19 04:40 01/06/19 04:40 Labs: Abnormal Lab Results - Last 24 Hours (Table) 01/05/19 01/05/19 01/05/19 Range/Units 03:51 08:38 23:35 WBC (3.8-10.6) k/uL RBC (4.30-5.90) m/uL Hgb (13.0-17.5) gm/dL Hct (39.0-53.0) % MCHC (31.0-37.0) g/dL RDW (11.5-15.5) % Neutrophils # (1.3-7.7) k/uL Lymphocytes # (1.0-4.8) k/uL ABG pH 7.17 L* (7.35-7.45) ABG pCO2 100 H* 84 H* (35-45) mmHg ABG pO2 (83-108) mmHg ABG HCO3 (21-25) mmol/L ABG Total CO2 (19-24) mmol/L ABG O2 Saturation (94-97) % Carbon Dioxide (22-30) mmol/L BUN (9-20) mg/dL Creatinine (0.66-1.25) mg/dL Glucose (74-99) mg/dL POC Glucose (mg/dL) 158 H (75-99) mg/dL Magnesium (1.6-2.3) mg/dL 01/06/19 01/06/19 01/06/19 Range/Units 04:40 04:40 04:45 WBC 17.1 H (3.8-10.6) k/uL RBC 3.45 L (4.30-5.90) m/uL Hgb 10.2 L (13.0-17.5) gm/dL Hct 34.3 L (39.0-53.0) % MCHC 29.8 L (31.0-37.0) g/dL RDW 18.3 H (11.5-15.5) % Neutrophils # 15.9 H (1.3-7.7) k/uL Lymphocytes # 0.5 L (1.0-4.8) k/uL ABG pH 7.28 L (7.35-7.45) ABG pCO2 93 H* (35-45) mmHg ABG pO2 (83-108) mmHg ABG HCO3 43 H* (21-25) mmol/L ABG Total CO2 46 H (19-24) mmol/L ABG O2 Saturation (94-97) % Carbon Dioxide 42 H* (22-30) mmol/L BUN 28 H (9-20) mg/dL Creatinine 0.43 L (0.66-1.25) mg/dL Glucose 154 H (74-99) mg/dL POC Glucose (mg/dL) (75-99) mg/dL Magnesium 2.5 H (1.6-2.3) mg/dL 01/06/19 01/06/19 01/06/19 Range/Units 05:35 10:15 12:01 WBC (3.8-10.6) k/uL RBC (4.30-5.90) m/uL Hgb (13.0-17.5) gm/dL Hct (39.0-53.0) % MCHC (31.0-37.0) g/dL RDW (11.5-15.5) % Neutrophils # (1.3-7.7) k/uL Lymphocytes # (1.0-4.8) k/uL ABG pH (7.35-7.45) ABG pCO2 76 H* (35-45) mmHg ABG pO2 65 L (83-108) mmHg ABG HCO3 47 H* (21-25) mmol/L ABG Total CO2 49 H (19-24) mmol/L ABG O2 Saturation 92.7 L (94-97) % Carbon Dioxide (22-30) mmol/L BUN (9-20) mg/dL Creatinine (0.66-1.25) mg/dL Glucose (74-99) mg/dL POC Glucose (mg/dL) 145 H 167 H (75-99) mg/dL Magnesium (1.6-2.3) mg/dL 01/06/19 Range/Units 18:22 WBC (3.8-10.6) k/uL RBC (4.30-5.90) m/uL Hgb (13.0-17.5) gm/dL Hct (39.0-53.0) % MCHC (31.0-37.0) g/dL RDW (11.5-15.5) % Neutrophils # (1.3-7.7) k/uL Lymphocytes # (1.0-4.8) k/uL ABG pH (7.35-7.45) ABG pCO2 (35-45) mmHg ABG pO2 (83-108) mmHg ABG HCO3 (21-25) mmol/L ABG Total CO2 (19-24) mmol/L ABG O2 Saturation (94-97) % Carbon Dioxide (22-30) mmol/L BUN (9-20) mg/dL Creatinine (0.66-1.25) mg/dL Glucose (74-99) mg/dL POC Glucose (mg/dL) 160 H (75-99) mg/dL Magnesium (1.6-2.3) mg/dL Laboratory Results WBC 17.1 k/uL (3.8-10.6) H 01/06/19 04:40 RBC 3.45 m/uL (4.30-5.90) L 01/06/19 04:40 Hgb 10.2 gm/dL (13.0-17.5) L 01/06/19 04:40 Hct 34.3 % (39.0-53.0) L 01/06/19 04:40 MCV 99.5 fL (80.0-100.0) 01/06/19 04:40 MCH 29.6 pg (25.0-35.0) 01/06/19 04:40 MCHC 29.8 g/dL (31.0-37.0) L 01/06/19 04:40 RDW 18.3 % (11.5-15.5) H 01/06/19 04:40 Plt Count 152 k/uL (150-450) 01/06/19 04:40 Neutrophils % 93 % 01/06/19 04:40 Neutrophils % (Manual) 82 % 01/04/19 04:26 Band Neutrophils % 3 % 01/04/19 04:26 Lymphocytes % 3 % 01/06/19 04:40 Lymphocytes % (Manual) 10 % 01/04/19 04:26 Monocytes % 3 % 01/06/19 04:40 Monocytes % (Manual) 5 % 01/04/19 04:26 Eosinophils % 0 % 01/06/19 04:40 Basophils % 1 % 01/06/19 04:40 Neutrophils # 15.9 k/uL (1.3-7.7) H 01/06/19 04:40 Neutrophils # (Manual) 10.20 k/uL (1.3-7.7) H 01/04/19 04:26 Lymphocytes # 0.5 k/uL (1.0-4.8) L 01/06/19 04:40 Lymphocytes # (Manual) 1.20 k/uL (1.0-4.8) 01/04/19 04:26 Monocytes # 0.5 k/uL (0-1.0) 01/06/19 04:40 Monocytes # (Manual) 0.60 k/uL (0-1.0) 01/04/19 04:26 Eosinophils # 0.1 k/uL (0-0.7) 01/06/19 04:40 Basophils # 0.1 k/uL (0-0.2) 01/06/19 04:40 Nucleated RBCs 0 /100 WBC (0-0) 01/04/19 04:26 Manual Slide Review Performed 01/04/19 04:26 Hypochromasia Marked 01/06/19 04:40 Poikilocytosis Slight 01/02/19 06:30 Anisocytosis Slight 01/06/19 04:40 Macrocytosis Slight 01/06/19 04:40 PT 10.7 sec (9.0-12.0) 12/24/18 10:00 INR 1.0 (<1.2) 12/24/18 10:00 APTT 25.3 sec (22.0-30.0) 12/24/18 10:00 Sample Site derek 01/06/19 10:15 ABG pH 7.40 (7.35-7.45) 01/06/19 10:15 ABG pCO2 76 mmHg (35-45) H* 01/06/19 10:15 ABG pO2 65 mmHg (83-108) L 01/06/19 10:15 ABG HCO3 47 mmol/L (21-25) H* 01/06/19 10:15 ABG Total CO2 49 mmol/L (19-24) H 01/06/19 10:15 ABG O2 Saturation 92.7 % (94-97) L 01/06/19 10:15 ABG Base Excess 21.8 mmol/L 01/06/19 10:15 Jose Test Yes 01/06/19 10:15 FiO2 55 % 01/06/19 10:15 Sodium 141 mmol/L (137-145) 01/06/19 04:40 Potassium 4.5 mmol/L (3.5-5.1) 01/06/19 04:40 Chloride 100 mmol/L (98-107) 01/06/19 04:40 Carbon Dioxide 42 mmol/L (22-30) H* 01/06/19 04:40 Anion Gap -1 mmol/L 01/06/19 04:40 BUN 28 mg/dL (9-20) H 01/06/19 04:40 Creatinine 0.43 mg/dL (0.66-1.25) L 01/06/19 04:40 Est GFR (CKD-EPI)AfAm >90 (>60 ml/min/1.73 sqM) 01/06/19 04:40 Est GFR (CKD-EPI)NonAf >90 (>60 ml/min/1.73 sqM) 01/06/19 04:40 Glucose 154 mg/dL (74-99) H 01/06/19 04:40 POC Glucose (mg/dL) 160 mg/dL (75-99) H 01/06/19 18:22 POC Glu [employer] ID Angi Comer 01/06/19 18:22 Calcium 8.9 mg/dL (8.4-10.2) 01/06/19 04:40 Ionized Calcium [place] 5.2 mg/dL (4.5-5.3) 01/06/19 04:40 Phosphorus 2.8 mg/dL (2.5-4.5) 01/06/19 04:40 Magnesium 2.5 mg/dL (1.6-2.3) H 01/06/19 04:40 Total Bilirubin 0.6 mg/dL (0.2-1.3) 12/29/18 11:45 AST 36 U/L (17-59) 12/29/18 11:45 ALT 23 U/L (21-72) 12/29/18 11:45 Alkaline Phosphatase 145 U/L (38-126) H 12/29/18 11:45 Creatine Kinase <20 U/L (55-170) L 01/01/19 04:00 NT-Pro-B Natriuret Pep 787 pg/mL 12/25/18 06:37 Total Protein 6.0 g/dL (6.3-8.2) L 12/29/18 11:45 Albumin 2.8 g/dL (3.5-5.0) L 01/05/19 04:50 Triglycerides 110 mg/dL (<150) 01/01/19 04:00 Urine Color Yellow 12/24/18 11:45 Urine Appearance Clear (Clear) 12/24/18 11:45 Urine pH 7.0 (5.0-8.0) 12/24/18 11:45 Ur Specific [place] 1.008 (1.001-1.035) 12/24/18 11:45 Urine Protein Trace (Negative) H 12/24/18 11:45 Urine Glucose (UA) Negative (Negative) 12/24/18 11:45 Urine Ketones Negative (Negative) 12/24/18 11:45 Urine Blood Negative (Negative) 12/24/18 11:45 Urine Nitrite Negative (Negative) 12/24/18 11:45 Urine Bilirubin Negative (Negative) 12/24/18 11:45 Urine Urobilinogen 2.0 mg/dL (<2.0) 12/24/18 11:45 Ur Leukocyte Esterase Negative (Negative) 12/24/18 11:45 Vancomycin Trough 18.6 ug/mL 01/06/19 13:59 Influenza Type A RNA Not Detected (Not Detectd) 12/24/18 10:15 Influenza Type B (PCR) Not Detected (Not Detectd) 12/24/18 10:15 Microbiology 12/31/18 20:40 Sputum Gram Stain - Final 12/31/18 20:40 Sputum Sputum Culture - Final Fabi albicans Fabi glabrata 12/29/18 23:54 Sputum Gram Stain - Final 12/29/18 23:54 Sputum Sputum Culture - Final Fabi glabrata Fabi albicans 12/24/18 11:30 Blood Blood Culture - Final No Growth after 144 hours 12/24/18 09:40 Blood Blood Culture - Final No Growth after 144 hours 12/26/18 03:35 Sputum Gram Stain - Final 12/26/18 03:35 Sputum Sputum Culture - Final Assessment and Plan (1) Esophageal cancer Current Visit: No Status: Acute Code(s): C15.9 - MALIGNANT NEOPLASM OF ESOPHAGUS, UNSPECIFIED SNOMED Code(s): 883083376 (2) Fever Narrative/Plan: 48 -year-old male presents to Hospital feeling poorly with onset of increasing fever malaise and chills. The patient has a known history of esophageal cancer, status post gastric pull-through who has already received his original course of chemotherapy and radiation. But is now receiving further chemotherapy with evidence of ongoing adenocarcinoma. The patient is starting to feel somewhat better since admission and initiation of fluids and antibiotic therapy. The patient has had imaging studies including the computed tomography scan that is revealing some ongoing difficulties with pulmonary infiltrates. Patient is currently receiving cefepime and vancomycin and tolerating that well. We'll need to have further cultures to help further define his antibiotic therapy. He however is not neutropenic at this time. Would like to have the speech pathologist to evaluate the possibility of silent aspiration or reflux that could be causing the current pulmonary changes by computed tomography scan. Leukocytosis appears to be in the bases of the current infectious process. 12/25/2018 patient is had worsening of his status. Respiratory status is worsening. Concern as to ongoing aspiration as etiology for his current respiratory distress and pulmonary changes. CT angiogram requested. Pulmonary critical care evaluating There are multiple other concerns including lymphangitic spread of his malignancy, acute lung injury, acute lung injury from chemotherapy. We've asked for speech therapy to evaluate if he is having ongoing significant aspiration. Fever has responded antibiotic therapy await cultures to further direct antibiotic therapy. 12/26/2018 patient's respiratory status is now stabilized on high flow oxygen. His nausea is improved no further emesis. Ongoing evaluation as to the etiology of his pulmonary infiltrates, however ongoing aspiration is of great concern. His fevers improved. We'll continue current antibiotic therapy while evaluations continue. December 27, 2018 patient is stable today. He is without other new acute complaints. Does have occasional waves of nausea which became more short of breath other than this he has no new complaints today. He is afebrile. Continues to struggle with his intake. We have asked for protein supplements to try to improve his strength. December 28, 2018 patient is not improving. He's been made fully nothing by mouth again. Respiratory status is not improving despite the high flow oxygen which is now been increased to even a higher level. The patient is dyspneic with any acti vity. I did discuss with the that it is likely in the next short period of time if he does not improve he will require intubation mechanical ventilation. And with his status likely would not be able to come well enough to ever come off the ventilator. She does understand relates that would give her an opportunity to be able to say goodbye as well as the family. 12/29/2018 the patient continues to decline. He is now been intubated, sedated and mechanically ventilated. Marginal oxygenation only is being achieved with 100% oxygen PEEP of 15. Pulmonary critical care is hopeful that once he is stabilized his oxygenation will start to improve. given the patient is likely having ongoing aspiration event Prognosis is very poor. 12/30/2018 patient's status has further decline. He is now paralyzed and on vasopressor therapy. Family will monitor for a day or so. If there is no improvement we'll likely discontinue current aggressive therapy in face of his progressive malignancy. Continue current antimicrobials with meropenem, fluconazole. 12/29/2018 patient is noted tracheostomy tube placed which is allowed removal of paralysis. Antimicrobial therapy continues of meropenem, fluconazole was transitioned to Eraxis given the isolation of Fabi glabrata. The case is discussed with oncology, they clarify the patient has active malignancy and receiving chemotherapy up until the time of the admission. Given therapy was put on hold because of his poor functional status. There is no evidence the patient was cancer free. There is ongoing concern that the patient's lack of improvement from his pulmonary status is from lymphangitic spread into the lungs. Current Visit: Yes Status: Acute Code(s): R50.9 - FEVER, UNSPECIFIED SNOMED Code(s): 116207952 (3) Pulmonary infiltrates Current Visit: Yes Status: Acute Code(s): R91.8 - OTHER NONSPECIFIC ABNORMAL FINDING OF LUNG FIELD SNOMED Code(s): 400534396
[2019-01-06] MEDS: SODIUM CHLORIDE 0.9% 1,000 ML IV SCH (22:53)
[2019-01-06 23:53] LABS: Glucose,Whole Blood 151 mg/dL (75-99)
[2019-01-07] MEDS: methylPREDNISolone SOD SUCCI 125 MG/2 ML VIAL IV SCH ×3 (00:11→16:44)
[2019-01-07] MEDS: INSULIN ASPART (NovoLOG) 100 UNIT/ML VIAL SQ SCH ×4 (00:12→18:00)
[2019-01-07] MEDS: PROPOFOL 1,000 MG in EMPTY BAG 1 BAG IV SCH ×4 (00:13→23:46)
[2019-01-07] MEDS: HEPARIN SODIUM,PORCINE 5,000 UNIT/ML 1 ML VIAL SQ SCH ×3 (00:15→16:44)
[2019-01-07] MEDS: MEROPENEM 1 GM in SODIUM CHLORIDE 0.9% 100 ML IVPB SCH ×3 (00:15→16:46)
[2019-01-07] MEDS: IPRATROPIUM-ALBUTEROL 3 ML NEB INHALATION SCH ×5 (03:31→19:20)
[2019-01-07] MEDS: HYDROmorphone 1 MG/ML 1 ML SYRINGE IVP PRN ×5 (04:51→22:55)
[2019-01-07 05:19] LABS: Anisocytosis Slight; Basophils % (A) 0 %; Eosinophils % (A) 0 %; HCT 32.7 % (39.0-53.0); HGB 9.9 gm/dL (13.0-17.5); Hypochromasia Marked; Lymphocytes # (A) 0.5 k/uL (1.0-4.8); Lymphocytes % (A) 4 %; MCH 29.2 pg (25.0-35.0); MCHC 30.2 g/dL (31.0-37.0); MCV 96.7 fL (80.0-100.0); Macrocytosis Slight; Mean Platelet Volume 9.1; Monocytes # (A) 0.4 k/uL (0-1.0); Monocytes % (A) 3 %; Neutrophils # (A) 11.6 k/uL (1.3-7.7); Neutrophils % (A) 92 %; Platelet Count 166 k/uL (150-450); RBC 3.39 m/uL (4.30-5.90); RDW 18.7 % (11.5-15.5); WBC 12.6 k/uL (3.8-10.6)
[2019-01-07 06:09] LABS: Glucose,Whole Blood 152 mg/dL (75-99)
[2019-01-07 06:16] LABS: African American GFR (CKD) >90 (>60 ml/min/1.73 sqM); Blood Urea Nitrogen 28 mg/dL (9-20); Calcium 7.4 mg/dL (8.4-10.2); Chloride 105 mmol/L (98-107); Glucose 147 mg/dL (74-99); Phosphorus 1.4 mg/dL (2.5-4.5); Potassium 3.3 mmol/L (3.5-5.1); Sodium 144 mmol/L (137-145)
[2019-01-07] MEDS: LORazepam 2 MG/ML INJ IV PRN ×2 (06:19→11:47)
[2019-01-07 06:24] LABS: Anion Gap 1 mmol/L; Carbon Dioxide 38 mmol/L (22-30)
[2019-01-07] MEDS: NOREPINEPHRINE 32 MG in SODIUM CHLORIDE 0.9% 218 ML IV SCH (07:15)
[2019-01-07 07:16] LABS: ABG Base Excess 19.8 mmol/L; ABG Oxygen Saturation 98.7 % (94-97); ABG PCO2 59 mmHg (35-45); ABG PH 7.48 (7.35-7.45); ABG PO2 139 mmHg (83-108); ABG TCO2 45 mmol/L (19-24)
[2019-01-07] MEDS: BUDESONIDE 1 MG/2 ML NEBU INHALATION SCH ×2 (07:21→19:20)
[2019-01-07] MEDS: FORMOTEROL FUMARATE 20 MCG/2 ML NEBU INHALATION SCH ×2 (07:21→19:20)
[2019-01-07] MEDS ORDERED: Potassium Replacement Protocol 1 EACH MISC MISCELLANE PRN (07:24)
[2019-01-07 07:30] LABS: ABG HCO3 43 mmol/L (21-25); Allen Test Performed? no
[2019-01-07] MEDS: VANCOMYCIN 1,250 MG in SODIUM CHLORIDE 0.9% 250 ML IVPB SCH ×3 (07:59→23:46)
[2019-01-07] MEDS: ANIDULAFUNGIN 100 MG in SODIUM CHLORIDE 0.9% 100 ML IVPB SCH (08:00)
[2019-01-07] MEDS: CHLORHEXIDINE GLUCONATE 15 ML CUP MUCOUS MEM SCH ×2 (08:00→20:28)
[2019-01-07] MEDS: FUROSEMIDE 10 MG/ML 4 ML VIAL IV SCH (08:00)
[2019-01-07] MEDS: POTASSIUM CHLORIDE 20 MEQ in WATER FOR INJECTION 1 100ML.BAG IVPB SCH ×2 (08:00→10:21)
[2019-01-07] MEDS: SENNOSIDES-DOCUSATE SODIUM 1 EACH TAB PO SCH ×2 (08:01→21:20)
[2019-01-07] MEDS: PANTOPRAZOLE 40 MG/10 ML VIAL IVP SCH ×2 (08:01→20:27)
--- NOTE | 2019-01-07 08:09 | P.OP ---
Date of Procedure: 01/04/19 Preoperative Diagnosis: Respiratory failure Postoperative Diagnosis: Respiratory failure Procedure(s) Performed: Tracheostomy Anesthesia: GEOVANNA Surgeon: Srinivasa Jensen Estimated Blood Loss (ml): 5 Pathology: none sent Condition: stable Disposition: PACU Description of Procedure: Patient's placed on the operating table in the supine position. He received general anesthesia. His neck was prepped and draped in sterile fashion. A standard Rolo incision was made proximal to 2 cm above the sternal notch. Using left cautery the subcu tissue divided. The platysma was divided. The strap muscle were divided in the midline. The thyroid gland was exposed. This was divided midline using left cautery. The trachea the exposed. The endotracheal tube was placed the right mainstem bronchus. And then using the left cautery the tracheotomy performed between the second and third tracheal rings. A #8 Prolene a ventral tube was then placed into the trachea after the endotracheal tube was brought back. The tracheostomy tube was then connected to the ventilator. End-tidal CO2 was confirmed. The patient had good tidal mobilized. At this point the retractors withdrawn. Skin was closed with interrupted 3-0 nylon suture. Umbilical tape was used to hold the tracheostomy placed. Patient was sent to the ICU in stable condition.
[2019-01-07] MEDS: POTASSIUM PHOSPHATE 10 MMOL in SODIUM CHLORIDE 0.9% 100 ML IV SCH ×3 (08:32→12:51)
--- NOTE | 2019-01-07 08:43 | XR ---
EXAMINATION TYPE: XR chest 1V portable DATE OF EXAM: 01/07/2019 COMPARISON: 01/06/2019 INDICATION: Fluid status trach placement TECHNIQUE: Single frontal view of the chest is obtained. FINDINGS: The heart size is normal. The pulmonary vasculature is normal. Mild bibasilar infiltrates are present. This is improved from comparison. Small left pleural effusion appears stable. Right-sided port and left central venous catheter position is unchanged. Tracheostomy tube is in the midline. IMPRESSION: 1. Improving bibasilar infiltrates. 2. Stable small left pleural effusion. 3. Lines and catheters stable in position.
[2019-01-07 12:00] LABS: Glucose,Whole Blood 144 mg/dL (75-99)
--- NOTE | 2019-01-07 12:34 | P.PN ---
Subjective Progress Note Date: 01/07/19 Principal diagnosis: Acute hypoxic respiratory failure/ARDS with diffuse bilateral pulmonary infiltrates. On 01/05/2019, I'm seeing this patient for a follow-up. The patient is post tracheostomy tube insertion that was done yesterday without any complications. We are trying to wean him off the Nimbex for now. We were able to get it off yesterday yet briefly he required minimal paralysis to maintain synchrony. Note that this morning, the patient was quite comfortable. I changed him to VC loss mode with a tidal volume of 400 and the rate of 34 with an FiO2 of 55% and PEEP of 12. He is I time is 1. the patient is having some leaks around the tracheostomy tube and he is losing some volumes. This is probably in the form of 50 mL and for that reason I increased the tidal volume to counteract for that. His static pressures remains below 35. His blood gases on the current vent settings shows a pH of 7. episodes of 84 and pO2 of 81. The patient's chest x-ray shows no changes. Tracheostomy tube is in a good location. White cell count is up to 21. Nevertheless he does not have any fever. The orogastric tube has been removed. The patient has TPN for nutritional support. We will still being diuresis with IV Lasix. He was given Diamox for metabolic alkalosis. His serum bicarbs at 38. He is on IV Lasix. The fluid balance is - 2.4 L over the past 24 hours. The patient is receiving Lasix 40 mg IV push every 24 hours. He remains on broad-spectrum antibiotics. He remains on IV Solu-Medrol. His cardiac rhythm is sinus. He is on a combination of propofol for sedation index was being is less for paralysis. Tracheostomy tube is in place for now. This is a Bivona tracheostomy tube #8 with a foamy cuff Reevaluated today on 01/06/2019, patient remains on mechanical ventilation, off levo fed, off Nimbex, ventilator settings are tidal volume of 500, assist control rate of 30, FiO2 55%, and PEEP of 12. Patient is on fentanyl at 75 mcg/h, his also on propofol at 75 mcg/kg/m. He is also on TPN, continues to have significant leak from the tracheostomy site, and were making up for the leak by increasing his tidal volume from 400-500. He is actually getting about 400 mL of tidal volume. Repeat ABG showed a pO2 of 65 is CO2 of 76 pH of 7.40. CBC showed WBC count of 17 hemoglobin of 10.2. Chest x-ray showed small left pleural effusion and bibasilar reticulonodular infiltrates and/or edema. Patient is fully sedated, and his ventilator settings were adjusted accordingly. Reevaluated today on 01/07/2019, remains on mechanical ventilation, presently off norepinephrine for the last 1 hour. His ventilator settings are assist control rate of 30 tidal volume of 500, FiO2 of 50%, PEEP of 12. Patient is presently off norepinephrine, remains on fentanyl at 1 mcg/kg/h, and he is on propofol at 50 mcg/kg/m. Remains on TPN, labs including ABG showed a pO2 of 139 pCO2 of 59 pH of 7.48. His WBC count is 12.6 hemoglobin is 9.9 electrolytes were reviewed his bicarb is elevated at 38, BUN is 28 creatinine 0.32. Patient continues to have about 100 mL leak per tidal volume through the tracheostomy. And were making up for this volume loss by increasing his tidal volume up to 500 and he seems to be getting about 400 mL of tidal volume. FiO2 was cut down to 50%, and the plan is to cut down the PEEP hopefully to 10 or maybe 8. Family is at bedside, and clearly the patient is nowhere near weaning but will try to give him a sedation holiday today, and at least assess mental status. We will hold propofol and fentanyl for a short of time and assess mental status. Chest x-ray is showing some improvement especially in the left lower lobe infiltrate and left pleural effusion. Remains on antibiotics for presumptive aspiration pneumonia. Objective - Vital Signs Vital signs: Vital Signs Temp 98.9 F 01/07/19 08:00 Pulse 80 01/07/19 11:00 Resp 31 H 01/07/19 11:00 BP 94/52 01/07/19 07:30 Pulse Ox 93 L 01/07/19 11:00 Intake & Output 01/06/19 01/07/19 01/07/19 18:59 06:59 18:59 Intake Total 2401.145 6197.472 5522 Output Total 2875 1030 1725 Balance -473.855 887.271 -313 Weight 79.6 kg Intake: IV 2126 1493 1312 Anidulafungin 100 mg In 100 Sodium Chloride 0.9% 100 ml @ 84 mls/hr IVPB DAILY [facility] Rx#:[id number] Anidulafungin 200 mg In 260 Sodium Chloride 0.9% 200 ml @ 84 mls/hr IVPB ONCE ONE Rx#:[id number] Calcium Gluconate 1 gm 840 850 350 Potassium Phosphate 10 mmol Sodium Chloride 2. 5MEQ/ml Vial 25 meq In Amino Acid 5%-D15w 1,000 ml @ 70 mls/hr IV .BY DURATION [facility] Rx#: [id number] Fluconazole in NaCl,Iso- 50 Osm 100 mg In Saline 1 50ml.bag @ 50 mls/hr IVPB DAILY [facility] Rx#:[id number] Meropenem 1 gm In Sodium 200 100 100 Chloride 0.9% 100 ml @ 200 mls/hr IVPB Q8HR [facility] Rx#:[id number] Potassium Chloride 20 meq 200 In Water For Injection 1 100ml.bag @ 50 mls/hr IVPB Q2H [facility] Rx#: [id number] Potassium Phosphate 10 200 mmol In Sodium Chloride 0 .9% 100 ml @ 50 mls/hr IV Q2H [facility] Rx#:[id number] Sodium Chloride 0.9% 1, 240 260 100 000 ml @ 20 mls/hr IV . Q24H [facility] Rx#:[id number] Vanco 250 Vancomycin 1,250 mg In 500 250 Sodium Chloride 0.9% 250 ml @ 125 mls/hr IVPB Q8H [facility] Rx#:[id number] pressure bag 36 33 12 Intake, IV Titration 275.145 424.271 100 Amount Norepinephrine 32 mg In 0 24.948 Sodium Chloride 0.9% 218 ml @ 0.05 MCG/KG/MIN 1. 807 mls/hr IV .Q24H [facility] Rx#:[id number] Propofol 1,000 mg In 200.000 299.323 100 Empty Bag 1 bag @ Titrate IV .Q0M [facility] Rx#: [id number] fentaNYL (PF) 1,000 mcg 75.145 100 In Sodium Chloride 0.9% 80 ml @ 1 MCG/KG/HR 7.98 mls/hr IV .[id number] [facility] Rx #:[id number] Output: Urine 2875 1030 1725 Other: Voiding Method Indwelling Catheter Indwelling Catheter Indwelling Catheter # Voids 1 ABP, PAP, CO, CI - Last Documented Arterial Blood Pressure 111/51 - Exam General: Revealed a 48-year-old white male sedated, on mechanical ventilation, remains on fentanyl and propofol drip Head: Atraumatic, normocephalic Neck: Supple, Neck was supple and without jugular venous distension, thyromegaly, or carotid bruits. Carotids were easily palpable bilaterally. Tracheostomy seems to be intact, Mouth: Normal mucous membranes, moist, no thrush noted. Neck: No Palpable cervical, tracheostomy is intact. No neck masses. Heart: Normal S1 and S2, no gallop. No murmur. heart sound was noted. There were no murmurs, rubs, clicks, or gallops. Lungs: Crackles and rhonchi at the bases. No wheezing. Symmetrical chest expansion. No chest wall tenderness Abdomen: Soft nontender no megaly no rebound no guarding. Extremities: No clubbing edema or cyanosis, good pulses bilaterally Neurological: Cannot be assessed, patient is fully sedated, however plan to hold propofol and fentanyl today and assess mental status fully if we Psych: Unable to perform due to the above-mentioned Examination of the skin revealed no evidence of significant rashes, suspicious appearing nevi or other concerning lesions. - Labs CBC & Chem 7: 01/07/19 04:55 01/07/19 04:55 Labs: Abnormal Lab Results - Last 24 Hours (Table) 01/06/19 01/06/19 01/07/19 Range/Units 18:22 23:50 04:55 WBC (3.8-10.6) k/uL RBC (4.30-5.90) m/uL Hgb (13.0-17.5) gm/dL Hct (39.0-53.0) % MCHC (31.0-37.0) g/dL RDW (11.5-15.5) % Neutrophils # (1.3-7.7) k/uL Lymphocytes # (1.0-4.8) k/uL ABG pH (7.35-7.45) ABG pCO2 (35-45) mmHg ABG pO2 (83-108) mmHg ABG HCO3 (21-25) mmol/L ABG Total CO2 (19-24) mmol/L ABG O2 Saturation (94-97) % Potassium 3.3 L (3.5-5.1) mmol/L Carbon Dioxide 38 H (22-30) mmol/L BUN 28 H (9-20) mg/dL Creatinine 0.32 L (0.66-1.25) mg/dL Glucose 147 H (74-99) mg/dL POC Glucose (mg/dL) 160 H 151 H (75-99) mg/dL Calcium 7.4 L (8.4-10.2) mg/dL Phosphorus 1.4 L (2.5-4.5) mg/dL 01/07/19 01/07/19 01/07/19 Range/Units 04:55 06:06 07:10 WBC 12.6 H (3.8-10.6) k/uL RBC 3.39 L (4.30-5.90) m/uL Hgb 9.9 L (13.0-17.5) gm/dL Hct 32.7 L (39.0-53.0) % MCHC 30.2 L (31.0-37.0) g/dL RDW 18.7 H (11.5-15.5) % Neutrophils # 11.6 H (1.3-7.7) k/uL Lymphocytes # 0.5 L (1.0-4.8) k/uL ABG pH 7.48 H (7.35-7.45) ABG pCO2 59 H (35-45) mmHg ABG pO2 139 H (83-108) mmHg ABG HCO3 43 H* (21-25) mmol/L ABG Total CO2 45 H (19-24) mmol/L ABG O2 Saturation 98.7 H (94-97) % Potassium (3.5-5.1) mmol/L Carbon Dioxide (22-30) mmol/L BUN (9-20) mg/dL Creatinine (0.66-1.25) mg/dL Glucose (74-99) mg/dL POC Glucose (mg/dL) 152 H (75-99) mg/dL Calcium (8.4-10.2) mg/dL Phosphorus (2.5-4.5) mg/dL 01/07/19 Range/Units 11:56 WBC (3.8-10.6) k/uL RBC (4.30-5.90) m/uL Hgb (13.0-17.5) gm/dL Hct (39.0-53.0) % MCHC (31.0-37.0) g/dL RDW (11.5-15.5) % Neutrophils # (1.3-7.7) k/uL Lymphocytes # (1.0-4.8) k/uL ABG pH (7.35-7.45) ABG pCO2 (35-45) mmHg ABG pO2 (83-108) mmHg ABG HCO3 (21-25) mmol/L ABG Total CO2 (19-24) mmol/L ABG O2 Saturation (94-97) % Potassium (3.5-5.1) mmol/L Carbon Dioxide (22-30) mmol/L BUN (9-20) mg/dL Creatinine (0.66-1.25) mg/dL Glucose (74-99) mg/dL POC Glucose (mg/dL) 144 H (75-99) mg/dL Calcium (8.4-10.2) mg/dL Phosphorus (2.5-4.5) mg/dL Assessment and Plan Assessment: Impression: 1 acute hypoxic respiratory failure/ARDS with bilateral pulmonary infiltrates, underlying pneumonia/aspiration pneumonia is not entirely ruled out. It is very likely considering his presentation. 2 metastatic esophageal cancer 3 recurrent episodes of aspiration pneumonia 4 oropharyngeal candidiasis, improving on Diflucan. 5 history of generalized anxiety disorder 6 acute septic shock and acute hypotension on presentation, most likely related to sepsis, most likely source is pneumonia. Recommendation: Continue ventilatory support, nutritional support, antibiotics, steroids, adjust ventilator settings accordingly hopefully go down the FiO2 and titrate the PEEP down to 8, assess mental status off sedation today, not ready for weaning at this point yet. Continue GI and DVT prophylaxis, CODE STATUS was discussed again with the family, and the patient is presently DO NOT RESUSCITATE. Prognosis remains extremely poor and guarded, critical care time is 34 minutes. Time with Patient: Greater than 30
[2019-01-07 16:29] LABS: ALT 56 U/L (21-72); AST 49 U/L (17-59); African American GFR (CKD) >90 (>60 ml/min/1.73 sqM); Albumin 2.3 g/dL (3.5-5.0); Alkaline Phosphatase 120 U/L (38-126); Blood Urea Nitrogen 29 mg/dL (9-20); Calcium 8.3 mg/dL (8.4-10.2); Chloride 100 mmol/L (98-107); Glucose 145 mg/dL (74-99); Sodium 141 mmol/L (137-145); Total Bilirubin 0.7 mg/dL (0.2-1.3); Total Protein 4.7 g/dL (6.3-8.2)
--- NOTE | 2019-01-07 16:33 | P.PN ---
Subjective Progress Note Date: 01/07/19 This is a 48-year-old gentleman with history of esophageal cancer, completed radiation and chemotherapy, history of gastric pull-through, recent biopsy reporting adenocarcinoma with chemotherapy resumed. T-max on admission 100.3, WBC 14.6, neutrophils normal, hemoglobin ,platelets, electrolytes essentially normal.Currently T-max 100.2, WBC improving, down to 12.4.. Maintained on IV fluid hydration of D5.45 MLS per hour, cefepime, vancomycin. Speech consulted to evaluate for silent aspiration(prior history of PEG tube which has been discontinued). Chest x-ray reported new multifocal airspace disease possible multifocal pneumonia versus pulmonary edema. F/U chest x-ray this morning with no significant change. On admission patient had been satting high 90s on room air. During the afternoon patient sats decreased to 93-94%. Last night, patient desatted to 70s to 80s %, A teamed called, received a dose of Lasix 40 IV push and placed on BiPAP. BiPAP weaned off currently on 15 L high flow nasal cannula this morning, maintaining O2 sats of 93%. No further nausea vomiting or diarrhea. Tolerating clear liquid diet. 12/26/2018 Tested negative for influenza, CT negative for PE, received a couple doses of Lasix for potential pulmonary edema, Swallow evaluation per speech therapy with no aspiration observed, universal aspiration precautions recommended..During the night, patient desatted, did not respond to BiPAP, transferred to ICU and placed on Airvo. Maintaining O2 sats of low 90s on 80% airvo. Maintained on IV antibiotics of vancomycin, Maxipime as per infectious disease. T-max 100.4,WBC WNL. Preliminary blood cultures negative at 24 hours .Continues on nebulized bronchodilators. Feels better this morning. 12/27/2018: She remains on high flow nasal cannula oxygen. Pulse ox is 92%. He remains on IV vancomycin plus Maxipime for antibiotic coverage. Solu-Medrol was started yesterday and seems to help. He remains nothing by mouth for suspected chronic aspiration. His is at bedside. Chest x-ray today shows worsening interstitial airspace disease. Clinically he feels better. Staff report he is doing better. 12/28/2018: Patient's chest x-ray shortness of breath continue worsen. He is unable to move significantly not descending. He remains on Airvo. His remains at bedside. I discussed this case with Dr. Wade, he is considering bronchoscopy, but fears that he would end up being intubated and unable to ween.Exact cause of his symptoms are unknown without multifactorial due to aspiration pneumonia, chemical pneumonitis due to chemotherapy, and other factors. 12/29/2018 Maintained on vancomycin and cefepime as per ID. Remains airvo de pendent, maintaining O2 sats of 95% on 60%. chest x-ray reporting stable bilateral pneumonia, ARDS, or pulmonary edema; diffuse increase in opacification to the right lung. Recurrent emesis , aspiration risks changed to NPO, TPN ordered. Blood sugars controlled. Oral thrush, Diflucan initiated. T-max 99.9, WBC down to 15.1. 12/30/2018 respiratory status continued to deteriorate yesterday and patient required intubation yesterday afternoon. Chest x-ray reporting slight improvement in diffuse pulmonary edema, persistent interstitial opacity's bilaterally right more than left, bibasilar atelectasis. ABGs reflected severe respiratory acidosis this morning. FiO2 has been weaned down to 70%, PEEP has been weaned down to 14. Mild sinus tachycardia. Currently on pressor support of Levophed 40 mcgs, and on chemical paralysis with Nimbex. Right pupil fixed and dilated, unstable at this time for transfer to CT. potassium elevated at 6.2 received sodium bicarb D50, insulin, down to 5.8. Afebrile, White count up to 52, on Merrem ,Vancomycin and Diflucan. Repeat cultures sent. Maintained on TPN. Continues on nebulized bronchodilators, IV steroids 12/31/18 Maintained on Nimbex drip, ABGs improved with FiO2 decreased to 50% and PEEP down to 12%,cuff leak resolved with ETT repositioned.Levophed weaned down to 2 mcgs. Maintained on TPN. Continues on nebulized bronchodilators, IV s teroids. Aggressive fluid resuscitation decreased, positive fluid balance with extremity edema .Afebrile,cultures negative. 01/01/2019 sputum culture report and Fabi glabrata and Fabi albicans, repeat sputum culture pending. Maintained on IV antibiotics of vancomycin and Merrem.afebrile,WBC decreased to 12.7.Attempted Nimbex weaning, not tolerated, peak pressure reading, and oxygenating, desatted into the 80s.Nimbex resumed. patient was maintaining O2 sats in the high 80s, ABGs noted, including PO2 of 67. Vent changes: Rate decreased, FiO2 increased to 60%,complete maintained and 12. chest x-ray reporting mild improvement of bibasilar infiltrates. IV fluids decreased yesterday,continues on 0.9 at KVO, as well as TPN.24 hour I&O reflecting a negative fluid balance.Positive bowel movement this morning. 01/02/2019 Remains vent dependent on FiO2 of 60%/+12 Peep. Maintained on Nimbex and Diprovan. Dr. Padilla consulted regarding tracheostomy. Telemetry sinus rhythm to sinus tach. 01/03/2019: Patient remains in the intensive care unit, intubated, sedated and mechanically ventilated. His current PEEP is 12. FiO2 is still 60%. HEENT been able to wean off the paralytic agent. He remains on fluconazole, meropenem and vancomycin for antibiotic coverage. His is at bedside. Telemetry continues to show sinus rhythm. Achy ostomy is planned for the near future ba sed on his status. He is slightly improved today compared to yesterday. 01/05/2019: Patient remains in intensive care unit. He is sedated and paralyzed once again. He remains on mechanical ventilation, now through the tracheostomy tube. Tracheostomy was placed yesterday. His is at bedside, care discussed with her briefly. ICU nurse was also present. He remains on fluconazole, meropenem, and vancomycin for antibiotic coverage. propofol, Cistacuium and fentanyl for sedation and paralyzation. He also is now on TPN 01/06/19 maintained on vent support with FiO2 50%/+12 of PEEP via trach.. ABGs noted, rate and tidal volume adjusted ,mild cuff leak. Chest x-ray reporting stable persistent small left pleural effusion and bibasilar reticulonodular infiltrates/edema. Nimbex has been weaned off, maintained on both Diprovan and fentanyl. Continues on fluconazole, vancomycin and Maxipime as per ID. telemetry sinus rhythm to sinus tach. Afebrile. 01/07/2019 continues on IV antibiotics. Chest x-ray and ABGs Better. FiO2 decreased to 50%/+5 of PEEP. Desatted and FiO2 increased back to 55%. Fluctuating hypotension, on and off Levophed. Attempting to assess mentation with fentanyl and Diprovan being weaned off. Family meeting this afternoon with oncology. Objective - Vital Signs Vital signs: Vital Signs Temp 97.4 F L 01/07/19 04:30 Pulse 78 01/07/19 07:35 Resp 30 H 01/07/19 07:30 BP 94/52 01/07/19 07:30 Pulse Ox 98 01/07/19 07:30 Intake & Output 01/06/19 01/07/19 01/07/19 18:59 06:59 18:59 Intake Total 2401.145 1917.271 729 Output Total 2875 1030 475 Balance -473.855 887.271 254 Weight 79.6 kg Intake: IV 2126 1493 729 Anidulafungin 100 mg In 100 Sodium Chloride 0.9% 100 ml @ 84 mls/hr IVPB DAILY [facility] Rx#:[id number] Anidulafungin 200 mg In 260 Sodium Chloride 0.9% 200 ml @ 84 mls/hr IVPB ONCE ONE Rx#:[id number] Calcium Gluconate 1 gm 840 850 210 Potassium Phosphate 10 mmol Sodium Chloride 2. 5MEQ/ml Vial 25 meq In Amino Acid 5%-D15w 1,000 ml @ 70 mls/hr IV .BY DURATION [facility] Rx#: [id number] Fluconazole in NaCl,Iso- 50 Osm 100 mg In Saline 1 50ml.bag @ 50 mls/hr IVPB DAILY [facility] Rx#:[id number] Meropenem 1 gm In Sodium 200 100 100 Chloride 0.9% 100 ml @ 200 mls/hr IVPB Q8HR [facility] Rx#:[id number] Sodium Chloride 0.9% 1, 240 260 60 000 ml @ 20 mls/hr IV . Q24H [facility] Rx#:[id number] Vanco 250 Vancomycin 1,250 mg In 500 250 Sodium Chloride 0.9% 250 ml @ 125 mls/hr IVPB Q8H [facility] Rx#:[id number] pressure bag 36 33 9 Intake, IV Titration 275.145 424.271 Amount Norepinephrine 32 mg In 0 24.948 Sodium Chloride 0.9% 218 ml @ 0.05 MCG/KG/MIN 1. 807 mls/hr IV .Q24H [facility] Rx#:[id number] Propofol 1,000 mg In 200.000 299.323 Empty Bag 1 bag @ Titrate IV .Q0M [facility] Rx#: [id number] fentaNYL (PF) 1,000 mcg 75.145 100 In Sodium Chloride 0.9% 80 ml @ 1 MCG/KG/HR 7.98 mls/hr IV .[id number] [facility] Rx #:[id number] Output: Urine 2875 1030 475 Other: Voiding Method Indwelling Catheter Indwelling Catheter # Voids 1 ABP, PAP, CO, CI - Last Documented Arterial Blood Pressure 101/48 - Exam VITAL SIGNS: As above GENERAL: Lying in bed, calm, intubated, sedated HEENT: Conjunctivae normal. Pupils equal, oral mucosa dry NECK: Supple, tracheostomy tube present CARDIOVASCULAR: S1, S2 regular. Mild tachycardia, No murmur, no rub, no gallop RESPIRATION: Breath sounds diminished with improving bibasilar crackles ABDOMEN: Soft, nondistended, nontender. no masses palpable. Bowel sounds heard. EXTREMITIES: positive edema. no cyanosis, no clubbing. Mild anasarca NERVOUS SYSTEM: Unable to evaluate at this time, as patient intubated sedated Microbiology 12/31/18 20:40 Sputum Gram Stain - Final 12/31/18 20:40 Sputum Sputum Culture - Final Fabi albicans Fabi glabrata 12/29/18 23:54 Sputum Gram Stain - Final 12/29/18 23:54 Sputum Sputum Culture - Final Fabi glabrata Fabi albicans 12/24/18 11:30 Blood Blood Culture - Final No Growth after 144 hours 12/24/18 09:40 Blood Blood Culture - Final No Growth after 144 hours 12/26/18 03:35 Sputum Gram Stain - Final 12/26/18 03:35 Sputum Sputum Culture - Final - Labs CBC & Chem 7: 01/07/19 04:55 01/07/19 04:55 Labs: Abnormal Lab Results - Last 24 Hours (Table) 01/06/19 01/06/19 01/06/19 Range/Units 10:15 12:01 18:22 WBC (3.8-10.6) k/uL RBC (4.30-5.90) m/uL Hgb (13.0-17.5) gm/dL Hct (39.0-53.0) % MCHC (31.0-37.0) g/dL RDW (11.5-15.5) % Neutrophils # (1.3-7.7) k/uL Lymphocytes # (1.0-4.8) k/uL ABG pH (7.35-7.45) ABG pCO2 76 H* (35-45) mmHg ABG pO2 65 L (83-108) mmHg ABG HCO3 47 H* (21-25) mmol/L ABG Total CO2 49 H (19-24) mmol/L ABG O2 Saturation 92.7 L (94-97) % Potassium (3.5-5.1) mmol/L Carbon Dioxide (22-30) mmol/L BUN (9-20) mg/dL Creatinine (0.66-1.25) mg/dL Glucose (74-99) mg/dL POC Glucose (mg/dL) 167 H 160 H (75-99) mg/dL Calcium (8.4-10.2) mg/dL Phosphorus (2.5-4.5) mg/dL 01/06/19 01/07/19 01/07/19 Range/Units 23:50 04:55 04:55 WBC 12.6 H (3.8-10.6) k/uL RBC 3.39 L (4.30-5.90) m/uL Hgb 9.9 L (13.0-17.5) gm/dL Hct 32.7 L (39.0-53.0) % MCHC 30.2 L (31.0-37.0) g/dL RDW 18.7 H (11.5-15.5) % Neutrophils # 11.6 H (1.3-7.7) k/uL Lymphocytes # 0.5 L (1.0-4.8) k/uL ABG pH (7.35-7.45) ABG pCO2 (35-45) mmHg ABG pO2 (83-108) mmHg ABG HCO3 (21-25) mmol/L ABG Total CO2 (19-24) mmol/L ABG O2 Saturation (94-97) % Potassium 3.3 L (3.5-5.1) mmol/L Carbon Dioxide 38 H (22-30) mmol/L BUN 28 H (9-20) mg/dL Creatinine 0.32 L (0.66-1.25) mg/dL Glucose 147 H (74-99) mg/dL POC Glucose (mg/dL) 151 H (75-99) mg/dL Calcium 7.4 L (8.4-10.2) mg/dL Phosphorus 1.4 L (2.5-4.5) mg/dL 01/07/19 01/07/19 Range/Units 06:06 07:10 WBC (3.8-10.6) k/uL RBC (4.30-5.90) m/uL Hgb (13.0-17.5) gm/dL Hct (39.0-53.0) % MCHC (31.0-37.0) g/dL RDW (11.5-15.5) % Neutrophils # (1.3-7.7) k/uL Lymphocytes # (1.0-4.8) k/uL ABG pH 7.48 H (7.35-7.45) ABG pCO2 59 H (35-45) mmHg ABG pO2 139 H (83-108) mmHg ABG HCO3 43 H* (21-25) mmol/L ABG Total CO2 45 H (19-24) mmol/L ABG O2 Saturation 98.7 H (94-97) % Potassium (3.5-5.1) mmol/L Carbon Dioxide (22-30) mmol/L BUN (9-20) mg/dL Creatinine (0.66-1.25) mg/dL Glucose (74-99) mg/dL POC Glucose (mg/dL) 152 H (75-99) mg/dL Calcium (8.4-10.2) mg/dL Phosphorus (2.5-4.5) mg/dL Assessment and Plan Assessment: (1) Acute hypoxic respiratory failure, ventilator dependent, chemically paralyzed, secondary to aspiration pneumonia, acute pneumonitis with ARDS, possible chemotherapy induced injury, possible metastatic lymphangitic (2) acute septic shock with severe leukocytosis, pressor dependent, multi- factorial; related to multiple comorbidities Current Visit: Yes Status: Acute Code(s): J96.01 - ACUTE RESPIRATORY FAILURE WITH HYPOXIA SNOMED Code(s): 32366982 (3) Acute pneumonitis with ARDS, possibly chemotherapy induced Current Visit: Yes Status: Acute Code(s): J18.9 - PNEUMONIA, UNSPECIFIED ORGANISM SNOMED Code(s): 759476778 (3) Aspiration pneumonia,sputum culture reporting Fabi glabrata and Fabi albicans Current Visit: Yes Status: Acute Code(s): J69.0 - PNEUMONITIS DUE TO INHALATION OF FOOD AND VOMIT SNOMED Code(s): 004755808 (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 Recurrent esophageal cancer recent biopsy reporting adenocarcinoma with metastasis to L3 spine and to the stomach, chemotherapy resumed Current Visit: No Status: Acute Code(s): C15.9 - MALIGNANT NEOPLASM OF ESOPHAGUS, UNSPECIFIED SNOMED Code(s): 076588100 (7) oral candidiasis (8) anxiety (9) chronic recurrent aspiration , on TPN (10) leukocytosis (11) oral candidasis Plan: Continue current medication regime ,monitoring and symptomatic treatment. strict aspiration precautions. Continue on TPN, IV antibiotics, Nebulized bronchodilators, IV steroids ,IV diuretics, pressors. Weaning off sedation to evaluate mental status. CMP and ammonia level ordered .Daily Dulcolax suppositories untill BM, then prn- last BM 2- 3 days ago.Prognosis extremely guarded given multiple complex medical issues.Maintain supportive care. The impression and plan of care has been dictated as directed. : I performed a history and examination of this patient, discussed the same with the dictator. I agree with the dictator's note ,documented as a scribe. Any additional findings or plans will be noted. Time taken: 35 minutes
[2019-01-07 16:35] LABS: Anion Gap 0 mmol/L
--- NOTE | 2019-01-07 16:36 | P.PN ---
Subjective Progress Note Date: 01/07/19 Principal diagnosis: Difficulty in breathing, nausea and vomiting. Metastatic esophageal adenocarcinoma. Respiratory failure In follow-up today patient remains sedated, he has a tracheostomy, on ventilator. Patient's and his 2 daughters are here for a discussion. Objective - Vital Signs Vital signs: Vital Signs Temp 98.2 F 01/07/19 12:00 Pulse 100 01/07/19 14:00 Resp 31 H 01/07/19 14:00 BP 94/52 01/07/19 07:30 Pulse Ox 94 L 01/07/19 14:00 Intake & Output 01/06/19 01/07/19 01/07/19 18:59 06:59 18:59 Intake Total 2401.145 4364.479 0590 Output Total 2875 1030 2100 Balance -473.855 887.271 -309 Weight 79.6 kg Intake: IV 2126 1493 1691 Anidulafungin 100 mg In 100 Sodium Chloride 0.9% 100 ml @ 84 mls/hr IVPB DAILY [facility] Rx#:[id number] Anidulafungin 200 mg In 260 Sodium Chloride 0.9% 200 ml @ 84 mls/hr IVPB ONCE ONE Rx#:[id number] Calcium Gluconate 1 gm 840 850 560 Potassium Phosphate 10 mmol Sodium Chloride 2. 5MEQ/ml Vial 25 meq In Amino Acid 5%-D15w 1,000 ml @ 70 mls/hr IV .BY DURATION [facility] Rx#: [id number] Fluconazole in NaCl,Iso- 50 Osm 100 mg In Saline 1 50ml.bag @ 50 mls/hr IVPB DAILY [facility] Rx#:[id number] Meropenem 1 gm In Sodium 200 100 100 Chloride 0.9% 100 ml @ 200 mls/hr IVPB Q8HR [facility] Rx#:[id number] Potassium Chloride 20 meq 200 In Water For Injection 1 100ml.bag @ 50 mls/hr IVPB Q2H [facility] Rx#: [id number] Potassium Phosphate 10 300 mmol In Sodium Chloride 0 .9% 100 ml @ 50 mls/hr IV Q2H [facility] Rx#:[id number] Sodium Chloride 0.9% 1, 240 260 160 000 ml @ 20 mls/hr IV . Q24H [facility] Rx#:[id number] Vanco 250 Vancomycin 1,250 mg In 500 250 Sodium Chloride 0.9% 250 ml @ 125 mls/hr IVPB Q8H [facility] Rx#:[id number] pressure bag 36 33 21 Intake, IV Titration 275.145 424.271 100 Amount Norepinephrine 32 mg In 0 24.948 Sodium Chloride 0.9% 218 ml @ 0.05 MCG/KG/MIN 1. 807 mls/hr IV .Q24H [facility] Rx#:[id number] Propofol 1,000 mg In 200.000 299.323 100 Empty Bag 1 bag @ Titrate IV .Q0M [facility] Rx#: [id number] fentaNYL (PF) 1,000 mcg 75.145 100 In Sodium Chloride 0.9% 80 ml @ 1 MCG/KG/HR 7.98 mls/hr IV .[id number] [facility] Rx #:[id number] Output: Urine 2875 1030 2100 Other: Voiding Method Indwelling Catheter Indwelling Catheter Indwelling Catheter # Voids 1 ABP, PAP, CO, CI - Last Documented Arterial Blood Pressure 180/80 - Exam Well-developed, thin male laying in bed, he is sedated, no significant edema in the lower extremities is noted, S1 and S2, peripheral pulses are pal pable, skin is warm and dry, bowel sounds are hypoactive, abdomen is soft - Labs CBC & Chem 7: 01/07/19 04:55 01/07/19 04:55 Labs: Abnormal Lab Results - Last 24 Hours (Table) 01/06/19 01/06/19 01/07/19 Range/Units 18:22 23:50 04:55 WBC (3.8-10.6) k/uL RBC (4.30-5.90) m/uL Hgb (13.0-17.5) gm/dL Hct (39.0-53.0) % MCHC (31.0-37.0) g/dL RDW (11.5-15.5) % Neutrophils # (1.3-7.7) k/uL Lymphocytes # (1.0-4.8) k/uL ABG pH (7.35-7.45) ABG pCO2 (35-45) mmHg ABG pO2 (83-108) mmHg ABG HCO3 (21-25) mmol/L ABG Total CO2 (19-24) mmol/L ABG O2 Saturation (94-97) % Potassium 3.3 L (3.5-5.1) mmol/L Carbon Dioxide 38 H (22-30) mmol/L BUN 28 H (9-20) mg/dL Creatinine 0.32 L (0.66-1.25) mg/dL Glucose 147 H (74-99) mg/dL POC Glucose (mg/dL) 160 H 151 H (75-99) mg/dL Calcium 7.4 L (8.4-10.2) mg/dL Phosphorus 1.4 L (2.5-4.5) mg/dL 01/07/19 01/07/19 01/07/19 Range/Units 04:55 06:06 07:10 WBC 12.6 H (3.8-10.6) k/uL RBC 3.39 L (4.30-5.90) m/uL Hgb 9.9 L (13.0-17.5) gm/dL Hct 32.7 L (39.0-53.0) % MCHC 30.2 L (31.0-37.0) g/dL RDW 18.7 H (11.5-15.5) % Neutrophils # 11.6 H (1.3-7.7) k/uL Lymphocytes # 0.5 L (1.0-4.8) k/uL ABG pH 7.48 H (7.35-7.45) ABG pCO2 59 H (35-45) mmHg ABG pO2 139 H (83-108) mmHg ABG HCO3 43 H* (21-25) mmol/L ABG Total CO2 45 H (19-24) mmol/L ABG O2 Saturation 98.7 H (94-97) % Potassium (3.5-5.1) mmol/L Carbon Dioxide (22-30) mmol/L BUN (9-20) mg/dL Creatinine (0.66-1.25) mg/dL Glucose (74-99) mg/dL POC Glucose (mg/dL) 152 H (75-99) mg/dL Calcium (8.4-10.2) mg/dL Phosphorus (2.5-4.5) mg/dL 01/07/19 Range/Units 11:56 WBC (3.8-10.6) k/uL RBC (4.30-5.90) m/uL Hgb (13.0-17.5) gm/dL Hct (39.0-53.0) % MCHC (31.0-37.0) g/dL RDW (11.5-15.5) % Neutrophils # (1.3-7.7) k/uL Lymphocytes # (1.0-4.8) k/uL ABG pH (7.35-7.45) ABG pCO2 (35-45) mmHg ABG pO2 (83-108) mmHg ABG HCO3 (21-25) mmol/L ABG Total CO2 (19-24) mmol/L ABG O2 Saturation (94-97) % Potassium (3.5-5.1) mmol/L Carbon Dioxide (22-30) mmol/L BUN (9-20) mg/dL Creatinine (0.66-1.25) mg/dL Glucose (74-99) mg/dL POC Glucose (mg/dL) 144 H (75-99) mg/dL Calcium (8.4-10.2) mg/dL Phosphorus (2.5-4.5) mg/dL Assessment and Plan (1) Acute respiratory failure with hypoxia Current Visit: Yes Status: Acute Priority: High Code(s): J96.01 - ACUTE RESPIRATORY FAILURE WITH HYPOXIA SNOMED Code(s): 65231101 (2) Metastasis from esophageal cancer Narrative/Plan: We reviewed, the differential diagnoses, aspiration pneumonia, chemotherapy induced pneumonitis or lymphangitic spread of malignancy. All of their que stions were answered to the best of my ability. Case was discussed with Pulmonary/Critical Care team. Critical care deferred to Critical Care team. We will follow them and await their impression and recommendations on patient's progress. Per Critical Care, patient's family has to agreed to no code status. Continue care as ordered Current Visit: Yes Status: Acute Priority: High Code(s): C79.9 - SECONDARY MALIGNANT NEOPLASM OF UNSPECIFIED SITE; C15.9 - MALIGNANT NEOPLASM OF ESOPHAGUS, UNSPECIFIED SNOMED Code(s): 810602521
[2019-01-07] MEDS: fentaNYL (PF) 1,000 MCG in SODIUM CHLORIDE 0.9% 80 ML IV SCH (16:38)
[2019-01-07 17:07] LABS: Glucose,Whole Blood 134 mg/dL (75-99)
[2019-01-07 17:10] LABS: Carbon Dioxide 41 mmol/L (22-30)
[2019-01-07] MEDS: traZODone HCL 50 MG TAB PO SCH (21:20)
[2019-01-07] MEDS: SODIUM CHLORIDE 0.9% 1,000 ML IV SCH (23:46)
[2019-01-07] MEDS: LACTULOSE 200 GM/300 ML (FROM 1/2 GAL JUG) RECTAL SCH (23:46)
[2019-01-07 23:54] LABS: Glucose,Whole Blood 118 mg/dL (75-99)
[2019-01-08] MEDS: HEPARIN SODIUM,PORCINE 5,000 UNIT/ML 1 ML VIAL SQ SCH ×3 (00:06→16:11)
[2019-01-08] MEDS: MEROPENEM 1 GM in SODIUM CHLORIDE 0.9% 100 ML IVPB SCH ×3 (00:07→15:55)
[2019-01-08] MEDS: methylPREDNISolone SOD SUCCI 125 MG/2 ML VIAL IV SCH ×3 (00:07→16:12)
[2019-01-08] MEDS: IPRATROPIUM-ALBUTEROL 3 ML NEB INHALATION SCH ×7 (00:09→23:14)
[2019-01-08] MEDS: INSULIN ASPART (NovoLOG) 100 UNIT/ML VIAL SQ SCH ×4 (00:13→18:00)
[2019-01-08] MEDS: HYDROmorphone 1 MG/ML 1 ML SYRINGE IVP PRN ×7 (00:38→20:28)
[2019-01-08] MEDS: 1: MVI, ADULT NO.4 WITH VIT K 10 ML, TRACE (CONC-1ML/DOSE) 1 ML, CALCIUM GLUCONATE 1 GM, IV SCH ×12 (01:16→15:51)
--- NOTE | 2019-01-08 04:02 | XR ---
EXAM: XR Chest, 1 View CLINICAL HISTORY: ITS.REASON XR Reason: ARDS TECHNIQUE: Frontal view of the chest. COMPARISON: 01/07/19 FINDINGS: Lungs: Extensive bilateral interstitial markings are seen and basilar opacities, similar to the prior study which reflect a degree of pulmonary edema. Pleural space: Stable left small pleural effusion. No pneumothorax. Heart: Unremarkable. No cardiomegaly. Mediastinum: Unremarkable. Bones/joints: Unremarkable. Tubes, lines and devices: Left IJ line with the tip in the SVC. Right- sided port also seen. Tracheostomy tube seen in place. IMPRESSION: 1. Left IJ line with the tip in the SVC. Right-sided port also seen. Tracheostomy tube seen in place. 2. Extensive bilateral interstitial markings are seen and basilar opacities, similar to the prior study which reflect a degree of pulmonary edema. 3. Stable left small pleural effusion.
[2019-01-08 04:38] LABS: Anisocytosis Slight; Basophils % (A) 0 %; Eosinophils # (A) 0.1 k/uL (0-0.7); Eosinophils % (A) 1 %; HCT 32.3 % (39.0-53.0); HGB 9.9 gm/dL (13.0-17.5); Hypochromasia Marked; Lymphocytes # (A) 0.3 k/uL (1.0-4.8); Lymphocytes % (A) 2 %; MCHC 30.7 g/dL (31.0-37.0); MCV 94.8 fL (80.0-100.0); Macrocytosis Slight; Monocytes # (A) 0.4 k/uL (0-1.0); Monocytes % (A) 3 %; Neutrophils # (A) 13.4 k/uL (1.3-7.7); Neutrophils % (A) 94 %; Platelet Count 151 k/uL (150-450); RBC 3.41 m/uL (4.30-5.90); RDW 18.9 % (11.5-15.5); WBC 14.3 k/uL (3.8-10.6)
[2019-01-08 05:25] LABS: ALT 69 U/L (21-72); AST 56 U/L (17-59); African American GFR (CKD) >90 (>60 ml/min/1.73 sqM); Albumin 2.4 g/dL (3.5-5.0); Alkaline Phosphatase 145 U/L (38-126); Anion Gap 0 mmol/L; Blood Urea Nitrogen 28 mg/dL (9-20); Calcium 8.1 mg/dL (8.4-10.2); Carbon Dioxide 40 mmol/L (22-30); Chloride 101 mmol/L (98-107); Glucose 161 mg/dL (74-99); Magnesium 2.1 mg/dL (1.6-2.3); Phosphorus 2.7 mg/dL (2.5-4.5); Potassium 3.8 mmol/L (3.5-5.1); Sodium 141 mmol/L (137-145); Total Bilirubin 0.9 mg/dL (0.2-1.3); Total Protein 4.9 g/dL (6.3-8.2)
[2019-01-08] MEDS: LORazepam 2 MG/ML INJ IV PRN (05:58)
[2019-01-08] MEDS: POTASSIUM CHLORIDE 10 MEQ in WATER FOR INJECTION 1 100ML.BAG IVPB SCH ×2 (05:58→07:06)
[2019-01-08] MEDS: PROPOFOL 1,000 MG in EMPTY BAG 1 BAG IV SCH ×4 (05:58→15:50)
[2019-01-08 06:00] LABS: Glucose,Whole Blood 141 mg/dL (75-99)
[2019-01-08 06:37] LABS: ABG Base Excess 14.7 mmol/L; ABG HCO3 39 mmol/L (21-25); ABG Oxygen Saturation 95.2 % (94-97); ABG PCO2 62 mmHg (35-45); ABG PH 7.41 (7.35-7.45); ABG PO2 86 mmHg (83-108); ABG TCO2 41 mmol/L (19-24); Allen Test Performed? Yes
[2019-01-08] MEDS: VANCOMYCIN 1,250 MG in SODIUM CHLORIDE 0.9% 250 ML IVPB SCH ×3 (07:10→22:52)
[2019-01-08] MEDS: fentaNYL (PF) 1,000 MCG in SODIUM CHLORIDE 0.9% 80 ML IV SCH ×2 (07:24→19:21)
[2019-01-08] MEDS: NOREPINEPHRINE 32 MG in SODIUM CHLORIDE 0.9% 218 ML IV SCH (07:26)
[2019-01-08] MEDS: BUDESONIDE 1 MG/2 ML NEBU INHALATION SCH ×2 (07:29→18:55)
[2019-01-08] MEDS: FORMOTEROL FUMARATE 20 MCG/2 ML NEBU INHALATION SCH ×2 (07:30→18:55)
[2019-01-08] MEDS: FUROSEMIDE 10 MG/ML 4 ML VIAL IV SCH (08:05)
[2019-01-08] MEDS: ANIDULAFUNGIN 100 MG in SODIUM CHLORIDE 0.9% 100 ML IVPB SCH (08:05)
[2019-01-08] MEDS: CHLORHEXIDINE GLUCONATE 15 ML CUP MUCOUS MEM SCH ×2 (08:05→20:28)
[2019-01-08] MEDS: PANTOPRAZOLE 40 MG/10 ML VIAL IVP SCH ×2 (08:05→20:28)
[2019-01-08] MEDS: SENNOSIDES-DOCUSATE SODIUM 1 EACH TAB PO SCH ×2 (08:06→20:37)
--- NOTE | 2019-01-08 11:05 | P.PN ---
Subjective Progress Note Date: 01/08/19 Principal diagnosis: Acute hypoxic respiratory failure/ARDS with diffuse bilateral pulmonary infiltrates. On 01/05/2019, I'm seeing this patient for a follow-up. The patient is post tracheostomy tube insertion that was done yesterday without any complications. We are trying to wean him off the Nimbex for now. We were able to get it off yesterday yet briefly he required minimal paralysis to maintain synchrony. Note that this morning, the patient was quite comfortable. I changed him to VC loss mode with a tidal volume of 400 and the rate of 34 with an FiO2 of 55% and PEEP of 12. He is I time is 1. the patient is having some leaks around the tracheostomy tube and he is losing some volumes. This is probably in the form of 50 mL and for that reason I increased the tidal volume to counteract for that. His static pressures remains below 35. His blood gases on the current vent settings shows a pH of 7. episodes of 84 and pO2 of 81. The patient's chest x-ray shows no changes. Tracheostomy tube is in a good location. White cell count is up to 21. Nevertheless he does not have any fever. The orogastric tube has been removed. The patient has TPN for nutritional support. We will still being diuresis with IV Lasix. He was given Diamox for metabolic alkalosis. His serum bicarbs at 38. He is on IV Lasix. The fluid balance is - 2.4 L over the past 24 hours. The patient is receiving Lasix 40 mg IV push every 24 hours. He remains on broad-spectrum antibiotics. He remains on IV Solu-Medrol. His cardiac rhythm is sinus. He is on a combination of propofol for sedation index was being is less for paralysis. Tracheostomy tube is in place for now. This is a Bivona tracheostomy tube #8 with a foamy cuff Reevaluated today on 01/06/2019, patient remains on mechanical ventilation, off levo fed, off Nimbex, ventilator settings are tidal volume of 500, assist control rate of 30, FiO2 55%, and PEEP of 12. Patient is on fentanyl at 75 mcg/h, his also on propofol at 75 mcg/kg/m. He is also on TPN, continues to have significant leak from the tracheostomy site, and were making up for the leak by increasing his tidal volume from 400-500. He is actually getting about 400 mL of tidal volume. Repeat ABG showed a pO2 of 65 is CO2 of 76 pH of 7.40. CBC showed WBC count of 17 hemoglobin of 10.2. Chest x-ray showed small left pleural effusion and bibasilar reticulonodular infiltrates and/or edema. Patient is fully sedated, and his ventilator settings were adjusted accordingly. Reevaluated today on 01/07/2019, remains on mechanical ventilation, presently off norepinephrine for the last 1 hour. His ventilator settings are assist control rate of 30 tidal volume of 500, FiO2 of 50%, PEEP of 12. Patient is presently off norepinephrine, remains on fentanyl at 1 mcg/kg/h, and he is on propofol at 50 mcg/kg/m. Remains on TPN, labs including ABG showed a pO2 of 139 pCO2 of 59 pH of 7.48. His WBC count is 12.6 hemoglobin is 9.9 electrolytes were reviewed his bicarb is elevated at 38, BUN is 28 creatinine 0.32. Patient continues to have about 100 mL leak per tidal volume through the tracheostomy. And were making up for this volume loss by increasing his tidal volume up to 500 and he seems to be getting about 400 mL of tidal volume. FiO2 was cut down to 50%, and the plan is to cut down the PEEP hopefully to 10 or maybe 8. Family is at bedside, and clearly the patient is nowhere near weaning but will try to give him a sedation holiday today, and at least assess mental status. We will hold propofol and fentanyl for a short of time and assess mental status. Chest x-ray is showing some improvement especially in the left lower lobe infiltrate and left pleural effusion. Remains on antibiotics for presumptive aspiration pneumonia. Reevaluated today on , remains on mechanical ventilation, present vent settings are assist control rate of 30 tidal volume of 500 FiO2 of 55% PEEP of 12 the plateau pressures about 26. Patient remains on propofol at 50 mcg/kg/m, his also on sentinel at 1.5 mcg/kg/h. Yesterday he had a slight drop in his sedation, and he became extremely tachypneic, tachycardic, and very asynchronous with mechanical ventilation, and Desaturating, had to be placed back on sedation. Remains off Nimbex. Chest x-ray continues to show bilateral interstitial opacities, right more so than left, and bibasilar atelectasis. Small pleural effusions noted. Not much of a change noted on the chest x-ray. ABG today showed a pO2 of 86 pCO2 of 62 pH of 7.41. CBC showed the PEEP cigar 40.3 hemoglobin of 9.9. Electrolytes are normal. BUN is 28 creatinine is 0.39. Objective - Vital Signs Vital signs: Vital Signs Temp 98.3 F 01/08/19 08:00 Pulse 101 H 01/08/19 10:00 Resp 31 H 01/08/19 10:00 BP 136/88 01/08/19 10:00 Pulse Ox 93 L 01/08/19 10:00 Intake & Output 01/07/19 01/08/19 01/08/19 18:59 06:59 18:59 Intake Total 2613 646.261 2195.764 Output Total 2405 945 820 Balance 208 2.881 180.764 Weight 78.4 kg Intake: IV 2413 846 232 .9 300 120 Anidulafungin 100 mg In 100 Sodium Chloride 0.9% 100 ml @ 84 mls/hr IVPB DAILY [facility] Rx#:[id number] Calcium Gluconate 1 gm 840 Potassium Phosphate 10 mmol Sodium Chloride 2. 5MEQ/ml Vial 25 meq In Amino Acid 5%-D15w 1,000 ml @ 70 mls/hr IV .BY DURATION [facility] Rx#: [id number] Meropenem 1 gm In Sodium 200 100 100 Chloride 0.9% 100 ml @ 200 mls/hr IVPB Q8HR [facility] Rx#:[id number] Potassium Chloride 20 meq 200 100 In Water For Injection 1 100ml.bag @ 50 mls/hr IVPB Q2H [facility] Rx#: [id number] Potassium Phosphate 10 300 mmol In Sodium Chloride 0 .9% 100 ml @ 50 mls/hr IV Q2H [facility] Rx#:[id number] Sodium Chloride 0.9% 1, 240 60 000 ml @ 20 mls/hr IV . Q24H [facility] Rx#:[id number] Vancomycin 1,250 mg In 500 250 Sodium Chloride 0.9% 250 ml @ 125 mls/hr IVPB Q8H [facility] Rx#:[id number] pressure bag 33 36 12 Intake, IV Titration 200 101.881 768.764 Amount Anidulafungin 100 mg In 130 Sodium Chloride 0.9% 100 ml @ 84 mls/hr IVPB DAILY [facility] Rx#:[id number] Calcium Gluconate 1 gm 495.833 Potassium Phosphate 10 mmol Sodium Chloride 2. 5MEQ/ml Vial 25 meq In Amino Acid 5%-D15w 1,000 ml @ 70 mls/hr IV .BY DURATION [facility] Rx#: [id number] Norepinephrine 32 mg In 1.881 Sodium Chloride 0.9% 218 ml @ 0.05 MCG/KG/MIN 1. 807 mls/hr IV .Q24H [facility] Rx#:[id number] Propofol 1,000 mg In 200 100.000 118.060 Empty Bag 1 bag @ Titrate IV .Q0M [facility] Rx#: [id number] fentaNYL (PF) 1,000 mcg 24.871 In Sodium Chloride 0.9% 80 ml @ 1 MCG/KG/HR 7.98 mls/hr IV .[id number] [facility] Rx #:[id number] Output: Urine 2405 945 820 Other: Voiding Method Indwelling Catheter Indwelling Catheter Indwelling Catheter ABP, PAP, CO, CI - Last Documented Arterial Blood Pressure 141/69 - Exam General: Revealed a 48-year-old white male sedated, on mechanical ventilation, sedated. Head: Atraumatic, normocephalic Neck: Supple, Neck was supple and without jugular venous distension, thyromegaly, or carotid bruits. Carotids were easily palpable bilaterally. Tracheostomy seems to be intact, Mouth: Normal mucous membranes, moist, no thrush noted. Neck: No Palpable cervical, tracheostomy is intact. No neck masses. Heart: Normal S1 and S2, no gallop. No murmur. heart sound was noted. There were no murmurs, rubs, clicks, or gallops. Lungs: Persistent Crackles and rhonchi at the bases. No wheezing. Symmetrical chest expansion. No chest wall tenderness Abdomen: Soft nontender no megaly no rebound no guarding. Extremities: No clubbing edema or cyanosis, good pulses bilaterally Neurological: Cannot be assessed, patient is fully sedated, unable to cut down on sedation much since the patient gets extremely restless agitated and a synchronous with mechanical ventilation plus desaturate significantly. Psych: Unable to perform, sedated with propofol and fentanyl. Examination of the skin revealed no evidence of significant rashes, suspicious appearing nevi or other concerning lesions. - Labs CBC & Chem 7: 01/08/19 04:20 01/08/19 04:20 Labs: Abnormal Lab Results - Last 24 Hours (Table) 01/07/19 01/07/19 01/07/19 Range/Units 11:56 16:04 16:04 WBC (3.8-10.6) k/uL RBC (4.30-5.90) m/uL Hgb (13.0-17.5) gm/dL Hct (39.0-53.0) % MCHC (31.0-37.0) g/dL RDW (11.5-15.5) % Neutrophils # (1.3-7.7) k/uL Lymphocytes # (1.0-4.8) k/uL ABG pCO2 (35-45) mmHg ABG HCO3 (21-25) mmol/L ABG Total CO2 (19-24) mmol/L Carbon Dioxide 41 H* (22-30) mmol/L BUN 29 H (9-20) mg/dL Creatinine 0.44 L (0.66-1.25) mg/dL Glucose 145 H (74-99) mg/dL POC Glucose (mg/dL) 144 H (75-99) mg/dL Calcium 8.3 L (8.4-10.2) mg/dL Alkaline Phosphatase (38-126) U/L Ammonia 63 H (<30) umol/L Total Protein 4.7 L (6.3-8.2) g/dL Albumin 2.3 L (3.5-5.0) g/dL 01/07/19 01/07/19 01/08/19 Range/Units 17:04 23:51 04:20 WBC (3.8-10.6) k/uL RBC (4.30-5.90) m/uL Hgb (13.0-17.5) gm/dL Hct (39.0-53.0) % MCHC (31.0-37.0) g/dL RDW (11.5-15.5) % Neutrophils # (1.3-7.7) k/uL Lymphocytes # (1.0-4.8) k/uL ABG pCO2 (35-45) mmHg ABG HCO3 (21-25) mmol/L ABG Total CO2 (19-24) mmol/L Carbon Dioxide 40 H (22-30) mmol/L BUN 28 H (9-20) mg/dL Creatinine 0.39 L (0.66-1.25) mg/dL Glucose 161 H (74-99) mg/dL POC Glucose (mg/dL) 134 H 118 H (75-99) mg/dL Calcium 8.1 L (8.4-10.2) mg/dL Alkaline Phosphatase 145 H (38-126) U/L Ammonia (<30) umol/L Total Protein 4.9 L (6.3-8.2) g/dL Albumin 2.4 L (3.5-5.0) g/dL 01/08/19 01/08/19 01/08/19 Range/Units 04:20 05:05 05:57 WBC 14.3 H (3.8-10.6) k/uL RBC 3.41 L (4.30-5.90) m/uL Hgb 9.9 L (13.0-17.5) gm/dL Hct 32.3 L (39.0-53.0) % MCHC 30.7 L (31.0-37.0) g/dL RDW 18.9 H (11.5-15.5) % Neutrophils # 13.4 H (1.3-7.7) k/uL Lymphocytes # 0.3 L (1.0-4.8) k/uL ABG pCO2 (35-45) mmHg ABG HCO3 (21-25) mmol/L ABG Total CO2 (19-24) mmol/L Carbon Dioxide (22-30) mmol/L BUN (9-20) mg/dL Creatinine (0.66-1.25) mg/dL Glucose (74-99) mg/dL POC Glucose (mg/dL) 141 H (75-99) mg/dL Calcium (8.4-10.2) mg/dL Alkaline Phosphatase (38-126) U/L Ammonia 52 H (<30) umol/L Total Protein (6.3-8.2) g/dL Albumin (3.5-5.0) g/dL 01/08/19 Range/Units 06:34 WBC (3.8-10.6) k/uL RBC (4.30-5.90) m/uL Hgb (13.0-17.5) gm/dL Hct (39.0-53.0) % MCHC (31.0-37.0) g/dL RDW (11.5-15.5) % Neutrophils # (1.3-7.7) k/uL Lymphocytes # (1.0-4.8) k/uL ABG pCO2 62 H (35-45) mmHg ABG HCO3 39 H (21-25) mmol/L ABG Total CO2 41 H (19-24) mmol/L Carbon Dioxide (22-30) mmol/L BUN (9-20) mg/dL Creatinine (0.66-1.25) mg/dL Glucose (74-99) mg/dL POC Glucose (mg/dL) (75-99) mg/dL Calcium (8.4-10.2) mg/dL Alkaline Phosphatase (38-126) U/L Ammonia (<30) umol/L Total Protein (6.3-8.2) g/dL Albumin (3.5-5.0) g/dL Assessment and Plan Assessment: Impression: 1 acute hypoxic respiratory failure/ARDS with bilateral pulmonary infiltrates, most likely secondary to aspiration pneumonia, possibility of lymphangitic carcinomatosis involving the lungs is not entirely ruled out 2 metastatic esophageal cancer, possible lymphangitic carcinomatosis. Patient is not a good candidate for bronchoscopy. 3 recurrent episodes of aspiration pneumonia 4 oropharyngeal candidiasis, improving on Diflucan. 5 history of generalized anxiety disorder 6 acute septic shock and acute hypotension on presentation, resolved. 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 Which means prognosis is extremely poor and guarded, may have to come at time where we could even consider comfort care measures and terminal weaning but family is not quite ready for this yet. We'll continue to follow. Critical care time is 35 minutes. Time with Patient: Greater than 30
[2019-01-08] MEDS: LACTULOSE 200 GM/300 ML (FROM 1/2 GAL JUG) RECTAL SCH ×2 (11:24→11:47)
[2019-01-08 12:00] LABS: Glucose,Whole Blood 122 mg/dL (75-99)
[2019-01-08] MEDS: MAG HYDROX/AL HYDROX/SIMETH 30 ML, LIDOCAINE VISCOUS 30 ML, diphenhydrAMINE ELIXIR 75 M... PO SCH ×12 (12:26→22:52)
--- NOTE | 2019-01-08 14:44 | P.PN ---
Subjective Progress Note Date: 01/08/19 This is a 48-year-old gentleman with history of esophageal cancer, completed radiation and chemotherapy, history of gastric pull-through, recent biopsy reporting adenocarcinoma with chemotherapy resumed. T-max on admission 100.3, WBC 14.6, neutrophils normal, hemoglobin ,platelets, electrolytes essentially normal.Currently T-max 100.2, WBC improving, down to 12.4.. Maintained on IV fluid hydration of D5.45 MLS per hour, cefepime, vancomycin. Speech consulted to evaluate for silent aspiration(prior history of PEG tube which has been discontinued). Chest x-ray reported new multifocal airspace disease possible multifocal pneumonia versus pulmonary edema. F/U chest x-ray this morning with no significant change. On admission patient had been satting high 90s on room air. During the afternoon patient sats decreased to 93-94%. Last night, patient desatted to 70s to 80s %, A teamed called, received a dose of Lasix 40 IV push and placed on BiPAP. BiPAP weaned off currently on 15 L high flow nasal cannula this morning, maintaining O2 sats of 93%. No further nausea vomiting or diarrhea. Tolerating clear liquid diet. 12/26/2018 Tested negative for influenza, CT negative for PE, received a couple doses of Lasix for potential pulmonary edema, Swallow evaluation per speech therapy with no aspiration observed, universal aspiration precautions recommended..During the night, patient desatted, did not respond to BiPAP, transferred to ICU and placed on Airvo. Maintaining O2 sats of low 90s on 80% airvo. Maintained on IV antibiotics of vancomycin, Maxipime as per infectious disease. T-max 100.4,WBC WNL. Preliminary blood cultures negative at 24 hours .Continues on nebulized bronchodilators. Feels better this morning. 12/27/2018: She remains on high flow nasal cannula oxygen. Pulse ox is 92%. He remains on IV vancomycin plus Maxipime for antibiotic coverage. Solu-Medrol was started yesterday and seems to help. He remains nothing by mouth for suspected chronic aspiration. His is at bedside. Chest x-ray today shows worsening interstitial airspace disease. Clinically he feels better. Staff report he is doing better. 12/28/2018: Patient's chest x-ray shortness of breath continue worsen. He is unable to move significantly not descending. He remains on Airvo. His remains at bedside. I discussed this case with Dr. Wade, he is considering bronchoscopy, but fears that he would end up being intubated and unable to ween.Exact cause of his symptoms are unknown without multifactorial due to aspiration pneumonia, chemical pneumonitis due to chemotherapy, and other factors. 12/29/2018 Maintained on vancomycin and cefepime as per ID. Remains airvo de pendent, maintaining O2 sats of 95% on 60%. chest x-ray reporting stable bilateral pneumonia, ARDS, or pulmonary edema; diffuse increase in opacification to the right lung. Recurrent emesis , aspiration risks changed to NPO, TPN ordered. Blood sugars controlled. Oral thrush, Diflucan initiated. T-max 99.9, WBC down to 15.1. 12/30/2018 respiratory status continued to deteriorate yesterday and patient required intubation yesterday afternoon. Chest x-ray reporting slight improvement in diffuse pulmonary edema, persistent interstitial opacity's bilaterally right more than left, bibasilar atelectasis. ABGs reflected severe respiratory acidosis this morning. FiO2 has been weaned down to 70%, PEEP has been weaned down to 14. Mild sinus tachycardia. Currently on pressor support of Levophed 40 mcgs, and on chemical paralysis with Nimbex. Right pupil fixed and dilated, unstable at this time for transfer to CT. potassium elevated at 6.2 received sodium bicarb D50, insulin, down to 5.8. Afebrile, White count up to 52, on Merrem ,Vancomycin and Diflucan. Repeat cultures sent. Maintained on TPN. Continues on nebulized bronchodilators, IV steroids 12/31/18 Maintained on Nimbex drip, ABGs improved with FiO2 decreased to 50% and PEEP down to 12%,cuff leak resolved with ETT repositioned.Levophed weaned down to 2 mcgs. Maintained on TPN. Continues on nebulized bronchodilators, IV s teroids. Aggressive fluid resuscitation decreased, positive fluid balance with extremity edema .Afebrile,cultures negative. 01/01/2019 sputum culture report and Fabi glabrata and Fabi albicans, repeat sputum culture pending. Maintained on IV antibiotics of vancomycin and Merrem.afebrile,WBC decreased to 12.7.Attempted Nimbex weaning, not tolerated, peak pressure reading, and oxygenating, desatted into the 80s.Nimbex resumed. patient was maintaining O2 sats in the high 80s, ABGs noted, including PO2 of 67. Vent changes: Rate decreased, FiO2 increased to 60%,complete maintained and 12. chest x-ray reporting mild improvement of bibasilar infiltrates. IV fluids decreased yesterday,continues on 0.9 at KVO, as well as TPN.24 hour I&O reflecting a negative fluid balance.Positive bowel movement this morning. 01/02/2019 Remains vent dependent on FiO2 of 60%/+12 Peep. Maintained on Nimbex and Diprovan. Dr. Padilla consulted regarding tracheostomy. Telemetry sinus rhythm to sinus tach. 01/03/2019: Patient remains in the intensive care unit, intubated, sedated and mechanically ventilated. His current PEEP is 12. FiO2 is still 60%. HEENT been able to wean off the paralytic agent. He remains on fluconazole, meropenem and vancomycin for antibiotic coverage. His is at bedside. Telemetry continues to show sinus rhythm. Achy ostomy is planned for the near future ba sed on his status. He is slightly improved today compared to yesterday. 01/05/2019: Patient remains in intensive care unit. He is sedated and paralyzed once again. He remains on mechanical ventilation, now through the tracheostomy tube. Tracheostomy was placed yesterday. His is at bedside, care discussed with her briefly. ICU nurse was also present. He remains on fluconazole, meropenem, and vancomycin for antibiotic coverage. propofol, Cistacuium and fentanyl for sedation and paralyzation. He also is now on TPN 01/06/19 maintained on vent support with FiO2 50%/+12 of PEEP via trach.. ABGs noted, rate and tidal volume adjusted ,mild cuff leak. Chest x-ray reporting stable persistent small left pleural effusion and bibasilar reticulonodular infiltrates/edema. Nimbex has been weaned off, maintained on both Diprovan and fentanyl. Continues on fluconazole, vancomycin and Maxipime as per ID. telemetry sinus rhythm to sinus tach. Afebrile. 01/07/2019 continues on IV antibiotics. Chest x-ray and ABGs Better. FiO2 decreased to 50%/+5 of PEEP. Desatted and FiO2 increased back to 55%. Fluctuating hypotension, on and off Levophed. Attempting to assess mentation with fentanyl and Diprovan being weaned off. Family meeting this afternoon with oncology. 01/08/2019 maintained on mechanical ventilation via tracheostomy, FiO2 55%/+12 of PEEP. Sedated on fentanyl and Diprovan; unable to currently wean off sedation-patient stacking breaths, high pressures, becomes asynchronous with ventilator and desats. Hypertensive earlier, Levofed currently off. Chest x- ray similar with bilateral interstitial opacities, right greater than left, small pleural effusions, bibasilar atelectasis. Alk phos 145. Ammonia 63 yesterday, lactulose initiated, currently down to 52. Objective - Vital Signs Vital signs: Vital Signs Temp 98.3 F 01/08/19 08:00 Pulse 101 H 01/08/19 10:00 Resp 31 H 01/08/19 10:00 BP 136/88 01/08/19 10:00 Pulse Ox 93 L 01/08/19 10:00 Intake & Output 01/07/19 01/08/19 01/08/19 18:59 06:59 18:59 Intake Total 2613 997.458 9934.764 Output Total 2405 945 820 Balance 208 2.881 180.764 Weight 78.4 kg Intake: IV 2413 846 232 .9 300 120 Anidulafungin 100 mg In 100 Sodium Chloride 0.9% 100 ml @ 84 mls/hr IVPB DAILY [facility] Rx#:[id number] Calcium Gluconate 1 gm 840 Potassium Phosphate 10 mmol Sodium Chloride 2. 5MEQ/ml Vial 25 meq In Amino Acid 5%-D15w 1,000 ml @ 70 mls/hr IV .BY DURATION [facility] Rx#: [id number] Meropenem 1 gm In Sodium 200 100 100 Chloride 0.9% 100 ml @ 200 mls/hr IVPB Q8HR [facility] Rx#:[id number] Potassium Chloride 20 meq 200 100 In Water For Injection 1 100ml.bag @ 50 mls/hr IVPB Q2H [facility] Rx#: [id number] Potassium Phosphate 10 300 mmol In Sodium Chloride 0 .9% 100 ml @ 50 mls/hr IV Q2H [facility] Rx#:[id number] Sodium Chloride 0.9% 1, 240 60 000 ml @ 20 mls/hr IV . Q24H [facility] Rx#:[id number] Vancomycin 1,250 mg In 500 250 Sodium Chloride 0.9% 250 ml @ 125 mls/hr IVPB Q8H [facility] Rx#:[id number] pressure bag 33 36 12 Intake, IV Titration 200 101.881 768.764 Amount Anidulafungin 100 mg In 130 Sodium Chloride 0.9% 100 ml @ 84 mls/hr IVPB DAILY [facility] Rx#:[id number] Calcium Gluconate 1 gm 495.833 Potassium Phosphate 10 mmol Sodium Chloride 2. 5MEQ/ml Vial 25 meq In Amino Acid 5%-D15w 1,000 ml @ 70 mls/hr IV .BY DURATION [facility] Rx#: [id number] Norepinephrine 32 mg In 1.881 Sodium Chloride 0.9% 218 ml @ 0.05 MCG/KG/MIN 1. 807 mls/hr IV .Q24H [facility] Rx#:[id number] Propofol 1,000 mg In 200 100.000 118.060 Empty Bag 1 bag @ Titrate IV .Q0M [facility] Rx#: [id number] fentaNYL (PF) 1,000 mcg 24.871 In Sodium Chloride 0.9% 80 ml @ 1 MCG/KG/HR 7.98 mls/hr IV .[id number] [facility] Rx #:[id number] Output: Urine 2405 945 820 Other: Voiding Method Indwelling Catheter Indwelling Catheter Indwelling Catheter ABP, PAP, CO, CI - Last Documented Arterial Blood Pressure 141/69 - Exam VITAL SIGNS: As above GENERAL: Lying in bed, calm, intubated, sedated HEENT: Conjunctivae normal. Pupils equal, oral mucosa dry NECK: Supple, tracheostomy tube present CARDIOVASCULAR: S1, S2 regular. No murmur, no rub, no gallop. RESPIRATION: Breath sounds diminished .Scattered rhonchi with bibasilar crackles ABDOMEN: Soft, nondistended, nontender. no masses palpable. Bowel sounds heard. EXTREMITIES: positive edema. no cyanosis, no clubbing. Mild anasarca NERVOUS SYSTEM: Unable to evaluate at this time, as patient intubated sedated Microbiology 12/31/18 20:40 Sputum Gram Stain - Final 12/31/18 20:40 Sputum Sputum Culture - Final Fabi albicans Fabi glabrata 12/29/18 23:54 Sputum Gram Stain - Final 12/29/18 23:54 Sputum Sputum Culture - Final Fabi glabrata Fabi albicans 12/24/18 11:30 Blood Blood Culture - Final No Growth after 144 hours 12/24/18 09:40 Blood Blood Culture - Final No Growth after 144 hours 12/26/18 03:35 Sputum Gram Stain - Final 12/26/18 03:35 Sputum Sputum Culture - Final - Labs CBC & Chem 7: 01/08/19 04:20 01/08/19 04:20 Labs: Abnormal Lab Results - Last 24 Hours (Table) 01/07/19 01/07/19 01/07/19 Range/Units 11:56 16:04 16:04 WBC (3.8-10.6) k/uL RBC (4.30-5.90) m/uL Hgb (13.0-17.5) gm/dL Hct (39.0-53.0) % MCHC (31.0-37.0) g/dL RDW (11.5-15.5) % Neutrophils # (1.3-7.7) k/uL Lymphocytes # (1.0-4.8) k/uL ABG pCO2 (35-45) mmHg ABG HCO3 (21-25) mmol/L ABG Total CO2 (19-24) mmol/L Carbon Dioxide 41 H* (22-30) mmol/L BUN 29 H (9-20) mg/dL Creatinine 0.44 L (0.66-1.25) mg/dL Glucose 145 H (74-99) mg/dL POC Glucose (mg/dL) 144 H (75-99) mg/dL Calcium 8.3 L (8.4-10.2) mg/dL Alkaline Phosphatase (38-126) U/L Ammonia 63 H (<30) umol/L Total Protein 4.7 L (6.3-8.2) g/dL Albumin 2.3 L (3.5-5.0) g/dL 01/07/19 01/07/19 01/08/19 Range/Units 17:04 23:51 04:20 WBC (3.8-10.6) k/uL RBC (4.30-5.90) m/uL Hgb (13.0-17.5) gm/dL Hct (39.0-53.0) % MCHC (31.0-37.0) g/dL RDW (11.5-15.5) % Neutrophils # (1.3-7.7) k/uL Lymphocytes # (1.0-4.8) k/uL ABG pCO2 (35-45) mmHg ABG HCO3 (21-25) mmol/L ABG Total CO2 (19-24) mmol/L Carbon Dioxide 40 H (22-30) mmol/L BUN 28 H (9-20) mg/dL Creatinine 0.39 L (0.66-1.25) mg/dL Glucose 161 H (74-99) mg/dL POC Glucose (mg/dL) 134 H 118 H (75-99) mg/dL Calcium 8.1 L (8.4-10.2) mg/dL Alkaline Phosphatase 145 H (38-126) U/L Ammonia (<30) umol/L Total Protein 4.9 L (6.3-8.2) g/dL Albumin 2.4 L (3.5-5.0) g/dL 01/08/19 01/08/19 01/08/19 Range/Units 04:20 05:05 05:57 WBC 14.3 H (3.8-10.6) k/uL RBC 3.41 L (4.30-5.90) m/uL Hgb 9.9 L (13.0-17.5) gm/dL Hct 32.3 L (39.0-53.0) % MCHC 30.7 L (31.0-37.0) g/dL RDW 18.9 H (11.5-15.5) % Neutrophils # 13.4 H (1.3-7.7) k/uL Lymphocytes # 0.3 L (1.0-4.8) k/uL ABG pCO2 (35-45) mmHg ABG HCO3 (21-25) mmol/L ABG Total CO2 (19-24) mmol/L Carbon Dioxide (22-30) mmol/L BUN (9-20) mg/dL Creatinine (0.66-1.25) mg/dL Glucose (74-99) mg/dL POC Glucose (mg/dL) 141 H (75-99) mg/dL Calcium (8.4-10.2) mg/dL Alkaline Phosphatase (38-126) U/L Ammonia 52 H (<30) umol/L Total Protein (6.3-8.2) g/dL Albumin (3.5-5.0) g/dL 01/08/19 Range/Units 06:34 WBC (3.8-10.6) k/uL RBC (4.30-5.90) m/uL Hgb (13.0-17.5) gm/dL Hct (39.0-53.0) % MCHC (31.0-37.0) g/dL RDW (11.5-15.5) % Neutrophils # (1.3-7.7) k/uL Lymphocytes # (1.0-4.8) k/uL ABG pCO2 62 H (35-45) mmHg ABG HCO3 39 H (21-25) mmol/L ABG Total CO2 41 H (19-24) mmol/L Carbon Dioxide (22-30) mmol/L BUN (9-20) mg/dL Creatinine (0.66-1.25) mg/dL Glucose (74-99) mg/dL POC Glucose (mg/dL) (75-99) mg/dL Calcium (8.4-10.2) mg/dL Alkaline Phosphatase (38-126) U/L Ammonia (<30) umol/L Total Protein (6.3-8.2) g/dL Albumin (3.5-5.0) g/dL Assessment and Plan Assessment: (1) Acute hypoxic respiratory failure, ventilator dependent, chemically paralyzed, secondary to aspiration pneumonia, acute pneumonitis with ARDS, possible chemotherapy induced injury, possible metastatic lymphangitic (2) acute septic shock with severe leukocytosis, pressor dependent, multi-f actorial; related to multiple comorbidities Current Visit: Yes Status: Acute Code(s): J96.01 - ACUTE RESPIRATORY FAILURE WITH HYPOXIA SNOMED Code(s): 35419528 (3) Acute pneumonitis with ARDS, possibly chemotherapy induced Current Visit: Yes Status: Acute Code(s): J18.9 - PNEUMONIA, UNSPECIFIED ORG ANISM SNOMED Code(s): 198086544 (3) Aspiration pneumonia,sputum culture reporting Fabi glabrata and Fabi albicans Current Visit: Yes Status: Acute Code(s): J69.0 - PNEUMONITIS DUE TO INHALATION OF FOOD AND VOMIT SNOMED Code(s): 564186267 (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 Recurrent esophageal cancer recent biopsy reporting adenocarcinoma with metastasis to L3 spine and to the stomach, chemotherapy resumed Current Visit: No Status: Acute Code(s): C15.9 - MALIGNANT NEOPLASM OF ESOPHAGUS, UNSPECIFIED SNOMED Code(s): 132952153 (7) oral candidiasis (8) anxiety (9) chronic recurrent aspiration , on TPN (10) leukocytosis (11) oral candidasis (12) hyperammonemia (13) no code Plan: Continue current medication regime ,monitoring and symptomatic treatment. strict aspiration precautions. Maintain TPN, IV antibiotics, Nebulized bronchodilators, steroids ,IV diuretics, pressors PRN. CMP and ammonia level ordered .Prognosis extremely guarded given multiple complex medical issues.Maintain supportive care. The impression and plan of care has been dictated as directed. : I performed a history and examination of this patient, discussed the same with the dictator. I agree with the dictator's note ,documented as a scribe. Any additional findings or plans will be noted. Time taken: 35 minutes
--- NOTE | 2019-01-08 17:11 | P.PN ---
Subjective Progress Note Date: 01/08/19 Principal diagnosis: Difficulty in breathing, nausea and vomiting. Metastatic esophageal adenocarcinoma. Respiratory failure In follow-up today patient remains sedated, he has a tracheostomy, on ventilator. Patient's at bedside Objective - Vital Signs Vital signs: Vital Signs Temp 98.6 F 01/08/19 16:00 Pulse 110 H 01/08/19 16:00 Resp 30 H 01/08/19 16:00 BP 132/89 01/08/19 16:00 Pulse Ox 93 L 01/08/19 16:00 Intake & Output 01/07/19 01/08/19 01/08/19 18:59 06:59 18:59 Intake Total 3647.3333 860.547 3640.725 Output Total 2405 945 1640 Balance 1242.3333 2.881 79.725 Weight 78.4 kg 78.4 kg Intake: IV 2413 846 780 .9 300 300 Anidulafungin 100 mg In 100 Sodium Chloride 0.9% 100 ml @ 84 mls/hr IVPB DAILY [facility] Rx#:[id number] Calcium Gluconate 1 gm 840 Potassium Phosphate 10 mmol Sodium Chloride 2. 5MEQ/ml Vial 25 meq In Amino Acid 5%-D15w 1,000 ml @ 70 mls/hr IV .BY DURATION [facility] Rx#: [id number] Meropenem 1 gm In Sodium 200 100 200 Chloride 0.9% 100 ml @ 200 mls/hr IVPB Q8HR [facility] Rx#:[id number] Potassium Chloride 20 meq 200 100 In Water For Injection 1 100ml.bag @ 50 mls/hr IVPB Q2H [facility] Rx#: [id number] Potassium Phosphate 10 300 mmol In Sodium Chloride 0 .9% 100 ml @ 50 mls/hr IV Q2H [facility] Rx#:[id number] Sodium Chloride 0.9% 1, 240 60 000 ml @ 20 mls/hr IV . Q24H [facility] Rx#:[id number] Vancomycin 1,250 mg In 500 250 250 Sodium Chloride 0.9% 250 ml @ 125 mls/hr IVPB Q8H [facility] Rx#:[id number] pressure bag 33 36 30 Intake, IV Titration 1234.3333 101.881 939.725 Amount Anidulafungin 100 mg In 130 Sodium Chloride 0.9% 100 ml @ 84 mls/hr IVPB DAILY [facility] Rx#:[id number] Calcium Gluconate 1 gm 495.833 Potassium Phosphate 10 mmol Sodium Chloride 2. 5MEQ/ml Vial 25 meq In Amino Acid 5%-D15w 1,000 ml @ 70 mls/hr IV .BY DURATION [facility] Rx#: [id number] Mvi, Adult No.4 with Vit 1034.3333 K 10 ml Trace (Conc-1Ml/ Dose) 1 ml Calcium Gluconate 1 gm Potassium Phosphate 10 mmol Sodium Chloride 2.5MEQ/ml Vial 25 meq In Amino Acid 5%- D15w 1,000 ml @ 70 mls/hr IV .BY DURATION [facility] Rx#: [id number] Norepinephrine 32 mg In 1.881 Sodium Chloride 0.9% 218 ml @ 0.05 MCG/KG/MIN 1. 807 mls/hr IV .Q24H [facility] Rx#:[id number] Propofol 1,000 mg In 200 100.000 255.771 Empty Bag 1 bag @ Titrate IV .Q0M [facility] Rx#: [id number] fentaNYL (PF) 1,000 mcg 58.121 In Sodium Chloride 0.9% 80 ml @ 1 MCG/KG/HR 7.98 mls/hr IV .[id number] [facility] Rx #:[id number] Output: Urine 2405 945 1640 Other: Voiding Method Indwelling Catheter Indwelling Catheter Indwelling Catheter ABP, PAP, CO, CI - Last Documented Arterial Blood Pressure 163/78 - Exam Well-developed, thin male laying in bed, he is sedated, no significant edema in the lower extremities is noted, S1 and S2, peripheral pulses are palpable, skin is warm and dry, bowel sounds are hypoactive, abdomen is soft - Respiratory Respiratory: bilateral: rhonchi - Cardiovascular Heart sounds: normal: S1, S2 - Integumentary Integumentary: Present: pale - Psychiatric Psychiatric: Absent: A&O x's 3, appropriate affect, intact judgment & insight - Labs CBC & Chem 7: 01/08/19 04:20 01/08/19 04:20 Labs: Abnormal Lab Results - Last 24 Hours (Table) 01/07/19 01/07/19 01/08/19 Range/Units 16:04 23:51 04:20 WBC (3.8-10.6) k/uL RBC (4.30-5.90) m/uL Hgb (13.0-17.5) gm/dL Hct (39.0-53.0) % MCHC (31.0-37.0) g/dL RDW (11.5-15.5) % Neutrophils # (1.3-7.7) k/uL Lymphocytes # (1.0-4.8) k/uL ABG pCO2 (35-45) mmHg ABG HCO3 (21-25) mmol/L ABG Total CO2 (19-24) mmol/L Carbon Dioxide 41 H* 40 H (22-30) mmol/L BUN 29 H 28 H (9-20) mg/dL Creatinine 0.44 L 0.39 L (0.66-1.25) mg/dL Glucose 145 H 161 H (74-99) mg/dL POC Glucose (mg/dL) 118 H (75-99) mg/dL Calcium 8.3 L 8.1 L (8.4-10.2) mg/dL Alkaline Phosphatase 145 H (38-126) U/L Ammonia (<30) umol/L Total Protein 4.7 L 4.9 L (6.3-8.2) g/dL Albumin 2.3 L 2.4 L (3.5-5.0) g/dL 01/08/19 01/08/19 01/08/19 Range/Units 04:20 05:05 05:57 WBC 14.3 H (3.8-10.6) k/uL RBC 3.41 L (4.30-5.90) m/uL Hgb 9.9 L (13.0-17.5) gm/dL Hct 32.3 L (39.0-53.0) % MCHC 30.7 L (31.0-37.0) g/dL RDW 18.9 H (11.5-15.5) % Neutrophils # 13.4 H (1.3-7.7) k/uL Lymphocytes # 0.3 L (1.0-4.8) k/uL ABG pCO2 (35-45) mmHg ABG HCO3 (21-25) mmol/L ABG Total CO2 (19-24) mmol/L Carbon Dioxide (22-30) mmol/L BUN (9-20) mg/dL Creatinine (0.66-1.25) mg/dL Glucose (74-99) mg/dL POC Glucose (mg/dL) 141 H (75-99) mg/dL Calcium (8.4-10.2) mg/dL Alkaline Phosphatase (38-126) U/L Ammonia 52 H (<30) umol/L Total Protein (6.3-8.2) g/dL Albumin (3.5-5.0) g/dL 01/08/19 01/08/19 Range/Units 06:34 11:57 WBC (3.8-10.6) k/uL RBC (4.30-5.90) m/uL Hgb (13.0-17.5) gm/dL Hct (39.0-53.0) % MCHC (31.0-37.0) g/dL RDW (11.5-15.5) % Neutrophils # (1.3-7.7) k/uL Lymphocytes # (1.0-4.8) k/uL ABG pCO2 62 H (35-45) mmHg ABG HCO3 39 H (21-25) mmol/L ABG Total CO2 41 H (19-24) mmol/L Carbon Dioxide (22-30) mmol/L BUN (9-20) mg/dL Creatinine (0.66-1.25) mg/dL Glucose (74-99) mg/dL POC Glucose (mg/dL) 122 H (75-99) mg/dL Calcium (8.4-10.2) mg/dL Alkaline Phosphatase (38-126) U/L Ammonia (<30) umol/L Total Protein (6.3-8.2) g/dL Albumin (3.5-5.0) g/dL - Imaging and Cardiology Chest x-ray: report reviewed Assessment and Plan (1) Acute respiratory failure with hypoxia Narrative/Plan: Patient is now had a trach placed, remains in respiratory failure and mechanically ventilated. Defer management to the Critical Care team who is closely monitoring, treating and seeing daily Current Visit: Yes Status: Acute Priority: High Code(s): J96.01 - ACUTE RESPIRATORY FAILURE WITH HYPOXIA SNOMED Code(s): 28859223 (2) Metastasis from esophageal cancer Narrative/Plan: We again reviewed differential diagnoses, aspiration pneumonia, chemotherapy induced pneumonitis or lymphangitic spread of malignancy. Pulmonary/Critical Care team notes reviewed Critical care deferred to Critical Care team. We will follow them and await th eir impression and recommendations on patient's progress. Per Critical Care, patient's family has to agreed to no code status. Continue care as ordered Current Visit: Yes Status: Acute Priority: High Code(s): C79.9 - SECONDARY MALIGNANT NEOPLASM OF UNSPECIFIED SITE; C15.9 - MALIGNANT NEOPLASM OF ESOPHAGUS, UNSPECIFIED SNOMED Code(s): 314300282
[2019-01-08 17:59] LABS: Glucose,Whole Blood 133 mg/dL (75-99)
[2019-01-08] MEDS: SODIUM CHLORIDE 0.9% 1,000 ML IV SCH (20:37)
[2019-01-08] MEDS: traZODone HCL 50 MG TAB PO SCH (20:37)
[2019-01-09] MEDS: HEPARIN SODIUM,PORCINE 5,000 UNIT/ML 1 ML VIAL SQ SCH ×3 (00:14→17:16)
[2019-01-09] MEDS: methylPREDNISolone SOD SUCCI 125 MG/2 ML VIAL IV SCH ×3 (00:14→17:15)
[2019-01-09] MEDS: MEROPENEM 1 GM in SODIUM CHLORIDE 0.9% 100 ML IVPB SCH ×3 (00:15→17:17)
[2019-01-09 00:26] LABS: Glucose,Whole Blood 134 mg/dL (75-99)
[2019-01-09] MEDS: INSULIN ASPART (NovoLOG) 100 UNIT/ML VIAL SQ SCH ×4 (00:27→18:46)
[2019-01-09] MEDS: HYDROmorphone 1 MG/ML 1 ML SYRINGE IVP PRN ×7 (00:28→17:38)
[2019-01-09] MEDS: PROPOFOL 1,000 MG in EMPTY BAG 1 BAG IV SCH ×7 (02:30→22:07)
[2019-01-09] MEDS: IPRATROPIUM-ALBUTEROL 3 ML NEB INHALATION SCH ×6 (04:28→23:28)
[2019-01-09 04:49] LABS: Anisocytosis Slight; Basophils % (A) 0 %; Eosinophils # (A) 0.1 k/uL (0-0.7); Eosinophils % (A) 0 %; HCT 30.7 % (39.0-53.0); HGB 9.2 gm/dL (13.0-17.5); Hypochromasia Marked; Lymphocytes # (A) 0.5 k/uL (1.0-4.8); Lymphocytes % (A) 3 %; MCH 28.7 pg (25.0-35.0); MCHC 30.2 g/dL (31.0-37.0); MCV 95.1 fL (80.0-100.0); Macrocytosis Slight; Mean Platelet Volume 8.6; Monocytes # (A) 0.5 k/uL (0-1.0); Monocytes % (A) 3 %; Neutrophils # (A) 15.6 k/uL (1.3-7.7); Neutrophils % (A) 94 %; Platelet Count 165 k/uL (150-450); RBC 3.22 m/uL (4.30-5.90); RDW 18.7 % (11.5-15.5); WBC 16.6 k/uL (3.8-10.6)
[2019-01-09 04:52] LABS: ALT 62 U/L (21-72); AST 38 U/L (17-59); African American GFR (CKD) >90 (>60 ml/min/1.73 sqM); Albumin 2.3 g/dL (3.5-5.0); Alkaline Phosphatase 142 U/L (38-126); Anion Gap 0 mmol/L; Blood Urea Nitrogen 22 mg/dL (9-20); Calcium 8.2 mg/dL (8.4-10.2); Chloride 99 mmol/L (98-107); Glucose 163 mg/dL (74-99); Phosphorus 2.8 mg/dL (2.5-4.5); Potassium 4.1 mmol/L (3.5-5.1); Sodium 139 mmol/L (137-145); Total Bilirubin 0.8 mg/dL (0.2-1.3); Total Protein 4.8 g/dL (6.3-8.2)
[2019-01-09 05:07] LABS: Carbon Dioxide 40 mmol/L (22-30)
[2019-01-09] MEDS: 1: MVI, ADULT NO.4 WITH VIT K 10 ML, TRACE (CONC-1ML/DOSE) 1 ML, CALCIUM GLUCONATE 1 GM, IV SCH ×12 (05:59→21:27)
[2019-01-09 06:11] LABS: Glucose,Whole Blood 156 mg/dL (75-99)
[2019-01-09] MEDS: VANCOMYCIN 1,250 MG in SODIUM CHLORIDE 0.9% 250 ML IVPB SCH ×3 (06:42→22:44)
[2019-01-09] MEDS: fentaNYL (PF) 1,000 MCG in SODIUM CHLORIDE 0.9% 80 ML IV SCH ×2 (07:00→15:28)
[2019-01-09] MEDS: NOREPINEPHRINE 32 MG in SODIUM CHLORIDE 0.9% 218 ML IV SCH (07:07)
[2019-01-09 07:10] LABS: ABG Base Excess 15.1 mmol/L; ABG Oxygen Saturation 96.5 % (94-97); ABG PCO2 61 mmHg (35-45); ABG PH 7.42 (7.35-7.45); ABG PO2 99 mmHg (83-108); ABG TCO2 41 mmol/L (19-24); Allen Test Performed? Yes
[2019-01-09 07:13] LABS: ABG HCO3 40 mmol/L (21-25)
[2019-01-09] MEDS: BUDESONIDE 1 MG/2 ML NEBU INHALATION SCH ×2 (07:54→19:29)
[2019-01-09] MEDS: FORMOTEROL FUMARATE 20 MCG/2 ML NEBU INHALATION SCH ×2 (07:54→19:29)
--- NOTE | 2019-01-09 08:24 | XR ---
EXAMINATION TYPE: XR chest 1V portable DATE OF EXAM: 01/09/2019 COMPARISON: 01/08/2019 HISTORY: SOB, Follow Up FINDINGS: Indwelling tubes and catheters are unchanged. Pulmonary venous congestion with scattered infiltrates and pleural effusions persist without signific ant change. Stable appearance of the cardio-mediastinal structures at this time. Pleural effusion unchanged. IMPRESSION: 1. Stable portable chest. Clinical correlation and follow up until resolution is recommended.
[2019-01-09 08:49] LABS: ABG HCO3 43 mmol/L (21-25)
[2019-01-09 08:50] LABS: ABG PCO2 76 mmHg (35-45)
[2019-01-09] MEDS: ANIDULAFUNGIN 100 MG in SODIUM CHLORIDE 0.9% 100 ML IVPB SCH (09:31)
[2019-01-09] MEDS: PANTOPRAZOLE 40 MG/10 ML VIAL IVP SCH ×2 (09:43→21:39)
[2019-01-09] MEDS: FUROSEMIDE 10 MG/ML 4 ML VIAL IV SCH (09:43)
[2019-01-09] MEDS: MAG HYDROX/AL HYDROX/SIMETH 30 ML, LIDOCAINE VISCOUS 30 ML, diphenhydrAMINE ELIXIR 75 M... PO SCH ×12 (09:44→21:39)
[2019-01-09] MEDS: SENNOSIDES-DOCUSATE SODIUM 1 EACH TAB PO SCH ×2 (09:44→20:51)
[2019-01-09] MEDS: CHLORHEXIDINE GLUCONATE 15 ML CUP MUCOUS MEM SCH ×2 (09:44→21:39)
[2019-01-09] MEDS: LACTULOSE 200 GM/300 ML (FROM 1/2 GAL JUG) RECTAL SCH (10:38)
--- NOTE | 2019-01-09 11:03 | P.PN ---
Subjective Progress Note Date: 01/09/19 Principal diagnosis: Acute hypoxic respiratory failure/ARDS with diffuse bilateral pulmonary infiltrates. On 01/05/2019, I'm seeing this patient for a follow-up. The patient is post tracheostomy tube insertion that was done yesterday without any complications. We are trying to wean him off the Nimbex for now. We were able to get it off yesterday yet briefly he required minimal paralysis to maintain synchrony. Note that this morning, the patient was quite comfortable. I changed him to VC loss mode with a tidal volume of 400 and the rate of 34 with an FiO2 of 55% and PEEP of 12. He is I time is 1. the patient is having some leaks around the tracheostomy tube and he is losing some volumes. This is probably in the form of 50 mL and for that reason I increased the tidal volume to counteract for that. His static pressures remains below 35. His blood gases on the current vent settings shows a pH of 7. episodes of 84 and pO2 of 81. The patient's chest x-ray shows no changes. Tracheostomy tube is in a good location. White cell count is up to 21. Nevertheless he does not have any fever. The orogastric tube has been removed. The patient has TPN for nutritional support. We will still being diuresis with IV Lasix. He was given Diamox for metabolic alkalosis. His serum bicarbs at 38. He is on IV Lasix. The fluid balance is - 2.4 L over the past 24 hours. The patient is receiving Lasix 40 mg IV push every 24 hours. He remains on broad-spectrum antibiotics. He remains on IV Solu-Medrol. His cardiac rhythm is sinus. He is on a combination of propofol for sedation index was being is less for paralysis. Tracheostomy tube is in place for now. This is a Bivona tracheostomy tube #8 with a foamy cuff Reevaluated today on 01/06/2019, patient remains on mechanical ventilation, off levo fed, off Nimbex, ventilator settings are tidal volume of 500, assist control rate of 30, FiO2 55%, and PEEP of 12. Patient is on fentanyl at 75 mcg/h, his also on propofol at 75 mcg/kg/m. He is also on TPN, continues to have significant leak from the tracheostomy site, and were making up for the leak by increasing his tidal volume from 400-500. He is actually getting about 400 mL of tidal volume. Repeat ABG showed a pO2 of 65 is CO2 of 76 pH of 7.40. CBC showed WBC count of 17 hemoglobin of 10.2. Chest x-ray showed small left pleural effusion and bibasilar reticulonodular infiltrates and/or edema. Patient is fully sedated, and his ventilator settings were adjusted accordingly. Reevaluated today on 01/07/2019, remains on mechanical ventilation, presently off norepinephrine for the last 1 hour. His ventilator settings are assist control rate of 30 tidal volume of 500, FiO2 of 50%, PEEP of 12. Patient is presently off norepinephrine, remains on fentanyl at 1 mcg/kg/h, and he is on propofol at 50 mcg/kg/m. Remains on TPN, labs including ABG showed a pO2 of 139 pCO2 of 59 pH of 7.48. His WBC count is 12.6 hemoglobin is 9.9 electrolytes were reviewed his bicarb is elevated at 38, BUN is 28 creatinine 0.32. Patient continues to have about 100 mL leak per tidal volume through the tracheostomy. And were making up for this volume loss by increasing his tidal volume up to 500 and he seems to be getting about 400 mL of tidal volume. FiO2 was cut down to 50%, and the plan is to cut down the PEEP hopefully to 10 or maybe 8. Family is at bedside, and clearly the patient is nowhere near weaning but will try to give him a sedation holiday today, and at least assess mental status. We will hold propofol and fentanyl for a short of time and assess mental status. Chest x-ray is showing some improvement especially in the left lower lobe infiltrate and left pleural effusion. Remains on antibiotics for presumptive aspiration pneumonia. Reevaluated today on , remains on mechanical ventilation, present vent settings are assist control rate of 30 tidal volume of 500 FiO2 of 55% PEEP of 12 the plateau pressures about 26. Patient remains on propofol at 50 mcg/kg/m, his also on sentinel at 1.5 mcg/kg/h. Yesterday he had a slight drop in his sedation, and he became extremely tachypneic, tachycardic, and very asynchronous with mechanical ventilation, and Desaturating, had to be placed back on sedation. Remains off Nimbex. Chest x-ray continues to show bilateral interstitial opacities, right more so than left, and bibasilar atelectasis. Small pleural effusions noted. Not much of a change noted on the chest x-ray. ABG today showed a pO2 of 86 pCO2 of 62 pH of 7.41. CBC showed the PEEP cigar 40.3 hemoglobin of 9.9. Electrolytes are normal. BUN is 28 creatinine is 0.39. Reevaluated today on 01/09/2019, patient remains on mechanical ventilation, his ventilator settings are assist control rate of 30, tidal volume of 500, FiO2 55%, PEEP of 12. Remains on fentanyl at 1.5 mcg/kg/h and on propofol 60 mcg/kg/m. Off levo fed, patient seems to require significant amount of sedation otherwise he becomes extremely agitated and asynchronous with mechanical ventilation. His even requiring Dilaudid in addition to his fentanyl drip. Chest x-ray is basically about the same showing pulmonary vascular congestion with scattered infiltrates and effusions bilaterally. No significant change in the last 2 days. ABG this morning showed a pO2 of 99 pCO2 of 61 pH of 7.42. Patient remains on TPN, remains on rectal lactulose. Ammonia level today is 46. Objective - Vital Signs Vital signs: Vital Signs Temp 98.3 F 01/09/19 08:00 Pulse 112 H 01/09/19 10:00 Resp 30 H 01/09/19 10:00 BP 96/57 01/09/19 10:00 Pulse Ox 98 01/09/19 10:00 Intake & Output 01/08/19 01/09/19 01/09/19 18:59 06:59 18:59 Intake Total 2354.7983 767.408 785.028 Output Total 1980 1185 575 Balance 374.7983 -417.592 210.028 Weight 78.4 kg 79.4 kg Intake: IV 846 486 692 .9 360 350 120 Calcium Gluconate 1 gm 210 Potassium Phosphate 10 mmol Sodium Chloride 2. 5MEQ/ml Vial 25 meq In Amino Acid 5%-D15w 1,000 ml @ 70 mls/hr IV .BY DURATION [facility] Rx#: [id number] Meropenem 1 gm In Sodium 200 100 100 Chloride 0.9% 100 ml @ 200 mls/hr IVPB Q8HR [facility] Rx#:[id number] Vancomycin 1,250 mg In 250 250 Sodium Chloride 0.9% 250 ml @ 125 mls/hr IVPB Q8H [facility] Rx#:[id number] pressure bag 36 36 12 Intake, IV Titration 1508.7983 281.408 93.028 Amount Anidulafungin 100 mg In 130 Sodium Chloride 0.9% 100 ml @ 84 mls/hr IVPB DAILY [facility] Rx#:[id number] Calcium Gluconate 1 gm 1023.3333 Potassium Phosphate 10 mmol Sodium Chloride 2. 5MEQ/ml Vial 25 meq In Amino Acid 5%-D15w 1,000 ml @ 70 mls/hr IV .BY DURATION [facility] Rx#: [id number] Propofol 1,000 mg In 288.699 178.832 88.240 Empty Bag 1 bag @ Titrate IV .Q0M [facility] Rx#: [id number] fentaNYL (PF) 1,000 mcg 66.766 102.576 4.788 In Sodium Chloride 0.9% 80 ml @ 1 MCG/KG/HR 7.98 mls/hr IV .[id number] [facility] Rx #:[id number] Output: Urine 1980 1185 575 Other: Voiding Method Indwelling Catheter Indwelling Catheter ABP, PAP, CO, CI - Last Documented Arterial Blood Pressure 184/82 - Exam General: Revealed a 48-year-old white male sedated, on mechanical ventilation, sedated. Head: Atraumatic, normocephalic Neck: Supple, Neck was supple and without jugular venous distension, thyromegaly, or carotid bruits. Carotids were easily palpable bilaterally. Tracheostomy seems to be intact, minimal air leak noted. Mouth: Normal mucous membranes, moist, no thrush noted. Neck: No Palpable cervical, tracheostomy is intact. No neck masses. Heart: Normal S1 and S2, no gallop. No murmur. heart sound was noted. There were no murmurs, rubs, clicks, or gallops. Lungs: Persistent Crackles and rhonchi at the bases. No wheezing. Symmetrical chest expansion. No chest wall tenderness Abdomen: Soft nontender no megaly no rebound no guarding. Extremities: No clubbing edema or cyanosis, good pulses bilaterally Neurological: Cannot be assessed, patient is fully sedated, unable to cut down on sedation much since the patient gets extremely restless agitated and a synchronous with mechanical ventilation plus desaturate significantly. Psych: Unable to perform, sedated with propofol and fentanyl. Examination of the skin revealed no evidence of significant rashes, suspicious appearing nevi or other concerning lesions. - Labs CBC & Chem 7: 01/09/19 04:16 01/09/19 04:16 Labs: Abnormal Lab Results - Last 24 Hours (Table) 01/06/19 01/06/19 01/08/19 Range/Units 04:45 10:15 11:57 WBC (3.8-10.6) k/uL RBC (4.30-5.90) m/uL Hgb (13.0-17.5) gm/dL Hct (39.0-53.0) % MCHC (31.0-37.0) g/dL RDW (11.5-15.5) % Neutrophils # (1.3-7.7) k/uL Lymphocytes # (1.0-4.8) k/uL ABG pCO2 76 H* (35-45) mmHg ABG HCO3 43 H* 47 H* (21-25) mmol/L ABG Total CO2 (19-24) mmol/L Carbon Dioxide (22-30) mmol/L BUN (9-20) mg/dL Creatinine (0.66-1.25) mg/dL Glucose (74-99) mg/dL POC Glucose (mg/dL) 122 H (75-99) mg/dL Calcium (8.4-10.2) mg/dL Alkaline Phosphatase (38-126) U/L Ammonia (<30) umol/L Total Protein (6.3-8.2) g/dL Albumin (3.5-5.0) g/dL 01/08/19 01/09/19 01/09/19 Range/Units 17:55 00:22 04:16 WBC (3.8-10.6) k/uL RBC (4.30-5.90) m/uL Hgb (13.0-17.5) gm/dL Hct (39.0-53.0) % MCHC (31.0-37.0) g/dL RDW (11.5-15.5) % Neutrophils # (1.3-7.7) k/uL Lymphocytes # (1.0-4.8) k/uL ABG pCO2 (35-45) mmHg ABG HCO3 (21-25) mmol/L ABG Total CO2 (19-24) mmol/L Carbon Dioxide 40 H (22-30) mmol/L BUN 22 H (9-20) mg/dL Creatinine 0.42 L (0.66-1.25) mg/dL Glucose 163 H (74-99) mg/dL POC Glucose (mg/dL) 133 H 134 H (75-99) mg/dL Calcium 8.2 L (8.4-10.2) mg/dL Alkaline Phosphatase 142 H (38-126) U/L Ammonia (<30) umol/L Total Protein 4.8 L (6.3-8.2) g/dL Albumin 2.3 L (3.5-5.0) g/dL 01/09/19 01/09/19 01/09/19 Range/Units 04:16 04:16 05:45 WBC 16.6 H (3.8-10.6) k/uL RBC 3.22 L (4.30-5.90) m/uL Hgb 9.2 L (13.0-17.5) gm/dL Hct 30.7 L (39.0-53.0) % MCHC 30.2 L (31.0-37.0) g/dL RDW 18.7 H (11.5-15.5) % Neutrophils # 15.6 H (1.3-7.7) k/uL Lymphocytes # 0.5 L (1.0-4.8) k/uL ABG pCO2 (35-45) mmHg ABG HCO3 (21-25) mmol/L ABG Total CO2 (19-24) mmol/L Carbon Dioxide (22-30) mmol/L BUN (9-20) mg/dL Creatinine (0.66-1.25) mg/dL Glucose (74-99) mg/dL POC Glucose (mg/dL) 156 H (75-99) mg/dL Calcium (8.4-10.2) mg/dL Alkaline Phosphatase (38-126) U/L Ammonia 46 H (<30) umol/L Total Protein (6.3-8.2) g/dL Albumin (3.5-5.0) g/dL 01/09/19 Range/Units 07:08 WBC (3.8-10.6) k/uL RBC (4.30-5.90) m/uL Hgb (13.0-17.5) gm/dL Hct (39.0-53.0) % MCHC (31.0-37.0) g/dL RDW (11.5-15.5) % Neutrophils # (1.3-7.7) k/uL Lymphocytes # (1.0-4.8) k/uL ABG pCO2 61 H (35-45) mmHg ABG HCO3 40 H* (21-25) mmol/L ABG Total CO2 41 H (19-24) mmol/L Carbon Dioxide (22-30) mmol/L BUN (9-20) mg/dL Creatinine (0.66-1.25) mg/dL Glucose (74-99) mg/dL POC Glucose (mg/dL) (75-99) mg/dL Calcium (8.4-10.2) mg/dL Alkaline Phosphatase (38-126) U/L Ammonia (<30) umol/L Total Protein (6.3-8.2) g/dL Albumin (3.5-5.0) g/dL Assessment and Plan Assessment: Impression: 1 acute hypoxic respiratory failure/ARDS with bilateral pulmonary infiltrates, most likely secondary to aspiration pneumonia, possibility of lymphangitic carcinomatosis involving the lungs is not entirely ruled out 2 metastatic esophageal cancer, possible lymphangitic carcinomatosis. Patient is not a good candidate for bronchoscopy. 3 recurrent episodes of aspiration pneumonia 4 oropharyngeal candidiasis, improving on Diflucan. 5 history of generalized anxiety disorder 6 acute septic shock and acute hypotension on presentation, resolved. Recommendation: Continue ventilatory support Continue nutritional support Continue antibiotics, steroids, bronchodilators, GI and DVT prophylaxis, cutting down on sedation , multiple trials have failed. Family has been updated on his condition today, made aware that his condition is not showing any significant improvement, made aware that his condition remains critical, and made aware that his prognosis is extremely poor. I believe in the next few days family would be approach and I am almost certain they would be agreeable to go with comfort care measures. Prognosis is extremely poor. Critical care time is 36 minute Time with Patient: Greater than 30
[2019-01-09 11:29] VITALS: BMI 25.1
[2019-01-09 12:04] LABS: Glucose,Whole Blood 138 mg/dL (75-99)
--- NOTE | 2019-01-09 12:57 | P.PN ---
Subjective Progress Note Date: 01/09/19 Principal diagnosis: Hypoxia fever Robe remains on mechanical ventilation. He has fentanyl and propofol infusing. Is still requiring sedation to remain calm and allow mechanical ventilation. Reviewed most recent Chest x-ray similiar to prior with pulmonary vascular congestion and some scattered infiltrates and effusions bilaterally. TPN is infusing and lactulose for encephalopathy. Objective - Vital Signs Vital signs: Vital Signs Temp 98.3 F 01/09/19 12:00 Pulse 100 01/09/19 12:00 Resp 27 H 01/09/19 12:00 BP 102/60 01/09/19 12:00 Pulse Ox 90 L 01/09/19 12:00 Intake & Output 01/08/19 01/09/19 01/09/19 18:59 06:59 18:59 Intake Total 2354.7983 767.408 991.028 Output Total 1980 1185 1050 Balance 374.7983 -417.592 -58.972 Weight 78.4 kg 79.4 kg 79.4 kg Intake: IV 846 486 898 .9 360 350 180 Calcium Gluconate 1 gm 350 Potassium Phosphate 10 mmol Sodium Chloride 2. 5MEQ/ml Vial 25 meq In Amino Acid 5%-D15w 1,000 ml @ 70 mls/hr IV .BY DURATION [facility] Rx#: [id number] Meropenem 1 gm In Sodium 200 100 100 Chloride 0.9% 100 ml @ 200 mls/hr IVPB Q8HR [facility] Rx#:[id number] Vancomycin 1,250 mg In 250 250 Sodium Chloride 0.9% 250 ml @ 125 mls/hr IVPB Q8H [facility] Rx#:[id number] pressure bag 36 36 18 Intake, IV Titration 1508.7983 281.408 93.028 Amount Anidulafungin 100 mg In 130 Sodium Chloride 0.9% 100 ml @ 84 mls/hr IVPB DAILY [facility] Rx#:[id number] Calcium Gluconate 1 gm 1023.3333 Potassium Phosphate 10 mmol Sodium Chloride 2. 5MEQ/ml Vial 25 meq In Amino Acid 5%-D15w 1,000 ml @ 70 mls/hr IV .BY DURATION [facility] Rx#: [id number] Propofol 1,000 mg In 288.699 178.832 88.240 Empty Bag 1 bag @ Titrate IV .Q0M [facility] Rx#: [id number] fentaNYL (PF) 1,000 mcg 66.766 102.576 4.788 In Sodium Chloride 0.9% 80 ml @ 1 MCG/KG/HR 7.98 mls/hr IV .[id number] [facility] Rx #:[id number] Output: Urine 1980 1185 1050 Other: Voiding Method Indwelling Catheter Indwelling Catheter ABP, PAP, CO, CI - Last Documented Arterial Blood Pressure 90/48 - Exam General: Trach and intubated Sedated Head: Normocytic, Atraumatic Neck: Supple Mouth: No Lesions, No Thrush Eyes: Non-sclerotic Heart: Tachy Lungs:Diminished throughout Abdomen: Soft Extremities: Upper and lower edema - Labs CBC & Chem 7: 01/10/19 04:25 01/10/19 04:25 Labs: Abnormal Lab Results - Last 24 Hours (Table) 01/06/19 01/06/19 01/08/19 Range/Units 04:45 10:15 17:55 WBC (3.8-10.6) k/uL RBC (4.30-5.90) m/uL Hgb (13.0-17.5) gm/dL Hct (39.0-53.0) % MCHC (31.0-37.0) g/dL RDW (11.5-15.5) % Neutrophils # (1.3-7.7) k/uL Lymphocytes # (1.0-4.8) k/uL ABG pCO2 76 H* (35-45) mmHg ABG HCO3 43 H* 47 H* (21-25) mmol/L ABG Total CO2 (19-24) mmol/L Carbon Dioxide (22-30) mmol/L BUN (9-20) mg/dL Creatinine (0.66-1.25) mg/dL Glucose (74-99) mg/dL POC Glucose (mg/dL) 133 H (75-99) mg/dL Calcium (8.4-10.2) mg/dL Alkaline Phosphatase (38-126) U/L Ammonia (<30) umol/L Total Protein (6.3-8.2) g/dL Albumin (3.5-5.0) g/dL 01/09/19 01/09/19 01/09/19 Range/Units 00:22 04:16 04:16 WBC 16.6 H (3.8-10.6) k/uL RBC 3.22 L (4.30-5.90) m/uL Hgb 9.2 L (13.0-17.5) gm/dL Hct 30.7 L (39.0-53.0) % MCHC 30.2 L (31.0-37.0) g/dL RDW 18.7 H (11.5-15.5) % Neutrophils # 15.6 H (1.3-7.7) k/uL Lymphocytes # 0.5 L (1.0-4.8) k/uL ABG pCO2 (35-45) mmHg ABG HCO3 (21-25) mmol/L ABG Total CO2 (19-24) mmol/L Carbon Dioxide 40 H (22-30) mmol/L BUN 22 H (9-20) mg/dL Creatinine 0.42 L (0.66-1.25) mg/dL Glucose 163 H (74-99) mg/dL POC Glucose (mg/dL) 134 H (75-99) mg/dL Calcium 8.2 L (8.4-10.2) mg/dL Alkaline Phosphatase 142 H (38-126) U/L Ammonia (<30) umol/L Total Protein 4.8 L (6.3-8.2) g/dL Albumin 2.3 L (3.5-5.0) g/dL 01/09/19 01/09/19 01/09/19 Range/Units 04:16 05:45 07:08 WBC (3.8-10.6) k/uL RBC (4.30-5.90) m/uL Hgb (13.0-17.5) gm/dL Hct (39.0-53.0) % MCHC (31.0-37.0) g/dL RDW (11.5-15.5) % Neutrophils # (1.3-7.7) k/uL Lymphocytes # (1.0-4.8) k/uL ABG pCO2 61 H (35-45) mmHg ABG HCO3 40 H* (21-25) mmol/L ABG Total CO2 41 H (19-24) mmol/L Carbon Dioxide (22-30) mmol/L BUN (9-20) mg/dL Creatinine (0.66-1.25) mg/dL Glucose (74-99) mg/dL POC Glucose (mg/dL) 156 H (75-99) mg/dL Calcium (8.4-10.2) mg/dL Alkaline Phosphatase (38-126) U/L Ammonia 46 H (<30) umol/L Total Protein (6.3-8.2) g/dL Albumin (3.5-5.0) g/dL 01/09/19 Range/Units 12:01 WBC (3.8-10.6) k/uL RBC (4.30-5.90) m/uL Hgb (13.0-17.5) gm/dL Hct (39.0-53.0) % MCHC (31.0-37.0) g/dL RDW (11.5-15.5) % Neutrophils # (1.3-7.7) k/uL Lymphocytes # (1.0-4.8) k/uL ABG pCO2 (35-45) mmHg ABG HCO3 (21-25) mmol/L ABG Total CO2 (19-24) mmol/L Carbon Dioxide (22-30) mmol/L BUN (9-20) mg/dL Creatinine (0.66-1.25) mg/dL Glucose (74-99) mg/dL POC Glucose (mg/dL) 138 H (75-99) mg/dL Calcium (8.4-10.2) mg/dL Alkaline Phosphatase (38-126) U/L Ammonia (<30) umol/L Total Protein (6.3-8.2) g/dL Albumin (3.5-5.0) g/dL Assessment and Plan Plan: Assessment and Plan: Febrile on Chemotherapy: - Improved, Afebrile - Infectious Disease following - Serial Chest Xrays and Pulmonary/Exercise Rider management Esophageal Cancer: Recurrent: - Currently on Chemotherapy with primary Oncologist Dr. Lockwood - Treatment on hold until acute situation resolves Vent-Dependent Respiratory Failure Acute Hypoxic Respiratory Failure: - Per ICU Care - Intubated sedated trach collar Plan: - Trach, Vent support - Emotional support provided to and will have social service technician from [facility] discuss finacial worries with her tomorrow - ICU and PUlm Care - Aggressive Supportive Care Anabela Negrete AOP
--- NOTE | 2019-01-09 13:56 | P.PN ---
Subjective Progress Note Date: 01/09/19 This is a 48-year-old gentleman with history of esophageal cancer, completed radiation and chemotherapy, history of gastric pull-through, recent biopsy reporting adenocarcinoma with chemotherapy resumed. T-max on admission 100.3, WBC 14.6, neutrophils normal, hemoglobin ,platelets, electrolytes essentially normal.Currently T-max 100.2, WBC improving, down to 12.4.. Maintained on IV fluid hydration of D5.45 MLS per hour, cefepime, vancomycin. Speech consulted to evaluate for silent aspiration(prior history of PEG tube which has been discontinued). Chest x-ray reported new multifocal airspace disease possible multifocal pneumonia versus pulmonary edema. F/U chest x-ray this morning with no significant change. On admission patient had been satting high 90s on room air. During the afternoon patient sats decreased to 93-94%. Last night, patient desatted to 70s to 80s %, A teamed called, received a dose of Lasix 40 IV push and placed on BiPAP. BiPAP weaned off currently on 15 L high flow nasal cannula this morning, maintaining O2 sats of 93%. No further nausea vomiting or diarrhea. Tolerating clear liquid diet. 12/26/2018 Tested negative for influenza, CT negative for PE, received a couple doses of Lasix for potential pulmonary edema, Swallow evaluation per speech therapy with no aspiration observed, universal aspiration precautions recommended..During the night, patient desatted, did not respond to BiPAP, transferred to ICU and placed on Airvo. Maintaining O2 sats of low 90s on 80% airvo. Maintained on IV antibiotics of vancomycin, Maxipime as per infectious disease. T-max 100.4,WBC WNL. Preliminary blood cultures negative at 24 hours .Continues on nebulized bronchodilators. Feels better this morning. 12/27/2018: She remains on high flow nasal cannula oxygen. Pulse ox is 92%. He remains on IV vancomycin plus Maxipime for antibiotic coverage. Solu-Medrol was started yesterday and seems to help. He remains nothing by mouth for suspected chronic aspiration. His is at bedside. Chest x-ray today shows worsening interstitial airspace disease. Clinically he feels better. Staff report he is doing better. 12/28/2018: Patient's chest x-ray shortness of breath continue worsen. He is unable to move significantly not descending. He remains on Airvo. His remains at bedside. I discussed this case with Dr. Wade, he is considering bronchoscopy, but fears that he would end up being intubated and unable to ween.Exact cause of his symptoms are unknown without multifactorial due to aspiration pneumonia, chemical pneumonitis due to chemotherapy, and other factors. 12/29/2018 Maintained on vancomycin and cefepime as per ID. Remains airvo de pendent, maintaining O2 sats of 95% on 60%. chest x-ray reporting stable bilateral pneumonia, ARDS, or pulmonary edema; diffuse increase in opacification to the right lung. Recurrent emesis , aspiration risks changed to NPO, TPN ordered. Blood sugars controlled. Oral thrush, Diflucan initiated. T-max 99.9, WBC down to 15.1. 12/30/2018 respiratory status continued to deteriorate yesterday and patient required intubation yesterday afternoon. Chest x-ray reporting slight improvement in diffuse pulmonary edema, persistent interstitial opacity's bilaterally right more than left, bibasilar atelectasis. ABGs reflected severe respiratory acidosis this morning. FiO2 has been weaned down to 70%, PEEP has been weaned down to 14. Mild sinus tachycardia. Currently on pressor support of Levophed 40 mcgs, and on chemical paralysis with Nimbex. Right pupil fixed and dilated, unstable at this time for transfer to CT. potassium elevated at 6.2 received sodium bicarb D50, insulin, down to 5.8. Afebrile, White count up to 52, on Merrem ,Vancomycin and Diflucan. Repeat cultures sent. Maintained on TPN. Continues on nebulized bronchodilators, IV steroids 12/31/18 Maintained on Nimbex drip, ABGs improved with FiO2 decreased to 50% and PEEP down to 12%,cuff leak resolved with ETT repositioned.Levophed weaned down to 2 mcgs. Maintained on TPN. Continues on nebulized bronchodilators, IV s teroids. Aggressive fluid resuscitation decreased, positive fluid balance with extremity edema .Afebrile,cultures negative. 01/01/2019 sputum culture report and Fabi glabrata and Fabi albicans, repeat sputum culture pending. Maintained on IV antibiotics of vancomycin and Merrem.afebrile,WBC decreased to 12.7.Attempted Nimbex weaning, not tolerated, peak pressure reading, and oxygenating, desatted into the 80s.Nimbex resumed. patient was maintaining O2 sats in the high 80s, ABGs noted, including PO2 of 67. Vent changes: Rate decreased, FiO2 increased to 60%,complete maintained and 12. chest x-ray reporting mild improvement of bibasilar infiltrates. IV fluids decreased yesterday,continues on 0.9 at KVO, as well as TPN.24 hour I&O reflecting a negative fluid balance.Positive bowel movement this morning. 01/02/2019 Remains vent dependent on FiO2 of 60%/+12 Peep. Maintained on Nimbex and Diprovan. Dr. Padilla consulted regarding tracheostomy. Telemetry sinus rhythm to sinus tach. 01/03/2019: Patient remains in the intensive care unit, intubated, sedated and mechanically ventilated. His current PEEP is 12. FiO2 is still 60%. HEENT been able to wean off the paralytic agent. He remains on fluconazole, meropenem and vancomycin for antibiotic coverage. His is at bedside. Telemetry continues to show sinus rhythm. Achy ostomy is planned for the near future ba sed on his status. He is slightly improved today compared to yesterday. 01/05/2019: Patient remains in intensive care unit. He is sedated and paralyzed once again. He remains on mechanical ventilation, now through the tracheostomy tube. Tracheostomy was placed yesterday. His is at bedside, care discussed with her briefly. ICU nurse was also present. He remains on fluconazole, meropenem, and vancomycin for antibiotic coverage. propofol, Cistacuium and fentanyl for sedation and paralyzation. He also is now on TPN 01/06/19 maintained on vent support with FiO2 50%/+12 of PEEP via trach.. ABGs noted, rate and tidal volume adjusted ,mild cuff leak. Chest x-ray reporting stable persistent small left pleural effusion and bibasilar reticulonodular infiltrates/edema. Nimbex has been weaned off, maintained on both Diprovan and fentanyl. Continues on fluconazole, vancomycin and Maxipime as per ID. telemetry sinus rhythm to sinus tach. Afebrile. 01/07/2019 continues on IV antibiotics. Chest x-ray and ABGs Better. FiO2 decreased to 50%/+5 of PEEP. Desatted and FiO2 increased back to 55%. Fluctuating hypotension, on and off Levophed. Attempting to assess mentation with fentanyl and Diprovan being weaned off. Family meeting this afternoon with oncology. 01/08/2019 maintained on mechanical ventilation via tracheostomy, FiO2 55%/+12 of PEEP. Sedated on fentanyl and Diprovan; unable to currently wean off sedation-patient stacking breaths, high pressures, becomes asynchronous with ventilator and desats. Hypertensive earlier, Levofed currently off. Chest x- ray similar with bilateral interstitial opacities, right greater than left, small pleural effusions, bibasilar atelectasis. Alk phos 145. Ammonia 63 yesterday, lactulose initiated, currently down to 52. 01/09/2019 Chest x-ray reporting pulmonary vascular congestion, bilateral scattered infiltrates and effusions. Maintained on vent support of FiO2 55%/12 Peep. Ammonia continues to trend down,46, on lactulose.Continues on TPN, Diprivan and fentanyl drips. Required Levophed on and off throughout the night and currently off. Positive cuffleak,decent volumes. Requires significant sedation to remain synchronous with mechanical ventilation. Blood pressure continues to fluctuate. Objective - Vital Signs Vital signs: Vital Signs Temp 98.3 F 01/09/19 08:00 Pulse 89 01/09/19 09:00 Resp 26 H 01/09/19 09:00 BP 88/53 01/09/19 09:00 Pulse Ox 97 01/09/19 09:00 Intake & Output 01/08/19 01/09/19 01/09/19 18:59 06:59 18:59 Intake Total 2354.7983 767.408 484.913 Output Total 1980 1185 225 Balance 374.7983 -417.592 259.913 Weight 78.4 kg 79.4 kg Intake: IV 846 486 449 .9 360 350 90 Meropenem 1 gm In Sodium 200 100 100 Chloride 0.9% 100 ml @ 200 mls/hr IVPB Q8HR [facility] Rx#:[id number] Vancomycin 1,250 mg In 250 250 Sodium Chloride 0.9% 250 ml @ 125 mls/hr IVPB Q8H [facility] Rx#:[id number] pressure bag 36 36 9 Intake, IV Titration 1508.7983 281.408 35.913 Amount Anidulafungin 100 mg In 130 Sodium Chloride 0.9% 100 ml @ 84 mls/hr IVPB DAILY [facility] Rx#:[id number] Calcium Gluconate 1 gm 1023.3333 Potassium Phosphate 10 mmol Sodium Chloride 2. 5MEQ/ml Vial 25 meq In Amino Acid 5%-D15w 1,000 ml @ 70 mls/hr IV .BY DURATION [facility] Rx#: [id number] Propofol 1,000 mg In 288.699 178.832 31.125 Empty Bag 1 bag @ Titrate IV .Q0M [facility] Rx#: [id number] fentaNYL (PF) 1,000 mcg 66.766 102.576 4.788 In Sodium Chloride 0.9% 80 ml @ 1 MCG/KG/HR 7.98 mls/hr IV .[id number] [facility] Rx #:[id number] Output: Urine 1980 1185 225 Other: Voiding Method Indwelling Catheter Indwelling Catheter ABP, PAP, CO, CI - Last Documented Arterial Blood Pressure 111/50 - Exam VITAL SIGNS: As above GENERAL: Lying in bed, calm, intubated, sedated HEENT: Conjunctivae normal. Pupils equal, oral mucosa dry NECK: Supple, tracheostomy tube present CARDIOVASCULAR: S1, S2 regular. No murmur, no rub, no gallop. RESPIRATION: Breath sounds diminished .Scattered rhonchi with bibasilar crackles. No wheezing ABDOMEN: Soft, nondistended, nontender. no masses palpable. Bowel sounds heard. EXTREMITIES: positive edema. no cyanosis, no clubbing. NERVOUS SYSTEM: Unable to evaluate at this time, as patient intubated sedated Microbiology 12/31/18 20:40 Sputum Gram Stain - Final 12/31/18 20:40 Sputum Sputum Culture - Final Fabi albicans Fabi glabrata 12/29/18 23:54 Sputum Gram Stain - Final 12/29/18 23:54 Sputum Sputum Culture - Final Fabi glabrata Fabi albicans 12/24/18 11:30 Blood Blood Culture - Final No Growth after 144 hours 12/24/18 09:40 Blood Blood Culture - Final No Growth after 144 hours 12/26/18 03:35 Sputum Gram Stain - Final 12/26/18 03:35 Sputum Sputum Culture - Final - Labs CBC & Chem 7: 01/09/19 04:16 01/09/19 04:16 Labs: Abnormal Lab Results - Last 24 Hours (Table) 01/06/19 01/06/19 01/08/19 Range/Units 04:45 10:15 11:57 WBC (3.8-10.6) k/uL RBC (4.30-5.90) m/uL Hgb (13.0-17.5) gm/dL Hct (39.0-53.0) % MCHC (31.0-37.0) g/dL RDW (11.5-15.5) % Neutrophils # (1.3-7.7) k/uL Lymphocytes # (1.0-4.8) k/uL ABG pCO2 76 H* (35-45) mmHg ABG HCO3 43 H* 47 H* (21-25) mmol/L ABG Total CO2 (19-24) mmol/L Carbon Dioxide (22-30) mmol/L BUN (9-20) mg/dL Creatinine (0.66-1.25) mg/dL Glucose (74-99) mg/dL POC Glucose (mg/dL) 122 H (75-99) mg/dL Calcium (8.4-10.2) mg/dL Alkaline Phosphatase (38-126) U/L Ammonia (<30) umol/L Total Protein (6.3-8.2) g/dL Albumin (3.5-5.0) g/dL 01/08/19 01/09/19 01/09/19 Range/Units 17:55 00:22 04:16 WBC (3.8-10.6) k/uL RBC (4.30-5.90) m/uL Hgb (13.0-17.5) gm/dL Hct (39.0-53.0) % MCHC (31.0-37.0) g/dL RDW (11.5-15.5) % Neutrophils # (1.3-7.7) k/uL Lymphocytes # (1.0-4.8) k/uL ABG pCO2 (35-45) mmHg ABG HCO3 (21-25) mmol/L ABG Total CO2 (19-24) mmol/L Carbon Dioxide 40 H (22-30) mmol/L BUN 22 H (9-20) mg/dL Creatinine 0.42 L (0.66-1.25) mg/dL Glucose 163 H (74-99) mg/dL POC Glucose (mg/dL) 133 H 134 H (75-99) mg/dL Calcium 8.2 L (8.4-10.2) mg/dL Alkaline Phosphatase 142 H (38-126) U/L Ammonia (<30) umol/L Total Protein 4.8 L (6.3-8.2) g/dL Albumin 2.3 L (3.5-5.0) g/dL 01/09/19 01/09/19 01/09/19 Range/Units 04:16 04:16 05:45 WBC 16.6 H (3.8-10.6) k/uL RBC 3.22 L (4.30-5.90) m/uL Hgb 9.2 L (13.0-17.5) gm/dL Hct 30.7 L (39.0-53.0) % MCHC 30.2 L (31.0-37.0) g/dL RDW 18.7 H (11.5-15.5) % Neutrophils # 15.6 H (1.3-7.7) k/uL Lymphocytes # 0.5 L (1.0-4.8) k/uL ABG pCO2 (35-45) mmHg ABG HCO3 (21-25) mmol/L ABG Total CO2 (19-24) mmol/L Carbon Dioxide (22-30) mmol/L BUN (9-20) mg/dL Creatinine (0.66-1.25) mg/dL Glucose (74-99) mg/dL POC Glucose (mg/dL) 156 H (75-99) mg/dL Calcium (8.4-10.2) mg/dL Alkaline Phosphatase (38-126) U/L Ammonia 46 H (<30) umol/L Total Protein (6.3-8.2) g/dL Albumin (3.5-5.0) g/dL 01/09/19 Range/Units 07:08 WBC (3.8-10.6) k/uL RBC (4.30-5.90) m/uL Hgb (13.0-17.5) gm/dL Hct (39.0-53.0) % MCHC (31.0-37.0) g/dL RDW (11.5-15.5) % Neutrophils # (1.3-7.7) k/uL Lymphocytes # (1.0-4.8) k/uL ABG pCO2 61 H (35-45) mmHg ABG HCO3 40 H* (21-25) mmol/L ABG Total CO2 41 H (19-24) mmol/L Carbon Dioxide (22-30) mmol/L BUN (9-20) mg/dL Creatinine (0.66-1.25) mg/dL Glucose (74-99) mg/dL POC Glucose (mg/dL) (75-99) mg/dL Calcium (8.4-10.2) mg/dL Alkaline Phosphatase (38-126) U/L Ammonia (<30) umol/L Total Protein (6.3-8.2) g/dL Albumin (3.5-5.0) g/dL Assessment and Plan Assessment: (1) Acute hypoxic respiratory failure, ventilator dependent, status post chemical paralysis, secondary to aspiration pneumonia, acute pneumonitis with ARDS, possible chemotherapy induced injury, possible metastatic lymphangitic (2) acute septic shock with severe leukocytosis, pressor dependent, multi- factorial; related to multiple comorbidities, resolved Current Visit: Yes Status: Acute Code(s): J96.01 - ACUTE RESPIRATORY FAILURE WITH HYPOXIA SNOMED Code(s): 16964707 (3) Acute pneumonitis with ARDS, possibly chemotherapy induced Current Visit: Yes Status: Acute Code(s): J18.9 - PNEUMONIA, UNSPECIFIED ORGANISM SNOMED Code(s): 436207297 (3) Aspiration pneumonia,sputum culture reporting Fabi glabrata and Fabi albicans Current Visit: Yes Status: Acute Code(s): J69.0 - PNEUMONITIS DUE TO INHALATION OF FOOD AND VOMIT SNOMED Code(s): 908227668 (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 Recurrent esophageal cancer recent biopsy reporting adenocarcinoma with metastasis to L3 spine and to the stomach, chemotherapy resumed Current Visit: No Status: Acute Code(s): C15.9 - MALIGNANT NEOPLASM OF ESOPHAGUS, UNSPECIFIED SNOMED Code(s): 471122861 (7) oral candidiasis, on DIflucan (8) Generalized anxiety Disorder (9) chronic recurrent aspiration , on TPN (10) leukocytosis (11) NO CODE (12) hyperammonemia Plan: Continue current medication regime ,monitoring and symptomatic treatment. strict aspiration precautions. Slow,Minimal Improvement, [employer] attempting to wean down sedation.Maintain supportive care ;TPN, IV antibiotics, Nebulized bronchodilators, steroids ,IV diuretics. Prognosis extremely guarded given multiple complex medical issues. The impression and plan of care has been dictated as directed. : I performed a history and examination of this patient, discussed the same with the dictator. I agree with the dictator's note ,documented as a scribe. Any additional findings or plans will be noted. Time taken: 35 minutes
[2019-01-09 18:42] LABS: Glucose,Whole Blood 143 mg/dL (75-99)
[2019-01-09] MEDS: traZODone HCL 50 MG TAB PO SCH (20:52)
[2019-01-09] MEDS: SODIUM CHLORIDE 0.9% 1,000 ML IV SCH (21:38)
[2019-01-10] MEDS: MEROPENEM 1 GM in SODIUM CHLORIDE 0.9% 100 ML IVPB SCH ×2 (00:22→09:29)
[2019-01-10] MEDS: methylPREDNISolone SOD SUCCI 125 MG/2 ML VIAL IV SCH ×2 (00:24→08:44)
[2019-01-10] MEDS: HEPARIN SODIUM,PORCINE 5,000 UNIT/ML 1 ML VIAL SQ SCH ×2 (00:24→08:43)
[2019-01-10 00:27] LABS: Glucose,Whole Blood 140 mg/dL (75-99)
[2019-01-10] MEDS: INSULIN ASPART (NovoLOG) 100 UNIT/ML VIAL SQ SCH ×3 (00:30→11:56)
[2019-01-10] MEDS: PROPOFOL 1,000 MG in EMPTY BAG 1 BAG IV SCH ×4 (00:55→08:54)
[2019-01-10] MEDS: fentaNYL (PF) 1,000 MCG in SODIUM CHLORIDE 0.9% 80 ML IV SCH ×2 (01:56→11:49)
[2019-01-10] MEDS: HYDROmorphone 1 MG/ML 1 ML SYRINGE IVP PRN ×3 (01:57→11:34)
[2019-01-10] MEDS: IPRATROPIUM-ALBUTEROL 3 ML NEB INHALATION SCH ×3 (03:12→11:02)
[2019-01-10 05:48] LABS: ALT 46 U/L (21-72); AST 29 U/L (17-59); African American GFR (CKD) >90 (>60 ml/min/1.73 sqM); Albumin 2.2 g/dL (3.5-5.0); Alkaline Phosphatase 145 U/L (38-126); Anion Gap 0 mmol/L; Blood Urea Nitrogen 23 mg/dL (9-20); Calcium 8.3 mg/dL (8.4-10.2); Carbon Dioxide 40 mmol/L (22-30); Chloride 98 mmol/L (98-107); Glucose 161 mg/dL (74-99); Phosphorus 2.8 mg/dL (2.5-4.5); Potassium 4.2 mmol/L (3.5-5.1); Sodium 138 mmol/L (137-145); Total Bilirubin 0.8 mg/dL (0.2-1.3); Total Protein 4.7 g/dL (6.3-8.2)
[2019-01-10 05:59] LABS: Glucose,Whole Blood 162 mg/dL (75-99)
[2019-01-10] MEDS: VANCOMYCIN 1,250 MG in SODIUM CHLORIDE 0.9% 250 ML IVPB SCH (06:06)
[2019-01-10 07:11] LABS: ABG Base Excess 14.4 mmol/L; ABG HCO3 39 mmol/L (21-25); ABG Oxygen Saturation 96.9 % (94-97); ABG PCO2 64 mmHg (35-45); ABG PO2 98 mmHg (83-108); ABG TCO2 41 mmol/L (19-24); Allen Test Performed? Yes
[2019-01-10] MEDS: FORMOTEROL FUMARATE 20 MCG/2 ML NEBU INHALATION SCH (07:14)
[2019-01-10] MEDS: BUDESONIDE 1 MG/2 ML NEBU INHALATION SCH (07:14)
--- NOTE | 2019-01-10 07:25 | XR ---
EXAMINATION TYPE: XR chest 1V portable DATE OF EXAM: 01/10/2019 HISTORY: SOB . REFERENCE: Previous study dated 01/09/2019. FINDINGS: Is a tracheostomy tube in place. The tip overlies the tracheal air column in this single fr ontal projection. There are bilateral internal jugular lines in place. The tips are both in the super ior vena cava. The heart is not enlarged. There is an enlarging, thick-walled, 9.3 cm cavitary mass in the right upp er lobe. There is bilateral alveolar airspace disease. There are small effusions. IMPRESSION: 1. ENLARGING CAVITARY LESION IN THE RIGHT UPPER LOBE. 2. CONTINUING BILATERAL ALVEOLAR AIRSPACE DISEASE. 3. SMALL, BILATERAL EFFUSIONS.
[2019-01-10 08:38] LABS: Anisocytosis Slight; HGB 9.4 gm/dL (13.0-17.5); Hypochromasia Marked; MCH 28.9 pg (25.0-35.0); MCHC 29.2 g/dL (31.0-37.0); MCV 98.8 fL (80.0-100.0); Macrocytosis Slight; Mean Platelet Volume 9.3; Platelet Count 148 k/uL (150-450); RBC 3.24 m/uL (4.30-5.90); RDW 18.9 % (11.5-15.5); WBC 24.6 k/uL (3.8-10.6)
[2019-01-10] MEDS: ANIDULAFUNGIN 100 MG in SODIUM CHLORIDE 0.9% 100 ML IVPB SCH (08:43)
[2019-01-10] MEDS: CHLORHEXIDINE GLUCONATE 15 ML CUP MUCOUS MEM SCH (08:43)
[2019-01-10] MEDS: PANTOPRAZOLE 40 MG/10 ML VIAL IVP SCH (08:44)
[2019-01-10] MEDS: FUROSEMIDE 10 MG/ML 4 ML VIAL IV SCH (08:45)
[2019-01-10] MEDS: MAG HYDROX/AL HYDROX/SIMETH 30 ML, LIDOCAINE VISCOUS 30 ML, diphenhydrAMINE ELIXIR 75 M... PO SCH ×4 (08:46)
[2019-01-10] MEDS: SENNOSIDES-DOCUSATE SODIUM 1 EACH TAB PO SCH (09:12)
[2019-01-10] MEDS: LACTULOSE 200 GM/300 ML (FROM 1/2 GAL JUG) RECTAL SCH (09:12)
[2019-01-10 10:39] LABS: Band Neutrophils % 2 %; Eosinophils # (M) 0.25 k/uL (0-0.7); Lymphocytes # (M) 0.98 k/uL (1.0-4.8); Neutrophils % (M) 93 %; Nucleated Red Blood Cells 0 /100 WBC (0-0); Total Cells Counted 100
--- NOTE | 2019-01-10 10:39 | P.PN ---
Subjective Progress Note Date: 01/10/19 Principal diagnosis: Acute hypoxic respiratory failure/ARDS with diffuse bilateral pulmonary infiltrates. On 01/05/2019, I'm seeing this patient for a follow-up. The patient is post tracheostomy tube insertion that was done yesterday without any complications. We are trying to wean him off the Nimbex for now. We were able to get it off yesterday yet briefly he required minimal paralysis to maintain synchrony. Note that this morning, the patient was quite comfortable. I changed him to VC loss mode with a tidal volume of 400 and the rate of 34 with an FiO2 of 55% and PEEP of 12. He is I time is 1. the patient is having some leaks around the tracheostomy tube and he is losing some volumes. This is probably in the form of 50 mL and for that reason I increased the tidal volume to counteract for that. His static pressures remains below 35. His blood gases on the current vent settings shows a pH of 7. episodes of 84 and pO2 of 81. The patient's chest x-ray shows no changes. Tracheostomy tube is in a good location. White cell count is up to 21. Nevertheless he does not have any fever. The orogastric tube has been removed. The patient has TPN for nutritional support. We will still being diuresis with IV Lasix. He was given Diamox for metabolic alkalosis. His serum bicarbs at 38. He is on IV Lasix. The fluid balance is - 2.4 L over the past 24 hours. The patient is receiving Lasix 40 mg IV push every 24 hours. He remains on broad-spectrum antibiotics. He remains on IV Solu-Medrol. His cardiac rhythm is sinus. He is on a combination of propofol for sedation index was being is less for paralysis. Tracheostomy tube is in place for now. This is a Bivona tracheostomy tube #8 with a foamy cuff Reevaluated today on 01/06/2019, patient remains on mechanical ventilation, off levo fed, off Nimbex, ventilator settings are tidal volume of 500, assist control rate of 30, FiO2 55%, and PEEP of 12. Patient is on fentanyl at 75 mcg/h, his also on propofol at 75 mcg/kg/m. He is also on TPN, continues to have significant leak from the tracheostomy site, and were making up for the leak by increasing his tidal volume from 400-500. He is actually getting about 400 mL of tidal volume. Repeat ABG showed a pO2 of 65 is CO2 of 76 pH of 7.40. CBC showed WBC count of 17 hemoglobin of 10.2. Chest x-ray showed small left pleural effusion and bibasilar reticulonodular infiltrates and/or edema. Patient is fully sedated, and his ventilator settings were adjusted accordingly. Reevaluated today on 01/07/2019, remains on mechanical ventilation, presently off norepinephrine for the last 1 hour. His ventilator settings are assist control rate of 30 tidal volume of 500, FiO2 of 50%, PEEP of 12. Patient is presently off norepinephrine, remains on fentanyl at 1 mcg/kg/h, and he is on propofol at 50 mcg/kg/m. Remains on TPN, labs including ABG showed a pO2 of 139 pCO2 of 59 pH of 7.48. His WBC count is 12.6 hemoglobin is 9.9 electrolytes were reviewed his bicarb is elevated at 38, BUN is 28 creatinine 0.32. Patient continues to have about 100 mL leak per tidal volume through the tracheostomy. And were making up for this volume loss by increasing his tidal volume up to 500 and he seems to be getting about 400 mL of tidal volume. FiO2 was cut down to 50%, and the plan is to cut down the PEEP hopefully to 10 or maybe 8. Family is at bedside, and clearly the patient is nowhere near weaning but will try to give him a sedation holiday today, and at least assess mental status. We will hold propofol and fentanyl for a short of time and assess mental status. Chest x-ray is showing some improvement especially in the left lower lobe infiltrate and left pleural effusion. Remains on antibiotics for presumptive aspiration pneumonia. Reevaluated today on , remains on mechanical ventilation, present vent settings are assist control rate of 30 tidal volume of 500 FiO2 of 55% PEEP of 12 the plateau pressures about 26. Patient remains on propofol at 50 mcg/kg/m, his also on sentinel at 1.5 mcg/kg/h. Yesterday he had a slight drop in his sedation, and he became extremely tachypneic, tachycardic, and very asynchronous with mechanical ventilation, and Desaturating, had to be placed back on sedation. Remains off Nimbex. Chest x-ray continues to show bilateral interstitial opacities, right more so than left, and bibasilar atelectasis. Small pleural effusions noted. Not much of a change noted on the chest x-ray. ABG today showed a pO2 of 86 pCO2 of 62 pH of 7.41. CBC showed the PEEP cigar 40.3 hemoglobin of 9.9. Electrolytes are normal. BUN is 28 creatinine is 0.39. Reevaluated today on 01/09/2019, patient remains on mechanical ventilation, his ventilator settings are assist control rate of 30, tidal volume of 500, FiO2 55%, PEEP of 12. Remains on fentanyl at 1.5 mcg/kg/h and on propofol 60 mcg/kg/m. Off levo fed, patient seems to require significant amount of sedation otherwise he becomes extremely agitated and asynchronous with mechanical ventilation. His even requiring Dilaudid in addition to his fentanyl drip. Chest x-ray is basically about the same showing pulmonary vascular congestion with scattered infiltrates and effusions bilaterally. No significant change in the last 2 days. ABG this morning showed a pO2 of 99 pCO2 of 61 pH of 7.42. Patient remains on TPN, remains on rectal lactulose. Ammonia level today is 46. Reevaluated today on 01/10/2019, remains on mechanical ventilation, his vent settings are the same except his FiO2 was cut down to 50%. ABG showed a pO2 of 98 pCO2 of 64 pH of 7.40. His ammonia level is normal, hence we discontinued lactulose today. Patient continues to require significant amount of sedation and narcotics to keep him calm and to be synchronous with mechanical ventilation. His blood pressures extremely loud bile up and down, presently not requiring any norepinephrine. Chest x-ray is basically about the same, however today were seeing a large cavity in the right upper lobe, not seen on previous x-rays, however was present on a previous CT of the chest as a bulla and I believe were seeing it more on the chest x-ray today I believe it is a large bulla in the right upper lobe. Although the possibility of an abscess developing in the right upper lobe is not entirely ruled out, could even be malignant lesion. Patient is not a candidate for any major intervention he will not be able to tolerate even bronchoscopy. Tarik temps that yesterday, cultures were ordered, and are pending. is at bedside, updated on his condition, a nd at this rate we may be looking possibly to consider comfort care measures. Family has not yet decided to proceed that trial. All labs, x-rays, vent settings, ABG, were all reviewed. Continues to have a bit of the leak about 100 mL per tidal volume from tracheostomy. And were making up for this by increasing his tidal volume from 400-500. Objective - Vital Signs Vital signs: Vital Signs Temp 97.9 F 01/10/19 08:00 Pulse 122 H 01/10/19 10:00 Resp 24 01/10/19 10:00 BP 130/76 01/10/19 09:15 Pulse Ox 96 01/10/19 10:00 Intake & Output 01/09/19 01/10/19 01/10/19 18:59 06:59 18:59 Intake Total 2040.104 1280.755 615.534 Output Total 1999 995 1250 Balance 40.104 285.755 -634.466 Weight 79.4 kg 79.4 kg Intake: IV 1696 683 542 .9 360 210 80 Anidulafungin 100 mg In 100 Sodium Chloride 0.9% 100 ml @ 84 mls/hr IVPB DAILY [facility] Rx#:[id number] Calcium Gluconate 1 gm 700 70 Potassium Phosphate 10 mmol Sodium Chloride 2. 5MEQ/ml Vial 25 meq In Amino Acid 5%-D15w 1,000 ml @ 70 mls/hr IV .BY DURATION [facility] Rx#: [id number] Meropenem 1 gm In Sodium 100 100 100 Chloride 0.9% 100 ml @ 200 mls/hr IVPB Q8HR [facility] Rx#:[id number] Sodium Chloride 0.9% 1, 20 000 ml @ 20 mls/hr IV . Q24H [facility] Rx#:[id number] Vancomycin 1,250 mg In 500 250 250 Sodium Chloride 0.9% 250 ml @ 125 mls/hr IVPB Q8H [facility] Rx#:[id number] pressure bag 36 33 12 Intake, IV Titration 344.104 597.755 73.534 Amount Norepinephrine 32 mg In 0.096 7.167 Sodium Chloride 0.9% 218 ml @ 0.05 MCG/KG/MIN 1. 807 mls/hr IV .Q24H [facility] Rx#:[id number] Propofol 1,000 mg In 265.700 446.454 55.461 Empty Bag 1 bag @ Titrate IV .Q0M [facility] Rx#: [id number] fentaNYL (PF) 1,000 mcg 78.404 151.205 10.906 In Sodium Chloride 0.9% 80 ml @ 1 MCG/KG/HR 7.98 mls/hr IV .[id number] [facility] Rx #:[id number] Output: Urine 2000 995 1250 Other: Voiding Method Indwelling Catheter Indwelling Catheter ABP, PAP, CO, CI - Last Documented Arterial Blood Pressure 168/78 - Exam General: Revealed a 48-year-old white male sedated, on mechanical ventilation, sedated. Head: Atraumatic, normocephalic Neck: Supple, Neck was supple and without jugular venous distension, thyromegaly, or carotid bruits. Carotids were easily palpable bilaterally. Tracheostomy seems to be intact, air leak persists. Mouth: Normal mucous membranes, moist, no thrush noted. Neck: No Palpable cervical, tracheostomy is intact. No neck masses. Heart: Normal S1 and S2, no gallop. No murmur. heart sound was noted. There were no murmurs, rubs, clicks, or gallops. Lungs: Crackles and rhonchi bilaterally. Abdomen: Soft nontender no megaly no rebound no guarding. Extremities: No clubbing edema or cyanosis, good pulses bilaterally Neurological: Cannot be assessed, patient is fully sedated, cannot cut down on sedation because of his extreme agitation Psych: Unable to perform, sedated with propofol and fentanyl. Examination of the skin showed no rashes, no erythema. - Labs CBC & Chem 7: 01/10/19 04:25 01/10/19 04:25 Labs: Abnormal Lab Results - Last 24 Hours (Table) 01/09/19 01/09/19 01/10/19 Range/Units 12:01 18:28 00:22 WBC (3.8-10.6) k/uL RBC (4.30-5.90) m/uL Hgb (13.0-17.5) gm/dL Hct (39.0-53.0) % MCHC (31.0-37.0) g/dL RDW (11.5-15.5) % Plt Count (150-450) k/uL ABG pCO2 (35-45) mmHg ABG HCO3 (21-25) mmol/L ABG Total CO2 (19-24) mmol/L Carbon Dioxide (22-30) mmol/L BUN (9-20) mg/dL Creatinine (0.66-1.25) mg/dL Glucose (74-99) mg/dL POC Glucose (mg/dL) 138 H 143 H 140 H (75-99) mg/dL Calcium (8.4-10.2) mg/dL Alkaline Phosphatase (38-126) U/L Ammonia (<30) umol/L Total Protein (6.3-8.2) g/dL Albumin (3.5-5.0) g/dL 01/10/19 01/10/19 01/10/19 Range/Units 04:25 04:25 05:45 WBC 24.6 H (3.8-10.6) k/uL RBC 3.24 L (4.30-5.90) m/uL Hgb 9.4 L (13.0-17.5) gm/dL Hct 32.0 L (39.0-53.0) % MCHC 29.2 L (31.0-37.0) g/dL RDW 18.9 H (11.5-15.5) % Plt Count 148 L (150-450) k/uL ABG pCO2 (35-45) mmHg ABG HCO3 (21-25) mmol/L ABG Total CO2 (19-24) mmol/L Carbon Dioxide 40 H (22-30) mmol/L BUN 23 H (9-20) mg/dL Creatinine 0.39 L (0.66-1.25) mg/dL Glucose 161 H (74-99) mg/dL POC Glucose (mg/dL) 162 H (75-99) mg/dL Calcium 8.3 L (8.4-10.2) mg/dL Alkaline Phosphatase 145 H (38-126) U/L Ammonia (<30) umol/L Total Protein 4.7 L (6.3-8.2) g/dL Albumin 2.2 L (3.5-5.0) g/dL 01/10/19 01/10/19 Range/Units 06:00 07:06 WBC (3.8-10.6) k/uL RBC (4.30-5.90) m/uL Hgb (13.0-17.5) gm/dL Hct (39.0-53.0) % MCHC (31.0-37.0) g/dL RDW (11.5-15.5) % Plt Count (150-450) k/uL ABG pCO2 64 H (35-45) mmHg ABG HCO3 39 H (21-25) mmol/L ABG Total CO2 41 H (19-24) mmol/L Carbon Dioxide (22-30) mmol/L BUN (9-20) mg/dL Creatinine (0.66-1.25) mg/dL Glucose (74-99) mg/dL POC Glucose (mg/dL) (75-99) mg/dL Calcium (8.4-10.2) mg/dL Alkaline Phosphatase (38-126) U/L Ammonia 41 H (<30) umol/L Total Protein (6.3-8.2) g/dL Albumin (3.5-5.0) g/dL Microbiology - Last 24 Hours (Table) 01/09/19 23:36 Urine Culture - Preliminary Urine,Catheterized 01/09/19 19:49 Gram Stain - Preliminary Sputum Sputum Culture - Preliminary Assessment and Plan Assessment: Impression: 1 acute hypoxic respiratory failure/ARDS with bilateral pulmonary infiltrates, most likely secondary to aspiration pneumonia, possibility of lymphangitic carcinomatosis involving the lungs is not entirely ruled out 2 metastatic esophageal cancer, possible lymphangitic carcinomatosis. Patient is not a good candidate for bronchoscopy. 3 recurrent episodes of aspiration pneumonia 4 oropharyngeal candidiasis, improving on Diflucan. 5 history of generalized anxiety disorder 6 acute septic shock and acute hypotension on presentation, resolved. 7 right upper lobe cavitary lesion possibly a large bulla although possibility of abscess or malignancy is not entirely ruled out. Recommendation: Continue ventilatory support Continue nutritional support Continue antibiotics, steroids, bronchodilators, GI and DVT prophylaxis, cutting down on sedation , multiple trials have failed. And continues to fail. Possible evolving cavitary lesion in the right upper lobe, patient is not a good candidate for bronchoscopy and further assessment. We'll continue to monitor. Discussed his condition with the again today, explained to the that his condition is not getting any better, as a matter of fact a sense we are getting a bit worse. And may have to start considering the issue of comfort care measures. Family will discuss this, and once they are ready we'll proceed with comfort care measures. Again prognosis is extremely poor. Critical care time is 40 minutes. F Time with Patient: Greater than 30
[2019-01-10 11:19] VITALS: BP 101/58; RESP 30
--- NOTE | 2019-01-10 11:19 | P.PN ---
Subjective Progress Note Date: 01/10/19 Principal diagnosis: Septic shock with respiratory failure Continues to be intubated/trached and sedated, on pressors. Broad spectrum antimicrobials. Afebrile. CXR unchanged airspace disease however shows enlarging RUL thick walled cavitary lesion. Objective - Vital Signs Vital signs: Vital Signs Temp 97.9 F 01/10/19 08:00 Pulse 85 01/10/19 08:00 Resp 26 H 01/10/19 08:00 BP 79/48 01/10/19 08:00 Pulse Ox 98 01/10/19 08:00 Intake & Output 01/09/19 01/10/19 01/10/19 18:59 06:59 18:59 Intake Total 2040.104 1280.755 347.741 Output Total 1999 995 240 Balance 40.104 285.755 107.741 Weight 79.4 kg 79.4 kg Intake: IV 1696 683 296 .9 360 210 40 Calcium Gluconate 1 gm 700 70 Potassium Phosphate 10 mmol Sodium Chloride 2. 5MEQ/ml Vial 25 meq In Amino Acid 5%-D15w 1,000 ml @ 70 mls/hr IV .BY DURATION [facility] Rx#: [id number] Meropenem 1 gm In Sodium 100 100 Chloride 0.9% 100 ml @ 200 mls/hr IVPB Q8HR [facility] Rx#:[id number] Sodium Chloride 0.9% 1, 20 000 ml @ 20 mls/hr IV . Q24H [facility] Rx#:[id number] Vancomycin 1,250 mg In 500 250 250 Sodium Chloride 0.9% 250 ml @ 125 mls/hr IVPB Q8H [facility] Rx#:[id number] pressure bag 36 33 6 Intake, IV Titration 344.104 597.755 51.741 Amount Norepinephrine 32 mg In 0.096 4.589 Sodium Chloride 0.9% 218 ml @ 0.05 MCG/KG/MIN 1. 807 mls/hr IV .Q24H [facility] Rx#:[id number] Propofol 1,000 mg In 265.700 446.454 36.246 Empty Bag 1 bag @ Titrate IV .Q0M [facility] Rx#: [id number] fentaNYL (PF) 1,000 mcg 78.404 151.205 10.906 In Sodium Chloride 0.9% 80 ml @ 1 MCG/KG/HR 7.98 mls/hr IV .[id number] [facility] Rx #:[id number] Output: Urine 1999 995 240 Other: Voiding Method Indwelling Catheter Indwelling Catheter ABP, PAP, CO, CI - Last Documented Arterial Blood Pressure 164/76 - Exam General: NAD. Intubated and sedated. HEENT: Mucosa moist. Neck: Supple. Lungs: Trached and intubated. Diffuse coarse breath sounds. Heart: Regular rate. Abd: Soft, nontender. MSK: Intubated and sedated. Neuro: Intubated and sedated. Extremities: Trace bilateral LE edema Skin: No jaundice. Psych: Intubated and sedated. - Labs CBC & Chem 7: 01/10/19 04:25 01/10/19 04:25 Labs: Abnormal Lab Results - Last 24 Hours (Table) 01/06/19 01/06/19 01/09/19 Range/Units 04:45 10:15 12:01 WBC (3.8-10.6) k/uL RBC (4.30-5.90) m/uL Hgb (13.0-17.5) gm/dL Hct (39.0-53.0) % MCHC (31.0-37.0) g/dL RDW (11.5-15.5) % Plt Count (150-450) k/uL ABG pCO2 76 H* (35-45) mmHg ABG HCO3 43 H* 47 H* (21-25) mmol/L ABG Total CO2 (19-24) mmol/L Carbon Dioxide (22-30) mmol/L BUN (9-20) mg/dL Creatinine (0.66-1.25) mg/dL Glucose (74-99) mg/dL POC Glucose (mg/dL) 138 H (75-99) mg/dL Calcium (8.4-10.2) mg/dL Alkaline Phosphatase (38-126) U/L Ammonia (<30) umol/L Total Protein (6.3-8.2) g/dL Albumin (3.5-5.0) g/dL 01/09/19 01/10/19 01/10/19 Range/Units 18:28 00:22 04:25 WBC (3.8-10.6) k/uL RBC (4.30-5.90) m/uL Hgb (13.0-17.5) gm/dL Hct (39.0-53.0) % MCHC (31.0-37.0) g/dL RDW (11.5-15.5) % Plt Count (150-450) k/uL ABG pCO2 (35-45) mmHg ABG HCO3 (21-25) mmol/L ABG Total CO2 (19-24) mmol/L Carbon Dioxide 40 H (22-30) mmol/L BUN 23 H (9-20) mg/dL Creatinine 0.39 L (0.66-1.25) mg/dL Glucose 161 H (74-99) mg/dL POC Glucose (mg/dL) 143 H 140 H (75-99) mg/dL Calcium 8.3 L (8.4-10.2) mg/dL Alkaline Phosphatase 145 H (38-126) U/L Ammonia (<30) umol/L Total Protein 4.7 L (6.3-8.2) g/dL Albumin 2.2 L (3.5-5.0) g/dL 01/10/19 01/10/19 01/10/19 Range/Units 04:25 05:45 06:00 WBC 24.6 H (3.8-10.6) k/uL RBC 3.24 L (4.30-5.90) m/uL Hgb 9.4 L (13.0-17.5) gm/dL Hct 32.0 L (39.0-53.0) % MCHC 29.2 L (31.0-37.0) g/dL RDW 18.9 H (11.5-15.5) % Plt Count 148 L (150-450) k/uL ABG pCO2 (35-45) mmHg ABG HCO3 (21-25) mmol/L ABG Total CO2 (19-24) mmol/L Carbon Dioxide (22-30) mmol/L BUN (9-20) mg/dL Creatinine (0.66-1.25) mg/dL Glucose (74-99) mg/dL POC Glucose (mg/dL) 162 H (75-99) mg/dL Calcium (8.4-10.2) mg/dL Alkaline Phosphatase (38-126) U/L Ammonia 41 H (<30) umol/L Total Protein (6.3-8.2) g/dL Albumin (3.5-5.0) g/dL 01/10/19 Range/Units 07:06 WBC (3.8-10.6) k/uL RBC (4.30-5.90) m/uL Hgb (13.0-17.5) gm/dL Hct (39.0-53.0) % MCHC (31.0-37.0) g/dL RDW (11.5-15.5) % Plt Count (150-450) k/uL ABG pCO2 64 H (35-45) mmHg ABG HCO3 39 H (21-25) mmol/L ABG Total CO2 41 H (19-24) mmol/L Carbon Dioxide (22-30) mmol/L BUN (9-20) mg/dL Creatinine (0.66-1.25) mg/dL Glucose (74-99) mg/dL POC Glucose (mg/dL) (75-99) mg/dL Calcium (8.4-10.2) mg/dL Alkaline Phosphatase (38-126) U/L Ammonia (<30) umol/L Total Protein (6.3-8.2) g/dL Albumin (3.5-5.0) g/dL Microbiology - Last 24 Hours (Table) 01/09/19 23:36 Urine Culture - Preliminary Urine,Catheterized 01/09/19 19:49 Gram Stain - Preliminary Sputum Sputum Culture - Preliminary Assessment and Plan Assessment: 1. Esophageal cancer 2. Septic shock 3. Hypoxic respiratory failure, ARDS 4. Cavitary RUL lesion 5. Oropharyngeal candidiasis 6. Leukocytosis, reactive due to sepsis/stress and steroids 7. Bicytopenia, anemia and mild thrombocytopenia, likely due to DIC and sepsis Plan: Mr. Pearce is a very pleasant 48 yo male with history of metastatic esophageal carcinoma, here for fevers on chemotherapy. 1. Metastatic esophageal cancer - Was due for next cycle of chemotherapy on day prior to admission. Held for admission. Continue to hold treatment until pt recovers and PS improves after his prolonged hospitalization. 2. Septic shock - Continues to be intubated via trach and sedated, on pressors. Unclear etiology. Broad spectrum antimicrobials. ID and pulmonary following. 3. Hypoxic respiratory failure, ARDS - Continues to be intubated via trach. CXR with new cavitary RUL lesion compared to prior CXR, however seen on prior CT. Appreciate pulm rec's. 4. Cavitary RUL lesion - Appreciate pulm rec's. Bleb vs abscess vs malignancy. Pt unable to tolerate bronchoscopy per pulm to better identify. 5. Oropharyngeal candidiasis - On antifungals as per ID 6. Leukocytosis, reactive due to sepsis/stress and steroids - Monitor for now. 7. Bicytopenia, anemia and mild thrombocytopenia, likely due to medications and sepsis - Plt have been low normal, today 140's. Overall Hgb and plt stable, possibly very slowly downtrending. No bleeding or oozing or evidence of thrombosis. For now, will monitor and plan on supportive transfusions for Hgb <7 or symptomatic anemia or plt <20 or bleeding/procedures.
[2019-01-10 11:45] LABS: Glucose,Whole Blood 141 mg/dL (75-99)
[2019-01-10 12:10] VITALS: PULSE 112; TEMP 98.2
[2019-01-11] MEDS ORDERED: VANCOMYCIN TROUGH DUE 1 EACH MISC MISCELLANE ONE (14:00)
--- NOTE | 2019-01-13 07:28 | CDI ---
Documentation Clarification Form Date: 01/13/19 From: Julio Thapa Phone: call to [phone] Admit Date: 12/24/2018 8:30:00 AM Patient Name: Robe Pearce Visit Number: [id number] Discharge Date: 01/10/2019 3:27:00 PM ATTENTION: The Clinical Documentation Specialists (CDI) and [facility] Coding Staff appreciate your assistance in clarifying documentation. Please respond to the clarification below the line at the bottom and electronically sign. The CDI & [facility] Coding staff will review the response and follow-up if needed. Please note: Queries are made part of the Legal Health Record. If you have any questions, please contact the author of this message via ITS. Dr. Gerard Lockwood, Encephalopathy is documented in the 01/09 progress note as continue lactulose for Encephaloapthy. History/Risk Factors:septic shock, ASP PNA Treatment: Lactulose. patient is having Hyperkalemia, Fluid overload,mixed acid- base disorder and underwent TPN administration. Patient is on intubation. In 01/09 Progress note alone documented Encephaloapthy. In your professional opinion, can you please clarify the specific type of Encephalopathy, if known? Metabolic Encephalopathy Septic Encephalopathy Toxic Encephalopathy Hepatic Encephalopathy, if indicated, please clarify: Indicate if any complications: Coma, other disease process? Indicate whether acute, sub-acute or chronic? Causal Condition: Alcoholism, Hepatitis, other disease process? Other, please specify Unable to determine MTDD
--- NOTE | 2019-01-15 11:30 | CDI ---
Documentation Clarification Form Date: 01/15/2019 11:18:35 AM From: Lindsey Pratt RN, CCDS Email: [email or web address] Admit Date: 12/24/2018 8:30:00 AM Patient Name: Robe Pearce Visit Number: [id number] Discharge Date: 01/10/2019 3:27:00 PM ATTENTION: The Clinical Documentation Specialists (CDI) and [facility] Coding Staff appreciate your assistance in clarifying documentation. Please respond to the clarification below the line at the bottom and electronically sign. The CDI & [facility] Coding staff will review the response and follow-up if needed. Please note: Queries are made part of the Legal Health Record. If you have any questions, please contact the author of this message via ITS. Dr. Gerard Lockwood Patient suffers from Anxiety and Depression according to the progress notes. History/Risk factors: 48 yo male with Esophageal cancer with stomach and spinal mets, currently on chemotherapy. Medically disabled Clinical indicators: chronically ill, fatigue, malaise Treatment: Desyrel, IV Ativan In your professional opinion, can you please clarify if the condition can be further specified? Specify type if known Single or recurrent episode Mild, moderate, or severe With or without psychotic features Whether in partial or full remission Other (please specify) __depression / anxiety r/t terminal diagnosis Unable to determine MTDD
--- NOTE | 2019-01-15 11:41 | CDI ---
Documentation Clarification Form Date: 01/15/2019 11:31:18 AM From: Lindsey Pratt RN, CCDS Email: [email or web address] Admit Date: 12/24/2018 8:30:00 AM Patient Name: Robe Pearce Visit Number: [id number] Discharge Date: 01/10/2019 3:27:00 PM ATTENTION: The Clinical Documentation Specialists (CDI) and [facility] Coding Staff appreciate your assistance in clarifying documentation. Please respond to the clarification below the line at the bottom and electronically sign. The CDI & [facility] Coding staff will review the response and follow-up if needed. Please note: Queries are made part of the Legal Health Record. If you have any questions, please contact the author of this message via ITS. Dr. Gerard Lockwood Inadequate energy intake has been documented by the Registered Dietitian. History/Risk Factors: Esophageal cancer with metastases to the stomach and spine. S/P esophagectomy with gastric pull through. Chemotherapy and radiation, chronically aspirates, currently NPO Clinical Indicators: poor oral intake, NPO, nausea, vomiting, fever Labs: Albumin/Total Protein: 2.2/4.7 Current BMI: 24 Insufficient energy intake: inadequate Treatment: TPN, monitor labs Dietary Consult: RD with assessment of inadequate energy intake Lab monitoring: electrolytes In your professional opinion, can you please clarify if these findings signify one of the following conditions? Mild Protein-Calorie Malnutrition - SA ?Moderate Protein-Calorie Malnutrition ?Severe Protein-Calorie Malnutrition ?Other condition, please specify ?Unable to determine MTDD
--- NOTE | 2019-01-26 08:20 | ECHOF ---
Referral Reason:assess left ventricular function MEASUREMENTS -------- HEIGHT: 182.9 cm WEIGHT: 76.7 kg BP: 100/63 IVSd: 0.9 cm (0.6 - 1.1) LVIDd: 3.3 cm (3.9 - 5.3) LVPWd: 1.0 cm (0.6 - 1.1) IVSs: 1.5 cm LVIDs: 2.0 cm LVPWs: 1.4 cm RVIDd: 4.5 cm (< 3.3) Ao Diam: 3.3 cm (2.0 - 3.7) LA Diam: 2.9 cm (2.7 - 3.8) AV Cusp: 1.7 cm (1.5 - 2.6) EPSS: 1.1 cm MV E Quan: 0.59 m/s MV DecT: 227 ms MV A Quan: 0.57 m/s MV E/A Ratio: 1.04 RAP: 20.00 mmHg RVSP: 61.54 mmHg MV EF SLOPE: 90.59 mm/s (70 - 150) MV EXCURSION: 18.44 mm (> 18.000) FINDINGS -------- Sinus rhythm. This was a technically difficult study with suboptimal views. Pt. on a vent. Study taken from [facility]. The left ventricular size is normal. Left ventricular wall thickness is normal. Overall left vent ricular systolic function is normal with, an EF between 55 - 60 %. The right ventricle is severely enlarged. The left atrial size is normal. The right atrial size is normal. Interatrial and interventricular septum intact. The aortic valve was not well visualized. The mitral valve was not well visualized. There is trace mitral regurgitation. Mild tricuspid regurgitation present. There is moderate pulmonary hypertension. The right ventric ular systolic pressure, as measured by Doppler, is 61.54mmHg. There is no pulmonic regurgitation present. The aortic root size is normal. The inferior vena cava is dilated with no significant inspiratory collapse which is consistent estima margot right atrial pressure of >20 mmHg. Large Pleural Effusion. CONCLUSIONS -------- 1. Sinus rhythm. 2. This was a technically difficult study with suboptimal views. 3. Pt. on a vent. 4. Study taken from [facility]. 5. The left ventricular size is normal. 6. Left ventricular wall thickness is normal. 7. Overall left ventricular systolic function is normal with, an EF between 55 - 60 %. 8. The right ventricle is severely enlarged. 9. The left atrial size is normal. 10. The right atrial size is normal. 11. Interatrial and interventricular septum intact. 12. The aortic valve was not well visualized. 13. The mitral valve was not well visualized. 14. There is trace mitral regurgitation. 15. Mild tricuspid regurgitation present. 16. There is moderate pulmonary hypertension. 17. The right ventricular systolic pressure, as measured by Doppler, is 61.54mmHg. 18. There is no pulmonic regurgitation present. 19. The aortic root size is normal. 20. The inferior vena cava is dilated with no significant inspiratory collapse which is consistent es timated right atrial pressure of >20 mmHg. 21. Large Pleural Effusion. RUBBER WORKER: Isha Baca RDCS
--- NOTE | 2019-02-16 18:46 | P.DS ---
Providers Date of admission: 12/24/18 08:30 Expected date of discharge: 01/10/19 Attending physician: Gerard Lockwood Consults: 12/24/18 10:01 Consult Physician Routine Consulting Provider: Asa Ortiz Consult Reason/Comments: SOB , decreased o2 sats Do you want consulting provider notified?: Yes Placement Type Exists?: Yes Consult Physician Routine Consulting Provider: Adalberto Mancera Consult Reason/Comments: fever Do you want consulting provider notified?: Yes Placement Type Exists?: Yes 12/24/18 14:31 Consult Physician Routine Consulting Provider: Suman Perez Consult Reason/Comments: med management Do you want consulting provider notified?: Yes 01/02/19 09:38 Consult Physician Urgent Consulting Provider: Srinivasa Jensen Consult Reason/Comments: trach placement Do you want consulting provider notified?: Yes 01/02/19 09:39 Consult Physician Routine Consulting Provider: Srinivasa Jensen Consult Reason/Comments: tracheostomy Do you want consulting provider notified?: Yes Primary care physician: Gerard Lockwood - Discharge Diagnosis(es) (1) Acute respiratory failure with hypoxia Status: Acute Priority: High (2) Fever Status: Acute (3) Pulmonary infiltrates Status: Acute (4) Esophageal cancer Status: Acute Hospital Course: Pt admitted with hypoxic respiratory failure, uncertain etiology-aspiration vs pneumonitis vs lymphangetic spread of disease. Treatments for all the aformentioned conditions were provided as well as supportive care, he had trach and PEG placed. Unfortunately, pt did not respond to treatments, leading conclusion that he had disease progression. He succumbed to his disease and on 01/10/19. Procedures: Trach PEG Mechanical ventilation Plan - Discharge Summary Discharge Rx Participant: No New Discharge Prescriptions: No Action traZODone HCL 150 mg PO HS Famotidine [Pepcid AC] 10 mg PO BID fentaNYL 75MCG/HR PATCH [Duragesic 75MCG/HR] 75 mcg PO Q72H LORazepam [Ativan] 0.5 mg PO TID Prochlorperazine [Compazine] 10 mg PO Q6H Ondansetron Odt [Zofran ODT] 4 mg SL Q6HR HYDROmorphone [Dilaudid] 2 mg PO TID Esomeprazole Magnesium [NexIUM] 40 mg PO BID Discharge Medication List traZODone HCL 150 mg PO HS 11/13/18 [History] Famotidine [Pepcid AC] 10 mg PO BID 07/09/18 [History] Esomeprazole Magnesium [NexIUM] 40 mg PO BID 12/24/18 [History] HYDROmorphone [Dilaudid] 2 mg PO TID 12/24/18 [History] LORazepam [Ativan] 0.5 mg PO TID 12/24/18 [History] Ondansetron Odt [Zofran ODT] 4 mg SL Q6HR 12/24/18 [History] Prochlorperazine [Compazine] 10 mg PO Q6H 12/24/18 [History] fentaNYL 75MCG/HR PATCH [Duragesic 75MCG/HR] 75 mcg PO Q72H 12/24/18 [History] Discharge Disposition: - Preliminary Cause of Preliminary Cause of : esophageal malignancy
--- NOTE | 2019-02-16 18:51 | P.PN ---
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 2) Protein/calorie malnutrition: Moderate, secondary to esophageal malignancy symptoms of dysphagia/odynophagia, NPO. Pt also on ventilator so, unable to take in orally. He was placed on TPN/lipids.
== END 2019-01-10 15:27 | disposition expired | DRG 4 ==
LOC: 4SSUR 08:30 → 2SICU 12-25 18:51
PROVIDERS: ADMIT Internal Medicine Hematology & Oncology; ATTEND Internal Medicine Hematology & Oncology
PROC: 05HN33Z Insertion of Infusion Device into Left Internal Jugular Vein, Percutaneous Approach (ICD-10-PCS; principal; 2018-12-29)
PROC: 0BH18EZ Insertion of Endotracheal Airway into Trachea, Via Natural or Artificial Opening Endoscopic (ICD-10-PCS; 2018-12-29)
PROC: 5A1945Z Respiratory Ventilation, 24-96 Consecutive Hours (ICD-10-PCS; 2018-12-29)
PROC: 03HC33Z Insertion of Infusion Device into Left Radial Artery, Percutaneous Approach (ICD-10-PCS; 2018-12-29)
PROC: 0B110F4 Bypass Trachea to Cutaneous with Tracheostomy Device, Open Approach (ICD-10-PCS; 2019-01-07)
PROC: 3E0436Z Introduction of Nutritional Substance into Central Vein, Percutaneous Approach (ICD-10-PCS; 2019-01-09)
DX: A41.9 Sepsis, unspecified organism (principal); J69.0 Pneumonitis due to inhalation of food and vomit; D65 Disseminated intravascular coagulation [defibrination syndrome]; J96.01 Acute respiratory failure with hypoxia; R65.21 Severe sepsis with septic shock; C15.9 Malignant neoplasm of esophagus, unspecified; C79.51 Secondary malignant neoplasm of bone; E72.20 Disorder of urea cycle metabolism, unspecified; E87.4 Mixed disorder of acid-base balance; B37.89 Other sites of candidiasis; Z99.11 Dependence on respirator [ventilator] status; C78.89 Secondary malignant neoplasm of other digestive organs; C78.02 Secondary malignant neoplasm of left lung; C78.01 Secondary malignant neoplasm of right lung; A69.0 Necrotizing ulcerative stomatitis; E87.5 Hyperkalemia; E87.70 Fluid overload, unspecified; F32.9 Major depressive disorder, single episode, unspecified; F41.0 Panic disorder [episodic paroxysmal anxiety]; Z66 Do not resuscitate; K21.9 Gastro-esophageal reflux disease without esophagitis; J43.0 Unilateral pulmonary emphysema [MacLeod's syndrome]; T45.1X5A Adverse effect of antineoplastic and immunosuppressive drugs, initial encounter; T50.905A Adverse effect of unspecified drugs, medicaments and biological substances, initial encounter; F41.1 Generalized anxiety disorder; G83.9 Paralytic syndrome, unspecified; I10 Essential (primary) hypertension; J45.909 Unspecified asthma, uncomplicated; Z92.3 Personal history of irradiation; Z87.730 Personal history of (corrected) cleft lip and palate; Z79.899 Other long term (current) drug therapy; Z88.5 Allergy status to narcotic agent; Z88.8 Allergy status to other drugs, medicaments and biological substances
CPT/HCPCS: 36600; 71045; 71046; 71275; 80048; 80053; 80202; 81003; 82040; 82140; 82330; 82550; 82805; 83735; 83880; 84100; 84132; 84478; 85025; 85027; 85610; 85730; 87040; 87070; 87077; 87086; 87186; 87205; 87502; 93306; 94002; 94003; 94640; 94660